=== PATIENT | female | born 1960 | race Caucasian/White ===

== ENCOUNTER 2017-10-24 09:19 | Day surgery (SDC) | payer OTHER ==
[~2017-10-24] VITALS: Ht 160 cm; Wt 95.0 kg
[~2017-10-24 09:19] MED LIST: CEFAZOLIN 1000MG IV PUSH 5 ML IV SCH; D5W AND 1/4NSS 1000 ML IV SCH; PATIENT'S ALLERGY INFO NEEDS ENTERED SCH
[2017-10-24 10:25] LABS: INR 2.9 (0.9-1.1); PARTIAL THROMBOPLASTIN RATIO 1.6; PROTHROMBIN TIME (PATIENT) 32.3 SECONDS (9.0-12.0)
[2017-10-24] MEDS ORDERED: CEFAZOLIN 1000MG IV PUSH 5 ML IV SCH (10:30)
[2017-10-24 10:34] LABS: POTASSIUM 5.4 mmol/L (3.5-5.1)
--- NOTE | 2017-10-24 10:50 | History and Physical ---
History & Physical Date Oct 24, 2017. Chief Complaint Malfunctioning right arm fistula History of Present Illness The patient is a 57 year old female who has a right upper arm fistula which is not running well. It has been there for over a year according to her. She is admitted for a fistulogram with possible intervention. Allergies Coded Allergies: Oxycodone (Verified Allergy, Intermediate, HIVES, 10/24/17) PER [facility] Sulfa Antibiotics (Verified Allergy, Intermediate, HIVES, 10/24/17) PER [facility] Hydrochlorothiazide w/Triamterene (Verified Allergy, Unknown, UNKNOWN, 10/24/17) Sulfonylureas (Verified Allergy, Unknown, UNKNOWN, 10/24/17) Uncoded Allergies: CARBONIC (Allergy, Unknown, UNKNOWN, 10/24/17) CRBONIC ANHYDRASE INHIBITORS Home Medications Scheduled Atorvastatin (Lipitor), 40 MG PO DAILY Bumetanide (Bumex), 1 TAB PO DAILY Calcium Carbonate (Tums), 1 TAB PO DAILY Cholecalciferol (Vitamin D3), 1 TAB PO DAILY Docusate Sodium (Docusate Sodium), 1 CAP PO BID Insulin Glargine (Lantus), 42 SC QAM Levothyroxine Sodium (Levothyroxine Sodium), 1 TAB PO DAILY Levothyroxine Sodium (Levothyroxine Sodium), 1 TAB PO DAILY Lidocaine-Prilocaine (Lidocaine/Prilocaine), 1 APPLN TOP 3XWK Melatonin (Melatonin), 2 TABS PO QPM Metoprolol Tartrate (Lopressor), 1 TAB PO BID Polyethylene Glycol 3350 (Miralax), 17 GM PO DAILY Pramipexole (Mirapex), 0.25 MG PO HS Senna (Senokot), 2 TAB PO HS Sertraline Hcl (Zoloft), 37.5 MG PO HS Warfarin Sod (Jantoven), 3 MG PO DAILY [Humalog], 4 UNITS SQ HS Scheduled PRN Acetaminophen (Tylenol), 2 TAB PO Q6 PRN for Pain Acetaminophen Tab (Tylenol), 650 MG PO Q4 PRN for Pain Bisacodyl (Bisacodyl), 1 TAB PO UD PRN for Constipation [Bisacodyl Supp], 1 SUPP RE DAILY PRN for Constipation Surgical / Medical History Hx Abdominal Surgery: Yes (3 c-sections) Past Medical/Surgical History: Depression, Diabetes, Kidney Disease, Thyroid Disease Social History Smoking Status: Former Smoker Hx Tobacco Use In Past Year?: No Hx Alcohol Use - Type & Amnt: No Hx Substance Use -Type & Amnt: No Review of Systems Constitutional: No chills, No diaphoresis, No fever, No malaise, No weakness, No weight gain, No weight loss, No sweats, No fatigue, No problem reported Respiratory: No cough, No cyanosis, No RAMIREZ, No hemoptysis, No orthopnea, No PND , No short of breath, No sputum production, No stridor, No wheezing, No dyspnea , No problem reported Cardiovascular: No chest pain, No chest tightness, No chest pressure, No palpitations, No syncope, No diaphoresis, No edema, No intermittent claudication , No orthopnea, No cyanosis, No mumur, No lightheadedness, No paroxysmal nocturnal dyspnea, No problem reported Gastrointestinal: No abdominal pain, No constipation, No diarrhea, No nausea, No vomiting, No anorexia, No appetite changes, No belching, No flatulence, No food intolerance, No hematemesis, No hemorrhoids, No hematochezia, No stool changes, No heartburn, No indigestion, No dysphagia, No rectal bleeding, No problem reported Musculoskeletal: No back pain, No gout, No joint pain, No joint swelling, No muscle pain, No muscle stiffness, No muscle weakness, No neck pain, No problem reported Neurologic: No dizziness, No weakness, No headache, No lethargy, No numbness, No paresthesia, No pre-existing deficit, No seizures, No tics, No tingling, No tremors, No vertigo, No memory loss, No LOC, No problem reported Psychiatric: + depression Physical Exam Constitutional: General Apperance: overweight Level of Distress: NAD Ambulation: ambulating normally Psychiatric: Mental Status: active & alert, normal mood, normal affect Orientation: oriented except where noted, to time, to place, to person Memory: recent memory normal, remote memory normal Head: normocephalic Lungs: Auscultation: breath sounds normal Cardiovascular: Heart Auscultation: RRR Peripheral Pulses: Radial Pulse: normal on the left, normal on the right Femoral Pulse: normal on the left, normal on the right Abdomen: Inspection & Palpation: soft Musculoskeletal: normal Extremities: Upper Right: no cyanosis, no edema, no varicosities, no palpable cord, no clubbing, no ulcers, no mottling Upper Left: no cyanosis, no edema, no varicosities, no palpable cord, no clubbing, no ulcers, no mottling Lower Right: no cyanosis, no edema, no varicosities, no palpable cord, no clubbing, no ulcers, no mottling, pertinent finding (thrill in antecubital fossa ) Lower Left: no cyanosis, no edema, no varicosities, no palpable cord, no clubbing, no ulcers, no mottling Neurologic: Cranial Nerves: grossly intact Sensation: grossly intact Assessment and Plan Imp: Malfunctioning right arm fistula Plan: Patient admitted for a fistulogram with possible intervention. I have discussed the risks options and benefits of the procedure with the patient. The patient understands the risks options and benefits and agrees to the procedure.
--- NOTE | 2017-10-24 10:50 | Procedure Note ---
Pre-Mod Sedation Assessment General Date of Moderate Sedation: Oct 24, 2017. Pre-Sedation Airway Assessment Oral Cavity: WNL Short Thick Neck: Yes Hx of Sleep Apnea: No Smoking Status: Former Smoker Mallampati Classification: Class I ASA Classification: Class III Notes The planned sedation has been discussed with the patient and consent obtained. I have identified the patient, determined the appropriateness of sedation and have assessed the patient immediately prior to the procedure. All medicine(s) and interventions are by my order.
[2017-10-24 10:53] VITALS: BP 131/66; PULSE 70; TEMP 36.7; O2SAT 100; Ht 160 cm; Wt 95.0 kg
[2017-10-24] MEDS ORDERED: CEFAZOLIN SOD 2000MG/10 ML IV PUSH IV ONE (11:03)
[2017-10-24] MEDS ORDERED: FENTANYL CITRATE INJ 50 MCG/1 ML 2 ML VIAL ONE (11:07)
[2017-10-24] MEDS ORDERED: MIDAZOLAM HCL 1 MG/ML 2ML VIAL ONE (11:07)
[2017-10-24] MEDS ORDERED: CLINDAMYCIN 600 MG/54 ML D5W IV ONE (11:13)
[2017-10-24] MEDS ORDERED: CLINDAMYCIN IV 600 MG in DEXTROSE 5% 50ML 50 ML IV ONE (11:15)
[2017-10-24] MEDS ORDERED: LIDO1CRE16 TOP (11:16)
[2017-10-24] MEDS ORDERED: BUME2TAB3 PO (11:16)
[2017-10-24] MEDS ORDERED: POLY335019 PO (11:16)
[2017-10-24] MEDS ORDERED: CALC500C3 PO (11:16)
[2017-10-24] MEDS ORDERED: WARF3TAB6 PO (11:16)
[2017-10-24] MEDS ORDERED: MELA1TAB49 PO (11:16)
[2017-10-24] MEDS ORDERED: METO-551 PO (11:16)
[2017-10-24] MEDS ORDERED: INSDGI SC (11:16)
[2017-10-24] MEDS ORDERED: LEVO200T6 PO (11:16)
[2017-10-24] MEDS ORDERED: LEVO25TA5 PO (11:16)
[2017-10-24] MEDS ORDERED: PRAM0.129 PO (11:16)
[2017-10-24] MEDS ORDERED: HUMALOG SQ (11:16)
[2017-10-24] MEDS ORDERED: SERT25TA PO (11:16)
[2017-10-24] MEDS ORDERED: LPT/40 PO (11:16)
[2017-10-24] MEDS ORDERED: DOCU100C31 PO (11:16)
[2017-10-24] MEDS ORDERED: CHOL20007 PO (11:16)
[2017-10-24] MEDS ORDERED: SENN-61 PO (11:16)
[2017-10-24] MEDS ORDERED: BISACODYL SUPP RE (11:30)
[2017-10-24] MEDS ORDERED: ACET325T96 PO (11:30)
[2017-10-24] MEDS ORDERED: ACET-1256 PO (11:30)
[2017-10-24] MEDS ORDERED: BISA1TAB15 PO (11:30)
[2017-10-24] MEDS ORDERED: LIDOCAINE HCL 1% 20 ML VIAL INJ ONE (11:36)
--- NOTE | 2017-10-24 11:47 | [facility] Post Operative Brief Note ---
Immediate Operative Summary Operative Date Oct 24, 2017. Pre-Operative Diagnosis Malfunctioning Fistula Post-Operative Diagnosis Same Procedure(s) Performed Fistulogram Surgeon Derrick Methods Study Analyst Surgeon(s) None Estimated Blood Loss 1 Findings proximal stenosis at arterial anastomosis Specimens None Anesthesia Local Complication(s) None Disposition
--- NOTE | 2017-10-24 11:50 | Discharge Instructions ---
Discharge Instructions Date of Service Oct 24, 2017. Visit Reason for Visit: End Stage Renal Disease - On Hemodialysis Discharge Discharge Diagnosis / Problem: Malfunctioning fistula right arm Discharge Goals Goal(s): Diagnostic testing Activity Recommendations Activity Limitations: resume your previous activity Anesthesia . Post Anesthesia Instructions: If you have had General Anesthesia or IV Sedation: * Do not drive today. * Resume driving when surgeon permits. * Do not make important decisions or sign legal documents today. * Call surgeon for: 1. Temperature elevations greater than 101 degrees F. 2. Uncontrollable pain. 3. Excessive bleeding. 4. Persistent nausea and vomiting. 5. Medication intolerance (nausea, vomiting or rash). * For nausea and vomiting use only clear liquids such as: tea, soda, bouillon until nausea subsides, then gradually increase diet as tolerated. * If you have any concerns or questions, call your surgeon's office. If physician is unavailable and it is an emergency, call 911 or go to the nearest emergency room. . Instructions / Follow-Up Instructions / Follow-Up Call [phone] to schedule a follow up appointment if one not already scheduled. SPECIAL CARE INSTRUCTIONS: Medications: * Continue to take your medications as directed. If you have been given a prescription for Plavix, please fill it immediately and take as directed. Incision Care: * Your puncture site may have some bruising and minor swelling for about one week. * You will have a small dressing covering your puncture site. You may remove the dressing after 24 hours and shower. You may let the warm soapy water run over it, but be sure to dry the puncture site well and keep it dry. * DO NOT IMMERSE THE INCISION IN A TUB/POOL/etc. UNTIL HEALED. * Puncture sites should be kept covered with a band-aid until it begins to heal. Restrictions: * Depending on whether you leg or arm was punctured to access the arteries, you will be required to lay flat, hold your arm still, or both, for about 4 hours after the procedure to prevent bleeding. * Limit your activity for the first 48 hours. You may walk and go up and down steps. Avoid excessive bending or movement at the puncture site. Possible Complications: * Excessive Swelling - after blood flow is improved you may notice increased swelling in the lower legs. This is a normal response. This usually depends on the amount of blockages in the leg, how long they have been there prior to your procedure and how much blood flow was restored. Elevating your legs will help to improve this. Please notify our office ([phone] ) if the swelling does not go away after lying in bed overnight. * Infection/Drainage/Bleeding - Drainage or bleeding from the puncture site should be minimal. If you have excessive bleeding or drainage, call our office ([phone]) right away. * Pain - You may experience some mild pain or soreness at your puncture site. If your pain does not improve, please contact our office ([phone]). Call your doctor and seek emergent treatment if you develop: * Temperature above 101 degrees * Any fever or chills * Any redness or purulent drainage from the puncture site * Any new dusky/blue colored toes or feet with coolness or sharp or aching pain. SKIN IRRITATION: * You may experience some redness and/or swelling in the area where radiation was administered. If any skin irritation occurs, please contact your family physician. FOLLOW UP VISIT: Keep any scheduled doctor appointments. Diet Recommendations Recommended Home Diet: resume previous diet Procedures Procedures Performed: Fistulogram Pending Studies Studies pending at discharge: no Medical Emergencies . Who to Call and When: Medical Emergencies: If at any time you feel your situation is an emergency, please call 911 immediately. . Non-Emergent Contact Non-Emergency issues call your: Surgeon . . "Provider Documentation" section prepared by Dayton Meza. .
[2017-10-24] MEDS ORDERED: OPTIRAY 300 IV ONE (11:51)
--- NOTE | 2017-10-24 11:54 | [facility] Operative Report ---
Operative Report Operative Date Oct 24, 2017. Pre-Operative Diagnosis Malfunctioning Fistula Post-Operative Diagnosis Same Procedure(s) Performed Fistulogram Surgeon Derrick Tunnel Elastic Operator Chainstitch Surgeon(s) None Estimated Blood Loss 1 Findings Proximal stenosis at the arterial end of the fistula Specimens None Anesthesia Local Complication(s) None Disposition Indications This is a 57-year-old female with a right arm fistula. They are having poor flows at dialysis. A fistulogram was recommended. I have discussed the risks options and benefits of the procedure with the patient. The patient understands the risks options and benefits and agrees to the procedure. Description of Procedure The patient was taken to the angiogram suite and placed in the supine position. The right arm was then prepped and draped in a sterile manner. Local anesthetic was administered and a percutaneous puncture was then made of the proximal portion of the right arm AV fistula using micropuncture technique. Micropuncture wire and sheath were then inserted. A fistulogram was then performed. The fistulogram showed a widely patent fistula. The previously stented area in the proximal cephalic vein had the mild stenosis. The narrowing was not significant. The proximal Central veins are widely patent. We then compressed the fistula and a retrograde injection was performed. 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 The vein proximal to this venous aneurysm was small all the way to the arterial anastomosis. This is most likely restricting the arterial flow into the fistula. Due to its location balloon and stenting would not be feasible with this lesion. This will have to undergo open repair. The sheath was then pulled and pressure was applied. Adequate hemostasis was obtained. The patient left the angiogram suite in good condition and tolerated the procedure well. I attest to the content of the Intraoperative Record and any orders documented therein. Any exceptions are noted below.
[2017-10-24 11:57] VITALS: BP 116/57; PULSE 70; TEMP 36.6; O2SAT 95
[2017-10-24 12:27] VITALS: BP 107/68; PULSE 75; TEMP 36.6; O2SAT 99
== END 2017-10-24 12:32 | disposition home or self-care (01) ==
LOC: C.ACU 09:19
PROVIDERS: ATTEND Surgery Vascular Surgery
DX: T82.858A Stenosis of other vascular prosthetic devices, implants and grafts, initial encounter (principal); X58.XXXA Exposure to other specified factors, initial encounter; E11.22 Type 2 diabetes mellitus with diabetic chronic kidney disease; N18.6 End stage renal disease; Z99.2 Dependence on renal dialysis; E07.9 Disorder of thyroid, unspecified; F32.9 Major depressive disorder, single episode, unspecified; Z87.891 Personal history of nicotine dependence; Z79.01 Long term (current) use of anticoagulants; Z79.4 Long term (current) use of insulin; Z79.899 Other long term (current) drug therapy

== ENCOUNTER → 2017-11-14 | Day surgery (SDC) | payer OTHER ==
[2017-11-13 08:05] VITALS: BMI 37.0
[~2017-11-14] VITALS: Ht 160 cm; Wt 95.0 kg
[~2017-11-14] MED LIST changes: +ACET-1256 PO; +ACET-1311 PO; +ACET-1693 PO; +ANCEF~ALLERGY NOTED TO ORDERED MEDICATION SCH; +AQUACEL EXT; +ATOR-24 PO; +ATROPINE SULFATE 0.1 MG/ML 5ML SYR IV PRN; +BACIOIN2 TOP; +BISA10SU13; +BISA1TAB15 PO; +BISA1TAB25 PO; +BISACODYL SUPP; +BISACODYL SUPP RE; +BUME2TAB3 PO; +BUPIVACAINE/EPINEPHRINE 0.5% MPF 1:200,000 30 ML VIAL ONE; +CALC500C3 PO; +CDXG40WC TP; +CHOL20007 PO; +CHOL20009 PO; +CLINDAMYCIN 600 MG/54 ML D5W IV ONE; +CLINDAMYCIN IV 600 MG in DEXTROSE 5% 50ML 50 ML IV ONE; +CLINDAMYCIN PHOS 150 MG/ML 2 ML VIAL IV SCH; +CMD/25 PO; -D5W AND 1/4NSS 1000 ML IV SCH; +DLC5 PO; +DOCU100C31 PO; +ENOX30IN4 SQ; +ERYOPO OPB; +EpHEDrine SULFATE INJ 50 MG/ML AMP IV PRN; +FENTANYL CITRATE INJ 50 MCG/1 ML 2 ML VIAL IV PRN; +FENTANYL CITRATE INJ 50 MCG/1 ML 2 ML VIAL ONE; +GELATIN SPONGE 12-7MM ONE; +HEPARIN SOD (PORCINE) 1000 UNIT/ML 10 ML VIAL ONE; +HUMALOG SQ; +HYDROmorphone INJ 1 MG/ML SYR IV PRN; +INSDGI SC; +INSDGIPEN SC; +INSU100I SC; +KFL/250 PO; +LABETALOL HCL IV 5 MG/ML 20ML IV PRN; +LEVO1TAB33 PO; +LEVO200T6 PO; +LEVO25TA5 PO; +LEVO50TA PO; +LEVO50TA6 PO; +LIDO1CRE16 TOP; +LIDOCAINE HCL 1% 20 ML VIAL ONE; +LIDOCAINE HCL 2% 2 ML VIAL (20MG/ML) ONE; +LPT/40 PO; +MELA1TAB49 PO; +MELA1TAB5 PO; +MEPERIDINE HCL 25 MG/ML CARP IV PRN; +METO-551 PO; +METO25TA56 PO; +MIDAZOLAM HCL 1 MG/ML 2ML VIAL ONE; +MRLP17X PO; +ONDANSETRON INJ 2 MG/ML 2 ML VIAL IV PRN; +PANT1TAB3 PO; +PANT40TA PO; -PATIENT'S ALLERGY INFO NEEDS ENTERED SCH; +PHENYLEPHRINE 100MCG/ML 5ML SYR ONE; +POLY335019 PO; +PRAM0.1212 PO; +PRAM0.259 PO; +PROPOFOL IV EMULSION 10 MG/ML 20 ML VIAL IV ONE; +SENN-61 PO; +SERT25TA PO; +SEVE1TAB PO; +SEVE800T7 PO; +SODI650T8 PO; +SODIUM CHLORIDE 0.9% 1000ML 1,000 ML IV SCH; +THROMBIN FOR SOLN 20000 UNIT KIT ONE; +TRAM-10 PO; +Vancomycin IV; +WARF3TAB6 PO; +[UNRECOGNIZED DRUG - OTHER] TOP; +humalog SQ
--- NOTE | 2017-11-14 06:51 | History and Physical ---
History & Physical Date of Service Nov 14, 2017. History & Physical Chief Complaint Malfunctioning right arm fistula History of Present Illness The patient is a 57 year old female who has a right upper arm fistula which is not running well. It has been there for over a year according to her. She had a fistulogram which showed a proximal venous aneurysm and a small vein at the arterial anastomosis. Allergies Coded Allergies: Oxycodone (Verified Allergy, Intermediate, HIVES, 10/24/17) PER [facility] Sulfa Antibiotics (Verified Allergy, Intermediate, HIVES, 10/24/17) PER [facility] Hydrochlorothiazide w/Triamterene (Verified Allergy, Unknown, UNKNOWN, 10/24/17) Sulfonylureas (Verified Allergy, Unknown, UNKNOWN, 10/24/17) Uncoded Allergies: CARBONIC (Allergy, Unknown, UNKNOWN, 10/24/17) CRBONIC ANHYDRASE INHIBITORS Home Medications Scheduled Atorvastatin (Lipitor), 40 MG PO DAILY Bumetanide (Bumex), 1 TAB PO DAILY Calcium Carbonate (Tums), 1 TAB PO DAILY Cholecalciferol (Vitamin D3), 1 TAB PO DAILY Docusate Sodium (Docusate Sodium), 1 CAP PO BID Insulin Glargine (Lantus), 42 SC QAM Levothyroxine Sodium (Levothyroxine Sodium), 1 TAB PO DAILY Levothyroxine Sodium (Levothyroxine Sodium), 1 TAB PO DAILY Lidocaine-Prilocaine (Lidocaine/Prilocaine), 1 APPLN TOP 3XWK Melatonin (Melatonin), 2 TABS PO QPM Metoprolol Tartrate (Lopressor), 1 TAB PO BID Polyethylene Glycol 3350 (Miralax), 17 GM PO DAILY Pramipexole (Mirapex), 0.25 MG PO HS Senna (Senokot), 2 TAB PO HS Sertraline Hcl (Zoloft), 37.5 MG PO HS Warfarin Sod (Jantoven), 3 MG PO DAILY [Humalog], 4 UNITS SQ HS Scheduled PRN Acetaminophen (Tylenol), 2 TAB PO Q6 PRN for Pain Acetaminophen Tab (Tylenol), 650 MG PO Q4 PRN for Pain Bisacodyl (Bisacodyl), 1 TAB PO UD PRN for Constipation [Bisacodyl Supp], 1 SUPP RE DAILY PRN for Constipation Surgical / Medical History Hx Abdominal Surgery: Yes (3 c-sections) Past Medical/Surgical History: Depression, Diabetes, Kidney Disease, Thyroid Disease Social History Smoking Status: Former Smoker Hx Tobacco Use In Past Year?: No Hx Alcohol Use - Type & Amnt: No Hx Substance Use -Type & Amnt: No ROS: Vascular H&P v2 Review of Systems Constitutional: No chills, No diaphoresis, No fever, No malaise, No weakness, No weight gain, No weight loss, No sweats, No fatigue, No problem reported Respiratory: No cough, No cyanosis, No RAMIREZ, No hemoptysis, No orthopnea, No PND , No short of breath, No sputum production, No stridor, No wheezing, No dyspnea , No problem reported Cardiovascular: No chest pain, No chest tightness, No chest pressure, No palpitations, No syncope, No diaphoresis, No edema, No intermittent claudication , No orthopnea, No cyanosis, No mumur, No lightheadedness, No paroxysmal nocturnal dyspnea, No problem reported Gastrointestinal: No abdominal pain, No constipation, No diarrhea, No nausea, No vomiting, No anorexia, No appetite changes, No belching, No flatulence, No food intolerance, No hematemesis, No hemorrhoids, No hematochezia, No stool changes, No heartburn, No indigestion, No dysphagia, No rectal bleeding, No problem reported Musculoskeletal: No back pain, No gout, No joint pain, No joint swelling, No muscle pain, No muscle stiffness, No muscle weakness, No neck pain, No problem reported Neurologic: No dizziness, No weakness, No headache, No lethargy, No numbness, No paresthesia, No pre-existing deficit, No seizures, No tics, No tingling, No tremors, No vertigo, No memory loss, No LOC, No problem reported Psychiatric: + depression Physical Ex: Vascular H&P v2 Physical Exam Constitutional: General Apperance: overweight Level of Distress: NAD Ambulation: ambulating normally Psychiatric: Mental Status: active & alert, normal mood, normal affect Orientation: oriented except where noted, to time, to place, to person Memory: recent memory normal, remote memory normal Head: normocephalic Lungs: Auscultation: breath sounds normal Cardiovascular: Heart Auscultation: RRR Peripheral Pulses: Radial Pulse: normal on the left, normal on the right Femoral Pulse: normal on the left, normal on the right Abdomen: Inspection & Palpation: soft Musculoskeletal: normal Extremities: Upper Right: no cyanosis, no edema, no varicosities, no palpable cord, no clubbing, no ulcers, no mottling Upper Left: no cyanosis, no edema, no varicosities, no palpable cord, no clubbing, no ulcers, no mottling Lower Right: no cyanosis, no edema, no varicosities, no palpable cord, no clubbing, no ulcers, no mottling, pertinent finding (thrill in antecubital fossa ) Lower Left: no cyanosis, no edema, no varicosities, no palpable cord, no clubbing, no ulcers, no mottling Neurologic: Cranial Nerves: grossly intact Sensation: grossly intact A&P: Vascular H&P v2 Assessment and Plan Imp: Malfunctioning right arm fistula Plan: Patient admitted for a revision of her right arm fistula. I have discussed the risks options and benefits of the procedure with the patient. The patient understands the risks options and benefits and agrees to the procedure.
[2017-11-14 11:03] VITALS: BP 152/62; PULSE 74; TEMP 36.5; O2SAT 99; Ht 160 cm; Wt 95.0 kg
[2017-11-14 11:25] LABS: INR 1.2 (0.9-1.1); PTT PATIENT 29.9 SECONDS (21.0-31.0)
[2017-11-14 11:47] LABS: CALCIUM 9.4 mg/dl (8.5-10.1); CREATININE 6.65 mg/dl (0.60-1.20); POTASSIUM 5.3 mmol/L (3.5-5.1)
--- NOTE | 2017-11-14 14:27 | [facility] Post Operative Brief Note ---
Immediate Operative Summary Operative Date Nov 14, 2017. Pre-Operative Diagnosis Malfunctioning Right Arm Fistula Post-Operative Diagnosis Malfunctioning Right Arm Fistula Procedure(s) Performed Revision Right Upper Extremity Arteriovenous Fistula Surgeon Dr. Naomy Meza Accounting Specialist Surgeon(s) none Estimated Blood Loss 50mL Findings good thrill Specimens none per surgeon Anesthesia MAC Complication(s) None Disposition Recovery Room / PACU
--- NOTE | 2017-11-14 14:30 | Discharge Instructions ---
Discharge Instructions Date of Service Nov 14, 2017. Visit Reason for Visit: End Stage Renal Disease -On Hemodialysis Discharge Discharge Diagnosis / Problem: Malfunctioning fistula Discharge Goals Goal(s): Therapeutic intervention Activity Recommendations Activity Limitations: per Instructions/Follow-up section Anesthesia . Post Anesthesia Instructions: If you have had General Anesthesia or IV Sedation: * Do not drive today. * Resume driving when surgeon permits. * Do not make important decisions or sign legal documents today. * Call surgeon for: 1. Temperature elevations greater than 101 degrees F. 2. Uncontrollable pain. 3. Excessive bleeding. 4. Persistent nausea and vomiting. 5. Medication intolerance (nausea, vomiting or rash). * For nausea and vomiting use only clear liquids such as: tea, soda, bouillon until nausea subsides, then gradually increase diet as tolerated. * If you have any concerns or questions, call your surgeon's office. If physician is unavailable and it is an emergency, call 911 or go to the nearest emergency room. . Instructions / Follow-Up Instructions / Follow-Up Call [phone] to schedule a follow up appointment if one not already scheduled. ACTIVITY RECOMMENDATIONS: See Above SPECIAL CARE INSTRUCTIONS: Call your doctor if: * Temperature above 101 degrees * Pain not relieved by pain medicine ordered * There is increased drainage or redness from any incision * You have any unanswered questions or concerns. Diet Recommendations Recommended Home Diet: resume previous diet Procedures Procedures Performed: Revision Right Upper Extremity Arteriovenous Fistula Pending Studies Studies pending at discharge: no Medical Emergencies . Who to Call and When: Medical Emergencies: If at any time you feel your situation is an emergency, please call 911 immediately. . Non-Emergent Contact Non-Emergency issues call your: Surgeon . . "Provider Documentation" section prepared by Dayton Meza. .
--- NOTE | 2017-11-14 14:50 | Anesthesiology Progress Note ---
Anesthesia Post Op Note Date & Time Nov 14, 2017 at 14:49 Vital Signs Pain Intensity: 0 Vital Signs Past 12 Hours Date Time Temp Pulse Resp B/P (MAP) Pulse Ox O2 Delivery O2 Flow Rate FiO2 11/14/17 11:03 36.5 74 18 152/62 (92) 99 Room Air Notes Mental Status: alert / awake / arousable, participated in evaluation Pt Amnestic to Procedure: Yes Nausea / Vomiting: adequately controlled Pain: adequately controlled Airway Patency, RR, SpO2: stable & adequate BP & HR: stable & adequate Hydration State: stable & adequate Anesthetic Complications: no major complications apparent
[2017-11-14 15:29] VITALS: BP 109/30; PULSE 79; TEMP 36.6; O2SAT 94
--- NOTE | 2017-11-14 15:37 | OPERATIVE REPORT ---
DATE OF OPERATION: 11/14/2017 PREOPERATIVE DIAGNOSIS: Malfunctioning right arm arteriovenous fistula. POSTOPERATIVE DIAGNOSIS: Same. PROCEDURE: Revision of right upper arm AV fistula with venorrhaphy and reanastomosis. SURGEON: Dr. Meza. ANESTHETIC: MAC. PROCEDURE INDICATIONS: The patient is a 57-year-old female with a fistula in her right arm. The arterial anastomosis was very stenotic and the venous aneurysm was found right beyond it. The flow through the fistula was very slow. Revision was recommended. She understood the risks, options and benefits and agreed to go ahead with this procedure. The patient was taken to the operating room and placed in supine position. The risks, options and benefits were discussed with the patient. The patient understood the risks involved and agreed to go ahead with this procedure. OPERATION AND FINDINGS: The patient was taken to the operating room and placed in supine position. After the right upper arm was prepped and draped in a sterile manner local anesthetic was administered. An oblique incision was made over the long side and the venous aneurysm and over the arterial anastomosis. The venous aneurysm and fistula were isolated. Beyond the venous aneurysm fistula was of good caliber. Proximal to the small venous aneurysm which was walnut size there was severe sclerotic stenotic cephalic vein. This was ligated and then divided. The aneurysm was freed up. This freed back to good vein. The aneurysm was then opened longitudinally. The excess tissue was removed and a venorrhaphy was performed using running 5-0 Prolene suture. Once this was completed, clamp was removed from the fistula and placed on the proximal end. Adequate hemostasis was seen. The brachial artery was then identified and clamped proximally and distally. Longitudinal arteriotomy was then made. End-to-side anastomosis was accomplished between the cephalic vein and the brachial artery using a running 6-0 Prolene suture in the usual vascular fashion. The backbleeding and forward bleeding was allowed to occur and the final few sutures were placed and securely tied. Clamps were then removed. Adequate hemostasis was seen of the suture line. There was good thrill through the fistula with a good thrill felt. At that point after adequate hemostasis was noted, the wound was closed in the usual fashion using running 3-0 Vicryl suture for the subcutaneous layer and running 4-0 subcuticular suture for the skin edges. Dermabond was used for a dressing. The patient left the operating room in satisfactory condition and tolerated the procedure well. I attest to the content of the Intraoperative Record and any orders documented therein. Any exception s are noted below.
[2017-11-14 16:00] VITALS: BP 99/47; PULSE 80; TEMP 36.5; O2SAT 99
== END | disposition home or self-care (01) ==
LOC: C.ACU 10:31
PROVIDERS: ATTEND Surgery Vascular Surgery
DX: T82.590A Other mechanical complication of surgically created arteriovenous fistula, initial encounter (principal); Y83.2 Surgical operation with anastomosis, bypass or graft as the cause of abnormal reaction of the patient, or of later complication, without mention of misadventure at the time of the procedure; N18.6 End stage renal disease; E11.9 Type 2 diabetes mellitus without complications; F32.9 Major depressive disorder, single episode, unspecified; E07.9 Disorder of thyroid, unspecified; Z79.4 Long term (current) use of insulin; Z79.01 Long term (current) use of anticoagulants; Z87.891 Personal history of nicotine dependence

== ENCOUNTER 2017-11-22 14:56 | Inpatient (IN) | payer OTHER ==
[~2017-11-22] VITALS: Ht 160 cm; Wt 110.2 kg
[~2017-11-22 14:56] MED LIST changes: -ACET-1311 PO; -ACET-1693 PO; +ACET325T96 PO; -ANCEF~ALLERGY NOTED TO ORDERED MEDICATION SCH; -AQUACEL EXT; -ATOR-24 PO; -ATROPINE SULFATE 0.1 MG/ML 5ML SYR IV PRN; -BACIOIN2 TOP; -BISA10SU13; -BISA1TAB25 PO; -BISACODYL SUPP; -BUPIVACAINE/EPINEPHRINE 0.5% MPF 1:200,000 30 ML VIAL ONE; -CDXG40WC TP; -CEFAZOLIN 1000MG IV PUSH 5 ML IV SCH; -CHOL20009 PO; -CLINDAMYCIN 600 MG/54 ML D5W IV ONE; -CLINDAMYCIN IV 600 MG in DEXTROSE 5% 50ML 50 ML IV ONE; -CLINDAMYCIN PHOS 150 MG/ML 2 ML VIAL IV SCH; -DLC5 PO; -ERYOPO OPB; -EpHEDrine SULFATE INJ 50 MG/ML AMP IV PRN; -FENTANYL CITRATE INJ 50 MCG/1 ML 2 ML VIAL IV PRN; -FENTANYL CITRATE INJ 50 MCG/1 ML 2 ML VIAL ONE; -GELATIN SPONGE 12-7MM ONE; -HEPARIN SOD (PORCINE) 1000 UNIT/ML 10 ML VIAL ONE; -HYDROmorphone INJ 1 MG/ML SYR IV PRN; -INSDGIPEN SC; -INSU100I SC; -KFL/250 PO; -LABETALOL HCL IV 5 MG/ML 20ML IV PRN; -LEVO1TAB33 PO; -LEVO50TA PO; -LEVO50TA6 PO; -LIDOCAINE HCL 1% 20 ML VIAL ONE; -LIDOCAINE HCL 2% 2 ML VIAL (20MG/ML) ONE; -MELA1TAB5 PO; -MEPERIDINE HCL 25 MG/ML CARP IV PRN; -METO25TA56 PO; -MIDAZOLAM HCL 1 MG/ML 2ML VIAL ONE; -MRLP17X PO; -ONDANSETRON INJ 2 MG/ML 2 ML VIAL IV PRN; -PANT1TAB3 PO; -PANT40TA PO; -PHENYLEPHRINE 100MCG/ML 5ML SYR ONE; -PRAM0.1212 PO; +PRAM0.129 PO; -PRAM0.259 PO; -PROPOFOL IV EMULSION 10 MG/ML 20 ML VIAL IV ONE; -SEVE1TAB PO; -SEVE800T7 PO; -SODI650T8 PO; -SODIUM CHLORIDE 0.9% 1000ML 1,000 ML IV SCH; -THROMBIN FOR SOLN 20000 UNIT KIT ONE; -Vancomycin IV; -[UNRECOGNIZED DRUG - OTHER] TOP
[2017-11-22 21:49] VITALS: BP 131/39; PULSE 69; TEMP 36.8; O2SAT 99; Ht 160 cm; Wt 110.2 kg
[2017-11-22] MEDS ORDERED: BISA10SU13 (22:29)
[2017-11-22] MEDS ORDERED: PANT40TA PO (22:29)
[2017-11-22] MEDS ORDERED: ONDANSETRON INJ 2 MG/ML 2 ML VIAL IV PRN (23:30)
[2017-11-22] MEDS ORDERED: ALUMINUM/MAGNESIUM/SIMETH (MAALOX MAX) 30 ML UDC PO PRN (23:30)
[2017-11-22] MEDS ORDERED: MAGNESIUM HYDROXIDE SUSP 30 ML UDC PO PRN (23:30)
[2017-11-22 23:59] VITALS: O2SAT 99
[2017-11-23] VITALS (25 sets, daily range): BP systolic 84–149; BP diastolic 45–81; PULSE 75–99; TEMP 36.5–37.1; O2SAT 96–99
--- NOTE | 2017-11-23 00:02 | History and Physical ---
History & Physical Date & Time of Service: Nov 23, 2017 at 00:02 Chief Complaint: Fistula Placement Primary Care Physician: Marco Connolly M.D. History of Present Illness Source: patient, hospital records This is a 57 yo F w/ h/o T2DM, CKD Stage IV on Dialysis, CVA (1979) Hypothyroid, recurrent uti , obesity, Afib (on Coumadin), CAD, HTN, HLD, Depression, direct transfer from [facility]. Patient reports she was at her scheduled dialysis appointment and her AV fistula was malfunctioning. She received a partial dialysis treatment and was subsequently sent to [facility] and subsequently transferred to [facility] for management. Patient reports no complaints. She denies chest pain, SOB, palpitation, edema , [place], visual changes, NV, fatigue. She reports she is not completely anuric. Outside hospital labs: WBC 10.5 Hgb 10 Hct 29.9 Cr 7.9 BUN 92 Gl 345 Na 131 K 5.3 Cl 93 Ca 8.4 CO2 24 AST 35 ALT35 ALP 151 Bili 0.2 Alb 2.8 Tot protein 8.5 PT 24.8 INR 2.4 APTT 37.3 Past Medical/Surgical History Past Med Hx: CVA (1979) Hypothyroid recurrent ut, ckd stage iv on dilaysis obesity Afib (on coumadin) CAD HTN HLD Depression Past Surg Hx Cholecystectomy Cataract removal Tubal ligation, bladder tuck Family History Diabetes , Heart disease , Asthma Social History Smoking Status: Former Smoker Smokeless Tobacco Use: No Alcohol Use: none Drug Use: none Occupational Status: disabled Immunizations History of Influenza Vaccine: Unknown History of Tetanus Vaccine?: Unknown History of Pneumococcal: Unknown History of Hepatitis B Vaccine: Unknown Multi-Drug Resistant Organisms History of MDRO: No Allergies Coded Allergies: Oxycodone (Verified Allergy, Intermediate, HIVES, 11/14/17) PER [employer] REC[employer] Sulfa Antibiotics (Verified Allergy, Intermediate, HIVES, 11/14/17) PER [employer] REC[employer] Cephalexin (Verified Allergy, Mild, HIVES, 11/14/17) Hydrochlorothiazide w/Triamterene (Verified Allergy, Unknown, UNKNOWN, ) Sulfonylureas (Verified Allergy, Unknown, UNKNOWN, 11/14/17) Uncoded Allergies: CARBONIC (Allergy, Unknown, UNKNOWN, 10/24/17) CRBONIC ANHYDRASE INHIBITORS Home Medications Scheduled Atorvastatin (Lipitor), 40 MG PO DAILY Bumetanide (Bumex), 1 TAB PO DAILY Calcium Carbonate (Tums), 2 TAB PO TIDM Cholecalciferol (Vitamin D3), 1 TAB PO DAILY Docusate Sodium (Docusate Sodium), 1 CAP PO BID Insulin Glargine (Lantus), 42 SC QAM Levothyroxine Sodium (Levothyroxine Sodium), 1 TAB PO DAILY Levothyroxine Sodium (Levothyroxine Sodium), 1 TAB PO DAILY Lidocaine-Prilocaine (Lidocaine/Prilocaine), 1 APPLN TOP 3XWK Melatonin (Melatonin), 2 TABS PO QPM Metoprolol Tartrate (Lopressor), 1 TAB PO PM Pantoprazole (Protonix), 1 TAB PO DAILY Polyethylene Glycol 3350 (Miralax), 17 GM PO DAILY Pramipexole (Mirapex), 0.25 MG PO HS Senna (Senokot), 1 TAB PO HS Sertraline Hcl (Zoloft), 37.5 MG PO HS Warfarin Sod (Jantoven), 3 MG PO 4XWK Warfarin Sod (Coumadin), 1 TAB PO 3XWK [Humalog], 4 UNITS SQ HS [humalog], 7 UNITS SQ TIDM Scheduled PRN Acetaminophen Tab (Tylenol), 650 MG PO Q4 PRN for Pain Bisacodyl (Bisacodyl), 1 TAB PO UD PRN for Constipation Bisacodyl (Biscolax), DAILY PRN for Constipation Tramadol (Ultram), 50 MG PO Q4H PRN for Pain Review of Systems Constitutional: No fever, No chills, No weakness Respiratory: No cough, No sputum, No shortness of breath Cardiovascular: No chest pain, No edema, No palpitations Abdomen: No pain, No nausea, No vomiting, No diarrhea, No constipation Genitourinary - Female: No dysuria, No urinary frequency, No urinary urgency, No hematuria Neurologic: No weakness, No numbness/tingling Integumentary: No rash, No itch Physical Exam Vital Signs Date Time Temp Pulse Resp B/P (MAP) Pulse Ox O2 Delivery O2 Flow Rate FiO2 11/23/17 00:01 36.9 75 20 115/58 (77) 98 Room Air 11/22/17 21:49 36.8 69 20 131/39 99 Room Air General Appearance: WD/WN, no apparent distress, + obese Head: normocephalic, atraumatic Eyes: normal inspection, PERRL, EOMI Neck: supple, no adenopathy, trachea midline Respiratory/Chest: lungs clear, normal breath sounds, no respiratory distress Cardiovascular: regular rate, rhythm, no murmur Abdomen/GI: normal bowel sounds, non tender, soft Neurologic/Psych: alert, normal mood/affect, oriented x 3 Diagnostics Laboratory Results Results Past 24 Hours Test 11/22/17 21:36 Range/Units Bedside Glucose 273 70-90 mg/dl Microbiology Results 11/22/17 MRSA DNA Surveillance Screen, Ordered Pending Impression Assessment and Plan 57 yo F w/ T2DM , CVA (1979) Hypothyroid, recurrent uti, ckd stage iv on dialysis , obesity, Afib (on Coumadin), CAD, HTN, HLD, Depression presenting w/ malfunctioning AV fistula while attempting to receive scheduled Dialysis treatment AV Fistula Malfunction, CKD Stage IV -Admitted to Telemetry - outside labwork: Cr. 7.9, - Consulted Critical care for dialysis catheter placement - typically received dialysis s Mon. ,Wed., Sat. - Plan for dialysis today Afib - in sinus rhythm - Coumadin held prior to procedure -Metoprolol held -Continue to monitor Hypothyroidism -Synthroid T2DM Outside labwork: Glucose 345 prior to arrival -improved to 132 on arrival -glycemic consult Depression - Zoloft CAD, HLD, HTN -Statin DVT Prophaylxis -SCD's -Coumadin held prior to procedure Attending addendum: I have physically seen this patient, have supervised the medical residents activities, and agree with the H&P unless as otherwise noted. Assessment and Plan: End-stage renal disease on hemodialysis/AV fistula malfunction/transfer from [facility] for catheter placement for dialysis-- The patient will be admitted to telemetry for serial cardiac enzymes, cardiac rhythm monitoring and a 2-D echocardiogram with Dopplers. Warfarin to be held preprocedure Consult office machinery or equipment installer for dialysis catheter placement Consult nephrology for dialysis CAD/hypertension/atrial fibrillation-- Hold warfarin Continue bumetanide, metoprolol tartrate Diabetes mellitus-- continue Lantus [address] on Accu-Cheks before meals and at bedtime with NovoLog coverage per scale Hyperlipidemia-- Continue atorvastatin 40 mg by mouth daily Hypothyroidism-- Continue levothyroxine sodium Restless leg syndrome-- Continue Mirapex 0.25 mg by mouth at bedtime GERD-- continue pantoprazole 40 mg by mouth daily Depression--continue sertraline 37.5 mg by mouth at bedtime Level of Care Telemetry Advanced Directives Existing Living Will: Yes Existing Power of Bsa Officer: Yes (Brother and Sister) Resuscitation Status FULL RESUSCITATION VTE Prophylaxis VTE Risk Assessment Done? Y/N: Yes Risk Level: Moderate Given or contraindicated: Warfarin (Coumadin) Social Service Consult None Apply
[2017-11-23] MEDS ORDERED: PHARMACY GLYCEMIC MGMT CONSULT PRN (01:27)
[2017-11-23] MEDS ORDERED: INSULIN ASPART 100 UNITS/ML 3 ML PEN SC STA (01:30)
[2017-11-23] MEDS ORDERED: GLUCAGON FOR INJ 1 MG VIAL SQ PRN (01:30)
[2017-11-23] MEDS ORDERED: GLUCOSE 40% GEL 15 GM TUBE PO PRN (01:30)
[2017-11-23] MEDS ORDERED: DEXTROSE 50% 50 ML SYR IV PRN (01:30)
[2017-11-23] MEDS ORDERED: GLUCOSE 10 TABS/TUBE PO PRN (01:30)
[2017-11-23] MEDS: LEVOTHYROXINE 25 MCG TAB PO SCH (05:47)
[2017-11-23 05:51] LABS: BASO % 0.2 %; BASO ABS # 0.02 K/uL (0-0.2); EOS % 1.2 %; EOS ABS # 0.11 K/uL (0-0.5); HEMATOCRIT 30.6 % (37-47); HEMOGLOBIN 10.1 g/dL (12.0-16.0); LYMPH % 28.7 %; MEAN CORPUSCULAR HEMOGLOBIN 32.7 pg (25-34); MEAN PLATELET VOLUME 9.9 fL (7.4-10.4); MONO % 7.3 %; MONO ABS # 0.69 K/uL (0.11-0.59); NEUT % 61.5 %; NEUT ABS # 5.78 K/uL (1.4-6.5); PLATELET COUNT 261 K/uL (130-400); RED CELL DISTRIBUTION WIDTH SD 49.9 fL (36.4-46.3)
[2017-11-23 06:05] LABS: INR 2.2 (0.9-1.1); PTT PATIENT 35.5 SECONDS (21.0-31.0)
[2017-11-23 06:34] LABS: ALBUMIN 2.7 gm/dl (3.4-5.0); CALCIUM 8.5 mg/dl (8.5-10.1); CREATININE 8.86 mg/dl (0.60-1.20); PHOSPHORUS 4.8 mg/dl (2.5-4.9); POTASSIUM 4.9 mmol/L (3.5-5.1); TOTAL PROTEIN 8.2 gm/dl (6.4-8.2)
[2017-11-23] MEDS: INSULIN ASPART 100 UNITS/ML 3 ML PEN SC SCH ×4 (07:00→21:29)
[2017-11-23] MEDS: PRAMIPEXOLE DIHYDROCHLORIDE 0.25MG TAB PO SCH (08:17)
[2017-11-23] MEDS: ATORVASTATIN 20 MG TAB PO SCH (08:17)
--- NOTE | 2017-11-23 09:56 | DIAGNOSTIC IMAGING REPORT ---
DUPLEX HEMODIALYSIS ACCESS CLINICAL HISTORY: RIGHT arm AV fistula evaluation stenosis TECHNIQUE: Doppler ultrasound COMPARISON STUDY: None FINDINGS: There is no arterial venous fistula within the right antecubital fossa. The fistula is patent. Moderate increase in velocities IMPRESSION: The right arm arteriovenous fistula is patent . Probable moderate stenosis The above report was generated using voice recognition software. It may contain grammatical, syntax or spelling errors. Electronically signed by: Greg Rawls M.D. 11/23/2017 9:55 AM Dictated Date/Time: 11/23/2017 9:53 AM
--- NOTE | 2017-11-23 11:17 | Nephrology Consultation ---
Nephrology Consultation Date & Providers Date of Consultation: Nov 23, 2017. Primary Care Provider: Marco Connolly M.D. Referring Provider: Reason for Consultation ESRD requiring HD History of Present Illness Ms. Ardon is a 57 year old white female who is seen at the request of Dr. Pizarro to provide inpatient HD and assist w/ medical management. Medical records in the EMR were reviewed and are summarized as follows: Ms. Ardon resides in [place], [place] and has been on IHD for ~ 1 year. She dialyzes TTS. Her ESRD is reportedly due to diabetic nephropathy. Ms. Ardon was noted to have poor blood flow from her AVF earlier this month. On 10/24 she underwent fistulagram by Dr. Meza. The venous limb of the AVF was noted to have a long segment of narrowing near the anastamosis and a small aneurysm. On 11/15 Ms. Ardon underwent venorrhaphy and creation of a new AVF anastamosis more proximally above the stenosis. Ms. Ardon indicates that they have not been able to use her AVF at the outpatient HD unit due to the short venous limb. She was transferred to [facility] late last evening for surgical evaluation and inpatient HD. Ms. Ardon's medical history is significant for BMI > 40, AODM, HTN, h/o CVA resulting L weakness & ataxic gait, fpc anticoagulation due to CVA, hypothyroidism, depression and h/o tobacco use. Past Medical/Surgical History Medical: # ESRD on HD TTS in [place], [place]. Patient is unable to provide the name of her [employer]isher # AODM # BMI > 40 # HTN # h/o CVA resulting L weakness/ataxic gait. On chronic anticoagulation # Hypothyroidism # Depression # Former smoker Surgical: # R upper arm AVF revision 11/15/17 - Dr. Meza Allergies Coded Allergies: Oxycodone (Verified Allergy, Intermediate, HIVES, 11/14/17) PER [employer] RECOR[employer] Sulfa Antibiotics (Verified Allergy, Intermediate, HIVES, 11/14/17) PER [employer] REC[employer] Cephalexin (Verified Allergy, Mild, HIVES, 11/14/17) Hydrochlorothiazide w/Triamterene (Verified Allergy, Unknown, UNKNOWN, ) Sulfonylureas (Verified Allergy, Unknown, UNKNOWN, 11/14/17) Uncoded Allergies: CARBONIC (Allergy, Unknown, UNKNOWN, 10/24/17) CRBONIC ANHYDRASE INHIBITORS Inpatient Medications Current Inpatient Medications Medications (Trade) Dose Ordered Sig/Kimmie Route Start Time Stop Time Status Last Admin Dose Admin Acetaminophen (Tylenol Tab) 650 mg Q4H PRN PO 11/22/17 23:30 12/22/17 23:29 Al Hydrox/Mg Hydrox/Simethicone (Maalox Max Susp) 15 ml Q4H PRN PO 11/22/17 23:30 12/22/17 23:29 Magnesium Hydroxide (Milk Of Magnesia Susp) 30 ml Q12H PRN PO 11/22/17 23:30 12/22/17 23:29 Ondansetron HCl (Zofran Inj) 4 mg Q6H PRN IV 11/22/17 23:30 12/22/17 23:29 Atorvastatin Calcium (Lipitor Tab) 40 mg DAILY PO 11/23/17 09:00 12/23/17 08:59 11/23/17 08:17 40 MG Levothyroxine Sodium (Synthroid Tab) 25 mcg DAILYBB PO 11/23/17 06:00 12/23/17 05:59 11/23/17 05:47 25 MCG Pramipexole Dihydrochloride (miraPEX TAB) 0.25 mg HS PO 11/23/17 21:00 12/23/17 20:59 11/23/17 08:17 0.25 MG Sertraline HCl (Zoloft Tab) 37.5 mg HS PO 11/23/17 21:00 12/23/17 20:59 Miscellaneous Information (Consult Glycemic Management Pharmacy) 1 ea DAILY PRN N/A 11/23/17 01:27 12/23/17 01:26 Insulin Aspart (novoLOG ASPART) SLIDING SCALE ACHS SC 11/23/17 07:00 12/23/17 06:59 Glucose (Glucose 40% Gel) 15-30 GRAMS 15 GRAMS... UD PRN PO 11/23/17 01:30 12/23/17 01:29 Glucose (Glucose Chew Tab) 4-8 Tablets 4 Tabl... UD PRN PO 11/23/17 01:30 12/23/17 01:29 Dextrose (Dextrose 50% 50ML Syringe) 25-50ML OF 50% DW IV FOR... UD PRN IV 11/23/17 01:30 12/23/17 01:29 Glucagon (Glucagon Inj) 1 mg UD PRN SQ 11/23/17 01:30 12/23/17 01:29 Epoetin Jean-Pierre (Procrit Inj) 10,000 units 1130 IV 11/23/17 11:30 11/23/17 11:31 Family History Mother and sister both w/ ESRD on IHD due to DM Social History Smoking Status: Former Smoker Alcohol Use: occasionally Drug Use: none . Lives in [place], [place]. 3 children in good health. College education. 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 Review of Systems Constitutional: No fever Respiratory: No cough, No shortness of breath Cardiovascular: No chest pain Abdomen: No pain, No nausea, No vomiting Integumentary: No rash A complete review of systems was performed. Pertinent positives are noted above. All other systems are negative. Physical Exam Date Time Temp Pulse Resp B/P (MAP) Pulse Ox O2 Delivery O2 Flow Rate FiO2 11/23/17 08:00 Room Air 11/23/17 07:09 36.7 80 20 145/68 (93) 96 Room Air 11/23/17 04:37 36.5 80 19 86/61 (69) 98 Room Air 11/23/17 04:00 99 Room Air 11/23/17 00:01 36.9 75 20 115/58 (77) 98 Room Air 11/22/17 23:59 99 Room Air 11/22/17 21:49 36.8 69 20 131/39 99 Room Air General Appearance: no apparent distress Head: normocephalic, atraumatic Eyes: PERRL Neck: no adenopathy Respiratory/Chest: lungs clear, no respiratory distress Cardiovascular: regular rate, rhythm Abdomen/GI: normal bowel sounds, non tender, soft Extremities/Musculoskelatal: no pedal edema, + pertinent finding (L upper arm ecchymotic from recent surgery. AVF + bruit. Venous limb palpable 1 cm proximal to anastamotic site.) Neurologic/Psych: alert, oriented x 3 Skin: warm/dry Laboratory Results Last 24 Hours Test 11/22/17 21:36 11/23/17 01:49 11/23/17 05:32 11/23/17 06:51 Bedside Glucose 273 mg/dl 163 mg/dl 115 mg/dl White Blood Count 9.40 K/uL Red Blood Count 3.09 M/uL Hemoglobin 10.1 g/dL Hematocrit 30.6 % Mean Corpuscular Volume 99.0 fL Mean Corpuscular Hemoglobin 32.7 pg Mean Corpuscular Hemoglobin Concent 33.0 g/dl Platelet Count 261 K/uL Mean Platelet Volume 9.9 fL Neutrophils (%) (Auto) 61.5 % Lymphocytes (%) (Auto) 28.7 % Monocytes (%) (Auto) 7.3 % Eosinophils (%) (Auto) 1.2 % Basophils (%) (Auto) 0.2 % Neutrophils # (Auto) 5.78 K/uL Lymphocytes # (Auto) 2.70 K/uL Monocytes # (Auto) 0.69 K/uL Eosinophils # (Auto) 0.11 K/uL Basophils # (Auto) 0.02 K/uL RDW Standard Deviation 49.9 fL RDW Coefficient of Variation 14.0 % Immature Granulocyte % (Auto) 1.1 % Immature Granulocyte # (Auto) 0.10 K/uL Prothrombin Time 22.3 SECONDS Prothromb Time International Ratio 2.2 Activated Partial Thromboplast Time 35.5 SECONDS Partial Thromboplastin Ratio 1.4 Sodium Level 132 mmol/L Potassium Level 4.9 mmol/L Chloride Level 96 mmol/L Carbon Dioxide Level 23 mmol/L Anion Gap 13.0 mmol/L Blood Urea Nitrogen 114 mg/dl Creatinine 8.86 mg/dl Est Creatinine Clear Calc Drug Dose 8.3 ml/min Estimated GFR () 5.1 Estimated GFR (Non- 4.4 BUN/Creatinine Ratio 13.0 Random Glucose 132 mg/dl Calcium Level 8.5 mg/dl Phosphorus Level 4.8 mg/dl Magnesium Level 2.6 mg/dl Total Bilirubin 0.3 mg/dl Aspartate Amino Transf (AST/SGOT) 15 U/L Alanine Aminotransferase (ALT/SGPT) 30 U/L Alkaline Phosphatase 111 U/L Total Protein 8.2 gm/dl Albumin 2.7 gm/dl Globulin 5.5 gm/dl Albumin/Globulin Ratio 0.5 Test 11/23/17 09:19 Impression (1) End-stage renal disease on hemodialysis (2) Azotemia (3) Dialysis AV fistula malfunction (4) Hyponatremia (5) Anemia Recommendations END STAGE RENAL DISEASE: -- LUE doppler report reviewed today. L arm AVF is patent -- Fistula was examined. Marked ecchymosis surrounding AVF. Venous limb of AVF can only be palpated 1 cm proximal to anastomotic site. Inpatient HD RN ( Luann Slaughter, RN) assessed AVF and did not feel that venous needle could be placed. Will ask Dr. Nieves from Critical Care Medicine to place IJ temporary dialysis catheter. Will provide heparin free HD today -- Will consult vascular surgery after the holiday to reassess AVF HYPERTENSION: -- Blood pressure is currently acceptable. Continue current management ANEMIA: -- Will provide SHANI w/ HD today
[2017-11-23] MEDS ORDERED: LORAZEPAM 2 MG/ML 1 ML VIAL ONE (11:18)
[2017-11-23] MEDS ORDERED: EPOETIN ALFA 10,000 UNITS/ML VIAL IV SCH (11:30)
--- NOTE | 2017-11-23 13:04 | Pharmacy Progress Note ---
Glycemic Control Intl Consult Date of Service Nov 23, 2017. Scope Glycemic Pharmacist consulted by Dr Huang on 11/23/17 for glycemic control and to write orders per [facility] inpatient glycemic control protocol Objective Weight (Kilograms): 112.700 Accuchecks BSG (last 24hrs): Test 11/22/17 21:36 11/23/17 01:49 11/23/17 05:32 11/23/17 06:51 Bedside Glucose 273 mg/dl (70-90) 163 mg/dl (70-90) 115 mg/dl (70-90) Random Glucose 132 mg/dl (70-99) Laboratory Data (last 24hrs) Test 11/23/17 05:32 Anion Gap 13.0 mmol/L BUN/Creatinine Ratio 13.0 Blood Urea Nitrogen 114 mg/dl Creatinine 8.86 mg/dl Potassium Level 4.9 mmol/L Sodium Level 132 mmol/L White Blood Count 9.40 K/uL Red Blood Count 3.09 M/uL Hemoglobin 10.1 g/dL Hematocrit 30.6 % Mean Corpuscular Volume 99.0 fL Mean Corpuscular Hemoglobin 32.7 pg Mean Corpuscular Hemoglobin Concent 33.0 g/dl Platelet Count 261 K/uL Mean Platelet Volume 9.9 fL Neutrophils (%) (Auto) 61.5 % Lymphocytes (%) (Auto) 28.7 % Monocytes (%) (Auto) 7.3 % Eosinophils (%) (Auto) 1.2 % Basophils (%) (Auto) 0.2 % Neutrophils # (Auto) 5.78 K/uL Lymphocytes # (Auto) 2.70 K/uL Monocytes # (Auto) 0.69 K/uL Eosinophils # (Auto) 0.11 K/uL Basophils # (Auto) 0.02 K/uL HbA1c Test 11/23/17 05:32 Recent Pertinent Medications Outpatient Anti-diabetic Regimen: * Lantus 42 units QAM * Humalog 7 units TIDM + 4 units HS Assessment & Plan ASSESSMENT: * 57 yo diabetic F admitted from [place] for fistula placement/evaluation * Spoke with pt and she does not know her outpatient diabetic regimen as she has someone draw up doses and give them to her at outside facility * A1c pending to evaluate outpatient glycemic control * Fasting BSG this AM 115 mg/dL and patient did not have appetite for breakfast * Will utilize wt based/stress 2 Novolog - decision on basal will be made this afternoon PLAN FOR INPATIENT GLYCEMIC CONTROL: * Basal insulin with LANTUS 35 units daily * small dose reduction as pt did not eat breakfast this AM - unsure of appetite ongoing * Correctional Insulin with NOVOLOG per scale ACHS or Q6hrs while NPO * Goal Range: Low 120 mg/dL - High 160 mg/dL * Correction Factor: 20 mg/dL/unit * Nutritional / Prandial insulin per carb ratio of 1 unit per 7 grams CHO consumed * Please note that the plan above was derived based on current level of insulin resistance and hospital stress. These recommendations are appropriate for inpatient admission only. Plan of care upon discharge will need to be reassessed to avoid potential outpatient hypo/hyperglycemia. Thank you.
--- NOTE | 2017-11-23 13:50 | Family Medicine Progress Note ---
Progress Note Date of Service Nov 23, 2017. Subjective Pt evaluation today including: conversation w/ patient, physical exam, chart review, lab review Pain: denies pain Voiding: no voiding problems 57-year-old female with a past medical history of type 2 diabetes, CKD stage IV on dialysis, CVA, hypothyroidism, recurrent UTI, atrial fibrillation, CAD, hypertension, hyperlipidemia, depression presented as a direct admit due to malfunctioning AV fistula. Currently symptomatically and denies any urinary symptoms, dizziness or lightheadedness Constitutional: No fever, No chills Eyes: No worsening of vision ENT: No hearing loss Respiratory: No cough, No sputum Cardiovascular: No chest pain Breast: No breast lump Abdomen: No pain, No nausea Musculoskeletal: No joint pain Female : No dysuria Neurologic: No memory loss Psychiatric: No depression symptoms Endo: No fatigue Medications Current Inpatient Medications Medications (Trade) Dose Ordered Sig/Kimmie Route Start Time Stop Time Status Last Admin Dose Admin Acetaminophen (Tylenol Tab) 650 mg Q4H PRN PO 11/22/17 23:30 12/22/17 23:29 Al Hydrox/Mg Hydrox/Simethicone (Maalox Max Susp) 15 ml Q4H PRN PO 11/22/17 23:30 12/22/17 23:29 Magnesium Hydroxide (Milk Of Magnesia Susp) 30 ml Q12H PRN PO 11/22/17 23:30 12/22/17 23:29 Ondansetron HCl (Zofran Inj) 4 mg Q6H PRN IV 11/22/17 23:30 12/22/17 23:29 Atorvastatin Calcium (Lipitor Tab) 40 mg DAILY PO 11/23/17 09:00 12/23/17 08:59 11/23/17 08:17 40 MG Levothyroxine Sodium (Synthroid Tab) 25 mcg DAILYBB PO 11/23/17 06:00 12/23/17 05:59 11/23/17 05:47 25 MCG Pramipexole Dihydrochloride (miraPEX TAB) 0.25 mg HS PO 11/23/17 21:00 12/23/17 20:59 11/23/17 08:17 0.25 MG Sertraline HCl (Zoloft Tab) 37.5 mg HS PO 11/23/17 21:00 12/23/17 20:59 Miscellaneous Information (Consult Glycemic Management Pharmacy) 1 ea DAILY PRN N/A 11/23/17 01:27 12/23/17 01:26 Insulin Aspart (novoLOG ASPART) SLIDING SCALE ACHS SC 11/23/17 07:00 12/23/17 06:59 Glucose (Glucose 40% Gel) 15-30 GRAMS 15 GRAMS... UD PRN PO 11/23/17 01:30 12/23/17 01:29 Glucose (Glucose Chew Tab) 4-8 Tablets 4 Tabl... UD PRN PO 11/23/17 01:30 12/23/17 01:29 Dextrose (Dextrose 50% 50ML Syringe) 25-50ML OF 50% DW IV FOR... UD PRN IV 11/23/17 01:30 12/23/17 01:29 Glucagon (Glucagon Inj) 1 mg UD PRN SQ 11/23/17 01:30 12/23/17 01:29 Objective Vital Signs Date Time Temp Pulse Resp B/P (MAP) Pulse Ox O2 Delivery O2 Flow Rate FiO2 11/23/17 08:00 Room Air 11/23/17 07:09 36.7 80 20 145/68 (93) 96 Room Air 11/23/17 04:37 36.5 80 19 86/61 (69) 98 Room Air 11/23/17 04:00 99 Room Air 11/23/17 00:01 36.9 75 20 115/58 (77) 98 Room Air 11/22/17 23:59 99 Room Air 11/22/17 21:49 36.8 69 20 131/39 99 Room Air Physical Exam General Appearance: WD/WN, no apparent distress Eyes: normal inspection ENT: hearing grossly normal Neck: supple Respiratory/Chest: chest non-tender, lungs clear Cardiovascular: regular rate, rhythm Abdomen: normal bowel sounds, non tender, soft Extremities: no pedal edema, no calf tenderness, + pertinent finding (L upper arm ecchymotic from recent surgery. AVF + bruit. Heart failur) Neurologic/Psychiatric: alert, normal mood/affect, oriented x 3 Laboratory Results 11/23/17 05:32 Red Blood Count 3.09, Mean Corpuscular Volume 99.0, Mean Corpuscular Hemoglobin 32.7, Mean Corpuscular Hemoglobin Concent 33.0, Mean Platelet Volume 9.9, Neutrophils (%) (Auto) 61.5, Lymphocytes (%) (Auto) 28.7, Monocytes (%) (Auto) 7.3, Eosinophils (%) (Auto) 1.2, Basophils (%) (Auto) 0.2, Neutrophils # (Auto) 5.78, Lymphocytes # (Auto) 2.70, Monocytes # (Auto) 0.69, Eosinophils # (Auto) 0.11, Basophils # (Auto) 0.02 11/23/17 05:32 Test 11/23/17 05:32 11/23/17 06:51 11/23/17 10:44 White Blood Count 9.40 K/uL (4.8-10.8) Red Blood Count 3.09 M/uL (4.2-5.4) Hemoglobin 10.1 g/dL (12.0-16.0) Hematocrit 30.6 % (37-47) Mean Corpuscular Volume 99.0 fL (80-100) Mean Corpuscular Hemoglobin 32.7 pg (25-34) Mean Corpuscular Hemoglobin Concent 33.0 g/dl (32-36) Platelet Count 261 K/uL (130-400) Mean Platelet Volume 9.9 fL (7.4-10.4) Neutrophils (%) (Auto) 61.5 % Lymphocytes (%) (Auto) 28.7 % Monocytes (%) (Auto) 7.3 % Eosinophils (%) (Auto) 1.2 % Basophils (%) (Auto) 0.2 % Neutrophils # (Auto) 5.78 K/uL (1.4-6.5) Lymphocytes # (Auto) 2.70 K/uL (1.2-3.4) Monocytes # (Auto) 0.69 K/uL (0.11-0.59) Eosinophils # (Auto) 0.11 K/uL (0-0.5) Basophils # (Auto) 0.02 K/uL (0-0.2) RDW Standard Deviation 49.9 fL (36.4-46.3) RDW Coefficient of Variation 14.0 % (11.5-14.5) Immature Granulocyte % (Auto) 1.1 % Immature Granulocyte # (Auto) 0.10 K/uL (0.00-0.02) Prothrombin Time 22.3 SECONDS (9.0-12.0) Prothromb Time International Ratio 2.2 (0.9-1.1) Activated Partial Thromboplast Time 35.5 SECONDS (21.0-31.0) Partial Thromboplastin Ratio 1.4 Anion Gap 13.0 mmol/L (3-11) Est Creatinine Clear Calc Drug Dose 8.3 ml/min Estimated GFR () 5.1 Estimated GFR (Non- 4.4 BUN/Creatinine Ratio 13.0 (10-20) Calcium Level 8.5 mg/dl (8.5-10.1) Phosphorus Level 4.8 mg/dl (2.5-4.9) Magnesium Level 2.6 mg/dl (1.8-2.4) Total Bilirubin 0.3 mg/dl (0.2-1) Aspartate Amino Transf (AST/SGOT) 15 U/L (15-37) Alanine Aminotransferase (ALT/SGPT) 30 U/L (12-78) Alkaline Phosphatase 111 U/L (45-117) Total Protein 8.2 gm/dl (6.4-8.2) Albumin 2.7 gm/dl (3.4-5.0) Globulin 5.5 gm/dl (2.5-4.0) Albumin/Globulin Ratio 0.5 (0.9-2) Bedside Glucose 115 mg/dl (70-90) Hepatitis B Surface Antigen NEG (NEG) Hepatitis B Surface Antibody NEG Date/Time Source Procedure Growth Status 11/23/17 00:30 Nasal MRSA DNA Surveillance Screen - Final Specimen Positive for MRSA by DNA Probe Complete Assessment and Plan 57 yo F w/ T2DM , CVA ,Hypothyroidism, recurrent uti, CKD stage iv on dialysis , obesity, Afib (on Coumadin), CAD, HTN, HLD, Depression presenting w/ malfunctioning AV fistula while attempting to receive scheduled Dialysis treatment End-stage renal disease/AV malfunction - Monitor electrolytes -Nephrology consult-appreciate input - LUE doppler- L arm AVF is patent. - Temporary IJ to be placed by academic dean for temporary HD - Consult vascular surgery Atrial fibrillation - Rate controlled - Metoprolol and Coumadin currently held Hypothyroidism -Continue Synthroid T2DM -Insulin sliding scale - Glycemic consult Depression - Continue Zoloft CAD/hyperlipidemia/TN -Continue statin DVT Prophaylxis -SCD's -Coumadin held prior to procedure Full code Disposition: Telemetry, to be reassessed by vascular surgery I agree with resident assessment and plan and have seen and examined pt myself Resting comfortably in bed VSS Labs reviewed Worsening renal fxn Nephrology consulted Will need further access Combination Saw Operator consulted for IJ for dialysis at this time Resident Tracking Resident Involvement: Resident Care Provided Care Provided: Adult Hospital Medicine
--- NOTE | 2017-11-23 14:27 | Procedure Note ---
Procedure Note Procedure Date Nov 23, 2017. Procedure Description Procedure Name: Dialysis Catheter/RT Femoral Central Line Consent obtained: written Time of procedure: 14:00 Performed by: attending Indications: other (For dialysis.) Prep: betadine prep, chlorhexadine prep, sterile drape, sterile procedures used Anesthesia: local injection, lidocaine 1% without epi Central line lumen: Dialysis catheter/Tripple lumen. Central line location: femoral (R) Additional details: percutaneous placement, line sutured, good blood return CXR: appropriate position, other (RT Femoral catheter) Complications: none Patient tolerated procedure: well Post-procedure vital signs: reviewed and stable
[2017-11-23] MEDS ORDERED: INSULIN GLARGINE SOLOSTAR 100 UNITS/ML 3 ML PEN SC ONE (14:30)
[2017-11-23] MEDS ORDERED: LORAZEPAM 2 MG/ML 1 ML VIAL IV ONE (15:15)
--- NOTE | 2017-11-23 15:34 | DIAGNOSTIC IMAGING REPORT ---
CHEST ONE VIEW PORTABLE CLINICAL HISTORY: attempt to put rt central catheter/ij COMPARISON STUDY: No previous studies for comparison. FINDINGS: Right subclavian stent. No evidence for cardiac enlargement. No evidence pneumothorax. Nonspecific slight interstitial prominence throughout both hemithoraces. IMPRESSION: No evidence pneumothorax. The above report was generated using voice recognition software. It may contain grammatical, syntax or spelling errors. Electronically signed by: Greg Rawls M.D. 11/23/2017 3:32 PM Dictated Date/Time: 11/23/2017 3:32 PM
--- NOTE | 2017-11-23 16:12 | CRITICAL CARE CONSULTATION ---
DATE OF CONSULTATION: 11/23/2017 CONSULTATION REQUESTED BY: Shakeel Pizarro DO REASON FOR CONSULTATION: Dialysis catheter placement. HISTORY OF PRESENT ILLNESS: A 57-year-old female with chronic kidney disease, stage IV, currently is on dialysis and also previous history of hypothyroidism, recurrent UTI, obesity, and atrial fibrillation. She has been on Coumadin and hypertension. She was transferred from [facility] for dialysis catheter placement and for dialysis. The patient recently had an AV fistula, which is malfunctioning. The patient currently is on Coumadin and INR is 2.2. She denies having any distress. Overall, she seems to be doing better except she needs dialysis. REVIEW OF SYSTEMS: As mentioned above. Otherwise, 12-point review of systems is negative for any abnormalities. PAST MEDICAL HISTORY: Significant for CVA; hypothyroidism; recurrent UTI; chronic kidney disease, stage IV, on dialysis; obesity; atrial fibrillation; coronary artery disease; hypertension; and depression. PAST SURGICAL HISTORY: Cholecystectomy, cataract removal, , tubal ligation, bladder tuck and also AV fistula. FAMILY HISTORY: Diabetes, heart disease, and asthma. SOCIAL HISTORY: Former smoker. Alcohol use occasionally. Drug use, none. ALLERGIES: As mentioned in the chart. HOME MEDICATIONS: As mentioned in the chart. PHYSICAL EXAMINATION: GENERAL: Middle-aged female, morbidly obese, resting comfortably, not in any acute distress. VITAL SIGNS: Her temperature was 36.9, heart rate 75, respiratory rate 20, blood pressure 115/58, and pulse ox is 98%-100% on room air. HEENT: Pupils are reactive to light. There is no cervical or supraclavicular adenopathy. No jugular venous distention. NECK: Supple. No adenopathy. Trachea midline. CHEST: Bilateral air entry with clear lungs. No wheezing and no crackles heard. HEART: S1 and S2 heard. Regular rate and rhythm. ABDOMEN: Morbidly obese, soft, and nontender. Bowel sounds are positive. EXTREMITIES: No clubbing, no edema, and nontender calf muscles. NEUROLOGIC: Limited study, which is grossly nonfocal. LABORATORY DATA: Her WBC is 9.40, H&H 10.1/30.6 and platelets are 261. Differential count is normal. PT/INR was 2.2 and PTT 35.4. Chemistry: Sodium 132, potassium 4.9, chloride 96, CO2 of 23, anion gap was 13, BUN was 114, creatinine was 8.86 and glucose was 115, calcium 8.5, phosphorus 4.8, and magnesium 2.6. Total bilirubin 0.3. AST 15, ALT 30, and alkaline phosphatase 111. Total protein 8.2 and albumin 2.7. IMPRESSION AND PLAN: Middle-aged female, 57 years old female, who was brought into the hospital for dialysis catheter placement. 1. End-stage renal disease, chronically on dialysis. 2. Atrial fibrillation. 3. Hypothyroidism. 4. Type 2 diabetes mellitus. 5. History of coronary artery disease. 6. Hypertension. The patient was evaluated. We have put the dialysis catheter into the right inguinal area. There were no complications noted. She will be continued on current plan of care as prescribed by the hospitalist/primary care physician. I have also discussed with the nurse educator. Overall, she seems to be doing better on current plan of care. Thank you very much for allowing me to participate in the care of your patient. If you got any further questions, please do not hesitate to contact me and I will follow this case with you.
[2017-11-23] MEDS: ACETAMINOPHEN 325 MG TAB PO PRN (20:47)
[2017-11-23] MEDS: SERTRALINE HCL 50 MG TAB PO SCH (20:47)
[2017-11-24] VITALS (8 sets, daily range): BP systolic 102–129; BP diastolic 38–87; PULSE 79–98; TEMP 36.4–37.3; O2SAT 91–98
[2017-11-24] MEDS: LEVOTHYROXINE 25 MCG TAB PO SCH (05:19)
[2017-11-24 06:34] LABS: HEMATOCRIT 30.7 % (37-47); HEMOGLOBIN 9.8 g/dL (12.0-16.0); MEAN CORPUSCULAR HEMOGLOBIN 32.2 pg (25-34); MEAN CORPUSCULAR HGB CONC 31.9 g/dl (32-36); MEAN PLATELET VOLUME 10.3 fL (7.4-10.4); PLATELET COUNT 254 K/uL (130-400); RED CELL DISTRIBUTION WIDTH CV 14.2 % (11.5-14.5); RED CELL DISTRIBUTION WIDTH SD 51.4 fL (36.4-46.3); WHITE BLOOD COUNT 8.85 K/uL (4.8-10.8)
[2017-11-24 07:24] LABS: CALCIUM 8.4 mg/dl (8.5-10.1); CREATININE 5.66 mg/dl (0.60-1.20); POTASSIUM 4.7 mmol/L (3.5-5.1)
[2017-11-24 07:53] LABS: HEMOGLOBIN A1C 7.3 % (4.5-5.6)
[2017-11-24] MEDS: ATORVASTATIN 20 MG TAB PO SCH (08:16)
[2017-11-24] MEDS: INSULIN ASPART 100 UNITS/ML 3 ML PEN SC SCH ×4 (08:21→21:41)
[2017-11-24] MEDS: INSULIN GLARGINE SOLOSTAR 100 UNITS/ML 3 ML PEN SC SCH (08:21)
[2017-11-24] MEDS ORDERED: INSULIN GLARGINE SOLOSTAR 100 UNITS/ML 3 ML PEN SC SCH (09:00)
--- NOTE | 2017-11-24 09:20 | Nephrology Progress Note ---
Nephrology Progress Note Date of Service Nov 24, 2017. Chief Complaint ESRD requiring HD Subjective Ms. Ardon was seen & examined in the PCU this morning. She underwent R femoral temporary dialysis catheter insertion by Dr. Toro yesterday. She was dialyzed for 3.8 hours w/ 900 cc UF. Dialysis catheter was positional and therefore run reversed. No other complications. Patient voices no new medical concerns this am. Review of Systems Constitutional: No fever Cardiovascular: No chest pain Respiratory: No dyspnea at rest Abdomen: No pain, No nausea, No vomiting Extremities: No leg edema A complete review of systems was performed. Pertinent positives are noted above. All other systems are negative. Vital Signs Last 8 Hrs Date Time Temp Pulse Resp B/P (MAP) Pulse Ox O2 Delivery O2 Flow Rate FiO2 11/24/17 07:30 36.4 91 20 102/68 (79) 96 Room Air 11/24/17 04:26 36.5 98 16 127/38 (67) 98 Room Air 11/24/17 04:00 96 Room Air Last Recorded Weight Weight (Kilograms): 109.700 Physical Exam General Appearance: no apparent distress Head: normocephalic, atraumatic Eyes: PERRL, EOMI Neck: no adenopathy Respiratory/Chest: lungs clear, no respiratory distress Cardiovascular: regular rate, rhythm Abdomen/GI: normal bowel sounds, non tender, soft Extremities/Musculoskelatal: no pedal edema, + pertinent finding (R femoral HD catheter site w/ clean dry dressing. No active bleeding. Strong DP pulse R foot. R foot is warm and pink.) Neurologic/Psych: alert, oriented x 3 Family History Mother and sister both w/ ESRD on IHD due to DM Social History Smokeless Tobacco Use: No Alcohol Use: none Drug Use: none Occupation: disabled . Lives in [place], [place]. 3 children in good health. College education. 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 Laboratory Results Past 24 Hours 11/24/17 05:43 11/24/17 05:43 Test 11/23/17 10:44 11/23/17 14:10 11/23/17 21:11 11/24/17 05:43 Hepatitis B Surface Antigen NEG (NEG) Hepatitis B Surface Antibody NEG Bedside Glucose 189 mg/dl (70-90) 147 mg/dl (70-90) Red Blood Count 3.04 M/uL (4.2-5.4) Mean Corpuscular Volume 101.0 fL (80-100) Mean Corpuscular Hemoglobin 32.2 pg (25-34) Mean Corpuscular Hemoglobin Concent 31.9 g/dl (32-36) RDW Standard Deviation 51.4 fL (36.4-46.3) RDW Coefficient of Variation 14.2 % (11.5-14.5) Mean Platelet Volume 10.3 fL (7.4-10.4) Anion Gap 10.0 mmol/L (3-11) Est Creatinine Clear Calc Drug Dose 12.7 ml/min Estimated GFR () 8.8 Estimated GFR (Non- 7.6 BUN/Creatinine Ratio 9.5 (10-20) Calcium Level 8.4 mg/dl (8.5-10.1) Test 11/24/17 06:27 Bedside Glucose 143 mg/dl (70-90) Allergies Coded Allergies: Oxycodone (Verified Allergy, Intermediate, HIVES, 11/14/17) PER [employer] Sulfa Antibiotics (Verified Allergy, Intermediate, HIVES, 11/14/17) PER [employer] Cephalexin (Verified Allergy, Mild, HIVES, 11/14/17) Hydrochlorothiazide w/Triamterene (Verified Allergy, Unknown, UNKNOWN, ) Sulfonylureas (Verified Allergy, Unknown, UNKNOWN, 11/14/17) Uncoded Allergies: CARBONIC (Allergy, Unknown, UNKNOWN, 10/24/17) CRBONIC ANHYDRASE INHIBITORS Medications Current Inpatient Medications Medications (Trade) Dose Ordered Sig/Kimmie Route Start Time Stop Time Status Last Admin Dose Admin Acetaminophen (Tylenol Tab) 650 mg Q4H PRN PO 11/22/17 23:30 12/22/17 23:29 11/23/17 20:47 650 MG Al Hydrox/Mg Hydrox/Simethicone (Maalox Max Susp) 15 ml Q4H PRN PO 11/22/17 23:30 12/22/17 23:29 Magnesium Hydroxide (Milk Of Magnesia Susp) 30 ml Q12H PRN PO 11/22/17 23:30 12/22/17 23:29 Ondansetron HCl (Zofran Inj) 4 mg Q6H PRN IV 11/22/17 23:30 12/22/17 23:29 Atorvastatin Calcium (Lipitor Tab) 40 mg DAILY PO 11/23/17 09:00 12/23/17 08:59 11/24/17 08:16 40 MG Levothyroxine Sodium (Synthroid Tab) 25 mcg DAILYBB PO 11/23/17 06:00 12/23/17 05:59 11/24/17 05:19 25 MCG Pramipexole Dihydrochloride (miraPEX TAB) 0.25 mg HS PO 11/23/17 21:00 12/23/17 20:59 11/23/17 08:17 0.25 MG Sertraline HCl (Zoloft Tab) 37.5 mg HS PO 11/23/17 21:00 12/23/17 20:59 11/23/17 20:47 37.5 MG Miscellaneous Information (Consult Glycemic Management Pharmacy) 1 ea DAILY PRN N/A 11/23/17 01:27 12/23/17 01:26 Insulin Aspart (novoLOG ASPART) SLIDING SCALE ACHS SC 11/23/17 07:00 12/23/17 06:59 11/24/17 08:21 8 UNITS Glucose (Glucose 40% Gel) 15-30 GRAMS 15 GRAMS... UD PRN PO 11/23/17 01:30 12/23/17 01:29 Glucose (Glucose Chew Tab) 4-8 Tablets 4 Tabl... UD PRN PO 11/23/17 01:30 12/23/17 01:29 Dextrose (Dextrose 50% 50ML Syringe) 25-50ML OF 50% DW IV FOR... UD PRN IV 11/23/17 01:30 12/23/17 01:29 Glucagon (Glucagon Inj) 1 mg UD PRN SQ 11/23/17 01:30 12/23/17 01:29 Insulin Glargine (Lantus Solostar Pen) 39 units DAILY SC 11/24/17 09:00 12/24/17 08:59 11/24/17 08:21 39 UNITS Impression (1) End-stage renal disease on hemodialysis (2) Azotemia (3) Dialysis AV fistula malfunction (4) Hyponatremia (5) Anemia ESRD on HD TTS in [place], [place] (dialyzes at hospital unit w/ Dr. Jabier Real ). AVF could not be used at outpatient dialysis unit due to short venous segment PMH - AODM, BMI > 40, HTN, h/o CVA resulting L weakness/ataxic gait (on chronic anticoagulation), hypothyroidism, depression, former smoker Recommendations END STAGE RENAL DISEASE: -- Volume status & electrolyte balance are acceptable at this time. No acute indication for HD today. -- LUE doppler report 11/23 reviewed: L arm AVF is patent -- AVF w/ short venous limb. Could not be used for HD yesterday. -- Will consult vascular surgery for IJ THC insertion, removal of femoral dialysis catheter and assess R arm AVF for transposition or conversion to AVG HYPERTENSION: -- Blood pressure is currently acceptable. Continue current management ANEMIA: -- Will provide SHANI w/ HD today
--- NOTE | 2017-11-24 12:36 | Progress Note ---
Subjective Date of Service: Nov 24, 2017. Subjective Pt evaluation today including: conversation w/ patient, physical exam, chart review, lab review, review of studies, review of inpatient medication list Resting comfortably in bed Tolerated dialysis yesterday Incontinent of urine this AM No complaints at this time Review of Systems Constitutional: No fever, No chills, No sweats, No weight loss, No weakness Eyes: No worsening of vision, No eye pain, No redness, No discharge Respiratory: No cough, No sputum, No wheezing, No shortness of breath Cardiac: No chest pain, No orthopnea, No PND, No edema Abdomen: No pain, No nausea, No vomiting, No diarrhea, No constipation Musculoskeletal: No joint pain, No muscle pain, No swelling, No calf pain Female : No dysuria, No urinary frequency, No hematuria, No incontinence Neurologic: No memory loss, No paralysis, No weakness, No numbness/tingling Psychiatric: No depression symptoms, No anhedonism, No anxiety, No insomnia Skin: No rash, No itch Objective Vital Signs Date Time Temp Pulse Resp B/P (MAP) Pulse Ox O2 Delivery O2 Flow Rate FiO2 11/24/17 10:58 37.3 79 20 129/58 (81) 98 Room Air 11/24/17 08:00 Room Air 11/24/17 07:30 36.4 91 20 102/68 (79) 96 Room Air 11/24/17 04:26 36.5 98 16 127/38 (67) 98 Room Air 11/24/17 04:00 96 Room Air 11/24/17 00:50 37.0 89 19 124/70 (88) 91 11/23/17 23:59 96 Room Air 11/23/17 21:14 37.1 99 19 149/78 (101) 96 Room Air 11/23/17 20:33 36.6 96 137/74 (95) 11/23/17 20:00 96 Room Air 11/23/17 19:30 96 141/81 11/23/17 19:15 95 121/73 11/23/17 19:00 94 111/75 11/23/17 18:45 94 98/54 11/23/17 18:30 92 84/49 11/23/17 18:15 88 124/65 11/23/17 18:00 85 98/67 11/23/17 17:45 90 92/59 11/23/17 17:30 93 89/67 11/23/17 17:15 95 107/53 11/23/17 17:00 90 102/67 11/23/17 16:45 90 102/61 11/23/17 16:30 92 94/45 11/23/17 16:15 93 101/58 11/23/17 16:00 Room Air 11/23/17 16:00 85 98/61 11/23/17 15:46 86 21 116/73 (87) 11/23/17 15:45 37.0 87 116/73 (87) 11/23/17 14:15 Room Air Physical Exam General Appearance: WD/WN, no apparent distress Eyes: normal inspection, PERRL, EOMI, sclerae normal Neck: supple, no adenopathy, thyroid normal, no JVD Respiratory/Chest: chest non-tender, lungs clear, normal breath sounds, no respiratory distress Cardiovascular: regular rate, rhythm, no edema, no gallop, no JVD Abdomen: normal bowel sounds, non tender, soft, no organomegaly Neurologic/Psychiatric: no motor/sensory deficits, alert, normal mood/affect, oriented x 3 Laboratory Results Last 24 Hours Test 11/23/17 14:10 11/23/17 21:11 11/24/17 05:43 11/24/17 06:27 Bedside Glucose 189 mg/dl 147 mg/dl 143 mg/dl White Blood Count 8.85 K/uL Red Blood Count 3.04 M/uL Hemoglobin 9.8 g/dL Hematocrit 30.7 % Mean Corpuscular Volume 101.0 fL Mean Corpuscular Hemoglobin 32.2 pg Mean Corpuscular Hemoglobin Concent 31.9 g/dl RDW Standard Deviation 51.4 fL RDW Coefficient of Variation 14.2 % Platelet Count 254 K/uL Mean Platelet Volume 10.3 fL Sodium Level 138 mmol/L Potassium Level 4.7 mmol/L Chloride Level 106 mmol/L Carbon Dioxide Level 22 mmol/L Anion Gap 10.0 mmol/L Blood Urea Nitrogen 54 mg/dl Creatinine 5.66 mg/dl Est Creatinine Clear Calc Drug Dose 12.7 ml/min Estimated GFR () 8.8 Estimated GFR (Non- 7.6 BUN/Creatinine Ratio 9.5 Random Glucose 144 mg/dl Calcium Level 8.4 mg/dl Test 11/24/17 11:39 Bedside Glucose 163 mg/dl Assessment and Plan 57 yo F w/ T2DM, CVA ,hypothyroidism, recurrent UTI, CKD stage iv on dialysis , obesity, Afib (on Coumadin), CAD, HTN, HLD, Depression presenting w/ malfunctioning AV fistula while attempting to receive scheduled Dialysis treatment End-stage renal disease/AV malfunction - Nephrology consulted, urgent dialysis needed as creatinine 8 upon admission - LUE doppler - L arm AVF is patent, vascular surg consulted for fistula eval - Fem cath placed temp for dialysis Atrial fibrillation - Rate controlled - Metoprolol and Coumadin currently held Hypothyroidism -Continue Synthroid T2DM - Insulin sliding scale - Glycemic consult Depression - Continue Zoloft CAD/hyperlipidemia/TN - Continue statin DVT Prophaylxis - SCD's - Coumadin held as may need vascular procedure Full code
[2017-11-24 13:21] LABS: INR 1.4 (0.9-1.1)
[2017-11-24] MEDS: PRAMIPEXOLE DIHYDROCHLORIDE 0.25MG TAB PO SCH (21:37)
[2017-11-24] MEDS: SERTRALINE HCL 50 MG TAB PO SCH (21:37)
[2017-11-25] VITALS (21 sets, daily range): BP systolic 91–153; BP diastolic 59–97; PULSE 60–93; TEMP 36.5–37; O2SAT 95–97
[2017-11-25] MEDS: ACETAMINOPHEN 325 MG TAB PO PRN ×2 (00:57→21:06)
[2017-11-25] MEDS ORDERED: TRAMADOL HCL 50 MG TAB PO STA (03:56)
[2017-11-25] MEDS ORDERED: TRAMADOL HCL 50 MG TAB ONE (04:15)
[2017-11-25] MEDS: LEVOTHYROXINE 25 MCG TAB PO SCH (04:18)
[2017-11-25 06:36] LABS: MEAN CORPUSCULAR HEMOGLOBIN 32.6 pg (25-34); MEAN CORPUSCULAR HGB CONC 32.3 g/dl (32-36); MEAN PLATELET VOLUME 9.8 fL (7.4-10.4); NUCLEATED RED BLOOD CELL ABS 0.03 K/uL (0-0); PLATELET COUNT 237 K/uL (130-400); RED CELL DISTRIBUTION WIDTH CV 14.2 % (11.5-14.5); RED CELL DISTRIBUTION WIDTH SD 50.9 fL (36.4-46.3)
[2017-11-25] MEDS: INSULIN ASPART 100 UNITS/ML 3 ML PEN SC SCH ×4 (07:00→20:44)
[2017-11-25 07:21] LABS: CALCIUM 8.6 mg/dl (8.5-10.1); CREATININE 7.54 mg/dl (0.60-1.20); POTASSIUM 4.5 mmol/L (3.5-5.1)
[2017-11-25] MEDS: ATORVASTATIN 20 MG TAB PO SCH (09:00)
--- NOTE | 2017-11-25 09:21 | Medical Consult ---
Consultation Note Date of Service Nov 25, 2017. Consultation Note Chief Complaint Malfunctioning right arm fistula History of Present Illness The patient is a 57 year old female who has a right upper arm fistula which is not running well. She is in need of a permcath for dialysis Allergies Coded Allergies: Oxycodone (Verified Allergy, Intermediate, HIVES, 10/24/17) PER [facility] REC[employer]DS Sulfa Antibiotics (Verified Allergy, Intermediate, HIVES, 10/24/17) PER [employer] RECOR[employer] Hydrochlorothiazide w/Triamterene (Verified Allergy, Unknown, UNKNOWN, 10/24/17) Sulfonylureas (Verified Allergy, Unknown, UNKNOWN, 10/24/17) Uncoded Allergies: CARBONIC (Allergy, Unknown, UNKNOWN, 10/24/17) CRBONIC ANHYDRASE INHIBITORS Home Medications Scheduled Atorvastatin (Lipitor), 40 MG PO DAILY Bumetanide (Bumex), 1 TAB PO DAILY Calcium Carbonate (Tums), 1 TAB PO DAILY Cholecalciferol (Vitamin D3), 1 TAB PO DAILY Docusate Sodium (Docusate Sodium), 1 CAP PO BID Insulin Glargine (Lantus), 42 SC QAM Levothyroxine Sodium (Levothyroxine Sodium), 1 TAB PO DAILY Levothyroxine Sodium (Levothyroxine Sodium), 1 TAB PO DAILY Lidocaine-Prilocaine (Lidocaine/Prilocaine), 1 APPLN TOP 3XWK Melatonin (Melatonin), 2 TABS PO QPM Metoprolol Tartrate (Lopressor), 1 TAB PO BID Polyethylene Glycol 3350 (Miralax), 17 GM PO DAILY Pramipexole (Mirapex), 0.25 MG PO HS Senna (Senokot), 2 TAB PO HS Sertraline Hcl (Zoloft), 37.5 MG PO HS Warfarin Sod (Jantoven), 3 MG PO DAILY [Humalog], 4 UNITS SQ HS Scheduled PRN Acetaminophen (Tylenol), 2 TAB PO Q6 PRN for Pain Acetaminophen Tab (Tylenol), 650 MG PO Q4 PRN for Pain Bisacodyl (Bisacodyl), 1 TAB PO UD PRN for Constipation [Bisacodyl Supp], 1 SUPP RE DAILY PRN for Constipation Surgical / Medical History Hx Abdominal Surgery: Yes (3 c-sections) Past Medical/Surgical History: Depression, Diabetes, Kidney Disease, Thyroid Disease Social History Smoking Status: Former Smoker Hx Tobacco Use In Past Year?: No Hx Alcohol Use - Type & Amnt: No Hx Substance Use -Type & Amnt: No ROS: Vascular H&P v2 Review of Systems Constitutional: No chills, No diaphoresis, No fever, No malaise, No weakness, No weight gain, No weight loss, No sweats, No fatigue, No problem reported Respiratory: No cough, No cyanosis, No RAMIREZ, No hemoptysis, No orthopnea, No PND , No short of breath, No sputum production, No stridor, No wheezing, No dyspnea , No problem reported Cardiovascular: No chest pain, No chest tightness, No chest pressure, No palpitations, No syncope, No diaphoresis, No edema, No intermittent claudication , No orthopnea, No cyanosis, No mumur, No lightheadedness, No paroxysmal nocturnal dyspnea, No problem reported Gastrointestinal: No abdominal pain, No constipation, No diarrhea, No nausea, No vomiting, No anorexia, No appetite changes, No belching, No flatulence, No food intolerance, No hematemesis, No hemorrhoids, No hematochezia, No stool changes, No heartburn, No indigestion, No dysphagia, No rectal bleeding, No problem reported Musculoskeletal: No back pain, No gout, No joint pain, No joint swelling, No muscle pain, No muscle stiffness, No muscle weakness, No neck pain, No problem reported Neurologic: No dizziness, No weakness, No headache, No lethargy, No numbness, No paresthesia, No pre-existing deficit, No seizures, No tics, No tingling, No tremors, No vertigo, No memory loss, No LOC, No problem reported Psychiatric: + depression Physical Ex: Vascular H&P v2 Physical Exam Constitutional: General Apperance: overweight Level of Distress: NAD Ambulation: ambulating normally Psychiatric: Mental Status: active & alert, normal mood, normal affect Orientation: oriented except where noted, to time, to place, to person Memory: recent memory normal, remote memory normal Head: normocephalic Lungs: Auscultation: breath sounds normal Cardiovascular: Heart Auscultation: RRR Peripheral Pulses: Radial Pulse: normal on the left, normal on the right Femoral Pulse: normal on the left, normal on the right Abdomen: Inspection & Palpation: soft Musculoskeletal: normal Extremities: Upper Right: no cyanosis, no edema, no varicosities, no palpable cord, no clubbing, no ulcers, no mottling Upper Left: no cyanosis, no edema, no varicosities, no palpable cord, no clubbing, no ulcers, no mottling Lower Right: no cyanosis, no edema, no varicosities, no palpable cord, no clubbing, no ulcers, no mottling, pertinent finding (thrill in antecubital fossa ) Lower Left: no cyanosis, no edema, no varicosities, no palpable cord, no clubbing, no ulcers, no mottling Neurologic: Cranial Nerves: grossly intact Sensation: grossly intact A&P: Vascular H&P v2 Assessment and Plan Imp: Malfunctioning right arm fistula Plan: Patient for insertion of permcath. I have discussed the risks options and benefits of the procedure with the patient. The patient understands the risks options and benefits and agrees to the procedure.
--- NOTE | 2017-11-25 09:36 | Pharmacy Progress Note ---
Glycemic Control Progress Note Date of Service Nov 25, 2017. Scope Glycemic Pharmacist consulted for glycemic control to write orders per [facility] inpatient glycemic control protocol. Objective Accuchecks BSG (last 24hrs): Test 11/24/17 11:39 11/24/17 16:16 11/24/17 20:20 11/25/17 06:18 Bedside Glucose 163 mg/dl (70-90) 117 mg/dl (70-90) 142 mg/dl (70-90) Random Glucose 106 mg/dl (70-99) Test 11/25/17 06:47 Bedside Glucose 91 mg/dl (70-90) HbA1c: Test 11/23/17 05:32 Hemoglobin A1c 7.3 % (4.5-5.6) H Recent Pertinent Medications The patient is currently receiving: * Basal insulin: Lantus 39 units every 24 hours - dosed in the AM * Correctional Insulin: Novolog Correction per scale ACHS Goal Range: Low 110 mg/dL - High 140 mg/dL Correction Factor: 20 mg/dL/unit * Prandial insulin: Per carb ratio of 1 unit per 7 grams CHO consumed Outpatient Anti-Diabetic Meds The following doses were reported on the patient's Med Rec, she was a transfer from [facility]: Lantus 42 units SQ Q AM Humalog 7 units TID w/ meals and 4 units Q HS Assessment & Plan ASSESSMENT: 11/25/17 * BSGs have been well controlled over the last 24 hrs * She has received 57 units of SQ insulin over the last 24 hrs and tolerating a diet (ate 2 of 3 meals yesterday) * Fasting BSG 91-106 this AM w/ 39 units of basal insulin on board. This is at goal for FBS, however will need to watch from further decrease in fasting numbers w/ repeat dosing. * Current CF and CR performing well. * Uncertain if patient is to receive HD today, no HD orders yet entered PLAN FOR INPATIENT GLYCEMIC CONTROL: * Continuing Lantus 39 units SQ Q AM for now, reevaluate tomorrow * Continuing correction factor of 20 mg/dl/unit * Continuing carb ratio of 1 unit per 7 grams CHO consumed * Continuing goal range of Low 110 mg/dL - High 140 mg/dL * Please note that the plan above was derived based on current level of insulin resistance and hospital stress. These recommendations are appropriate for inpatient admission only. Plan of care upon discharge will need to be reassessed to avoid potential outpatient hypo/hyperglycemia. Thank you.
[2017-11-25] MEDS ORDERED: CLINDAMYCIN 600 MG/54 ML D5W IV ONE (09:40)
[2017-11-25] MEDS ORDERED: HEPARIN SOD (PORCINE) 5000 UNIT/ML 1 ML VIAL ONE (09:47)
[2017-11-25] MEDS ORDERED: MIDAZOLAM HCL 1 MG/ML 2ML VIAL ONE (09:48)
[2017-11-25] MEDS ORDERED: FENTANYL CITRATE INJ 50 MCG/1 ML 2 ML VIAL ONE (09:48)
--- NOTE | 2017-11-25 09:48 | Nephrology Progress Note ---
Nephrology Progress Note Date of Service Nov 25, 2017. Chief Complaint ESRD Subjective No acute events overnight. Kortney reports some discomfort associated with the femoral dialysis catheter. She denies shortness of breath. Kortney denies chest pain or palpitations. She hopes that she can be discharged home today. Review of Systems A complete review of systems was performed. Pertinent positives are noted above. All other systems are negative. Vital Signs Last 8 Hrs Date Time Temp Pulse Resp B/P (MAP) Pulse Ox O2 Delivery O2 Flow Rate FiO2 11/25/17 08:23 36.5 83 17 122/61 (81) 97 Room Air 11/25/17 08:00 Room Air 11/25/17 04:20 96 2.0 11/25/17 04:15 36.5 81 22 111/76 (88) 95 Nasal Cannula 2.0 Last Recorded Weight Weight (Kilograms): 115.400 Physical Exam General Appearance: no apparent distress, + obese Head: normocephalic, atraumatic Eyes: normal inspection, sclerae normal ENT: normal ENT inspection, pharynx normal Neck: supple, no JVD Respiratory/Chest: lungs clear, no respiratory distress, no accessory muscle use Cardiovascular: regular rate, rhythm, no murmur Abdomen/GI: non tender, soft Extremities/Musculoskelatal: normal inspection, + pertinent finding (Femoral HD catheter; AVF with thrill and bruit) Neurologic/Psych: alert, normal mood/affect Family History Mother and sister both w/ ESRD on IHD due to DM Social History Smokeless Tobacco Use: No Alcohol Use: none Drug Use: none Occupation: disabled . Lives in [place], [place]. 3 children in good health. College education. 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 Laboratory Results Past 24 Hours 11/25/17 06:18 11/25/17 06:18 Test 11/24/17 11:39 11/24/17 12:46 11/24/17 16:16 11/24/17 20:20 Bedside Glucose 163 mg/dl (70-90) 117 mg/dl (70-90) 142 mg/dl (70-90) Prothrombin Time 14.7 SECONDS (9.0-12.0) Prothromb Time International Ratio 1.4 (0.9-1.1) Test 11/25/17 06:18 11/25/17 06:47 Red Blood Count 3.07 M/uL (4.2-5.4) Mean Corpuscular Volume 101.0 fL (80-100) Mean Corpuscular Hemoglobin 32.6 pg (25-34) Mean Corpuscular Hemoglobin Concent 32.3 g/dl (32-36) RDW Standard Deviation 50.9 fL (36.4-46.3) RDW Coefficient of Variation 14.2 % (11.5-14.5) Mean Platelet Volume 9.8 fL (7.4-10.4) Nucleated RBC Absolute Count (auto) 0.03 K/uL (0-0) Nucleated Red Blood Cells % 0.3 % Anion Gap 12.0 mmol/L (3-11) Est Creatinine Clear Calc Drug Dose 9.8 ml/min Estimated GFR () 6.2 Estimated GFR (Non- 5.4 BUN/Creatinine Ratio 8.4 (10-20) Calcium Level 8.6 mg/dl (8.5-10.1) Bedside Glucose 91 mg/dl (70-90) Allergies Coded Allergies: Oxycodone (Verified Allergy, Intermediate, HIVES, 11/14/17) PER [facility] [employer] [facility] RECOR[facility] Sulfa Antibiotics (Verified Allergy, Intermediate, HIVES, 11/14/17) PER [employer] Cephalexin (Verified Allergy, Mild, HIVES, 11/14/17) Hydrochlorothiazide w/Triamterene (Verified Allergy, Unknown, UNKNOWN, ) Sulfonylureas (Verified Allergy, Unknown, UNKNOWN, 11/14/17) Uncoded Allergies: CARBONIC (Allergy, Unknown, UNKNOWN, 10/24/17) CRBONIC ANHYDRASE INHIBITORS Medications Current Inpatient Medications Medications (Trade) Dose Ordered Sig/Kimmie Route Start Time Stop Time Status Last Admin Dose Admin Acetaminophen (Tylenol Tab) 650 mg Q4H PRN PO 11/22/17 23:30 12/22/17 23:29 11/25/17 00:57 650 MG Al Hydrox/Mg Hydrox/Simethicone (Maalox Max Susp) 15 ml Q4H PRN PO 11/22/17 23:30 12/22/17 23:29 Magnesium Hydroxide (Milk Of Magnesia Susp) 30 ml Q12H PRN PO 11/22/17 23:30 12/22/17 23:29 Ondansetron HCl (Zofran Inj) 4 mg Q6H PRN IV 11/22/17 23:30 12/22/17 23:29 Atorvastatin Calcium (Lipitor Tab) 40 mg DAILY PO 11/23/17 09:00 12/23/17 08:59 11/24/17 08:16 40 MG Levothyroxine Sodium (Synthroid Tab) 25 mcg DAILYBB PO 11/23/17 06:00 12/23/17 05:59 11/25/17 04:18 25 MCG Pramipexole Dihydrochloride (miraPEX TAB) 0.25 mg HS PO 11/23/17 21:00 12/23/17 20:59 11/24/17 21:37 0.25 MG Sertraline HCl (Zoloft Tab) 37.5 mg HS PO 11/23/17 21:00 12/23/17 20:59 11/24/17 21:37 37.5 MG Miscellaneous Information (Consult Glycemic Management Pharmacy) 1 ea DAILY PRN N/A 11/23/17 01:27 12/23/17 01:26 Insulin Aspart (novoLOG ASPART) SLIDING SCALE ACHS SC 11/23/17 07:00 12/23/17 06:59 11/24/17 21:41 1 UNITS Glucose (Glucose 40% Gel) 15-30 GRAMS 15 GRAMS... UD PRN PO 11/23/17 01:30 12/23/17 01:29 Glucose (Glucose Chew Tab) 4-8 Tablets 4 Tabl... UD PRN PO 11/23/17 01:30 12/23/17 01:29 Dextrose (Dextrose 50% 50ML Syringe) 25-50ML OF 50% DW IV FOR... UD PRN IV 11/23/17 01:30 12/23/17 01:29 Glucagon (Glucagon Inj) 1 mg UD PRN SQ 11/23/17 01:30 12/23/17 01:29 Insulin Glargine (Lantus Solostar Pen) 39 units DAILY SC 11/24/17 09:00 12/24/17 08:59 11/24/17 08:21 39 UNITS Clindamycin Phosphate (Cleocin 600mg/ 54ml D5W) 600 mg PREOP ONCE IV 11/25/17 09:40 11/25/17 09:41 UNV Impression (1) End-stage renal disease on hemodialysis (2) Azotemia (3) Dialysis AV fistula malfunction (4) Hyponatremia (5) Anemia ESRD on HD TTS in [place], [place] (dialyzes at hospital unit w/ Dr. Jabier Real ). AVF could not be used at outpatient dialysis unit due to short venous segment. Femoral catheter placed fro HD 11/23/17. Patient tolerated treatment well. I discussed the plan of care with vascular surgery this morning. Patient for TDC placement this morning. PMH - AODM, BMI > 40, HTN, h/o CVA resulting L weakness/ataxic gait (on chronic anticoagulation), hypothyroidism, depression, former smoker Recommendations END STAGE RENAL DISEASE: -- Volume status & electrolyte balance are acceptable at this time. -- Plan HD following TDC placement. -- HIRAM doppler report 11/23 reviewed: L arm AVF is patent -- AVF w/ short venous limb. Could not be used for HD yesterday. -- Plan of care discussed with vascular surgery this morning. HYPERTENSION: -- Blood pressure is currently acceptable. Continue current management ANEMIA: -- Will provide SHANI w/ HD today
[2017-11-25] MEDS ORDERED: EPOETIN ALFA 4000 UNITS/ML VIAL IV SCH (10:00)
[2017-11-25] MEDS ORDERED: PROPOFOL IV EMULSION 10 MG/ML 20 ML VIAL IV ONE (10:45)
[2017-11-25] MEDS ORDERED: ATROPINE SULFATE 0.1 MG/ML 5ML SYR IV PRN (11:00)
[2017-11-25] MEDS ORDERED: EpHEDrine SULFATE INJ 50 MG/ML AMP IV PRN (11:00)
[2017-11-25] MEDS ORDERED: FENTANYL CITRATE INJ 50 MCG/1 ML 2 ML VIAL IV PRN (11:00)
[2017-11-25] MEDS ORDERED: METOPROLOL TARTRATE 1 MG/ML VIAL ONE (11:00)
[2017-11-25] MEDS ORDERED: LIDOCAINE HCL 1% 20 ML VIAL SQ ONE (11:05)
[2017-11-25] MEDS ORDERED: HEPARIN SOD (PORCINE) 5000 UNIT/ML 1 ML VIAL IV ONE (11:05)
[2017-11-25] MEDS ORDERED: IODIXANOL (VISIPAQUE) 270 MG/ML 50ML IV ONE (11:07)
--- NOTE | 2017-11-25 11:16 | [facility] Post Operative Brief Note ---
Immediate Operative Summary Operative Date Nov 25, 2017. Pre-Operative Diagnosis End Stage Renal Disease, Malfunctioning Fistula Post-Operative Diagnosis same Procedure(s) Performed Insertion of Perm Catheter, Left Internal Jugular Approach, Ultrasound Localization of Left Internal Jugular Vein, Fluoroscopy for positioning. Venogram central veins, Removal of Temporary Dialysis Catheter Surgeon Dr. Meza Screen Stretcher Surgeon(s) None Estimated Blood Loss 20 Findings tip in distal SVC near innominate junction Specimens None Anesthesia MAC Complication(s) None Disposition Recovery Room / PACU
--- NOTE | 2017-11-25 11:27 | [facility] Operative Report ---
Operative Report Operative Date Nov 25, 2017. Pre-Operative Diagnosis End Stage Renal Disease, Malfunctioning Fistula Post-Operative Diagnosis same Procedure(s) Performed Insertion of Perm Catheter, Left Internal Jugular Approach, Ultrasound Localization of Left Internal Jugular Vein, Fluoroscopy for positioning. Venogram central veins, Removal of Temporary Dialysis Catheter Surgeon Dr. Meza Agricultural Loan Officer Surgeon(s) None Estimated Blood Loss 20 Findings Tip at SVC innominate junction Specimens None Anesthesia MAC Complication(s) None Disposition Recovery Room / PACU Indications This is a 57-year-old female who is not able to use her right upper arm fistula. She was dialyzed through a femoral temporary catheter over the weekend. She is now here for a PermCath insertion. I have discussed the risks options and benefits of the procedure with the patient. The patient understands the risks options and benefits and agrees to the procedure. Description of Procedure Patient was takent to the angio suite and placed in the supine position. Ultrasound was performed of the right internal jugular vein. This vein cannot be well seen. We then imaged the left internal jugular vein which was patent and compressed easily. The left side of the neck and chest wall were prepped and draped in a sterile manner. Local anesthesia was then administered to the appropriate areas of the neck and chest wall. Ultrasound was then used to locate the left internal jugular vein. The vein compressed easily, had no filing defects, and was patent. The vein was then punctured under direct ultrasound imaging. A guidewire was then passed centrally under fluoroscopic imaging. A stab wound was then made in the anterior chest wall and a 23 cm permcath was passed from the stab wound on the chest wall to the puncture site on the neck. The puncture site was then dilated till the 14Fr peel away sheath was inserted. There was difficulty passing the 14 Bolivian peel-away sheath through the jugular subclavian junction. We then took the dilator out and replaced with a 8 Bolivian sheath. We passed an 035 wire through the subclavian. We injected contrast to help make the turn into the innominate vein and the superior vena cava. Once this was done we used an 035 wire and an angled glide catheter through the 8 Bolivian sheath and manipulated a wire down into the inferior vena cava. The glide catheter was advanced into the inferior vena cava. The 035 wire was exchanged to a Chio wire. We then inserted a new dilator through the 14 Bolivian sheath over the chio wire and advanced the 14 Bolivian sheath into the subclavian vein and innominate vein on the left side. Once this was then placed we then removed the wire and the dilator. The permcath was then inserted through the sheath to a central position in the distal superior vena cava. The peel away sheath was then removed. The catheter was then sutured in place using nylon sutures. The puncture was then closed using a 4-0 Vicryl subcuticular suture. Dermabond was used for a dressing on the puncture site. Both ports aspirated and flushed easily and were then packed with heparin. A sterile dressing was applied to the catheter. The patient left the angio suite in good condition and tolerated the procedure well. I attest to the content of the Intraoperative Record and any orders documented therein. Any exceptions are noted below.
--- NOTE | 2017-11-25 12:09 | Anesthesiology Progress Note ---
Anesthesia Post Op Note Date & Time Nov 25, 2017 at 12:09 Vital Signs Pain Intensity: 2 Vital Signs Past 12 Hours Date Time Temp Pulse Resp B/P (MAP) Pulse Ox O2 Delivery O2 Flow Rate FiO2 11/25/17 12:00 80 19 136/65 94 Nasal Cannula 2 11/25/17 11:50 80 15 143/89 95 Nasal Cannula 2 11/25/17 11:40 86 24 134/60 96 Nasal Cannula 2 11/25/17 11:30 84 21 167/78 94 Nasal Cannula 2 11/25/17 11:24 36.0 89 20 170/81 96 Oxymask 10 11/25/17 08:23 36.5 83 17 122/61 (81) 97 Room Air 11/25/17 08:00 Room Air 11/25/17 04:20 96 2.0 11/25/17 04:15 36.5 81 22 111/76 (88) 95 Nasal Cannula 2.0 11/25/17 00:30 96 Notes Mental Status: alert / awake / arousable, participated in evaluation Pt Amnestic to Procedure: Yes Nausea / Vomiting: adequately controlled Pain: adequately controlled Airway Patency, RR, SpO2: stable & adequate BP & HR: stable & adequate Hydration State: stable & adequate Anesthetic Complications: no major complications apparent
--- NOTE | 2017-11-25 12:57 | Progress Note ---
Subjective Date of Service: Nov 25, 2017. Subjective Pt evaluation today including: conversation w/ patient, physical exam, chart review, lab review, review of studies, review of inpatient medication list Resting comfortably in bed Awaiting permacath placement at this time No concerns or issues at this time Review of Systems Constitutional: No fever, No chills, No sweats, No weakness ENT: No hearing loss, No unusual epistaxis, No nasal symptoms, No sore throat Respiratory: No cough, No sputum, No wheezing, No shortness of breath, No dyspnea on exertion Cardiac: No chest pain, No orthopnea, No PND, No edema, No claudication Abdomen: No pain, No nausea, No vomiting, No diarrhea, No constipation Musculoskeletal: + joint pain, No muscle pain, No swelling, No calf pain Female : No dysuria, No urinary frequency, No hematuria, No incontinence Neurologic: No memory loss, No paralysis, No weakness, No numbness/tingling Psychiatric: No depression symptoms, No anhedonism, No anxiety, No insomnia Endo: No fatigue, No excessive thirst Skin: No rash, No itch Objective Vital Signs Date Time Temp Pulse Resp B/P (MAP) Pulse Ox O2 Delivery O2 Flow Rate FiO2 11/25/17 12:15 36.2 80 17 154/67 94 Nasal Cannula 2 11/25/17 12:00 80 19 136/65 94 Nasal Cannula 2 11/25/17 11:50 80 15 143/89 95 Nasal Cannula 2 11/25/17 11:40 86 24 134/60 96 Nasal Cannula 2 11/25/17 11:30 84 21 167/78 94 Nasal Cannula 2 11/25/17 11:24 36.0 89 20 170/81 96 Oxymask 10 11/25/17 08:23 36.5 83 17 122/61 (81) 97 Room Air 11/25/17 08:00 Room Air 11/25/17 04:20 96 2.0 11/25/17 04:15 36.5 81 22 111/76 (88) 95 Nasal Cannula 2.0 11/25/17 00:30 96 11/24/17 23:19 36.4 86 24 113/72 (86) 92 Room Air 11/24/17 20:00 Room Air 11/24/17 19:19 37.1 85 18 105/87 (93) 97 Room Air 11/24/17 16:00 Room Air 11/24/17 15:05 37.3 83 18 119/61 (80) 95 Room Air Physical Exam General Appearance: WD/WN, no apparent distress Eyes: normal inspection, PERRL, EOMI, sclerae normal Neck: supple, no adenopathy, thyroid normal, no JVD Respiratory/Chest: chest non-tender, lungs clear, normal breath sounds, no respiratory distress Cardiovascular: regular rate, rhythm, no edema, no gallop, no JVD Abdomen: normal bowel sounds, non tender, soft, no organomegaly Extremities: normal range of motion, non-tender, normal inspection, no pedal edema Neurologic/Psychiatric: no motor/sensory deficits, alert, normal mood/affect, oriented x 3 Skin: normal color, warm/dry, no rash Lymphatic: no adenopathy Laboratory Results Last 24 Hours Test 11/24/17 16:16 11/24/17 20:20 11/25/17 06:18 11/25/17 06:47 Bedside Glucose 117 mg/dl 142 mg/dl 91 mg/dl White Blood Count 9.10 K/uL Red Blood Count 3.07 M/uL Hemoglobin 10.0 g/dL Hematocrit 31.0 % Mean Corpuscular Volume 101.0 fL Mean Corpuscular Hemoglobin 32.6 pg Mean Corpuscular Hemoglobin Concent 32.3 g/dl RDW Standard Deviation 50.9 fL RDW Coefficient of Variation 14.2 % Platelet Count 237 K/uL Mean Platelet Volume 9.8 fL Nucleated RBC Absolute Count (auto) 0.03 K/uL Nucleated Red Blood Cells % 0.3 % Sodium Level 138 mmol/L Potassium Level 4.5 mmol/L Chloride Level 105 mmol/L Carbon Dioxide Level 21 mmol/L Anion Gap 12.0 mmol/L Blood Urea Nitrogen 63 mg/dl Creatinine 7.54 mg/dl Est Creatinine Clear Calc Drug Dose 9.8 ml/min Estimated GFR () 6.2 Estimated GFR (Non- 5.4 BUN/Creatinine Ratio 8.4 Random Glucose 106 mg/dl Calcium Level 8.6 mg/dl Test 11/25/17 12:06 Bedside Glucose 119 mg/dl Assessment and Plan 57 yo F w/ T2DM, CVA ,hypothyroidism, recurrent UTI, CKD stage iv on dialysis , obesity, Afib (on Coumadin), CAD, HTN, HLD, Depression presenting w/ malfunctioning AV fistula while attempting to receive scheduled Dialysis treatment End-stage renal disease/AVF malfunction - Nephrology consulted, urgent dialysis needed as creatinine 8 upon admission - LUE doppler - L arm AVF is patent, vascular surg consulted for fistula eval - Fem cath placed temp for dialysis, removed and replaced with permacath on 1/ Atrial fibrillation - Rate controlled - Metoprolol and Coumadin currently held Hypothyroidism -Continue Synthroid T2DM - Insulin sliding scale - Glycemic consult Depression - Continue Zoloft CAD/hyperlipidemia/TN - Continue statin DVT Prophaylxis - SCD's - Coumadin held as may need vascular procedure Full code
[2017-11-25] MEDS: INSULIN GLARGINE SOLOSTAR 100 UNITS/ML 3 ML PEN SC SCH (17:23)
[2017-11-25] MEDS: PRAMIPEXOLE DIHYDROCHLORIDE 0.25MG TAB PO SCH (19:47)
[2017-11-25] MEDS: SERTRALINE HCL 50 MG TAB PO SCH (19:47)
[2017-11-26] VITALS (8 sets, daily range): BP systolic 119–154; BP diastolic 48–107; PULSE 85–96; TEMP 36.5–37; O2SAT 93–96
[2017-11-26] MEDS: LEVOTHYROXINE 25 MCG TAB PO SCH (05:44)
[2017-11-26] MEDS: INSULIN ASPART 100 UNITS/ML 3 ML PEN SC SCH ×4 (07:38→21:33)
[2017-11-26] MEDS: INSULIN GLARGINE SOLOSTAR 100 UNITS/ML 3 ML PEN SC SCH (07:39)
[2017-11-26] MEDS: ATORVASTATIN 20 MG TAB PO SCH (07:40)
--- NOTE | 2017-11-26 08:08 | Anesthesiology Progress Note ---
Anesthesia Post Op Note Date & Time Nov 26, 2017 at 08:08 Vital Signs Pain Intensity: 0.0 Vital Signs Past 12 Hours Date Time Temp Pulse Resp B/P (MAP) Pulse Ox O2 Delivery O2 Flow Rate FiO2 11/26/17 08:06 36.8 90 18 125/51 (75) 95 11/26/17 04:37 36.5 85 18 120/72 (88) 93 Room Air 11/26/17 04:00 Room Air 11/26/17 00:17 36.9 87 20 125/48 (73) 96 Room Air 11/26/17 00:00 Room Air Notes Mental Status: alert / awake / arousable, participated in evaluation Pt Amnestic to Procedure: Yes Nausea / Vomiting: adequately controlled Pain: adequately controlled Airway Patency, RR, SpO2: stable & adequate BP & HR: stable & adequate Hydration State: stable & adequate Anesthetic Complications: no major complications apparent
--- NOTE | 2017-11-26 10:16 | Nephrology Progress Note ---
Nephrology Progress Note Date of Service Nov 26, 2017. Chief Complaint ESRD Subjective No acute events overnight. Kortney feels well this morning. She continues to have some pain in her right arm. She has mild tenderness over TDC. Dressing to femoral exit site CDI. TDC placed without complications. Unfortunately, catheter did not function well for dialysis yesterday. Qb was sluggish and catheter positional. Review of Systems A complete review of systems was performed. Pertinent positives are noted above. All other systems are negative. Vital Signs Last 8 Hrs Date Time Temp Pulse Resp B/P (MAP) Pulse Ox O2 Delivery O2 Flow Rate FiO2 11/26/17 08:06 36.8 90 18 125/51 (75) 95 11/26/17 08:00 Room Air 11/26/17 04:37 36.5 85 18 120/72 (88) 93 Room Air 11/26/17 04:00 Room Air Last Recorded Weight Weight (Kilograms): 111.100 Physical Exam General Appearance: no apparent distress, + obese Head: normocephalic, atraumatic Eyes: normal inspection, sclerae normal ENT: normal ENT inspection, pharynx normal Neck: supple, no JVD, + pertinent finding (L IJ TDC) Respiratory/Chest: lungs clear, no respiratory distress, no accessory muscle use Cardiovascular: regular rate, rhythm, no gallop Abdomen/GI: non tender, soft Extremities/Musculoskelatal: normal inspection, no pedal edema, + pertinent finding (AVF with thrill and bruit) Neurologic/Psych: alert, normal mood/affect Family History Mother and sister both w/ ESRD on IHD due to DM Social History Smokeless Tobacco Use: No Alcohol Use: none Drug Use: none Occupation: disabled . Lives in [place], [place]. 3 children in good health. College education. 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 Laboratory Results Past 24 Hours Test 11/25/17 12:06 11/25/17 12:47 11/25/17 16:19 11/25/17 20:28 Bedside Glucose 119 mg/dl (70-90) 116 mg/dl (70-90) 111 mg/dl (70-90) 157 mg/dl (70-90) Test 11/26/17 07:06 Bedside Glucose 117 mg/dl (70-90) Allergies Coded Allergies: Oxycodone (Verified Allergy, Intermediate, HIVES, 11/14/17) PER [employer] Sulfa Antibiotics (Verified Allergy, Intermediate, HIVES, 11/14/17) PER [employer] Cephalexin (Verified Allergy, Mild, HIVES, 11/14/17) Hydrochlorothiazide w/Triamterene (Verified Allergy, Unknown, UNKNOWN, ) Sulfonylureas (Verified Allergy, Unknown, UNKNOWN, 11/14/17) Uncoded Allergies: CARBONIC (Allergy, Unknown, UNKNOWN, 10/24/17) CRBONIC ANHYDRASE INHIBITORS Medications Current Inpatient Medications Medications (Trade) Dose Ordered Sig/Kimmie Route Start Time Stop Time Status Last Admin Dose Admin Acetaminophen (Tylenol Tab) 650 mg Q4H PRN PO 11/22/17 23:30 12/22/17 23:29 11/25/17 21:06 650 MG Al Hydrox/Mg Hydrox/Simethicone (Maalox Max Susp) 15 ml Q4H PRN PO 11/22/17 23:30 12/22/17 23:29 Magnesium Hydroxide (Milk Of Magnesia Susp) 30 ml Q12H PRN PO 11/22/17 23:30 12/22/17 23:29 Ondansetron HCl (Zofran Inj) 4 mg Q6H PRN IV 11/22/17 23:30 12/22/17 23:29 Atorvastatin Calcium (Lipitor Tab) 40 mg DAILY PO 11/23/17 09:00 12/23/17 08:59 11/26/17 07:40 40 MG Levothyroxine Sodium (Synthroid Tab) 25 mcg DAILYBB PO 11/23/17 06:00 12/23/17 05:59 11/26/17 05:44 25 MCG Pramipexole Dihydrochloride (miraPEX TAB) 0.25 mg HS PO 11/23/17 21:00 12/23/17 20:59 11/25/17 19:47 0.25 MG Sertraline HCl (Zoloft Tab) 37.5 mg HS PO 11/23/17 21:00 12/23/17 20:59 11/25/17 19:47 37.5 MG Miscellaneous Information (Consult Glycemic Management Pharmacy) 1 ea DAILY PRN N/A 11/23/17 01:27 12/23/17 01:26 Insulin Aspart (novoLOG ASPART) SLIDING SCALE ACHS SC 11/23/17 07:00 12/23/17 06:59 11/26/17 07:38 6 UNITS Glucose (Glucose 40% Gel) 15-30 GRAMS 15 GRAMS... UD PRN PO 11/23/17 01:30 12/23/17 01:29 Glucose (Glucose Chew Tab) 4-8 Tablets 4 Tabl... UD PRN PO 11/23/17 01:30 12/23/17 01:29 Dextrose (Dextrose 50% 50ML Syringe) 25-50ML OF 50% DW IV FOR... UD PRN IV 11/23/17 01:30 12/23/17 01:29 Glucagon (Glucagon Inj) 1 mg UD PRN SQ 11/23/17 01:30 12/23/17 01:29 Insulin Glargine (Lantus Solostar Pen) 39 units DAILY SC 11/24/17 09:00 12/24/17 08:59 11/26/17 07:39 39 UNITS Impression (1) End-stage renal disease on hemodialysis (2) Azotemia (3) Dialysis AV fistula malfunction (4) Hyponatremia (5) Anemia ESRD on HD TTS in [place], [place] (dialyzes at hospital unit w/ Dr. Jabier Real ). AVF could not be used at outpatient dialysis unit due to short venous segment. Femoral catheter placed fro HD 11/23/17. Femoral catheter removed yesterday. [facility]J THC placed. Patient tolerated treatment well with complications including poor Qb. I will discuss the plan of care with vascular surgery this morning. Catheter may need to be changed. At this time, I cannot guarantee adequate access for HD. PMH - AODM, BMI > 40, HTN, h/o CVA resulting L weakness/ataxic gait (on chronic anticoagulation), hypothyroidism, depression, former smoker Recommendations END STAGE RENAL DISEASE: -- Volume status & electrolyte balance are acceptable at this time. -- LUE doppler: L arm AVF is patent -- AVF w/ short venous limb. Could not be used for HD. -- TDC did not function well yesterday, will discuss with vascular surgery HYPERTENSION: -- Blood pressure is currently acceptable. Continue current management ANEMIA: -- SHANI QHD
--- NOTE | 2017-11-26 14:06 | DIAGNOSTIC IMAGING REPORT ---
DUPLEX ULTRASOUND OF A RIGHT ARM DIALYSIS FISTULA CLINICAL HISTORY: Possible steal syndrome. End stage renal disease on hemodialysis. COMPARISON STUDY: 11/23/2017 FINDINGS: Color-flow and spectral waveform analysis was performed. The cephalic vein is patent. There is an antecubital fossa AV fistula. The fistula is patent. The brachial artery distal to the anastomosis is patent with normal directional flow. The radial artery distal to the fistula demonstrates dampened monophasic flow. IMPRESSION: 1. The right arm dialysis AV fistula is patent 2. No evidence of outflow vein thrombosis 3. The radial artery distal to the fistula demonstrates dampened monophasic flow. Electronically signed by: Fredis Dooley M.D. 11/26/2017 2:05 PM Dictated Date/Time: 11/26/2017 2:01 PM
--- NOTE | 2017-11-26 14:57 | Progress Note ---
Subjective Date of Service: Nov 26, 2017. Subjective Pt evaluation today including: conversation w/ patient, physical exam, chart review, lab review, review of studies, review of inpatient medication list Pt resting comfortably in bed No distress noted Denies any worsening pain Unfortunately poor flow through permacath yesterday Review of Systems Constitutional: No fever, No chills, No sweats, No weakness Eyes: No worsening of vision, No eye pain, No redness, No discharge Respiratory: No cough, No sputum, No wheezing, No shortness of breath, No dyspnea on exertion Cardiac: No chest pain, No orthopnea, No PND, No edema, No claudication Abdomen: No pain, No nausea, No vomiting, No diarrhea, No constipation Musculoskeletal: No joint pain, No muscle pain, No swelling, No calf pain Female : No dysuria, No urinary frequency, No hematuria, No abnormal vaginal bleeding Neurologic: No memory loss, No paralysis, No weakness, No numbness/tingling Psychiatric: No depression symptoms, No anhedonism, No anxiety, No insomnia Endo: No fatigue, No excessive thirst Skin: No rash, No itch Objective Vital Signs Date Time Temp Pulse Resp B/P (MAP) Pulse Ox O2 Delivery O2 Flow Rate FiO2 11/26/17 12:00 Room Air 11/26/17 11:39 36.9 88 20 119/61 (80) 96 11/26/17 08:06 36.8 90 18 125/51 (75) 95 11/26/17 08:00 Room Air 11/26/17 04:37 36.5 85 18 120/72 (88) 93 Room Air 11/26/17 04:00 Room Air 11/26/17 00:17 36.9 87 20 125/48 (73) 96 Room Air 11/26/17 00:00 Room Air 11/25/17 20:00 Room Air 11/25/17 19:55 93 22 140/86 (104) 96 Room Air 11/25/17 16:06 37.0 86 122/61 (81) 11/25/17 16:00 Room Air 11/25/17 15:54 36.8 84 20 131/61 (84) 96 Nasal Cannula 1.0 11/25/17 15:30 87 115/78 11/25/17 15:15 86 123/77 11/25/17 15:00 85 153/97 Physical Exam General Appearance: WD/WN, no apparent distress Eyes: normal inspection, PERRL, EOMI, sclerae normal Neck: supple, no adenopathy, thyroid normal, no JVD Respiratory/Chest: chest non-tender, lungs clear, normal breath sounds, no respiratory distress Cardiovascular: regular rate, rhythm, no edema, no gallop, no JVD Abdomen: normal bowel sounds, non tender, soft, no organomegaly Neurologic/Psychiatric: no motor/sensory deficits, alert, normal mood/affect, oriented x 3 Skin: normal color, warm/dry, no rash Lymphatic: no adenopathy Laboratory Results Last 24 Hours Test 11/25/17 16:19 11/25/17 20:28 11/26/17 07:06 Bedside Glucose 111 mg/dl 157 mg/dl 117 mg/dl Assessment and Plan 57 yo F w/ T2DM, CVA ,hypothyroidism, recurrent UTI, CKD stage iv on dialysis , obesity, Afib (on Coumadin), CAD, HTN, HLD, Depression presenting w/ malfunctioning AV fistula while attempting to receive scheduled Dialysis treatment End-stage renal disease/AVF malfunction - Nephrology consulted, urgent dialysis needed as creatinine 8 upon admission - LUE doppler - L arm AVF is patent, vascular surg consulted for fistula eval - Fem cath placed temp for dialysis, removed and replaced with permacath on 11/25 - Unable to optimize dialysis via permacath, vascular surg to reval Atrial fibrillation - Rate controlled - Metoprolol and Coumadin currently held Hypothyroidism -Continue Synthroid T2DM - Insulin sliding scale - Glycemic consult Depression - Continue Zoloft CAD/hyperlipidemia/TN - Continue statin DVT Prophaylxis - SCD's - Coumadin held as may need vascular procedure Full code
[2017-11-26] MEDS: PRAMIPEXOLE DIHYDROCHLORIDE 0.25MG TAB PO SCH (21:28)
[2017-11-26] MEDS: SERTRALINE HCL 50 MG TAB PO SCH (21:30)
[2017-11-26] MEDS: ACETAMINOPHEN 325 MG TAB PO PRN (23:46)
[2017-11-27] VITALS (19 sets, daily range): BP systolic 100–172; BP diastolic 55–84; PULSE 81–102; TEMP 36.5–36.9; O2SAT 94–97
[2017-11-27 05:56] LABS: HEMATOCRIT 32.2 % (37-47); HEMOGLOBIN 10.2 g/dL (12.0-16.0)
[2017-11-27] MEDS: LEVOTHYROXINE 25 MCG TAB PO SCH (06:11)
[2017-11-27 06:46] LABS: ALBUMIN 2.7 gm/dl (3.4-5.0); CALCIUM 8.4 mg/dl (8.5-10.1); CREATININE 8.38 mg/dl (0.60-1.20); PHOSPHORUS 5.6 mg/dl (2.5-4.9); POTASSIUM 4.4 mmol/L (3.5-5.1)
[2017-11-27] MEDS: ATORVASTATIN 20 MG TAB PO SCH (07:50)
[2017-11-27] MEDS: INSULIN ASPART 100 UNITS/ML 3 ML PEN SC SCH ×4 (07:52→22:00)
[2017-11-27] MEDS: INSULIN GLARGINE SOLOSTAR 100 UNITS/ML 3 ML PEN SC SCH (07:52)
[2017-11-27] MEDS ORDERED: EPOETIN ALFA 4000 UNITS/ML VIAL IV SCH (10:00)
--- NOTE | 2017-11-27 10:06 | Nephrology Progress Note ---
Nephrology Progress Note Date of Service Nov 27, 2017. Chief Complaint ESRD Subjective No acute events overnight. No complaints this morning. Kortney is resting comfortably in bed. She reports some persistent pain over her AVF as well as tenderness over the TDC. Symptoms are tolerable. She was started on hemodialysis this morning. Kortney is breathing comfortably. She denies any headaches. She denies lightheadedness or dizziness. She denies chest pain or palpitations. I discussed the plan of care with vascular surgery yesterday. Review of Systems A complete review of systems was performed. Pertinent positives are noted above. All other systems are negative. Vital Signs Last 8 Hrs Date Time Temp Pulse Resp B/P (MAP) Pulse Ox O2 Delivery O2 Flow Rate FiO2 11/27/17 09:30 94 172/74 11/27/17 09:16 84 148/66 11/27/17 09:00 36.7 90 144/56 (85) 11/27/17 07:27 36.5 91 20 153/73 (99) 96 11/27/17 04:30 97 Room Air 11/27/17 03:38 36.6 85 18 128/84 (99) 97 Room Air Last Recorded Weight Weight (Kilograms): 108.500 Physical Exam General Appearance: no apparent distress, + obese Head: normocephalic, atraumatic Eyes: normal inspection, sclerae normal ENT: normal ENT inspection, pharynx normal, + pertinent finding (oral mucosa dry) Neck: supple, no JVD, + pertinent finding (THC intact with clean exit site and minimal surrounding bruising) Respiratory/Chest: no respiratory distress, no accessory muscle use, + decreased breath sounds Cardiovascular: regular rate, rhythm, no gallop, no murmur Abdomen/GI: non tender, soft Extremities/Musculoskelatal: + pertinent finding (AVF with bruit) Neurologic/Psych: alert, normal mood/affect Family History Mother and sister both w/ ESRD on IHD due to DM Social History Smokeless Tobacco Use: No Alcohol Use: none Drug Use: none Occupation: disabled . Lives in [place], [place]. 3 children in good health. College education. 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 Laboratory Results Past 24 Hours 11/27/17 05:41 11/27/17 05:41 Test 11/26/17 11:21 11/26/17 16:40 11/26/17 20:16 11/27/17 05:41 Bedside Glucose 151 mg/dl (70-90) 159 mg/dl (70-90) 158 mg/dl (70-90) Anion Gap 9.0 mmol/L (3-11) Est Creatinine Clear Calc Drug Dose 8.7 ml/min Estimated GFR () 5.5 Estimated GFR (Non- 4.7 BUN/Creatinine Ratio 8.0 (10-20) Calcium Level 8.4 mg/dl (8.5-10.1) Phosphorus Level 5.6 mg/dl (2.5-4.9) Albumin 2.7 gm/dl (3.4-5.0) Test 11/27/17 06:42 Bedside Glucose 114 mg/dl (70-90) Allergies Coded Allergies: Oxycodone (Verified Allergy, Intermediate, HIVES, 11/14/17) PER [employer] Sulfa Antibiotics (Verified Allergy, Intermediate, HIVES, 11/14/17) PER [employer] Cephalexin (Verified Allergy, Mild, HIVES, 11/14/17) Hydrochlorothiazide w/Triamterene (Verified Allergy, Unknown, UNKNOWN, ) Sulfonylureas (Verified Allergy, Unknown, UNKNOWN, 11/14/17) Uncoded Allergies: CARBONIC (Allergy, Unknown, UNKNOWN, 10/24/17) CRBONIC ANHYDRASE INHIBITORS Medications Current Inpatient Medications Medications (Trade) Dose Ordered Sig/Kimmie Route Start Time Stop Time Status Last Admin Dose Admin Acetaminophen (Tylenol Tab) 650 mg Q4H PRN PO 11/22/17 23:30 12/22/17 23:29 11/26/17 23:46 650 MG Al Hydrox/Mg Hydrox/Simethicone (Maalox Max Susp) 15 ml Q4H PRN PO 11/22/17 23:30 12/22/17 23:29 Magnesium Hydroxide (Milk Of Magnesia Susp) 30 ml Q12H PRN PO 11/22/17 23:30 12/22/17 23:29 Ondansetron HCl (Zofran Inj) 4 mg Q6H PRN IV 11/22/17 23:30 12/22/17 23:29 Atorvastatin Calcium (Lipitor Tab) 40 mg DAILY PO 11/23/17 09:00 12/23/17 08:59 11/27/17 07:50 40 MG Levothyroxine Sodium (Synthroid Tab) 25 mcg DAILYBB PO 11/23/17 06:00 12/23/17 05:59 11/27/17 06:11 25 MCG Pramipexole Dihydrochloride (miraPEX TAB) 0.25 mg HS PO 11/23/17 21:00 12/23/17 20:59 11/26/17 21:28 0.25 MG Sertraline HCl (Zoloft Tab) 37.5 mg HS PO 11/23/17 21:00 12/23/17 20:59 11/26/17 21:30 37.5 MG Miscellaneous Information (Consult Glycemic Management Pharmacy) 1 ea DAILY PRN N/A 11/23/17 01:27 12/23/17 01:26 Insulin Aspart (novoLOG ASPART) SLIDING SCALE ACHS SC 11/23/17 07:00 12/23/17 06:59 11/27/17 07:52 6 UNITS Glucose (Glucose 40% Gel) 15-30 GRAMS 15 GRAMS... UD PRN PO 11/23/17 01:30 12/23/17 01:29 Glucose (Glucose Chew Tab) 4-8 Tablets 4 Tabl... UD PRN PO 11/23/17 01:30 12/23/17 01:29 Dextrose (Dextrose 50% 50ML Syringe) 25-50ML OF 50% DW IV FOR... UD PRN IV 11/23/17 01:30 12/23/17 01:29 Glucagon (Glucagon Inj) 1 mg UD PRN SQ 11/23/17 01:30 12/23/17 01:29 Insulin Glargine (Lantus Solostar Pen) 39 units DAILY SC 11/24/17 09:00 12/24/17 08:59 11/27/17 07:52 39 UNITS Impression (1) End-stage renal disease on hemodialysis (2) Azotemia (3) Dialysis AV fistula malfunction (4) Hyponatremia (5) Anemia ESRD on HD TTS in [place], [place] (dialyzes at hospital unit w/ Dr. Jabier Real ). AVF could not be used at outpatient dialysis unit due to short venous segment. Femoral catheter placed fro HD 11/23/17. Femoral catheter removed 11/25 and LIJ THC placed. Unfortunately, Qb via the catheter was poor. I discussed this with vascular surgery. We will try to use the catheter for hemodialysis again today. If adequate blood flow and clearance is nota able to be obtained, a new catheter will be required or return to AVF for use as able. PMH - AODM, BMI > 40, HTN, h/o CVA resulting L weakness/ataxic gait (on chronic anticoagulation), hypothyroidism, depression, former smoker Recommendations END STAGE RENAL DISEASE: -- HD today. Plan of care discussed with HD nurse. Goal UF 2-3 L. -- If adequate Qb cannot be obtained, dialysis will need to be held pending new catheter placement or return to AVF. -- LUE doppler: L arm AVF is patent but may not yet be appropriate for use pending vascular surgery follow up. HYPERTENSION: -- Blood pressure is currently acceptable. Continue current management ANEMIA: -- SHANI QHD
[2017-11-27] MEDS: ACETAMINOPHEN 325 MG TAB PO PRN ×2 (10:55→16:59)
[2017-11-27] MEDS: EPOETIN ALFA INJ 4,000 UNITS in SYRINGE 0 ML IV. SCH (11:20)
--- NOTE | 2017-11-27 12:36 | Pharmacy Progress Note ---
Glycemic Control Progress Note Date of Service Nov 27, 2017. Scope Glycemic Pharmacist consulted for glycemic control to write orders per [facility] inpatient glycemic control protocol. Objective Accuchecks BSG (last 24hrs): Test 11/26/17 16:40 11/26/17 20:16 11/27/17 05:41 11/27/17 06:42 Bedside Glucose 159 mg/dl (70-90) 158 mg/dl (70-90) 114 mg/dl (70-90) Random Glucose 119 mg/dl (70-99) Test 11/27/17 11:08 Bedside Glucose 181 mg/dl (70-90) HbA1c: Test 11/23/17 05:32 Hemoglobin A1c 7.3 % (4.5-5.6) H Recent Pertinent Medications The patient is currently receiving: * Basal insulin: Lantus 39 units every 24 hours - dosed in the AM * Correctional Insulin: Novolog Correction per scale ACHS Goal Range: Low 110 mg/dL - High 140 mg/dL Correction Factor: 20 mg/dL/unit * Prandial insulin: Per carb ratio of 1 unit per 7 grams CHO consumed Outpatient Anti-Diabetic Meds The following doses were reported on the patient's Med Rec, she was a transfer from [facility]: Lantus 42 units SQ Q AM Humalog 7 units TID w/ meals and 4 units Q HS Assessment & Plan ASSESSMENT: 11/25/17 * BSGs have been well controlled over the last 24 hrs * She has received 57 units of SQ insulin over the last 24 hrs and tolerating a diet (ate 2 of 3 meals yesterday) * Fasting BSG 91-106 this AM w/ 39 units of basal insulin on board. This is at goal for FBS, however will need to watch from further decrease in fasting numbers w/ repeat dosing. * Current CF and CR performing well. * Uncertain if patient is to receive HD today, no HD orders yet entered 11/27/17 * BSGs well controlled with current regimen * Fasting 114 this AM w/ 39 units Lantus on board, Lantus is near steady-state with current regimen * Post-prandial BSGs well controlled w/ CR * HD ordered for today PLAN FOR INPATIENT GLYCEMIC CONTROL: * Continuing Lantus 39 units SQ Q AM for now, reevaluate tomorrow * Continuing correction factor of 20 mg/dl/unit * Continuing carb ratio of 1 unit per 7 grams CHO consumed * Continuing goal range of Low 110 mg/dL - High 140 mg/dL * Please note that the plan above was derived based on current level of insulin resistance and hospital stress. These recommendations are appropriate for inpatient admission only. Plan of care upon discharge will need to be reassessed to avoid potential outpatient hypo/hyperglycemia. Thank you.
--- NOTE | 2017-11-27 15:12 | Progress Note ---
Subjective Date of Service: Nov 27, 2017. Subjective Pt evaluation today including: conversation w/ patient, physical exam, chart review, lab review, review of studies, review of inpatient medication list Resting comfortably in bed Slight pain around IJ site No issues overnight Dialysis session this AM Review of Systems Constitutional: No fever, No chills, No sweats, No weight loss Eyes: No worsening of vision, No eye pain, No redness, No discharge Respiratory: No cough, No sputum, No wheezing, No shortness of breath Cardiac: No chest pain, No orthopnea, No PND, No edema Abdomen: No pain, No nausea, No vomiting, No diarrhea Musculoskeletal: + muscle pain, No joint pain, No swelling, No calf pain Female : No dysuria, No urinary frequency, No hematuria Neurologic: No memory loss, No paralysis, No weakness, No numbness/tingling Psychiatric: No depression symptoms, No anhedonism, No anxiety, No insomnia Skin: No rash, No itch Objective Vital Signs Date Time Temp Pulse Resp B/P (MAP) Pulse Ox O2 Delivery O2 Flow Rate FiO2 11/27/17 12:24 36.9 90 119/59 (79) 11/27/17 12:00 Room Air 11/27/17 11:39 36.8 102 20 133/59 (83) 96 11/27/17 11:30 90 132/68 11/27/17 11:15 86 107/65 11/27/17 11:00 89 133/57 11/27/17 10:45 90 102/75 11/27/17 10:30 91 105/55 11/27/17 10:15 88 139/57 11/27/17 10:00 89 120/65 11/27/17 09:45 81 100/82 11/27/17 09:30 94 172/74 11/27/17 09:16 84 148/66 11/27/17 09:00 36.7 90 144/56 (85) 11/27/17 08:00 Room Air 11/27/17 07:27 36.5 91 20 153/73 (99) 96 11/27/17 04:30 97 Room Air 11/27/17 03:38 36.6 85 18 128/84 (99) 97 Room Air 11/27/17 00:01 96 Room Air 11/26/17 23:35 36.8 92 18 154/81 (105) 96 Room Air 11/26/17 20:00 94 Room Air 11/26/17 19:42 36.8 96 22 130/107 (115) 94 Room Air 11/26/17 16:00 Room Air 11/26/17 15:25 37.0 88 20 149/96 (113) 95 Room Air Physical Exam General Appearance: WD/WN, no apparent distress, + obese Eyes: normal inspection, PERRL, EOMI, sclerae normal Neck: supple, no adenopathy, thyroid normal, no JVD Respiratory/Chest: chest non-tender, lungs clear, normal breath sounds, no respiratory distress Cardiovascular: regular rate, rhythm, no edema, no gallop, no JVD Abdomen: normal bowel sounds, non tender, soft, no organomegaly Extremities: normal range of motion, non-tender, normal inspection, no pedal edema Neurologic/Psychiatric: no motor/sensory deficits, alert, normal mood/affect, oriented x 3 Laboratory Results Last 24 Hours Test 11/26/17 16:40 11/26/17 20:16 11/27/17 05:41 11/27/17 06:42 Bedside Glucose 159 mg/dl 158 mg/dl 114 mg/dl Hemoglobin 10.2 g/dL Hematocrit 32.2 % Sodium Level 136 mmol/L Potassium Level 4.4 mmol/L Chloride Level 105 mmol/L Carbon Dioxide Level 22 mmol/L Anion Gap 9.0 mmol/L Blood Urea Nitrogen 68 mg/dl Creatinine 8.38 mg/dl Est Creatinine Clear Calc Drug Dose 8.7 ml/min Estimated GFR () 5.5 Estimated GFR (Non- 4.7 BUN/Creatinine Ratio 8.0 Random Glucose 119 mg/dl Calcium Level 8.4 mg/dl Phosphorus Level 5.6 mg/dl Albumin 2.7 gm/dl Test 11/27/17 11:08 Bedside Glucose 181 mg/dl Assessment and Plan 57 yo F w/ T2DM, CVA ,hypothyroidism, recurrent UTI, CKD stage iv on dialysis , obesity, Afib (on Coumadin), CAD, HTN, HLD, Depression presenting w/ malfunctioning AV fistula while attempting to receive scheduled Dialysis treatment End-stage renal disease/AVF malfunction - Nephrology consulted, urgent dialysis needed as creatinine 8 upon admission - LUE doppler - L arm AVF is patent, vascular surg consulted for fistula eval - Fem cath placed temp for dialysis, removed and replaced with permacath on 11/25 - Unable to optimize dialysis via permacath, vascular surg to reval Atrial fibrillation - Rate controlled - Metoprolol and Coumadin currently held Hypothyroidism -Continue Synthroid T2DM - Insulin sliding scale - Glycemic consult Depression - Continue Zoloft CAD/hyperlipidemia/TN - Continue statin DVT Prophaylxis - SCD's - Coumadin held as may need vascular procedure, heparin SC at this time Full code
[2017-11-27] MEDS ORDERED: NURSING VERBAL MED ORDER ONE (18:30)
[2017-11-27] MEDS ORDERED: HYDROCODONE/ACETAMOPHEN 5/325MG TAB PO ONE (19:00)
[2017-11-27] MEDS: PRAMIPEXOLE DIHYDROCHLORIDE 0.25MG TAB PO SCH (22:13)
[2017-11-27] MEDS: SERTRALINE HCL 50 MG TAB PO SCH (22:14)
[2017-11-27] MEDS: HEPARIN SOD 5000 UNIT/0.5 ML CARP SQ SCH (22:15)
[2017-11-28] VITALS (24 sets, daily range): BP systolic 82–162; BP diastolic 38–99; PULSE 78–102; TEMP 36.6–37.1; O2SAT 96–98
[2017-11-28] MEDS: ACETAMINOPHEN 325 MG TAB PO PRN ×3 (01:37→23:15)
[2017-11-28] MEDS: LEVOTHYROXINE 25 MCG TAB PO SCH (05:38)
[2017-11-28] MEDS: HEPARIN SOD 5000 UNIT/0.5 ML CARP SQ SCH ×3 (05:39→21:01)
[2017-11-28] MEDS: INSULIN ASPART 100 UNITS/ML 3 ML PEN SC SCH ×4 (06:30→21:00)
[2017-11-28] MEDS: ATORVASTATIN 20 MG TAB PO SCH (08:17)
[2017-11-28] MEDS: INSULIN GLARGINE SOLOSTAR 100 UNITS/ML 3 ML PEN SC SCH (08:18)
--- NOTE | 2017-11-28 10:10 | Progress Note ---
Progress Note Date of Service Nov 28, 2017. Progress Note Patient for permcath exchange to a longer catheter due to poor run volumes. I have discussed the risks options and benefits of the procedure with the patient and her sister. The patient and sister understand the risks options and benefits and agrees to the procedure. I have examined the patient, reviewed the History & Physical and in the interval since the performance of the History & Physical I have noted the following changes of clinical significance: No changes noted
--- NOTE | 2017-11-28 10:32 | Nephrology Progress Note ---
Nephrology Progress Note Date of Service Nov 28, 2017. Chief Complaint ESRD Subjective No acute events overnight. No complaints this morning. Kortney was seen and evaluated during hemodialysis. 17 g arterial needle to the AVF with return to catheter. Qb 250. No alarms. BP appropriate. Kortney is tolerating dialysis well. She hopes to be discharged home today. I discussed the plan of care with vascular surgery (Dr. Meza) as well as Dr. Pizarro. Review of Systems A complete review of systems was performed. Pertinent positives are noted above. All other systems are negative. Vital Signs Last 8 Hrs Date Time Temp Pulse Resp B/P (MAP) Pulse Ox O2 Delivery O2 Flow Rate FiO2 11/28/17 09:12 36.8 79 146/60 (88) 11/28/17 08:00 Room Air 11/28/17 07:29 36.7 88 20 111/67 (82) 96 Room Air Last Recorded Weight Weight (Kilograms): 112.300 Physical Exam General Appearance: no apparent distress, + obese Head: normocephalic, atraumatic Eyes: normal inspection, sclerae normal ENT: normal ENT inspection, pharynx normal Neck: supple, no JVD Respiratory/Chest: lungs clear, no respiratory distress, no accessory muscle use Cardiovascular: regular rate, rhythm, no gallop Abdomen/GI: non tender, soft Extremities/Musculoskelatal: normal inspection, no pedal edema Neurologic/Psych: alert, normal mood/affect Family History Mother and sister both w/ ESRD on IHD due to DM Social History Smokeless Tobacco Use: No Alcohol Use: none Drug Use: none Occupation: disabled . Lives in [place], [place]. 3 children in good health. College education. 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 Laboratory Results Past 24 Hours Test 11/27/17 11:08 11/27/17 16:42 11/27/17 20:04 11/28/17 07:43 Bedside Glucose 181 mg/dl (70-90) 109 mg/dl (70-90) 132 mg/dl (70-90) 92 mg/dl (70-90) Allergies Coded Allergies: Oxycodone (Verified Allergy, Intermediate, HIVES, 11/14/17) PER [facility] Sulfa Antibiotics (Verified Allergy, Intermediate, HIVES, 11/14/17) PER [facility] Cephalexin (Verified Allergy, Mild, HIVES, 11/14/17) Hydrochlorothiazide w/Triamterene (Verified Allergy, Unknown, UNKNOWN, ) Sulfonylureas (Verified Allergy, Unknown, UNKNOWN, 11/14/17) Uncoded Allergies: CARBONIC (Allergy, Unknown, UNKNOWN, 10/24/17) CRBONIC ANHYDRASE INHIBITORS Medications Current Inpatient Medications Medications (Trade) Dose Ordered Sig/Kimmie Route Start Time Stop Time Status Last Admin Dose Admin Acetaminophen (Tylenol Tab) 650 mg Q4H PRN PO 11/22/17 23:30 12/22/17 23:29 11/28/17 01:37 650 MG Al Hydrox/Mg Hydrox/Simethicone (Maalox Max Susp) 15 ml Q4H PRN PO 11/22/17 23:30 12/22/17 23:29 Magnesium Hydroxide (Milk Of Magnesia Susp) 30 ml Q12H PRN PO 11/22/17 23:30 12/22/17 23:29 Ondansetron HCl (Zofran Inj) 4 mg Q6H PRN IV 11/22/17 23:30 12/22/17 23:29 Atorvastatin Calcium (Lipitor Tab) 40 mg DAILY PO 11/23/17 09:00 12/23/17 08:59 11/28/17 08:17 40 MG Levothyroxine Sodium (Synthroid Tab) 25 mcg DAILYBB PO 11/23/17 06:00 12/23/17 05:59 11/28/17 05:38 25 MCG Pramipexole Dihydrochloride (miraPEX TAB) 0.25 mg HS PO 11/23/17 21:00 12/23/17 20:59 11/27/17 22:13 0.25 MG Sertraline HCl (Zoloft Tab) 37.5 mg HS PO 11/23/17 21:00 12/23/17 20:59 11/27/17 22:14 37.5 MG Miscellaneous Information (Consult Glycemic Management Pharmacy) 1 ea DAILY PRN N/A 11/23/17 01:27 12/23/17 01:26 Insulin Aspart (novoLOG ASPART) SLIDING SCALE ACHS SC 11/23/17 07:00 12/23/17 06:59 11/27/17 17:45 7 UNITS Glucose (Glucose 40% Gel) 15-30 GRAMS 15 GRAMS... UD PRN PO 11/23/17 01:30 12/23/17 01:29 Glucose (Glucose Chew Tab) 4-8 Tablets 4 Tabl... UD PRN PO 11/23/17 01:30 12/23/17 01:29 Dextrose (Dextrose 50% 50ML Syringe) 25-50ML OF 50% DW IV FOR... UD PRN IV 11/23/17 01:30 12/23/17 01:29 Glucagon (Glucagon Inj) 1 mg UD PRN SQ 11/23/17 01:30 12/23/17 01:29 Insulin Glargine (Lantus Solostar Pen) 39 units DAILY SC 11/24/17 09:00 12/24/17 08:59 11/28/17 08:18 10 UNITS Epoetin Jean-Pierre 4000 units/Syringe 0.2 ml @ 1 mls/min TuThSa@1100 IV. 11/27/17 11:00 12/27/17 10:59 11/27/17 11:20 1 MLS/MIN Heparin Sodium (Porcine) (Heparin Sq 5000 Unit/0.5ml) 5,000 unit Q8 SQ 11/27/17 22:00 12/27/17 21:59 11/28/17 05:39 5,000 UNIT Impression (1) End-stage renal disease on hemodialysis (2) Azotemia (3) Dialysis AV fistula malfunction (4) Hyponatremia (5) Anemia ESRD on HD TTS in [place], [place] (dialyzes at hospital unit w/ Dr. Jabier Real ). AVF could not be used at outpatient dialysis unit due to short venous segment. Femoral catheter placed fro HD 11/23/17. Femoral catheter removed 11/25 and [facility] THC placed. Catheter with Qb ~280 yesterday. Now pulling with arterial needle to AVF this morning. 17 g placed without difficulty per dialysis nurse. Venous return to catheter. Overall, access is acceptable for dialysis. Once incision healed, AVF reasonable for 2 needles. At this time, plan to complete abridged dialysis treatment and discharge home with follow up in outpatient dialysis at [facility] tomorrow. PMH - AODM, BMI > 40, HTN, h/o CVA resulting L weakness/ataxic gait (on chronic anticoagulation), hypothyroidism, depression, former smoker Recommendations END STAGE RENAL DISEASE: -- HD tody with Qb and BP acceptable.- -- If treatment completed without complications patient may be discharged and follow up for scheduled outpatient treatment tomorrow as outpatient. -- Patient did not endorse significant symptoms of steal syndrome during hemodialysis today. HYPERTENSION: -- Blood pressure is currently acceptable. Continue current management ANEMIA: -- SHANI QHD
[2017-11-28] MEDS ORDERED: INSULIN GLARGINE SOLOSTAR 100 UNITS/ML 3 ML PEN SC ONE (12:15)
[2017-11-28] MEDS ORDERED: INSULIN GLARGINE SOLOSTAR 100 UNITS/ML 3 ML PEN SC SCH (12:30)
--- NOTE | 2017-11-28 14:02 | Pharmacy Progress Note ---
Pharmacy Glycemic Short Note 2 Date of Service Nov 28, 2017. OUTPATIENT ANTIDIABETIC REGIMEN: * Lantus 42 units qAM plus Humalog 7 units TID with meals and 4 units at bedtime (patient uncertain of exact dosing as she does not draw up her own insulin) ASSESSMENT: * Ms Ardon is a 57 y/o F admitted on 11/22/17 for fistula placement. She is currently NPO for possible perm cath exchange today. The patient has remained stable on Lantus 39 units daily and Novolog CF of 20 and carbohydrate ratio of 7 since 11/24/17. * This morning, the patient was made NPO and was given 10 units of Lantus for a fasting blood sugar of 92 mg/dL. Based upon previous data where the patient has missed several meals and was stable on Lantus 39 units, an additional 15 units was given with lunch. PLAN FOR INPATIENT GLYCEMIC CONTROL: * Basal insulin * Lantus 39 units SQ daily * Bolus insulin * NovoLog per scale ACHS or Q6hrs while NPO * Goal Range: Low 110 mg/dL - High 140 mg/dL * Correction Factor: 20 mg/dL/unit * Nutritional / Prandial insulin per carb ratio of 1 unit per 7 grams CHO consumed PLAN FOR DISCHARGE: * Patient's HbA1C cannot be utilized to establish control of her blood sugar since she is a dialysis patient. Monitor blood sugar via accucheck and establish control via this method.
--- NOTE | 2017-11-28 14:29 | DIAGNOSTIC IMAGING REPORT ---
DUPLEX HEMODIALYSIS ACCESS CLINICAL HISTORY: AVF pain, r/o infiltration; ?steal syndrome COMPARISON STUDY: 11/26/2017 FINDINGS: Color-flow and spectral waveform analysis was performed. The cephalic vein is patent. The dialysis fistula is patent. The radial and ulnar arteries demonstrated low velocity dampened flow. This may be indicative of a steal type phenomena. Within the antecubital fossa, there is a small 8 mm nonvascular fluid collection which likely represents a small hematoma or abscess. The technologist reports that at this site, the skin appeared pusy. IMPRESSION: 1. The patient's dialysis fistula is patent 2. The radial and ulnar arteries demonstrate a low velocity dampened flow. This may be indicative of a steal type phenomena 3. 8 mm nonvascular fluid collection within the antecubital fossa, likely representing a small hematoma or abscess. Electronically signed by: Fredis Dooley M.D. 11/28/2017 2:27 PM Dictated Date/Time: 11/28/2017 2:22 PM
[2017-11-28] MEDS ORDERED: FENTANYL CITRATE INJ 50 MCG/1 ML 2 ML VIAL ONE (14:34)
[2017-11-28] MEDS ORDERED: MIDAZOLAM HCL 1 MG/ML 2ML VIAL ONE ×2 (14:34→15:30)
[2017-11-28] MEDS ORDERED: HEPARIN SOD (PORCINE) 5000 UNIT/ML 1 ML VIAL ONE (14:47)
[2017-11-28] MEDS ORDERED: CLINDAMYCIN 600 MG/54 ML D5W 54 ML IV SCH (15:00)
[2017-11-28] MEDS ORDERED: LIDOCAINE HCL 1% 20 ML VIAL SQ ONE (15:33)
[2017-11-28] MEDS ORDERED: LABETALOL HCL IV 5 MG/ML 20ML IV ONE (15:47)
--- NOTE | 2017-11-28 15:53 | [facility] Operative Report ---
Operative Report Operative Date Nov 28, 2017. Pre-Operative Diagnosis Malfunctioning Perm Catheter Post-Operative Diagnosis Same Procedure(s) Performed Exchange of Perm Catheter Surgeon Dr. Meza Repatcher Surgeon(s) None Estimated Blood Loss 5 Findings TIP IN PROXIMAL SVC Specimens Explant Perm Catheter Anesthesia MAC Complication(s) None Disposition Recovery Room / PACU Indications This is a 57-year-old female who had a PermCath inserted and the left internal jugular vein three days prior. She is having difficulty with her runs with poor flows through the catheter. It was decided to replace the catheter with a longer one. I have discussed the risks options and benefits of the procedure with the patient and her sister. The patient' sister understands the risks options and benefits and agrees to the procedure. Description of Procedure Patient was takent to the angio suite and placed in the supine position. The left side of the neck, catheter and chest wall were prepped and draped in a sterile manner. Local anesthesia was then administered to the appropriate areas. A stiffened guidewire was then passed centrally under fluoroscopic imaging through the old permcath. The old 19 cm permcath was removed after freeing up the dacron cuff of the permcath using blunt and sharp dissection. A Kumpe catheter was then inserted. This stiffened Glidewire was exchanged to a Amplatz stiff wire. A new 23cm permcath was inserted without difficulty. The catheter was sutured in placed. Both ports aspirated and flushed easily and were then packed with heparin. A sterile dressing was applied to the catheter. The patient left the angio suite in good condition and tolerated the procedure well. I attest to the content of the Intraoperative Record and any orders documented therein. Any exceptions are noted below.
[2017-11-28] MEDS ORDERED: ATROPINE SULFATE 0.1 MG/ML 5ML SYR IV PRN (16:00)
[2017-11-28] MEDS ORDERED: EpHEDrine SULFATE INJ 50 MG/ML AMP IV PRN (16:00)
[2017-11-28] MEDS ORDERED: HEPARIN SOD (PORCINE) 5000 UNIT/ML 1 ML VIAL IV ONE (16:01)
--- NOTE | 2017-11-28 16:32 | Anesthesiology Progress Note ---
Anesthesia Post Op Note Date & Time Nov 28, 2017 at 16:31 Vital Signs Pain Intensity: 0 Vital Signs Past 12 Hours Date Time Temp Pulse Resp B/P (MAP) Pulse Ox O2 Delivery O2 Flow Rate FiO2 11/28/17 16:15 86 19 121/58 98 Oxymask 4 11/28/17 16:05 89 19 117/62 99 Oxymask 4 11/28/17 15:58 36.3 88 20 116/69 100 Oxymask 10 11/28/17 14:51 36.8 82 18 102/57 (72) 96 Room Air 11/28/17 12:20 36.9 88 130/53 (78) 11/28/17 11:50 90 101/45 11/28/17 11:45 90 82/38 11/28/17 11:30 102 105/49 11/28/17 11:15 93 98/46 11/28/17 11:00 99 96/61 11/28/17 10:45 97 101/52 11/28/17 10:30 86 118/71 11/28/17 10:15 95 129/52 11/28/17 10:00 80 151/73 11/28/17 09:45 78 130/60 11/28/17 09:32 78 142/65 11/28/17 09:12 36.8 79 146/60 (88) 11/28/17 08:00 Room Air 11/28/17 07:29 36.7 88 20 111/67 (82) 96 Room Air Notes Mental Status: alert / awake / arousable, participated in evaluation Pt Amnestic to Procedure: Yes Nausea / Vomiting: adequately controlled Pain: adequately controlled Airway Patency, RR, SpO2: stable & adequate BP & HR: stable & adequate Hydration State: stable & adequate Anesthetic Complications: no major complications apparent
[2017-11-28] MEDS: SERTRALINE HCL 50 MG TAB PO SCH (20:57)
[2017-11-28] MEDS: PRAMIPEXOLE DIHYDROCHLORIDE 0.25MG TAB PO SCH (20:57)
--- NOTE | 2017-11-28 21:01 | Progress Note ---
Subjective Date of Service: Nov 28, 2017. Subjective Pt evaluation today including: conversation w/ patient, physical exam, chart review, lab review, review of studies, review of inpatient medication list Resting comfortably in bed No concerns at this time Review of Systems Constitutional: No see HPI, No fever, No chills, No sweats, No weight loss, No weakness, No fatigue, No problem reported Eyes: No see HPI, No worsening of vision, No eye pain, No redness, No discharge , No diplopia, No problem reported ENT: No see HPI, No hearing loss, No unusual epistaxis, No nasal symptoms, No sore throat, No tinnitus, No dental problems, No trouble swallowing, No problem reported Respiratory: No see HPI, No cough, No sputum, No wheezing, No shortness of breath, No dyspnea on exertion, No dyspnea at rest, No hemoptysis, No problem reported Cardiac: No see HPI, No chest pain, No orthopnea, No PND, No edema, No claudication, No palpitations, No problem reported Abdomen: No see HPI, No pain, No nausea, No vomiting, No diarrhea, No constipation, No GI bleeding, No problem reported Musculoskeletal: No see HPI, No joint pain, No muscle pain, No swelling, No calf pain, No problem reported Female : No see HPI, No dysuria, No urinary frequency, No hematuria, No incontinence, No abnormal vaginal bleeding, No vaginal discharge, No problem reported Neurologic: No see HPI, No memory loss, No paralysis, No weakness, No numbness/ tingling, No vertigo, No balance problems, No problem reported Psychiatric: No see HPI, No depression symptoms, No anxiety, No insomnia, No substance abuse, No problem reported Skin: No see HPI, No rash, No itch, No new/changing skin lesions, No color change, No bleeding, No problem reported Objective Vital Signs Date Time Temp Pulse Resp B/P (MAP) Pulse Ox O2 Delivery O2 Flow Rate FiO2 11/28/17 20:50 37.0 90 18 159/91 (113) 97 Room Air 11/28/17 19:48 36.9 94 20 162/99 (120) 98 Room Air 11/28/17 19:00 36.6 98 20 137/71 (93) 97 Room Air 11/28/17 17:46 90 20 135/66 (89) 98 Room Air 11/28/17 17:15 36.9 87 16 147/57 (87) 96 Room Air 11/28/17 17:00 97 Room Air 11/28/17 16:45 36.9 85 16 129/65 (86) 97 Room Air 11/28/17 16:25 36.6 87 15 142/67 98 Oxymask 4 11/28/17 16:15 86 19 121/58 98 Oxymask 4 11/28/17 16:05 89 19 117/62 99 Oxymask 4 11/28/17 15:58 36.3 88 20 116/69 100 Oxymask 10 11/28/17 14:51 36.8 82 18 102/57 (72) 96 Room Air 11/28/17 12:20 36.9 88 130/53 (78) 11/28/17 11:50 90 101/45 11/28/17 11:45 90 82/38 11/28/17 11:30 102 105/49 11/28/17 11:15 93 98/46 11/28/17 11:00 99 96/61 11/28/17 10:45 97 101/52 11/28/17 10:30 86 118/71 11/28/17 10:15 95 129/52 11/28/17 10:00 80 151/73 11/28/17 09:45 78 130/60 11/28/17 09:32 78 142/65 11/28/17 09:12 36.8 79 146/60 (88) 11/28/17 08:00 Room Air 11/28/17 07:29 36.7 88 20 111/67 (82) 96 Room Air 11/27/17 23:41 36.8 96 19 116/65 (82) 95 Room Air 11/27/17 23:34 Room Air Physical Exam General Appearance: WD/WN, no apparent distress Eyes: normal inspection, PERRL, EOMI, sclerae normal Neck: supple, no adenopathy, thyroid normal, no JVD Respiratory/Chest: chest non-tender, lungs clear, normal breath sounds, no respiratory distress Cardiovascular: regular rate, rhythm, no edema, no gallop, no JVD Abdomen: normal bowel sounds, non tender, soft, no organomegaly Extremities: normal range of motion, non-tender, normal inspection, no pedal edema Neurologic/Psychiatric: no motor/sensory deficits, alert, normal mood/affect, oriented x 3 Skin: normal color, warm/dry, no rash Lymphatic: no adenopathy Laboratory Results Last 24 Hours Test 11/28/17 07:43 11/28/17 14:59 11/28/17 16:01 Bedside Glucose 92 mg/dl 86 mg/dl 103 mg/dl Assessment and Plan 57 yo F w/ T2DM, CVA ,hypothyroidism, recurrent UTI, CKD stage iv on dialysis , obesity, Afib (on Coumadin), CAD, HTN, HLD, Depression presenting w/ malfunctioning AV fistula while attempting to receive scheduled Dialysis treatment End-stage renal disease/AVF malfunction - Nephrology consulted, urgent dialysis needed as creatinine 8 upon admission - LUE doppler - L arm AVF is patent, vascular surg consulted for fistula eval - Fem cath placed temp for dialysis, removed and replaced with permacath on 11/25 - Unable to optimize dialysis via permacath, vascular surg to reval - Permacath exchange 11/28 - Pt also reports pain at AVF site, US determines ?steal syndrome Atrial fibrillation - Rate controlled - Metoprolol and Coumadin currently held Hypothyroidism -Continue Synthroid T2DM - Insulin sliding scale - Glycemic consult Depression - Continue Zoloft CAD/hyperlipidemia/TN - Continue statin DVT Prophaylxis - SCD's - Coumadin held as may need vascular procedure, heparin SC at this time Full code
[2017-11-29] VITALS (20 sets, daily range): BP systolic 116–218; BP diastolic 50–97; PULSE 69–111; TEMP 36.6–37.6; O2SAT 90–96
[2017-11-29] MEDS: HEPARIN SOD 5000 UNIT/0.5 ML CARP SQ SCH ×3 (05:40→22:23)
[2017-11-29] MEDS: LEVOTHYROXINE 25 MCG TAB PO SCH (05:42)
[2017-11-29] MEDS: INSULIN ASPART 100 UNITS/ML 3 ML PEN SC SCH ×4 (08:56→22:22)
[2017-11-29] MEDS: INSULIN GLARGINE SOLOSTAR 100 UNITS/ML 3 ML PEN SC SCH (08:56)
[2017-11-29] MEDS: ATORVASTATIN 20 MG TAB PO SCH (08:57)
[2017-11-29] MEDS ORDERED: HEPARIN SOD (PORCINE) 1000 UNIT/ML 10 ML VIAL IV SCH (09:30)
--- NOTE | 2017-11-29 09:42 | Nephrology Progress Note ---
Nephrology Progress Note Date of Service Nov 29, 2017. Chief Complaint ESRD Subjective No acute events overnight. Zarina was seen and evaluated during hemodialysis this morning. Catheter intact without evidence of bruising. Zarina denies significant shoulder pain. She reports some persistent numbness in her right hand. Qb appropriate via TDC. Review of Systems A complete review of systems was performed. Pertinent positives are noted above. All other systems are negative. Vital Signs Last 8 Hrs Date Time Temp Pulse Resp B/P (MAP) Pulse Ox O2 Delivery O2 Flow Rate FiO2 11/29/17 07:06 37.1 86 20 151/83 (105) 96 11/29/17 04:50 36.9 88 20 127/69 (88) 96 Room Air Last Recorded Weight Weight (Kilograms): 110.700 Physical Exam General Appearance: no apparent distress, + obese Head: normocephalic, atraumatic Eyes: normal inspection, sclerae normal ENT: normal ENT inspection, pharynx normal Neck: supple, no JVD, + pertinent finding ([facility] TDC with minimal surrounding bruising and clean exit site) Respiratory/Chest: lungs clear, no respiratory distress, no accessory muscle use Cardiovascular: regular rate, rhythm, no gallop Abdomen/GI: non tender, soft Extremities/Musculoskelatal: no pedal edema, + pertinent finding (RBC AVF with thrill and bruit, healing surgical incision with mild tenderness, +1 radial pulse) Neurologic/Psych: alert, normal mood/affect Family History Mother and sister both w/ ESRD on IHD due to DM Social History Smokeless Tobacco Use: No Alcohol Use: none Drug Use: none Occupation: disabled . Lives in [place], [place]. 3 children in good health. College education. 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 Laboratory Results Past 24 Hours Test 11/28/17 11:23 11/28/17 13:08 11/28/17 14:59 11/28/17 16:01 Bedside Glucose 89 mg/dl (70-90) 85 mg/dl (70-90) 86 mg/dl (70-90) 103 mg/dl (70-90) Test 11/28/17 16:46 11/28/17 20:25 11/29/17 07:38 Bedside Glucose 86 mg/dl (70-90) 155 mg/dl (70-90) 178 mg/dl (70-90) Allergies Coded Allergies: Oxycodone (Verified Allergy, Intermediate, HIVES, 11/14/17) PER [facility] Sulfa Antibiotics (Verified Allergy, Intermediate, HIVES, 11/14/17) PER [facility] Cephalexin (Verified Allergy, Mild, HIVES, 11/14/17) Hydrochlorothiazide w/Triamterene (Verified Allergy, Unknown, UNKNOWN, ) Sulfonylureas (Verified Allergy, Unknown, UNKNOWN, 11/14/17) Uncoded Allergies: CARBONIC (Allergy, Unknown, UNKNOWN, 10/24/17) CRBONIC ANHYDRASE INHIBITORS Medications Current Inpatient Medications Medications (Trade) Dose Ordered Sig/Kimmie Route Start Time Stop Time Status Last Admin Dose Admin Acetaminophen (Tylenol Tab) 650 mg Q4H PRN PO 11/22/17 23:30 12/22/17 23:29 11/28/17 23:15 650 MG Al Hydrox/Mg Hydrox/Simethicone (Maalox Max Susp) 15 ml Q4H PRN PO 11/22/17 23:30 12/22/17 23:29 Magnesium Hydroxide (Milk Of Magnesia Susp) 30 ml Q12H PRN PO 11/22/17 23:30 12/22/17 23:29 Ondansetron HCl (Zofran Inj) 4 mg Q6H PRN IV 11/22/17 23:30 12/22/17 23:29 Atorvastatin Calcium (Lipitor Tab) 40 mg DAILY PO 11/23/17 09:00 12/23/17 08:59 11/29/17 08:57 40 MG Levothyroxine Sodium (Synthroid Tab) 25 mcg DAILYBB PO 11/23/17 06:00 12/23/17 05:59 11/29/17 05:42 25 MCG Pramipexole Dihydrochloride (miraPEX TAB) 0.25 mg HS PO 11/23/17 21:00 12/23/17 20:59 11/28/17 20:57 0.25 MG Sertraline HCl (Zoloft Tab) 37.5 mg HS PO 11/23/17 21:00 12/23/17 20:59 11/28/17 20:57 37.5 MG Miscellaneous Information (Consult Glycemic Management Pharmacy) 1 ea DAILY PRN N/A 11/23/17 01:27 12/23/17 01:26 Insulin Aspart (novoLOG ASPART) SLIDING SCALE ACHS SC 11/23/17 07:00 12/23/17 06:59 11/29/17 08:56 9 UNITS Glucose (Glucose 40% Gel) 15-30 GRAMS 15 GRAMS... UD PRN PO 11/23/17 01:30 12/23/17 01:29 Glucose (Glucose Chew Tab) 4-8 Tablets 4 Tabl... UD PRN PO 11/23/17 01:30 12/23/17 01:29 Dextrose (Dextrose 50% 50ML Syringe) 25-50ML OF 50% DW IV FOR... UD PRN IV 11/23/17 01:30 12/23/17 01:29 Glucagon (Glucagon Inj) 1 mg UD PRN SQ 11/23/17 01:30 12/23/17 01:29 Insulin Glargine (Lantus Solostar Pen) 39 units DAILY SC 11/24/17 09:00 12/24/17 08:59 11/29/17 08:56 39 UNITS Epoetin Jean-Pierre 4000 units/Syringe 0.2 ml @ 1 mls/min TuThSa@1100 IV. 11/27/17 11:00 12/27/17 10:59 11/27/17 11:20 1 MLS/MIN Heparin Sodium (Porcine) (Heparin Sq 5000 Unit/0.5ml) 5,000 unit Q8 SQ 11/27/17 22:00 12/27/17 21:59 11/29/17 05:40 5,000 UNIT Heparin Sodium (Porcine) (Heparin Iv Bolus) 1,500 unit 0930 IV 11/29/17 09:30 11/29/17 12:00 Impression (1) End-stage renal disease on hemodialysis (2) Azotemia (3) Dialysis AV fistula malfunction (4) Hyponatremia (5) Anemia ESRD on HD TTS in [place], [place] (dialyzes at hospital unit w/ Dr. Jabier Real ). AVF could not be used at outpatient dialysis unit due to short venous segment. There is also concern for possible steal syndrome. [facility] TDC exchanged yesterday for 23 cm catheter. Patient tolerating dialysis well this morning with acceptable Qb. If TDC functions well for HD today, patient may be discharged from a nephrology perspective to resume outpatient HD as scheduled at [facility]. Patient will require close outpatient follow up with vascular surgery regarding AVF. PMH - AODM, BMI > 40, HTN, h/o CVA resulting L weakness/ataxic gait (on chronic anticoagulation), hypothyroidism, depression, former smoker Recommendations END STAGE RENAL DISEASE: -- HD tody with Qb and BP acceptable. -- If treatment completed without complications patient may be discharged and follow up for scheduled outpatient HD TTS at [facility] HYPERTENSION: -- Blood pressure is currently acceptable. Continue current management ANEMIA: -- SHANI QHD
[2017-11-29] MEDS: EPOETIN ALFA INJ 4,000 UNITS in SYRINGE 0 ML IV. SCH (11:05)
--- NOTE | 2017-11-29 16:54 | Progress Note ---
Subjective Date of Service: Nov 29, 2017. Subjective Pt evaluation today including: conversation w/ patient, physical exam, chart review, lab review, review of studies, review of inpatient medication list Resting comfortably in bed Undergoing dialysis at this time Review of Systems Constitutional: No fever, No chills, No sweats, No weight loss Respiratory: No cough, No sputum, No wheezing, No shortness of breath, No dyspnea on exertion Cardiac: No chest pain, No orthopnea, No PND, No edema, No claudication Abdomen: No pain, No nausea, No vomiting, No diarrhea, No constipation Musculoskeletal: No joint pain, No muscle pain, No swelling, No calf pain Female : No dysuria, No urinary frequency, No hematuria, No incontinence Neurologic: No memory loss, No paralysis, No weakness, No numbness/tingling Psychiatric: No depression symptoms, No anhedonism, No anxiety, No insomnia Heme: No abnormal bleeding/bruising, No clotting problems Skin: No rash, No itch Objective Vital Signs Date Time Temp Pulse Resp B/P (MAP) Pulse Ox O2 Delivery O2 Flow Rate FiO2 11/29/17 16:14 37.5 86 20 116/64 (81) 96 Room Air 11/29/17 12:13 36.6 96 184/97 (126) 11/29/17 12:00 84 145/88 11/29/17 11:45 84 145/85 11/29/17 11:30 96 173/69 11/29/17 11:15 69 167/50 11/29/17 11:00 97 160/77 11/29/17 10:45 92 201/78 11/29/17 10:30 93 179/69 11/29/17 10:15 93 175/86 11/29/17 10:00 88 179/69 11/29/17 09:45 94 192/89 11/29/17 09:30 95 183/88 11/29/17 09:15 90 177/84 11/29/17 09:08 36.6 99 218/88 (131) 11/29/17 07:30 96 Room Air 11/29/17 07:06 37.1 86 20 151/83 (105) 96 11/29/17 04:50 36.9 88 20 127/69 (88) 96 Room Air 11/28/17 23:45 Room Air 11/28/17 22:48 36.9 91 20 100/68 (79) 96 Room Air 11/28/17 21:49 37.1 89 18 160/76 (104) 97 Room Air 11/28/17 20:50 37.0 90 18 159/91 (113) 97 Room Air 11/28/17 19:48 36.9 94 20 162/99 (120) 98 Room Air 11/28/17 19:00 36.6 98 20 137/71 (93) 97 Room Air 11/28/17 17:46 90 20 135/66 (89) 98 Room Air 11/28/17 17:15 36.9 87 16 147/57 (87) 96 Room Air 11/28/17 17:00 97 Room Air Physical Exam General Appearance: WD/WN, no apparent distress Eyes: normal inspection, PERRL, EOMI, sclerae normal Neck: supple, no adenopathy, thyroid normal, no JVD Respiratory/Chest: chest non-tender, lungs clear, normal breath sounds, no respiratory distress Cardiovascular: regular rate, rhythm, no edema, no gallop, no JVD Abdomen: normal bowel sounds, non tender, soft, no organomegaly Extremities: normal range of motion, non-tender, normal inspection, + pedal edema Neurologic/Psychiatric: no motor/sensory deficits, alert, normal mood/affect, oriented x 3 Laboratory Results Last 24 Hours Test 11/28/17 20:25 11/29/17 07:38 Bedside Glucose 155 mg/dl 178 mg/dl Assessment and Plan 57 yo F w/ T2DM, CVA ,hypothyroidism, recurrent UTI, CKD stage iv on dialysis , obesity, Afib (on Coumadin), CAD, HTN, HLD, Depression presenting w/ malfunctioning AV fistula while attempting to receive scheduled Dialysis treatment End-stage renal disease/AVF malfunction - Nephrology consulted, urgent dialysis needed as creatinine 8 upon admission - LUE doppler - L arm AVF is patent, vascular surg consulted for fistula eval - Fem cath placed temp for dialysis, removed and replaced with permacath on 11/25 - Unable to optimize dialysis via permacath, vascular surg to reval - Permacath exchange 11/28 - Pt also reports pain at AVF site, US determines ?steal syndrome - Dialysis through permacath 11/29 successful, likely DC in next 24 hrs Atrial fibrillation - Rate controlled - Metoprolol and Coumadin cont Hypothyroidism -Continue Synthroid T2DM - Insulin sliding scale - Glycemic consult Depression - Continue Zoloft CAD/hyperlipidemia/TN - Continue statin DVT Prophaylxis - SCD's - Coumadin Full code
[2017-11-29] MEDS ORDERED: WARFARIN SOD 5 MG TAB PO ONE (17:30)
[2017-11-29] MEDS: PRAMIPEXOLE DIHYDROCHLORIDE 0.25MG TAB PO SCH (22:23)
[2017-11-29] MEDS: SERTRALINE HCL 50 MG TAB PO SCH (22:27)
[2017-11-30] MEDS: ACETAMINOPHEN 325 MG TAB PO PRN ×2 (00:47→06:07)
[2017-11-30] MEDS: HEPARIN SOD 5000 UNIT/0.5 ML CARP SQ SCH (06:01)
[2017-11-30] MEDS: LEVOTHYROXINE 25 MCG TAB PO SCH (06:07)
[2017-11-30 07:59] VITALS: BP 136/81; PULSE 97; TEMP 37.1; O2SAT 94
[2017-11-30] MEDS: ATORVASTATIN 20 MG TAB PO SCH (08:41)
--- NOTE | 2017-11-30 09:45 | Pharmacy Progress Note ---
Glycemic Control Progress Note Date of Service Nov 30, 2017. Scope Glycemic Pharmacist consulted for glycemic control to write orders per [facility] inpatient glycemic control protocol. Objective Accuchecks BSG (last 24hrs): Test 11/29/17 11:57 11/29/17 16:27 11/29/17 20:02 11/30/17 07:35 Bedside Glucose 127 mg/dl (70-90) 104 mg/dl (70-90) 144 mg/dl (70-90) 102 mg/dl (70-90) HbA1c: Test 11/23/17 05:32 Hemoglobin A1c 7.3 % (4.5-5.6) H Recent Pertinent Medications The patient is currently receiving: * Basal insulin: Lantus 39 units every 24 hours * Correctional Insulin: Novolog Correction per scale ACHS Goal Range: Low 110 mg/dL - High 140 mg/dL Correction Factor: 20 mg/dL/unit * Prandial insulin: Per carb ratio of 1 unit per 7 grams CHO consumed Outpatient Anti-Diabetic Meds Lantus 42 units in the morning and Humalog 7 units TIDM plus 4 at bedtime Assessment & Plan ASSESSMENT: * See progress note from 11/23/17 for more background info, in short: * Pt receiving SQ basal bolus insulin regimen for hyperglycemia secondary to baseline DM (outpatient regimen on hold) and yesterday had a perm cath exchange. * Patient is currently receiving an average of 60 units of insulin per day * 39 units of basal insulin * 21 units of prandial/correctional insulin * BSGs ranging 104 - 178 mg/dl over the past 24hrs * Changes needed to insulin regimen: * AM Fasting BSG = 102 mg/dl. This is in goal range for patient based on inpatient targets and co-morbidities. Therefore Basal insulin will be continued. Fasting yesterday was high due to NPO status yesterday * Post-prandial BSGs are in range therefore no changes needed to CF/CR. * Total daily dose = ~60 units. This dosing is yielding adequate glycemic control. PLAN FOR INPATIENT GLYCEMIC CONTROL: * Continuing Lantus 39 units SQ qAM * Continuing correction factor of 20 mg/dl/unit * Continuing carb ratio of 1 unit per 7 grams CHO consumed * Continuing goal range of Low 110 mg/dL - High 140 mg/dL RECOMMENDATIONS FOR DISCHARGE: * see discharge recommendations from 11/24/17 Thank you.
[2017-11-30] MEDS: INSULIN ASPART 100 UNITS/ML 3 ML PEN SC SCH (10:44)
[2017-11-30] MEDS: INSULIN GLARGINE SOLOSTAR 100 UNITS/ML 3 ML PEN SC SCH (10:45)
[2017-11-30 11:49] VITALS: BP 136/81; PULSE 97; TEMP 37.1; O2SAT 94
[2017-11-30] MEDS ORDERED: INSDGIPEN SC (12:12)
--- NOTE | 2017-11-30 12:15 | Discharge Instructions ---
Discharge Instructions Date of Service Nov 30, 2017. Admission Reason for Admission: Fistula Placement Discharge Discharge Diagnosis / Problem: Fistula malfunction Discharge Goals Goal(s): Decrease discomfort, Improve function, Increase independence, Improve disease control, Learn about illness, Diagnostic testing, Therapeutic intervention Activity Recommendations Activity Limitations: resume your previous activity Exercise/Sports Limitations: as tolerated . Instructions / Follow-Up Instructions / Follow-Up Patient to be discharged back to [facility] Please resume medications as noted Lantus dose reduced to 38 units once daily Patient to follow up with Dialysis at [facility] Patient to follow up with Dr Meza in 1 week Patient to follow up with Dr Connolly in 1-2 weeks Current Hospital Diet Patient's current hospital diet: Renal Diet, Diabetes Type 2 Diet Discharge Diet Recommended Diet: Diabetes Type 2 Diet, Renal Diet Procedures Procedures Performed: Exchange of Perm Catheter Pending Studies Studies pending at discharge: no Laboratory Results Hemoglobin A1c Test 11/23/17 05:32 Range/Units Estimated Average Glucose 163 mg/dl Hemoglobin A1c 7.3 H 4.5-5.6 % Medical Emergencies . Who to Call and When: Medical Emergencies: If at any time you feel your situation is an emergency, please call 911 immediately. . Non-Emergent Contact Non-Emergency issues call your: Primary Care Provider Call Non-Emergent contact if: you have any medication questions . . "Provider Documentation" section prepared by Shakeel Pizarro. . VTE Core Measure Inpt VTE Proph given/why not?: Warfarin (Coumadin)
--- NOTE | 2017-11-30 14:44 | Discharge Summary ---
Discharge Summary Date of Service Nov 30, 2017. Discharge Summary Admission Date: Nov 22, 2017 at 21:13 Discharge Date: Nov 30, 2017 Discharge Disposition: halfway facility Principal Diagnosis: Malfunctioning fistula Immunizations: Have You Had Influenza Vaccine: Unknown History of Tetanus Vaccine?: Unknown History of Pneumococcal: Unknown History of Hepatitis B Vaccine: Unknown Consultations: Nephrology Vascular surgery Medication Reconciliation New Medications: Insulin Glargine (Lantus Solostar) 100 Unit/Ml Inj 39 UNITS SC DAILY for 30 Days, #1 BOX Continued Medications: Acetaminophen Tab (Tylenol) 325 Mg Tab 650 MG PO Q4 PRN for Pain, TAB Atorvastatin (Lipitor) 40 Mg Tab 40 MG PO DAILY, TAB Bisacodyl (Bisacodyl) 5 Mg Tab 1 TAB PO UD PRN for Constipation Bisacodyl (Biscolax) 10 Mg Sup DAILY PRN for Constipation Bumetanide (Bumex) 2 Mg Tab 1 TAB PO DAILY Calcium Carbonate (Tums) 500 Mg Chew 2 TAB PO TIDM Cholecalciferol (Vitamin D3) 2,000 Unit Tab 1 TAB PO DAILY Docusate Sodium (Docusate Sodium) 100 Mg Cap 1 CAP PO BID Levothyroxine Sodium (Levothyroxine Sodium) 25 Mcg Tab 1 TAB PO DAILY Levothyroxine Sodium (Levothyroxine Sodium) 200 Mcg Tab 1 TAB PO DAILY TOTAL OF 225MCG Lidocaine-Prilocaine (Lidocaine/Prilocaine) 1 Cre Cre 1 APPLN TOP 3XWK, #30 GM 1 Refill TO DIALYSIS SITE , , FRIDAY Melatonin (Melatonin) 3 Mg Tab 2 TABS PO QPM Metoprolol Tartrate (Lopressor) 50 Mg Tab 1 TAB PO PM Pantoprazole (Protonix) 40 Mg Tab 1 TAB PO DAILY Polyethylene Glycol 3350 (Miralax) 1 Pow Pow 17 GM PO DAILY, #527 GM Pramipexole (Mirapex) 0.125 Mg Tab 0.25 MG PO HS, TAB Senna (Senokot) 8.6 Mg Tab 1 TAB PO HS Sertraline Hcl (Zoloft) 25 Mg Tab 37.5 MG PO HS, TAB Tramadol (Ultram) 50 Mg Tab 50 MG PO Q4H PRN for Pain, #20 TAB Warfarin Sod (Jantoven) 3 Mg Tab 3 MG PO 4XWK Warfarin Sod (Coumadin) 2.5 Mg Tab 1 TAB PO 3XWK [Humalog] () 4 UNITS SQ HS [humalog] () 7 UNITS SQ TIDM Discontinued Medications: Insulin Glargine (Lantus) 100 Unit/Ml Inj 42 SC QAM, VIAL Discharge Exam Review of Systems: Constitutional: No fever, No chills, No sweats, No weakness ENT: No hearing loss, No unusual epistaxis, No nasal symptoms, No sore throat Respiratory: No cough, No sputum, No wheezing, No shortness of breath Cardiovascular: No chest pain, No orthopnea, No PND, No edema Abdomen: No pain, No nausea, No vomiting, No diarrhea Musculoskeletal: No joint pain, No muscle pain, No swelling, No calf pain Genitourinary - Female: No dysuria, No urinary frequency, No urinary urgency , No urinary incontinence Neurologic: No memory loss, No paralysis, No weakness, No numbness/tingling Psychiatric: No depression symptoms, No anhedonism, No anxiety, No insomnia Endocrine: No fatigue, No excessive thirst Integumentary: No rash, No itch Physical Exam: General Appearance: WD/WN, no apparent distress Eyes: normal inspection, PERRL, EOMI, sclerae normal Neck: supple, no adenopathy, thyroid normal, no JVD Respiratory/Chest: chest non-tender, lungs clear, normal breath sounds, no respiratory distress Cardiovascular: regular rate, rhythm, no edema, no gallop, no JVD Abdomen / GI: normal bowel sounds, non tender, soft, no organomegaly Neurologic/Psychiatric: no motor/sensory deficits, alert, normal mood/affect , oriented x 3 Skin: normal color, warm/dry, no rash Lymphatic: no adenopathy Hospital Course 57 yo F w/ T2DM, CVA ,hypothyroidism, recurrent UTI, CKD stage iv on dialysis , obesity, Afib (on Coumadin), CAD, HTN, HLD, Depression presenting w/ malfunctioning AV fistula while attempting to receive scheduled dialysis treatment End-stage renal disease/AVF malfunction - Nephrology consulted, urgent dialysis needed as creatinine 8 upon admission - LUE doppler - L arm AVF is patent, vascular surg consulted for fistula eval - Fem cath placed temp for dialysis, removed and replaced with permacath on 11/25 - Unable to optimize dialysis via permacath, vascular surg to reval once again - Permacath exchange 11/28 - Pt reports pain at AVF site, US determines ?steal syndrome - Dialysis through permacath 11/29 successful, likely DC in next 24 hrs, will need to f/u with Dr Meza Atrial fibrillation - Rate controlled - Metoprolol and Coumadin cont Hypothyroidism -Continue Synthroid T2DM - Insulin sliding scale - Glycemic consult Depression - Continue Zoloft CAD/hyperlipidemia/TN - Continue statin DVT Prophaylxis - SCD's - Coumadin Full code Total Time Spent: Greater than 30 minutes This includes examination of the patient, discharge planning, medication reconciliation, and communication with other providers. Discharge Instructions Please refer to the electronic Patient Visit Report (Discharge Instructions) for additional information. Additional Copies To Marco Connolly M.D.
[2017-11-30] MEDS ORDERED: WARFARIN SOD 5 MG TAB PO SCH (16:00)
== END 2017-11-30 12:30 | DRG 314 ==
LOC: C.2E 21:13 → EDBEDREQ 11-27 14:41 → ENRESERV 11-27 14:45 → C.MS4W 11-27 15:54
PROVIDERS: ADMIT Internal Medicine; ATTEND Hospitalist
PROC: 04HK33Z Insertion of Infusion Device into Right Femoral Artery, Percutaneous Approach (ICD-10-PCS; principal; 2017-11-23)
PROC: 02HV33Z Insertion of Infusion Device into Superior Vena Cava, Percutaneous Approach (ICD-10-PCS; 2017-11-25)
PROC: 02HV33Z Insertion of Infusion Device into Superior Vena Cava, Percutaneous Approach (ICD-10-PCS; 2017-11-28)
PROC: 02PY33Z Removal of Infusion Device from Great Vessel, Percutaneous Approach (ICD-10-PCS; 2017-11-28)
DX: T82.41XA Breakdown (mechanical) of vascular dialysis catheter, initial encounter (principal); N18.6 End stage renal disease; I12.0 Hypertensive chronic kidney disease with stage 5 chronic kidney disease or end stage renal disease; Z68.41 Body mass index [BMI] 40.0-44.9, adult; T82.848A Pain due to vascular prosthetic devices, implants and grafts, initial encounter; E11.22 Type 2 diabetes mellitus with diabetic chronic kidney disease; E03.9 Hypothyroidism, unspecified; E66.9 Obesity, unspecified; I25.10 Atherosclerotic heart disease of native coronary artery without angina pectoris; I48.91 Unspecified atrial fibrillation; F32.9 Major depressive disorder, single episode, unspecified; G25.81 Restless legs syndrome; E78.5 Hyperlipidemia, unspecified; Z79.01 Long term (current) use of anticoagulants; Z79.4 Long term (current) use of insulin; Z79.899 Other long term (current) drug therapy; Z99.2 Dependence on renal dialysis; Z87.891 Personal history of nicotine dependence; Z83.3 Family history of diabetes mellitus; Z86.73 Personal history of transient ischemic attack (TIA), and cerebral infarction without residual deficits; Z88.2 Allergy status to sulfonamides; Z88.5 Allergy status to narcotic agent; Y84.1 Kidney dialysis as the cause of abnormal reaction of the patient, or of later complication, without mention of misadventure at the time of the procedure

== ENCOUNTER 2018-01-02 11:10 | Day surgery (SDC) | payer OTHER ==
[2017-12-30 09:22] VITALS: BMI 43.0
--- NOTE | 2017-12-30 10:24 | PAT Medication Instructions ---
Service Date Dec 30, 2017. Current Home Medication List Acetaminophen Tab (Tylenol), 650 MG PO Q4 PRN for Pain Atorvastatin (Lipitor), 40 MG PO QAM Bumetanide (Bumex), 1 TAB PO QAM Calcium Carbonate (Tums), 2 TAB PO TIDM Cholecalciferol (Vitamin D3), 1 TAB PO QAM Docusate Sodium (Docusate Sodium), 1 CAP PO BID Insulin Glargine (Lantus Solostar), 39 UNITS SC QAM Levothyroxine Sodium (Levothyroxine Sodium), 1 TAB PO DAILY Levothyroxine Sodium (Synthroid), 50 MCG PO QAM Lidocaine-Prilocaine (Lidocaine/Prilocaine), 1 APPLN TOP 3XWK Melatonin (Melatonin), 2 TABS PO QPM Metoprolol Tartrate (Lopressor) (Lopressor), 25 MG PO BID Pantoprazole (Protonix), 1 TAB PO QAM Polyethylene Glycol 3350 (Miralax), 17 GM PO DAILY Pramipexole (Mirapex), 0.25 MG PO HS Senna (Senokot), 1 TAB PO HS Sertraline Hcl (Zoloft), 37.5 MG PO HS Tramadol (Ultram), 50 MG PO Q4H PRN for Pain Warfarin Sod (Coumadin), 1 TAB PO QPM [Humalog], 4 UNITS SQ HS [humalog], 7 UNITS SQ TIDM Medication Instructions For Your Scheduled Surgery - Per surgeon/prescriber's instructions: Warfarin Sod (Coumadin), 1 TAB PO QPM - Hold the following medications 24 hours prior to surgery: Lidocaine-Prilocaine (Lidocaine/Prilocaine), 1 APPLN TOP 3XWK - Hold the following medications the morning of surgery: [humalog], 7 UNITS SQ TIDM Bumetanide (Bumex), 1 TAB PO QAM Calcium Carbonate (Tums), 2 TAB PO TIDM Cholecalciferol (Vitamin D3), 1 TAB PO QAM Docusate Sodium (Docusate Sodium), 1 CAP PO BID Polyethylene Glycol 3350 (Miralax), 17 GM PO DAILY - Take the following medications the morning of surgery with a sip of water OTHERWISE NOTHING TO EAT OR DRINK AFTER MIDNIGHT: Tramadol (Ultram), 50 MG PO Q4H PRN for Pain (may take if needed up to 4 hours prior to surgery) Levothyroxine Sodium (Synthroid) Pantoprazole (Protonix), 1 TAB PO QAM Atorvastatin (Lipitor), 40 MG PO QAM Acetaminophen Tab (Tylenol), 650 MG PO Q4 PRN for Pain (may take if needed up to 4 hours prior to surgery) Metoprolol Tartrate (Lopressor) (Lopressor), 25 MG PO BID - For Insulin Dependent Diabetic patients: Test blood sugar A.M. of surgery. - If Blood Sugar is GREATER THAN 150, take HALF of your regular dose of: Insulin Glargine (Lantus Solostar) - If Blood Sugar is LESS THAN 150, do not take any: Insulin Glargine ( Lantus Solostar) - Take the following medications as scheduled the night before surgery: [Humalog], 4 UNITS SQ HS [humalog], 7 UNITS SQ TIDM Tramadol (Ultram), 50 MG PO Q4H PRN for Pain Calcium Carbonate (Tums), 2 TAB PO TIDM Senna (Senokot), 1 TAB PO HS Sertraline Hcl (Zoloft), 37.5 MG PO HS Melatonin (Melatonin), 2 TABS PO QPM Docusate Sodium (Docusate Sodium), 1 CAP PO BID Acetaminophen Tab (Tylenol), 650 MG PO Q4 PRN for Pain Metoprolol Tartrate (Lopressor) (Lopressor), 25 MG PO BID - DO NOT take the following medications the night before surgery: Pramipexole (Mirapex), 0.25 MG PO HS If you have any questions please call us at [phone] or [phone] or [phone]
--- NOTE | 2017-12-31 05:52 | History and Physical ---
History & Physical Date of Service Dec 31, 2017. History & Physical Chief Complaint Open right arm fistula incision site History of Present Illness The patient is a 57 year old female who has a right upper arm fistula revision. The lower part of the incision has dehisced. She is now admitted for debridement of the wound. Coded Allergies: Oxycodone (Verified Allergy, Intermediate, HIVES, 10/24/17) PER [facility] Sulfa Antibiotics (Verified Allergy, Intermediate, HIVES, 10/24/17) [facility] Hydrochlorothiazide w/Triamterene (Verified Allergy, Unknown, UNKNOWN, 10/24/17) Sulfonylureas (Verified Allergy, Unknown, UNKNOWN, 10/24/17) Uncoded Allergies: CARBONIC (Allergy, Unknown, UNKNOWN, 10/24/17) CRBONIC ANHYDRASE INHIBITORS Home Medications Scheduled Atorvastatin (Lipitor), 40 MG PO DAILY Bumetanide (Bumex), 1 TAB PO DAILY Calcium Carbonate (Tums), 1 TAB PO DAILY Cholecalciferol (Vitamin D3), 1 TAB PO DAILY Docusate Sodium (Docusate Sodium), 1 CAP PO BID Insulin Glargine (Lantus), 42 SC QAM Levothyroxine Sodium (Levothyroxine Sodium), 1 TAB PO DAILY Levothyroxine Sodium (Levothyroxine Sodium), 1 TAB PO DAILY Lidocaine-Prilocaine (Lidocaine/Prilocaine), 1 APPLN TOP 3XWK Melatonin (Melatonin), 2 TABS PO QPM Metoprolol Tartrate (Lopressor), 1 TAB PO BID Polyethylene Glycol 3350 (Miralax), 17 GM PO DAILY Pramipexole (Mirapex), 0.25 MG PO HS Senna (Senokot), 2 TAB PO HS Sertraline Hcl (Zoloft), 37.5 MG PO HS Warfarin Sod (Jantoven), 3 MG PO DAILY [Humalog], 4 UNITS SQ HS Scheduled PRN Acetaminophen (Tylenol), 2 TAB PO Q6 PRN for Pain Acetaminophen Tab (Tylenol), 650 MG PO Q4 PRN for Pain Bisacodyl (Bisacodyl), 1 TAB PO UD PRN for Constipation [Bisacodyl Supp], 1 SUPP RE DAILY PRN for Constipation Surgical / Medical History Hx Abdominal Surgery: Yes (3 c-sections) Past Medical/Surgical History: Depression, Diabetes, Kidney Disease, Thyroid Disease Social History Smoking Status: Former Smoker Hx Tobacco Use In Past Year?: No Hx Alcohol Use - Type & Amnt: No Hx Substance Use -Type & Amnt: No Review of Systems Constitutional: No chills, No diaphoresis, No fever, No malaise, No weakness, No weight gain, No weight loss, No sweats, No fatigue, No problem reported Respiratory: No cough, No cyanosis, No RAMIREZ, No hemoptysis, No orthopnea, No PND , No short of breath, No sputum production, No stridor, No wheezing, No dyspnea , No problem reported Cardiovascular: No chest pain, No chest tightness, No chest pressure, No palpitations, No syncope, No diaphoresis, No edema, No intermittent claudication , No orthopnea, No cyanosis, No mumur, No lightheadedness, No paroxysmal nocturnal dyspnea, No problem reported Gastrointestinal: No abdominal pain, No constipation, No diarrhea, No nausea, No vomiting, No anorexia, No appetite changes, No belching, No flatulence, No food intolerance, No hematemesis, No hemorrhoids, No hematochezia, No stool changes, No heartburn, No indigestion, No dysphagia, No rectal bleeding, No problem reported Musculoskeletal: No back pain, No gout, No joint pain, No joint swelling, No muscle pain, No muscle stiffness, No muscle weakness, No neck pain, No problem reported Neurologic: No dizziness, No weakness, No headache, No lethargy, No numbness, No paresthesia, No pre-existing deficit, No seizures, No tics, No tingling, No tremors, No vertigo, No memory loss, No LOC, No problem reported Psychiatric: + depression Physical Exam Constitutional: General Apperance: overweight Level of Distress: NAD Ambulation: ambulating normally Psychiatric: Mental Status: active & alert, normal mood, normal affect Orientation: oriented except where noted, to time, to place, to person Memory: recent memory normal, remote memory normal Head: normocephalic Lungs: Auscultation: breath sounds normal Cardiovascular: Heart Auscultation: RRR Peripheral Pulses: Radial Pulse: normal on the left, normal on the right Femoral Pulse: normal on the left, normal on the right Abdomen: Inspection & Palpation: soft Musculoskeletal: normal Extremities: Upper Right: no cyanosis, no edema, no varicosities, no palpable cord, no clubbing, no ulcers, no mottling Upper Left: no cyanosis, no edema, no varicosities, no palpable cord, no clubbing, no ulcers, no mottling Lower Right: no cyanosis, no edema, no varicosities, no palpable cord, no clubbing, no ulcers, no mottling, pertinent finding (thrill in antecubital fossa ) Small open area in the lower part of the incision. No erythema or drainage seen Lower Left: no cyanosis, no edema, no varicosities, no palpable cord, no clubbing, no ulcers, no mottling Neurologic: Cranial Nerves: grossly intact Sensation: grossly intact Assessment and Plan Imp: Open right arm fistula wound Plan: Patient for irrigation and debridement of the right arm wound. I have discussed the risks options and benefits of the procedure with the patient. The patient understands the risks options and benefits and agrees to the procedure.
[~2018-01-02] VITALS: Ht 160 cm; Wt 110.9 kg
[~2018-01-02 11:10] MED LIST changes: -ACET-1256 PO; +ACET-1693 PO; -ACET325T96 PO; -BISA1TAB15 PO; -BISACODYL SUPP RE; +CEFAZOLIN 1000MG IV PUSH 7.5 ML IV SCH; -ENOX30IN4 SQ; -INSDGI SC; +INSDGIPEN SC; -LEVO25TA5 PO; +LEVO50TA PO; -METO-551 PO; +METO25TA56 PO; +PANT40TA PO; +PRAM0.1212 PO; -PRAM0.129 PO; +SODIUM CHLORIDE 0.9% 1000ML 1,000 ML IV SCH; -WARF3TAB6 PO
--- NOTE | 2018-01-02 12:02 | History & Physical Bridge Note ---
H&P Re-Evaluation Bridge Note: I have examined the patient, reviewed the History & Physical and in the interval since the performance of the History & Physical I have noted the following changes of clinical significance: No changes noted
[2018-01-02 12:14] VITALS: BP 166/60; PULSE 74; TEMP 36.5; O2SAT 98; Ht 160 cm; Wt 110.9 kg
[2018-01-02] MEDS ORDERED: LIDOCAINE HCL 1% 20 ML VIAL ONE (12:17)
[2018-01-02] MEDS ORDERED: GELATIN SPONGE 12-7MM ONE (12:17)
[2018-01-02] MEDS ORDERED: THROMBIN FOR SOLN 20000 UNIT KIT ONE (12:17)
[2018-01-02] MEDS ORDERED: HEPARIN SOD (PORCINE) 1000 UNIT/ML 10 ML VIAL ONE (12:17)
[2018-01-02] MEDS ORDERED: BUPIVACAINE/EPINEPHRINE 0.5% MPF 1:200,000 30 ML VIAL ONE (12:17)
[2018-01-02 12:33] LABS: PTT PATIENT 34.7 SECONDS (21.0-31.0)
[2018-01-02] MEDS ORDERED: DLC5 PO (12:38)
[2018-01-02] MEDS ORDERED: CLINDAMYCIN 600 MG/54 ML D5W IV SCH (12:45)
[2018-01-02] MEDS ORDERED: NURSING VERBAL MED ORDER ONE (12:45)
[2018-01-02 12:59] LABS: CREATININE 5.6 mg/dl (0.60-1.20); POTASSIUM 4.5 mmol/L (3.5-5.1)
[2018-01-02] MEDS ORDERED: MIDAZOLAM HCL 1 MG/ML 2ML VIAL ONE (13:23)
[2018-01-02] MEDS ORDERED: FENTANYL CITRATE INJ 50 MCG/1 ML 2 ML VIAL ONE (13:24)
--- NOTE | 2018-01-02 13:42 | [facility] Post Operative Brief Note ---
Immediate Operative Summary Operative Date Jan 02, 2018. Pre-Operative Diagnosis Wound dehiscence Post-Operative Diagnosis Wound dehiscence Procedure(s) Performed Debridement and closure of right arm wound Surgeon nusrat Locks Tender Surgeon(s) Sameera Mallory MD, Luann Daniels PAC Estimated Blood Loss 1cc Findings Consistent with Post-Op Diagnosis Specimens none Drains None Anesthesia Type MAC Complication(s) none Disposition Accompanied Pt To Recover: no Disposition:
--- NOTE | 2018-01-02 14:05 | Discharge Instructions ---
Discharge Instructions Date of Service Jan 02, 2018. Visit Reason for Visit: Right Arm Open Wound Discharge Discharge Diagnosis / Problem: Debridement and closure of right arm wound Discharge Goals Goal(s): Therapeutic intervention Activity Recommendations Activity Limitations: per Instructions/Follow-up section Anesthesia . Post Anesthesia Instructions: If you have had General Anesthesia or IV Sedation: * Do not drive today. * Resume driving when surgeon permits. * Do not make important decisions or sign legal documents today. * Call surgeon for: 1. Temperature elevations greater than 101 degrees F. 2. Uncontrollable pain. 3. Excessive bleeding. 4. Persistent nausea and vomiting. 5. Medication intolerance (nausea, vomiting or rash). * For nausea and vomiting use only clear liquids such as: tea, soda, bouillon until nausea subsides, then gradually increase diet as tolerated. * If you have any concerns or questions, call your surgeon's office. If physician is unavailable and it is an emergency, call 911 or go to the nearest emergency room. . Instructions / Follow-Up Instructions / Follow-Up Call [phone] to schedule a follow up appointment if one not already scheduled. ACTIVITY RECOMMENDATIONS: See Above SPECIAL CARE INSTRUCTIONS: Call your doctor if: * Temperature above 101 degrees * Pain not relieved by pain medicine ordered * There is increased drainage or redness from any incision * You have any unanswered questions or concerns. Diet Recommendations Recommended Home Diet: resume previous diet Procedures Procedures Performed: Debridement and closure of right arm wound Pending Studies Studies pending at discharge: no Medical Emergencies . Who to Call and When: Medical Emergencies: If at any time you feel your situation is an emergency, please call 911 immediately. . Non-Emergent Contact Non-Emergency issues call your: Surgeon . . "Provider Documentation" section prepared by Dayton Meza. .
[2018-01-02 14:08] VITALS: BP 112/53; PULSE 83; TEMP 36.7; O2SAT 95
--- NOTE | 2018-01-02 14:09 | Anesthesiology Progress Note ---
Anesthesia Post Op Note Date & Time Jan 02, 2018 at 14:09 Vital Signs Pain Intensity: 0 Vital Signs Past 12 Hours Date Time Temp Pulse Resp B/P (MAP) Pulse Ox O2 Delivery O2 Flow Rate FiO2 01/02/18 12:14 36.5 74 16 166/60 (95) 98 Room Air Notes Mental Status: alert / awake / arousable, participated in evaluation Pt Amnestic to Procedure: Yes Nausea / Vomiting: adequately controlled Pain: adequately controlled Airway Patency, RR, SpO2: stable & adequate BP & HR: stable & adequate Hydration State: stable & adequate Anesthetic Complications: no major complications apparent
[2018-01-02] MEDS ORDERED: ATROPINE SULFATE 0.1 MG/ML 5ML SYR IV PRN (14:15)
[2018-01-02] MEDS ORDERED: EpHEDrine SULFATE INJ 50 MG/ML AMP IV PRN (14:15)
[2018-01-02 14:38] VITALS: BP 117/49; PULSE 85; TEMP 36.5; O2SAT 96
--- NOTE | 2018-01-02 18:21 | OPERATIVE REPORT ---
DATE OF OPERATION: 01/02/2018 PREOPERATIVE DIAGNOSIS: Wound dehiscence over right arm brachiocephalic arteriovenous fistula. POSTOPERATIVE DIAGNOSIS: Wound dehiscence over right arm brachiocephalic arteriovenous fistula. PROCEDURE: Debridement and closure of right arm wound 1 x 3 cm. SURGEON: Dr. Dayton Meza. CELL POURER: Dr. Sameera Mallory and Luann Magana PA-C. ESTIMATED BLOOD LOSS: 1 mL ANESTHESIA: Moderate sedation plus local. SPECIMEN: None. COMPLICATIONS: None. INDICATIONS: Mrs. Kortney Ardon is a 57-year-old woman with end-stage renal disease, on hemodialysis. She has a right arm brachiocephalic AV fistula. The lower aspect of the incision at the antecubital fossa dehisced. She had some overlying fascia. For this reason, she was recommended to undergo wound debridement. The risks, benefits and alternatives were discussed with the patient and she consented to the procedure. DESCRIPTION OF PROCEDURE: The patient was taken to the operating room and placed in supine position. Her right arm was prepped and draped in the usual sterile fashion. A safety timeout was performed, and the patient, procedure and sidedness were correctly identified. Local anesthesia was used to anesthetize the skin surrounding the wound. A combination of blunt and sharp debridement was used to remove the eschar overlying the wound dehiscence. A 15 blade scalpel was used to free up several millimeter flap of skin at the distal medial aspect of the wound. Wound was irrigated. Hemostasis was achieved with electrocautery. Wound was closed with 4-0 nylon vertical mattress sutures. Approximately 5 sutures were placed. Sterile dressing was applied. The patient tolerated the procedure well and there were no immediate complications. Dr. Dayton Meza was present for the entire procedure. I attest to the content of the Intraoperative Record and any orders documented therein. Any exception s are noted below.
== END 2018-01-02 14:41 | disposition home or self-care (01) ==
LOC: C.ACU 11:10
PROVIDERS: ATTEND Surgery Vascular Surgery
DX: T81.31XA Disruption of external operation (surgical) wound, not elsewhere classified, initial encounter (principal); N18.6 End stage renal disease; I12.0 Hypertensive chronic kidney disease with stage 5 chronic kidney disease or end stage renal disease; Z99.2 Dependence on renal dialysis; I48.91 Unspecified atrial fibrillation; Y84.8 Other medical procedures as the cause of abnormal reaction of the patient, or of later complication, without mention of misadventure at the time of the procedure; E11.9 Type 2 diabetes mellitus without complications; Z86.73 Personal history of transient ischemic attack (TIA), and cerebral infarction without residual deficits; E66.9 Obesity, unspecified; E03.9 Hypothyroidism, unspecified; Z88.2 Allergy status to sulfonamides

== ENCOUNTER → 2018-01-30 | Day surgery (SDC) | payer OTHER ==
[~2018-01-30] VITALS: Ht 160 cm; Wt 82.0 kg
[~2018-01-30] MED LIST changes: +CLINDAMYCIN 600 MG/54 ML D5W IV ONE; +D5W AND 1/4NSS 1000 ML IV SCH; +DLC5 PO; +FENTANYL CITRATE INJ 50 MCG/1 ML 2 ML VIAL IV ONE; +FENTANYL CITRATE INJ 50 MCG/1 ML 2 ML VIAL ONE; +HEPARIN SOD (PORCINE) 5000 UNIT/ML 1 ML VIAL IV ONE; +HEPARIN SOD (PORCINE) 5000 UNIT/ML 1 ML VIAL ONE; +LIDOCAINE HCL 1% 20 ML VIAL SQ ONE; +MIDAZOLAM HCL 1 MG/ML 2ML VIAL IV ONE; +MIDAZOLAM HCL 1 MG/ML 2ML VIAL ONE; +NURSING VERBAL MED ORDER ONE; -SODIUM CHLORIDE 0.9% 1000ML 1,000 ML IV SCH; +TRAMADOL HCL 50 MG TAB ONE
--- NOTE | 2018-01-30 07:51 | History and Physical ---
History & Physical Date of Service Jan 30, 2018. History & Physical Chief Complaint Malfunctioning permcath History of Present Illness The patient is a 57 year old female who has a permcath which is not working well at dialysis. she is here for an exchange of her catheter Allergies Coded Allergies: Oxycodone (Verified Allergy, Intermediate, HIVES, 10/24/17) PER [facility] Sulfa Antibiotics (Verified Allergy, Intermediate, HIVES, 10/24/17) PER [facility] Hydrochlorothiazide w/Triamterene (Verified Allergy, Unknown, UNKNOWN, 10/24/17) Sulfonylureas (Verified Allergy, Unknown, UNKNOWN, 10/24/17) Uncoded Allergies: CARBONIC (Allergy, Unknown, UNKNOWN, 10/24/17) CRBONIC ANHYDRASE INHIBITORS Home Medications Scheduled Atorvastatin (Lipitor), 40 MG PO DAILY Bumetanide (Bumex), 1 TAB PO DAILY Calcium Carbonate (Tums), 1 TAB PO DAILY Cholecalciferol (Vitamin D3), 1 TAB PO DAILY Docusate Sodium (Docusate Sodium), 1 CAP PO BID Insulin Glargine (Lantus), 42 SC QAM Levothyroxine Sodium (Levothyroxine Sodium), 1 TAB PO DAILY Levothyroxine Sodium (Levothyroxine Sodium), 1 TAB PO DAILY Lidocaine-Prilocaine (Lidocaine/Prilocaine), 1 APPLN TOP 3XWK Melatonin (Melatonin), 2 TABS PO QPM Metoprolol Tartrate (Lopressor), 1 TAB PO BID Polyethylene Glycol 3350 (Miralax), 17 GM PO DAILY Pramipexole (Mirapex), 0.25 MG PO HS Senna (Senokot), 2 TAB PO HS Sertraline Hcl (Zoloft), 37.5 MG PO HS Warfarin Sod (Jantoven), 3 MG PO DAILY [Humalog], 4 UNITS SQ HS Scheduled PRN Acetaminophen (Tylenol), 2 TAB PO Q6 PRN for Pain Acetaminophen Tab (Tylenol), 650 MG PO Q4 PRN for Pain Bisacodyl (Bisacodyl), 1 TAB PO UD PRN for Constipation [Bisacodyl Supp], 1 SUPP RE DAILY PRN for Constipation Surgical / Medical History Hx Abdominal Surgery: Yes (3 c-sections) Past Medical/Surgical History: Depression, Diabetes, Kidney Disease, Thyroid Disease Social History Smoking Status: Former Smoker Hx Tobacco Use In Past Year?: No Hx Alcohol Use - Type & Amnt: No Hx Substance Use -Type & Amnt: No Review of Systems Constitutional: No chills, No diaphoresis, No fever, No malaise, No weakness, No weight gain, No weight loss, No sweats, No fatigue, No problem reported Respiratory: No cough, No cyanosis, No RAMIREZ, No hemoptysis, No orthopnea, No PND , No short of breath, No sputum production, No stridor, No wheezing, No dyspnea , No problem reported Cardiovascular: No chest pain, No chest tightness, No chest pressure, No palpitations, No syncope, No diaphoresis, No edema, No intermittent claudication , No orthopnea, No cyanosis, No mumur, No lightheadedness, No paroxysmal nocturnal dyspnea, No problem reported Gastrointestinal: No abdominal pain, No constipation, No diarrhea, No nausea, No vomiting, No anorexia, No appetite changes, No belching, No flatulence, No food intolerance, No hematemesis, No hemorrhoids, No hematochezia, No stool changes, No heartburn, No indigestion, No dysphagia, No rectal bleeding, No problem reported Musculoskeletal: No back pain, No gout, No joint pain, No joint swelling, No muscle pain, No muscle stiffness, No muscle weakness, No neck pain, No problem reported Neurologic: No dizziness, No weakness, No headache, No lethargy, No numbness, No paresthesia, No pre-existing deficit, No seizures, No tics, No tingling, No tremors, No vertigo, No memory loss, No LOC, No problem reported Psychiatric: + depression Physical Exam Constitutional: General Apperance: overweight Level of Distress: NAD Ambulation: ambulating normally Psychiatric: Mental Status: active & alert, normal mood, normal affect Orientation: oriented except where noted, to time, to place, to person Memory: recent memory normal, remote memory normal Head: normocephalic Lungs: Auscultation: breath sounds normal Cardiovascular: Heart Auscultation: RRR Peripheral Pulses: Radial Pulse: normal on the left, normal on the right Femoral Pulse: normal on the left, normal on the right Abdomen: Inspection & Palpation: soft Musculoskeletal: normal Extremities: Upper Right: no cyanosis, no edema, no varicosities, no palpable cord, no clubbing, no ulcers, no mottling Upper Left: no cyanosis, no edema, no varicosities, no palpable cord, no clubbing, no ulcers, no mottling Lower Right: no cyanosis, no edema, no varicosities, no palpable cord, no clubbing, no ulcers, no mottling, Lower Left: no cyanosis, no edema, no varicosities, no palpable cord, no clubbing, no ulcers, no mottling Neurologic: Cranial Nerves: grossly intact Sensation: grossly intact Assessment and Plan Imp: Malfunctioning right arm fistula Plan: Patient for an exchange of her permcath. I have discussed the risks options and benefits of the procedure with the patient. The patient understands the risks options and benefits and agrees to the procedure.
[2018-01-30 10:13] VITALS: BP 119/44; PULSE 85; TEMP 36.5; O2SAT 99; Ht 160 cm; Wt 82.0 kg
--- NOTE | 2018-01-30 12:01 | Pre Sedation Assessment ---
Pre Sedation Assessment General Date of Sedation: Jan 30, 2018. Vital Signs Past 12 Hours Date Time Temp Pulse Resp B/P (MAP) Pulse Ox O2 Delivery O2 Flow Rate FiO2 01/30/18 10:13 36.5 85 16 119/44 (69) 99 Room Air Review Cardiovascular: regular rate, rhythm Lungs: lungs clear Pre-Sedation Airway Assessment Smoking Status: Former Smoker Hx of Sleep Apnea: No Short Thick Neck: No Thyro-mental Distance: > 3 Finger Breadths Oral Cavity: Chipped Teeth, Dental Abnormalities Mallampati Classification: Class II ASA Classification: Class III NPO Status Date of Last Intake of Fluids: Jan 29, 2018 Time of Last Intake of Fluids: 190 Date of Last Intake of Solids: Jan 29, 2018 Time of Last Intake of Solids: 1899 Procedure Planning Contraindications for Sedation: None Current Medications Reviewed: Yes Notes The planned sedation has been discussed with the patient. Informed Consent was obtained. I have identified the patient, determined the appropriateness of sedation and have assessed the patient immediately prior to the procedure. All medicine(s) and interventions are by my order.
--- NOTE | 2018-01-30 13:27 | [facility] Operative Report ---
Operative Report Operative Date Jan 30, 2018. Pre-Operative Diagnosis Malfunctioning Perm Catheter Post-Operative Diagnosis Malfunctioning Perm Catheter Procedure(s) Performed Exchange of Perm Catheter, Moderate Sedation from 1304 - Surgeon Dr. Meza [id number] Tank Crewman Surgeon(s) Dr. Manzano Estimated Blood Loss 3mL Specimens A: Explant Perm Catheter Drains 27 cm Perm Cath in L IJ Anesthesia Type Local Complication(s) none Disposition Indications 57 y/o F with malfunctioning L IJ perm cath on ESRD on HD. Description of Procedure The patient was taken to the angio suite and placed in the supine position. The left side of the neck, chest wall and catheter were prepped and draped in a sterile manner. Local anesthesia was then accomplished. Using sharp and blunt dissection, the cuff of the permcath was freed up from the surrounding fibrous tissue. A wire was inserted under flouroscopy through the perm cath. The permcath and cuff were completely removed over the wire. A new 27 cm perm cath was replaced over the wire. Placement confirmed by flouroscopy. The ports were flushed. They flused and isra back easily. The were locked with heparin. the perm cath was sutured in placed. The patient was then transferred the post- operative area, I, Dr. Meza was present and scrubbed for the entire procedure. I attest to the content of the Intraoperative Record and any orders documented therein. Any exceptions are noted below.
--- NOTE | 2018-01-30 13:34 | [facility] Post Operative Brief Note ---
Immediate Operative Summary Operative Date Jan 30, 2018. Pre-Operative Diagnosis Malfunctioning Perm Catheter Post-Operative Diagnosis Malfunctioning Perm Catheter Procedure(s) Performed Exchange of Perm Catheter, Moderate Sedation from 1304 - [address] Meza Technical Sales Manager Surgeon(s) Dr. Manzano Estimated Blood Loss 3mL Findings Consistent with Post-Op Diagnosis Specimens A: Explant Perm Catheter Drains None Anesthesia Type Local Complication(s) none Disposition Accompanied Pt To Recover: no Disposition:
--- NOTE | 2018-01-30 13:38 | Post Sedation Assessment ---
Post Sedation Assessment General Date of Sedation Jan 30, 2018. Vital Signs: Vital Signs Past 12 Hours Date Time Temp Pulse Resp B/P (MAP) Pulse Ox O2 Delivery O2 Flow Rate FiO2 01/30/18 13:23 84 20 118/70 98 Oxymask 2 01/30/18 13:20 Oxymask 01/30/18 13:15 Oxymask 01/30/18 13:10 Oxymask 01/30/18 13:05 Oxymask 01/30/18 12:55 87 14 150/59 95 Oxymask 2 01/30/18 10:13 36.5 85 16 119/44 (69) 99 Room Air Post Procedure Recovery Score Activity: (2) Moves 4 extremities * Respiration: (2) Deep breath/cough Circulation: (2) +/-20% PreAnes Value Consciousness: (1) Arouseable (by name) Oxygen Saturation: (1) O2 needed for >90% Post Anesthesia Score: 8 Discharge Sedation Level of Care: Fast Track Phase II Post Sedation Plan On clinical assessment, the patient appears to have tolerated the sedation without complications. Patient is recovering as anticipated. Patient will continue to be monitored by nursing and may be discharged when sedation discharge criteria are met per below protocol. Upon Completions of procedure and additional 15 minutes continue every 5 minute vital signs and the P.A.R. score; then discharge to a Phase I or Fast Track to Phase II per the following guidelines: * Discharge Patient to appropriate Phase II area if PAR is 8 or greater or return to pre- procedure baseline. The post - procedure orders will be as directed. * If PAR score is less than 8 or not return to pre-procedure baseline then patient will follow Phase I monitoring till PAR is reached for Phase II. The Phase I may be done in procedure room or may call to secure a Phase I area. * If naloxone or flumazenil are used for reversal, hold in Phase I for an additional 60 -120 minutes before discharge to Phase II. Please call the Sedation Physician to re-evaluate and complete post-note for discharge to Phase II area. Do NOT discharge from procedure sedation or Phase 1 until post- sedation evaluation note is complete by procedure /sedation MD Sedation Discharge Instructions to be given to the patient at discharge to home.
--- NOTE | 2018-01-30 13:40 | Discharge Instructions ---
Discharge Instructions Date of Service Jan 30, 2018. Visit Reason for Visit: End Stage Renal Disease -On Hemodialysis Discharge Discharge Diagnosis / Problem: Malfunctioning permcath Discharge Goals Goal(s): Therapeutic intervention Activity Recommendations Activity Limitations: resume your previous activity Anesthesia . Post Anesthesia Instructions: If you have had General Anesthesia or IV Sedation: * Do not drive today. * Resume driving when surgeon permits. * Do not make important decisions or sign legal documents today. * Call surgeon for: 1. Temperature elevations greater than 101 degrees F. 2. Uncontrollable pain. 3. Excessive bleeding. 4. Persistent nausea and vomiting. 5. Medication intolerance (nausea, vomiting or rash). * For nausea and vomiting use only clear liquids such as: tea, soda, bouillon until nausea subsides, then gradually increase diet as tolerated. * If you have any concerns or questions, call your surgeon's office. If physician is unavailable and it is an emergency, call 911 or go to the nearest emergency room. . Instructions / Follow-Up Instructions / Follow-Up Call [phone] to schedule a follow up appointment if one not already scheduled. May use [facility] SPECIAL CARE INSTRUCTIONS: Medications: * Continue to take your medications as directed. If you have been given a prescription for Plavix, please fill it immediately and take as directed. Incision Care: * Your puncture site may have some bruising and minor swelling for about one week. * You will have a small dressing covering your puncture site. You may remove the dressing after 24 hours and shower. You may let the warm soapy water run over it, but be sure to dry the puncture site well and keep it dry. * DO NOT IMMERSE THE INCISION IN A TUB/POOL/etc. UNTIL HEALED. * Puncture sites should be kept covered with a band-aid until it begins to heal. Restrictions: * Depending on whether you leg or arm was punctured to access the arteries, you will be required to lay flat, hold your arm still, or both, for about 4 hours after the procedure to prevent bleeding. * Limit your activity for the first 48 hours. You may walk and go up and down steps. Avoid excessive bending or movement at the puncture site. Possible Complications: * Excessive Swelling - after blood flow is improved you may notice increased swelling in the lower legs. This is a normal response. This usually depends on the amount of blockages in the leg, how long they have been there prior to your procedure and how much blood flow was restored. Elevating your legs will help to improve this. Please notify our office ([phone] ) if the swelling does not go away after lying in bed overnight. * Infection/Drainage/Bleeding - Drainage or bleeding from the puncture site should be minimal. If you have excessive bleeding or drainage, call our office ([phone]) right away. * Pain - You may experience some mild pain or soreness at your puncture site. If your pain does not improve, please contact our office ([phone]). Call your doctor and seek emergent treatment if you develop: * Temperature above 101 degrees * Any fever or chills * Any redness or purulent drainage from the puncture site * Any new dusky/blue colored toes or feet with coolness or sharp or aching pain. SKIN IRRITATION: * You may experience some redness and/or swelling in the area where radiation was administered. If any skin irritation occurs, please contact your family physician. FOLLOW UP VISIT: Keep any scheduled doctor appointments. Diet Recommendations Recommended Home Diet: resume previous diet Procedures Procedures Performed: Exchange of Perm Catheter, Moderate Sedation from 1304 - 1326 Pending Studies Studies pending at discharge: no Medical Emergencies . Who to Call and When: Medical Emergencies: If at any time you feel your situation is an emergency, please call 911 immediately. . Non-Emergent Contact Non-Emergency issues call your: Surgeon . . "Provider Documentation" section prepared by Dayton Meza. .
[2018-01-30 13:45] VITALS: BP 159/71; PULSE 86; TEMP 36.8; O2SAT 92
[2018-01-30 14:12] VITALS: BP 155/73; PULSE 85; TEMP 36.6; O2SAT 95
[2018-01-30 14:45] VITALS: BP 168/81; PULSE 90; TEMP 36.9; O2SAT 95
== END | disposition home or self-care (01) ==
LOC: C.ACU 09:26
PROVIDERS: ATTEND Surgery Vascular Surgery
DX: T82.898A Other specified complication of vascular prosthetic devices, implants and grafts, initial encounter (principal); Y84.8 Other medical procedures as the cause of abnormal reaction of the patient, or of later complication, without mention of misadventure at the time of the procedure; F32.9 Major depressive disorder, single episode, unspecified; E11.9 Type 2 diabetes mellitus without complications; N28.9 Disorder of kidney and ureter, unspecified; E07.9 Disorder of thyroid, unspecified; Z79.01 Long term (current) use of anticoagulants; Z79.899 Other long term (current) drug therapy; Z88.2 Allergy status to sulfonamides; Z88.6 Allergy status to analgesic agent; Z87.891 Personal history of nicotine dependence

== ENCOUNTER → 2018-02-27 | Day surgery (SDC) | payer OTHER ==
[2018-02-27] VITALS (7 sets, daily range): BP systolic 109–124; BP diastolic 35–39; PULSE 80–88; TEMP 36.5–36.8; O2SAT 97–99; Ht 160 cm; Wt 111.1 kg
[~2018-02-27] VITALS: Ht 160 cm; Wt 111.1 kg
[~2018-02-27] MED LIST changes: +BACIOIN2 TOP; +BISACODYL SUPP; +CLINDAMYCIN 600 MG/54 ML D5W IV SCH; +CLINDAMYCIN IV 600 MG in DEXTROSE 5% 50ML 50 ML IV ONE; +ERYOPO OPB; +HEPARIN SOD (PORCINE) 1000 UNIT/ML 10 ML VIAL IV ONE; +HEPARIN SOD (PORCINE) 1000 UNIT/ML 10 ML VIAL ONE; -HEPARIN SOD (PORCINE) 5000 UNIT/ML 1 ML VIAL IV ONE; -HEPARIN SOD (PORCINE) 5000 UNIT/ML 1 ML VIAL ONE; +IODIXANOL (VISIPAQUE) 270 MG/ML 150ML FLUSH ONE; +LIDOCAINE HCL 1% 20 ML VIAL INJ ONE; -LIDOCAINE HCL 1% 20 ML VIAL SQ ONE; +SEVE1TAB PO; +SODI650T8 PO; +SODIUM CHLORIDE 0.9% 250ML 250 ML IV SCH; -TRAMADOL HCL 50 MG TAB ONE
--- NOTE | 2018-02-27 06:05 | History and Physical ---
History & Physical Date of Service Feb 27, 2018. History & Physical Chief Complaint Right hand pain and coldness History of Present Illness The patient is a 57 year old female who has fistula in her right arm. She has developed pain and coldness in her right hand and is unable to use it that well. 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 Allergies Coded Allergies: Oxycodone (Verified Allergy, Intermediate, HIVES, 10/24/17) PER [facility] Sulfa Antibiotics (Verified Allergy, Intermediate, HIVES, 10/24/17) PER [facility] Hydrochlorothiazide w/Triamterene (Verified Allergy, Unknown, UNKNOWN, 10/24/17) Sulfonylureas (Verified Allergy, Unknown, UNKNOWN, 10/24/17) Uncoded Allergies: CARBONIC (Allergy, Unknown, UNKNOWN, 10/24/17) CRBONIC ANHYDRASE INHIBITORS Home Medications Scheduled Atorvastatin (Lipitor), 40 MG PO DAILY Bumetanide (Bumex), 1 TAB PO DAILY Calcium Carbonate (Tums), 1 TAB PO DAILY Cholecalciferol (Vitamin D3), 1 TAB PO DAILY Docusate Sodium (Docusate Sodium), 1 CAP PO BID Insulin Glargine (Lantus), 42 SC QAM Levothyroxine Sodium (Levothyroxine Sodium), 1 TAB PO DAILY Levothyroxine Sodium (Levothyroxine Sodium), 1 TAB PO DAILY Lidocaine-Prilocaine (Lidocaine/Prilocaine), 1 APPLN TOP 3XWK Melatonin (Melatonin), 2 TABS PO QPM Metoprolol Tartrate (Lopressor), 1 TAB PO BID Polyethylene Glycol 3350 (Miralax), 17 GM PO DAILY Pramipexole (Mirapex), 0.25 MG PO HS Senna (Senokot), 2 TAB PO HS Sertraline Hcl (Zoloft), 37.5 MG PO HS Warfarin Sod (Jantoven), 3 MG PO DAILY [Humalog], 4 UNITS SQ HS Scheduled PRN Acetaminophen (Tylenol), 2 TAB PO Q6 PRN for Pain Acetaminophen Tab (Tylenol), 650 MG PO Q4 PRN for Pain Bisacodyl (Bisacodyl), 1 TAB PO UD PRN for Constipation [Bisacodyl Supp], 1 SUPP RE DAILY PRN for Constipation Surgical / Medical History Hx Abdominal Surgery: Yes (3 c-sections) Past Medical/Surgical History: Depression, Diabetes, Kidney Disease, Thyroid Disease Social History Smoking Status: Former Smoker Hx Tobacco Use In Past Year?: No Hx Alcohol Use - Type & Amnt: No Hx Substance Use -Type & Amnt: No Review of Systems Constitutional: No chills, No diaphoresis, No fever, No malaise, No weakness, No weight gain, No weight loss, No sweats, No fatigue, No problem reported Respiratory: No cough, No cyanosis, No RAMIREZ, No hemoptysis, No orthopnea, No PND , No short of breath, No sputum production, No stridor, No wheezing, No dyspnea , No problem reported Cardiovascular: No chest pain, No chest tightness, No chest pressure, No palpitations, No syncope, No diaphoresis, No edema, No intermittent claudication , No orthopnea, No cyanosis, No mumur, No lightheadedness, No paroxysmal nocturnal dyspnea, No problem reported Gastrointestinal: No abdominal pain, No constipation, No diarrhea, No nausea, No vomiting, No anorexia, No appetite changes, No belching, No flatulence, No food intolerance, No hematemesis, No hemorrhoids, No hematochezia, No stool changes, No heartburn, No indigestion, No dysphagia, No rectal bleeding, No problem reported Musculoskeletal: No back pain, No gout, No joint pain, No joint swelling, No muscle pain, No muscle stiffness, No muscle weakness, No neck pain, No problem reported Neurologic: No dizziness, No weakness, No headache, No lethargy, No numbness, No paresthesia, No pre-existing deficit, No seizures, No tics, No tingling, No tremors, No vertigo, No memory loss, No LOC, No problem reported Psychiatric: + depression Physical Exam Constitutional: General Apperance: overweight Level of Distress: NAD Ambulation: ambulating normally Psychiatric: Mental Status: active & alert, normal mood, normal affect Orientation: oriented except where noted, to time, to place, to person Memory: recent memory normal, remote memory normal Head: normocephalic Lungs: Auscultation: breath sounds normal Cardiovascular: Heart Auscultation: RRR Peripheral Pulses: Radial Pulse: normal on the left, decreased on the right Femoral Pulse: normal on the left, normal on the right Abdomen: Inspection & Palpation: soft Musculoskeletal: decrease strength in right hand Extremities: Upper Right: no cyanosis, no edema, no varicosities, no palpable cord, no clubbing, no ulcers, no mottling, patent fistula, right hand cold to touch Upper Left: no cyanosis, no edema, no varicosities, no palpable cord, no clubbing, no ulcers, no mottling Lower Right: no cyanosis, no edema, no varicosities, no palpable cord, no clubbing, no ulcers, no mottling, Lower Left: no cyanosis, no edema, no varicosities, no palpable cord, no clubbing, no ulcers, no mottling Neurologic: Cranial Nerves: grossly intact Sensation: grossly intact Assessment and Plan Imp: Right brachial artery stenosis Plan: Patient for a right upper extremity arteriogram with possible intervention. I have discussed the risks options and benefits of the procedure with the patient. The patient understands the risks options and benefits and agrees to the procedure.
[2018-02-27 12:17] LABS: INR 1.8 (0.9-1.1); PTT PATIENT 32.3 SECONDS (21.0-31.0)
--- NOTE | 2018-02-27 13:47 | Pre Sedation Assessment ---
Pre Sedation Assessment General Date of Sedation: Feb 27, 2018. Vital Signs Past 12 Hours Date Time Temp Pulse Resp B/P (MAP) Pulse Ox O2 Delivery O2 Flow Rate FiO2 02/27/18 11:48 36.5 85 16 118/39 (65) 97 Room Air Review Cardiovascular: regular rate, rhythm Lungs: lungs clear Pre-Sedation Airway Assessment Smoking Status: Former Smoker Hx of Sleep Apnea: No Short Thick Neck: Yes Thyro-mental Distance: > 3 Finger Breadths Oral Cavity: WNL Mallampati Classification: Class III ASA Classification: Class III NPO Status Date of Last Intake of Fluids: Feb 27, 2018 Time of Last Intake of Fluids: 0800 Date of Last Intake of Solids: Feb 26, 2018 Time of Last Intake of Solids: 2100 Procedure Planning Contraindications for Sedation: None Current Medications Reviewed: Yes Notes The planned sedation has been discussed with the patient. Informed Consent was obtained. I have identified the patient, determined the appropriateness of sedation and have assessed the patient immediately prior to the procedure. All medicine(s) and interventions are by my order.
--- NOTE | 2018-02-27 15:20 | Post Sedation Assessment ---
Post Sedation Assessment General Date of Sedation Feb 27, 2018. Vital Signs: Vital Signs Past 12 Hours Date Time Temp Pulse Resp B/P (MAP) Pulse Ox O2 Delivery O2 Flow Rate FiO2 02/27/18 15:13 17 164/79 100 Mask 4 02/27/18 15:10 Mask 4 02/27/18 15:05 Mask 4 02/27/18 15:00 Mask 4 02/27/18 14:55 Mask 4 02/27/18 14:50 Mask 4 02/27/18 14:45 91 21 142/67 100 Mask 4 02/27/18 14:40 Mask 4 02/27/18 14:35 Mask 4 02/27/18 14:30 Mask 4 02/27/18 14:25 Mask 4 02/27/18 14:20 Mask 4 02/27/18 14:15 Mask 4 02/27/18 14:10 Mask 4 02/27/18 14:05 Mask 4 02/27/18 11:48 36.5 85 16 118/39 (65) 97 Room Air Post Procedure Recovery Score Activity: (2) Moves 4 extremities * Respiration: (2) Deep breath/cough Circulation: (2) +/-20% PreAnes Value Consciousness: (2) Fully Awake Oxygen Saturation: (1) O2 needed for >90% Post Anesthesia Score: 9 Discharge Sedation Level of Care: Fast Track Phase II Post Sedation Plan On clinical assessment, the patient appears to have tolerated the sedation without complications. Patient is recovering as anticipated. Patient will continue to be monitored by nursing and may be discharged when sedation discharge criteria are met per below protocol. Upon Completions of procedure and additional 15 minutes continue every 5 minute vital signs and the P.A.R. score; then discharge to a Phase I or Fast Track to Phase II per the following guidelines: * Discharge Patient to appropriate Phase II area if PAR is 8 or greater or return to pre- procedure baseline. The post - procedure orders will be as directed. * If PAR score is less than 8 or not return to pre-procedure baseline then patient will follow Phase I monitoring till PAR is reached for Phase II. The Phase I may be done in procedure room or may call to secure a Phase I area. * If naloxone or flumazenil are used for reversal, hold in Phase I for an additional 60 -120 minutes before discharge to Phase II. Please call the Sedation Physician to re-evaluate and complete post-note for discharge to Phase II area. Do NOT discharge from procedure sedation or Phase 1 until post- sedation evaluation note is complete by procedure /sedation MD Sedation Discharge Instructions to be given to the patient at discharge to home.
--- NOTE | 2018-02-27 15:20 | [facility] Post Operative Brief Note ---
Immediate Operative Summary Operative Date Feb 27, 2018. Pre-Operative Diagnosis Right brachial artery stenosis Post-Operative Diagnosis Right brachial artery stenosis Procedure(s) Performed Right Upper Extremity Arteriogram Percutaneous Transluminal Angioplasty Right Brachial Artery Arch Aortagram Mechanical Closure of Right Femoral Artery Moderate Sedation [id number] Surgeon [employer] Surgeon(s) [place] Estimated Blood Loss 5 Findings Consistent with Post-Op Diagnosis Specimens None Drains None Anesthesia Type IV Sedat Cons RN Only Complication(s) none Disposition Accompanied Pt To Recover: no Disposition:
--- NOTE | 2018-02-27 15:23 | Discharge Instructions ---
Discharge Instructions Date of Service Feb 27, 2018. Visit Reason for Visit: Brachial Artery Stenosis Discharge Discharge Diagnosis / Problem: Right brachial artery stenosis, Steal syndrome right arm Discharge Goals Goal(s): Therapeutic intervention Activity Recommendations Activity Limitations: per Instructions/Follow-up section Anesthesia . Post Anesthesia Instructions: If you have had General Anesthesia or IV Sedation: * Do not drive today. * Resume driving when surgeon permits. * Do not make important decisions or sign legal documents today. * Call surgeon for: 1. Temperature elevations greater than 101 degrees F. 2. Uncontrollable pain. 3. Excessive bleeding. 4. Persistent nausea and vomiting. 5. Medication intolerance (nausea, vomiting or rash). * For nausea and vomiting use only clear liquids such as: tea, soda, bouillon until nausea subsides, then gradually increase diet as tolerated. * If you have any concerns or questions, call your surgeon's office. If physician is unavailable and it is an emergency, call 911 or go to the nearest emergency room. . Instructions / Follow-Up Instructions / Follow-Up Call [phone] to schedule a follow up appointment if one not already scheduled. SPECIAL CARE INSTRUCTIONS: Medications: * Continue to take your medications as directed. If you have been given a prescription for Plavix, please fill it immediately and take as directed. Incision Care: * Your puncture site may have some bruising and minor swelling for about one week. * You will have a small dressing covering your puncture site. You may remove the dressing after 24 hours and shower. You may let the warm soapy water run over it, but be sure to dry the puncture site well and keep it dry. * DO NOT IMMERSE THE INCISION IN A TUB/POOL/etc. UNTIL HEALED. * Puncture sites should be kept covered with a band-aid until it begins to heal. Restrictions: * Depending on whether you leg or arm was punctured to access the arteries, you will be required to lay flat, hold your arm still, or both, for about 4 hours after the procedure to prevent bleeding. * Limit your activity for the first 48 hours. You may walk and go up and down steps. Avoid excessive bending or movement at the puncture site. Possible Complications: * Excessive Swelling - after blood flow is improved you may notice increased swelling in the lower legs. This is a normal response. This usually depends on the amount of blockages in the leg, how long they have been there prior to your procedure and how much blood flow was restored. Elevating your legs will help to improve this. Please notify our office ([phone] ) if the swelling does not go away after lying in bed overnight. * Infection/Drainage/Bleeding - Drainage or bleeding from the puncture site should be minimal. If you have excessive bleeding or drainage, call our office ([phone]) right away. * Pain - You may experience some mild pain or soreness at your puncture site. If your pain does not improve, please contact our office ([phone]). Call your doctor and seek emergent treatment if you develop: * Temperature above 101 degrees * Any fever or chills * Any redness or purulent drainage from the puncture site * Any new dusky/blue colored toes or feet with coolness or sharp or aching pain. SKIN IRRITATION: * You may experience some redness and/or swelling in the area where radiation was administered. If any skin irritation occurs, please contact your family physician. FOLLOW UP VISIT: Keep any scheduled doctor appointments. Diet Recommendations Recommended Home Diet: resume previous diet Procedures Procedures Performed: Right Upper Extremity Arteriogram Percutaneous Transluminal Angioplasty Right Brachial Artery Arch Aortagram Mechanical Closure of Right Femoral Artery Moderate Sedation [id number] Pending Studies Studies pending at discharge: no Medical Emergencies . Who to Call and When: Medical Emergencies: If at any time you feel your situation is an emergency, please call 911 immediately. . Non-Emergent Contact Non-Emergency issues call your: Surgeon . . "Provider Documentation" section prepared by Dayton Meza. .
--- NOTE | 2018-02-27 15:55 | DIAGNOSTIC IMAGING REPORT ---
DATE OF PROCEDURE: 02/27/2018 PREOPERATIVE DIAGNOSIS: Right arm brachial artery stenosis. POSTOPERATIVE DIAGNOSIS: Right arm brachial artery stenosis. PROCEDURE: Ultrasound guided right femoral artery access, arch aortogram, right upper extremity arteriogram, percutaneous transluminal angioplasty of right brachial artery with ____ mm balloon, completion angio, mechanical closure of right femoral artery with StarClose device, ____ moderate sedation 14:20 to 15:13. SURGEON: Dr. Dayton Meza. SHEET ROCK INSTALLER: Dr. Sameera Mallory. ANESTHESIA: Moderate sedation plus local. ESTIMATED BLOOD LOSS: 5 mL. COMPLICATIONS: None. INDICATIONS: Mrs. Kortney Ardon is a 57-year-old woman with history of right arm brachiocephalic AV fistula. She unfortunately developed pain and coldness in her right hand and inability to use her right hand as well. She underwent a right upper extremity arterial ultrasound that was concerning for a brachial artery stenosis. For this reason, she was recommended to undergo a right upper extremity arteriogram with possible intervention. The risks, benefits and alternatives were discussed with the patient and she consented to the procedure. DESCRIPTION OF PROCEDURE: The patient was taken to the endovascular suite and placed in the supine position. The right groin was prepped and draped in the usual sterile fashion. A safety timeout was performed and the patient, procedure, and sidedness were correctly identified. Ultrasound was used to identify the right common femoral artery. Local anesthesia was used to anesthetize the skin overlying the right groin. An 18-gauge access needle was used to access the right common femoral artery under ultrasound guidance. A J wire easily passed through the needle and the needle was removed. A small skin incision was made. A 5 [place] sheath was passed over the wire into the right groin. A long-angled Glidewire was passed up the 5-Kyrgyz sheath and into the aorta. This was followed by a pigtail catheter. The wire was removed and the pigtail catheter was seated on the aortic valve. Arch angiogram was obtained and showed the origin of the innominate, left common, and left subclavian arteries. A wire was placed through the pigtail and the pigtail was removed. A JB2 catheter was then placed over the wire and into the arch. The wire was withdrawn and the JB2 catheter was seated into the innominate artery. Wire was advanced and the right subclavian was easily selected. A right upper extremity angiogram was then obtained. This showed 2 areas of stenosis within the likely axillary and then brachial artery, on the right side. This additionally showed a significant steal from her right upper extremity fistula with prompt venous filling. More distal right upper extremity arteriogram was obtained and did show patent radial and ulnar arteries, once we were beyond the arteriovenous anastomosis. We were easily able to ____
== END | disposition home or self-care (01) ==
LOC: C.ACU 11:05
PROVIDERS: ATTEND Surgery Vascular Surgery
DX: I77.1 Stricture of artery (principal); T82.898A Other specified complication of vascular prosthetic devices, implants and grafts, initial encounter; Y82.8 Other medical devices associated with adverse incidents; Z88.5 Allergy status to narcotic agent; Z88.2 Allergy status to sulfonamides; Z88.8 Allergy status to other drugs, medicaments and biological substances; Z87.891 Personal history of nicotine dependence; F32.9 Major depressive disorder, single episode, unspecified; E11.9 Type 2 diabetes mellitus without complications; N18.9 Chronic kidney disease, unspecified; E03.9 Hypothyroidism, unspecified

== ENCOUNTER 2018-04-01 10:41 | Inpatient (IN) | payer OTHER ==
[2018-03-20 16:13] VITALS: BMI 42.0
--- NOTE | 2018-03-23 12:51 | PAT Medication Instructions ---
Service Date Mar 23, 2018. Current Home Medication List Acetaminophen Tab (Tylenol), 650 MG PO Q4 PRN for Pain Bisacodyl (Bisacodyl EC), 1 TAB PO DAILY PRN for Constipation Bumetanide (Bumex), 1 TAB PO QAM Cadexomer Iodine (Iodosorb), 1 DOSE TP BID Calcium Carbonate (Tums), 4 TAB PO TIDM Cephalexin Monohydrate (Keflex), 250 MG PO QID Cholecalciferol (Vitamin D3), 1 TAB PO QAM Docusate Sodium (Docusate Sodium), 1 CAP PO BID Insulin Glargine (Lantus Solostar), 42 UNITS SC QAM Levothyroxine Sodium (Levothyroxine Sodium), 1 TAB PO DAILY Levothyroxine Sodium (Synthroid), 50 MCG PO QAM Melatonin (Melatonin), 2 TABS PO QPM Metoprolol Tartrate (Lopressor) (Lopressor), 25 MG PO BID Pantoprazole (Protonix), 1 TAB PO QAM Polyethylene Glycol 3350 (Miralax), 17 GM PO QAM Pramipexole (Mirapex), 0.25 MG PO HS Senna (Senokot), 1 TAB PO HS Sertraline Hcl (Zoloft), 37.5 MG PO HS Sevelamer Carbonate (Renvela), 1 TAB PO QAM Sodium Bicarbonate (Sodium Bicarbonate), 1 TAB PO QAM Tramadol (Ultram), 50 MG PO Q4H PRN for Pain Warfarin Sod (Coumadin), 2.5 MG PO QPM [Bisacodyl Supp], 1 SUPP for Constipation [humalog], 7 UNITS SQ BIDM Medication Instructions For Your Scheduled Surgery -Check with your prescriber and surgeon for instructions for: Warfarin Sod (Coumadin), 2.5 MG PO QPM - Hold the following medications 24 hours prior to surgery: Cadexomer Iodine (Iodosorb), 1 DOSE TP BID - Do NOT take the following medication the night before surgery: Pramipexole (Mirapex), 0.25 MG PO HS - Hold the following medications the morning of surgery: Bisacodyl (Bisacodyl EC), 1 TAB PO DAILY PRN for Constipation Bumetanide (Bumex), 1 TAB PO QAM Calcium Carbonate (Tums), 4 TAB PO TIDM Docusate Sodium (Docusate Sodium), 1 CAP PO BID Polyethylene Glycol 3350 (Miralax), 17 GM PO QAM Sodium Bicarbonate (Sodium Bicarbonate), 1 TAB PO QAM Sevelamer Carbonate (Renvela), 1 TAB PO QAM [humalog], 7 UNITS SQ BIDM [Bisacodyl Supp], 1 SUPP for Constipation - Take the following medications the morning of surgery with a sip of water: Acetaminophen Tab (Tylenol), 650 MG PO Q4 PRN for Pain (if needed, can be taken up to four hours before surgery) Cephalexin Monohydrate (Keflex), 250 MG PO QID Levothyroxine Sodium (Levothyroxine Sodium), 1 TAB PO DAILY Levothyroxine Sodium (Synthroid), 50 MCG PO QAM Metoprolol Tartrate (Lopressor) (Lopressor), 25 MG PO BID Pantoprazole (Protonix), 1 TAB PO QAM Tramadol (Ultram), 50 MG PO Q4H PRN for Pain (if needed, can be taken up to four hours before surgery) - Take the following medications as scheduled the night before surgery: Acetaminophen Tab (Tylenol), 650 MG PO Q4 PRN for Pain (if needed) Calcium Carbonate (Tums), 4 TAB PO TIDM Cephalexin Monohydrate (Keflex), 250 MG PO QID Cholecalciferol (Vitamin D3), 1 TAB PO QAM Docusate Sodium (Docusate Sodium), 1 CAP PO BID Melatonin (Melatonin), 2 TABS PO QPM Metoprolol Tartrate (Lopressor) (Lopressor), 25 MG PO BID Senna (Senokot), 1 TAB PO HS Sertraline Hcl (Zoloft), 37.5 MG PO HS Tramadol (Ultram), 50 MG PO Q4H PRN for Pain (if needed) [humalog], 7 UNITS SQ BIDM [Bisacodyl Supp], 1 SUPP for Constipation (if needed) - For Insulin Dependent Diabetic patients: Test blood sugar A.M. of surgery. - If BLOOD SUGAR IS GREATER THAN 150, take half of your regular dose of: Insulin Glargine (Lantus Solostar) -- TAKE 21 UNITS - If BLOOD SUGAR IS LESS THAN 150, do not take any: Insulin Glargine ( Lantus Solostar) If you have any questions please call us at [phone] or [phone] or [phone]
[~2018-04-01] VITALS: Ht 160 cm; Wt 109.8 kg
--- NOTE | 2018-04-01 10:30 | History and Physical ---
History & Physical Date of Service April 01, 2018. History & Physical Chief Complaint Right hand pain and coldness History of Present Illness The patient is a 57 year old female who has fistula in her right arm. She has developed pain and coldness in her right hand and is unable to use it that well. 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 The stenosis was treated by endovascular means. She does have a steal syndrome of the right arm. Allergies Coded Allergies: Oxycodone (Verified Allergy, Intermediate, HIVES, 10/24/17) PER [employer] Sulfa Antibiotics (Verified Allergy, Intermediate, HIVES, 10/24/17) PER [employer] Hydrochlorothiazide w/Triamterene (Verified Allergy, Unknown, UNKNOWN, 10/24/17) Sulfonylureas (Verified Allergy, Unknown, UNKNOWN, 10/24/17) Uncoded Allergies: CARBONIC (Allergy, Unknown, UNKNOWN, 10/24/17) CRBONIC ANHYDRASE INHIBITORS Home Medications Scheduled Atorvastatin (Lipitor), 40 MG PO DAILY Bumetanide (Bumex), 1 TAB PO DAILY Calcium Carbonate (Tums), 1 TAB PO DAILY Cholecalciferol (Vitamin D3), 1 TAB PO DAILY Docusate Sodium (Docusate Sodium), 1 CAP PO BID Insulin Glargine (Lantus), 42 SC QAM Levothyroxine Sodium (Levothyroxine Sodium), 1 TAB PO DAILY Levothyroxine Sodium (Levothyroxine Sodium), 1 TAB PO DAILY Lidocaine-Prilocaine (Lidocaine/Prilocaine), 1 APPLN TOP 3XWK Melatonin (Melatonin), 2 TABS PO QPM Metoprolol Tartrate (Lopressor), 1 TAB PO BID Polyethylene Glycol 3350 (Miralax), 17 GM PO DAILY Pramipexole (Mirapex), 0.25 MG PO HS Senna (Senokot), 2 TAB PO HS Sertraline Hcl (Zoloft), 37.5 MG PO HS Warfarin Sod (Jantoven), 3 MG PO DAILY [Humalog], 4 UNITS SQ HS Scheduled PRN Acetaminophen (Tylenol), 2 TAB PO Q6 PRN for Pain Acetaminophen Tab (Tylenol), 650 MG PO Q4 PRN for Pain Bisacodyl (Bisacodyl), 1 TAB PO UD PRN for Constipation [Bisacodyl Supp], 1 SUPP RE DAILY PRN for Constipation Surgical / Medical History Hx Abdominal Surgery: Yes (3 c-sections) Past Medical/Surgical History: Depression, Diabetes, Kidney Disease, Thyroid Disease Social History Smoking Status: Former Smoker Hx Tobacco Use In Past Year?: No Hx Alcohol Use - Type & Amnt: No Hx Substance Use -Type & Amnt: No Review of Systems Constitutional: No chills, No diaphoresis, No fever, No malaise, No weakness, No weight gain, No weight loss, No sweats, No fatigue, No problem reported Respiratory: No cough, No cyanosis, No RAMIREZ, No hemoptysis, No orthopnea, No PND , No short of breath, No sputum production, No stridor, No wheezing, No dyspnea , No problem reported Cardiovascular: No chest pain, No chest tightness, No chest pressure, No palpitations, No syncope, No diaphoresis, No edema, No intermittent claudication , No orthopnea, No cyanosis, No mumur, No lightheadedness, No paroxysmal nocturnal dyspnea, No problem reported Gastrointestinal: No abdominal pain, No constipation, No diarrhea, No nausea, No vomiting, No anorexia, No appetite changes, No belching, No flatulence, No food intolerance, No hematemesis, No hemorrhoids, No hematochezia, No stool changes, No heartburn, No indigestion, No dysphagia, No rectal bleeding, No problem reported Musculoskeletal: No back pain, No gout, No joint pain, No joint swelling, No muscle pain, No muscle stiffness, No muscle weakness, No neck pain, No problem reported Neurologic: No dizziness, No weakness, No headache, No lethargy, No numbness, No paresthesia, No pre-existing deficit, No seizures, No tics, No tingling, No tremors, No vertigo, No memory loss, No LOC, No problem reported Psychiatric: + depression Physical Exam Constitutional: General Apperance: overweight Level of Distress: NAD Ambulation: ambulating normally Psychiatric: Mental Status: active & alert, normal mood, normal affect Orientation: oriented except where noted, to time, to place, to person Memory: recent memory normal, remote memory normal Head: normocephalic Lungs: Auscultation: breath sounds normal Cardiovascular: Heart Auscultation: RRR Peripheral Pulses: Radial Pulse: normal on the left, decreased on the right Femoral Pulse: normal on the left, normal on the right Abdomen: Inspection & Palpation: soft Musculoskeletal: decrease strength in right hand Extremities: Upper Right: no cyanosis, no edema, no varicosities, no palpable cord, no clubbing, no ulcers, no mottling, patent fistula, right hand cold to touch Upper Left: no cyanosis, no edema, no varicosities, no palpable cord, no clubbing, no ulcers, no mottling Lower Right: no cyanosis, no edema, no varicosities, no palpable cord, no clubbing, no ulcers, no mottling, Lower Left: no cyanosis, no edema, no varicosities, no palpable cord, no clubbing, no ulcers, no mottling Neurologic: Cranial Nerves: grossly intact Sensation: grossly intact Assessment and Plan Imp: Right arm steal syndrome Plan: Patient for a right upper extremity DRIL procedure. I have discussed the risks options and benefits of the procedure with the patient. The patient understands the risks options and benefits and agrees to the procedure.
[~2018-04-01 10:41] MED LIST changes: -BACIOIN2 TOP; +CDXG40WC TP; -CEFAZOLIN 1000MG IV PUSH 7.5 ML IV SCH; +CEFAZOLIN 2000MG IV PUSH 15 ML IV SCH; -CLINDAMYCIN 600 MG/54 ML D5W IV ONE; -CLINDAMYCIN 600 MG/54 ML D5W IV SCH; -CLINDAMYCIN IV 600 MG in DEXTROSE 5% 50ML 50 ML IV ONE; -D5W AND 1/4NSS 1000 ML IV SCH; -ERYOPO OPB; -FENTANYL CITRATE INJ 50 MCG/1 ML 2 ML VIAL IV ONE; -FENTANYL CITRATE INJ 50 MCG/1 ML 2 ML VIAL ONE; -HEPARIN SOD (PORCINE) 1000 UNIT/ML 10 ML VIAL IV ONE; -HEPARIN SOD (PORCINE) 1000 UNIT/ML 10 ML VIAL ONE; -HUMALOG SQ; -IODIXANOL (VISIPAQUE) 270 MG/ML 150ML FLUSH ONE; +KFL/250 PO; -LIDO1CRE16 TOP; -LIDOCAINE HCL 1% 20 ML VIAL INJ ONE; -LPT/40 PO; -MIDAZOLAM HCL 1 MG/ML 2ML VIAL IV ONE; -MIDAZOLAM HCL 1 MG/ML 2ML VIAL ONE; -NURSING VERBAL MED ORDER ONE; -SEVE1TAB PO; +SEVE800T7 PO; +SODIUM CHLORIDE 0.9% 1000ML IV SCH; -SODIUM CHLORIDE 0.9% 250ML 250 ML IV SCH
[2018-04-01 11:17] VITALS: BP 140/78; PULSE 87; TEMP 36.7; O2SAT 98; Ht 160 cm; Wt 109.8 kg
[2018-04-01] MEDS ORDERED: HUMALOG SQ (11:47)
[2018-04-01] MEDS ORDERED: LIDO1CRE16 TOP (11:51)
[2018-04-01] MEDS ORDERED: ATOR-24 PO (11:51)
[2018-04-01 12:07] LABS: CALCIUM 9.2 mg/dl (8.5-10.1); CREATININE 6.67 mg/dl (0.60-1.20); POTASSIUM 5.4 mmol/L (3.5-5.1)
[2018-04-01] MEDS ORDERED: LIDOCAINE HCL 2% 2 ML VIAL (20MG/ML) ONE (12:25)
[2018-04-01] MEDS ORDERED: PROPOFOL IV EMULSION 10 MG/ML 20 ML VIAL ONE (12:25)
[2018-04-01] MEDS ORDERED: DEXAMETHASONE SOD INJ 4 MG/ML VIAL ONE (12:25)
[2018-04-01] MEDS ORDERED: ONDANSETRON INJ 2 MG/ML 2 ML VIAL ONE ×2 (12:25→19:57)
[2018-04-01] MEDS ORDERED: MIDAZOLAM HCL 1 MG/ML 2ML VIAL ONE (12:26)
[2018-04-01] MEDS ORDERED: FENTANYL CITRATE INJ 50 MCG/1 ML 2 ML VIAL ONE ×5 (12:26→16:12)
[2018-04-01] MEDS ORDERED: GELATIN SPONGE 12-7MM ONE (12:47)
[2018-04-01] MEDS ORDERED: THROMBIN FOR SOLN 20000 UNIT KIT ONE (12:47)
[2018-04-01] MEDS ORDERED: LIDOCAINE HCL 1% 20 ML VIAL ONE (12:48)
[2018-04-01] MEDS ORDERED: HEPARIN SOD (PORCINE) 1000 UNIT/ML 10 ML VIAL ONE ×2 (12:48→15:32)
[2018-04-01] MEDS ORDERED: BUPIVACAINE 0.5 % 5 MG/1 ML MPF 30ML VIAL ONE (12:49)
[2018-04-01] MEDS ORDERED: EpINEphrine INJ 1MG/ML AMP 1 MG/ML AMP ONE (12:49)
[2018-04-01] MEDS ORDERED: GELATIN SPONGE SZ 100 ONE (13:25)
[2018-04-01] MEDS ORDERED: BACITRACIN 50000 UNIT VIAL ONE (14:17)
[2018-04-01] MEDS ORDERED: EpHEDrine SULFATE INJ 50 MG/ML AMP IV PRN (14:45)
[2018-04-01] MEDS ORDERED: ATROPINE SULFATE 0.1 MG/ML 5ML SYR IV PRN (14:45)
[2018-04-01] MEDS ORDERED: ONDANSETRON INJ 2 MG/ML 2 ML VIAL IV PRN ×2 (14:45→16:45)
[2018-04-01] MEDS ORDERED: CISATRACURIUM BESYLATE IV SOLN 2 MG/ML 10 ML VIAL ONE (15:12)
[2018-04-01] MEDS ORDERED: METOPROLOL TARTRATE 1 MG/ML VIAL ONE (15:12)
--- NOTE | 2018-04-01 16:34 | [facility] Post Operative Brief Note ---
Immediate Operative Summary Operative Date April 01, 2018. Pre-Operative Diagnosis Right Arm Steal Syndrome Post-Operative Diagnosis Right Arm Steal Syndrome Procedure(s) Performed DRIL Procedure of Right Arm Fistula [place] of Greater Left Saphenous Vein Surgeon Dr. Dayton Meza [employer] Manager Surgeon(s) Luann Magana PA-C Estimated Blood Loss 150ML Findings Consistent with Post-Op Diagnosis Specimens none per surgeon Drains None Anesthesia Type General Complication(s) none Disposition Disposition: Recovery Room / PACU
[2018-04-01] MEDS ORDERED: ACETAMINOPHEN 325 MG TAB PO PRN (16:45)
[2018-04-01] MEDS ORDERED: GLUCOSE 40% GEL 15 GM TUBE PO PRN (16:45)
[2018-04-01] MEDS ORDERED: TRAMADOL HCL 50 MG TAB PO PRN (16:45)
[2018-04-01] MEDS ORDERED: LIDOCAINE/PRILOCAINE 2.5% EA CRM EXT PRN (16:45)
[2018-04-01] MEDS ORDERED: DEXTROSE 50% 50 ML SYR IV PRN (16:45)
[2018-04-01] MEDS ORDERED: BISACODYL 5 MG TABEC PO PRN (16:45)
[2018-04-01] MEDS ORDERED: CARBOHYDRATES FOR HYPOGLYCEMIA PO PRN (16:45)
[2018-04-01] MEDS ORDERED: GLUCOSE 10 TABS/TUBE PO PRN (16:45)
[2018-04-01] MEDS ORDERED: GLUCAGON FOR INJ 1 MG VIAL SQ PRN (16:45)
[2018-04-01] MEDS: FENTANYL CITRATE INJ 50 MCG/1 ML 2 ML VIAL IV PRN ×3 (17:20→17:50)
[2018-04-01] MEDS ORDERED: METOCLOPRAMIDE HCL INJ 5 MG/ML 2 ML VIAL ONE (17:38)
[2018-04-01] MEDS ORDERED: NURSING VERBAL MED ORDER ONE (17:45)
[2018-04-01 17:57] LABS: BASO % 0.2 %; BASO ABS # 0.03 K/uL (0-0.2); EOS % 0.8 %; HEMATOCRIT 35.1 % (37-47); HEMOGLOBIN 11.2 g/dL (12.0-16.0); IG# 0.21 K/uL (0.00-0.02); LYMPH % 20.9 %; LYMPH ABS # 2.71 K/uL (1.2-3.4); MEAN CORPUSCULAR HEMOGLOBIN 30.9 pg (25-34); MEAN CORPUSCULAR HGB CONC 31.9 g/dl (32-36); MEAN PLATELET VOLUME 10.1 fL (7.4-10.4); MONO % 6.9 %; NEUT % 69.6 %; NEUT ABS # 9.02 K/uL (1.4-6.5); PLATELET COUNT 258 K/uL (130-400); RED CELL DISTRIBUTION WIDTH CV 15.8 % (11.5-14.5); RED CELL DISTRIBUTION WIDTH SD 53.9 fL (36.4-46.3); WHITE BLOOD COUNT 12.97 K/uL (4.8-10.8)
[2018-04-01 18:30] VITALS: BP 131/57; PULSE 92; TEMP 36.9; O2SAT 100; O2SAT 99
[2018-04-01 18:32] LABS: CALCIUM 9.3 mg/dl (8.5-10.1); CREATININE 6.84 mg/dl (0.60-1.20); POTASSIUM 5.8 mmol/L (3.5-5.1)
--- NOTE | 2018-04-01 18:35 | Anesthesiology Progress Note ---
Anesthesia Post Op Note Date & Time April 01, 2018 at 18:34 Vital Signs Pain Intensity: 4 Vital Signs Past 12 Hours Date Time Temp Pulse Resp B/P (MAP) Pulse Ox O2 Delivery O2 Flow Rate FiO2 04/01/18 18:15 90 16 115/62 99 Nasal Cannula 2 04/01/18 18:00 36.4 87 16 135/64 99 Nasal Cannula 2 04/01/18 17:50 87 16 154/77 99 Nasal Cannula 2 04/01/18 17:40 93 18 130/52 99 Nasal Cannula 2 04/01/18 17:30 90 19 150/58 95 Nasal Cannula 2 04/01/18 17:20 92 17 155/80 100 Free Flow/B[place] 10 04/01/18 17:10 93 19 170/92 98 Oxymask 10 04/01/18 17:02 36.2 95 16 123/82 100 Oxymask 10 04/01/18 11:17 36.7 87 20 140/78 (98) 98 Room Air Notes Mental Status: alert / awake / arousable, participated in evaluation Pt Amnestic to Procedure: Yes Nausea / Vomiting: adequately controlled Pain: adequately controlled Airway Patency, RR, SpO2: stable & adequate BP & HR: stable & adequate Hydration State: stable & adequate Anesthetic Complications: no major complications apparent
[2018-04-01] MEDS ORDERED: SODIUM POLYST. SULF SUSP 15G/60ML PO STA (19:06)
[2018-04-01 19:08] VITALS: BP 134/78; PULSE 93; TEMP 36.6; O2SAT 100
[2018-04-01 19:34] VITALS: BP 147/69; PULSE 94; TEMP 36.5; O2SAT 98
[2018-04-01] MEDS ORDERED: BUMETANIDE IV 4 MG in SYRINGE 0 ML IV ONE (19:40)
[2018-04-01] MEDS ORDERED: D5W AND 1/2NSS 1,000 ML IV SCH (20:36)
[2018-04-01] MEDS ORDERED: MELATONIN PO SCH (21:00)
[2018-04-01 21:12] VITALS: BP 145/76; PULSE 100; TEMP 36.7; O2SAT 99
[2018-04-01] MEDS: PRAMIPEXOLE DIHYDROCHLORIDE 0.25MG TAB PO SCH (21:15)
[2018-04-01] MEDS: SENNA 8.6 MG TAB PO SCH (21:15)
[2018-04-01] MEDS: SERTRALINE HCL 50 MG TAB PO SCH (21:15)
[2018-04-01] MEDS: METOPROLOL TARTRATE 25 MG TAB PO SCH (21:16)
[2018-04-01] MEDS: CALCIUM CARBONATE 500 MG CHEWABLE PO SCH (21:16)
[2018-04-01] MEDS: DOCUSATE SODIUM 100 MG CAP PO SCH (21:16)
[2018-04-01] MEDS: CLINDAMYCIN IV 600 MG in DEXTROSE 5% 50ML 50 ML IV SCH (21:17)
[2018-04-01] MEDS: TRAMADOL HCL 50 MG TAB PO PRN (21:23)
[2018-04-01] MEDS: INSULIN HUMAN REGULAR SC SCH (21:30)
[2018-04-01 23:17] VITALS: BP 110/55; PULSE 93; TEMP 37.1; O2SAT 93
[2018-04-02] VITALS (19 sets, daily range): BP systolic 93–132; BP diastolic 41–75; PULSE 87–108; TEMP 36.9–38; O2SAT 91–95
[2018-04-02] MEDS: MoRPHine SULFATE 4 MG/ML 1 ML CARP\\VIAL IV PRN ×7 (00:30→20:55)
[2018-04-02] MEDS: TRAMADOL HCL 50 MG TAB PO PRN ×2 (04:20→15:28)
[2018-04-02] MEDS ORDERED: NURSING VERBAL MED ORDER ONE (05:15)
[2018-04-02 05:45] LABS: BASO % 0.2 %; BASO ABS # 0.02 K/uL (0-0.2); EOS % 0.4 %; EOS ABS # 0.04 K/uL (0-0.5); HEMATOCRIT 29.3 % (37-47); HEMOGLOBIN 9.4 g/dL (12.0-16.0); LYMPH % 16.7 %; LYMPH ABS # 1.64 K/uL (1.2-3.4); MEAN CELL VOLUME 96.7 fL (80-100); MEAN CORPUSCULAR HGB CONC 32.1 g/dl (32-36); MONO % 8.8 %; MONO ABS # 0.86 K/uL (0.11-0.59); NEUT % 72.9 %; NEUT ABS # 7.16 K/uL (1.4-6.5); PLATELET COUNT 215 K/uL (130-400); RED CELL DISTRIBUTION WIDTH CV 15.8 % (11.5-14.5); RED CELL DISTRIBUTION WIDTH SD 54.2 fL (36.4-46.3); WHITE BLOOD COUNT 9.82 K/uL (4.8-10.8)
[2018-04-02] MEDS: LEVOTHYROXINE 200 MCG TAB PO SCH (05:46)
[2018-04-02] MEDS: CLINDAMYCIN IV 600 MG in DEXTROSE 5% 50ML 50 ML IV SCH (05:46)
[2018-04-02] MEDS: LEVOTHYROXINE 50 MCG TAB PO SCH (05:46)
[2018-04-02 05:57] LABS: INR 1.2 (0.9-1.1)
[2018-04-02 06:30] LABS: CALCIUM 8.5 mg/dl (8.5-10.1); CREATININE 7.51 mg/dl (0.60-1.20); POTASSIUM 5.2 mmol/L (3.5-5.1)
[2018-04-02] MEDS: INSULIN HUMAN REGULAR SC SCH ×4 (08:00→20:59)
[2018-04-02] MEDS: CALCIUM CARBONATE 500 MG CHEWABLE PO SCH ×3 (08:30→18:30)
[2018-04-02] MEDS: POLYETHYLENE (MIRALAX) 17 GM PACK PO SCH (09:00)
[2018-04-02] MEDS: METOPROLOL TARTRATE 25 MG TAB PO SCH ×2 (09:00→21:08)
[2018-04-02] MEDS: HEPARIN SOD 5000 UNIT/0.5 ML CARP SQ SCH ×2 (09:00→20:59)
[2018-04-02] MEDS: DOCUSATE SODIUM 100 MG CAP PO SCH ×2 (09:00→21:08)
--- NOTE | 2018-04-02 09:12 | Clinical Documentation Query ---
Dr. CASTRO PINK HILL : CLINICAL DOCUMENTATION QUERIES QUERY 1 OF 2 Patient is a 57 year old female admitted for evaluation and treatment of right hand coldness and inability to use it normally. Documentation includes " She does have a steal syndrome of the right arm". As appropriate, please specify as suggested below as a complication cannot be assumed by the professional clinical coder. In your clinical opinion is this patient being managed for: ( ) Arteriovenous/ischemic steal syndrome, a complication of right arm fistula ( ) Not Agree ( ) Other explanation of clinical findings (Please Explain. If no explanation given, this would be considered a no response.) ( ) Unable to determine ( ) Need to Discuss (Please call CDS via extension or qliq. If no interaction occurs this is considered a no response.) The medical record reflects the following clinical findings, treatment, and risk factors. Clinical Indicators: As above Treatment: right upper extremity DRIL procedure Risk Factors: RUE fistula creation QUERY 2 OF 2 Documentation includes "kidney disease". As appropriate, consider documentation as suggested below as this impacts accurate DRG assignment. Thank you. In your clinical opinion is this patient being managed for: ( ) End stage renal disease ( ) Not Agree ( ) Other explanation of clinical findings (Please Explain. If no explanation given, this would be considered a no response.) ( ) Unable to determine ( ) Need to Discuss (Please call CDS via extension or qliq. If no interaction occurs this is considered a no response.) The medical record reflects the following clinical findings, treatment, and risk factors. Clinical Indicators: As above Treatment: Nephrology consultation Risk Factors: Age, diabetes, smoking history. Please clarify and document your clinical opinion in the progress notes and discharge summary. Terms such as "probable", "suspected", "likely", "questionable", "possible", or "still to be ruled out" are acceptable. IF IN AGREEMENT, YOU MUST DOCUMENT ABOVE DIAGNOSTIC STATEMENT IN DAILY PROGRESS NOTES AND DISCHARGE SUMMARY. This document is not part of the patient's record. Thank You, Nixon Kapoor, RN [phone]
--- NOTE | 2018-04-02 09:27 | Nephrology Consultation ---
Nephrology Consultation Date & Providers Date of Consultation: April 02, 2018. Primary Care Provider: Marco Connolly M.D. Referring Provider: Reason for Consultation Management of hyperkalemia and hemodialysis for end-stage renal disease History of Present Illness Kortney is a 57-year-old female with past medical history significant for end- stage renal disease on hemodialysis, hypertension, diabetes admitted to the hospital for vascular access procedure yesterday. Nephrology consult was requested for management of hyperkalemia after procedure and need for dialysis. Kortney has end-stage renal disease, has been on hemodialysis Friday, on , Friday at [facility] inpatient dialysis unit. She currently has a tunneled dialysis catheter and AV fistula. She was having symptoms of steal syndrome with AV fistula and admitted electively yesterday for DRIL procedure. She had the procedure done uneventful yesterday afternoon. Her last dialysis was Friday. Blood pressure and volume status was acceptable. Potassium was 5.4 before procedure and lab in late afternoon showed potassium was 5.8. Nephrology consult was requested yesterday evening for evaluation for emergency need for dialysis. She still makes urine. She was given Bumex 4 milligram IV and the Kayexalate 30 milligram p.o. x1 dose and repeat potassium was checked at 11 p.m. last night. Potassium improved to 5.4. This morning potassium improved further to 5.2. Overnight she has been asymptomatic. Currently she is otherwise feeling fine, denies any shortness of breath or chest pain. Blood pressure stable. She is due for dialysis today as her regular schedule any way. Allergies Coded Allergies: Oxycodone (Verified Allergy, Intermediate, HIVES,RASH, 04/01/18) PER [employer] Sulfa Antibiotics (Verified Allergy, Intermediate, HIVES,RASH, 04/01/18) PER [employer] Cephalexin (Verified Allergy, Mild, HIVES, 04/01/18) Hydrochlorothiazide w/Triamterene (Verified Allergy, Unknown, UNKNOWN, 04/01) Sulfonylureas (Verified Allergy, Unknown, UNKNOWN, 04/01/18) Uncoded Allergies: CARBONIC (Allergy, Unknown, UNKNOWN, 10/24/17) CRBONIC ANHYDRASE INHIBITORS Inpatient Medications Current Inpatient Medications Medications (Trade) Dose Ordered Sig/Kimmie Route Start Time Stop Time Status Last Admin Dose Admin Morphine Sulfate (MoRPHine SULFATE INJ) If PO analgesic is orde... Q2H PRN IV 04/01/18 16:45 04/15/18 16:44 04/02/18 07:57 1 MG Ondansetron HCl (Zofran Inj) 4 mg Q6H PRN IV 04/01/18 16:45 05/01/18 16:44 Heparin Sodium (Porcine) (Heparin Sq 5000 Unit/0.5ml) 5,000 unit Q12 SQ 04/02/18 09:00 05/02/18 08:59 Tramadol HCl (Ultram Tab) 50 mg Q4H PRN PO 04/01/18 16:45 05/01/18 16:44 04/02/18 04:20 50 MG Acetaminophen (Tylenol Tab) 650 mg Q4 PRN PO 04/01/18 16:45 05/01/18 16:44 Atorvastatin Calcium (Lipitor Tab) 40 mg DAILY PO 04/02/18 09:00 05/02/18 08:59 Bisacodyl (Dulcolax Tab) 5 mg DAILY PRN PO 04/01/18 16:45 05/01/18 16:44 Bumetanide (Bumex Tab) 2 mg QAM PO 04/02/18 09:00 05/02/18 08:59 Calcium Carbonate (Tums Chew Tab) 2,000 mg TIDM PO 04/01/18 18:00 05/01/18 17:59 04/01/18 21:16 2,000 MG Docusate Sodium (coLACE CAP) 100 mg BID PO 04/01/18 21:00 05/01/18 20:59 04/01/18 21:16 100 MG Insulin Glargine (Lantus Solostar Pen) 43 units QAM SC 04/02/18 09:00 05/02/18 08:59 Levothyroxine Sodium (Synthroid Tab) 200 mcg DAILYBB PO 04/02/18 06:00 05/02/18 05:59 04/02/18 05:46 200 MCG Levothyroxine Sodium (Synthroid Tab) 50 mcg DAILYBB PO 04/02/18 06:00 05/02/18 05:59 04/02/18 05:46 50 MCG Lidocaine/ Prilocaine (Emla 2.5% Crm) 1 ea TID PRN EXT 04/01/18 16:45 05/01/18 16:44 Metoprolol Tartrate (Lopressor Tab) 25 mg BID PO 04/01/18 21:00 05/01/18 20:59 04/01/18 21:16 25 MG Pantoprazole Sodium (Protonix Tab) 40 mg QAM PO 04/02/18 09:00 05/02/18 08:59 Pramipexole Dihydrochloride (miraPEX TAB) 0.25 mg HS PO 04/01/18 21:00 05/01/18 20:59 04/01/18 21:15 0.25 MG Senna (Senokot Tab) 8.6 mg HS PO 04/01/18 21:00 05/01/18 20:59 04/01/18 21:15 8.6 MG Sertraline HCl (Zoloft Tab) 37.5 mg HS PO 04/01/18 21:00 05/01/18 20:59 04/01/18 21:15 37.5 MG Sodium Bicarbonate (Sodium Bicarbonate Tab) 650 mg QAM PO 04/02/18 09:00 05/02/18 08:59 Miscellaneous Information (Order Awaiting Action) 1 ea QS N/A 04/02/18 00:00 05/02/18 00:00 Cholecalciferol (Vitamin D Tab) 2,000 inter.unit QAM PO 04/02/18 09:00 05/02/18 08:59 Polyethylene (Miralax Powder Packet) 17 gm QAM PO 04/02/18 09:00 05/02/18 08:59 Sevelamer HCl (Renagel Tab) 800 mg QAM PO 04/02/18 09:00 05/02/18 08:59 Insulin Human Regular (novoLIN-R) SLIDING SCALE IF C... ACHS SC 04/01/18 21:00 05/01/18 20:59 04/01/18 21:30 3 UNITS Glucose (Glucose 40% Gel) 15-30 GRAMS 15 GRAMS... UD PRN PO 04/01/18 16:45 05/01/18 16:44 Glucose (Glucose Chew Tab) 4-8 Tablets 4 Tabl... UD PRN PO 04/01/18 16:45 05/01/18 16:44 Dextrose (Dextrose 50% 50ML Syringe) 25-50ML 25ML FOR ... UD PRN IV 04/01/18 16:45 05/01/18 16:44 Glucagon (Glucagon Inj) 1 mg UD PRN SQ 04/01/18 16:45 05/01/18 16:44 Carbohydrates (Carbohydrates For Hypoglycemia) 15-30 GRAMS 15 grams if BSG 54-69... UD PRN PO 04/01/18 16:45 05/01/18 16:44 Family History No known family history of chronic kidney disease or end-stage renal disease. Social History Smoking Status: Former Smoker Drug Use: none Occupation: disabled Review of Systems A complete review of systems was performed. Pertinent positives are noted above. All other systems are negative. Physical Exam Date Time Temp Pulse Resp B/P (MAP) Pulse Ox O2 Delivery O2 Flow Rate FiO2 04/02/18 07:51 36.9 87 18 126/75 (92) 91 Room Air 04/02/18 04:23 37.0 90 18 123/71 (88) 94 Room Air 04/01/18 23:17 37.1 93 16 110/55 (73) 93 Room Air 04/01/18 21:12 36.7 100 20 145/76 (99) 99 Nasal Cannula 2.0 04/01/18 19:50 Nasal Cannula 2.0 04/01/18 19:34 36.5 94 18 147/69 (95) 98 Nasal Cannula 2.0 04/01/18 19:08 36.6 93 22 134/78 (96) 100 Nasal Cannula 2.0 04/01/18 18:30 36.9 92 18 131/57 (81) 99 Nasal Cannula 2.0 04/01/18 18:30 100 Nasal Cannula 2.0 04/01/18 18:15 90 16 115/62 99 Nasal Cannula 2 04/01/18 18:00 36.4 87 16 135/64 99 Nasal Cannula 2 04/01/18 17:50 87 16 154/77 99 Nasal Cannula 2 04/01/18 17:40 93 18 130/52 99 Nasal Cannula 2 04/01/18 17:30 90 19 150/58 95 Nasal Cannula 2 04/01/18 17:20 92 17 155/80 100 Free Flow/Blowby 10 5/9/18 17:10 93 19 170/92 98 Oxymask 10 04/01/18 17:02 36.2 95 16 123/82 100 Oxymask 10 04/01/18 11:17 36.7 87 20 140/78 (98) 98 Room Air GENERAL: Middle-aged female, AAA x 3, pleasant, healthy-appearing, not in any distress. HEENT: Atraumatic, normocephalic. NECK: Supple, no JVD, no carotid bruit appreciated. ENT: No sinus tenderness MOUTH and THROAT: Moist oral mucosa, no oral ulcer or pharyngeal erythema RESPIRATORY: Normal breathing efforts, no accessory muscle use, clear to auscultation bilaterally, no wheezes or rales. CARDIOVASCULAR: S1, S2 normal, rate rhythm regular. ABDOMEN: Soft, nontender, positive bowel sound. MUSCULOSKELETAL: No CVA tenderness. No joint swelling, erythema or tenderness. Normal range of motion. SKIN: No skin rash ACCESS: IJ tunnel dialysis catheter, site with no erythema, discharge or tenderness.Right radiocephalic AV fistula, extreme tenderness and swelling of rt 5th digit, ischemic ulcer in right hand. EXTREMITY: No lower extremity edema NEURO: No gross focal neurological deficit, speech fluent. PSYCHIATRY: Normal mood and judgment Laboratory Results Last 24 Hours Test 04/01/18 11:11 04/01/18 11:22 04/01/18 17:08 04/01/18 17:27 Bedside Glucose 186 mg/dl 173 mg/dl Sodium Level 132 mmol/L 132 mmol/L Potassium Level 5.4 mmol/L 5.8 mmol/L Chloride Level 99 mmol/L 99 mmol/L Carbon Dioxide Level 23 mmol/L 23 mmol/L Anion Gap 10.0 mmol/L 10.0 mmol/L Blood Urea Nitrogen 76 mg/dl 79 mg/dl Creatinine 6.67 mg/dl 6.84 mg/dl Est Creatinine Clear Calc Drug Dose 10.8 ml/min 10.5 ml/min Estimated GFR () 7.2 7.0 Estimated GFR (Non- 6.2 6.0 BUN/Creatinine Ratio 11.2 11.5 Random Glucose 182 mg/dl 180 mg/dl Calcium Level 9.2 mg/dl 9.3 mg/dl White Blood Count 12.97 K/uL Red Blood Count 3.62 M/uL Hemoglobin 11.2 g/dL Hematocrit 35.1 % Mean Corpuscular Volume 97.0 fL Mean Corpuscular Hemoglobin 30.9 pg Mean Corpuscular Hemoglobin Concent 31.9 g/dl Platelet Count 258 K/uL Mean Platelet Volume 10.1 fL Neutrophils (%) (Auto) 69.6 % Lymphocytes (%) (Auto) 20.9 % Monocytes (%) (Auto) 6.9 % Eosinophils (%) (Auto) 0.8 % Basophils (%) (Auto) 0.2 % Neutrophils # (Auto) 9.02 K/uL Lymphocytes # (Auto) 2.71 K/uL Monocytes # (Auto) 0.90 K/uL Eosinophils # (Auto) 0.10 K/uL Basophils # (Auto) 0.03 K/uL RDW Standard Deviation 53.9 fL RDW Coefficient of Variation 15.8 % Immature Granulocyte % (Auto) 1.6 % Immature Granulocyte # (Auto) 0.21 K/uL Hepatitis C Antibody Screen NEG Test 04/01/18 21:11 04/01/18 23:00 04/02/18 05:30 04/02/18 07:54 Bedside Glucose 231 mg/dl Potassium Level 5.3 mmol/L 5.2 mmol/L White Blood Count 9.82 K/uL Red Blood Count 3.03 M/uL Hemoglobin 9.4 g/dL Hematocrit 29.3 % Mean Corpuscular Volume 96.7 fL Mean Corpuscular Hemoglobin 31.0 pg Mean Corpuscular Hemoglobin Concent 32.1 g/dl Platelet Count 215 K/uL Mean Platelet Volume 9.0 fL Neutrophils (%) (Auto) 72.9 % Lymphocytes (%) (Auto) 16.7 % Monocytes (%) (Auto) 8.8 % Eosinophils (%) (Auto) 0.4 % Basophils (%) (Auto) 0.2 % Neutrophils # (Auto) 7.16 K/uL Lymphocytes # (Auto) 1.64 K/uL Monocytes # (Auto) 0.86 K/uL Eosinophils # (Auto) 0.04 K/uL Basophils # (Auto) 0.02 K/uL RDW Standard Deviation 54.2 fL RDW Coefficient of Variation 15.8 % Immature Granulocyte % (Auto) 1.0 % Immature Granulocyte # (Auto) 0.10 K/uL Prothrombin Time 12.5 SECONDS Prothromb Time International Ratio 1.2 Sodium Level 136 mmol/L Chloride Level 100 mmol/L Carbon Dioxide Level 25 mmol/L Anion Gap 11.0 mmol/L Blood Urea Nitrogen 88 mg/dl Creatinine 7.51 mg/dl Est Creatinine Clear Calc Drug Dose 9.7 ml/min Estimated GFR () 6.2 Estimated GFR (Non- 5.4 BUN/Creatinine Ratio 11.8 Random Glucose 196 mg/dl Calcium Level 8.5 mg/dl Test 04/02/18 08:24 Impression (1) Secondary hyperparathyroidism of renal origin (2) Hypertension (3) End-stage renal disease on hemodialysis (4) Anemia (5) steal syndrome right arm 57-year-old female with end-stage renal disease on hemodialysis on Friday, , Friday at [facility] inpatient dialysis unit. Her last dialysis treatment was on Friday. She was admitted electively yesterday for drill procedure for steal syndrome associated with AV fistula. Had procedure uneventful. Potassium was running high, 5.8 last night which improved after patient was given Bumex and Kayexalate. Currently blood pressure, volume status acceptable potassium improved to 5.2. She is otherwise asymptomatic. She is due for dialysis this morning. Recommendations --hemodialysis now as her regular schedule, for 4 hours, ultrafiltration goal to reach estimated dry weight, will dialyze with 2 K bath. currently blood pressure and volume status acceptable. Electrolytes acceptable. --Epogen 45170 units time 1 dose now -- continued Nephrocaps and renal diet -- dose medications for GFR less than 10 --Avoid IV fluid --continue on current antihypertensive medications and low-salt diet. Thank you for allowing me to participate in your patient's care. It was a pleasure to see Korteny
--- NOTE | 2018-04-02 09:48 | OPERATIVE REPORT ---
DATE OF OPERATION: 04/01/2018 PREOPERATIVE DIAGNOSIS: Right arm steal syndrome. POSTOPERATIVE DIAGNOSIS: Right arm steal syndrome. PROCEDURE: DRIL procedure of right upper extremity. Harvesting of the left greater saphenous vein. SURGEON: Dayton Meza MD. INDUSTRY ANALYST: Luann Magana PA-C ANESTHETIC: General endotracheal. PROCEDURE INDICATIONS: The patient is a 57-year-old female with a right upper arm fistula. She has steal syndrome in the right arm with necrotic ulcerations of the fingertips. Distal revascularisation with interval ligation was recommended. She understood the risks, options, and benefits and agreed to have this procedure. The patient was taken to operating room and placed in supine position after the left leg and right arm were prepped and draped in a sterile manner. A longitudinal incision was made over the distal brachial artery at the antecubital fossa. This was done as an S-shaped incision. There was an eschar present from the previous incision which was excised. No infection was noted. The incision was carried down to where the arterial anastomosis was seen from the AV fistula. It was then dissected further down to where the brachial artery was seen and divided into the radial and ulnar artery. This was all isolated. A longitudinal incision was then made in the upper arm just beyond the anterior axillary line. This was carried down until the brachial artery was identified. It was of good caliber and mild calcifications present. Good pulse was felt. Next, I made a longitudinal incision in the thigh over the saphenous vein. It was isolated. An approximately 15 cm saphenous vein was harvested from just beyond the groin down to the knee. All side branches were ligated with silk sutures as well as the distal and proximal ends of the saphenous vein. The saphenous vein was then removed. Adequate hemostasis was obtained and thigh was eventually closed at the end of the procedure with a 3-0 Vicryl subcutaneous layer and bobby for the skin. The saphenous vein was then dilated gently. Two side branches were seen. It needed to be tied and this was done with silk sutures. At this point, the patient was heparinized. The brachial artery in the upper arm was then clamped proximally and distally. Longitudinal arteriotomy was then made. The saphenous vein was then beveled and reversed and an end-to-side anastomosis was accomplished. This was done with a 6-0 Prolene suture in the usual vascular fashion. Once this was completed, a clamp was placed on the saphenous vein and the clamps were removed and the brachial artery. Using an aortic clamp, a subcutaneous tunnel was made and the vein was passed through the tunnel without difficulty. Good flow was seen through the vein once it was passed and no kinking was identified. The distal brachial artery beyond the arterial anastomosis fistula was then clamped proximal and distally. Longitudinal arteriotomy was then made. The lumen had fairly good caliber distally. Proximally, there was some fibrous hyperplasia present from the fistula seen. The saphenous vein was then bevelled and an end-to-side anastomosis was accomplished again with a 6-0 Prolene suture in the usual vascular fashion. Prior to completing the closure, backbleeding and forward bleeding was allowed to occur and final few sutures were placed and securely tied. Clamps were then removed. Excellent flow was heard through the brachial vein distally. The brachial artery between the arterial anastomosis of the fistula and the bypass anastomosis were then ligated with silk sutures. Again, excellent flow was seen distally. The fistula also had good flow. At that point, the 2 arm incisions were also closed with a running 3-0 Vicryl suture for the subcutaneous layer and bobby for the skin. We did place a few nylon sutures on the incision at the antecubital fossa at the angle where the old area in which the eschar was seen. Sterile dressings were applied to the wound. The hand at the end of procedure was pink with excellent capillary refill and good Doppler signals. The patient left the operating room in satisfactory condition and tolerated the procedure well. I attest to the content of the Intraoperative Record and any orders documented therein. Any exception s are noted below.
[2018-04-02] MEDS ORDERED: EPOETIN ALFA 10,000 UNITS/ML VIAL IV SCH (10:00)
--- NOTE | 2018-04-02 14:30 | Progress Note ---
Progress Note Date of Service: April 02, 2018. Subjective 57 yo F with multiple medical problems, POD #1 after RUE DRIL procedure and LLE saphenous v harvest, seenin f/u today. Pt states she is having severe pain, requiring morphine per RN. Admits nausea, but states was able to keep down small amt of food today. No other new complaints. Objective Vital Signs Vital Signs Past 12 Hours Date Time Temp Pulse Resp B/P (MAP) Pulse Ox O2 Delivery O2 Flow Rate FiO2 04/02/18 12:58 36.9 103 16 103/63 (76) 91 Room Air 04/02/18 12:49 37.0 97 103/44 (63) 04/02/18 12:45 100 94/41 04/02/18 12:30 100 100/42 04/02/18 12:00 100 93/45 04/02/18 11:30 97 98/48 04/02/18 11:00 96 110/55 04/02/18 10:30 96 114/53 04/02/18 10:00 100 129/56 04/02/18 09:30 90 131/55 04/02/18 09:11 37.1 91 130/56 (80) 04/02/18 09:00 90 120/52 04/02/18 08:57 91 Room Air 04/02/18 08:45 87 117/57 04/02/18 08:00 Room Air 04/02/18 07:51 36.9 87 18 126/75 (92) 91 Room Air 04/02/18 04:23 37.0 90 18 123/71 (88) 94 Room Air Exam CONST: A&O x2, NAD, chronically ill appearing female CHEST: RRR lungs decreased but ctab ABD; soft, nontender, + bs x 4 quad EXT: LLE dressing intact, no shadowing. RUE dressing with mild shadowing. + palpable radial pulse and + thrill RUE AVF. Fingers + cap refill, eschars remain same. Intake & Output 8-Hour Column 04/02/18 04/03/18 04/03/18 16:00 00:00 08:00 Intake Total 130 ml Output Total 1900 ml Balance -1770 ml 24-Hour Column 04/03/18 08:00 Intake Total 130 ml Output Total 1900 ml Balance -1770 ml Laboratory and Microbiology Results Past 24 Hours Test 5/9/18 17:08 04/01/18 17:27 04/01/18 21:11 04/01/18 23:00 Range/Units Bedside Glucose 173 231 70-90 mg/dl White Blood Count 12.97 4.8-10.8 K/uL Red Blood Count 3.62 4.2-5.4 M/uL Hemoglobin 11.2 12.0-16.0 g/dL Hematocrit 35.1 37-47 % Mean Corpuscular Volume 97.0 80-100 fL Mean Corpuscular Hemoglobin 30.9 25-34 pg Mean Corpuscular Hemoglobin Concent 31.9 32-36 g/dl Platelet Count 258 130-400 K/uL Mean Platelet Volume 10.1 7.4-10.4 fL Neutrophils (%) (Auto) 69.6 % Lymphocytes (%) (Auto) 20.9 % Monocytes (%) (Auto) 6.9 % Eosinophils (%) (Auto) 0.8 % Basophils (%) (Auto) 0.2 % Neutrophils # (Auto) 9.02 1.4-6.5 K/uL Lymphocytes # (Auto) 2.71 1.2-3.4 K/uL Monocytes # (Auto) 0.90 0.11-0.59 K/uL Eosinophils # (Auto) 0.10 0-0.5 K/uL Basophils # (Auto) 0.03 0-0.2 K/uL RDW Standard Deviation 53.9 36.4-46.3 fL RDW Coefficient of Variation 15.8 11.5-14.5 % Immature Granulocyte % (Auto) 1.6 % Immature Granulocyte # (Auto) 0.21 0.00-0.02 K/uL Sodium Level 132 136-145 mmol/L Potassium Level 5.8 5.3 3.5-5.1 mmol/L Chloride Level 99 98-107 mmol/L Carbon Dioxide Level 23 21-32 mmol/L Anion Gap 10.0 3-11 mmol/L Blood Urea Nitrogen 79 7-18 mg/dl Creatinine 6.84 0.60-1.20 mg/dl Est Creatinine Clear Calc Drug Dose 10.5 ml/min Estimated GFR () 7.0 Estimated GFR (Non- 6.0 BUN/Creatinine Ratio 11.5 10-20 Random Glucose 180 70-99 mg/dl Calcium Level 9.3 8.5-10.1 mg/dl Hepatitis C Antibody Screen NEG NEG Test 04/02/18 05:30 04/02/18 08:24 04/02/18 13:31 Range/Units White Blood Count 9.82 4.8-10.8 K/uL Red Blood Count 3.03 4.2-5.4 M/uL Hemoglobin 9.4 12.0-16.0 g/dL Hematocrit 29.3 37-47 % Mean Corpuscular Volume 96.7 80-100 fL Mean Corpuscular Hemoglobin 31.0 25-34 pg Mean Corpuscular Hemoglobin Concent 32.1 32-36 g/dl Platelet Count 215 130-400 K/uL Mean Platelet Volume 9.0 7.4-10.4 fL Neutrophils (%) (Auto) 72.9 % Lymphocytes (%) (Auto) 16.7 % Monocytes (%) (Auto) 8.8 % Eosinophils (%) (Auto) 0.4 % Basophils (%) (Auto) 0.2 % Neutrophils # (Auto) 7.16 1.4-6.5 K/uL Lymphocytes # (Auto) 1.64 1.2-3.4 K/uL Monocytes # (Auto) 0.86 0.11-0.59 K/uL Eosinophils # (Auto) 0.04 0-0.5 K/uL Basophils # (Auto) 0.02 0-0.2 K/uL RDW Standard Deviation 54.2 36.4-46.3 fL RDW Coefficient of Variation 15.8 11.5-14.5 % Immature Granulocyte % (Auto) 1.0 % Immature Granulocyte # (Auto) 0.10 0.00-0.02 K/uL Prothrombin Time 12.5 9.0-12.0 SECONDS Prothromb Time International Ratio 1.2 0.9-1.1 Sodium Level 136 136-145 mmol/L Potassium Level 5.2 3.5-5.1 mmol/L Chloride Level 100 98-107 mmol/L Carbon Dioxide Level 25 21-32 mmol/L Anion Gap 11.0 3-11 mmol/L Blood Urea Nitrogen 88 7-18 mg/dl Creatinine 7.51 0.60-1.20 mg/dl Est Creatinine Clear Calc Drug Dose 9.7 ml/min Estimated GFR () 6.2 Estimated GFR (Non- 5.4 BUN/Creatinine Ratio 11.8 10-20 Random Glucose 196 70-99 mg/dl Calcium Level 8.5 8.5-10.1 mg/dl Bedside Glucose 185 70-90 mg/dl Hepatitis B Surface Antibody POS ASSESSMENT and PLAN: s/p RUE DRIL procedure and LLE saphenous v harvest RUE AVF with steal syndrome ESRD on HD Pt doing ok postop. Remains nauseated despite zofran, also requiring significant amt of morphine with only partial pain control. Will see tomorrow AM for possible discharge.
[2018-04-02] MEDS: SODIUM BICARBONATE 650 MG TAB PO SCH (14:35)
[2018-04-02] MEDS: BUMETANIDE 1 MG TAB PO SCH (14:36)
[2018-04-02] MEDS: CHOLECALCIFEROL 1000 INTER.UNIT TAB PO SCH (14:36)
[2018-04-02] MEDS: SEVELAMER HYDROCH 800 MG TAB PO SCH (14:36)
[2018-04-02] MEDS: ATORVASTATIN 40 MG TAB PO SCH (14:36)
[2018-04-02] MEDS: PANTOprazole SOD 40 MG TAB PO SCH (14:36)
[2018-04-02] MEDS: INSULIN GLARGINE SOLOSTAR 100 UNITS/ML 3 ML PEN SC SCH (14:41)
[2018-04-02] MEDS: PRAMIPEXOLE DIHYDROCHLORIDE 0.25MG TAB PO SCH (21:10)
[2018-04-02] MEDS: SERTRALINE HCL 50 MG TAB PO SCH (21:10)
[2018-04-02] MEDS: SENNA 8.6 MG TAB PO SCH (21:10)
[2018-04-03 00:37] VITALS: TEMP 37.4
[2018-04-03] MEDS: TRAMADOL HCL 50 MG TAB PO PRN ×2 (02:17→06:27)
[2018-04-03] MEDS: LEVOTHYROXINE 50 MCG TAB PO SCH (05:46)
[2018-04-03] MEDS: LEVOTHYROXINE 200 MCG TAB PO SCH (05:46)
[2018-04-03 07:50] VITALS: BP 91/52; PULSE 100; TEMP 37.2; O2SAT 92
[2018-04-03] MEDS: METOPROLOL TARTRATE 25 MG TAB PO SCH (08:44)
[2018-04-03] MEDS: PANTOprazole SOD 40 MG TAB PO SCH (08:44)
[2018-04-03] MEDS: DOCUSATE SODIUM 100 MG CAP PO SCH (08:45)
[2018-04-03] MEDS: SODIUM BICARBONATE 650 MG TAB PO SCH (08:45)
[2018-04-03] MEDS: CHOLECALCIFEROL 1000 INTER.UNIT TAB PO SCH (08:45)
[2018-04-03] MEDS: ATORVASTATIN 40 MG TAB PO SCH (08:45)
[2018-04-03] MEDS: BUMETANIDE 1 MG TAB PO SCH (08:46)
[2018-04-03] MEDS: SEVELAMER HYDROCH 800 MG TAB PO SCH (08:46)
[2018-04-03] MEDS: POLYETHYLENE (MIRALAX) 17 GM PACK PO SCH (08:46)
[2018-04-03] MEDS: CALCIUM CARBONATE 500 MG CHEWABLE PO SCH (08:47)
[2018-04-03] MEDS: INSULIN HUMAN REGULAR SC SCH (08:57)
[2018-04-03] MEDS: INSULIN GLARGINE SOLOSTAR 100 UNITS/ML 3 ML PEN SC SCH (08:58)
[2018-04-03] MEDS: HEPARIN SOD 5000 UNIT/0.5 ML CARP SQ SCH (08:58)
--- NOTE | 2018-04-03 09:10 | Nephrology Progress Note ---
Nephrology Progress Note Date of Service April 03, 2018. Chief Complaint F/U for hyperkalemia and hemodialysis for end-stage renal disease Subjective shannon was seen and examined. Doing well, denies any symptoms. Had HD yesterday. Review of Systems A complete review of systems was performed. Pertinent positives are noted above. All other systems are negative. Vital Signs Last 8 Hrs Date Time Temp Pulse Resp B/P (MAP) Pulse Ox O2 Delivery O2 Flow Rate FiO2 04/03/18 07:50 37.2 100 16 91/52 (65) 92 Room Air 04/03/18 00:37 37.4 Last Recorded Weight Weight (Kilograms): 109.800 Physical Exam General Appearance: no apparent distress Head: normocephalic, atraumatic Neck: supple Respiratory/Chest: lungs clear Cardiovascular: regular rate, rhythm Extremities/Musculoskelatal: no pedal edema Neurologic/Psych: alert, oriented x 3 Family History No known family history of chronic kidney disease or end-stage renal disease. Social History Drug Use: none Occupation: disabled Laboratory Results Past 24 Hours Test 04/02/18 08:24 04/02/18 13:07 04/02/18 13:31 04/02/18 17:16 Bedside Glucose 185 mg/dl (70-90) 165 mg/dl (70-90) 211 mg/dl (70-90) Hepatitis B Surface Antigen NEG (NEG) Hepatitis B Surface Antibody POS Test 04/02/18 20:34 Bedside Glucose 191 mg/dl (70-90) Allergies Coded Allergies: Oxycodone (Verified Allergy, Intermediate, HIVES,RASH, 04/01/18) PER [facility] Sulfa Antibiotics (Verified Allergy, Intermediate, HIVES,RASH, 04/01/18) PER [facility] Cephalexin (Verified Allergy, Mild, HIVES, 04/01/18) Hydrochlorothiazide w/Triamterene (Verified Allergy, Unknown, UNKNOWN, 04/01) Sulfonylureas (Verified Allergy, Unknown, UNKNOWN, 04/01/18) Uncoded Allergies: CARBONIC (Allergy, Unknown, UNKNOWN, 10/24/17) CRBONIC ANHYDRASE INHIBITORS Medications Current Inpatient Medications Medications (Trade) Dose Ordered Sig/Kimmie Route Start Time Stop Time Status Last Admin Dose Admin Morphine Sulfate (MoRPHine SULFATE INJ) If PO analgesic is orde... Q2H PRN IV 04/01/18 16:45 04/15/18 16:44 04/02/18 20:55 4 MG Ondansetron HCl (Zofran Inj) 4 mg Q6H PRN IV 04/01/18 16:45 05/01/18 16:44 04/02/18 13:11 4 MG Heparin Sodium (Porcine) (Heparin Sq 5000 Unit/0.5ml) 5,000 unit Q12 SQ 04/02/18 09:00 05/02/18 08:59 04/02/18 20:59 5,000 UNIT Tramadol HCl (Ultram Tab) 50 mg Q4H PRN PO 04/01/18 16:45 05/01/18 16:44 04/03/18 06:27 50 MG Acetaminophen (Tylenol Tab) 650 mg Q4 PRN PO 04/01/18 16:45 05/01/18 16:44 04/02/18 23:21 650 MG Atorvastatin Calcium (Lipitor Tab) 40 mg DAILY PO 04/02/18 09:00 05/02/18 08:59 04/02/18 14:36 40 MG Bisacodyl (Dulcolax Tab) 5 mg DAILY PRN PO 04/01/18 16:45 05/01/18 16:44 Bumetanide (Bumex Tab) 2 mg QAM PO 04/02/18 09:00 05/02/18 08:59 04/02/18 14:36 2 MG Calcium Carbonate (Tums Chew Tab) 2,000 mg TIDM PO 04/01/18 18:00 05/01/18 17:59 04/02/18 18:30 2,000 MG Docusate Sodium (coLACE CAP) 100 mg BID PO 04/01/18 21:00 05/01/18 20:59 04/02/18 21:08 100 MG Insulin Glargine (Lantus Solostar Pen) 43 units QAM SC 04/02/18 09:00 05/02/18 08:59 04/02/18 14:41 43 UNITS Levothyroxine Sodium (Synthroid Tab) 200 mcg DAILYBB PO 04/02/18 06:00 05/02/18 05:59 04/03/18 05:46 200 MCG Levothyroxine Sodium (Synthroid Tab) 50 mcg DAILYBB PO 04/02/18 06:00 05/02/18 05:59 04/03/18 05:46 50 MCG Lidocaine/ Prilocaine (Emla 2.5% Crm) 1 ea TID PRN EXT 04/01/18 16:45 05/01/18 16:44 Metoprolol Tartrate (Lopressor Tab) 25 mg BID PO 04/01/18 21:00 05/01/18 20:59 04/02/18 21:08 25 MG Pantoprazole Sodium (Protonix Tab) 40 mg QAM PO 04/02/18 09:00 05/02/18 08:59 04/02/18 14:36 40 MG Pramipexole Dihydrochloride (miraPEX TAB) 0.25 mg HS PO 04/01/18 21:00 05/01/18 20:59 04/02/18 21:10 0.25 MG Senna (Senokot Tab) 8.6 mg HS PO 04/01/18 21:00 05/01/18 20:59 04/02/18 21:10 8.6 MG Sertraline HCl (Zoloft Tab) 37.5 mg HS PO 04/01/18 21:00 05/01/18 20:59 04/02/18 21:10 37.5 MG Sodium Bicarbonate (Sodium Bicarbonate Tab) 650 mg QAM PO 04/02/18 09:00 05/02/18 08:59 04/02/18 14:35 650 MG Miscellaneous Information (Order Awaiting Action) 1 ea QS N/A 04/02/18 00:00 05/02/18 00:00 Cholecalciferol (Vitamin D Tab) 2,000 inter.unit QAM PO 04/02/18 09:00 05/02/18 08:59 04/02/18 14:36 2,000 INTER.UNIT Polyethylene (Miralax Powder Packet) 17 gm QAM PO 04/02/18 09:00 05/02/18 08:59 Sevelamer HCl (Renagel Tab) 800 mg QAM PO 04/02/18 09:00 05/02/18 08:59 04/02/18 14:36 800 MG Insulin Human Regular (novoLIN-R) SLIDING SCALE IF C... ACHS SC 5/9/18 21:00 05/01/18 20:59 04/02/18 20:59 1 UNITS Glucose (Glucose 40% Gel) 15-30 GRAMS 15 GRAMS... UD PRN PO 04/01/18 16:45 05/01/18 16:44 Glucose (Glucose Chew Tab) 4-8 Tablets 4 Tabl... UD PRN PO 04/01/18 16:45 05/01/18 16:44 Dextrose (Dextrose 50% 50ML Syringe) 25-50ML 25ML FOR ... UD PRN IV 04/01/18 16:45 05/01/18 16:44 Glucagon (Glucagon Inj) 1 mg UD PRN SQ 04/01/18 16:45 05/01/18 16:44 Carbohydrates (Carbohydrates For Hypoglycemia) 15-30 GRAMS 15 grams if BSG 54-69... UD PRN PO 04/01/18 16:45 05/01/18 16:44 Impression (1) Secondary hyperparathyroidism of renal origin (2) Hypertension (3) End-stage renal disease on hemodialysis (4) Anemia (5) steal syndrome right arm 57-year-old female with end-stage renal disease on hemodialysis on Friday, , Friday at [facility] inpatient dialysis unit. Her last dialysis treatment was on Friday. She was admitted electively yesterday for drill procedure for steal syndrome associated with AV fistula. Had procedure uneventful. Potassium was running high, 5.8 last night which improved after patient was given Bumex and Kayexalate. Currently blood pressure, volume status acceptable potassium improved to 5.2. She is otherwise asymptomatic. She is due for dialysis this morning. Recommendations --had hemodialysis yesterday for 4 hours currently blood pressure and volume status acceptable. --received Epogen 15107 units 1 dose -- continued Nephrocaps and renal diet -- dose medications for GFR less than 10 --Avoid IV fluid --continue on current antihypertensive medications and low-salt diet. --HD tomorrow Will follow
[2018-04-03] MEDS ORDERED: TRAM-10 PO (09:38)
--- NOTE | 2018-04-03 09:45 | Discharge Instructions ---
Discharge Instructions Date of Service April 03, 2018. Admission Reason for Admission: End Stage Renal Disease, Right arm AV fistula with steal syndrome Discharge Discharge Diagnosis / Problem: post Right arm Distal Revascularization with Interval Ligation procedure Discharge Goals Goal(s): Decrease discomfort, Therapeutic intervention Activity Recommendations Activity Limitations: per Instructions/Follow-up section . Instructions / Follow-Up Instructions / Follow-Up 1. May cleanse surgical areas with soap and water and dry gently, no soaking in water. 2. No lifting more than 10 lbs with R arm x 1 week. 3. Leave incisions open to air except L leg/groin fold, place dry 4x4 here to separate skin and keep dry. If drainage occurs from other incision areas, may place 4x4 and paper tape over them. 4. [place] R finger open areas with betadine daily. 5. Needs follow up appt in office with Dr Meza or Luann Magana PA-C, in 2 weeks for staple removal. Call [phone] for appt. Current Hospital Diet Patient's current hospital diet: AHA Diet (Heart Healthy), Renal Diet, Diabetes Type 2 Diet Discharge Diet Recommended Diet: AHA Diet (Heart Healthy), Diabetes Type 2 Diet, Renal Diet Procedures Procedures Performed: DRIL Procedure of Right Arm Fistula, [place] of Greater Left Saphenous Vein Pending Studies Studies pending at discharge: no Medical Emergencies . Who to Call and When: Medical Emergencies: If at any time you feel your situation is an emergency, please call 911 immediately. . Non-Emergent Contact Non-Emergency issues call your: Primary Care Provider, Surgeon . "Provider Documentation" section prepared by Luann Magana. . [place] Drug Monitoring Program Search Results: patient reviewed within database, no issues identified
--- NOTE | 2018-04-03 09:49 | Progress Note ---
Progress Note Date of Service: April 03, 2018. Subjective 57 yo f with multiple medical problems, POD #2 after RUE DRIL procedure and LLE saphenous v harvest, seen in f/u today. Pt pain is better controlled, requiring only oral medications. Pt denies nausea. Objective Vital Signs Vital Signs Past 12 Hours Date Time Temp Pulse Resp B/P (MAP) Pulse Ox O2 Delivery O2 Flow Rate FiO2 04/03/18 07:50 37.2 100 16 91/52 (65) 92 Room Air 04/03/18 00:37 37.4 04/02/18 23:20 Room Air 04/02/18 23:19 38.0 108 16 132/59 (83) 95 Nasal Cannula 2.0 Exam CONST: A&O x2, NAD, chronically ill appearing female CHEST: RRR lungs decreased but ctab ABD; soft, nontender, + bs x 4 quad EXT: Dressings removed today. Incisions C/D/I with bobby. + local tenderness and ecchymosis LLE. + tenderness and edema RUE. +palpable pulse in bypass, + palpable radial pulse and + thrill RUE AVF. Fingers + cap refill, eschars remain same. Laboratory and Microbiology Results Past 24 Hours Test 04/02/18 13:07 04/02/18 13:31 04/02/18 17:16 04/02/18 20:34 Range/Units Bedside Glucose 165 211 191 70-90 mg/dl Hepatitis B Surface Antigen NEG NEG Hepatitis B Surface Antibody POS ASSESSMENT and PLAN: s/p RUE DRIP procedure and LLE saphenous vein harvest ESRD Functioning RUE AVF with Steal syndrome Pt doing well pos top. D/C back to [facility] today. Pt agreeable. WIll see in office in 2 weeks.
[2018-04-03 11:08] VITALS: BP 91/52; PULSE 100; TEMP 37.2; O2SAT 92
--- NOTE | 2018-04-07 01:51 | DISCHARGE SUMMARY ---
ADMISSION DIAGNOSES: 1. Vascular steal syndrome of the right upper extremity. 2. End-stage renal disease on hemodialysis with functioning right arm AV fistula. DISCHARGE DIAGNOSES: 1. Status post DRIL procedure (distal revascularization with interval ligation) of right arm, and harvest of left greater saphenous vein. 2. Right arm vascular steal syndrome. 3. End-stage renal disease on hemodialysis with functioning right arm fistula. DISCHARGE CONDITION: Stable. CONSULTATIONS IN THE HOSPITAL: Included nephrology. PROCEDURES IN THE HOSPITAL: Included DRIL procedure in the right arm and harvesting of the left greater saphenous vein performed on 04/01/2018 with an EBL of 150 mL and no significant complications. HISTORY OF PRESENT ILLNESS: Mrs. Ardon is a 57-year-old female with longstanding history of multiple medical problems including end-stage renal disease, on hemodialysis. She resides currently in a [facility] facility in [place], [place]. She was initially sent to Dr. Meza for evaluation of a malfunctioning fistula and had undergone revision of this fistula a few months ago. Postoperatively, the patient complained of pain at her incision; however, eventually this progressed to pain in her hand and forearm. After further evaluation by ultrasounds, which were initially negative for steal syndrome, she was found to have a rather significant vascular steal through her fistula. She was then recommended to undergo her right arm DRIL procedure with vein harvest due to necrosis of her fingertips and her severe pain. This procedure was done for limb salvage. Patient expressed some confusion over the need for the procedure and further discussion was had with the patient's power of accountant manager, her sister, who consented to the procedure for patient. HOSPITAL COURSE: The patient underwent her right arm DRIL procedure and left leg vein harvest on 04/01/2018. As I said, this was performed without significant complications and moderate blood loss. She did have rather significant pain in her right arm, especially postoperatively which was somewhat difficult to control. She also complained of nausea on postop day 1 and it was felt to be prudent to observe her for another day. On postop day 2, she had improved considerably, was no longer nauseated, and was taking p.o. well. Was taking moderate doses of pain medication and much more comfortable. At that point, she was felt to be stable enough for discharge on postop day 2. PHYSICAL EXAMINATION: VITAL SIGNS: On day of discharge, her vital signs were as follows: A temperature of 37.2, pulse of 100, respiratory rate of 16, blood pressure of 132/59, pulse oximetry of 92% on room air. CONSTITUTIONAL AND GENERAL: Patient is a morbidly obese, chronically ill-appearing, older than stated age appearing elderly female in no acute distress. She is nonambulatory and in a wheelchair. Her left arm is contracted. HEAD: Normocephalic and atraumatic. EYES: EOMI. ENMT: Demonstrates no hearing loss, rhinorrhea, or pharyngeal erythema. NECK: Supple, nontender with midline trachea without masses or crepitus. LUNGS: Demonstrates no dyspnea. They are decreased, but clear. CARDIOVASCULAR: Demonstrates nondisplaced apical impulse with a regular rate and rhythm. Her peripheral pulses are full and equal in all extremities unless otherwise noted, specifically they are normal in her carotid, left brachial and left radial. Her right brachial is difficult to palpate due to her incision and tenderness. However, she has excellent radial and ulnar pulses in her right hand. Her femoral pulses are +2. Her distal pulses are +1. She has brisk capillary refill and no sign of distal ischemia of her lower extremities. Her right fingertips continue to demonstrate black eschars. She does have brisk refill to all of her fingers at this point, however. ABDOMEN: Soft, nontender with normoactive bowel sounds in all 4 quadrants. No guarding or rebound. EXTREMITIES: Her right arm surgical incisions are well approximated with bobby and a suture and healing appropriately. They are tender and there is some edema and local ecchymosis. There is no drainage. Her left thigh incision is also tender to palpation with some mild local ecchymosis and edema. There is no erythema or drainage noted. DIET UPON DISCHARGE: Should be a low cholesterol AHA diabetic and renal diet. MEDICATIONS: Reconciled in the chart and are as per her discharge instructions. FOLLOWUP: Should be with Dr. Meza or his PA, Luann Magana, within 2 weeks for reevaluation of her surgical incisions and removal of bobby. She was advised to call the office with any other questions.
== END 2018-04-03 14:35 | DRG 252 ==
LOC: C.ACU 10:41 → C.MSN 11:35 → UNDOADMIN 11:35 → ENRESERV 17:30
PROVIDERS: ADMIT Surgery Vascular Surgery; ATTEND Surgery Vascular Surgery
PROC: 031 Upper Arteries, Bypass (ICD-10-PCS; principal; 2018-04-02)
PROC: 031 Upper Arteries, Bypass (ICD-10-PCS; principal; 2018-04-02)
PROC: 03L70ZZ Occlusion of Right Brachial Artery, Open Approach (ICD-10-PCS; principal; 2018-04-02)
DX: T82.898A Other specified complication of vascular prosthetic devices, implants and grafts, initial encounter (principal); N18.6 End stage renal disease; N25.81 Secondary hyperparathyroidism of renal origin; E87.5 Hyperkalemia; M79.641 Pain in right hand; D64.9 Anemia, unspecified; Z88.2 Allergy status to sulfonamides; Z88.5 Allergy status to narcotic agent; Z79.4 Long term (current) use of insulin; Y82.8 Other medical devices associated with adverse incidents; Z87.891 Personal history of nicotine dependence

== ENCOUNTER 2018-04-08 12:31 | Day surgery (SDC) | payer OTHER ==
[~2018-04-08] VITALS: Ht 160 cm; Wt 109.0 kg
[~2018-04-08 12:31] MED LIST changes: +ATOR-24 PO; -BISACODYL SUPP; -CEFAZOLIN 2000MG IV PUSH 15 ML IV SCH; -CMD/25 PO; +HUMALOG SQ; -KFL/250 PO; +LIDO1CRE16 TOP; -SODIUM CHLORIDE 0.9% 1000ML IV SCH
[2018-04-08 13:02] VITALS: BP 135/46; PULSE 80; TEMP 36.6; O2SAT 99; Ht 160 cm; Wt 109.0 kg
[2018-04-08] MEDS ORDERED: [UNRECOGNIZED DRUG - OTHER] TOP (14:18)
--- NOTE | 2018-04-08 15:02 | History and Physical ---
History & Physical Date of Service April 08, 2018. History & Physical Chief Complaint Malfunctioning permcath History of Present Illness The patient is a 57 year old female who has fistula in her right arm. She has developed pain and coldness in her right hand and is unable to use it that well. 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 The stenosis was treated by endovascular means. She does have a steal syndrome of the right arm. This was treated with a DRIL procedure. She had a permcath placed which is not working at this time. She is here for an exchange. Allergies Coded Allergies: Oxycodone (Verified Allergy, Intermediate, HIVES, 10/24/17) PER [facility] Sulfa Antibiotics (Verified Allergy, Intermediate, HIVES, 10/24/17) PER [facility] Hydrochlorothiazide w/Triamterene (Verified Allergy, Unknown, UNKNOWN, 10/24/17) Sulfonylureas (Verified Allergy, Unknown, UNKNOWN, 10/24/17) Uncoded Allergies: CARBONIC (Allergy, Unknown, UNKNOWN, 10/24/17) CRBONIC ANHYDRASE INHIBITORS Home Medications Scheduled Atorvastatin (Lipitor), 40 MG PO DAILY Bumetanide (Bumex), 1 TAB PO DAILY Calcium Carbonate (Tums), 1 TAB PO DAILY Cholecalciferol (Vitamin D3), 1 TAB PO DAILY Docusate Sodium (Docusate Sodium), 1 CAP PO BID Insulin Glargine (Lantus), 42 SC QAM Levothyroxine Sodium (Levothyroxine Sodium), 1 TAB PO DAILY Levothyroxine Sodium (Levothyroxine Sodium), 1 TAB PO DAILY Lidocaine-Prilocaine (Lidocaine/Prilocaine), 1 APPLN TOP 3XWK Melatonin (Melatonin), 2 TABS PO QPM Metoprolol Tartrate (Lopressor), 1 TAB PO BID Polyethylene Glycol 3350 (Miralax), 17 GM PO DAILY Pramipexole (Mirapex), 0.25 MG PO HS Senna (Senokot), 2 TAB PO HS Sertraline Hcl (Zoloft), 37.5 MG PO HS Warfarin Sod (Jantoven), 3 MG PO DAILY [Humalog], 4 UNITS SQ HS Scheduled PRN Acetaminophen (Tylenol), 2 TAB PO Q6 PRN for Pain Acetaminophen Tab (Tylenol), 650 MG PO Q4 PRN for Pain Bisacodyl (Bisacodyl), 1 TAB PO UD PRN for Constipation [Bisacodyl Supp], 1 SUPP RE DAILY PRN for Constipation Surgical / Medical History Hx Abdominal Surgery: Yes (3 c-sections) Past Medical/Surgical History: Depression, Diabetes, Kidney Disease, Thyroid Disease Social History Smoking Status: Former Smoker Hx Tobacco Use In Past Year?: No Hx Alcohol Use - Type & Amnt: No Hx Substance Use -Type & Amnt: No Review of Systems Constitutional: No chills, No diaphoresis, No fever, No malaise, No weakness, No weight gain, No weight loss, No sweats, No fatigue, No problem reported Respiratory: No cough, No cyanosis, No RAMIREZ, No hemoptysis, No orthopnea, No PND , No short of breath, No sputum production, No stridor, No wheezing, No dyspnea , No problem reported Cardiovascular: No chest pain, No chest tightness, No chest pressure, No palpitations, No syncope, No diaphoresis, No edema, No intermittent claudication , No orthopnea, No cyanosis, No mumur, No lightheadedness, No paroxysmal nocturnal dyspnea, No problem reported Gastrointestinal: No abdominal pain, No constipation, No diarrhea, No nausea, No vomiting, No anorexia, No appetite changes, No belching, No flatulence, No food intolerance, No hematemesis, No hemorrhoids, No hematochezia, No stool changes, No heartburn, No indigestion, No dysphagia, No rectal bleeding, No problem reported Musculoskeletal: No back pain, No gout, No joint pain, No joint swelling, No muscle pain, No muscle stiffness, No muscle weakness, No neck pain, No problem reported Neurologic: No dizziness, No weakness, No headache, No lethargy, No numbness, No paresthesia, No pre-existing deficit, No seizures, No tics, No tingling, No tremors, No vertigo, No memory loss, No LOC, No problem reported Psychiatric: + depression Physical Exam Constitutional: General Apperance: overweight Level of Distress: NAD Ambulation: ambulating normally Psychiatric: Mental Status: active & alert, normal mood, normal affect Orientation: oriented except where noted, to time, to place, to person Memory: recent memory normal, remote memory normal Head: normocephalic Lungs: Auscultation: breath sounds normal Cardiovascular: Heart Auscultation: RRR Peripheral Pulses: Radial Pulse: normal on the left, decreased on the right Femoral Pulse: normal on the left, normal on the right Abdomen: Inspection & Palpation: soft Musculoskeletal: decrease strength in right hand Extremities: Upper Right: no cyanosis, no edema, no varicosities, no palpable cord, no clubbing, no ulcers, no mottling, patent fistula, Upper Left: no cyanosis, no edema, no varicosities, no palpable cord, no clubbing, no ulcers, no mottling Lower Right: no cyanosis, no edema, no varicosities, no palpable cord, no clubbing, no ulcers, no mottling, Lower Left: no cyanosis, no edema, no varicosities, no palpable cord, no clubbing, no ulcers, no mottling Neurologic: Cranial Nerves: grossly intact Sensation: grossly intact Assessment and Plan Imp: Malfunctioning perm cath Plan: Patient for exchange of her permcath. I have discussed the risks options and benefits of the procedure with the patient. The patient understands the risks options and benefits and agrees to the procedure.
--- NOTE | 2018-04-08 15:02 | Pre Sedation Assessment ---
Pre Sedation Assessment General Date of Sedation: April 08, 2018. Vital Signs Past 12 Hours Date Time Temp Pulse Resp B/P (MAP) Pulse Ox O2 Delivery O2 Flow Rate FiO2 04/08/18 13:02 36.6 80 20 135/46 (75) 99 Room Air Pre-Sedation Airway Assessment Smoking Status: Former Smoker Short Thick Neck: Yes Thyro-mental Distance: > 3 Finger Breadths Oral Cavity: Chipped Teeth Mallampati Classification: Class III ASA Classification: Class III NPO Status Date of Last Intake of Fluids: April 07, 2018 Time of Last Intake of Fluids: 1700 Date of Last Intake of Solids: April 07, 2018 Time of Last Intake of Solids: 1700 Procedure Planning Contraindications for Sedation: None Current Medications Reviewed: Yes Notes The planned sedation has been discussed with the patient. Informed Consent was obtained. I have identified the patient, determined the appropriateness of sedation and have assessed the patient immediately prior to the procedure. All medicine(s) and interventions are by my order.
[2018-04-08] MEDS ORDERED: HEPARIN SOD (PORCINE) 5000 UNIT/ML 1 ML VIAL ONE (15:25)
[2018-04-08] MEDS ORDERED: MIDAZOLAM HCL 1 MG/ML 2ML VIAL ONE (15:26)
[2018-04-08] MEDS ORDERED: CLINDAMYCIN 600 MG/54 ML D5W IV ONE (15:26)
[2018-04-08] MEDS ORDERED: FENTANYL CITRATE INJ 50 MCG/1 ML 2 ML VIAL ONE (15:26)
[2018-04-08] MEDS ORDERED: NURSING VERBAL MED ORDER ONE (15:30)
[2018-04-08] MEDS ORDERED: MIDAZOLAM HCL 1 MG/ML 2ML VIAL IV ONE (15:34)
[2018-04-08] MEDS ORDERED: LIDOCAINE HCL 1% 20 ML VIAL INJ ONE (15:57)
[2018-04-08] MEDS ORDERED: HEPARIN SOD (PORCINE) 5000 UNIT/ML 1 ML VIAL IV ONE (16:05)
--- NOTE | 2018-04-08 16:07 | [facility] Operative Report ---
Operative Report Operative Date April 08, 2018. 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 Specimens A; Perm Catheter Drains None Anesthesia Type IV Sedat Cons RN Only Complication(s) none Disposition no Indications The patient's is a 57-year-old female with a left internal jugular vein PermCath which is malfunctioning. Exchange was recommended.I have discussed the risks options and benefits of the procedure with the patient. The patient understands the risks options and benefits and agrees to the procedure. Description of Procedure Patient was takent to the angio suite and placed in the supine position. The left side of the neck, catheter and chest wall were prepped and draped in a sterile manner. Local anesthesia was then administered to the appropriate areas. A guidewire was then passed centrally under fluoroscopic imaging through the old permcath. The old permcath was removed after freeing up the dacron cuff of the permcath using blunt and sharp dissection. A new 27 cm permcath was inserted without difficulty. The catheter was sutured in placed. Both ports aspirated and flushed easily and were then packed with heparin. A sterile dressing was applied to the catheter. The patient left the angio suite in good condition and tolerated the procedure well. I attest to the content of the Intraoperative Record and any orders documented therein. Any exceptions are noted below.
--- NOTE | 2018-04-08 16:11 | Post Sedation Assessment ---
Post Sedation Assessment General Date of Sedation April 08, 2018. Vital Signs: Vital Signs Past 12 Hours Date Time Temp Pulse Resp B/P (MAP) Pulse Ox O2 Delivery O2 Flow Rate FiO2 04/08/18 15:45 Mask 2 04/08/18 13:02 36.6 80 20 135/46 (75) 99 Room Air Post Procedure Recovery Score Activity: (2) Moves 4 extremities * Respiration: (2) Deep breath/cough Circulation: (2) +/-20% PreAnes Value Consciousness: (2) Fully Awake Oxygen Saturation: (2) > 92% On Room Air Post Anesthesia Score: 10 Discharge Sedation Level of Care: Fast Track Phase II Post Sedation Plan On clinical assessment, the patient appears to have tolerated the sedation without complications. Patient is recovering as anticipated. Patient will continue to be monitored by nursing and may be discharged when sedation discharge criteria are met per below protocol. Upon Completions of procedure up to an additional 15 minutes, continue every 5 minute vital signs and the P.A.R. score; then discharge to a Phase I or Fast Track to Phase II per the following guidelines: * Discharge Patient to appropriate Phase II area if PAR is 8 or greater or return to pre- procedure baseline. The post - procedure orders will be as directed. * If PAR score is less than 8 or not return to pre-procedure baseline then patient will follow Phase I monitoring till PAR is reached for Phase II. The Phase I may be done in procedure room or may call to secure a Phase I area. * If naloxone or flumazenil are used for reversal, hold in Phase I for an additional 60 -120 minutes before discharge to Phase II. Please call the Sedation Physician to re-evaluate and complete post-note for discharge to Phase II area. Do NOT discharge from procedure sedation or Phase 1 until post- sedation evaluation note is complete by procedure /sedation MD Sedation Discharge Instructions to be given to the patient at discharge to home.
--- NOTE | 2018-04-08 16:13 | Discharge Instructions ---
Discharge Instructions Date of Service April 08, 2018. Visit Reason for Visit: End Stage Renal Disease Discharge Discharge Diagnosis / Problem: Malfunctioning permcath Discharge Goals Goal(s): Therapeutic intervention Activity Recommendations Activity Limitations: resume your previous activity Anesthesia . Post Anesthesia Instructions: If you have had General Anesthesia or IV Sedation: * Do not drive today. * Resume driving when surgeon permits. * Do not make important decisions or sign legal documents today. * Call surgeon for: 1. Temperature elevations greater than 101 degrees F. 2. Uncontrollable pain. 3. Excessive bleeding. 4. Persistent nausea and vomiting. 5. Medication intolerance (nausea, vomiting or rash). * For nausea and vomiting use only clear liquids such as: tea, soda, bouillon until nausea subsides, then gradually increase diet as tolerated. * If you have any concerns or questions, call your surgeon's office. If physician is unavailable and it is an emergency, call 911 or go to the nearest emergency room. . Instructions / Follow-Up Instructions / Follow-Up Call [phone] with any questions or concerns. Take this to dialysis with you. May use permcath for dialysis SPECIAL CARE INSTRUCTIONS: Medications: * Continue to take your medications as directed. If you have been given a prescription for Plavix, please fill it immediately and take as directed. Incision Care: * Your puncture site may have some bruising and minor swelling for about one week. * You will have a small dressing covering your puncture site. You may remove the dressing after 24 hours and shower. You may let the warm soapy water run over it, but be sure to dry the puncture site well and keep it dry. * DO NOT IMMERSE THE INCISION IN A TUB/POOL/etc. UNTIL HEALED. * Puncture sites should be kept covered with a band-aid until it begins to heal. Restrictions: * Depending on whether you leg or arm was punctured to access the arteries, you will be required to lay flat, hold your arm still, or both, for about 4 hours after the procedure to prevent bleeding. * Limit your activity for the first 48 hours. You may walk and go up and down steps. Avoid excessive bending or movement at the puncture site. Possible Complications: * Excessive Swelling - after blood flow is improved you may notice increased swelling in the lower legs. This is a normal response. This usually depends on the amount of blockages in the leg, how long they have been there prior to your procedure and how much blood flow was restored. Elevating your legs will help to improve this. Please notify our office ([phone] ) if the swelling does not go away after lying in bed overnight. * Infection/Drainage/Bleeding - Drainage or bleeding from the puncture site should be minimal. If you have excessive bleeding or drainage, call our office ([phone]) right away. * Pain - You may experience some mild pain or soreness at your puncture site. If your pain does not improve, please contact our office ([phone]). Call your doctor and seek emergent treatment if you develop: * Temperature above 101 degrees * Any fever or chills * Any redness or purulent drainage from the puncture site * Any new dusky/blue colored toes or feet with coolness or sharp or aching pain. SKIN IRRITATION: * You may experience some redness and/or swelling in the area where radiation was administered. If any skin irritation occurs, please contact your family physician. FOLLOW UP VISIT: Keep any scheduled doctor appointments. Diet Recommendations Recommended Home Diet: resume previous diet Procedures Procedures Performed: Perm Cath Exchange Fluoro Moderate Sedation [id number] Pending Studies Studies pending at discharge: no Medical Emergencies . Who to Call and When: Medical Emergencies: If at any time you feel your situation is an emergency, please call 911 immediately. . Non-Emergent Contact Non-Emergency issues call your: Surgeon . . "Provider Documentation" section prepared by Dayton Meza. .
[2018-04-08 16:20] VITALS: BP 107/66; PULSE 80; TEMP 36.4; O2SAT 99
[2018-04-08 16:50] VITALS: BP 100/48; PULSE 79; TEMP 36.8; O2SAT 99
== END 2018-04-08 17:05 | disposition home or self-care (01) ==
LOC: C.ACU 12:31
PROVIDERS: ATTEND Surgery Vascular Surgery
DX: T82.898A Other specified complication of vascular prosthetic devices, implants and grafts, initial encounter (principal); Y71.2 Prosthetic and other implants, materials and accessory cardiovascular devices associated with adverse incidents; Z95.828 Presence of other vascular implants and grafts; E11.9 Type 2 diabetes mellitus without complications; Z88.5 Allergy status to narcotic agent; Z88.2 Allergy status to sulfonamides; Z79.4 Long term (current) use of insulin; Z79.01 Long term (current) use of anticoagulants; Z87.891 Personal history of nicotine dependence

== ENCOUNTER 2018-05-26 16:27 | Inpatient (IN) | payer OTHER ==
[~2018-05-26] VITALS: Ht 160 cm; Wt 114.1 kg
[~2018-05-26 16:27] MED LIST changes: +ACET-1311 PO; -ACET-1693 PO; +AQUACEL EXT; +BISA1TAB25 PO; -CDXG40WC TP; -CHOL20007 PO; +CHOL20009 PO; -DLC5 PO; -HUMALOG SQ; +INSDGI SC; -INSDGIPEN SC; +INSU100I SC; +LEVO1TAB33 PO; -LEVO50TA PO; +LEVO50TA6 PO; -LIDO1CRE16 TOP; -MELA1TAB49 PO; +MELA1TAB5 PO; +MRLP17X PO; +PANT1TAB3 PO; -PANT40TA PO; -POLY335019 PO; -PRAM0.1212 PO; +PRAM0.259 PO; +SEVE1TAB PO; -SEVE800T7 PO; +WARF3TAB6 PO; -humalog SQ
[2018-05-26 22:44] VITALS: BP 127/64; PULSE 88; TEMP 37.2; O2SAT 95
[2018-05-26] MEDS ORDERED: BISACODYL 5 MG TABEC PO PRN (23:00)
[2018-05-26] MEDS ORDERED: CARBOHYDRATES FOR HYPOGLYCEMIA PO PRN (23:00)
[2018-05-26] MEDS ORDERED: GLUCOSE 40% GEL 15 GM TUBE PO PRN (23:00)
[2018-05-26] MEDS ORDERED: DEXTROSE 50% 50 ML SYR IV PRN (23:00)
[2018-05-26] MEDS ORDERED: ACETAMINOPHEN 325 MG TAB PO PRN (23:00)
[2018-05-26] MEDS ORDERED: GLUCAGON FOR INJ 1 MG VIAL SQ PRN (23:00)
[2018-05-26] MEDS ORDERED: PIPERACILL/TAZOBAC CONSULT ACTIVE PRN (23:00)
[2018-05-26] MEDS ORDERED: VANCOMYCIN CONSULT ACTIVE PRN (23:00)
[2018-05-26] MEDS ORDERED: ONDANSETRON INJ 2 MG/ML 2 ML VIAL IV PRN (23:00)
[2018-05-26] MEDS ORDERED: GLUCOSE 10 TABS/TUBE PO PRN (23:00)
--- NOTE | 2018-05-26 23:41 | History and Physical ---
History & Physical Date & Time of Service: May 26, 2018 at 23:17 Chief Complaint: Wound Dehiscence Primary Care Physician: Marco Connolly M.D. History of Present Illness The patient is a 57-year-old female with a past medical history of HLD, CVA, T2Ds, CHF, hypothyroidism, hypertension, GERD, recurrent UTI, Afib (on Coumadin) , CAD, Depression, right arm vascular steal syndrome, and chronic renal failure that presents with an infection of her right AV fistula. The patient is currently at [place] and was transferred to us from [facility] with no associated history or documentation or [facility]. The patient was here 2 weeks ago and seen by Dr. Meza for a distal revascularization with interval ligation of the right arm. The patient appears to be a bad historian and has no associated history with her so it is difficult to estimate the duration of time that she has had the infection. The patient is also a poor historian about any medication changes and only states that she "gets injections in the mornings". She states that she has been having this infection for the past "year". She does appreciate at this time that there is mild tenderness over the AV fistula of the right arm, and it has continued to be red and have discharge over the past "while". At this time she denies any acute symptoms including fever, chills, sweats, abdominal pain, back pain, burning on urination, headache, or any other acute complaints. Past Medical/Surgical History Medical Problems: (1) Anemia (2) AV fistula infection (3) Azotemia (4) Dialysis AV fistula malfunction (5) End-stage renal disease on hemodialysis (6) Hypertension (7) Hyponatremia (8) Secondary hyperparathyroidism of renal origin (9) steal syndrome right arm Social History Smoking Status: Former Smoker Drug Use: none Occupational Status: disabled Immunizations History of Influenza Vaccine: Unknown History of Tetanus Vaccine?: Unknown History of Pneumococcal: Unknown History of Hepatitis B Vaccine: Unknown Allergies Coded Allergies: Oxycodone (Verified Allergy, Intermediate, HIVES,RASH, 05/08/18) [facility] Sulfa Antibiotics (Verified Allergy, Intermediate, HIVES,RASH, 05/08/18) [facility] Cephalexin (Verified Allergy, Mild, HIVES, 05/08/18) Hydrochlorothiazide w/Triamterene (Verified Allergy, Unknown, UNKNOWN, ) Sulfonylureas (Verified Allergy, Unknown, UNKNOWN, 05/08/18) Uncoded Allergies: CARBONIC (Allergy, Unknown, UNKNOWN, 10/24/17) CRBONIC ANHYDRASE INHIBITORS Home Medications Scheduled Atorvastatin (Lipitor), 40 MG PO DAILY Bumetanide (Bumex), 2 MG PO DAILY Calcium Carbonate (Tums), 4 TAB PO TID Cholecalciferol (Vitamin D), 1 TAB PO DAILY Docusate Sodium (Docusate Sodium), 1 CAP PO BID Insulin Glargine (Lantus), 45 UNIT SC QAM Insulin Lispro (Human) (Humalog), 1 DOSE SC TID Levofloxacin (Levaquin), 500 MG PO DAILY Levothyroxine Sodium (Levothyroxine Sodium), 1 TAB PO QAM Levothyroxine Sodium (Levothyroxine Sodium), 1 TAB PO QAM Melatonin (Kp Melatonin), 1 TAB PO HS Metoprolol Tartrate (Lopressor) (Lopressor), 25 MG PO BID Pantoprazole (Protonix), 40 MG PO DAILY Polyethylene (Miralax), 1 DOSE PO DAILY Pramipexole Dihydrochloride (Pramipexole Dihydrochlori), 1 TAB PO HS Senna (Senokot), 1 TAB PO HS Sertraline (Zoloft), 1.5 TAB PEG HS Sevelamer Hydroch (Renagel), 800 MG PO BIDM Sodium Bicarbonate (Antacid) (Sodium Bicarbonate), 1 TAB PO DAILY Warfarin Sod (Jantoven), 3 MG PO DAILY [Aquacel Cream], 1 APPLN EXT DIRECTED Scheduled PRN Acetaminophen (Tylenol), 650 MG PO Q6H PRN for Pain Bisacodyl (Bisacodyl Ec), 1 TAB PO DAILY PRN for Constipation Tramadol (Ultram), 50 MG PO Q4H PRN for Pain Tramadol (Ultram), 50 MG PO Q4H PRN for Pain Review of Systems Constitutional: No fever, No chills, No sweats, No fatigue Eyes: + worsening of vision Respiratory: No cough, No sputum, No shortness of breath Cardiovascular: No chest pain, No palpitations Abdomen: No pain, No nausea, No vomiting, No diarrhea, No constipation Musculoskeletal: + problem reported (Right arm pain), No swelling Genitourinary - Female: No dysuria, No urinary frequency, No urinary urgency Endocrine: No fatigue Integumentary: + problem reported (Erythema and discharge from the right AV fistula) Physical Exam Vital Signs Date Time Temp Pulse Resp B/P (MAP) Pulse Ox O2 Delivery O2 Flow Rate FiO2 05/26/18 22:44 37.2 88 20 127/64 (85) 95 Room Air General Appearance: no apparent distress, + thin Head: normocephalic, atraumatic Eyes: normal inspection, sclerae normal Neck: supple, no carotid bruits Respiratory/Chest: chest non-tender, lungs clear, normal breath sounds Cardiovascular: regular rate, rhythm, no edema, no gallop Abdomen/GI: normal bowel sounds, non tender, soft Back: normal inspection, no CVA tenderness Extremities/Musculoskelatal: normal inspection, no calf tenderness Neurologic/Psych: alert, oriented x 3 Skin: + pertinent finding (Multiple sutures in place over surgical wound from right AV fistula. There is mild surrounding erythema with intra-wound discharge that is white and yellow color. The wound is not bleeding at this time although able to express pus from the wound. Tender to palpation over the infected area. Patient has full range of motion of the right elbow. No significant swelling over the elbow. Patient also appears to have wounds over her hand that appear to be well-healing clean, dry, intact most likely secondary to vascular effects from her diabetes.) Diagnostics Laboratory Results Results Past 24 Hours Test 05/26/18 23:14 Range/Units Microbiology Results 05/26/18 Blood Culture, Ordered Pending 05/26/18 Blood Culture, Ordered Pending 05/26/18 Gram Stain, Ordered Pending 05/26/18 Wound Culture, Ordered Pending Impression Assessment and Plan The patient is a 57-year-old female with a past medical history of HLD, CVA, T2Ds, CHF, hypothyroidism, hypertension, GERD, recurrent UTI, Afib (on Coumadin) , CAD, Depression, right arm vascular steal syndrome, and chronic renal failure that presents with an infection of her right AV fistula. Infection of Right AV Fistula - Wound and Blood Culture - IV Vancomycin and Zosyn - Right Elbow X-Ray - CBC, BMP - Consult Vascular Surgery - Will reverse Coumadin with Vitamin K based on INR - NPO after midnight - Admit Med/Surg End-stage renal disease/AV malfunction - Trend BMP - Consider consult to nephrology based on length of stay and dialysis schedule Atrial fibrillation - Continue Metoprolol - Hold Coumadin for time being Hypothyroidism -Continue Synthroid T2DM - Insulin sliding scale - Hold home Lantus while NPO - Glucose check AC and HS Depression - Continue Zoloft HLD -Continue statin DVT Prophaylxis - SCD's - Holding Coumadin at this time Full code Resident Physician Supervision Note: Pt evaluated independently. I discussed the case with the resident and agree with the findings and plan as documented in the note. Any exceptions or clarifications are listed here: 57 y/o F Hx HLD, CVA, DM II, CHF, hypothyroidism, hypertension, GERD, recurrent UTIs, Afib (on Coumadin), CAD, Depression, right arm vascular steal syndrome, ESRD - presenting as a transfer from [facility] due to infection of her AV fistula. OE AAO x 3 S1,2 R CTAB NT, ND No CCE R arm fistula infection/cellulitis is apparent P; She is transferred for potential procedure at the request of her vascular surgeon. She will be kept NPO pending evaluation. We have placed her on Vanc and ZOsyn pending culture results. Coumadin is held and vitamin K provided. She can be bridged with Heparin if she does not proceed to the OR. SS provided for DM She will need dialysis on [facility] if she remains hospitalized. Documented By: Juan David Ryan Resuscitation Status Full Code VTE Prophylaxis Will order VTE Prophylaxis: Yes Reason for no VTE drug order: Contraindicated Resident Tracking Resident Involvement: Resident Care Provided Care Provided: Adult Hospital Medicine
[2018-05-27] VITALS (9 sets, daily range): BP systolic 94–152; BP diastolic 56–70; PULSE 77–91; TEMP 37–37.3; O2SAT 94–97; BMI 42.6
[2018-05-27 00:22] LABS: BASO % 0.2 %; BASO ABS # 0.02 K/uL (0-0.2); EOS % 0.5 %; EOS ABS # 0.06 K/uL (0-0.5); HEMATOCRIT 28.5 % (37-47); HEMOGLOBIN 9.1 g/dL (12.0-16.0); IG# 0.06 K/uL (0.00-0.02); LYMPH % 16.9 %; LYMPH ABS # 2.14 K/uL (1.2-3.4); MEAN CORPUSCULAR HEMOGLOBIN 30.6 pg (25-34); MEAN CORPUSCULAR HGB CONC 31.9 g/dl (32-36); MONO % 7.4 %; MONO ABS # 0.93 K/uL (0.11-0.59); NEUT % 74.5 %; NEUT ABS # 9.42 K/uL (1.4-6.5); PLATELET COUNT 266 K/uL (130-400); RED CELL DISTRIBUTION WIDTH CV 14.5 % (11.5-14.5); RED CELL DISTRIBUTION WIDTH SD 50.5 fL (36.4-46.3); WHITE BLOOD COUNT 12.63 K/uL (4.8-10.8)
[2018-05-27 00:41] LABS: BLOOD UREA NITROGEN 43 mg/dl (7-18); CALCIUM 8.4 mg/dl (8.5-10.1); CARBON DIOXIDE 30 mmol/L (21-32); CREATININE 4.24 mg/dl (0.60-1.20); GLUCOSE 223 mg/dl (70-99); POTASSIUM 4.4 mmol/L (3.5-5.1); SODIUM 133 mmol/L (136-145)
[2018-05-27 00:42] LABS: INR 2.7 (0.9-1.1)
[2018-05-27] MEDS: INSULIN ASPART 100 UNITS/ML 3 ML PEN SC SCH ×6 (00:55→21:00)
[2018-05-27] MEDS ORDERED: VANCOMYCIN IV 2,000 MG in SODIUM CHLORIDE 0.9% 500ML 500 ML IV ONE (02:00)
[2018-05-27] MEDS ORDERED: MoRPHine SULFATE 4 MG/ML 1 ML CARP\\VIAL IV STA (03:31)
[2018-05-27] MEDS ORDERED: PHYTONADIONE INJ 5 MG in SODIUM CHLORIDE 0.9% 50ML 50 ML IV ONE (03:45)
[2018-05-27] MEDS: PIPERACILL/TAZOBAC IV 4.5 GM in DEXTROSE 5% 100ML 100 ML IV SCH ×2 (05:06→15:53)
--- NOTE | 2018-05-27 05:18 | DIAGNOSTIC IMAGING REPORT ---
R ELBOW MIN 3 VIEWS ROUTINE CLINICAL HISTORY: 57 years-old Female presenting with INFECTION. TECHNIQUE: Frontal, oblique, and lateral views of the right elbow were obtained. COMPARISON: None. FINDINGS: Surgical clips project over the antecubital fossa. Atherosclerosis noted. Apparent soft tissue defect along the medial elbow. The apparent defect may be due to skin folds. Apart from this soft tissue abnormality, no convincing evidence of soft tissue emphysema. No osseous erosion or periosteal reaction. The elbow joint is congruent. Mild degenerative changes of the lateral elbow with osteophytosis at the radial head and lateral epicondyle. No acute fracture or malalignment. No evidence of an elbow joint effusion. IMPRESSION: 1. No acute osseous injury. No radiographic evidence of osteomyelitis. 2. Correlate clinically for possible soft tissue defect at the medial elbow versus skin fold. Electronically signed by: Elder Smith M.D. 05/27/2018 5:17 AM Dictated Date/Time: 05/27/2018 5:13 AM
[2018-05-27] MEDS: LEVOTHYROXINE 50 MCG TAB PO SCH (06:19)
[2018-05-27] MEDS: LEVOTHYROXINE 200 MCG TAB PO SCH (06:20)
--- NOTE | 2018-05-27 06:29 | Pharmacy Progress Note ---
Pharmacy Abx Initial Consult Date of Service May 27, 2018. Pharmacy Dosing Scope Date of Consult: 05/26/18 Consultation requested by: Dr. Hdz Pharmacy is consulted to initiate Vancomycin and Zosyn dosing therapy, order appropriate labs and adjust drug dose/frequency. Subjective The patient is a 57 year old female directly admitted on May 26, 2018 at 22:27 from [facility]. She arrives with no records, med reconciliation etc per admitting physician. She is a recent patient here of Dr. Meza'mirza for distal revascularization with interval ligation of the right arm. 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 Over the course of direct admission I was not able to determine if patient had received any Vancomycin or Zosyn prior to arrival here. After [facility] was no help via phone call I isra a stat Vancomycin random level which yielded negligent level of Vancomycin at 0.9 mcg/ml. I was never able to ascertain if Zosyn had been administered at previous facility. Objective Height (Feet): 5 Height (Inches): 3.00 Weight (Kilograms): 109.000 Vital Signs (Past 12Hrs) Vital Signs Past 12 Hours Date Time Temp Pulse Resp B/P (MAP) Pulse Ox O2 Delivery O2 Flow Rate FiO2 05/27/18 05:00 37.3 91 16 102/57 (72) 96 Room Air 05/27/18 04:10 37.3 88 18 94/58 (70) 95 Room Air 05/27/18 01:14 37.2 88 20 127/64 Room Air 05/27/18 00:30 Room Air 05/26/18 22:44 37.2 88 20 127/64 (85) 95 Room Air Lab Results (24Hrs) Laboratory Tests (24 Hours) Test 05/27/18 00:07 Lactic Acid Level 1.8 mmol/L (0.4-2.0) White Blood Count 12.63 K/uL (4.8-10.8) H Red Blood Count 2.97 M/uL (4.2-5.4) L Hemoglobin 9.1 g/dL (12.0-16.0) L Hematocrit 28.5 % (37-47) L Mean Corpuscular Volume 96.0 fL (80-100) Mean Corpuscular Hemoglobin 30.6 pg (25-34) Mean Corpuscular Hemoglobin Concent 31.9 g/dl (32-36) L Platelet Count 266 K/uL (130-400) Mean Platelet Volume 10.0 fL (7.4-10.4) Neutrophils (%) (Auto) 74.5 % Lymphocytes (%) (Auto) 16.9 % Monocytes (%) (Auto) 7.4 % Eosinophils (%) (Auto) 0.5 % Basophils (%) (Auto) 0.2 % Neutrophils # (Auto) 9.42 K/uL (1.4-6.5) H Lymphocytes # (Auto) 2.14 K/uL (1.2-3.4) Monocytes # (Auto) 0.93 K/uL (0.11-0.59) H Eosinophils # (Auto) 0.06 K/uL (0-0.5) Basophils # (Auto) 0.02 K/uL (0-0.2) Micro Results Date/Time Source Procedure Growth Status 05/27/18 00:08 Blood Blood Culture Pending Received 05/27/18 00:07 Blood Blood Culture Pending Received 05/27/18 01:07 Skin Arm , Right Upper Gram Stain Pending Received 05/27/18 01:07 Skin Arm , Right Upper Wound Culture Pending Received Risk Factors for Resistance * Resident in a [place] [facility] facility or extended-care facility * Hospitalization for 48 hours or more within the past 90 days * Chronic dialysis within the past 30 days Assessment & Plan Assessment 57 year old female with possible infected AV fistula Plan Vancomycin IV * Loading dose: 2000mg (20 mg/kg) * Will dose empirically based on levels pre/post dialysis via consult pharmacist. Piperacillin/tazobactam * Unsure of previous Zosyn dosing; started Zosyn at 4.5mg q12h at extended interval protocol. * Aggressive dosing selected due to critically ill status/BMI > 35 Pharmacy will continue to follow and will adjust dose/frequency as necessary. Thank you.
--- NOTE | 2018-05-27 06:35 | Medical Consult ---
Consultation Note Date of Service May 27, 2018. Consultation Note Chief Complaint Open wound of right arm History of Present Illness The patient is a 57 year old female who has fistula in her right arm. She has developed pain and coldness in her right hand and is unable to use it that well. 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 The stenosis was treated by endovascular means. She did have a steal syndrome of the right arm. This was treated with a DRIL procedure. She also had a permcath placed. The old incision opened with fibrin exudate present. This was debrided and closed primarily with flaps. This did well for two weeks and now has developed necrotid edges and dehiscence of the wound where the flaps come together. Allergies Coded Allergies: Oxycodone (Verified Allergy, Intermediate, HIVES, 10/24/17) PER [facility] Sulfa Antibiotics (Verified Allergy, Intermediate, HIVES, 10/24/17) PER [facility] Hydrochlorothiazide w/Triamterene (Verified Allergy, Unknown, UNKNOWN, 10/24/17) Sulfonylureas (Verified Allergy, Unknown, UNKNOWN, 10/24/17) Uncoded Allergies: CARBONIC (Allergy, Unknown, UNKNOWN, 10/24/17) CRBONIC ANHYDRASE INHIBITORS Home Medications Scheduled Atorvastatin (Lipitor), 40 MG PO DAILY Bumetanide (Bumex), 1 TAB PO DAILY Calcium Carbonate (Tums), 1 TAB PO DAILY Cholecalciferol (Vitamin D3), 1 TAB PO DAILY Docusate Sodium (Docusate Sodium), 1 CAP PO BID Insulin Glargine (Lantus), 42 SC QAM Levothyroxine Sodium (Levothyroxine Sodium), 1 TAB PO DAILY Levothyroxine Sodium (Levothyroxine Sodium), 1 TAB PO DAILY Lidocaine-Prilocaine (Lidocaine/Prilocaine), 1 APPLN TOP 3XWK Melatonin (Melatonin), 2 TABS PO QPM Metoprolol Tartrate (Lopressor), 1 TAB PO BID Polyethylene Glycol 3350 (Miralax), 17 GM PO DAILY Pramipexole (Mirapex), 0.25 MG PO HS Senna (Senokot), 2 TAB PO HS Sertraline Hcl (Zoloft), 37.5 MG PO HS Warfarin Sod (Jantoven), 3 MG PO DAILY [Humalog], 4 UNITS SQ HS Scheduled PRN Acetaminophen (Tylenol), 2 TAB PO Q6 PRN for Pain Acetaminophen Tab (Tylenol), 650 MG PO Q4 PRN for Pain Bisacodyl (Bisacodyl), 1 TAB PO UD PRN for Constipation [Bisacodyl Supp], 1 SUPP RE DAILY PRN for Constipation Surgical / Medical History Hx Abdominal Surgery: Yes (3 c-sections) Past Medical/Surgical History: Depression, Diabetes, Kidney Disease, Thyroid Disease Social History Smoking Status: Former Smoker Hx Tobacco Use In Past Year?: No Hx Alcohol Use - Type & Amnt: No Hx Substance Use -Type & Amnt: No Review of Systems Constitutional: No chills, No diaphoresis, No fever, No malaise, No weakness, No weight gain, No weight loss, No sweats, No fatigue, No problem reported Respiratory: No cough, No cyanosis, No RAMIREZ, No hemoptysis, No orthopnea, No PND , No short of breath, No sputum production, No stridor, No wheezing, No dyspnea , No problem reported Cardiovascular: No chest pain, No chest tightness, No chest pressure, No palpitations, No syncope, No diaphoresis, No edema, No intermittent claudication , No orthopnea, No cyanosis, No mumur, No lightheadedness, No paroxysmal nocturnal dyspnea, No problem reported Gastrointestinal: No abdominal pain, No constipation, No diarrhea, No nausea, No vomiting, No anorexia, No appetite changes, No belching, No flatulence, No food intolerance, No hematemesis, No hemorrhoids, No hematochezia, No stool changes, No heartburn, No indigestion, No dysphagia, No rectal bleeding, No problem reported Musculoskeletal: No back pain, No gout, No joint pain, No joint swelling, No muscle pain, No muscle stiffness, No muscle weakness, No neck pain, No problem reported Neurologic: No dizziness, No weakness, No headache, No lethargy, No numbness, No paresthesia, No pre-existing deficit, No seizures, No tics, No tingling, No tremors, No vertigo, No memory loss, No LOC, No problem reported Psychiatric: + depression Physical Exam Constitutional: General Apperance: overweight Level of Distress: NAD Ambulation: ambulating normally Psychiatric: Mental Status: active & alert, normal mood, normal affect Orientation: oriented except where noted, to time, to place, to person Memory: recent memory normal, remote memory normal Head: normocephalic Lungs: Auscultation: breath sounds normal Cardiovascular: Heart Auscultation: RRR Peripheral Pulses: Radial Pulse: normal on the left, decreased on the right Femoral Pulse: normal on the left, normal on the right Abdomen: Inspection & Palpation: soft Musculoskeletal: decrease strength in right hand Extremities: Upper Right: no cyanosis, no edema, no varicosities, no palpable cord, no clubbing, no ulcers, no mottling, patent fistula, open wound with necrotic edges. No graft seen a this time. The wound was not explored. Upper Left: no cyanosis, no edema, no varicosities, no palpable cord, no clubbing, no ulcers, no mottling Lower Right: no cyanosis, no edema, no varicosities, no palpable cord, no clubbing, no ulcers, no mottling, Lower Left: no cyanosis, no edema, no varicosities, no palpable cord, no clubbing, no ulcers, no mottling Neurologic: Cranial Nerves: grossly intact Sensation: grossly intact Assessment and Plan Imp: Open wound right arm with necrotic edges Plan: I recommended debridement in the OR and application of wound vac. I have discussed the risks options and benefits of the procedure with the patient. The patient understands the risks options and benefits and agrees to the procedure.
[2018-05-27] MEDS ORDERED: NURSING VERBAL MED ORDER ONE (07:00)
[2018-05-27] MEDS ORDERED: INSULIN ASPART 100 UNITS/ML 3 ML PEN SC SCH (08:00)
[2018-05-27 08:13] LABS: BASO % 0.2 %; BASO ABS # 0.02 K/uL (0-0.2); EOS % 0.6 %; EOS ABS # 0.07 K/uL (0-0.5); HEMATOCRIT 28.7 % (37-47); HEMOGLOBIN 8.9 g/dL (12.0-16.0); IG# 0.05 K/uL (0.00-0.02); LYMPH % 16.7 %; LYMPH ABS # 1.92 K/uL (1.2-3.4); MEAN CORPUSCULAR HEMOGLOBIN 29.8 pg (25-34); MEAN PLATELET VOLUME 10.1 fL (7.4-10.4); MONO % 9.8 %; MONO ABS # 1.13 K/uL (0.11-0.59); NEUT % 72.3 %; NEUT ABS # 8.31 K/uL (1.4-6.5); PLATELET COUNT 274 K/uL (130-400); RED CELL DISTRIBUTION WIDTH CV 14.7 % (11.5-14.5); RED CELL DISTRIBUTION WIDTH SD 51.3 fL (36.4-46.3)
[2018-05-27 08:19] LABS: INR 1.7 (0.9-1.1)
[2018-05-27 08:56] LABS: CALCIUM 9.1 mg/dl (8.5-10.1); CREATININE 4.77 mg/dl (0.60-1.20); POTASSIUM 4.5 mmol/L (3.5-5.1)
[2018-05-27] MEDS: METOPROLOL TARTRATE 25 MG TAB PO SCH ×2 (09:00→20:56)
[2018-05-27] MEDS: SEVELAMER HYDROCH 800 MG TAB PO SCH ×2 (09:02→18:13)
[2018-05-27] MEDS: BUMETANIDE 1 MG TAB PO SCH (09:03)
[2018-05-27] MEDS: ATORVASTATIN 40 MG TAB PO SCH (09:04)
[2018-05-27] MEDS: SODIUM BICARBONATE 650 MG TAB PO SCH (09:04)
[2018-05-27] MEDS: DOCUSATE SODIUM 100 MG CAP PO SCH ×2 (09:04→20:56)
[2018-05-27] MEDS: PANTOprazole SOD 40 MG TAB PO SCH (09:04)
[2018-05-27] MEDS: CALCIUM CARBONATE 500 MG CHEWABLE PO SCH ×3 (09:09→20:57)
--- NOTE | 2018-05-27 11:22 | Hospitalist Progress Note ---
Hospitalist Progress Note Date of Service May 27, 2018. (Felicia Marquez ., LINDAC) Subjective Pt evaluation today including: conversation w/ patient, physical exam, chart review, lab review, review of studies, review of inpatient medication list Patient complains of soreness in her RUE at the site of her AV fistula wound dehiscence. She states she is fatigued. She also reports some tingling in the RUE. The patient denies fevers, chills, sweats, chest pain, palpitations, claudication, cough, wheezing, shortness of breath, nausea, vomiting, abdominal pain, dysuria, hematuria, urinary retention, paralysis, weakness. Additional Comments: See HPI for pertinent positives and negatives. All other systems reviewed and negative. (Felicia Marquez ., LINDAC) Objective Vital Signs Date Time Temp Pulse Resp B/P (MAP) Pulse Ox O2 Delivery O2 Flow Rate FiO2 05/27/18 09:08 84 96/60 (72) 05/27/18 07:46 37.3 91 17 110/56 (74) 94 Room Air 05/27/18 05:00 37.3 91 16 102/57 (72) 96 Room Air 05/27/18 04:10 37.3 88 18 94/58 (70) 95 Room Air 05/27/18 01:14 37.2 88 20 127/64 Room Air 05/27/18 00:30 Room Air 05/26/18 22:44 37.2 88 20 127/64 (85) 95 Room Air (Feilcia Marquez PA-C) Physical Exam Notes: General appearance: +Morbidly obese. Well-developed, well-nourished, no apparent distress Head: Normocephalic, atraumatic Eyes: Normal inspection, PERRL, EOMI ENT: Normal ENT inspection, hearing grossly normal, pharynx normal Neck: Supple, no JVD, trachea midline Respiratory/Chest: +Perm cath left chest. Lungs clear to auscultation, normal breath sounds, no respiratory distress Cardiovascular: +Systolic murmur. Regular rate & rhythm, no gallop Abdomen/GI: Normal bowel sounds, non-tender, soft Extremities/Musculoskeletal: +Large wound R medial elbow with wide dehiscence, opened sutures. Visible pus w/in wound. Area is very TTP. No calf tenderness, no pedal edema Neurological/Psych: Alert, normal mood/affect, oriented x 3 Skin: Normal color, warm/dry, no rash (Felicia Marquez ., FERNANDA) Laboratory Results Last 24 Hours Test 05/27/18 00:07 05/27/18 00:47 05/27/18 00:54 05/27/18 05:53 White Blood Count 12.63 K/uL Red Blood Count 2.97 M/uL Hemoglobin 9.1 g/dL Hematocrit 28.5 % Mean Corpuscular Volume 96.0 fL Mean Corpuscular Hemoglobin 30.6 pg Mean Corpuscular Hemoglobin Concent 31.9 g/dl Platelet Count 266 K/uL Mean Platelet Volume 10.0 fL Neutrophils (%) (Auto) 74.5 % Lymphocytes (%) (Auto) 16.9 % Monocytes (%) (Auto) 7.4 % Eosinophils (%) (Auto) 0.5 % Basophils (%) (Auto) 0.2 % Neutrophils # (Auto) 9.42 K/uL Lymphocytes # (Auto) 2.14 K/uL Monocytes # (Auto) 0.93 K/uL Eosinophils # (Auto) 0.06 K/uL Basophils # (Auto) 0.02 K/uL RDW Standard Deviation 50.5 fL RDW Coefficient of Variation 14.5 % Immature Granulocyte % (Auto) 0.5 % Immature Granulocyte # (Auto) 0.06 K/uL Prothrombin Time 28.1 SECONDS Prothromb Time International Ratio 2.7 Sodium Level 133 mmol/L Potassium Level 4.4 mmol/L Chloride Level 97 mmol/L Carbon Dioxide Level 30 mmol/L Anion Gap 6.0 mmol/L Blood Urea Nitrogen 43 mg/dl Creatinine 4.24 mg/dl Estimated GFR () 12.5 Estimated GFR (Non- 10.7 BUN/Creatinine Ratio 10.2 Random Glucose 223 mg/dl Lactic Acid Level 1.8 mmol/L Calcium Level 8.4 mg/dl Bedside Glucose 198 mg/dl 108 mg/dl Random Vancomycin Level 0.9 mcg/ml Test 05/27/18 07:54 05/27/18 08:16 White Blood Count 11.50 K/uL Red Blood Count 2.99 M/uL Hemoglobin 8.9 g/dL Hematocrit 28.7 % Mean Corpuscular Volume 96.0 fL Mean Corpuscular Hemoglobin 29.8 pg Mean Corpuscular Hemoglobin Concent 31.0 g/dl Platelet Count 274 K/uL Mean Platelet Volume 10.1 fL Neutrophils (%) (Auto) 72.3 % Lymphocytes (%) (Auto) 16.7 % Monocytes (%) (Auto) 9.8 % Eosinophils (%) (Auto) 0.6 % Basophils (%) (Auto) 0.2 % Neutrophils # (Auto) 8.31 K/uL Lymphocytes # (Auto) 1.92 K/uL Monocytes # (Auto) 1.13 K/uL Eosinophils # (Auto) 0.07 K/uL Basophils # (Auto) 0.02 K/uL RDW Standard Deviation 51.3 fL RDW Coefficient of Variation 14.7 % Immature Granulocyte % (Auto) 0.4 % Immature Granulocyte # (Auto) 0.05 K/uL Prothrombin Time 17.4 SECONDS Prothromb Time International Ratio 1.7 Sodium Level 134 mmol/L Potassium Level 4.5 mmol/L Chloride Level 97 mmol/L Carbon Dioxide Level 28 mmol/L Anion Gap 9.0 mmol/L Blood Urea Nitrogen 50 mg/dl Creatinine 4.77 mg/dl Est Creatinine Clear Calc Drug Dose 15.0 ml/min Estimated GFR () 10.8 Estimated GFR (Non- 9.3 BUN/Creatinine Ratio 10.5 Random Glucose 113 mg/dl Calcium Level 9.1 mg/dl Random Vancomycin Level 30.1 mcg/ml Bedside Glucose 112 mg/dl (Felicia Marquez ., PA-C) Diagnostic Results Reviewed the following studies and agree with interpretation as follows: R ELBOW MIN 3 VIEWS ROUTINE CLINICAL HISTORY: 57 years-old Female presenting with INFECTION. TECHNIQUE: Frontal, oblique, and lateral views of the right elbow were obtained. COMPARISON: None. FINDINGS: Surgical clips project over the antecubital fossa. Atherosclerosis noted. Apparent soft tissue defect along the medial elbow. The apparent defect may be due to skin folds. Apart from this soft tissue abnormality, no convincing evidence of soft tissue emphysema. No osseous erosion or periosteal reaction. The elbow joint is congruent. Mild degenerative changes of the lateral elbow with osteophytosis at the radial head and lateral epicondyle. No acute fracture or malalignment. No evidence of an elbow joint effusion. IMPRESSION: 1. No acute osseous injury. No radiographic evidence of osteomyelitis. 2. Correlate clinically for possible soft tissue defect at the medial elbow versus skin fold. (Felicia Marquez ., FERNANDA) Assessment and Plan 57 y/o female with a history of CAD, HTN, HLD, h/o CVA, a-fib, DM II, ESRD on HD , right arm steal syndrome, hypothyroidism, recurrent UTI, and GERD who presents w/wound dehiscence and infection of right AV fistula. Wound dehiscence/infection right AV fistula--stable -Admit to med/surg -Wound and blood cultures pending -Continue vanc and Zosyn for now -Right elbow x-ray negative for acute osseous injury and osteomyelitis. Possible soft tissue defect at medial elbow vs skin fold -Consult vascular surgery, appreciate recs: Plan for OR debridement and wound vac tomorrow -NPO after midnight -Continue to hold warfarin for procedure -Consult wound care nurse CAD, HTN, HLD, h/o CVA -Continue Lopressor 25 mg PO BID, Lipitor 40 mg PO qd PAF--stable, sinus rhythm -Lopressor as above -Warfarin on hold for procedure -INR 1.7 on 05/27, down from 2.7 s/p vitamin K 5 mg IV x1 -Continue to monitor INR DM II--last HgbA1c 7.3 on 11/23/17 -Lantus had been d/c'd in October admission. Sugars controlled here -Insulin sliding scale -Check BSGs q ac and qhs -Recheck HgbA1c ESRD on HD--stable -Consult nephrology, appreciate recs. Pt on // dialysis schedule -Pt w/acute infection/dehiscence of R AV fistula. Pt has also has previous perm cath -Continue Renagel Hypothyroidism -Continue Synthroid 250 mcg PO qd Depression - Continue Zoloft 37.5 mg PO qd DVT Prophaylxis - SCDs - Holding Coumadin at this time Code Status -Level I, FULL RESUSCITATION STATUS (Felicia Marquez ., LINDAC) Supervising Note Dr. Storey I performed a history and physical examination on the patient. I reviewed above note and agree with it. I discussed plan with APC and patient. During my face to face encounter with the patient, I answered all of the patient's questions. Patient was complaining of pruritus. Due to cephalexin allergy, will switch zosyn to aztreonam. Will also give benadryl. (Cordelia,Hamzah A. M.D.)
[2018-05-27] MEDS: TRAMADOL HCL 50 MG TAB PO PRN ×2 (11:36→18:18)
[2018-05-27 11:52] LABS: HEMOGLOBIN A1C 6.3 % (4.5-5.6)
--- NOTE | 2018-05-27 12:45 | Pharmacy Progress Note ---
Pharmacy Abx Dose Progress Nt Date of Service May 27, 2018. Pharmacy Dosing Scope The patient is received Vancomycin 2000 mg IV x 1 dose today at 0218 per Pharmacy consult: Objective Height (Feet): 5 Height (Inches): 3.00 Weight (Kilograms): 109.000 Vital Signs (Past 12Hrs) Vital Signs Past 12 Hours Date Time Temp Pulse Resp B/P (MAP) Pulse Ox O2 Delivery O2 Flow Rate FiO2 05/27/18 11:37 37.1 86 18 111/69 (83) 96 Room Air 05/27/18 09:08 84 96/60 (72) 05/27/18 08:00 Room Air 05/27/18 07:46 37.3 91 17 110/56 (74) 94 Room Air 05/27/18 05:00 37.3 91 16 102/57 (72) 96 Room Air 05/27/18 04:10 37.3 88 18 94/58 (70) 95 Room Air 05/27/18 01:14 37.2 88 20 127/64 Room Air Lab Results (24Hrs) Item Value Date Time Random Vancomycin Level 30.1 mcg/ml 05/27/18 0754 Laboratory Tests (24 Hours) Test 05/27/18 00:07 05/27/18 07:54 Lactic Acid Level 1.8 mmol/L (0.4-2.0) White Blood Count 11.50 K/uL (4.8-10.8) H Red Blood Count 2.99 M/uL (4.2-5.4) L Hemoglobin 8.9 g/dL (12.0-16.0) L Hematocrit 28.7 % (37-47) L Mean Corpuscular Volume 96.0 fL (80-100) Mean Corpuscular Hemoglobin 29.8 pg (25-34) Mean Corpuscular Hemoglobin Concent 31.0 g/dl (32-36) L Platelet Count 274 K/uL (130-400) Mean Platelet Volume 10.1 fL (7.4-10.4) Neutrophils (%) (Auto) 72.3 % Lymphocytes (%) (Auto) 16.7 % Monocytes (%) (Auto) 9.8 % Eosinophils (%) (Auto) 0.6 % Basophils (%) (Auto) 0.2 % Neutrophils # (Auto) 8.31 K/uL (1.4-6.5) H Lymphocytes # (Auto) 1.92 K/uL (1.2-3.4) Monocytes # (Auto) 1.13 K/uL (0.11-0.59) H Eosinophils # (Auto) 0.07 K/uL (0-0.5) Basophils # (Auto) 0.02 K/uL (0-0.2) Micro Results Date/Time Source Procedure Growth Status 05/27/18 00:08 Blood Blood Culture Pending Received 05/27/18 00:07 Blood Blood Culture Pending Received 05/27/18 01:07 Skin Arm , Right Upper Gram Stain - Final Resulted 05/27/18 01:07 Skin Arm , Right Upper Wound Culture Pending Resulted Risk Factors for Resistance * Resident in a group home or extended-care facility * Hospitalization for 48 hours or more within the past 90 days * Chronic dialysis within the past 30 days Assessment & Plan Assessment 57 year old female transferred from [place] receiving Vancomycin and Zosyn for treatment of infected AV fistula (open wound in R arm). Day # 1 of antimicrobial therapy Plan Vancomycin IV * Random level drawn this AM around 3 hrs after the dose was given = 30.1 mcg/ml * With this level patient is not ready for re-dose. * Patient with ESRD on HD. Current Scr = 4.8. * Will obtain another random Vanco level with AM labs tomorrow. * Goal trough level for wound infection: ~15 mcg/ml. * Will re-dose with single doses of Vancomycin when level falls between 15-20 mcg/ml depending on Dialysis timing (usually after HD). * Less than traditional dose and/or extended dosing interval selected due to likelihood of drug accumulation in obese patient with ESRD. Pharmacy will continue to follow and will adjust dose/frequency as necessary. Thank you.
--- NOTE | 2018-05-27 13:30 | Nephrology Consultation ---
Nephrology Consultation Date & Providers Date of Consultation: May 27, 2018. Primary Care Provider: Marco Connolly M.D. Referring Provider: Reason for Consultation ESRD History of Present Illness Kortney Ardon is a 57-year-old female with morbid obesity, diabetes mellitus, hypertension, hypothyroidism, atrial fibrillation, history of CVA, coronary artery disease, dementia and ESRD. She is on IHD on a TTS schedule in [place]. The patient's last HD treatment was completed yesterday. Kortney is a very poor historian and not able to provide any details regarding her dialysis treatment. She feels well and offered no acute complaints. The patient has had multiple complications with her dialysis access. She was admitted to [facility] last month requiring debridement of the right arm following a DRIL procedure for steal syndrome. She has a left IJ TDC that was exchanged at that time. Unfortunately, there was dehiscence of the wound requiring the patient to be admitted for additional management. She initially presented to [facility] but was transferred to [facility] for dialysis access and access to her vascular surgeon. Vascular's plan of care was reviewed today. Past Medical/Surgical History Medical: ESRD due to diabetic nephropathy on HD Diabetes mellitus II Dementia, vascular Coronary artery disease Hypertension Hyperphosphatemia/secondary hyperparathyroidism Anemia of chronic disease Osteoarthritis Chronic sacral wound History of CVA Hypothyroidism Atrial fibrillation Surgical: LUE AVF DRIL procedure for steal syndrome Infection of incision requiring debridement in April 2018 Permcath placement (exchanged 05/08/18) Allergies Coded Allergies: Oxycodone (Verified Allergy, Intermediate, HIVES,RASH, 05/08/18) PER [employer] Sulfa Antibiotics (Verified Allergy, Intermediate, HIVES,RASH, 05/08/18) PER [employer] Cephalexin (Verified Allergy, Mild, HIVES, 05/08/18) Hydrochlorothiazide w/Triamterene (Verified Allergy, Unknown, UNKNOWN, ) Sulfonylureas (Verified Allergy, Unknown, UNKNOWN, 05/08/18) Uncoded Allergies: CARBONIC (Allergy, Unknown, UNKNOWN, 10/24/17) CRBONIC ANHYDRASE INHIBITORS Inpatient Medications Current Inpatient Medications Medications (Trade) Dose Ordered Sig/Kimmie Route Start Time Stop Time Status Last Admin Dose Admin Acetaminophen (Tylenol Tab) 650 mg Q4H PRN PO 05/26/18 23:00 06/25/18 22:59 Ondansetron HCl (Zofran Inj) 4 mg Q6H PRN IV 05/26/18 23:00 06/25/18 22:59 Glucose (Glucose 40% Gel) 15-30 GRAMS 15 GRAMS... UD PRN PO 05/26/18 23:00 06/25/18 22:59 Glucose (Glucose Chew Tab) 4-8 Tablets 4 Tabl... UD PRN PO 05/26/18 23:00 06/25/18 22:59 Dextrose (Dextrose 50% 50ML Syringe) 25-50ML 25ML FOR ... UD PRN IV 05/26/18 23:00 06/25/18 22:59 Glucagon (Glucagon Inj) 1 mg UD PRN SQ 05/26/18 23:00 06/25/18 22:59 Carbohydrates (Carbohydrates For Hypoglycemia) 15-30 GRAMS 15 grams if BSG 54-69... UD PRN PO 05/26/18 23:00 06/25/18 22:59 Atorvastatin Calcium (Lipitor Tab) 40 mg DAILY PO 05/27/18 09:00 06/26/18 08:59 05/27/18 09:04 40 MG Bisacodyl (Dulcolax Tab) 5 mg DAILY PRN PO 05/26/18 23:00 06/25/18 22:59 Bumetanide (Bumex Tab) 2 mg DAILY PO 05/27/18 09:00 06/26/18 08:59 05/27/18 09:03 2 MG Calcium Carbonate (Tums Chew Tab) 2,000 mg TID PO 05/27/18 09:00 06/26/18 08:59 05/27/18 09:09 2,000 MG Docusate Sodium (coLACE CAP) 100 mg BID PO 05/27/18 09:00 06/26/18 08:59 05/27/18 09:04 100 MG Levothyroxine Sodium (Synthroid Tab) 50 mcg DAILYBB PO 05/27/18 06:00 06/26/18 05:59 05/27/18 06:19 50 MCG Levothyroxine Sodium (Synthroid Tab) 200 mcg DAILYBB PO 05/27/18 06:00 06/26/18 05:59 05/27/18 06:20 200 MCG Metoprolol Tartrate (Lopressor Tab) 25 mg BID PO 05/27/18 09:00 06/26/18 08:59 Pantoprazole Sodium (Protonix Tab) 40 mg DAILY PO 05/27/18 09:00 06/26/18 08:59 05/27/18 09:04 40 MG Pramipexole Dihydrochloride (miraPEX TAB) 0.25 mg HS PO 05/27/18 21:00 06/26/18 20:59 Senna (Senokot Tab) 8.6 mg HS PO 05/27/18 21:00 06/26/18 20:59 Sevelamer HCl (Renagel Tab) 800 mg BIDM PO 05/27/18 08:30 06/26/18 08:29 05/27/18 09:02 800 MG Sodium Bicarbonate (Sodium Bicarbonate Tab) 650 mg DAILY PO 05/27/18 09:00 06/26/18 08:59 05/27/18 09:04 650 MG Vancomycin HCl (Consult) 1 ea UD PRN N/A 05/26/18 23:00 06/25/18 22:59 Piperacillin Sod/ Tazobactam Sod 4.5 gm/Dextrose 120 ml @ 30 mls/hr Q12H IV 05/27/18 04:00 05/29/18 03:59 05/27/18 05:06 28.75 MLS/HR Miscellaneous Information (Consult) 1 ea UD PRN N/A 05/26/18 23:00 06/25/18 22:59 Tramadol HCl (Ultram Tab) 50 mg Q4H PRN PO 05/27/18 06:45 06/26/18 06:44 05/27/18 11:36 50 MG Insulin Aspart (novoLOG ASPART) SLIDING SCALE If C... ACHS SC 05/27/18 08:00 06/26/18 07:59 05/27/18 09:15 8 UNITS Sertraline HCl (Zoloft Tab) 37.5 mg HS PO 05/27/18 21:00 06/26/18 20:59 Social History Smoking Status: Former Smoker Drug Use: none Occupation: disabled Review of Systems A complete review of systems was performed. Pertinent positives are noted above. All other systems are negative. Physical Exam Date Time Temp Pulse Resp B/P (MAP) Pulse Ox O2 Delivery O2 Flow Rate FiO2 05/27/18 11:37 37.1 86 18 111/69 (83) 96 Room Air 05/27/18 09:08 84 96/60 (72) 05/27/18 08:00 Room Air 05/27/18 07:46 37.3 91 17 110/56 (74) 94 Room Air 05/27/18 05:00 37.3 91 16 102/57 (72) 96 Room Air 05/27/18 04:10 37.3 88 18 94/58 (70) 95 Room Air 05/27/18 01:14 37.2 88 20 127/64 Room Air 05/27/18 00:30 Room Air 05/26/18 22:44 37.2 88 20 127/64 (85) 95 Room Air General Appearance: no apparent distress, + obese Head: normocephalic, atraumatic Eyes: normal inspection, sclerae normal ENT: normal ENT inspection, pharynx normal Neck: supple, + pertinent finding ([facility] HD permcath) Respiratory/Chest: lungs clear, no respiratory distress, no accessory muscle use Cardiovascular: no gallop, + systolic murmur, + irregularly irregular Abdomen/GI: non tender, soft Extremities/Musculoskelatal: normal inspection, + pedal edema, + pertinent finding (RUE AVF wrapped with dressing CDI, +thrill and bruit) Neurologic/Psych: alert, + depressed affect Laboratory Results Last 24 Hours Test 05/27/18 00:07 05/27/18 00:47 05/27/18 00:54 05/27/18 05:53 White Blood Count 12.63 K/uL Red Blood Count 2.97 M/uL Hemoglobin 9.1 g/dL Hematocrit 28.5 % Mean Corpuscular Volume 96.0 fL Mean Corpuscular Hemoglobin 30.6 pg Mean Corpuscular Hemoglobin Concent 31.9 g/dl Platelet Count 266 K/uL Mean Platelet Volume 10.0 fL Neutrophils (%) (Auto) 74.5 % Lymphocytes (%) (Auto) 16.9 % Monocytes (%) (Auto) 7.4 % Eosinophils (%) (Auto) 0.5 % Basophils (%) (Auto) 0.2 % Neutrophils # (Auto) 9.42 K/uL Lymphocytes # (Auto) 2.14 K/uL Monocytes # (Auto) 0.93 K/uL Eosinophils # (Auto) 0.06 K/uL Basophils # (Auto) 0.02 K/uL RDW Standard Deviation 50.5 fL RDW Coefficient of Variation 14.5 % Immature Granulocyte % (Auto) 0.5 % Immature Granulocyte # (Auto) 0.06 K/uL Prothrombin Time 28.1 SECONDS Prothromb Time International Ratio 2.7 Sodium Level 133 mmol/L Potassium Level 4.4 mmol/L Chloride Level 97 mmol/L Carbon Dioxide Level 30 mmol/L Anion Gap 6.0 mmol/L Blood Urea Nitrogen 43 mg/dl Creatinine 4.24 mg/dl Estimated GFR () 12.5 Estimated GFR (Non- 10.7 BUN/Creatinine Ratio 10.2 Random Glucose 223 mg/dl Lactic Acid Level 1.8 mmol/L Calcium Level 8.4 mg/dl Bedside Glucose 198 mg/dl 108 mg/dl Random Vancomycin Level 0.9 mcg/ml Test 05/27/18 07:54 05/27/18 08:16 05/27/18 11:55 White Blood Count 11.50 K/uL Red Blood Count 2.99 M/uL Hemoglobin 8.9 g/dL Hematocrit 28.7 % Mean Corpuscular Volume 96.0 fL Mean Corpuscular Hemoglobin 29.8 pg Mean Corpuscular Hemoglobin Concent 31.0 g/dl Platelet Count 274 K/uL Mean Platelet Volume 10.1 fL Neutrophils (%) (Auto) 72.3 % Lymphocytes (%) (Auto) 16.7 % Monocytes (%) (Auto) 9.8 % Eosinophils (%) (Auto) 0.6 % Basophils (%) (Auto) 0.2 % Neutrophils # (Auto) 8.31 K/uL Lymphocytes # (Auto) 1.92 K/uL Monocytes # (Auto) 1.13 K/uL Eosinophils # (Auto) 0.07 K/uL Basophils # (Auto) 0.02 K/uL RDW Standard Deviation 51.3 fL RDW Coefficient of Variation 14.7 % Immature Granulocyte % (Auto) 0.4 % Immature Granulocyte # (Auto) 0.05 K/uL Prothrombin Time 17.4 SECONDS Prothromb Time International Ratio 1.7 Sodium Level 134 mmol/L Potassium Level 4.5 mmol/L Chloride Level 97 mmol/L Carbon Dioxide Level 28 mmol/L Anion Gap 9.0 mmol/L Blood Urea Nitrogen 50 mg/dl Creatinine 4.77 mg/dl Est Creatinine Clear Calc Drug Dose 15.0 ml/min Estimated GFR () 10.8 Estimated GFR (Non- 9.3 BUN/Creatinine Ratio 10.5 Random Glucose 113 mg/dl Estimated Average Glucose 134 mg/dl Hemoglobin A1c 6.3 % Calcium Level 9.1 mg/dl Random Vancomycin Level 30.1 mcg/ml Bedside Glucose 112 mg/dl 115 mg/dl Impression (1) End-stage renal disease on hemodialysis (2) AV fistula infection (3) Dialysis AV fistula malfunction (4) Anemia (5) Secondary hyperparathyroidism of renal origin (6) Hypertension Kortney is a 57-year-old female with morbid obesity, diabetes mellitus II, hypertension, coronary artery disease, history of CVA, dementia, atrial fibrillation, hypothyroidism and ESRD. She is on TTS HD. She was admitted with dehiscence of right upper extremity wound. Blood pressure, volume status and electrolytes are acceptable. HD will be planned for tomorrow. Additional records requested from [place] regarding dialysis treatment specifics. The patient has a permcath for access which was exchanged last month. Recommendations ESRD: -- HD tomorrow per TTS schedule -- Document I/O's -- Daily metabolic profile -- Renal diet including 1.5 L daily fluid restriction -- Patient still makes urine and is maintained on Bumex Anemia: -- EPO will be provided with HD CKD/MBD: -- Sevelamer [facility] Hypertension: -- BP currently acceptable on home regiment
[2018-05-27] MEDS ORDERED: WARFARIN SOD 3 MG TAB PO SCH (16:00)
[2018-05-27] MEDS: ACETAMINOPHEN 325 MG TAB PO PRN (18:50)
[2018-05-27] MEDS: PRAMIPEXOLE DIHYDROCHLORIDE 0.25MG TAB PO SCH (20:56)
[2018-05-27] MEDS: SERTRALINE HCL 50 MG TAB PO SCH (20:57)
[2018-05-27] MEDS: SENNA 8.6 MG TAB PO SCH (20:57)
[2018-05-27] MEDS ORDERED: SERTRALINE HCL 50 MG TAB PEG SCH (21:00)
[2018-05-28] VITALS (13 sets, daily range): BP systolic 98–140; BP diastolic 48–81; PULSE 78–116; TEMP 36–38.6; O2SAT 79–97; Ht 160 cm; Wt 114.1 kg
[2018-05-28] MEDS: AZTREONAM IV 2,000 MG in DEXTROSE 5% 100ML 100 ML IV SCH ×2 (00:13→07:44)
[2018-05-28] MEDS: LEVOTHYROXINE 50 MCG TAB PO SCH (05:52)
[2018-05-28] MEDS: LEVOTHYROXINE 200 MCG TAB PO SCH (05:52)
[2018-05-28] MEDS ORDERED: NURSING VERBAL MED ORDER ONE ×4 (06:00→17:30)
[2018-05-28] MEDS: INSULIN ASPART 100 UNITS/ML 3 ML PEN SC SCH ×2 (06:00→12:00)
[2018-05-28] MEDS: DOCUSATE SODIUM 100 MG CAP PO SCH ×2 (08:35→21:14)
[2018-05-28] MEDS: CALCIUM CARBONATE 500 MG CHEWABLE PO SCH ×3 (08:36→21:16)
[2018-05-28] MEDS: SEVELAMER HYDROCH 800 MG TAB PO SCH ×2 (08:36→18:02)
[2018-05-28] MEDS: SODIUM BICARBONATE 650 MG TAB PO SCH (08:36)
[2018-05-28] MEDS: PANTOprazole SOD 40 MG TAB PO SCH (08:36)
[2018-05-28] MEDS: ATORVASTATIN 40 MG TAB PO SCH (08:37)
[2018-05-28] MEDS: METOPROLOL TARTRATE 25 MG TAB PO SCH ×2 (08:37→21:14)
[2018-05-28] MEDS: BUMETANIDE 1 MG TAB PO SCH (08:37)
[2018-05-28 08:47] LABS: BASO % 0.3 %; BASO ABS # 0.03 K/uL (0-0.2); EOS % 1.3 %; EOS ABS # 0.11 K/uL (0-0.5); HEMOGLOBIN 9.4 g/dL (12.0-16.0); IG# 0.08 K/uL (0.00-0.02); LYMPH % 15.8 %; LYMPH ABS # 1.38 K/uL (1.2-3.4); MEAN CELL VOLUME 96.3 fL (80-100); MEAN CORPUSCULAR HEMOGLOBIN 31.2 pg (25-34); MEAN CORPUSCULAR HGB CONC 32.4 g/dl (32-36); MEAN PLATELET VOLUME 10.2 fL (7.4-10.4); MONO % 8.4 %; MONO ABS # 0.73 K/uL (0.11-0.59); NEUT % 73.3 %; NEUT ABS # 6.41 K/uL (1.4-6.5); PLATELET COUNT 231 K/uL (130-400); RED CELL DISTRIBUTION WIDTH CV 14.5 % (11.5-14.5); RED CELL DISTRIBUTION WIDTH SD 50.7 fL (36.4-46.3); WHITE BLOOD COUNT 8.74 K/uL (4.8-10.8)
[2018-05-28 08:55] LABS: INR 1.1 (0.9-1.1)
[2018-05-28 09:29] LABS: CALCIUM 9.1 mg/dl (8.5-10.1); CREATININE 6.08 mg/dl (0.60-1.20); POTASSIUM 4.8 mmol/L (3.5-5.1)
--- NOTE | 2018-05-28 09:34 | Clinical Documentation Query ---
SHAUNA Chawla : CLINICAL DOCUMENTATION QUERY Possible inconsistent documentation exists within the medical record. IM documentation includes note of AV fistula wound infection, a complication of care. Surgical consultation notes only wound dehiscence with necrotic edges. She is being treated with Vanco and Zosyn. Please clarify as clinically appropriate. In your clinical opinion is this patient being managed for: ( x ) Wound dehiscence and (likely/suspected) infection of right AV fistula ( ) Wound dehiscence, no (possible/suspected) infection ( ) Other explanation of clinical findings (No explanation is considered a No Response) ( ) Unable to determine The medical record reflects the following clinical findings, treatment, and risk factors. Please clarify and document your clinical opinion in the progress notes and discharge summary. Terms such as "probable", "suspected", "likely", "questionable", "possible", or "still to be ruled out" are acceptable. IF IN AGREEMENT, YOU MUST DOCUMENT ABOVE DIAGNOSTIC STATEMENT IN DAILY PROGRESS NOTES AND DISCHARGE SUMMARY. This document is not part of the patient's record. Thank You, Nixon Kapoor, RN [phone]
[2018-05-28] MEDS ORDERED: AZTREONAM CONSULT ACTIVE PRN (10:00)
--- NOTE | 2018-05-28 10:05 | Nephrology Progress Note ---
Nephrology Progress Note Date of Service May 28, 2018. Chief Complaint ESRD Subjective No acute events overnight. Kortney denies pain. No fevers or chills. TDC did not work for HD. Blood flow inappropriate and excessive access pressures. Treatment not able to be performed. I discussed with nursing staff at [facility] and they described similar experience. The AVF did function well for them. Unfortunately, the patient continues to suffer with hand pain and numbness. The patient has by report been tolerating dialysis well aside for issues with access. Review of Systems A complete review of systems was performed. Pertinent positives are noted above. All other systems are negative. Vital Signs Last 8 Hrs Date Time Temp Pulse Resp B/P (MAP) Pulse Ox O2 Delivery O2 Flow Rate FiO2 05/28/18 07:45 Room Air 05/28/18 07:43 36.0 90 16 98/48 (65) 96 Room Air Last Recorded Weight Weight (Kilograms): 109.000 Physical Exam General Appearance: no apparent distress, + obese Head: normocephalic, atraumatic Eyes: normal inspection, sclerae normal ENT: normal ENT inspection, pharynx normal Neck: supple, no JVD, + pertinent finding (J TDC) Respiratory/Chest: lungs clear Cardiovascular: regular rate, rhythm, no gallop Abdomen/GI: non tender, soft Extremities/Musculoskelatal: normal inspection, + pedal edema, + pertinent finding (AVF wrapped with kerlix - CDI with thrill and bruit) Neurologic/Psych: alert, normal mood/affect Social History Drug Use: none Occupation: disabled Laboratory Results Past 24 Hours 05/28/18 08:35 Red Blood Count 3.01, Mean Corpuscular Volume 96.3, Mean Corpuscular Hemoglobin 31.2, Mean Corpuscular Hemoglobin Concent 32.4, Mean Platelet Volume 10.2, Neutrophils (%) (Auto) 73.3, Lymphocytes (%) (Auto) 15.8, Monocytes (%) (Auto) 8.4, Eosinophils (%) (Auto) 1.3, Basophils (%) (Auto) 0.3, Neutrophils # (Auto) 6.41, Lymphocytes # (Auto) 1.38, Monocytes # (Auto) 0.73, Eosinophils # (Auto) 0.11, Basophils # (Auto) 0.03 05/28/18 08:35 Test 05/27/18 11:55 05/27/18 17:04 05/27/18 21:10 05/28/18 05:36 Bedside Glucose 115 mg/dl (70-90) 100 mg/dl (70-90) 175 mg/dl (70-90) 120 mg/dl (70-90) Test 05/28/18 08:35 White Blood Count 8.74 K/uL (4.8-10.8) Red Blood Count 3.01 M/uL (4.2-5.4) Hemoglobin 9.4 g/dL (12.0-16.0) Hematocrit 29.0 % (37-47) Mean Corpuscular Volume 96.3 fL (80-100) Mean Corpuscular Hemoglobin 31.2 pg (25-34) Mean Corpuscular Hemoglobin Concent 32.4 g/dl (32-36) Platelet Count 231 K/uL (130-400) Mean Platelet Volume 10.2 fL (7.4-10.4) Neutrophils (%) (Auto) 73.3 % Lymphocytes (%) (Auto) 15.8 % Monocytes (%) (Auto) 8.4 % Eosinophils (%) (Auto) 1.3 % Basophils (%) (Auto) 0.3 % Neutrophils # (Auto) 6.41 K/uL (1.4-6.5) Lymphocytes # (Auto) 1.38 K/uL (1.2-3.4) Monocytes # (Auto) 0.73 K/uL (0.11-0.59) Eosinophils # (Auto) 0.11 K/uL (0-0.5) Basophils # (Auto) 0.03 K/uL (0-0.2) RDW Standard Deviation 50.7 fL (36.4-46.3) RDW Coefficient of Variation 14.5 % (11.5-14.5) Immature Granulocyte % (Auto) 0.9 % Immature Granulocyte # (Auto) 0.08 K/uL (0.00-0.02) Prothrombin Time 11.3 SECONDS (9.0-12.0) Prothromb Time International Ratio 1.1 (0.9-1.1) Anion Gap 10.0 mmol/L (3-11) Est Creatinine Clear Calc Drug Dose 11.8 ml/min Estimated GFR () 8.1 Estimated GFR (Non- 6.9 BUN/Creatinine Ratio 10.7 (10-20) Calcium Level 9.1 mg/dl (8.5-10.1) Random Vancomycin Level 22.4 mcg/ml Allergies Coded Allergies: Oxycodone (Verified Allergy, Intermediate, HIVES,RASH, 05/08/18) PER [employer] Sulfa Antibiotics (Verified Allergy, Intermediate, HIVES,RASH, 05/08/18) PER [employer] Cephalexin (Verified Allergy, Mild, HIVES, 05/08/18) Hydrochlorothiazide w/Triamterene (Verified Allergy, Unknown, UNKNOWN, ) Sulfonylureas (Verified Allergy, Unknown, UNKNOWN, 05/08/18) Uncoded Allergies: CARBONIC (Allergy, Unknown, UNKNOWN, 10/24/17) CRBONIC ANHYDRASE INHIBITORS Medications Current Inpatient Medications Medications (Trade) Dose Ordered Sig/Kimmie Route Start Time Stop Time Status Last Admin Dose Admin Acetaminophen (Tylenol Tab) 650 mg Q4H PRN PO 05/26/18 23:00 06/25/18 22:59 05/27/18 18:50 650 MG Ondansetron HCl (Zofran Inj) 4 mg Q6H PRN IV 05/26/18 23:00 06/25/18 22:59 Glucose (Glucose 40% Gel) 15-30 GRAMS 15 GRAMS... UD PRN PO 05/26/18 23:00 06/25/18 22:59 Glucose (Glucose Chew Tab) 4-8 Tablets 4 Tabl... UD PRN PO 05/26/18 23:00 06/25/18 22:59 Dextrose (Dextrose 50% 50ML Syringe) 25-50ML 25ML FOR ... UD PRN IV 05/26/18 23:00 06/25/18 22:59 Glucagon (Glucagon Inj) 1 mg UD PRN SQ 05/26/18 23:00 06/25/18 22:59 Carbohydrates (Carbohydrates For Hypoglycemia) 15-30 GRAMS 15 grams if BSG 54-69... UD PRN PO 05/26/18 23:00 06/25/18 22:59 Atorvastatin Calcium (Lipitor Tab) 40 mg DAILY PO 05/27/18 09:00 06/26/18 08:59 05/28/18 08:37 40 MG Bisacodyl (Dulcolax Tab) 5 mg DAILY PRN PO 05/26/18 23:00 06/25/18 22:59 Bumetanide (Bumex Tab) 2 mg DAILY PO 05/27/18 09:00 06/26/18 08:59 05/28/18 08:37 2 MG Calcium Carbonate (Tums Chew Tab) 2,000 mg TID PO 05/27/18 09:00 06/26/18 08:59 05/27/18 20:57 2,000 MG Docusate Sodium (coLACE CAP) 100 mg BID PO 05/27/18 09:00 06/26/18 08:59 05/28/18 08:35 100 MG Levothyroxine Sodium (Synthroid Tab) 50 mcg DAILYBB PO 05/27/18 06:00 06/26/18 05:59 05/28/18 05:52 50 MCG Levothyroxine Sodium (Synthroid Tab) 200 mcg DAILYBB PO 05/27/18 06:00 06/26/18 05:59 05/28/18 05:52 200 MCG Metoprolol Tartrate (Lopressor Tab) 25 mg BID PO 05/27/18 09:00 06/26/18 08:59 05/27/18 20:56 25 MG Pantoprazole Sodium (Protonix Tab) 40 mg DAILY PO 05/27/18 09:00 06/26/18 08:59 05/28/18 08:36 40 MG Pramipexole Dihydrochloride (miraPEX TAB) 0.25 mg HS PO 05/27/18 21:00 06/26/18 20:59 05/27/18 20:56 0.25 MG Senna (Senokot Tab) 8.6 mg HS PO 05/27/18 21:00 06/26/18 20:59 05/27/18 20:57 8.6 MG Sevelamer HCl (Renagel Tab) 800 mg BIDM PO 05/27/18 08:30 06/26/18 08:29 05/28/18 08:36 800 MG Sodium Bicarbonate (Sodium Bicarbonate Tab) 650 mg DAILY PO 05/27/18 09:00 06/26/18 08:59 05/28/18 08:36 650 MG Vancomycin HCl (Consult) 1 ea UD PRN N/A 05/26/18 23:00 06/25/18 22:59 Tramadol HCl (Ultram Tab) 50 mg Q4H PRN PO 05/27/18 06:45 06/26/18 06:44 05/27/18 18:18 50 MG Sertraline HCl (Zoloft Tab) 37.5 mg HS PO 05/27/18 21:00 06/26/18 20:59 05/27/18 20:57 37.5 MG Insulin Aspart (novoLOG ASPART) SLIDING SCALE If C... Q6 SC 05/28/18 06:00 06/27/18 05:59 Aztreonam 500 mg/ Dextrose 102.5 ml @ 100 mls/hr Q8H IV 05/29/18 00:00 06/12/18 00:00 Aztreonam (Consult) 1 ea UD PRN N/A 05/28/18 10:00 06/27/18 09:59 Impression (1) End-stage renal disease on hemodialysis (2) AV fistula infection (3) Dialysis AV fistula malfunction (4) Anemia (5) Secondary hyperparathyroidism of renal origin (6) Hypertension Kortney is a 57-year-old female with morbid obesity, diabetes mellitus II, hypertension, coronary artery disease, history of CVA, dementia, atrial fibrillation, hypothyroidism and ESRD. She is on TTS HD. She was admitted with dehiscence of right upper extremity wound. Blood pressure, volume status and electrolytes are acceptable. HD will be planned for tomorrow. Additional records requested from [facility] regarding dialysis treatment specifics. The patient has a permcath for access which was exchanged last month. Recommendations ESRD: -- HD tomorrow per TTS schedule -- Document I/O's -- Daily metabolic profile -- Renal diet including 1.5 L daily fluid restriction -- Patient still makes urine and is maintained on Bumex Anemia: -- EPO will be provided with HD CKD/MBD: -- Sevelamer [facility] Hypertension: -- BP currently acceptable on home regiment
[2018-05-28] MEDS: TRAMADOL HCL 50 MG TAB PO PRN (12:19)
[2018-05-28] MEDS ORDERED: BUPIVACAINE/EPINEPHRINE 0.5% MPF 1:200,000 30 ML VIAL ONE (12:45)
[2018-05-28] MEDS ORDERED: LIDOCAINE HCL 1% 20 ML VIAL ONE (12:45)
--- NOTE | 2018-05-28 12:59 | Progress Note ---
Progress Note Date of Service May 28, 2018. Progress Note Patient for debridement of right arm with possible application of wound vac. I have discussed the risks options and benefits of the procedure with the patient. The patient understands the risks options and benefits and agrees to the procedure. I have examined the patient, reviewed the History & Physical and in the interval since the performance of the History & Physical I have noted the following changes of clinical significance: No changes noted
[2018-05-28] MEDS ORDERED: FENTANYL CITRATE INJ 50 MCG/1 ML 2 ML VIAL ONE ×3 (13:07→14:56)
[2018-05-28] MEDS ORDERED: PROPOFOL IV EMULSION 10 MG/ML 20 ML VIAL ONE (13:07)
[2018-05-28] MEDS ORDERED: LIDOCAINE HCL 2% 2 ML VIAL (20MG/ML) ONE (13:07)
[2018-05-28] MEDS ORDERED: DEXAMETHASONE SOD INJ 4 MG/ML VIAL ONE ×2 (13:07→14:51)
[2018-05-28] MEDS ORDERED: MIDAZOLAM HCL 1 MG/ML 2ML VIAL ONE (13:07)
[2018-05-28] MEDS ORDERED: ONDANSETRON INJ 2 MG/ML 2 ML VIAL ONE ×2 (13:07→14:51)
[2018-05-28] MEDS ORDERED: METOCLOPRAMIDE HCL INJ 5 MG/ML 2 ML VIAL ONE (13:26)
[2018-05-28] MEDS ORDERED: SODIUM CHLORIDE 0.9% 1000ML 1,000 ML IV SCH (13:30)
--- NOTE | 2018-05-28 13:48 | Hospitalist Progress Note ---
Hospitalist Progress Note Date of Service May 28, 2018. (Felicia Marquez ., LINDAC) Subjective Pt evaluation today including: conversation w/ patient, chart review, lab review, review of inpatient medication list Pain: 10/10 throbbing RUE pain PO Intake: NPO for OR today Voiding: no voiding problems Patient complains of a 10/10 aching, throbbing pain in her RUE from her wound radiating down to her right hand. This pain is worse with palpation and movement. She reports RUE tingling. She otherwise denies acute complaints. She is currently NPO for OR debridement today. The patient denies fevers, chills, sweats, chest pain, palpitations, claudication, cough, wheezing, shortness of breath, nausea, vomiting, abdominal pain, dysuria, hematuria, urinary retention, paralysis, weakness. Additional Comments: See HPI for pertinent positives and negatives. All other systems reviewed and negative. (Felicia Marquez ., SILVESTRE-C) Objective Vital Signs Date Time Temp Pulse Resp B/P (MAP) Pulse Ox O2 Delivery O2 Flow Rate FiO2 05/28/18 09:17 36.0 89 132/54 (80) 05/28/18 09:00 79 128/48 05/28/18 08:52 78 132/56 05/28/18 08:45 36.0 78 115/53 (73) 05/28/18 07:45 Room Air 05/28/18 07:43 36.0 90 16 98/48 (65) 96 Room Air 05/28/18 00:00 Room Air 05/27/18 22:45 37.0 77 18 103/60 (74) 94 Room Air 05/27/18 20:51 86 152/70 (97) 05/27/18 15:50 Room Air 05/27/18 15:43 37.0 91 20 107/67 (80) 97 Room Air (Felicia Marquez .SILVESTRE-C) Physical Exam Notes: General appearance: +Morbidly obese. Well-developed, well-nourished, no apparent distress Head: Normocephalic, atraumatic Eyes: Normal inspection, PERRL, EOMI ENT: Normal ENT inspection, hearing grossly normal, pharynx normal Neck: Supple, no JVD, trachea midline Respiratory/Chest: +Perm cath left chest. Lungs clear to auscultation, normal breath sounds, no respiratory distress Cardiovascular: +Systolic murmur. Regular rate & rhythm, no gallop Abdomen/GI: Normal bowel sounds, non-tender, soft Extremities/Musculoskeletal: +Large wound R medial elbow with wide dehiscence, opened sutures. Visible pus w/in wound. Area is very TTP down to right hand. No calf tenderness, no pedal edema Neurological/Psych: Alert, normal mood/affect, oriented x 3 Skin: Normal color, warm/dry, no rash (Felicia Marquez ., SILVESTRE-C) Laboratory Results Last 24 Hours Test 05/27/18 17:04 05/27/18 21:10 05/28/18 05:36 05/28/18 08:35 Bedside Glucose 100 mg/dl 175 mg/dl 120 mg/dl White Blood Count 8.74 K/uL Red Blood Count 3.01 M/uL Hemoglobin 9.4 g/dL Hematocrit 29.0 % Mean Corpuscular Volume 96.3 fL Mean Corpuscular Hemoglobin 31.2 pg Mean Corpuscular Hemoglobin Concent 32.4 g/dl Platelet Count 231 K/uL Mean Platelet Volume 10.2 fL Neutrophils (%) (Auto) 73.3 % Lymphocytes (%) (Auto) 15.8 % Monocytes (%) (Auto) 8.4 % Eosinophils (%) (Auto) 1.3 % Basophils (%) (Auto) 0.3 % Neutrophils # (Auto) 6.41 K/uL Lymphocytes # (Auto) 1.38 K/uL Monocytes # (Auto) 0.73 K/uL Eosinophils # (Auto) 0.11 K/uL Basophils # (Auto) 0.03 K/uL RDW Standard Deviation 50.7 fL RDW Coefficient of Variation 14.5 % Immature Granulocyte % (Auto) 0.9 % Immature Granulocyte # (Auto) 0.08 K/uL Prothrombin Time 11.3 SECONDS Prothromb Time International Ratio 1.1 Sodium Level 135 mmol/L Potassium Level 4.8 mmol/L Chloride Level 98 mmol/L Carbon Dioxide Level 27 mmol/L Anion Gap 10.0 mmol/L Blood Urea Nitrogen 65 mg/dl Creatinine 6.08 mg/dl Est Creatinine Clear Calc Drug Dose 11.8 ml/min Estimated GFR () 8.1 Estimated GFR (Non- 6.9 BUN/Creatinine Ratio 10.7 Random Glucose 127 mg/dl Calcium Level 9.1 mg/dl Random Vancomycin Level 22.4 mcg/ml Test 05/28/18 12:07 05/28/18 12:59 Bedside Glucose 121 mg/dl 124 mg/dl (Felicia Marquez ., FERNANDA) Assessment and Plan 57 y/o female with a history of CAD, HTN, HLD, h/o CVA, a-fib, DM II, ESRD on HD , right arm steal syndrome, hypothyroidism, recurrent UTI, and GERD who presents w/wound dehiscence and infection of right AV fistula. Wound dehiscence/infection right AV fistula--stable -Admit to med/surg -Wound culture positive for staph and corynebacterium, sensitivities pending -Blood cultures no growth to date -Zosyn changed to aztreonam due to itching and presumed allergy. Continue vancomycin -Right elbow x-ray negative for acute osseous injury and osteomyelitis. Possible soft tissue defect at medial elbow vs skin fold -Consult vascular surgery, appreciate recs: Plan for OR debridement and wound vac -NPO for procedure this afternoon -Continue to hold warfarin for procedure, INR acceptable -Consult wound care nurse -Will add morphine 4 mg IV q4h prn pain in addition to tramadol. Pt had tolerated previous morphine dose after admission w/o adverse reaction CAD, HTN, HLD, h/o CVA -Continue Lopressor 25 mg PO BID, Lipitor 40 mg PO qd PAF--stable, sinus rhythm -Lopressor as above -Warfarin on hold for procedure -INR 1.1 on 05/29, down from 1.7 -Continue to monitor INR DM II--last HgbA1c 7.3 on 11/23/17 -Lantus had been d/c'd in October admission. Sugars controlled here -Insulin sliding scale -Check BSGs q ac and qhs -HgbA1c 6.3 on 05/27 ESRD on HD--stable -Consult nephrology, appreciate recs: Could not perform dialysis today due to current issues with AV fistula and perm cath also not working. Will attempt again tomorrow. Dr. Valadez spoke with Dr. Meza, who encouraged continue use of AVF as able and will try to cannulate the AVF following debridement. Recommend renal diet with 1.5L fluid restriction. -Continue Renagel Hypothyroidism -Continue Synthroid 250 mcg PO qd Depression - Continue Zoloft 37.5 mg PO qd DVT Prophaylxis - SCDs - Holding Coumadin at this time Code Status -Level I, FULL RESUSCITATION STATUS (Felicia Marquez, LINDAC) Supervising Note Dr. Storey I performed a history and physical examination on the patient. I reviewed above note and agree with it. I discussed plan with APC and patient. During my face to face encounter with the patient, I answered all of the patient's questions. Patient had Right Arm Debridement with Application of Wound Vac Reviewing the notes from surgery: "We cannot see any portion of the fistula or the vein graft of the drill procedure." Will continue vanco and aztreonam. Patient tolerated procedure well. Patient no longer has pruritus. (Hamzah Storey M.D.)
[2018-05-28] MEDS ORDERED: EpHEDrine SULFATE INJ 50 MG/ML AMP ONE (13:54)
--- NOTE | 2018-05-28 14:08 | Pharmacy Progress Note ---
Pharmacy Abx Dose Short Note Date of Service May 28, 2018. Assessment & Plan Assessment 57 year old female receiving vancomycin/aztreonam for treatment of infected AV fistula Day # 3 of antimicrobial therapy at [facility] Wound culture currently growing Staph. sp. and corynebacterium Plan Vancomycin * Random level of 22.4, patient did not undergo dialysis today so will not redose today * Will get random level in AM as going to attempt dialysis again tomorrow Aztreonam dose adjusted to 500 mg q8H. An additional 250 mg dose is to be given after dialysis. Pharmacy will continue to follow and will adjust dose/frequency as necessary. Thank you.
[2018-05-28] MEDS ORDERED: LARYING-O-JET KIT (LTA) ONE (14:12)
--- NOTE | 2018-05-28 14:20 | [facility] Post Operative Brief Note ---
Immediate Operative Summary Operative Date May 28, 2018. Pre-Operative Diagnosis necrotic dehisced arm wound Post-Operative Diagnosis same as preop Procedure(s) Performed Right Arm Debridement with Application of Wound Vac Surgeon Dr. Dayton Meza Manager Scheduling Surgeon(s) Aleshia Carcamo, Vascular Resident Estimated Blood Loss 20ML Findings Consistent with Post-Op Diagnosis Specimens none per surgeon Drains None Anesthesia Type General Complication(s) none Disposition Accompanied Pt To Recover: no Disposition: Recovery Room / PACU
--- NOTE | 2018-05-28 14:43 | [facility] Operative Report ---
Operative Report Operative Date May 28, 2018. Pre-Operative Diagnosis necrotic dehisced arm wound Post-Operative Diagnosis same as preop Procedure(s) Performed Right Arm Debridement with Application of Wound Vac Surgeon Dr. Dayton Meza Terrazzo Worker Apprentice Surgeon(s) Aleshia Carcamo, Vascular Resident Estimated Blood Loss 20ML Findings There is good tissue seen in the depths of the wound and edges. No graft was noted. Specimens none per surgeon Drains None Anesthesia Type General Complication(s) none Disposition no Recovery Room / PACU Indications This is a 57-year-old female who has had multiple procedures on her right arm. She underwent a debridement with coverage of her bypass recently. Last week she dehisced the wound. The dialysis unit called the office this week to tell us that she had dehiscence with necrotic tissue. the patient was admitted to the hospital and debridement with application of wound VAC was recommended.I have discussed the risks options and benefits of the procedure with the patient. The patient understands the risks options and benefits and agrees to the procedure. Description of Procedure The patient was taken to the operating room and placed in the supine position. After general anesthesia was accomplished the right arm was prepped and draped in a sterile manner. These necrotic skin edges and necrotic subcutaneous fat was then excised using skin sharp dissection with a scalpel. This was carried down to where good tissue was seen at the base of the wound. The edges were debrided to where good tissue was noted. The necrotic edges were where the points of the previous flaps met. We cannot see any portion of the fistula or the vein graft of the drill procedure. Wound was then copiously irrigated with saline solution. Adequate hemostasis was then obtained. After adequate hemostasis was noted a wound VAC was placed on the wound. Wound measured approximately 8 x 5 x 2 at that point. Good suction was applied with the wound VAC. No leaks were seen.The patient left the operation room in satisfactory condition and tolerated the procedure well. All needle and sponge counts were correct at the end of the procedure. I attest to the content of the Intraoperative Record and any orders documented therein. Any exceptions are noted below.
[2018-05-28] MEDS ORDERED: EpHEDrine SULFATE INJ 50 MG/ML AMP IV PRN (15:00)
[2018-05-28] MEDS ORDERED: PROMETHAZINE HCL INJ 12.5 MG in SODIUM CHLORIDE 0.9% 50ML 50 ML IV PRN (15:00)
[2018-05-28] MEDS ORDERED: PROMETHAZINE HCL INJ 12.5 MG in SODIUM CHLORIDE 0.9% 50ML 50 ML IV ONE (15:00)
[2018-05-28] MEDS ORDERED: ATROPINE SULFATE 0.1 MG/ML 5ML SYR IV PRN (15:00)
[2018-05-28] MEDS ORDERED: FENTANYL CITRATE INJ 50 MCG/1 ML 2 ML VIAL IV PRN (15:00)
--- NOTE | 2018-05-28 15:20 | Anesthesiology Progress Note ---
Anesthesia Post Op Note Date & Time May 28, 2018 at 15:20 Vital Signs Pain Intensity: 6 Vital Signs Past 12 Hours Date Time Temp Pulse Resp B/P (MAP) Pulse Ox O2 Delivery O2 Flow Rate FiO2 05/28/18 15:10 96 14 110/63 95 Nasal Cannula 2 05/28/18 15:00 99 17 138/64 97 Nasal Cannula 2 05/28/18 14:50 98 15 149/70 99 Oxymask 10 05/28/18 14:40 97 19 137/61 99 Oxymask 10 05/28/18 14:32 36.5 103 13 152/65 98 Oxymask 10 05/28/18 09:17 36.0 89 132/54 (80) 05/28/18 09:00 79 128/48 05/28/18 08:52 78 132/56 05/28/18 08:45 36.0 78 115/53 (73) 05/28/18 07:45 Room Air 05/28/18 07:43 36.0 90 16 98/48 (65) 96 Room Air Notes Mental Status: alert / awake / arousable, participated in evaluation Pt Amnestic to Procedure: Yes Nausea / Vomiting: adequately controlled Pain: adequately controlled Airway Patency, RR, SpO2: stable & adequate BP & HR: stable & adequate Hydration State: stable & adequate Anesthetic Complications: no major complications apparent
[2018-05-28] MEDS ORDERED: INSULIN ASPART 100 UNITS/ML 3 ML PEN SC SCH (21:00)
[2018-05-28] MEDS: SENNA 8.6 MG TAB PO SCH (21:16)
[2018-05-28] MEDS: SERTRALINE HCL 50 MG TAB PO SCH (21:16)
[2018-05-28] MEDS: PRAMIPEXOLE DIHYDROCHLORIDE 0.25MG TAB PO SCH (21:16)
[2018-05-29] VITALS (23 sets, daily range): BP systolic 82–149; BP diastolic 36–80; PULSE 79–96; TEMP 36.6–36.9; O2SAT 92–96
[2018-05-29] MEDS: AZTREONAM IV 500 MG in DEXTROSE 5% 100ML 100 ML IV SCH ×2 (00:03→07:50)
[2018-05-29] MEDS ORDERED: NURSING DECISION MEDICATION ORDER SCH (01:30)
[2018-05-29] MEDS: LEVOTHYROXINE 50 MCG TAB PO SCH (05:47)
[2018-05-29] MEDS: LEVOTHYROXINE 200 MCG TAB PO SCH (05:47)
[2018-05-29] MEDS: INSULIN ASPART 100 UNITS/ML 3 ML PEN SC SCH ×5 (05:48→22:23)
[2018-05-29] MEDS: TRAMADOL HCL 50 MG TAB PO PRN ×3 (06:08→19:09)
[2018-05-29 08:19] LABS: BASO % 0.2 %; BASO ABS # 0.02 K/uL (0-0.2); EOS % 0.1 %; EOS ABS # 0.01 K/uL (0-0.5); HEMATOCRIT 28.1 % (37-47); IG# 0.06 K/uL (0.00-0.02); LYMPH % 18.2 %; MEAN CELL VOLUME 94.3 fL (80-100); MEAN CORPUSCULAR HEMOGLOBIN 30.2 pg (25-34); MEAN PLATELET VOLUME 9.4 fL (7.4-10.4); MONO % 6.9 %; MONO ABS # 0.61 K/uL (0.11-0.59); NEUT % 73.9 %; NEUT ABS # 6.51 K/uL (1.4-6.5); PLATELET COUNT 226 K/uL (130-400); RED CELL DISTRIBUTION WIDTH CV 14.4 % (11.5-14.5); RED CELL DISTRIBUTION WIDTH SD 49.3 fL (36.4-46.3); WHITE BLOOD COUNT 8.81 K/uL (4.8-10.8)
--- NOTE | 2018-05-29 08:20 | Anesthesiology Progress Note ---
Anesthesia Post Op Note Date & Time May 29, 2018 at 08:19 Vital Signs Vital Signs Past 12 Hours Date Time Temp Pulse Resp B/P (MAP) Pulse Ox O2 Delivery O2 Flow Rate FiO2 05/29/18 07:29 36.9 96 18 149/62 (91) 92 Room Air 05/29/18 03:53 36.7 80 18 135/70 (91) 93 Room Air 05/29/18 00:00 Room Air 05/29/18 00:00 95 95 Nasal Cannula 2.0 05/28/18 23:05 36.8 116 20 128/81 (97) 79 Room Air 05/28/18 21:15 105 118/65 (82) Notes Mental Status: alert / awake / arousable, participated in evaluation Pt Amnestic to Procedure: Yes Nausea / Vomiting: adequately controlled Pain: adequately controlled Airway Patency, RR, SpO2: stable & adequate BP & HR: stable & adequate Hydration State: stable & adequate Anesthetic Complications: no major complications apparent
[2018-05-29 08:26] LABS: INR 1.1 (0.9-1.1)
--- NOTE | 2018-05-29 08:43 | Progress Note ---
Progress Note Date of Service: May 29, 2018. Subjective No pain in arm since surgery Objective Vital Signs Vital Signs Past 12 Hours Date Time Temp Pulse Resp B/P (MAP) Pulse Ox O2 Delivery O2 Flow Rate FiO2 05/29/18 07:29 36.9 96 18 149/62 (91) 92 Room Air 05/29/18 03:53 36.7 80 18 135/70 (91) 93 Room Air 05/29/18 00:00 Room Air 05/29/18 00:00 95 95 Nasal Cannula 2.0 05/28/18 23:05 36.8 116 20 128/81 (97) 79 Room Air 05/28/18 21:15 105 118/65 (82) Exam Awake and alert VSS and afebrile Wound vac in place Hand warm with good cap refill Fistula patent Laboratory and Microbiology Results Past 24 Hours Test 05/28/18 12:07 05/28/18 12:59 05/28/18 14:37 05/28/18 16:59 Range/Units Bedside Glucose 121 124 126 161 70-90 mg/dl Test 05/28/18 21:08 05/29/18 05:45 05/29/18 08:00 Range/Units Bedside Glucose 284 309 70-90 mg/dl White Blood Count 8.81 4.8-10.8 K/uL Red Blood Count 2.98 4.2-5.4 M/uL Hemoglobin 9.0 12.0-16.0 g/dL Hematocrit 28.1 37-47 % Mean Corpuscular Volume 94.3 80-100 fL Mean Corpuscular Hemoglobin 30.2 25-34 pg Mean Corpuscular Hemoglobin Concent 32.0 32-36 g/dl Platelet Count 226 130-400 K/uL Mean Platelet Volume 9.4 7.4-10.4 fL Neutrophils (%) (Auto) 73.9 % Lymphocytes (%) (Auto) 18.2 % Monocytes (%) (Auto) 6.9 % Eosinophils (%) (Auto) 0.1 % Basophils (%) (Auto) 0.2 % Neutrophils # (Auto) 6.51 1.4-6.5 K/uL Lymphocytes # (Auto) 1.60 1.2-3.4 K/uL Monocytes # (Auto) 0.61 0.11-0.59 K/uL Eosinophils # (Auto) 0.01 0-0.5 K/uL Basophils # (Auto) 0.02 0-0.2 K/uL RDW Standard Deviation 49.3 36.4-46.3 fL RDW Coefficient of Variation 14.4 11.5-14.5 % Immature Granulocyte % (Auto) 0.7 % Immature Granulocyte # (Auto) 0.06 0.00-0.02 K/uL Prothrombin Time 11.8 9.0-12.0 SECONDS Prothromb Time International Ratio 1.1 0.9-1.1 Imp: Debridement of wound with application of wound vac Plan: Will have wound care change wound vac from silver to black foam today. Patient to have dialysis today. Will try to use fistula for this. If not possible then will change permcath. Can d/c once MD has wound vac.
[2018-05-29 08:47] LABS: CALCIUM 9.1 mg/dl (8.5-10.1); CREATININE 7.21 mg/dl (0.60-1.20); POTASSIUM 4.8 mmol/L (3.5-5.1)
[2018-05-29] MEDS: SEVELAMER HYDROCH 800 MG TAB PO SCH ×2 (08:48→19:08)
[2018-05-29] MEDS: DOCUSATE SODIUM 100 MG CAP PO SCH ×2 (08:50→22:18)
[2018-05-29] MEDS: BUMETANIDE 1 MG TAB PO SCH (08:50)
[2018-05-29] MEDS: PANTOprazole SOD 40 MG TAB PO SCH (08:51)
[2018-05-29] MEDS: ATORVASTATIN 40 MG TAB PO SCH (08:51)
[2018-05-29] MEDS: SODIUM BICARBONATE 650 MG TAB PO SCH (08:51)
[2018-05-29] MEDS: CALCIUM CARBONATE 500 MG CHEWABLE PO SCH ×3 (08:52→22:14)
[2018-05-29] MEDS: METOPROLOL TARTRATE 25 MG TAB PO SCH ×2 (08:55→22:17)
--- NOTE | 2018-05-29 09:11 | Nephrology Progress Note ---
Nephrology Progress Note Date of Service May 29, 2018. Chief Complaint ESRD Subjective No acute events overnight. Kortney feels well this morning. No fevers or chills. Pain persists but improved following surgery and wound vac placement. No fevers or chills. Appetite good. I discussed the plan of care with the dialysis nurse and Dr. Meza this morning. Review of Systems A complete review of systems was performed. Pertinent positives are noted above. All other systems are negative. Vital Signs Last 8 Hrs Date Time Temp Pulse Resp B/P (MAP) Pulse Ox O2 Delivery O2 Flow Rate FiO2 05/29/18 07:29 36.9 96 18 149/62 (91) 92 Room Air 05/29/18 03:53 36.7 80 18 135/70 (91) 93 Room Air Last Recorded Weight Weight (Kilograms): 111.000 Physical Exam General Appearance: no apparent distress, + obese Head: normocephalic, atraumatic Eyes: normal inspection, sclerae normal ENT: normal ENT inspection, TMs normal Neck: supple, no JVD Respiratory/Chest: lungs clear, no respiratory distress, no accessory muscle use, + decreased breath sounds Cardiovascular: regular rate, rhythm, no gallop Abdomen/GI: non tender, soft Extremities/Musculoskelatal: normal inspection, no pedal edema Neurologic/Psych: alert, normal mood/affect Social History Drug Use: none Occupation: disabled Laboratory Results Past 24 Hours 05/29/18 08:00 Red Blood Count 2.98, Mean Corpuscular Volume 94.3, Mean Corpuscular Hemoglobin 30.2, Mean Corpuscular Hemoglobin Concent 32.0, Mean Platelet Volume 9.4, Neutrophils (%) (Auto) 73.9, Lymphocytes (%) (Auto) 18.2, Monocytes (%) (Auto) 6.9, Eosinophils (%) (Auto) 0.1, Basophils (%) (Auto) 0.2, Neutrophils # (Auto) 6.51, Lymphocytes # (Auto) 1.60, Monocytes # (Auto) 0.61, Eosinophils # (Auto) 0.01, Basophils # (Auto) 0.02 05/29/18 08:00 Test 05/28/18 12:07 05/28/18 12:59 05/28/18 14:37 05/28/18 16:59 Bedside Glucose 121 mg/dl (70-90) 124 mg/dl (70-90) 126 mg/dl (70-90) 161 mg/dl (70-90) Test 05/28/18 21:08 05/29/18 05:45 05/29/18 08:00 05/29/18 08:53 Bedside Glucose 284 mg/dl (70-90) 309 mg/dl (70-90) 227 mg/dl (70-90) White Blood Count 8.81 K/uL (4.8-10.8) Red Blood Count 2.98 M/uL (4.2-5.4) Hemoglobin 9.0 g/dL (12.0-16.0) Hematocrit 28.1 % (37-47) Mean Corpuscular Volume 94.3 fL (80-100) Mean Corpuscular Hemoglobin 30.2 pg (25-34) Mean Corpuscular Hemoglobin Concent 32.0 g/dl (32-36) Platelet Count 226 K/uL (130-400) Mean Platelet Volume 9.4 fL (7.4-10.4) Neutrophils (%) (Auto) 73.9 % Lymphocytes (%) (Auto) 18.2 % Monocytes (%) (Auto) 6.9 % Eosinophils (%) (Auto) 0.1 % Basophils (%) (Auto) 0.2 % Neutrophils # (Auto) 6.51 K/uL (1.4-6.5) Lymphocytes # (Auto) 1.60 K/uL (1.2-3.4) Monocytes # (Auto) 0.61 K/uL (0.11-0.59) Eosinophils # (Auto) 0.01 K/uL (0-0.5) Basophils # (Auto) 0.02 K/uL (0-0.2) RDW Standard Deviation 49.3 fL (36.4-46.3) RDW Coefficient of Variation 14.4 % (11.5-14.5) Immature Granulocyte % (Auto) 0.7 % Immature Granulocyte # (Auto) 0.06 K/uL (0.00-0.02) Prothrombin Time 11.8 SECONDS (9.0-12.0) Prothromb Time International Ratio 1.1 (0.9-1.1) Anion Gap 11.0 mmol/L (3-11) Est Creatinine Clear Calc Drug Dose 10.1 ml/min Estimated GFR () 6.6 Estimated GFR (Non- 5.7 BUN/Creatinine Ratio 10.7 (10-20) Calcium Level 9.1 mg/dl (8.5-10.1) Random Vancomycin Level 20.6 mcg/ml Allergies Coded Allergies: Oxycodone (Verified Allergy, Intermediate, HIVES,RASH, 05/08/18) PER [employer] Sulfa Antibiotics (Verified Allergy, Intermediate, HIVES,RASH, 05/08/18) PER [employer] Cephalexin (Verified Allergy, Mild, HIVES, 05/08/18) Penicillins (Verified Allergy, Mild, RASH, 05/28/18) Itchiness Hydrochlorothiazide w/Triamterene (Verified Allergy, Unknown, UNKNOWN, ) Sulfonylureas (Verified Allergy, Unknown, UNKNOWN, 05/08/18) Uncoded Allergies: CARBONIC (Allergy, Unknown, UNKNOWN, 10/24/17) CRBONIC ANHYDRASE INHIBITORS Medications Current Inpatient Medications Medications (Trade) Dose Ordered Sig/Kimmie Route Start Time Stop Time Status Last Admin Dose Admin Acetaminophen (Tylenol Tab) 650 mg Q4H PRN PO 05/26/18 23:00 06/25/18 22:59 05/27/18 18:50 650 MG Ondansetron HCl (Zofran Inj) 4 mg Q6H PRN IV 05/26/18 23:00 06/25/18 22:59 Glucose (Glucose 40% Gel) 15-30 GRAMS 15 GRAMS... UD PRN PO 05/26/18 23:00 06/25/18 22:59 Glucose (Glucose Chew Tab) 4-8 Tablets 4 Tabl... UD PRN PO 05/26/18 23:00 06/25/18 22:59 Dextrose (Dextrose 50% 50ML Syringe) 25-50ML 25ML FOR ... UD PRN IV 05/26/18 23:00 06/25/18 22:59 Glucagon (Glucagon Inj) 1 mg UD PRN SQ 05/26/18 23:00 06/25/18 22:59 Carbohydrates (Carbohydrates For Hypoglycemia) 15-30 GRAMS 15 grams if BSG 54-69... UD PRN PO 05/26/18 23:00 06/25/18 22:59 Atorvastatin Calcium (Lipitor Tab) 40 mg DAILY PO 05/27/18 09:00 06/26/18 08:59 05/29/18 08:51 40 MG Bisacodyl (Dulcolax Tab) 5 mg DAILY PRN PO 05/26/18 23:00 06/25/18 22:59 Bumetanide (Bumex Tab) 2 mg DAILY PO 05/27/18 09:00 06/26/18 08:59 05/29/18 08:50 2 MG Calcium Carbonate (Tums Chew Tab) 2,000 mg TID PO 05/27/18 09:00 06/26/18 08:59 05/29/18 08:52 2,000 MG Docusate Sodium (coLACE CAP) 100 mg BID PO 05/27/18 09:00 06/26/18 08:59 05/29/18 08:50 100 MG Levothyroxine Sodium (Synthroid Tab) 50 mcg DAILYBB PO 05/27/18 06:00 06/26/18 05:59 05/29/18 05:47 50 MCG Levothyroxine Sodium (Synthroid Tab) 200 mcg DAILYBB PO 05/27/18 06:00 06/26/18 05:59 05/29/18 05:47 200 MCG Metoprolol Tartrate (Lopressor Tab) 25 mg BID PO 05/27/18 09:00 06/26/18 08:59 05/28/18 21:14 25 MG Pantoprazole Sodium (Protonix Tab) 40 mg DAILY PO 05/27/18 09:00 06/26/18 08:59 05/29/18 08:51 40 MG Pramipexole Dihydrochloride (miraPEX TAB) 0.25 mg HS PO 05/27/18 21:00 06/26/18 20:59 05/28/18 21:16 0.25 MG Senna (Senokot Tab) 8.6 mg HS PO 05/27/18 21:00 06/26/18 20:59 05/28/18 21:16 8.6 MG Sevelamer HCl (Renagel Tab) 800 mg BIDM PO 05/27/18 08:30 06/26/18 08:29 05/29/18 08:48 800 MG Sodium Bicarbonate (Sodium Bicarbonate Tab) 650 mg DAILY PO 05/27/18 09:00 06/26/18 08:59 05/29/18 08:51 650 MG Vancomycin HCl (Consult) 1 ea UD PRN N/A 05/26/18 23:00 06/25/18 22:59 Tramadol HCl (Ultram Tab) 50 mg Q4H PRN PO 05/27/18 06:45 06/26/18 06:44 05/29/18 06:08 50 MG Sertraline HCl (Zoloft Tab) 37.5 mg HS PO 05/27/18 21:00 06/26/18 20:59 05/28/18 21:16 37.5 MG Aztreonam 500 mg/ Dextrose 102.5 ml @ 100 mls/hr Q8H IV 05/29/18 00:00 06/12/18 00:00 05/29/18 07:50 100 MLS/HR Aztreonam (Consult) 1 ea UD PRN N/A 05/28/18 10:00 06/27/18 09:59 Morphine Sulfate (MoRPHine SULFATE INJ) 4 mg Q4H PRN IV 05/28/18 12:45 06/11/18 12:44 Sodium Chloride 1,000 ml @ 15 mls/hr Q24H IV 05/28/18 13:30 05/29/18 13:29 Insulin Aspart (novoLOG ASPART) SLIDING SCALE If C... Q6 SC 05/29/18 06:00 06/28/18 05:59 05/29/18 05:48 9 UNITS Impression (1) End-stage renal disease on hemodialysis (2) AV fistula infection (3) Dialysis AV fistula malfunction (4) Anemia (5) Secondary hyperparathyroidism of renal origin (6) Hypertension Kortney is a 57-year-old female with morbid obesity, diabetes mellitus II, hypertension, coronary artery disease, history of CVA, dementia, atrial fibrillation, hypothyroidism and ESRD. She is on TTS HD. She was admitted with dehiscence of right upper extremity wound. She is POD#1 s/p debridement and wound vac placement. Blood pressure, volume status and electrolytes are acceptable. HD planned for tomorrow. Access was evaluated with the dialysis nurse. HD permcath has not been functional. Alteplase dwell provided this AM. Will try to access AVF proximal to necrotic area and wound vac. If unable to appropriately cannulate for HD, permcath will need to be exchanged. Recommendations ESRD: -- HD today, orders entered into chart and communicated to dialysis nurse -- Document I/O's -- Daily metabolic profile -- Renal diet including 1.5 L daily fluid restriction -- Patient still makes urine and is maintained on Bumex Wound dehiscence: -- Dialysis nurse to attempt to cannulate proximal to necrotic area and wound vac -- If unable to access AVF, plan for permcath exchange Anemia: -- EPO will be provided with HD CKD/MBD: -- [facility] Hypertension: -- BP currently acceptable on home regiment
[2018-05-29] MEDS ORDERED: EPOETIN ALFA 10,000 UNITS/ML VIAL IV ONE (10:00)
--- NOTE | 2018-05-29 10:42 | Pharmacy Progress Note ---
Pharmacy Abx Dose Short Note Date of Service May 29, 2018. Assessment & Plan Assessment Item Value Date Time Random Vancomycin Level 20.6 mcg/ml 05/29/18 0800 57 year old female receiving Vancomycin & Aztreonam for treatment of infected AV fistula Day # 3 of antimicrobial therapy. Plan Vancomycin * Random level of 20.6 mcg/mL. * Patient is receiving dialysis today. Will redose with Vancomycin 750 mg IV post-dialysis * Random level ordered for: 05/30/18 with am labs * Patient is normally on a Fri//Fri dialysis schedule. If she received dialysis tomorrow, will redose based on random level. * Wound culture positive for MRSA. Will also give additional Aztreonam 250mg post-dialysis per order from Dr. Storey. Pharmacy will continue to follow and will adjust dose/frequency as necessary. Thank you.
[2018-05-29] MEDS ORDERED: NURSING VERBAL MED ORDER ONE (12:45)
[2018-05-29] MEDS ORDERED: VANCOMYCIN IV 750 MG in SODIUM CHLORIDE 0.9% 250ML 250 ML IV ONE (13:00)
[2018-05-29] MEDS ORDERED: AZTREONAM IV 250 MG in DEXTROSE 5% 100ML 100 ML IV ONE (13:00)
--- NOTE | 2018-05-29 15:02 | Hospitalist Progress Note ---
Hospitalist Progress Note Date of Service May 29, 2018. (Felicia Marquez ., LINDAC) Subjective Pt evaluation today including: conversation w/ patient, physical exam, chart review, lab review, conversation w/ data management consultant, review of inpatient medication list Pain: 5/10 aching RUE pain PO Intake: Tolerating PO diet Voiding: no voiding problems Patient reports feeling better today but still complains of a 5/10 aching pain in her RUE. She states the pain is now more localized around her wound and no longer radiates down to her hand. She was receiving dialysis through her fistula at the time of my exam and does note that her arm is more painful now due to using the fistula. The patient otherwise denies complaints. The patient denies fevers, chills, sweats, chest pain, palpitations, claudication, cough, wheezing, shortness of breath, nausea, vomiting, abdominal pain, dysuria , hematuria, urinary retention, paralysis, weakness, numbness and tingling. Additional Comments: See HPI for pertinent positives and negatives. All other systems reviewed and negative. (Felicia Marquez ., SILVESTRE-C) Objective Vital Signs Date Time Temp Pulse Resp B/P (MAP) Pulse Ox O2 Delivery O2 Flow Rate FiO2 05/29/18 13:00 84 94/41 05/29/18 12:45 85 99/45 05/29/18 12:30 83 94/46 05/29/18 12:15 80 96/41 05/29/18 12:00 80 92/38 05/29/18 11:45 82 91/37 05/29/18 11:30 86 97/43 05/29/18 11:15 84 92/48 05/29/18 11:00 80 88/37 05/29/18 10:45 80 84/36 05/29/18 10:30 79 86/36 05/29/18 10:15 79 84/37 05/29/18 10:00 79 92/37 05/29/18 09:45 79 82/36 05/29/18 09:39 87 106/47 05/29/18 09:14 36.7 84 87/41 (56) 05/29/18 07:45 Room Air 05/29/18 07:29 36.9 96 18 149/62 (91) 92 Room Air 7/6/18 03:53 36.7 80 18 135/70 (91) 93 Room Air 05/29/18 00:00 Room Air 05/29/18 00:00 95 95 Nasal Cannula 2.0 05/28/18 23:05 36.8 116 20 128/81 (97) 79 Room Air 05/28/18 21:15 105 118/65 (82) 05/28/18 19:03 36.9 92 18 137/70 (92) 92 Room Air 05/28/18 17:47 38.6 99 20 140/81 (100) 94 Nasal Cannula 2.0 05/28/18 16:50 36.6 93 18 129/58 (81) 96 Nasal Cannula 2.0 05/28/18 16:17 36.8 99 18 121/61 (81) 96 Nasal Cannula 2.0 05/28/18 15:45 Nasal Cannula 2.0 05/28/18 15:45 36.9 97 16 129/71 (90) 97 Room Air 2.0 05/28/18 15:40 97 Nasal Cannula 2.0 05/28/18 15:20 36.2 97 16 124/56 97 Nasal Cannula 2 05/28/18 15:10 96 14 110/63 95 Nasal Cannula 2 05/28/18 15:00 99 17 138/64 97 Nasal Cannula 2 (Felicia Marquez ., PA-C) Physical Exam Notes: General appearance: +Morbidly obese. Well-developed, well-nourished, no apparent distress Head: Normocephalic, atraumatic Eyes: Normal inspection, PERRL, EOMI ENT: Normal ENT inspection, hearing grossly normal, pharynx normal Neck: Supple, no JVD, trachea midline Respiratory/Chest: +Perm cath left chest. Lungs clear to auscultation, normal breath sounds, no respiratory distress Cardiovascular: +Systolic murmur. Regular rate & rhythm, no gallop Abdomen/GI: Normal bowel sounds, non-tender, soft Extremities/Musculoskeletal: +Large wound R medial elbow with wound vac in place. Area very TTP. Fistula working. No calf tenderness, no pedal edema Neurological/Psych: Alert, normal mood/affect, oriented x 3 Skin: Normal color, warm/dry, no rash (Felicia Marquez ., PA-C) Laboratory Results Last 24 Hours Test 05/28/18 16:59 05/28/18 21:08 05/29/18 05:45 05/29/18 08:00 Bedside Glucose 161 mg/dl 284 mg/dl 309 mg/dl White Blood Count 8.81 K/uL Red Blood Count 2.98 M/uL Hemoglobin 9.0 g/dL Hematocrit 28.1 % Mean Corpuscular Volume 94.3 fL Mean Corpuscular Hemoglobin 30.2 pg Mean Corpuscular Hemoglobin Concent 32.0 g/dl Platelet Count 226 K/uL Mean Platelet Volume 9.4 fL Neutrophils (%) (Auto) 73.9 % Lymphocytes (%) (Auto) 18.2 % Monocytes (%) (Auto) 6.9 % Eosinophils (%) (Auto) 0.1 % Basophils (%) (Auto) 0.2 % Neutrophils # (Auto) 6.51 K/uL Lymphocytes # (Auto) 1.60 K/uL Monocytes # (Auto) 0.61 K/uL Eosinophils # (Auto) 0.01 K/uL Basophils # (Auto) 0.02 K/uL RDW Standard Deviation 49.3 fL RDW Coefficient of Variation 14.4 % Immature Granulocyte % (Auto) 0.7 % Immature Granulocyte # (Auto) 0.06 K/uL Prothrombin Time 11.8 SECONDS Prothromb Time International Ratio 1.1 Sodium Level 133 mmol/L Potassium Level 4.8 mmol/L Chloride Level 97 mmol/L Carbon Dioxide Level 24 mmol/L Anion Gap 11.0 mmol/L Blood Urea Nitrogen 77 mg/dl Creatinine 7.21 mg/dl Est Creatinine Clear Calc Drug Dose 10.1 ml/min Estimated GFR () 6.6 Estimated GFR (Non- 5.7 BUN/Creatinine Ratio 10.7 Random Glucose 236 mg/dl Calcium Level 9.1 mg/dl Random Vancomycin Level 20.6 mcg/ml Test 05/29/18 08:53 Bedside Glucose 227 mg/dl (Felicia Marquez PA-C) Assessment and Plan 57 y/o female with a history of CAD, HTN, HLD, h/o CVA, a-fib, DM II, ESRD on HD , right arm steal syndrome, hypothyroidism, recurrent UTI, and GERD who presents w/wound dehiscence and infection of right AV fistula. Wound dehiscence/infection right AV fistula--improving -Admit to med/surg -Wound culture positive for MRSA -Blood cultures no growth to date -D/C aztreonam, continue vancomycin -Consult infectious disease, appreciate recs -Right elbow x-ray negative for acute osseous injury and osteomyelitis. Possible soft tissue defect at medial elbow vs skin fold -Consult vascular surgery, appreciate recs: Change wound vac from silver foam to black foam today. Try to use AV fistula for dialysis, if cannot will change permcath. -Was able to use fistula, will restart warfarin -Consult wound care nurse -Will add morphine 4 mg IV q4h prn pain in addition to tramadol. Pt had tolerated previous morphine dose after admission w/o adverse reaction CAD, HTN, HLD, h/o CVA -Continue Lopressor 25 mg PO BID, Lipitor 40 mg PO qd PAF--stable, sinus rhythm -Lopressor as above -Resume warfarin 3 mg PO qd -Continue to monitor INR DM II--last HgbA1c 7.3 on 11/23/17 -Lantus had been d/c'd in October admission. Sugars controlled here until surgery, now elevated due to that stress -Insulin sliding scale -Check BSGs q ac and qhs -HgbA1c 6.3 on 05/27 ESRD on HD--stable -Consult nephrology, appreciate recs: Spoke to Dr. Valadez. Current state of AV fistula is not ideal but will attempt to use for dialysis. Patient was kept NPO this morning in case permcath had to be exchanged. If able to use fistula, pt can eat -Fistula working -Continue Renagel Hypothyroidism -Continue Synthroid 250 mcg PO qd Depression - Continue Zoloft 37.5 mg PO qd DVT Prophaylxis - SCDs - Restart warfarin, currently subtherapeutic Code Status -Level I, FULL RESUSCITATION STATUS (Felicia Marquez ., PA-C) Supervising Note Dr. Storey I performed a history and physical examination on the patient. I reviewed above note and agree with it. I discussed plan with APC and patient. During my face to face encounter with the patient, I answered all of the patient's questions. consulted ID to assist with outpatient followup for duration of antibiotics. will continue current IV antibiotics. Patient is nearing discharge (Hamzah Storey M.D.)
--- NOTE | 2018-05-29 15:36 | Progress Note ---
Progress Note Date of Service May 29, 2018. Progress Note ID Consult Dictated #[id number] A/P: 1. Infected AVF - MRSA -Continue vanco, dose with HD, will need 4-6 weeks -Will need weekly cbc, cmp, vanco trough (maintain 15-20) -Can follow with ID in wound center post d/c -Thank you
--- NOTE | 2018-05-29 16:53 | INFECT. DISEASE CONSULTATION ---
DATE OF CONSULTATION: 05/29/2018 HISTORY OF PRESENT ILLNESS: This is a 57-year-old female who was admitted to the hospital secondary to infection and a right AV fistula. She was transferred from [facility]. She was recently seen by vascular surgery 2 weeks ago. She is unable to tell me when she began to have pain in her arm. She did go to the OR on the and underwent I and D of her graft. A VAC was placed. On my examination today, she is being evaluated by wound care and her VAC is being changed. She did have a peripheral wound cultures that are growing MRSA. Her blood cultures are negative. She is currently afebrile; however, she did have a T-max of 38.6. She is currently on vancomycin and aztreonam. She is tolerating these well. Her white blood cell count has improved to 8.8 from 12.6. Her only complaint on my exam is pain in the arm; however, she was able to undergo dialysis today through her AV fistula. She denies any chest pain, cough, shortness of breath, nausea, vomiting or diarrhea. REVIEW OF SYSTEMS: Her remaining review of systems is unremarkable. PAST MEDICAL HISTORY: Significant for anemia; chronic kidney disease, on dialysis; AV fistula; hypertension; secondary hyperparathyroidism. SOCIAL HISTORY: Significant for history of tobacco use. She denies any alcohol or drug use. FAMILY HISTORY: Noncontributory. ALLERGIES: INCLUDE SULFA ANTIBIOTICS, CEPHALEXIN, HYDROCHLOROTHIAZIDE, SULFONYLUREA AND OXYCODONE. MEDICATIONS: Coumadin, insulin, vancomycin, morphine, aztreonam, Mirapex, Senokot, Zoloft, Lipitor, Bumex, calcium, Colace, Lopressor, Protonix, Renagel, Ultram, Synthroid, Tylenol, Zofran. PHYSICAL EXAMINATION: VITAL SIGNS: She is currently afebrile, pulse 90, respiratory rate is in the teens, blood pressure is 113/43, oxygen saturation is 92% on room air. GENERAL: She is awake, alert and oriented x3. She is in no acute distress. HEENT: Mucous membranes are moist. Extraocular muscles are intact. HEART: Regular. LUNGS: Clear bilaterally. ABDOMEN: Soft, nontender, nondistended. EXTREMITIES: There is no lower extremity edema. SKIN: Without rash. Right upper extremity fistula. Dressing is intact. Her wound is open. There are minimal necrotic edges; however, there is good bleeding and no purulent drainage. There is a surrounding erythema and tenderness. LABORATORY STUDIES: CBC today, white blood cell count 8.8, hemoglobin 9, platelets 226. Chemistry panel: Sodium 133, potassium 4.8, chloride 97, bicarbonate 24, BUN 77, creatinine 7.2, glucose 227. Vancomycin level today is 20 at 8:00 a.m. She did receive a dose with dialysis. Wound culture is growing MRSA. Blood cultures are negative. ASSESSMENT AND PLAN: Infected AV fistula. She will remain on vancomycin which can be dosed around her dialysis schedule. She will likely need a range of 4-6 weeks. Blood cultures are negative. She will continue with care and can follow with infectious diseases in the wound center post-discharge from hospital as well. Thank you for this consultation.
[2018-05-29] MEDS: WARFARIN SOD 3 MG TAB PO SCH (16:55)
[2018-05-29] MEDS: ACETAMINOPHEN 325 MG TAB PO PRN (16:56)
[2018-05-29] MEDS: SERTRALINE HCL 50 MG TAB PO SCH (22:17)
[2018-05-29] MEDS: PRAMIPEXOLE DIHYDROCHLORIDE 0.25MG TAB PO SCH (22:18)
[2018-05-29] MEDS: SENNA 8.6 MG TAB PO SCH (22:18)
[2018-05-30] VITALS (17 sets, daily range): BP systolic 87–145; BP diastolic 38–71; PULSE 78–95; TEMP 36.7–37.2; O2SAT 92–99
[2018-05-30] MEDS: LEVOTHYROXINE 50 MCG TAB PO SCH (05:20)
[2018-05-30] MEDS: LEVOTHYROXINE 200 MCG TAB PO SCH (05:20)
[2018-05-30 06:33] LABS: HEMATOCRIT 26.7 % (37-47); HEMOGLOBIN 8.4 g/dL (12.0-16.0); MEAN CELL VOLUME 94.3 fL (80-100); MEAN CORPUSCULAR HEMOGLOBIN 29.7 pg (25-34); MEAN CORPUSCULAR HGB CONC 31.5 g/dl (32-36); MEAN PLATELET VOLUME 9.9 fL (7.4-10.4); PLATELET COUNT 216 K/uL (130-400); RED CELL DISTRIBUTION WIDTH CV 14.3 % (11.5-14.5); RED CELL DISTRIBUTION WIDTH SD 49.7 fL (36.4-46.3); WHITE BLOOD COUNT 8.22 K/uL (4.8-10.8)
[2018-05-30 06:44] LABS: INR 1.2 (0.9-1.1)
[2018-05-30 07:23] LABS: CALCIUM 8.1 mg/dl (8.5-10.1); CREATININE 5.05 mg/dl (0.60-1.20); POTASSIUM 4.2 mmol/L (3.5-5.1)
[2018-05-30] MEDS: DOCUSATE SODIUM 100 MG CAP PO SCH ×2 (08:57→21:54)
[2018-05-30] MEDS: SEVELAMER HYDROCH 800 MG TAB PO SCH ×2 (08:57→18:42)
[2018-05-30] MEDS: PANTOprazole SOD 40 MG TAB PO SCH (08:58)
[2018-05-30] MEDS: SODIUM BICARBONATE 650 MG TAB PO SCH (08:58)
[2018-05-30] MEDS: ATORVASTATIN 40 MG TAB PO SCH (08:58)
[2018-05-30] MEDS: CALCIUM CARBONATE 500 MG CHEWABLE PO SCH ×3 (08:59→21:52)
[2018-05-30] MEDS: METOPROLOL TARTRATE 25 MG TAB PO SCH ×2 (09:00→21:55)
[2018-05-30] MEDS: BUMETANIDE 1 MG TAB PO SCH (09:00)
[2018-05-30] MEDS: INSULIN ASPART 100 UNITS/ML 3 ML PEN SC SCH ×4 (09:06→21:00)
--- NOTE | 2018-05-30 09:29 | Nephrology Progress Note ---
Nephrology Progress Note Date of Service May 30, 2018. Chief Complaint ESRD Subjective Ms. Ardon was seen & examined in her hospital room this morning in preparation for HD. She currently denies fever, angina or dyspnea. She voices no new medical concerns. Review of Systems Constitutional: No fever Cardiovascular: No chest pain Respiratory: No dyspnea at rest Abdomen: No pain, No nausea, No vomiting Extremities: No leg edema A complete review of systems was performed. Pertinent positives are noted above. All other systems are negative. Vital Signs Last 8 Hrs Date Time Temp Pulse Resp B/P (MAP) Pulse Ox O2 Delivery O2 Flow Rate FiO2 05/30/18 07:10 37.2 90 17 116/54 (74) 92 Room Air Last Recorded Weight Weight (Kilograms): 108.700 Physical Exam General Appearance: no apparent distress Head: normocephalic, atraumatic Eyes: PERRL, EOMI Neck: no adenopathy, + pertinent finding (L IJ tunneled HD catheter w/ clean dry dressing in place) Respiratory/Chest: lungs clear, no respiratory distress Cardiovascular: regular rate, rhythm Abdomen/GI: normal bowel sounds, non tender, soft Extremities/Musculoskelatal: no calf tenderness, no pedal edema Neurologic/Psych: alert, oriented x 3 Social History Drug Use: none Occupation: disabled Laboratory Results Past 24 Hours 05/30/18 06:11 05/30/18 06:11 Test 05/29/18 13:53 05/29/18 17:06 05/29/18 20:19 05/29/18 20:32 Bedside Glucose 130 mg/dl (70-90) 151 mg/dl (70-90) 233 mg/dl (70-90) 241 mg/dl (70-90) Test 05/30/18 06:11 05/30/18 08:14 Red Blood Count 2.83 M/uL (4.2-5.4) Mean Corpuscular Volume 94.3 fL (80-100) Mean Corpuscular Hemoglobin 29.7 pg (25-34) Mean Corpuscular Hemoglobin Concent 31.5 g/dl (32-36) RDW Standard Deviation 49.7 fL (36.4-46.3) RDW Coefficient of Variation 14.3 % (11.5-14.5) Mean Platelet Volume 9.9 fL (7.4-10.4) Prothrombin Time 12.1 SECONDS (9.0-12.0) Prothromb Time International Ratio 1.2 (0.9-1.1) Anion Gap 9.0 mmol/L (3-11) Est Creatinine Clear Calc Drug Dose 14.2 ml/min Estimated GFR () 10.1 Estimated GFR (Non- 8.7 BUN/Creatinine Ratio 6.8 (10-20) Calcium Level 8.1 mg/dl (8.5-10.1) Random Vancomycin Level 22.5 mcg/ml Bedside Glucose 194 mg/dl (70-90) Allergies Coded Allergies: Oxycodone (Verified Allergy, Intermediate, HIVES,RASH, 05/08/18) PER [employer] Sulfa Antibiotics (Verified Allergy, Intermediate, HIVES,RASH, 05/08/18) PER [employer] Cephalexin (Verified Allergy, Mild, HIVES, 05/08/18) Penicillins (Verified Allergy, Mild, RASH, 05/28/18) Itchiness Hydrochlorothiazide w/Triamterene (Verified Allergy, Unknown, UNKNOWN, ) Sulfonylureas (Verified Allergy, Unknown, UNKNOWN, 05/08/18) Uncoded Allergies: CARBONIC (Allergy, Unknown, UNKNOWN, 10/24/17) CRBONIC ANHYDRASE INHIBITORS Medications Current Inpatient Medications Medications (Trade) Dose Ordered Sig/Kimmie Route Start Time Stop Time Status Last Admin Dose Admin Acetaminophen (Tylenol Tab) 650 mg Q4H PRN PO 05/26/18 23:00 06/25/18 22:59 05/29/18 16:56 650 MG Ondansetron HCl (Zofran Inj) 4 mg Q6H PRN IV 05/26/18 23:00 06/25/18 22:59 Glucose (Glucose 40% Gel) 15-30 GRAMS 15 GRAMS... UD PRN PO 05/26/18 23:00 06/25/18 22:59 Glucose (Glucose Chew Tab) 4-8 Tablets 4 Tabl... UD PRN PO 05/26/18 23:00 06/25/18 22:59 Dextrose (Dextrose 50% 50ML Syringe) 25-50ML 25ML FOR ... UD PRN IV 05/26/18 23:00 06/25/18 22:59 Glucagon (Glucagon Inj) 1 mg UD PRN SQ 05/26/18 23:00 06/25/18 22:59 Carbohydrates (Carbohydrates For Hypoglycemia) 15-30 GRAMS 15 grams if BSG 54-69... UD PRN PO 05/26/18 23:00 06/25/18 22:59 Atorvastatin Calcium (Lipitor Tab) 40 mg DAILY PO 05/27/18 09:00 06/26/18 08:59 05/30/18 08:58 40 MG Bisacodyl (Dulcolax Tab) 5 mg DAILY PRN PO 05/26/18 23:00 06/25/18 22:59 Bumetanide (Bumex Tab) 2 mg DAILY PO 05/27/18 09:00 06/26/18 08:59 05/29/18 08:50 2 MG Calcium Carbonate (Tums Chew Tab) 2,000 mg TID PO 05/27/18 09:00 06/26/18 08:59 05/30/18 08:59 2,000 MG Docusate Sodium (coLACE CAP) 100 mg BID PO 05/27/18 09:00 06/26/18 08:59 05/30/18 08:57 100 MG Levothyroxine Sodium (Synthroid Tab) 50 mcg DAILYBB PO 05/27/18 06:00 06/26/18 05:59 05/30/18 05:20 50 MCG Levothyroxine Sodium (Synthroid Tab) 200 mcg DAILYBB PO 05/27/18 06:00 06/26/18 05:59 05/30/18 05:20 200 MCG Metoprolol Tartrate (Lopressor Tab) 25 mg BID PO 05/27/18 09:00 06/26/18 08:59 05/29/18 22:17 25 MG Pantoprazole Sodium (Protonix Tab) 40 mg DAILY PO 05/27/18 09:00 06/26/18 08:59 05/30/18 08:58 40 MG Pramipexole Dihydrochloride (miraPEX TAB) 0.25 mg HS PO 05/27/18 21:00 06/26/18 20:59 05/29/18 22:18 0.25 MG Senna (Senokot Tab) 8.6 mg HS PO 05/27/18 21:00 06/26/18 20:59 7/6/18 22:18 8.6 MG Sevelamer HCl (Renagel Tab) 800 mg BIDM PO 05/27/18 08:30 06/26/18 08:29 05/30/18 08:57 800 MG Sodium Bicarbonate (Sodium Bicarbonate Tab) 650 mg DAILY PO 05/27/18 09:00 06/26/18 08:59 05/30/18 08:58 650 MG Vancomycin HCl (Consult) 1 ea UD PRN N/A 05/26/18 23:00 06/25/18 22:59 Tramadol HCl (Ultram Tab) 50 mg Q4H PRN PO 05/27/18 06:45 06/26/18 06:44 05/29/18 19:09 50 MG Sertraline HCl (Zoloft Tab) 37.5 mg HS PO 05/27/18 21:00 06/26/18 20:59 05/29/18 22:17 37.5 MG Morphine Sulfate (MoRPHine SULFATE INJ) 4 mg Q4H PRN IV 05/28/18 12:45 06/11/18 12:44 Insulin Aspart (novoLOG ASPART) SLIDING SCALE If C... ACHS SC 05/29/18 12:45 06/28/18 12:44 05/30/18 09:06 2 UNITS Warfarin Sodium (Coumadin Tab) 3 mg DAILY@16 PO 05/29/18 16:00 06/28/18 15:59 05/29/18 16:55 3 MG Impression (1) End-stage renal disease on hemodialysis (2) AV fistula infection (3) Dialysis AV fistula malfunction (4) Anemia (5) Secondary hyperparathyroidism of renal origin (6) Hypertension Kortney is a 57-year-old female with morbid obesity, diabetes mellitus II, hypertension, coronary artery disease, history of CVA, dementia, atrial fibrillation, hypothyroidism and ESRD. She is on TTS HD. She was admitted with dehiscence of right upper extremity wound. She is POD#2 s/p debridement and wound vac placement. Recommendations ESRD: -- HD today. Orders entered into EMR and HD RN notified -- Document I/O's -- Daily metabolic profile -- Renal diet including 1.5 L daily fluid restriction -- Patient still makes urine and is maintained on Bumex -- Patient is alkalemic. Will stop NaHCO3 Wound dehiscence: -- Dialysis nurse to attempt to cannulate proximal to necrotic area and wound vac -- If unable to access AVF, plan for permcath exchange Anemia: -- EPO will be provided with HD CKD/MBD: -- Sevelamer [facility] Hypertension: -- BP currently acceptable on home regiment
--- NOTE | 2018-05-30 13:10 | Hospitalist Progress Note ---
Hospitalist Progress Note Date of Service May 30, 2018. (Felicia Marquez ., LINDAC) Subjective Pt evaluation today including: conversation w/ patient, physical exam, chart review, lab review, review of inpatient medication list Patient reports feeling well. She states the pain in her RUE is improving, although it is currently sore now as she is getting dialysis through her fistula. She otherwise denies acute complaints. The patient denies fevers, chills, sweats, chest pain, palpitations, claudication, cough, wheezing, shortness of breath, nausea, vomiting, abdominal pain, dysuria, hematuria, urinary retention, paralysis, weakness, numbness and tingling. Additional Comments: See HPI for pertinent positives and negatives. All other systems reviewed and negative. (Felicia Marquez PA-C) Objective Vital Signs Date Time Temp Pulse Resp B/P (MAP) Pulse Ox O2 Delivery O2 Flow Rate FiO2 05/30/18 11:45 95 118/45 05/30/18 11:30 85 101/47 05/30/18 11:15 84 114/57 05/30/18 11:00 79 94/38 05/30/18 10:45 79 108/50 05/30/18 10:30 81 131/51 05/30/18 10:15 80 125/60 05/30/18 10:00 80 124/56 05/30/18 09:45 80 114/53 05/30/18 09:30 78 115/56 05/30/18 09:15 36.7 79 111/49 (69) 05/30/18 08:00 Room Air 05/30/18 07:10 37.2 90 17 116/54 (74) 92 Room Air 05/30/18 00:45 Room Air 05/29/18 22:48 36.9 89 17 125/71 (89) 96 Room Air 05/29/18 20:40 Room Air 05/29/18 15:52 36.9 91 18 137/80 (99) 96 Room Air 05/29/18 13:45 36.6 90 113/43 (66) 05/29/18 13:15 86 106/43 05/29/18 13:00 84 94/41 (Felicia Marquez PA-C) Physical Exam Notes: General appearance: +Morbidly obese. Well-developed, well-nourished, no apparent distress Head: Normocephalic, atraumatic Eyes: Normal inspection, PERRL, EOMI ENT: Normal ENT inspection, hearing grossly normal, pharynx normal Neck: Supple, no JVD, trachea midline Respiratory/Chest: +Perm cath left chest. Lungs clear to auscultation, normal breath sounds, no respiratory distress Cardiovascular: +Systolic murmur. Regular rate & rhythm, no gallop Abdomen/GI: Normal bowel sounds, non-tender, soft Extremities/Musculoskeletal: +Large wound R medial elbow with wound vac in place. Area very TTP. Fistula working. No calf tenderness, no pedal edema Neurological/Psych: Alert, normal mood/affect, oriented x 3 Skin: Normal color, warm/dry, no rash (Felicia Marquez ., FERNANDA) Laboratory Results Last 24 Hours Test 05/29/18 13:53 05/29/18 17:06 05/29/18 20:19 05/29/18 20:32 Bedside Glucose 130 mg/dl 151 mg/dl 233 mg/dl 241 mg/dl Test 05/30/18 06:11 05/30/18 08:14 05/30/18 08:47 05/30/18 12:11 White Blood Count 8.22 K/uL Red Blood Count 2.83 M/uL Hemoglobin 8.4 g/dL Hematocrit 26.7 % Mean Corpuscular Volume 94.3 fL Mean Corpuscular Hemoglobin 29.7 pg Mean Corpuscular Hemoglobin Concent 31.5 g/dl RDW Standard Deviation 49.7 fL RDW Coefficient of Variation 14.3 % Platelet Count 216 K/uL Mean Platelet Volume 9.9 fL Prothrombin Time 12.1 SECONDS Prothromb Time International Ratio 1.2 Sodium Level 130 mmol/L Potassium Level 4.2 mmol/L Chloride Level 95 mmol/L Carbon Dioxide Level 26 mmol/L Anion Gap 9.0 mmol/L Blood Urea Nitrogen 35 mg/dl Creatinine 5.05 mg/dl Est Creatinine Clear Calc Drug Dose 14.2 ml/min Estimated GFR () 10.1 Estimated GFR (Non- 8.7 BUN/Creatinine Ratio 6.8 Random Glucose 195 mg/dl Calcium Level 8.1 mg/dl Random Vancomycin Level 22.5 mcg/ml Hepatitis B Surface Antigen NEG Hepatitis B Surface Antibody POS Bedside Glucose 194 mg/dl 209 mg/dl 161 mg/dl (Felicia Marquez ., FERNANDA) Assessment and Plan 57 y/o female with a history of CAD, HTN, HLD, h/o CVA, a-fib, DM II, ESRD on HD , right arm steal syndrome, hypothyroidism, recurrent UTI, and GERD who presents w/wound dehiscence and infection of right AV fistula. Wound dehiscence/infection right AV fistula--improving -Admit to med/surg -Wound culture positive for MRSA -Blood cultures no growth to date -D/C aztreonam, continue vancomycin dosed after HD -Consult infectious disease, appreciate recs: Continue vancomycin after dialysis for total 4-6 weeks. Monitor weekly CBC, CMP, and vancomycin trough. Follow as outpatient with ID/wound care. -Right elbow x-ray negative for acute osseous injury and osteomyelitis. Possible soft tissue defect at medial elbow vs skin fold -Consult vascular surgery, appreciate recs: Change wound vac from silver foam to black foam. Try to use AV fistula for dialysis, if cannot will change permcath. -Was able to use fistula, will restart warfarin -Consult wound care nurse -Will add morphine 4 mg IV q4h prn pain in addition to tramadol. Pt had tolerated previous morphine dose after admission w/o adverse reaction CAD, HTN, HLD, h/o CVA -Continue Lopressor 25 mg PO BID, Lipitor 40 mg PO qd PAF--stable, sinus rhythm -Lopressor as above -Continue warfarin 3 mg PO qd -Continue to monitor INR, still subtherapeutic at 1.2 DM II--last HgbA1c 7.3 on 11/23/17 -Lantus had been d/c'd in October admission. Sugars controlled here until surgery, now elevated due to that stress. BSGs improving on POD #2 -Insulin sliding scale -Check BSGs q ac and qhs -HgbA1c 6.3 on 05/27 ESRD on HD--stable -Consult nephrology, appreciate recs: HD today per normal TTS schedule. Pt alkalemic, will stop NaHCO3. EPO w/HD. -Fistula working -Continue Renagel Hypothyroidism -Continue Synthroid 250 mcg PO qd Depression - Continue Zoloft 37.5 mg PO qd DVT Prophaylxis - SCDs - Restart warfarin, currently subtherapeutic Code Status -Level I, FULL RESUSCITATION STATUS Dispo -Permanent resident at [facility]. Talked w/case management, difficulty in getting wound vac over there and will likely stay the weekend (Felicia Marquez ., LINDAC) Supervising Note Dr. Storey I performed a history and physical examination on the patient. I reviewed above note and agree with it. I discussed plan with APC and patient. During my face to face encounter with the patient, I answered all of the patient's questions. Continue vancomycin after dialysis for total 4-6 weeks. Awaiting wound vac. Will f/u with ID and wound care as outpatient. (Hamzah Storey M.D.)
--- NOTE | 2018-05-30 13:29 | Pharmacy Progress Note ---
Pharmacy Abx Dose Short Note Date of Service May 30, 2018. Assessment & Plan Assessment 57 year old female receiving vancomycin for treatment of infected fistula. Per nephrology note, patient will receive HD again today and thus will need redosing. Day # 4 of antimicrobial therapy. Plan Vancomycin * Random level of 22.5 mcg/mL * Redose with 500 mg IV after HD today * Trough or random level ordered for: 05/31/18 Pharmacy will continue to follow and will adjust dose/frequency as necessary. Thank you.
[2018-05-30] MEDS: WARFARIN SOD 3 MG TAB PO SCH (17:11)
[2018-05-30] MEDS ORDERED: VANCOMYCIN IV 500 MG in SODIUM CHLORIDE 0.9% 250ML 250 ML IV ONE (18:00)
[2018-05-30] MEDS: SERTRALINE HCL 50 MG TAB PO SCH (21:51)
[2018-05-30] MEDS: SENNA 8.6 MG TAB PO SCH (21:53)
[2018-05-30] MEDS: PRAMIPEXOLE DIHYDROCHLORIDE 0.25MG TAB PO SCH (21:54)
[2018-05-31] MEDS: MoRPHine SULFATE 4 MG/ML 1 ML CARP\\VIAL IV PRN ×2 (04:05→22:29)
[2018-05-31] MEDS: LEVOTHYROXINE 50 MCG TAB PO SCH (05:16)
[2018-05-31] MEDS: LEVOTHYROXINE 200 MCG TAB PO SCH (05:16)
[2018-05-31 06:04] LABS: HEMATOCRIT 27.8 % (37-47); HEMOGLOBIN 8.9 g/dL (12.0-16.0); MEAN CELL VOLUME 94.9 fL (80-100); MEAN CORPUSCULAR HEMOGLOBIN 30.4 pg (25-34); MEAN PLATELET VOLUME 10.2 fL (7.4-10.4); PLATELET COUNT 195 K/uL (130-400); RED CELL DISTRIBUTION WIDTH CV 14.2 % (11.5-14.5); RED CELL DISTRIBUTION WIDTH SD 49.1 fL (36.4-46.3); WHITE BLOOD COUNT 8.28 K/uL (4.8-10.8)
[2018-05-31 06:10] LABS: INR 1.2 (0.9-1.1)
[2018-05-31 06:47] LABS: CALCIUM 8.9 mg/dl (8.5-10.1); CREATININE 4.74 mg/dl (0.60-1.20); POTASSIUM 4.1 mmol/L (3.5-5.1)
[2018-05-31 08:10] VITALS: BP 104/64; PULSE 91; TEMP 37.1; O2SAT 97
[2018-05-31] MEDS: ACETAMINOPHEN 325 MG TAB PO PRN (08:11)
[2018-05-31] MEDS: INSULIN ASPART 100 UNITS/ML 3 ML PEN SC SCH ×4 (08:58→20:59)
[2018-05-31] MEDS: DOCUSATE SODIUM 100 MG CAP PO SCH ×2 (08:58→20:57)
[2018-05-31] MEDS: BUMETANIDE 1 MG TAB PO SCH (08:59)
[2018-05-31] MEDS: ATORVASTATIN 40 MG TAB PO SCH (08:59)
[2018-05-31] MEDS: PANTOprazole SOD 40 MG TAB PO SCH (08:59)
[2018-05-31] MEDS: SEVELAMER HYDROCH 800 MG TAB PO SCH ×2 (08:59→17:59)
[2018-05-31] MEDS: CALCIUM CARBONATE 500 MG CHEWABLE PO SCH ×3 (09:00→20:58)
[2018-05-31] MEDS: METOPROLOL TARTRATE 25 MG TAB PO SCH ×2 (09:03→20:57)
[2018-05-31 09:07] VITALS: BP 106/68; PULSE 88
--- NOTE | 2018-05-31 10:24 | Nephrology Progress Note ---
Nephrology Progress Note Date of Service May 31, 2018. Chief Complaint ESRD Subjective Ms. Ardon was seen & examined in her hospital room this morning. She was dialyzed yesterday for 3.5 hours. Wound vac covers most of AVF site. Venous limb of AVF used for cannulation and IJ THC used as venous return. 1 L UF obtained. No complications noted during HD. Patient voices no new medical concerns. Review of Systems Constitutional: No fever Cardiovascular: No chest pain Respiratory: No dyspnea at rest Abdomen: No pain, No nausea, No vomiting Extremities: No leg edema A complete review of systems was performed. Pertinent positives are noted above. All other systems are negative. Vital Signs Last 8 Hrs Date Time Temp Pulse Resp B/P (MAP) Pulse Ox O2 Delivery O2 Flow Rate FiO2 05/31/18 09:07 88 106/68 (81) 05/31/18 08:10 37.1 91 17 104/64 (77) 97 Room Air Last Recorded Weight Weight (Kilograms): 111.300 Physical Exam General Appearance: no apparent distress Head: normocephalic, atraumatic Eyes: PERRL, EOMI Neck: no adenopathy Respiratory/Chest: lungs clear, no respiratory distress Cardiovascular: regular rate, rhythm Abdomen/GI: normal bowel sounds, non tender, soft Extremities/Musculoskelatal: + pertinent finding (R arm AVF with wound vac in place. AVF w/ + bruit above vac site) Neurologic/Psych: alert, oriented x 3 Social History Drug Use: none Occupation: disabled Laboratory Results Past 24 Hours 05/31/18 05:32 05/31/18 05:32 Test 05/30/18 12:11 05/30/18 17:11 05/30/18 20:21 05/31/18 05:32 Bedside Glucose 161 mg/dl (70-90) 171 mg/dl (70-90) 135 mg/dl (70-90) Red Blood Count 2.93 M/uL (4.2-5.4) Mean Corpuscular Volume 94.9 fL (80-100) Mean Corpuscular Hemoglobin 30.4 pg (25-34) Mean Corpuscular Hemoglobin Concent 32.0 g/dl (32-36) RDW Standard Deviation 49.1 fL (36.4-46.3) RDW Coefficient of Variation 14.2 % (11.5-14.5) Mean Platelet Volume 10.2 fL (7.4-10.4) Prothrombin Time 12.8 SECONDS (9.0-12.0) Prothromb Time International Ratio 1.2 (0.9-1.1) Anion Gap 7.0 mmol/L (3-11) Est Creatinine Clear Calc Drug Dose 15.3 ml/min Estimated GFR () 10.9 Estimated GFR (Non- 9.4 BUN/Creatinine Ratio 6.3 (10-20) Calcium Level 8.9 mg/dl (8.5-10.1) Random Vancomycin Level 23.3 mcg/ml Test 05/31/18 08:06 Bedside Glucose 150 mg/dl (70-90) Allergies Coded Allergies: Oxycodone (Verified Allergy, Intermediate, HIVES,RASH, 05/08/18) PER [employer] REC[employer] Sulfa Antibiotics (Verified Allergy, Intermediate, HIVES,RASH, 05/08/18) PER [employer] Cephalexin (Verified Allergy, Mild, HIVES, 05/08/18) Penicillins (Verified Allergy, Mild, RASH, 05/28/18) Itchiness Hydrochlorothiazide w/Triamterene (Verified Allergy, Unknown, UNKNOWN, ) Sulfonylureas (Verified Allergy, Unknown, UNKNOWN, 05/08/18) Uncoded Allergies: CARBONIC (Allergy, Unknown, UNKNOWN, 10/24/17) CRBONIC ANHYDRASE INHIBITORS Medications Current Inpatient Medications Medications (Trade) Dose Ordered Sig/Kimmie Route Start Time Stop Time Status Last Admin Dose Admin Acetaminophen (Tylenol Tab) 650 mg Q4H PRN PO 05/26/18 23:00 06/25/18 22:59 05/31/18 08:11 650 MG Ondansetron HCl (Zofran Inj) 4 mg Q6H PRN IV 05/26/18 23:00 06/25/18 22:59 Glucose (Glucose 40% Gel) 15-30 GRAMS 15 GRAMS... UD PRN PO 05/26/18 23:00 06/25/18 22:59 Glucose (Glucose Chew Tab) 4-8 Tablets 4 Tabl... UD PRN PO 05/26/18 23:00 06/25/18 22:59 Dextrose (Dextrose 50% 50ML Syringe) 25-50ML 25ML FOR ... UD PRN IV 05/26/18 23:00 06/25/18 22:59 Glucagon (Glucagon Inj) 1 mg UD PRN SQ 05/26/18 23:00 06/25/18 22:59 Carbohydrates (Carbohydrates For Hypoglycemia) 15-30 GRAMS 15 grams if BSG 54-69... UD PRN PO 05/26/18 23:00 06/25/18 22:59 Atorvastatin Calcium (Lipitor Tab) 40 mg DAILY PO 05/27/18 09:00 06/26/18 08:59 05/31/18 08:59 40 MG Bisacodyl (Dulcolax Tab) 5 mg DAILY PRN PO 05/26/18 23:00 06/25/18 22:59 Bumetanide (Bumex Tab) 2 mg DAILY PO 05/27/18 09:00 06/26/18 08:59 05/31/18 08:59 2 MG Calcium Carbonate (Tums Chew Tab) 2,000 mg TID PO 05/27/18 09:00 06/26/18 08:59 05/31/18 09:00 2,000 MG Docusate Sodium (coLACE CAP) 100 mg BID PO 05/27/18 09:00 06/26/18 08:59 05/31/18 08:58 100 MG Levothyroxine Sodium (Synthroid Tab) 50 mcg DAILYBB PO 05/27/18 06:00 06/26/18 05:59 05/31/18 05:16 50 MCG Levothyroxine Sodium (Synthroid Tab) 200 mcg DAILYBB PO 05/27/18 06:00 06/26/18 05:59 05/31/18 05:16 200 MCG Metoprolol Tartrate (Lopressor Tab) 25 mg BID PO 05/27/18 09:00 06/26/18 08:59 05/31/18 09:03 25 MG Pantoprazole Sodium (Protonix Tab) 40 mg DAILY PO 05/27/18 09:00 06/26/18 08:59 05/31/18 08:59 40 MG Pramipexole Dihydrochloride (miraPEX TAB) 0.25 mg HS PO 05/27/18 21:00 06/26/18 20:59 05/30/18 21:54 0.25 MG Senna (Senokot Tab) 8.6 mg HS PO 05/27/18 21:00 06/26/18 20:59 05/30/18 21:53 8.6 MG Sevelamer HCl (Renagel Tab) 800 mg BIDM PO 05/27/18 08:30 06/26/18 08:29 05/31/18 08:59 800 MG Vancomycin HCl (Consult) 1 ea UD PRN N/A 05/26/18 23:00 06/25/18 22:59 Tramadol HCl (Ultram Tab) 50 mg Q4H PRN PO 05/27/18 06:45 06/26/18 06:44 05/29/18 19:09 50 MG Sertraline HCl (Zoloft Tab) 37.5 mg HS PO 05/27/18 21:00 06/26/18 20:59 05/30/18 21:51 37.5 MG Morphine Sulfate (MoRPHine SULFATE INJ) 4 mg Q4H PRN IV 05/28/18 12:45 06/11/18 12:44 05/31/18 04:05 4 MG Insulin Aspart (novoLOG ASPART) SLIDING SCALE If C... ACHS SC 05/29/18 12:45 06/28/18 12:44 05/31/18 08:58 8 UNITS Warfarin Sodium (Coumadin Tab) 3 mg DAILY@16 PO 05/29/18 16:00 06/28/18 15:59 05/30/18 17:11 3 MG Impression (1) End-stage renal disease on hemodialysis (2) AV fistula infection (3) Dialysis AV fistula malfunction (4) Anemia (5) Secondary hyperparathyroidism of renal origin (6) Hypertension Kortney is a 57-year-old female with morbid obesity, diabetes mellitus II, hypertension, coronary artery disease, history of CVA, dementia, atrial fibrillation, hypothyroidism and ESRD. She is on TTS HD. She was admitted with dehiscence of right upper extremity wound. She is POD#2 s/p debridement and wound vac placement. Recommendations ESRD: -- Patient dialyzed yesterday using both AVF and IJ THC. No complications. Volume status & electrolyte balance are acceptable at this time. No acute indication for HD today. -- Document I/O's -- Daily metabolic profile -- Renal diet including 1.5 L daily fluid restriction -- Patient still makes urine and is maintained on Bumex -- Patient is alkalemic. Will stop NaHCO3 Anemia: -- EPO was provided with HD CKD/MBD: -- Sevelamer [facility] Hypertension: -- BP currently acceptable on home regimen Other: -- If discharge is anticipated patient will need to resume her regular outpatient TTS dialysis schedule in [facility]
--- NOTE | 2018-05-31 12:05 | Pharmacy Progress Note ---
Pharmacy Abx Dose Short Note Date of Service May 31, 2018. Assessment & Plan Assessment 57 year old female receiving vancomycin for treatment of possible infected AV fistula. Per nephrology note, no HD planned for today. Plan Vancomycin * Post HD random level of 23.3 mcg/mL is adequate at this time. * Redose (250mg-500mg IV X 1) after next dialysis session Pharmacy will continue to follow and will adjust dose/frequency as necessary. Thank you.
--- NOTE | 2018-05-31 14:49 | Hospitalist Progress Note ---
Hospitalist Progress Note Date of Service May 31, 2018. (Felicia Marquez ., PA-C) Subjective Pt evaluation today including: conversation w/ patient, physical exam, chart review, lab review, review of inpatient medication list Pain: 5/10 aching pain in RUE PO Intake: Tolerating PO diet Voiding: no voiding problems Patient reports feeling tired and was sleeping when I entered the room. She also states she's had nausea all day but denies any abdominal pain or vomiting. She states the pain in her RUE has been improving and is currently a 5/10 aching pain. The patient denies fevers, chills, sweats, chest pain, palpitations, claudication, cough, wheezing, shortness of breath, vomiting, abdominal pain, dysuria, hematuria, urinary retention, paralysis, weakness, numbness and tingling. Additional Comments: See HPI for pertinent positives and negatives. All other systems reviewed and negative. (Felicia Marquez ., PA-C) Objective Vital Signs Date Time Temp Pulse Resp B/P (MAP) Pulse Ox O2 Delivery O2 Flow Rate FiO2 05/31/18 09:07 88 106/68 (81) 05/31/18 08:10 37.1 91 17 104/64 (77) 97 Room Air 05/31/18 07:52 Room Air 05/31/18 00:10 Room Air 05/30/18 23:05 37.0 92 16 110/45 (66) 94 Room Air 05/30/18 16:40 Room Air 05/30/18 15:24 36.7 91 16 145/71 (95) 99 Room Air (Felicia Marquez ., PA-C) Physical Exam Notes: General appearance: +Morbidly obese. Well-developed, well-nourished, no apparent distress Head: Normocephalic, atraumatic Eyes: Normal inspection, PERRL, EOMI ENT: Normal ENT inspection, hearing grossly normal, pharynx normal Neck: Supple, no JVD, trachea midline Respiratory/Chest: +Perm cath left chest. Lungs clear to auscultation, normal breath sounds, no respiratory distress Cardiovascular: +Systolic murmur. Regular rate & rhythm, no gallop Abdomen/GI: Normal bowel sounds, non-tender, soft Extremities/Musculoskeletal: +Large wound R medial elbow with wound vac in place. Area very TTP. Fistula working. No calf tenderness, no pedal edema Neurological/Psych: Alert, normal mood/affect, oriented x 3 Skin: Normal color, warm/dry, no rash (Felicia Marquez, LINDAC) Laboratory Results Last 24 Hours Test 05/30/18 17:11 05/30/18 20:21 05/31/18 05:32 05/31/18 08:06 Bedside Glucose 171 mg/dl 135 mg/dl 150 mg/dl White Blood Count 8.28 K/uL Red Blood Count 2.93 M/uL Hemoglobin 8.9 g/dL Hematocrit 27.8 % Mean Corpuscular Volume 94.9 fL Mean Corpuscular Hemoglobin 30.4 pg Mean Corpuscular Hemoglobin Concent 32.0 g/dl RDW Standard Deviation 49.1 fL RDW Coefficient of Variation 14.2 % Platelet Count 195 K/uL Mean Platelet Volume 10.2 fL Prothrombin Time 12.8 SECONDS Prothromb Time International Ratio 1.2 Sodium Level 131 mmol/L Potassium Level 4.1 mmol/L Chloride Level 97 mmol/L Carbon Dioxide Level 27 mmol/L Anion Gap 7.0 mmol/L Blood Urea Nitrogen 30 mg/dl Creatinine 4.74 mg/dl Est Creatinine Clear Calc Drug Dose 15.3 ml/min Estimated GFR () 10.9 Estimated GFR (Non- 9.4 BUN/Creatinine Ratio 6.3 Random Glucose 154 mg/dl Calcium Level 8.9 mg/dl Random Vancomycin Level 23.3 mcg/ml Test 05/31/18 12:14 Bedside Glucose 181 mg/dl (Felicia Marquez .SILVESTRE-C) Assessment and Plan 57 y/o female with a history of CAD, HTN, HLD, h/o CVA, a-fib, DM II, ESRD on HD , right arm steal syndrome, hypothyroidism, recurrent UTI, and GERD who presents w/wound dehiscence and infection of right AV fistula. Wound dehiscence/infection right AV fistula--improving -Admit to med/surg -Wound culture positive for MRSA -Blood cultures no growth to date -D/C aztreonam, continue vancomycin dosed after HD -Consult infectious disease, appreciate recs: Continue vancomycin after dialysis for total 4-6 weeks. Monitor weekly CBC, CMP, and vancomycin trough. Follow as outpatient with ID/wound care. -Right elbow x-ray negative for acute osseous injury and osteomyelitis. Possible soft tissue defect at medial elbow vs skin fold -Consult vascular surgery, appreciate recs: Change wound vac from silver foam to black foam. Try to use AV fistula for dialysis, if cannot will change permcath. -Was able to use fistula, will restart warfarin -Consult wound care nurse -Will add morphine 4 mg IV q4h prn pain in addition to tramadol. Pt had tolerated previous morphine dose after admission w/o adverse reaction CAD, HTN, HLD, h/o CVA -Continue Lopressor 25 mg PO BID, Lipitor 40 mg PO qd PAF--stable, sinus rhythm -Lopressor as above -Continue warfarin 3 mg PO qd -INR 1.2 on 05/31, unchanged from previous DM II--last HgbA1c 7.3 on 11/23/17 -Lantus had been d/c'd in October admission. Sugars controlled here until surgery, now elevated due to that stress. BSGs continue to improve now after surgery -Insulin sliding scale -Check BSGs q ac and qhs -HgbA1c 6.3 on 05/27 ESRD on HD--stable -Consult nephrology, appreciate recs: No acute indication for HD today. -Fistula working -Continue Renagel Hypothyroidism -Continue Synthroid 250 mcg PO qd Depression - Continue Zoloft 37.5 mg PO qd DVT Prophaylxis - SCDs - Restart warfarin, currently subtherapeutic Code Status -Level I, FULL RESUSCITATION STATUS Dispo -Permanent resident at [facility]. Talked w/case management, difficulty in getting wound vac over there and will likely stay the weekend (Felicia aMrquez ., PA-C) Supervising Note Dr. Storey I performed a history and physical examination on the patient. I reviewed above note and agree with it. I discussed plan with APC and patient. During my face to face encounter with the patient, I answered all of the patient's questions. Continue vancomycin after dialysis for total 4-6 weeks. Awaiting wound vac. Will f/u with ID and wound care as outpatient. Patient is staying over the weekend as case management is looking to obtain a wound vac for patient on discharge. (Hamzah Storey M.D.)
[2018-05-31 15:27] VITALS: BP 108/50; PULSE 83; TEMP 36.8; O2SAT 98
[2018-05-31] MEDS: WARFARIN SOD 3 MG TAB PO SCH (16:16)
[2018-05-31 20:57] VITALS: BP 137/83; PULSE 91
[2018-05-31] MEDS: SERTRALINE HCL 50 MG TAB PO SCH (20:58)
[2018-05-31] MEDS: SENNA 8.6 MG TAB PO SCH (20:58)
[2018-05-31] MEDS: PRAMIPEXOLE DIHYDROCHLORIDE 0.25MG TAB PO SCH (20:58)
[2018-05-31] MEDS: TRAMADOL HCL 50 MG TAB PO PRN (21:04)
[2018-05-31 23:19] VITALS: BP 134/63; PULSE 86; TEMP 37.1; O2SAT 91
[2018-06-01] MEDS: LEVOTHYROXINE 50 MCG TAB PO SCH (05:23)
[2018-06-01] MEDS: LEVOTHYROXINE 200 MCG TAB PO SCH (05:23)
[2018-06-01 06:47] LABS: HEMATOCRIT 29.1 % (37-47); HEMOGLOBIN 9.2 g/dL (12.0-16.0); MEAN CELL VOLUME 94.2 fL (80-100); MEAN CORPUSCULAR HEMOGLOBIN 29.8 pg (25-34); MEAN CORPUSCULAR HGB CONC 31.6 g/dl (32-36); MEAN PLATELET VOLUME 10.3 fL (7.4-10.4); PLATELET COUNT 223 K/uL (130-400); RED CELL DISTRIBUTION WIDTH CV 14.4 % (11.5-14.5); RED CELL DISTRIBUTION WIDTH SD 48.7 fL (36.4-46.3); WHITE BLOOD COUNT 9.01 K/uL (4.8-10.8)
[2018-06-01 06:55] LABS: INR 1.4 (0.9-1.1)
[2018-06-01 07:02] VITALS: BP 139/80; PULSE 83; TEMP 37.1; O2SAT 94
[2018-06-01 07:27] LABS: CALCIUM 8.7 mg/dl (8.5-10.1); CREATININE 6.13 mg/dl (0.60-1.20); POTASSIUM 4.7 mmol/L (3.5-5.1)
[2018-06-01] MEDS: SEVELAMER HYDROCH 800 MG TAB PO SCH ×2 (08:55→18:03)
[2018-06-01] MEDS: PANTOprazole SOD 40 MG TAB PO SCH (08:56)
[2018-06-01] MEDS: METOPROLOL TARTRATE 25 MG TAB PO SCH ×2 (08:56→21:11)
[2018-06-01] MEDS: BUMETANIDE 1 MG TAB PO SCH (08:56)
[2018-06-01] MEDS: DOCUSATE SODIUM 100 MG CAP PO SCH ×2 (08:56→21:11)
[2018-06-01] MEDS: CALCIUM CARBONATE 500 MG CHEWABLE PO SCH ×3 (08:56→21:11)
[2018-06-01] MEDS: ATORVASTATIN 40 MG TAB PO SCH (08:57)
[2018-06-01] MEDS: INSULIN ASPART 100 UNITS/ML 3 ML PEN SC SCH ×4 (09:00→21:00)
[2018-06-01] MEDS: TRAMADOL HCL 50 MG TAB PO PRN (09:21)
--- NOTE | 2018-06-01 09:40 | Nephrology Progress Note ---
Nephrology Progress Note Date of Service Jun 01, 2018. Chief Complaint ESRD Subjective Ms. Ardon was seen & examined in her hospital room this morning. She was breathing comfortably on RA while flat in bed. At the time of my exam patient was having her wound vac changed. Surgical site appeared clean. AVF noted to have faint bruit proximal to surgical site. Review of Systems Constitutional: No fever Cardiovascular: No chest pain Respiratory: No dyspnea at rest Abdomen: No pain, No nausea, No vomiting Extremities: No leg edema A complete review of systems was performed. Pertinent positives are noted above. All other systems are negative. Vital Signs Last 8 Hrs Date Time Temp Pulse Resp B/P (MAP) Pulse Ox O2 Delivery O2 Flow Rate FiO2 06/01/18 07:02 37.1 83 18 139/80 (99) 94 Room Air Last Recorded Weight Weight (Kilograms): 111.600 Physical Exam General Appearance: no apparent distress Head: normocephalic, atraumatic Eyes: PERRL, EOMI Neck: + pertinent finding (L IJ THC w/ clean dry dressing) Respiratory/Chest: lungs clear Cardiovascular: regular rate, rhythm Abdomen/GI: normal bowel sounds, non tender, soft Extremities/Musculoskelatal: + pertinent finding (R upper arm AVF w/ faint bruit) Neurologic/Psych: alert Social History Drug Use: none Occupation: disabled Laboratory Results Past 24 Hours 06/01/18 06:19 06/01/18 06:19 Test 05/31/18 12:14 05/31/18 17:00 05/31/18 20:33 06/01/18 06:19 Bedside Glucose 181 mg/dl (70-90) 107 mg/dl (70-90) 149 mg/dl (70-90) Red Blood Count 3.09 M/uL (4.2-5.4) Mean Corpuscular Volume 94.2 fL (80-100) Mean Corpuscular Hemoglobin 29.8 pg (25-34) Mean Corpuscular Hemoglobin Concent 31.6 g/dl (32-36) RDW Standard Deviation 48.7 fL (36.4-46.3) RDW Coefficient of Variation 14.4 % (11.5-14.5) Mean Platelet Volume 10.3 fL (7.4-10.4) Prothrombin Time 14.1 SECONDS (9.0-12.0) Prothromb Time International Ratio 1.4 (0.9-1.1) Anion Gap 11.0 mmol/L (3-11) Est Creatinine Clear Calc Drug Dose 11.9 ml/min Estimated GFR () 8.0 Estimated GFR (Non- 6.9 BUN/Creatinine Ratio 6.5 (10-20) Calcium Level 8.7 mg/dl (8.5-10.1) Chemistry Specimen Hemolysis Test 06/01/18 08:05 Bedside Glucose 170 mg/dl (70-90) Allergies Coded Allergies: Oxycodone (Verified Allergy, Intermediate, HIVES,RASH, 05/08/18) PER [employer] Sulfa Antibiotics (Verified Allergy, Intermediate, HIVES,RASH, 05/08/18) PER [employer] Cephalexin (Verified Allergy, Mild, HIVES, 05/08/18) Penicillins (Verified Allergy, Mild, RASH, 05/28/18) Itchiness Hydrochlorothiazide w/Triamterene (Verified Allergy, Unknown, UNKNOWN, ) Sulfonylureas (Verified Allergy, Unknown, UNKNOWN, 05/08/18) Uncoded Allergies: CARBONIC (Allergy, Unknown, UNKNOWN, 10/24/17) CRBONIC ANHYDRASE INHIBITORS Medications Current Inpatient Medications Medications (Trade) Dose Ordered Sig/Kimmie Route Start Time Stop Time Status Last Admin Dose Admin Acetaminophen (Tylenol Tab) 650 mg Q4H PRN PO 05/26/18 23:00 06/25/18 22:59 05/31/18 08:11 650 MG Ondansetron HCl (Zofran Inj) 4 mg Q6H PRN IV 05/26/18 23:00 06/25/18 22:59 Glucose (Glucose 40% Gel) 15-30 GRAMS 15 GRAMS... UD PRN PO 05/26/18 23:00 06/25/18 22:59 Glucose (Glucose Chew Tab) 4-8 Tablets 4 Tabl... UD PRN PO 05/26/18 23:00 06/25/18 22:59 Dextrose (Dextrose 50% 50ML Syringe) 25-50ML 25ML FOR ... UD PRN IV 05/26/18 23:00 06/25/18 22:59 Glucagon (Glucagon Inj) 1 mg UD PRN SQ 05/26/18 23:00 06/25/18 22:59 Carbohydrates (Carbohydrates For Hypoglycemia) 15-30 GRAMS 15 grams if BSG 54-69... UD PRN PO 05/26/18 23:00 06/25/18 22:59 Atorvastatin Calcium (Lipitor Tab) 40 mg DAILY PO 05/27/18 09:00 06/26/18 08:59 06/01/18 08:57 40 MG Bisacodyl (Dulcolax Tab) 5 mg DAILY PRN PO 05/26/18 23:00 06/25/18 22:59 Bumetanide (Bumex Tab) 2 mg DAILY PO 05/27/18 09:00 06/26/18 08:59 06/01/18 08:56 2 MG Calcium Carbonate (Tums Chew Tab) 2,000 mg TID PO 05/27/18 09:00 06/26/18 08:59 06/01/18 08:56 2,000 MG Docusate Sodium (coLACE CAP) 100 mg BID PO 05/27/18 09:00 06/26/18 08:59 06/01/18 08:56 100 MG Levothyroxine Sodium (Synthroid Tab) 50 mcg DAILYBB PO 05/27/18 06:00 06/26/18 05:59 06/01/18 05:23 50 MCG Levothyroxine Sodium (Synthroid Tab) 200 mcg DAILYBB PO 05/27/18 06:00 06/26/18 05:59 06/01/18 05:23 200 MCG Metoprolol Tartrate (Lopressor Tab) 25 mg BID PO 05/27/18 09:00 06/26/18 08:59 06/01/18 08:56 25 MG Pantoprazole Sodium (Protonix Tab) 40 mg DAILY PO 05/27/18 09:00 06/26/18 08:59 06/01/18 08:56 40 MG Pramipexole Dihydrochloride (miraPEX TAB) 0.25 mg HS PO 05/27/18 21:00 06/26/18 20:59 05/31/18 20:58 0.25 MG Senna (Senokot Tab) 8.6 mg HS PO 05/27/18 21:00 06/26/18 20:59 05/31/18 20:58 8.6 MG Sevelamer HCl (Renagel Tab) 800 mg BIDM PO 05/27/18 08:30 06/26/18 08:29 06/01/18 08:55 800 MG Vancomycin HCl (Consult) 1 ea UD PRN N/A 05/26/18 23:00 06/25/18 22:59 Tramadol HCl (Ultram Tab) 50 mg Q4H PRN PO 05/27/18 06:45 06/26/18 06:44 06/01/18 09:21 50 MG Sertraline HCl (Zoloft Tab) 37.5 mg HS PO 05/27/18 21:00 06/26/18 20:59 05/31/18 20:58 37.5 MG Morphine Sulfate (MoRPHine SULFATE INJ) 4 mg Q4H PRN IV 05/28/18 12:45 06/11/18 12:44 05/31/18 22:29 4 MG Insulin Aspart (novoLOG ASPART) SLIDING SCALE If C... ACHS SC 05/29/18 12:45 06/28/18 12:44 06/01/18 09:00 7 UNITS Warfarin Sodium (Coumadin Tab) 3 mg DAILY@16 PO 05/29/18 16:00 06/28/18 15:59 05/31/18 16:16 3 MG Impression (1) End-stage renal disease on hemodialysis (2) AV fistula infection (3) Dialysis AV fistula malfunction (4) Anemia (5) Secondary hyperparathyroidism of renal origin (6) Hypertension Kortney is a 57-year-old female with morbid obesity, diabetes mellitus II, hypertension, coronary artery disease, history of CVA, dementia, atrial fibrillation, hypothyroidism and ESRD. She is on TTS HD. She was admitted with dehiscence of right upper extremity wound. She is POD#2 s/p debridement and wound vac placement. Recommendations ESRD: -- Volume status and electrolyte balance are acceptable. No acute indication for HD at this time. Will schedule next HD for 06/02 am. -- Daily metabolic profile -- Renal diet including 1.5 L daily fluid restriction -- Patient still makes urine and is maintained on Bumex ANEMIA: -- EPO will be provided with HD CKD/MBD: -- Sevelamer QA HTN: -- BP currently acceptable on home regimen OTHER: -- When discharge is anticipated patient will need to resume her regular outpatient TTS dialysis schedule in [facility]
--- NOTE | 2018-06-01 09:46 | Progress Note ---
Progress Note Date of Service: Jun 01, 2018. Subjective 57 yo f with multiple medical problems, s/p R arm wound dehiscence and subsequent debridement last week by Dr Meza, seen in f/u today. Pt states pain is controlled, but is easily fatigued. Denies any other new complaints. WOund vac in place. Objective Vital Signs Vital Signs Past 12 Hours Date Time Temp Pulse Resp B/P (MAP) Pulse Ox O2 Delivery O2 Flow Rate FiO2 06/01/18 07:02 37.1 83 18 139/80 (99) 94 Room Air 05/31/18 23:40 Room Air 05/31/18 23:19 37.1 86 15 134/63 (86) 91 Room Air Exam CONST; A&O x 2, NAD, chronically ill appearing female EXT: R arm wound vac removed and replaced today. Excellent granulation noted in wound bed. No erythema or purulence noted. Minimal bloody drainage noted. + thrill/bruit over AVF. + radial pulse R wrist. Finger wounds with dry eschars noted, smaller in size. + brisk cap refill. Laboratory and Microbiology Results Past 24 Hours Test 05/31/18 12:14 05/31/18 17:00 05/31/18 20:33 06/01/18 06:19 Range/Units Bedside Glucose 181 107 149 70-90 mg/dl White Blood Count 9.01 4.8-10.8 K/uL Red Blood Count 3.09 4.2-5.4 M/uL Hemoglobin 9.2 12.0-16.0 g/dL Hematocrit 29.1 37-47 % Mean Corpuscular Volume 94.2 80-100 fL Mean Corpuscular Hemoglobin 29.8 25-34 pg Mean Corpuscular Hemoglobin Concent 31.6 32-36 g/dl RDW Standard Deviation 48.7 36.4-46.3 fL RDW Coefficient of Variation 14.4 11.5-14.5 % Platelet Count 223 130-400 K/uL Mean Platelet Volume 10.3 7.4-10.4 fL Prothrombin Time 14.1 9.0-12.0 SECONDS Prothromb Time International Ratio 1.4 0.9-1.1 Sodium Level 130 136-145 mmol/L Potassium Level 4.7 3.5-5.1 mmol/L Chloride Level 96 98-107 mmol/L Carbon Dioxide Level 23 21-32 mmol/L Anion Gap 11.0 3-11 mmol/L Blood Urea Nitrogen 40 7-18 mg/dl Creatinine 6.13 0.60-1.20 mg/dl Est Creatinine Clear Calc Drug Dose 11.9 ml/min Estimated GFR () 8.0 Estimated GFR (Non- 6.9 BUN/Creatinine Ratio 6.5 10-20 Random Glucose 147 70-99 mg/dl Calcium Level 8.7 8.5-10.1 mg/dl Chemistry Specimen Hemolysis Test 06/01/18 08:05 Range/Units Bedside Glucose 170 70-90 mg/dl ASSESSMENT and PLAN: s/p R arm wound debridement R arm wound dehiscence Pt doing well post op. Continue current tx.
--- NOTE | 2018-06-01 13:42 | Hospitalist Progress Note ---
Hospitalist Progress Note Date of Service Jun 01, 2018. Subjective Pt evaluation today including: conversation w/ patient, conversation w/ design center consultant (Discussed with Dr. Brandt) Patient reports no complaints at this time. Eager to return home. Wound vac was changed out today and reporting no pain at this time. She will F/U with wound care and ID as outpatient with IV Abx x 4-6 weeks with dialysis She has a rather weak thrill/bruit - was able to use this for dialysis the other day and will make sure it functions during tomorrows session - permcath can be used to place medications but cannot get things off from it There is a wound vac at her SNF. Possible back to SNF tomorrow after dialysis Constitutional: No fever, No chills Respiratory: No cough, No shortness of breath Abdomen: No pain, No nausea, No vomiting, No diarrhea, No constipation Musculoskeletal: No swelling, No calf pain Female : No dysuria Neurologic: No numbness/tingling Heme: No abnormal bleeding/bruising Medications Current Inpatient Medications Medications (Trade) Dose Ordered Sig/Kimmie Route Start Time Stop Time Status Last Admin Dose Admin Acetaminophen (Tylenol Tab) 650 mg Q4H PRN PO 05/26/18 23:00 06/25/18 22:59 05/31/18 08:11 650 MG Ondansetron HCl (Zofran Inj) 4 mg Q6H PRN IV 05/26/18 23:00 06/25/18 22:59 Glucose (Glucose 40% Gel) 15-30 GRAMS 15 GRAMS... UD PRN PO 05/26/18 23:00 06/25/18 22:59 Glucose (Glucose Chew Tab) 4-8 Tablets 4 Tabl... UD PRN PO 05/26/18 23:00 06/25/18 22:59 Dextrose (Dextrose 50% 50ML Syringe) 25-50ML 25ML FOR ... UD PRN IV 05/26/18 23:00 06/25/18 22:59 Glucagon (Glucagon Inj) 1 mg UD PRN SQ 05/26/18 23:00 06/25/18 22:59 Carbohydrates (Carbohydrates For Hypoglycemia) 15-30 GRAMS 15 grams if BSG 54-69... UD PRN PO 05/26/18 23:00 06/25/18 22:59 Atorvastatin Calcium (Lipitor Tab) 40 mg DAILY PO 05/27/18 09:00 06/26/18 08:59 06/01/18 08:57 40 MG Bisacodyl (Dulcolax Tab) 5 mg DAILY PRN PO 05/26/18 23:00 06/25/18 22:59 Bumetanide (Bumex Tab) 2 mg DAILY PO 05/27/18 09:00 06/26/18 08:59 06/01/18 08:56 2 MG Calcium Carbonate (Tums Chew Tab) 2,000 mg TID PO 05/27/18 09:00 06/26/18 08:59 06/01/18 08:56 2,000 MG Docusate Sodium (coLACE CAP) 100 mg BID PO 05/27/18 09:00 06/26/18 08:59 06/01/18 08:56 100 MG Levothyroxine Sodium (Synthroid Tab) 50 mcg DAILYBB PO 05/27/18 06:00 06/26/18 05:59 06/01/18 05:23 50 MCG Levothyroxine Sodium (Synthroid Tab) 200 mcg DAILYBB PO 05/27/18 06:00 06/26/18 05:59 06/01/18 05:23 200 MCG Metoprolol Tartrate (Lopressor Tab) 25 mg BID PO 05/27/18 09:00 06/26/18 08:59 06/01/18 08:56 25 MG Pantoprazole Sodium (Protonix Tab) 40 mg DAILY PO 05/27/18 09:00 06/26/18 08:59 06/01/18 08:56 40 MG Pramipexole Dihydrochloride (miraPEX TAB) 0.25 mg HS PO 05/27/18 21:00 06/26/18 20:59 05/31/18 20:58 0.25 MG Senna (Senokot Tab) 8.6 mg HS PO 05/27/18 21:00 06/26/18 20:59 05/31/18 20:58 8.6 MG Sevelamer HCl (Renagel Tab) 800 mg BIDM PO 05/27/18 08:30 06/26/18 08:29 06/01/18 08:55 800 MG Vancomycin HCl (Consult) 1 ea UD PRN N/A 05/26/18 23:00 06/25/18 22:59 Tramadol HCl (Ultram Tab) 50 mg Q4H PRN PO 05/27/18 06:45 06/26/18 06:44 06/01/18 09:21 50 MG Sertraline HCl (Zoloft Tab) 37.5 mg HS PO 05/27/18 21:00 06/26/18 20:59 05/31/18 20:58 37.5 MG Morphine Sulfate (MoRPHine SULFATE INJ) 4 mg Q4H PRN IV 05/28/18 12:45 06/11/18 12:44 05/31/18 22:29 4 MG Insulin Aspart (novoLOG ASPART) SLIDING SCALE If C... ACHS SC 05/29/18 12:45 06/28/18 12:44 06/01/18 09:00 7 UNITS Warfarin Sodium (Coumadin Tab) 3 mg DAILY@16 PO 05/29/18 16:00 06/28/18 15:59 05/31/18 16:16 3 MG Heparin Sodium (Porcine) (Heparin Iv Bolus) 2,000 unit TODAY@0600 IV 06/02/18 06:00 06/02/18 18:00 Heparin Sodium (Porcine) (Heparin Iv Bolus) 500 unit Q1H IV 06/02/18 06:00 06/02/18 18:00 Epoetin Jean-Pierre (Procrit Inj) 10,000 units TODAY@0600 IV. 06/02/18 06:00 06/02/18 18:00 Objective Vital Signs Date Time Temp Pulse Resp B/P (MAP) Pulse Ox O2 Delivery O2 Flow Rate FiO2 06/01/18 08:00 Room Air 06/01/18 07:02 37.1 83 18 139/80 (99) 94 Room Air 05/31/18 23:40 Room Air 05/31/18 23:19 37.1 86 15 134/63 (86) 91 Room Air 05/31/18 20:57 91 137/83 (101) 05/31/18 16:15 Room Air 05/31/18 15:27 36.8 83 18 108/50 (69) 98 Room Air Physical Exam General Appearance: WD/WN, no apparent distress Eyes: sclerae normal ENT: hearing grossly normal Neck: supple, no JVD, trachea midline Respiratory/Chest: lungs clear, normal breath sounds, no respiratory distress, no accessory muscle use, + pertinent finding (L chest permacath inplace with no drainage or erythema) Cardiovascular: regular rate, rhythm, + systolic murmur Abdomen: normal bowel sounds, non tender, soft Extremities: + pertinent finding (wound vac placed to R AC region; weak thrill/ bruit) Neurologic/Psychiatric: alert, oriented x 3 Skin: normal color, warm/dry Laboratory Results Last 24 Hours Test 05/31/18 17:00 05/31/18 20:33 06/01/18 06:19 06/01/18 08:05 Bedside Glucose 107 mg/dl 149 mg/dl 170 mg/dl White Blood Count 9.01 K/uL Red Blood Count 3.09 M/uL Hemoglobin 9.2 g/dL Hematocrit 29.1 % Mean Corpuscular Volume 94.2 fL Mean Corpuscular Hemoglobin 29.8 pg Mean Corpuscular Hemoglobin Concent 31.6 g/dl RDW Standard Deviation 48.7 fL RDW Coefficient of Variation 14.4 % Platelet Count 223 K/uL Mean Platelet Volume 10.3 fL Prothrombin Time 14.1 SECONDS Prothromb Time International Ratio 1.4 Sodium Level 130 mmol/L Potassium Level 4.7 mmol/L Chloride Level 96 mmol/L Carbon Dioxide Level 23 mmol/L Anion Gap 11.0 mmol/L Blood Urea Nitrogen 40 mg/dl Creatinine 6.13 mg/dl Est Creatinine Clear Calc Drug Dose 11.9 ml/min Estimated GFR () 8.0 Estimated GFR (Non- 6.9 BUN/Creatinine Ratio 6.5 Random Glucose 147 mg/dl Calcium Level 8.7 mg/dl Chemistry Specimen Hemolysis Test 06/01/18 11:45 Bedside Glucose 193 mg/dl Assessment and Plan 57 y/o female with a history of CAD, HTN, HLD, h/o CVA, a-fib, DM II, ESRD on HD , right arm steal syndrome, hypothyroidism, recurrent UTI, and GERD who presents w/wound dehiscence and infection of right AV fistula. Wound Dehiscence/Infection of R AV Fistula S/P Debridement/Wound Vac: IMPROVING - MRSA + - Continue Vancomycin with HD for total 4-6 weeks - will need set up at her dialysis center and trough monitoring -- Weekly CBC and CMP with trough - ID and wound following - will need outpatient F/U - Vascular following - appreciate assistance - continue wound vac Paroxysmal Atrial Fibrillation/CAD/HTN/HLD and H/O CVA: - Bumex 2 mg daily; Lopressor 25 mg BID; Lipitor 40 mg daily - Warfarin 3 mg daily - INR 1.4 and will continue to trend ESRD on HD: TTS - Patient has weak thrill/bruit of fistula and permacath is malfunctioning - will plan for dialysis on 06/02 inhospital to confirm ability to utilize fistula vs permacath exchange - was able to utilize fistula on last dialysis session - Renagel 800 mg BID - Nephrology following - discussed with Dr. Brandt today about the fistula - plan for dialysis tomorrow T2DM: A1c 6.3 - Continue SSI - Lantus was D/C'd during October admission Hypothyroidism: STABLE - Synthroid 225 mcg daily Depression: - Zoloft 37.5 mg daily DVT Prophylaxis: Warfarin Code Status: FULL RESUSCITATION Disposition: - Awaiting confirmation of wound vac at [facility] - possible D/C Friday Continued [facility] stay due to: other (vascular access for dialysis concern/wound vac attainment) Discharge planning: half-way facility
[2018-06-01 15:46] VITALS: BP 104/66; PULSE 78; TEMP 36.8; O2SAT 96
[2018-06-01] MEDS: WARFARIN SOD 3 MG TAB PO SCH (16:08)
[2018-06-01] MEDS: SERTRALINE HCL 50 MG TAB PO SCH (21:08)
[2018-06-01] MEDS: SENNA 8.6 MG TAB PO SCH (21:09)
[2018-06-01] MEDS: PRAMIPEXOLE DIHYDROCHLORIDE 0.25MG TAB PO SCH (21:11)
[2018-06-01 21:12] VITALS: BP 124/66; PULSE 85
[2018-06-01 23:10] VITALS: BP 130/77; PULSE 75; TEMP 36.9; O2SAT 95
[2018-06-02] VITALS (24 sets, daily range): BP systolic 98–152; BP diastolic 29–82; PULSE 70–90; TEMP 36.6–37.1; O2SAT 96–98
[2018-06-02] MEDS: LEVOTHYROXINE 50 MCG TAB PO SCH (05:46)
[2018-06-02] MEDS ORDERED: EPOETIN ALFA 10,000 UNITS/ML VIAL IV. SCH (06:00)
[2018-06-02] MEDS ORDERED: HEPARIN SOD (PORCINE) 1000 UNIT/ML 10 ML VIAL IV SCH (06:00)
[2018-06-02] MEDS: LEVOTHYROXINE 200 MCG TAB PO SCH (06:03)
[2018-06-02 07:28] LABS: HEMATOCRIT 27.7 % (37-47); HEMOGLOBIN 8.7 g/dL (12.0-16.0); MEAN CELL VOLUME 93.9 fL (80-100); MEAN CORPUSCULAR HEMOGLOBIN 29.5 pg (25-34); MEAN CORPUSCULAR HGB CONC 31.4 g/dl (32-36); MEAN PLATELET VOLUME 10.7 fL (7.4-10.4); PLATELET COUNT 239 K/uL (130-400); RED CELL DISTRIBUTION WIDTH CV 14.6 % (11.5-14.5); RED CELL DISTRIBUTION WIDTH SD 49.1 fL (36.4-46.3); WHITE BLOOD COUNT 9.29 K/uL (4.8-10.8)
[2018-06-02 08:07] LABS: CALCIUM 8.8 mg/dl (8.5-10.1); CREATININE 7.49 mg/dl (0.60-1.20); POTASSIUM 4.4 mmol/L (3.5-5.1)
[2018-06-02] MEDS: BUMETANIDE 1 MG TAB PO SCH (08:11)
[2018-06-02] MEDS: PANTOprazole SOD 40 MG TAB PO SCH (08:11)
[2018-06-02] MEDS: SEVELAMER HYDROCH 800 MG TAB PO SCH ×2 (08:11→18:27)
[2018-06-02] MEDS: DOCUSATE SODIUM 100 MG CAP PO SCH ×2 (08:12→21:23)
[2018-06-02] MEDS: CALCIUM CARBONATE 500 MG CHEWABLE PO SCH ×3 (08:12→21:24)
[2018-06-02] MEDS: ATORVASTATIN 40 MG TAB PO SCH (08:12)
[2018-06-02] MEDS: INSULIN ASPART 100 UNITS/ML 3 ML PEN SC SCH ×4 (08:29→21:28)
[2018-06-02] MEDS: HEPARIN SOD (PORCINE) 1000 UNIT/ML 10 ML VIAL IV SCH ×9 (09:00→14:00)
--- NOTE | 2018-06-02 09:10 | Nephrology Progress Note ---
Nephrology Progress Note Date of Service Jun 02, 2018. Chief Complaint Follow-up for end-stage renal disease on hemodialysis. Edwige Wanjohn was seen examined in room this morning. Overall she has been feeling well, denies any symptoms. Blood pressure stable. Volume status acceptable. Review of Systems A complete review of systems was performed. Pertinent positives are noted above. All other systems are negative. Vital Signs Last 8 Hrs Date Time Temp Pulse Resp B/P (MAP) Pulse Ox O2 Delivery O2 Flow Rate FiO2 06/02/18 07:45 36.6 90 17 107/62 (77) 96 Room Air Last Recorded Weight Weight (Kilograms): 111.100 Physical Exam GENERAL: Middle-aged female, morbidly obese, not in any distress. NECK: Supple, no JVD. RESPIRATORY: Normal breathing efforts, no accessory muscle use, clear to auscultation bilaterally, no wheezes or rales. CARDIOVASCULAR: S1, S2 normal, rate rhythm regular. EXTREMITY: No lower extremity edema NEURO: speech fluent. PSYCHIATRY: Normal mood and judgment Social History Drug Use: none Occupation: disabled Laboratory Results Past 24 Hours 06/02/18 06:31 06/02/18 06:31 Test 06/01/18 11:45 06/01/18 17:08 06/01/18 21:02 06/02/18 06:31 Bedside Glucose 193 mg/dl (70-90) 105 mg/dl (70-90) 110 mg/dl (70-90) Red Blood Count 2.95 M/uL (4.2-5.4) Mean Corpuscular Volume 93.9 fL (80-100) Mean Corpuscular Hemoglobin 29.5 pg (25-34) Mean Corpuscular Hemoglobin Concent 31.4 g/dl (32-36) RDW Standard Deviation 49.1 fL (36.4-46.3) RDW Coefficient of Variation 14.6 % (11.5-14.5) Mean Platelet Volume 10.7 fL (7.4-10.4) Anion Gap 11.0 mmol/L (3-11) Est Creatinine Clear Calc Drug Dose 9.7 ml/min Estimated GFR () 6.3 Estimated GFR (Non- 5.4 BUN/Creatinine Ratio 6.7 (10-20) Calcium Level 8.8 mg/dl (8.5-10.1) Test 06/02/18 07:47 Bedside Glucose 160 mg/dl (70-90) Allergies Coded Allergies: Oxycodone (Verified Allergy, Intermediate, HIVES,RASH, 05/08/18) PER [facility] Sulfa Antibiotics (Verified Allergy, Intermediate, HIVES,RASH, 05/08/18) PER [facility] Cephalexin (Verified Allergy, Mild, HIVES, 05/08/18) Penicillins (Verified Allergy, Mild, RASH, 05/28/18) Itchiness Hydrochlorothiazide w/Triamterene (Verified Allergy, Unknown, UNKNOWN, ) Sulfonylureas (Verified Allergy, Unknown, UNKNOWN, 05/08/18) Uncoded Allergies: CARBONIC (Allergy, Unknown, UNKNOWN, 10/24/17) CRBONIC ANHYDRASE INHIBITORS Medications Current Inpatient Medications Medications (Trade) Dose Ordered Sig/Kimmie Route Start Time Stop Time Status Last Admin Dose Admin Acetaminophen (Tylenol Tab) 650 mg Q4H PRN PO 05/26/18 23:00 06/25/18 22:59 05/31/18 08:11 650 MG Ondansetron HCl (Zofran Inj) 4 mg Q6H PRN IV 05/26/18 23:00 06/25/18 22:59 Glucose (Glucose 40% Gel) 15-30 GRAMS 15 GRAMS... UD PRN PO 05/26/18 23:00 06/25/18 22:59 Glucose (Glucose Chew Tab) 4-8 Tablets 4 Tabl... UD PRN PO 05/26/18 23:00 06/25/18 22:59 Dextrose (Dextrose 50% 50ML Syringe) 25-50ML 25ML FOR ... UD PRN IV 05/26/18 23:00 06/25/18 22:59 Glucagon (Glucagon Inj) 1 mg UD PRN SQ 05/26/18 23:00 06/25/18 22:59 Carbohydrates (Carbohydrates For Hypoglycemia) 15-30 GRAMS 15 grams if BSG 54-69... UD PRN PO 05/26/18 23:00 06/25/18 22:59 Atorvastatin Calcium (Lipitor Tab) 40 mg DAILY PO 05/27/18 09:00 06/26/18 08:59 06/01/18 08:57 40 MG Bisacodyl (Dulcolax Tab) 5 mg DAILY PRN PO 05/26/18 23:00 06/25/18 22:59 Bumetanide (Bumex Tab) 2 mg DAILY PO 05/27/18 09:00 06/26/18 08:59 06/01/18 08:56 2 MG Calcium Carbonate (Tums Chew Tab) 2,000 mg TID PO 05/27/18 09:00 06/26/18 08:59 06/01/18 21:11 2,000 MG Docusate Sodium (coLACE CAP) 100 mg BID PO 05/27/18 09:00 06/26/18 08:59 06/01/18 21:11 100 MG Levothyroxine Sodium (Synthroid Tab) 50 mcg DAILYBB PO 05/27/18 06:00 06/26/18 05:59 06/02/18 05:46 50 MCG Levothyroxine Sodium (Synthroid Tab) 200 mcg DAILYBB PO 05/27/18 06:00 06/26/18 05:59 06/02/18 06:03 200 MCG Metoprolol Tartrate (Lopressor Tab) 25 mg BID PO 05/27/18 09:00 06/26/18 08:59 06/01/18 21:11 25 MG Pantoprazole Sodium (Protonix Tab) 40 mg DAILY PO 05/27/18 09:00 06/26/18 08:59 06/01/18 08:56 40 MG Pramipexole Dihydrochloride (miraPEX TAB) 0.25 mg HS PO 05/27/18 21:00 06/26/18 20:59 06/01/18 21:11 0.25 MG Senna (Senokot Tab) 8.6 mg HS PO 05/27/18 21:00 06/26/18 20:59 06/01/18 21:09 8.6 MG Sevelamer HCl (Renagel Tab) 800 mg BIDM PO 05/27/18 08:30 06/26/18 08:29 06/01/18 18:03 800 MG Vancomycin HCl (Consult) 1 ea UD PRN N/A 05/26/18 23:00 06/25/18 22:59 Tramadol HCl (Ultram Tab) 50 mg Q4H PRN PO 05/27/18 06:45 06/26/18 06:44 06/01/18 09:21 50 MG Sertraline HCl (Zoloft Tab) 37.5 mg HS PO 05/27/18 21:00 06/26/18 20:59 06/01/18 21:08 37.5 MG Morphine Sulfate (MoRPHine SULFATE INJ) 4 mg Q4H PRN IV 05/28/18 12:45 06/11/18 12:44 05/31/18 22:29 4 MG Insulin Aspart (novoLOG ASPART) SLIDING SCALE If C... ACHS SC 05/29/18 12:45 06/28/18 12:44 06/01/18 18:06 16 UNITS Warfarin Sodium (Coumadin Tab) 3 mg DAILY@16 PO 05/29/18 16:00 06/28/18 15:59 06/01/18 16:08 3 MG Heparin Sodium (Porcine) (Heparin Iv Bolus) 2,000 unit TODAY@0600 IV 06/02/18 06:00 06/02/18 18:00 Heparin Sodium (Porcine) (Heparin Iv Bolus) 500 unit Q1H IV 06/02/18 06:00 06/02/18 18:00 Epoetin Jean-Pierre (Procrit Inj) 10,000 units TODAY@0600 IV. 06/02/18 06:00 06/02/18 18:00 Impression (1) End-stage renal disease on hemodialysis (2) AV fistula infection (3) Dialysis AV fistula malfunction (4) Anemia (5) Secondary hyperparathyroidism of renal origin (6) Hypertension Kortney is a 57-year-old female with morbid obesity, diabetes mellitus II, hypertension, coronary artery disease, history of CVA, dementia, atrial fibrillation, hypothyroidism and ESRD. She is on TTS HD. She was admitted with dehiscence of right upper extremity wound. She is POD#2 s/p debridement and wound vac placement. Recommendations -- Volume status and electrolyte balance are acceptable. Due for dialysis this morning. If vascular accesses works well for dialysis, after dialysis she can be discharged otherwise will need to be evaluated by vascular surgery again. -- EPO will be provided with HD -- Sevelamer QAC -- BP currently acceptable on home regimen -- When discharge is anticipated patient will need to resume her regular outpatient TTS dialysis schedule in [facility]
[2018-06-02] MEDS ORDERED: TRAM-10 PO (11:21)
[2018-06-02] MEDS ORDERED: Vancomycin IV (11:30)
--- NOTE | 2018-06-02 11:43 | Pharmacy Progress Note ---
Pharmacy Abx Dose Short Note Date of Service Jun 02, 2018. Assessment & Plan Assessment * 57 yo F with infection of AV fistula s/p debridement * Wound culture with MRSA * Anticipated discharge on vancomycin * HD patient - outpatient schedule [facility]. Receiving HD today - scheduled for 4 hour session, which started at 0900 Vancomycin * Patient will clear some vancomycin without HD based on UOP 100-400 mL daily * Level of 23.3 mcg/mL 2 days ago will likely have trended down to ~17 mcg/mL this AM based on patient specific clearance and previous vanco level trend Plan * Vancomycin 750 mg IV x1 after HD today Outpatient/ongoing inpatient recommendation Pre-HD level less than 15 mcg/mL: vancomycin 1000 mg administered post-HD Pre-HD level 15-18 mcg/mL: vancomycin 750 mg administered post-HD Pre-HD level 18-26 mcg/mL: vancomycin 500 mg administered post-HD Pre-HD level greater than 26 mcg/mL: hold vancomycin Pharmacy will continue to follow and will adjust dose/frequency as necessary. Thank you.
--- NOTE | 2018-06-02 11:55 | Discharge Instructions ---
Discharge Instructions Date of Service Jun 02, 2018. Admission Reason for Admission: Wound Dehiscence Discharge Discharge Diagnosis / Problem: Wound Dehiscence and AV Fistula Infection Discharge Goals Goal(s): Decrease discomfort, Improve function, Increase independence Activity Recommendations Activity Level: Assistance Required . Additional Information Patient informed of condition: Yes Advance Directives: Yes DNR: No Level of Care: Skilled Communicable Disease: Yes (MRSA) Prognosis: Stable Lieberman Catheter: No Instructions / Follow-Up Instructions / Follow-Up 57 y/o female with a history of CAD, HTN, HLD, h/o CVA, a-fib, DM II, ESRD on HD , right arm steal syndrome, hypothyroidism, recurrent UTI, and GERD who presents w/wound dehiscence and infection of right AV fistula. Wound Dehiscence/Infection of R AV Fistula S/P Debridement/Wound Vac: IMPROVING - MRSA + - Continue Vancomycin with HD for total 4-6 weeks (four weeks will be June 24, 2018 and will need re-eval by wound care/infectious disease to determine need for longer treatment) - will need set up at her dialysis center and trough monitoring -- Weekly CBC and CMP with trough - Vancomycin will be as follows with pre-dialysis troughs and administered after dialysis on days she has dialysis - written prescription will be sent Pre-HD level less than 15 mcg/mL: vancomycin 1000 mg administered post-HD Pre-HD level 15-18 mcg/mL: vancomycin 750 mg administered post-HD Pre-HD level 18-26 mcg/mL: vancomycin 500 mg administered post-HD Pre-HD level greater than 26 mcg/mL: hold vancomycin - Recommend outpatient Vascular F/U with Dr. Meza and Infectious Disease - Dr. Tatum - Maintain wound vac - last adjustment/intervention on 06/01 as follows: WOUND IRRIGATED WITH NSS USING 35 CC SYRINGE AND A BLUNT TIP CANNULA. ADAPTIC USED CONTACT LAYER, BLACK FOAM, PRESSURE AT 100 MM HG. PT TOLERATED WELL. WOUND SHOWING INCREASED GRANULATION TISSUE. NEXT CHANGE WED 06/03/18. Paroxysmal Atrial Fibrillation/CAD/HTN/HLD and H/O CVA: - Bumex 2 mg daily; Lopressor 25 mg BID; Lipitor 40 mg daily - Warfarin 3 mg daily - INR 1.4 and will need to be monitored to get to therapeutic range - please adjust dosing as necessary ESRD on HD: TTS - Patient has weak thrill/bruit of fistula and permacath is malfunctioning - have been successful x 2 to utilize fistula - Renagel 800 mg BID - Her Bicarb was held during admission as she was more alkalemic - this can be discussed with her normal sausage mixer for continuation vs discontinuation T2DM: A1c 6.3 - Our records have different dosing for her insulin regimen. Recommend utilizing her normal regimen at [place] and adjusted based on sugar monitoring - Her BSGs have ranged from 100-300 with her long-acting held do to procedures Hypothyroidism: STABLE - Synthroid 225 mcg daily Depression: - Zoloft 37.5 mg daily DVT Prophylaxis: Warfarin Code Status: FULL RESUSCITATION Disposition: - Will need Vascular, Wound Care, Infectious Disease F/U in next 1-2 weeks Current Hospital Diet Patient's current hospital diet: Diabetes Type 2 Diet, Renal Diet, AHA Diet ( Heart Healthy) Discharge Diet Recommended Diet: Diabetes Type 2 Diet Fluid Restriction: 1500 ml (6 cups) Procedures Procedures Performed: Right Arm Debridement with Application of Wound Vac Pending Studies Studies pending at discharge: no Laboratory Results Hemoglobin A1c Test 05/27/18 07:54 Range/Units Estimated Average Glucose 134 mg/dl Hemoglobin A1c 6.3 H 4.5-5.6 % Medical Emergencies . Who to Call and When: Medical Emergencies: If at any time you feel your situation is an emergency, please call 911 immediately. . Non-Emergent Contact Non-Emergency issues call your: Primary Care Provider Call Non-Emergent contact if: you have a fever, your pain is concerning you, you have any medication questions . . "Provider Documentation" section prepared by Opal Alston. . Core Measure Problem Core Measures: None
[2018-06-02] MEDS ORDERED: VANCOMYCIN IV 750 MG in SODIUM CHLORIDE 0.9% 250ML 250 ML IV SCH (13:00)
[2018-06-02] MEDS: METOPROLOL TARTRATE 25 MG TAB PO SCH ×2 (13:47→21:24)
[2018-06-02] MEDS: WARFARIN SOD 3 MG TAB PO SCH (15:43)
[2018-06-02] MEDS: ACETAMINOPHEN 325 MG TAB PO PRN (15:44)
--- NOTE | 2018-06-02 16:11 | Hospitalist Progress Note ---
Hospitalist Progress Note Date of Service Jun 02, 2018. Subjective Pt evaluation today including: conversation w/ patient, conversation w/ family , physical exam, chart review, lab review, review of inpatient medication list Patient seen and evaluated. No acute events overnight. Patient seen during dialysis today. Tolerated dialysis well. Reports some increased pain in the R arm during dialysis and is controlled with pain medications. Rx given for Vancomycin at her dialysis center. She will F/U with [facility] wound and ID on D/C Fistula was able to be accessed today. Plan for Permcath removal tomorrow Updated sister over the phone today. Sister states she was due to have an appointment with a specialist for her fingers due to callus-like lesions/ blackened areas. Possibly derm? however sister is not sure what specialist. Will see if we can find out who this may be and reschedule Constitutional: No fever, No chills Respiratory: No cough, No shortness of breath Cardiovascular: No chest pain Abdomen: No pain, No nausea, No vomiting, No diarrhea, No constipation Musculoskeletal: + problem reported (R arm pain) Female : No dysuria Heme: No abnormal bleeding/bruising Objective Vital Signs Date Time Temp Pulse Resp B/P (MAP) Pulse Ox O2 Delivery O2 Flow Rate FiO2 06/02/18 15:11 37.0 89 20 152/82 (105) 96 Room Air 06/02/18 13:00 78 102/33 06/02/18 12:45 86 101/33 06/02/18 12:30 73 113/29 06/02/18 12:15 78 111/42 06/02/18 12:14 36.8 78 17 96 Room Air 06/02/18 12:00 72 122/37 06/02/18 11:45 78 129/30 06/02/18 11:30 73 110/30 06/02/18 11:15 82 125/35 06/02/18 11:00 76 123/38 06/02/18 10:45 70 126/43 06/02/18 10:30 88 118/40 06/02/18 10:15 78 137/50 06/02/18 10:00 79 126/68 06/02/18 09:45 78 127/46 06/02/18 09:30 72 101/38 06/02/18 09:20 78 109/39 06/02/18 09:11 78 121/50 06/02/18 08:55 36.8 81 98/39 (58) 06/02/18 08:00 Room Air 06/02/18 07:45 36.6 90 17 107/62 (77) 96 Room Air 06/01/18 23:49 Room Air 06/01/18 23:10 36.9 75 18 130/77 (94) 95 Room Air 06/01/18 21:12 85 124/66 (85) Physical Exam General Appearance: WD/WN, no apparent distress Eyes: sclerae normal ENT: hearing grossly normal Neck: supple, no JVD, trachea midline Respiratory/Chest: lungs clear, normal breath sounds, no respiratory distress, no accessory muscle use Cardiovascular: regular rate, rhythm Abdomen: normal bowel sounds, non tender, soft Extremities: + pertinent finding (wound vac to R arm; did not palpate thrill/ bruit due to active dialysis; 2+ radial/ulnar pulses; hardened nodules on fingers with some areas of necrosis) Neurologic/Psychiatric: alert, oriented x 3 Skin: normal color, warm/dry Laboratory Results Last 24 Hours Test 06/01/18 17:08 06/01/18 21:02 06/02/18 06:31 06/02/18 07:47 Bedside Glucose 105 mg/dl 110 mg/dl 160 mg/dl White Blood Count 9.29 K/uL Red Blood Count 2.95 M/uL Hemoglobin 8.7 g/dL Hematocrit 27.7 % Mean Corpuscular Volume 93.9 fL Mean Corpuscular Hemoglobin 29.5 pg Mean Corpuscular Hemoglobin Concent 31.4 g/dl RDW Standard Deviation 49.1 fL RDW Coefficient of Variation 14.6 % Platelet Count 239 K/uL Mean Platelet Volume 10.7 fL Sodium Level 131 mmol/L Potassium Level 4.4 mmol/L Chloride Level 97 mmol/L Carbon Dioxide Level 23 mmol/L Anion Gap 11.0 mmol/L Blood Urea Nitrogen 50 mg/dl Creatinine 7.49 mg/dl Est Creatinine Clear Calc Drug Dose 9.7 ml/min Estimated GFR () 6.3 Estimated GFR (Non- 5.4 BUN/Creatinine Ratio 6.7 Random Glucose 162 mg/dl Calcium Level 8.8 mg/dl Test 06/02/18 12:14 Bedside Glucose 113 mg/dl Assessment and Plan 57 y/o female with a history of CAD, HTN, HLD, h/o CVA, a-fib, DM II, ESRD on HD , right arm steal syndrome, hypothyroidism, recurrent UTI, and GERD who presents w/wound dehiscence and infection of right AV fistula. Wound Dehiscence/Infection of R AV Fistula S/P Debridement/Wound Vac: IMPROVING - MRSA + - Continue Vancomycin with HD for total 4-6 weeks - 4 week jony is June 24 - Rx sent to dialysis center -- Weekly CBC and CMP with trough - sent dosing instructions based on trough for dialysis center - ID and wound following - will need outpatient F/U - patient will F/U with [facility] wound and ID - Vascular following - appreciate assistance - continue wound vac and plan on Permcath removal tomorrow Paroxysmal Atrial Fibrillation/CAD/HTN/HLD and H/O CVA: STABLE - Bumex 2 mg daily; Lopressor 25 mg BID; Lipitor 40 mg daily - Warfarin 3 mg daily - monitor INR ESRD on HD: TTS - Renagel 800 mg BID - Nephrology following - completed dialysis today T2DM: A1c 6.3 - Continue SSI - there is some discrepancies with our records and sent records - would recommend she continue previous regimen developed at [facility] and adjust as needed based on BSG Hypothyroidism: STABLE - Synthroid 225 mcg daily Depression: - Zoloft 37.5 mg daily DVT Prophylaxis: Warfarin Code Status: FULL RESUSCITATION Disposition: - Plan on Permcath removal tomorrow - Plan for D/C to [facility] hopefully next 1-2 days Continued [facility] stay due to: multiple IV medications needed, other (surgical procedure planned) Discharge planning: senior living facility
[2018-06-02] MEDS: SENNA 8.6 MG TAB PO SCH (21:24)
[2018-06-02] MEDS: PRAMIPEXOLE DIHYDROCHLORIDE 0.25MG TAB PO SCH (21:24)
[2018-06-02] MEDS: SERTRALINE HCL 50 MG TAB PO SCH (21:25)
[2018-06-02] MEDS: TRAMADOL HCL 50 MG TAB PO PRN (23:52)
[2018-06-03] VITALS (14 sets, daily range): BP systolic 95–175; BP diastolic 58–90; PULSE 74–84; TEMP 36.5–37.2; O2SAT 95–99
[2018-06-03] MEDS ORDERED: NURSING VERBAL MED ORDER ONE ×2 (01:15→17:00)
[2018-06-03] MEDS: INSULIN ASPART 100 UNITS/ML 3 ML PEN SC SCH ×5 (06:00→21:06)
[2018-06-03] MEDS: LEVOTHYROXINE 50 MCG TAB PO SCH (06:06)
[2018-06-03] MEDS: LEVOTHYROXINE 200 MCG TAB PO SCH (06:06)
[2018-06-03] MEDS: SEVELAMER HYDROCH 800 MG TAB PO SCH ×2 (07:43→16:44)
[2018-06-03] MEDS: ATORVASTATIN 40 MG TAB PO SCH (07:44)
[2018-06-03] MEDS: METOPROLOL TARTRATE 25 MG TAB PO SCH ×2 (07:44→21:01)
[2018-06-03] MEDS: DOCUSATE SODIUM 100 MG CAP PO SCH ×2 (07:44→21:00)
[2018-06-03] MEDS: PANTOprazole SOD 40 MG TAB PO SCH (07:44)
[2018-06-03 07:45] LABS: HEMATOCRIT 28.9 % (37-47); HEMOGLOBIN 9.2 g/dL (12.0-16.0); MEAN CELL VOLUME 93.8 fL (80-100); MEAN CORPUSCULAR HEMOGLOBIN 29.9 pg (25-34); MEAN CORPUSCULAR HGB CONC 31.8 g/dl (32-36); MEAN PLATELET VOLUME 10.4 fL (7.4-10.4); PLATELET COUNT 213 K/uL (130-400); RED CELL DISTRIBUTION WIDTH CV 14.7 % (11.5-14.5); RED CELL DISTRIBUTION WIDTH SD 49.7 fL (36.4-46.3); WHITE BLOOD COUNT 7.52 K/uL (4.8-10.8)
[2018-06-03] MEDS: BUMETANIDE 1 MG TAB PO SCH (07:45)
[2018-06-03] MEDS: CALCIUM CARBONATE 500 MG CHEWABLE PO SCH ×3 (07:45→21:01)
[2018-06-03 07:53] LABS: INR 1.7 (0.9-1.1)
[2018-06-03 08:10] LABS: CALCIUM 8.3 mg/dl (8.5-10.1); CREATININE 4.36 mg/dl (0.60-1.20); POTASSIUM 4.1 mmol/L (3.5-5.1)
--- NOTE | 2018-06-03 09:24 | Nephrology Progress Note ---
Nephrology Progress Note Date of Service Jun 03, 2018. Chief Complaint Follow-up for end-stage renal disease on hemodialysis. Edwige Sheets was seen and examined in her room this morning. Overall she has been feeling well, denies any symptoms. Blood pressure stable. Volume status acceptable. had HD yesterday via AVF , had 2 L UF Review of Systems A complete review of systems was performed. Pertinent positives are noted above. All other systems are negative. Vital Signs Last 8 Hrs Date Time Temp Pulse Resp B/P (MAP) Pulse Ox O2 Delivery O2 Flow Rate FiO2 06/03/18 07:40 36.8 84 18 164/71 (102) 95 Room Air Last Recorded Weight Weight (Kilograms): 111.400 Physical Exam GENERAL: Middle-aged female, morbidly obese, not in any distress. NECK: Supple, no JVD. RESPIRATORY: Normal breathing efforts, no accessory muscle use, clear to auscultation bilaterally, no wheezes or rales. CARDIOVASCULAR: S1, S2 normal, rate rhythm regular. EXTREMITY: No lower extremity edema NEURO: speech fluent. PSYCHIATRY: Normal mood and judgment Social History Drug Use: none Occupation: disabled Laboratory Results Past 24 Hours 06/03/18 07:20 06/03/18 07:20 Test 06/02/18 12:14 06/02/18 17:01 06/02/18 20:51 06/03/18 05:51 Bedside Glucose 113 mg/dl (70-90) 171 mg/dl (70-90) 236 mg/dl (70-90) 116 mg/dl (70-90) Test 06/03/18 07:20 Red Blood Count 3.08 M/uL (4.2-5.4) Mean Corpuscular Volume 93.8 fL (80-100) Mean Corpuscular Hemoglobin 29.9 pg (25-34) Mean Corpuscular Hemoglobin Concent 31.8 g/dl (32-36) RDW Standard Deviation 49.7 fL (36.4-46.3) RDW Coefficient of Variation 14.7 % (11.5-14.5) Mean Platelet Volume 10.4 fL (7.4-10.4) Prothrombin Time 18.1 SECONDS (9.0-12.0) Prothromb Time International Ratio 1.7 (0.9-1.1) Anion Gap 7.0 mmol/L (3-11) Est Creatinine Clear Calc Drug Dose 16.7 ml/min Estimated GFR () 12.0 Estimated GFR (Non- 10.4 BUN/Creatinine Ratio 4.5 (10-20) Calcium Level 8.3 mg/dl (8.5-10.1) Allergies Coded Allergies: Oxycodone (Verified Allergy, Intermediate, HIVES,RASH, 05/08/18) PER [facility] Sulfa Antibiotics (Verified Allergy, Intermediate, HIVES,RASH, 05/08/18) PER [facility] Cephalexin (Verified Allergy, Mild, HIVES, 05/08/18) Penicillins (Verified Allergy, Mild, RASH, 05/28/18) Itchiness Hydrochlorothiazide w/Triamterene (Verified Allergy, Unknown, UNKNOWN, ) Sulfonylureas (Verified Allergy, Unknown, UNKNOWN, 05/08/18) Uncoded Allergies: CARBONIC (Allergy, Unknown, UNKNOWN, 10/24/17) CRBONIC ANHYDRASE INHIBITORS Medications Current Inpatient Medications Medications (Trade) Dose Ordered Sig/Kimmie Route Start Time Stop Time Status Last Admin Dose Admin Acetaminophen (Tylenol Tab) 650 mg Q4H PRN PO 05/26/18 23:00 06/25/18 22:59 06/02/18 15:44 650 MG Ondansetron HCl (Zofran Inj) 4 mg Q6H PRN IV 05/26/18 23:00 06/25/18 22:59 Glucose (Glucose 40% Gel) 15-30 GRAMS 15 GRAMS... UD PRN PO 05/26/18 23:00 06/25/18 22:59 Glucose (Glucose Chew Tab) 4-8 Tablets 4 Tabl... UD PRN PO 05/26/18 23:00 06/25/18 22:59 Dextrose (Dextrose 50% 50ML Syringe) 25-50ML 25ML FOR ... UD PRN IV 05/26/18 23:00 06/25/18 22:59 Glucagon (Glucagon Inj) 1 mg UD PRN SQ 05/26/18 23:00 06/25/18 22:59 Carbohydrates (Carbohydrates For Hypoglycemia) 15-30 GRAMS 15 grams if BSG 54-69... UD PRN PO 05/26/18 23:00 06/25/18 22:59 Atorvastatin Calcium (Lipitor Tab) 40 mg DAILY PO 05/27/18 09:00 06/26/18 08:59 06/03/18 07:44 40 MG Bisacodyl (Dulcolax Tab) 5 mg DAILY PRN PO 05/26/18 23:00 06/25/18 22:59 Bumetanide (Bumex Tab) 2 mg DAILY PO 05/27/18 09:00 06/26/18 08:59 06/03/18 07:45 2 MG Calcium Carbonate (Tums Chew Tab) 2,000 mg TID PO 05/27/18 09:00 06/26/18 08:59 06/03/18 07:45 2,000 MG Docusate Sodium (coLACE CAP) 100 mg BID PO 05/27/18 09:00 06/26/18 08:59 06/03/18 07:44 100 MG Levothyroxine Sodium (Synthroid Tab) 50 mcg DAILYBB PO 05/27/18 06:00 06/26/18 05:59 06/03/18 06:06 50 MCG Levothyroxine Sodium (Synthroid Tab) 200 mcg DAILYBB PO 05/27/18 06:00 06/26/18 05:59 06/03/18 06:06 200 MCG Metoprolol Tartrate (Lopressor Tab) 25 mg BID PO 05/27/18 09:00 06/26/18 08:59 06/03/18 07:44 25 MG Pantoprazole Sodium (Protonix Tab) 40 mg DAILY PO 05/27/18 09:00 06/26/18 08:59 06/03/18 07:44 40 MG Pramipexole Dihydrochloride (miraPEX TAB) 0.25 mg HS PO 05/27/18 21:00 06/26/18 20:59 06/02/18 21:24 0.25 MG Senna (Senokot Tab) 8.6 mg HS PO 05/27/18 21:00 06/26/18 20:59 06/02/18 21:24 8.6 MG Sevelamer HCl (Renagel Tab) 800 mg BIDM PO 05/27/18 08:30 06/26/18 08:29 06/02/18 18:27 800 MG Vancomycin HCl (Consult) 1 ea UD PRN N/A 05/26/18 23:00 06/25/18 22:59 Tramadol HCl (Ultram Tab) 50 mg Q4H PRN PO 05/27/18 06:45 06/26/18 06:44 06/02/18 23:52 50 MG Sertraline HCl (Zoloft Tab) 37.5 mg HS PO 05/27/18 21:00 06/26/18 20:59 06/02/18 21:25 37.5 MG Morphine Sulfate (MoRPHine SULFATE INJ) 4 mg Q4H PRN IV 05/28/18 12:45 06/11/18 12:44 05/31/18 22:29 4 MG Warfarin Sodium (Coumadin Tab) 3 mg DAILY@16 PO 05/29/18 16:00 06/28/18 15:59 06/02/18 15:43 3 MG Insulin Aspart (novoLOG ASPART) SLIDING SCALE If C... Q6 SC 06/03/18 06:00 07/03/18 05:59 Impression (1) End-stage renal disease on hemodialysis (2) AV fistula infection (3) Dialysis AV fistula malfunction (4) Anemia (5) Secondary hyperparathyroidism of renal origin (6) Hypertension Kortney is a 57-year-old female with morbid obesity, diabetes mellitus II, hypertension, coronary artery disease, history of CVA, dementia, atrial fibrillation, hypothyroidism and ESRD. She is on TTS HD. She was admitted with dehiscence of right upper extremity wound. She is POD#2 s/p debridement and wound vac placement. Recommendations -- Volume status and electrolyte balance are acceptable. Had dialysis yesterday , AVF was used for cannulation. -- EPO will be provided with HD -- Sevelamer QA -- BP currently acceptable on home regimen -- OK to be discharged, When discharge is anticipated patient will need to resume her regular outpatient TTS dialysis schedule in [facility]
--- NOTE | 2018-06-03 10:53 | Progress Note ---
Progress Note Date of Service Jun 03, 2018. Progress Note Patient for permcath removal today. Her fistula is working well with two needles. I have discussed the risks options and benefits of the procedure with the patient. The patient understands the risks options and benefits and agrees to the procedure. I have examined the patient, reviewed the History & Physical and in the interval since the performance of the History & Physical I have noted the following changes of clinical significance: No changes noted
--- NOTE | 2018-06-03 13:06 | Pre Sedation Assessment ---
Pre Sedation Assessment General Date of Sedation: Jun 03, 2018. Vital Signs Past 12 Hours Date Time Temp Pulse Resp B/P (MAP) Pulse Ox O2 Delivery O2 Flow Rate FiO2 06/03/18 11:50 36.6 74 15 118/61 (80) 97 Room Air 06/03/18 09:00 95 Room Air 06/03/18 07:40 36.8 84 18 164/71 (102) 95 Room Air Review Cardiovascular: regular rate, rhythm Lungs: lungs clear Pre-Sedation Airway Assessment Smoking Status: Former Smoker Hx of Sleep Apnea: No Hx of difficult intubation: No Short Thick Neck: Yes Thyro-mental Distance: > 3 Finger Breadths Oral Cavity: WNL Mallampati Classification: Class II ASA Classification: Class III NPO Status Date of Last Intake of Fluids: Jun 02, 2018 Time of Last Intake of Fluids: 2358 Date of Last Intake of Solids: Jun 02, 2018 Time of Last Intake of Solids: 2358 Notes The planned sedation has been discussed with the patient. Informed Consent was obtained. I have identified the patient, determined the appropriateness of sedation and have assessed the patient immediately prior to the procedure. All medicine(s) and interventions are by my order.
[2018-06-03] MEDS ORDERED: NALOXONE HCL 0.4 MG/1 ML VIAL/CARP ONE (13:13)
[2018-06-03] MEDS ORDERED: FENTANYL CITRATE INJ 50 MCG/1 ML 2 ML VIAL ONE (13:13)
[2018-06-03] MEDS ORDERED: MIDAZOLAM HCL 1 MG/ML 2ML VIAL ONE (13:13)
[2018-06-03] MEDS ORDERED: FLUMAZENIL 0.1 MG/1 ML 10 ML VIAL IV ONE (13:14)
[2018-06-03] MEDS ORDERED: LIDOCAINE HCL 1% 20 ML VIAL ONE (13:26)
--- NOTE | 2018-06-03 13:35 | [facility] Operative Report ---
Operative Report Operative Date Jun 03, 2018. Pre-Operative Diagnosis Functioning fistula Post-Operative Diagnosis same as preop Procedure(s) Performed Removal of permcath Surgeon Dr. Dayton Meza Product Specialist Surgeon(s) Aleshia Carcamo, Vascular Resident Estimated Blood Loss 0 Specimens catheter Drains None Anesthesia Type General Complication(s) none Disposition no Recovery Room / PACU Indications Patient has a functioning fistula. Here for removal of permcath. I have discussed the risks options and benefits of the procedure with the patient. The patient understands the risks options and benefits and agrees to the procedure. Description of Procedure The patient was taken to the angio suite and placed in the supine position. The left side of the neck, chest wall and catheter were prepped and draped in a sterile manner. Local anesthesia was then accomplished. Using sharp and blunt dissection, the cuff of the permcath was freed up from the surrounding fibrous tissue. The permcath and cuff were completely removed. Pressure was then applied and adequate hemostasis was obtained. A sterile dressing was then applied. The patient left the angio suite in good condition and tolerated the procedure well. Dr Meza was present for the entire case I attest to the content of the Intraoperative Record and any orders documented therein. Any exceptions are noted below.
--- NOTE | 2018-06-03 16:31 | Hospitalist Progress Note ---
Hospitalist Progress Note Date of Service Jun 03, 2018. Subjective Pt evaluation today including: conversation w/ patient, physical exam, chart review, lab review, review of inpatient medication list Patient seen and evaluated. No acute events overnight. She is more cheerful today. No arm pain during my examination. Had permcath removed today Due for dialysis tomorrow and Vancomycin. No other complaints. Likely back to [place] tomorrow pending dialysis tolerance Constitutional: No fever, No chills Respiratory: No cough, No shortness of breath Cardiovascular: No chest pain Abdomen: No pain, No nausea, No vomiting, No diarrhea, No constipation Musculoskeletal: No calf pain Female : No dysuria Medications Current Inpatient Medications Medications (Trade) Dose Ordered Sig/Kimmie Route Start Time Stop Time Status Last Admin Dose Admin Acetaminophen (Tylenol Tab) 650 mg Q4H PRN PO 05/26/18 23:00 06/25/18 22:59 06/02/18 15:44 650 MG Ondansetron HCl (Zofran Inj) 4 mg Q6H PRN IV 05/26/18 23:00 06/25/18 22:59 Glucose (Glucose 40% Gel) 15-30 GRAMS 15 GRAMS... UD PRN PO 05/26/18 23:00 06/25/18 22:59 Glucose (Glucose Chew Tab) 4-8 Tablets 4 Tabl... UD PRN PO 05/26/18 23:00 06/25/18 22:59 Dextrose (Dextrose 50% 50ML Syringe) 25-50ML 25ML FOR ... UD PRN IV 05/26/18 23:00 06/25/18 22:59 Glucagon (Glucagon Inj) 1 mg UD PRN SQ 05/26/18 23:00 06/25/18 22:59 Carbohydrates (Carbohydrates For Hypoglycemia) 15-30 GRAMS 15 grams if BSG 54-69... UD PRN PO 05/26/18 23:00 06/25/18 22:59 Atorvastatin Calcium (Lipitor Tab) 40 mg DAILY PO 05/27/18 09:00 06/26/18 08:59 06/03/18 07:44 40 MG Bisacodyl (Dulcolax Tab) 5 mg DAILY PRN PO 05/26/18 23:00 06/25/18 22:59 Bumetanide (Bumex Tab) 2 mg DAILY PO 05/27/18 09:00 06/26/18 08:59 06/03/18 07:45 2 MG Calcium Carbonate (Tums Chew Tab) 2,000 mg TID PO 05/27/18 09:00 06/26/18 08:59 06/03/18 07:45 2,000 MG Docusate Sodium (coLACE CAP) 100 mg BID PO 05/27/18 09:00 06/26/18 08:59 06/03/18 07:44 100 MG Levothyroxine Sodium (Synthroid Tab) 50 mcg DAILYBB PO 05/27/18 06:00 06/26/18 05:59 06/03/18 06:06 50 MCG Levothyroxine Sodium (Synthroid Tab) 200 mcg DAILYBB PO 05/27/18 06:00 06/26/18 05:59 06/03/18 06:06 200 MCG Metoprolol Tartrate (Lopressor Tab) 25 mg BID PO 05/27/18 09:00 06/26/18 08:59 06/03/18 07:44 25 MG Pantoprazole Sodium (Protonix Tab) 40 mg DAILY PO 05/27/18 09:00 06/26/18 08:59 06/03/18 07:44 40 MG Pramipexole Dihydrochloride (miraPEX TAB) 0.25 mg HS PO 05/27/18 21:00 06/26/18 20:59 06/02/18 21:24 0.25 MG Senna (Senokot Tab) 8.6 mg HS PO 05/27/18 21:00 06/26/18 20:59 06/02/18 21:24 8.6 MG Sevelamer HCl (Renagel Tab) 800 mg BIDM PO 05/27/18 08:30 06/26/18 08:29 06/02/18 18:27 800 MG Vancomycin HCl (Consult) 1 ea UD PRN N/A 05/26/18 23:00 06/25/18 22:59 Tramadol HCl (Ultram Tab) 50 mg Q4H PRN PO 05/27/18 06:45 06/26/18 06:44 06/02/18 23:52 50 MG Sertraline HCl (Zoloft Tab) 37.5 mg HS PO 05/27/18 21:00 06/26/18 20:59 7/10/18 21:25 37.5 MG Morphine Sulfate (MoRPHine SULFATE INJ) 4 mg Q4H PRN IV 05/28/18 12:45 06/11/18 12:44 05/31/18 22:29 4 MG Warfarin Sodium (Coumadin Tab) 3 mg DAILY@16 PO 05/29/18 16:00 06/28/18 15:59 06/02/18 15:43 3 MG Insulin Aspart (novoLOG ASPART) SLIDING SCALE If C... Q6 SC 06/03/18 06:00 07/03/18 05:59 Objective Vital Signs Date Time Temp Pulse Resp B/P (MAP) Pulse Ox O2 Delivery O2 Flow Rate FiO2 06/03/18 15:42 37.0 80 20 147/77 (100) 97 Room Air 06/03/18 15:06 36.5 82 20 165/71 (102) 97 Room Air 06/03/18 14:40 37.2 80 16 124/66 (85) 96 Room Air 06/03/18 14:10 37.0 80 18 119/69 (86) 95 Room Air 06/03/18 13:55 37.0 77 16 95/58 (70) 97 Room Air 06/03/18 13:35 74 18 125/68 98 Oxymask 3 06/03/18 13:31 81 18 134/44 98 Oxymask 3 06/03/18 13:26 76 18 137/41 98 Oxymask 3 06/03/18 13:25 37.1 80 18 109/63 (78) 96 Room Air 06/03/18 11:50 36.6 74 15 118/61 (80) 97 Room Air 06/03/18 09:00 95 Room Air 06/03/18 08:00 Room Air 06/03/18 07:40 36.8 84 18 164/71 (102) 95 Room Air 06/02/18 23:56 Room Air 06/02/18 23:27 37.1 74 18 110/65 (80) 98 Room Air 06/02/18 21:29 80 122/74 (90) Physical Exam General Appearance: WD/WN, no apparent distress Eyes: sclerae normal ENT: hearing grossly normal Neck: supple, no JVD, trachea midline Respiratory/Chest: lungs clear, normal breath sounds, no respiratory distress, no accessory muscle use Cardiovascular: regular rate, rhythm Abdomen: normal bowel sounds, non tender, soft Extremities: no pedal edema, no calf tenderness Neurologic/Psychiatric: alert, oriented x 3 Skin: normal color, warm/dry, + pertinent finding (wound vac applied to RUE; pulses 2+; small necrotic/dry circular lesions of fingers (chronic)) Laboratory Results Last 24 Hours Test 06/02/18 17:01 06/02/18 20:51 06/03/18 05:51 06/03/18 07:20 Bedside Glucose 171 mg/dl 236 mg/dl 116 mg/dl White Blood Count 7.52 K/uL Red Blood Count 3.08 M/uL Hemoglobin 9.2 g/dL Hematocrit 28.9 % Mean Corpuscular Volume 93.8 fL Mean Corpuscular Hemoglobin 29.9 pg Mean Corpuscular Hemoglobin Concent 31.8 g/dl RDW Standard Deviation 49.7 fL RDW Coefficient of Variation 14.7 % Platelet Count 213 K/uL Mean Platelet Volume 10.4 fL Prothrombin Time 18.1 SECONDS Prothromb Time International Ratio 1.7 Sodium Level 133 mmol/L Potassium Level 4.1 mmol/L Chloride Level 101 mmol/L Carbon Dioxide Level 25 mmol/L Anion Gap 7.0 mmol/L Blood Urea Nitrogen 20 mg/dl Creatinine 4.36 mg/dl Est Creatinine Clear Calc Drug Dose 16.7 ml/min Estimated GFR () 12.0 Estimated GFR (Non- 10.4 BUN/Creatinine Ratio 4.5 Random Glucose 130 mg/dl Calcium Level 8.3 mg/dl Test 06/03/18 13:06 06/03/18 14:30 Bedside Glucose 153 mg/dl 169 mg/dl Assessment and Plan 57 y/o female with a history of CAD, HTN, HLD, h/o CVA, a-fib, DM II, ESRD on HD , right arm steal syndrome, hypothyroidism, recurrent UTI, and GERD who presents w/wound dehiscence and infection of right AV fistula. Wound Dehiscence/Infection of R AV Fistula S/P Debridement/Wound Vac: IMPROVING - MRSA + - Continue Vancomycin with HD for total 4-6 weeks - 4 week jony is June 24 - Rx sent to dialysis center -- Weekly CBC and CMP with trough - sent dosing instructions based on trough for dialysis center - ID and wound following - will need outpatient F/U - patient will F/U with [facility] wound and ID - Vascular following - appreciate assistance - removed permcath today Paroxysmal Atrial Fibrillation/CAD/HTN/HLD and H/O CVA: STABLE - Bumex 2 mg daily; Lopressor 25 mg BID; Lipitor 40 mg daily - Warfarin 3 mg daily - monitor INR - currently at 1.7 ESRD on HD: TTS - Renagel 800 mg BID - Nephrology following - planning on dialysis tomorrow T2DM: A1c 6.3 - Continue SSI - there is some discrepancies with our records and sent records - would recommend she continue previous regimen developed at [place] and adjust as needed based on BSG Hypothyroidism: STABLE - Synthroid 225 mcg daily Depression: - Zoloft 37.5 mg daily DVT Prophylaxis: Warfarin Code Status: FULL RESUSCITATION Disposition: - Plan for D/C to [place] hopefully tomorrow after dialysis Continued [facility] stay due to: other (monitoring after permcath and dialysis) Discharge planning: longterm facility
[2018-06-03] MEDS: WARFARIN SOD 3 MG TAB PO SCH (16:50)
[2018-06-03] MEDS: SENNA 8.6 MG TAB PO SCH (20:59)
[2018-06-03] MEDS: SERTRALINE HCL 50 MG TAB PO SCH (21:02)
[2018-06-03] MEDS: PRAMIPEXOLE DIHYDROCHLORIDE 0.25MG TAB PO SCH (21:03)
[2018-06-04] VITALS (25 sets, daily range): BP systolic 94–141; BP diastolic 27–79; PULSE 72–88; TEMP 36.5–37.4; O2SAT 93–97
[2018-06-04] MEDS: LEVOTHYROXINE 50 MCG TAB PO SCH (06:03)
[2018-06-04] MEDS: LEVOTHYROXINE 200 MCG TAB PO SCH (06:03)
[2018-06-04 07:00] LABS: CALCIUM 8.7 mg/dl (8.5-10.1); CREATININE 5.59 mg/dl (0.60-1.20); POTASSIUM 4.2 mmol/L (3.5-5.1)
[2018-06-04] MEDS: INSULIN ASPART 100 UNITS/ML 3 ML PEN SC SCH ×4 (08:59→20:38)
[2018-06-04] MEDS: ATORVASTATIN 40 MG TAB PO SCH (09:02)
[2018-06-04] MEDS: PANTOprazole SOD 40 MG TAB PO SCH (09:02)
[2018-06-04] MEDS: DOCUSATE SODIUM 100 MG CAP PO SCH ×2 (09:02→20:15)
[2018-06-04] MEDS: SEVELAMER HYDROCH 800 MG TAB PO SCH ×2 (09:03→18:06)
[2018-06-04] MEDS: CALCIUM CARBONATE 500 MG CHEWABLE PO SCH ×3 (09:04→20:13)
[2018-06-04] MEDS: BUMETANIDE 1 MG TAB PO SCH (09:04)
--- NOTE | 2018-06-04 09:33 | Dialysis Progress Note ---
Hemodialysis Note Date of Service Jun 04, 2018. Chief Complaint Follow-up for end-stage renal disease on hemodialysis. Edwige Sheets was seen and examined during dialysis treatment this morning. She has been tolerating dialysis blood pressure stable. Had tunnel dialysis catheter removed yesterday, currently AV fistula is being used for both arterial and venous needle. Review of Systems A complete review of systems was performed. Pertinent positives are noted above. All other systems are negative. Vital Signs Last 8 Hrs Date Time Temp Pulse Resp B/P (MAP) Pulse Ox O2 Delivery O2 Flow Rate FiO2 06/04/18 07:35 36.7 84 18 101/45 (63) 95 Room Air 06/04/18 03:24 36.6 82 16 140/69 (92) 93 Room Air Last Recorded Weight Weight (Kilograms): 115.900 Physical Exam GENERAL: Middle-aged female, morbidly obese, not in any distress. NECK: Supple, no JVD. RESPIRATORY: Normal breathing efforts, no accessory muscle use, clear to auscultation bilaterally, no wheezes or rales. CARDIOVASCULAR: S1, S2 normal, rate rhythm regular. EXTREMITY: No lower extremity edema NEURO: speech fluent. PSYCHIATRY: Normal mood and judgment Social History Drug Use: none Occupation: disabled Laboratory Results Past 24 Hours 06/04/18 06:01 Test 06/03/18 13:06 06/03/18 14:30 06/03/18 20:36 06/04/18 06:01 Bedside Glucose 153 mg/dl (70-90) 169 mg/dl (70-90) 182 mg/dl (70-90) Anion Gap 9.0 mmol/L (3-11) Est Creatinine Clear Calc Drug Dose 13.3 ml/min Estimated GFR () 8.9 Estimated GFR (Non- 7.7 BUN/Creatinine Ratio 4.8 (10-20) Calcium Level 8.7 mg/dl (8.5-10.1) Random Vancomycin Level 20.6 mcg/ml Test 06/04/18 08:10 Bedside Glucose 158 mg/dl (70-90) Allergies Coded Allergies: Oxycodone (Verified Allergy, Intermediate, HIVES,RASH, 05/08/18) PER [employer] Sulfa Antibiotics (Verified Allergy, Intermediate, HIVES,RASH, 05/08/18) PER [employer] Cephalexin (Verified Allergy, Mild, HIVES, 05/08/18) Penicillins (Verified Allergy, Mild, RASH, 05/28/18) Itchiness Hydrochlorothiazide w/Triamterene (Verified Allergy, Unknown, UNKNOWN, ) Sulfonylureas (Verified Allergy, Unknown, UNKNOWN, 05/08/18) Uncoded Allergies: CARBONIC (Allergy, Unknown, UNKNOWN, 10/24/17) CRBONIC ANHYDRASE INHIBITORS Medications Current Inpatient Medications Medications (Trade) Dose Ordered Sig/Kimmie Route Start Time Stop Time Status Last Admin Dose Admin Acetaminophen (Tylenol Tab) 650 mg Q4H PRN PO 05/26/18 23:00 06/25/18 22:59 06/02/18 15:44 650 MG Ondansetron HCl (Zofran Inj) 4 mg Q6H PRN IV 05/26/18 23:00 06/25/18 22:59 Glucose (Glucose 40% Gel) 15-30 GRAMS 15 GRAMS... UD PRN PO 05/26/18 23:00 06/25/18 22:59 Glucose (Glucose Chew Tab) 4-8 Tablets 4 Tabl... UD PRN PO 05/26/18 23:00 06/25/18 22:59 Dextrose (Dextrose 50% 50ML Syringe) 25-50ML 25ML FOR ... UD PRN IV 05/26/18 23:00 06/25/18 22:59 Glucagon (Glucagon Inj) 1 mg UD PRN SQ 05/26/18 23:00 06/25/18 22:59 Carbohydrates (Carbohydrates For Hypoglycemia) 15-30 GRAMS 15 grams if BSG 54-69... UD PRN PO 05/26/18 23:00 06/25/18 22:59 Atorvastatin Calcium (Lipitor Tab) 40 mg DAILY PO 05/27/18 09:00 06/26/18 08:59 06/04/18 09:02 40 MG Bisacodyl (Dulcolax Tab) 5 mg DAILY PRN PO 05/26/18 23:00 06/25/18 22:59 Bumetanide (Bumex Tab) 2 mg DAILY PO 05/27/18 09:00 06/26/18 08:59 06/04/18 09:04 2 MG Calcium Carbonate (Tums Chew Tab) 2,000 mg TID PO 05/27/18 09:00 06/26/18 08:59 06/04/18 09:04 2,000 MG Docusate Sodium (coLACE CAP) 100 mg BID PO 05/27/18 09:00 06/26/18 08:59 06/04/18 09:02 100 MG Levothyroxine Sodium (Synthroid Tab) 50 mcg DAILYBB PO 05/27/18 06:00 06/26/18 05:59 06/04/18 06:03 50 MCG Levothyroxine Sodium (Synthroid Tab) 200 mcg DAILYBB PO 05/27/18 06:00 06/26/18 05:59 06/04/18 06:03 200 MCG Metoprolol Tartrate (Lopressor Tab) 25 mg BID PO 05/27/18 09:00 06/26/18 08:59 06/03/18 21:01 25 MG Pantoprazole Sodium (Protonix Tab) 40 mg DAILY PO 05/27/18 09:00 06/26/18 08:59 06/04/18 09:02 40 MG Pramipexole Dihydrochloride (miraPEX TAB) 0.25 mg HS PO 05/27/18 21:00 06/26/18 20:59 06/03/18 21:03 0.25 MG Senna (Senokot Tab) 8.6 mg HS PO 05/27/18 21:00 06/26/18 20:59 06/02/18 21:24 8.6 MG Sevelamer HCl (Renagel Tab) 800 mg BIDM PO 05/27/18 08:30 06/26/18 08:29 06/04/18 09:03 800 MG Vancomycin HCl (Consult) 1 ea UD PRN N/A 05/26/18 23:00 06/25/18 22:59 Tramadol HCl (Ultram Tab) 50 mg Q4H PRN PO 05/27/18 06:45 06/26/18 06:44 06/02/18 23:52 50 MG Sertraline HCl (Zoloft Tab) 37.5 mg HS PO 05/27/18 21:00 06/26/18 20:59 06/03/18 21:02 37.5 MG Morphine Sulfate (MoRPHine SULFATE INJ) 4 mg Q4H PRN IV 05/28/18 12:45 7/19/18 12:44 05/31/18 22:29 4 MG Warfarin Sodium (Coumadin Tab) 3 mg DAILY@16 PO 05/29/18 16:00 06/28/18 15:59 06/03/18 16:50 3 MG Insulin Aspart (novoLOG ASPART) SLIDING SCALE If C... ACHS SC 06/03/18 17:15 07/03/18 17:14 06/04/18 08:59 13 UNITS Impression (1) End-stage renal disease on hemodialysis (2) AV fistula infection (3) Dialysis AV fistula malfunction (4) Anemia (5) Secondary hyperparathyroidism of renal origin (6) Hypertension Kortney is a 57-year-old female with morbid obesity, diabetes mellitus II, hypertension, coronary artery disease, history of CVA, dementia, atrial fibrillation, hypothyroidism and ESRD. She is on TTS HD. She was admitted with dehiscence of right upper extremity wound. She is POD#2 s/p debridement and wound vac placement. Recommendations -- currently getting hemodialysis as regular schedule,, AVF is being used for cannulation. -- EPO 4000 units IV during dialysis treatment today. -- Sevelamer QAC -- BP currently acceptable on home regimen -- OK to be discharged, When discharge is anticipated patient will need to resume her regular outpatient TTS dialysis schedule in [facility]
[2018-06-04] MEDS ORDERED: EPOETIN ALFA 4000 UNITS/ML VIAL IV SCH (10:00)
[2018-06-04] MEDS: MoRPHine SULFATE 4 MG/ML 1 ML CARP\\VIAL IV PRN ×3 (11:30→20:06)
[2018-06-04] MEDS: TRAMADOL HCL 50 MG TAB PO PRN (13:50)
[2018-06-04] MEDS: METOPROLOL TARTRATE 25 MG TAB PO SCH ×2 (13:54→20:14)
[2018-06-04] MEDS ORDERED: VANCOMYCIN IV 500 MG in SODIUM CHLORIDE 0.9% 250ML 250 ML IV ONE (14:00)
[2018-06-04] MEDS ORDERED: MoRPHine SULFATE 4 MG/ML 1 ML CARP\\VIAL IV PRN (14:15)
--- NOTE | 2018-06-04 14:29 | Pharmacy Progress Note ---
Pharmacy Abx Dose Short Note Date of Service Jun 04, 2018. Assessment & Plan 06/02/12 Assessment * 57 yo F with infection of AV fistula s/p debridement * Wound culture with MRSA * Anticipated discharge on vancomycin * HD patient - outpatient schedule [facility]. Receiving HD today - scheduled for 4 hour session, which started at 0900 Vancomycin * Patient will clear some vancomycin without HD based on UOP 100-400 mL daily * Level of 23.3 mcg/mL 2 days ago will likely have trended down to ~17 mcg/mL this AM based on patient specific clearance and previous vanco level trend Plan * Vancomycin 750 mg IV x1 after HD today Outpatient/ongoing inpatient recommendation Pre-HD level less than 15 mcg/mL: vancomycin 1000 mg administered post-HD Pre-HD level 15-18 mcg/mL: vancomycin 750 mg administered post-HD Pre-HD level 18-26 mcg/mL: vancomycin 500 mg administered post-HD Pre-HD level greater than 26 mcg/mL: hold vancomycin 06/04/18 * Level of 20.6 mcg/mL this AM before patient received dialysis. Patient received the full 4 hours. * Per previous plan, will give Vancomycin 500mg IV X1 after dialysis today Pharmacy will continue to follow and will adjust dose/frequency as necessary. Thank you.
--- NOTE | 2018-06-04 16:11 | Hospitalist Progress Note ---
Hospitalist Progress Note Date of Service Jun 04, 2018. (Opal Alston PA-C) Subjective Pt evaluation today including: conversation w/ patient, physical exam, chart review, lab review, review of inpatient medication list Patient seen and evaluated. No acute events. Tolerated dialysis today. Transportation cannot transport today and will pick her up tomorrow. Rx sent the other day for Vancomycin with her dialysis sessions. She will follow with wound care and ID through [facility] No other complaints at this time. Did require IV Morphine during dialysis. May need to consider pre-treatment with her home pain medications prior to dialysis. Constitutional: No fever, No chills Cardiovascular: No chest pain Abdomen: No pain, No nausea, No vomiting, No diarrhea, No constipation Musculoskeletal: + problem reported (intermittent R arm pain ) Female : No dysuria Heme: No abnormal bleeding/bruising (Opal Alston PA-C) Medications Current Inpatient Medications Medications (Trade) Dose Ordered Sig/Kimmie Route Start Time Stop Time Status Last Admin Dose Admin Acetaminophen (Tylenol Tab) 650 mg Q4H PRN PO 05/26/18 23:00 06/25/18 22:59 06/02/18 15:44 650 MG Ondansetron HCl (Zofran Inj) 4 mg Q6H PRN IV 05/26/18 23:00 06/25/18 22:59 Glucose (Glucose 40% Gel) 15-30 GRAMS 15 GRAMS... UD PRN PO 05/26/18 23:00 06/25/18 22:59 Glucose (Glucose Chew Tab) 4-8 Tablets 4 Tabl... UD PRN PO 05/26/18 23:00 06/25/18 22:59 Dextrose (Dextrose 50% 50ML Syringe) 25-50ML 25ML FOR ... UD PRN IV 05/26/18 23:00 06/25/18 22:59 Glucagon (Glucagon Inj) 1 mg UD PRN SQ 05/26/18 23:00 06/25/18 22:59 Carbohydrates (Carbohydrates For Hypoglycemia) 15-30 GRAMS 15 grams if BSG 54-69... UD PRN PO 05/26/18 23:00 06/25/18 22:59 Atorvastatin Calcium (Lipitor Tab) 40 mg DAILY PO 05/27/18 09:00 8/3/18 08:59 06/04/18 09:02 40 MG Bisacodyl (Dulcolax Tab) 5 mg DAILY PRN PO 05/26/18 23:00 06/25/18 22:59 Bumetanide (Bumex Tab) 2 mg DAILY PO 05/27/18 09:00 06/26/18 08:59 06/04/18 09:04 2 MG Calcium Carbonate (Tums Chew Tab) 2,000 mg TID PO 05/27/18 09:00 06/26/18 08:59 06/04/18 14:35 2,000 MG Docusate Sodium (coLACE CAP) 100 mg BID PO 05/27/18 09:00 06/26/18 08:59 06/04/18 09:02 100 MG Levothyroxine Sodium (Synthroid Tab) 50 mcg DAILYBB PO 05/27/18 06:00 06/26/18 05:59 06/04/18 06:03 50 MCG Levothyroxine Sodium (Synthroid Tab) 200 mcg DAILYBB PO 05/27/18 06:00 06/26/18 05:59 06/04/18 06:03 200 MCG Metoprolol Tartrate (Lopressor Tab) 25 mg BID PO 05/27/18 09:00 06/26/18 08:59 06/04/18 13:54 25 MG Pantoprazole Sodium (Protonix Tab) 40 mg DAILY PO 05/27/18 09:00 06/26/18 08:59 06/04/18 09:02 40 MG Pramipexole Dihydrochloride (miraPEX TAB) 0.25 mg HS PO 05/27/18 21:00 06/26/18 20:59 06/03/18 21:03 0.25 MG Senna (Senokot Tab) 8.6 mg HS PO 05/27/18 21:00 06/26/18 20:59 06/02/18 21:24 8.6 MG Sevelamer HCl (Renagel Tab) 800 mg BIDM PO 05/27/18 08:30 06/26/18 08:29 06/04/18 09:03 800 MG Vancomycin HCl (Consult) 1 ea UD PRN N/A 05/26/18 23:00 06/25/18 22:59 Tramadol HCl (Ultram Tab) 50 mg Q4H PRN PO 05/27/18 06:45 06/26/18 06:44 06/04/18 13:50 50 MG Sertraline HCl (Zoloft Tab) 37.5 mg HS PO 05/27/18 21:00 06/26/18 20:59 06/03/18 21:02 37.5 MG Morphine Sulfate (MoRPHine SULFATE INJ) 4 mg Q4H PRN IV 05/28/18 12:45 06/11/18 12:44 06/04/18 14:34 4 MG Warfarin Sodium (Coumadin Tab) 3 mg DAILY@16 PO 05/29/18 16:00 06/28/18 15:59 06/03/18 16:50 3 MG Insulin Aspart (novoLOG ASPART) SLIDING SCALE If C... ACHS SC 06/03/18 17:15 07/03/18 17:14 06/04/18 15:06 10 UNITS Epoetin Jean-Pierre (Procrit Inj) 4,000 units TODAY@1000 IV 06/04/18 10:00 06/04/18 18:00 06/04/18 11:35 4,000 UNITS Vancomycin HCl 500 mg/Sodium Chloride 260 ml @ 125 mls/hr TODAY@1400 ONCE IV 06/04/18 14:00 06/04/18 16:04 06/04/18 14:34 125 MLS/HR Morphine Sulfate (MoRPHine SULFATE INJ) 4 mg ONE PRN IV 06/04/18 14:15 06/18/18 14:14 (Opal Alston, FERNANDA) Objective Vital Signs Date Time Temp Pulse Resp B/P (MAP) Pulse Ox O2 Delivery O2 Flow Rate FiO2 06/04/18 15:45 37.4 79 17 106/67 (80) 97 Room Air 06/04/18 13:53 80 136/71 (92) 06/04/18 13:30 36.7 86 125/52 (76) 06/04/18 13:00 73 107/48 06/04/18 12:45 73 105/43 06/04/18 12:30 72 101/33 06/04/18 12:15 78 110/34 06/04/18 12:00 79 108/44 06/04/18 11:45 82 103/27 06/04/18 11:30 88 110/44 06/04/18 11:15 79 102/36 06/04/18 11:00 81 122/34 06/04/18 10:45 79 115/31 06/04/18 10:30 80 112/30 06/04/18 10:15 76 112/44 06/04/18 10:00 84 114/27 06/04/18 09:45 75 122/55 06/04/18 09:30 76 106/44 06/04/18 09:15 81 113/45 06/04/18 09:04 36.5 84 94/29 (50) 06/04/18 08:30 95 06/04/18 07:35 36.7 84 18 101/45 (63) 95 Room Air 06/04/18 03:24 36.6 82 16 140/69 (92) 93 Room Air 06/04/18 00:40 Room Air 06/03/18 23:05 37.0 81 16 154/71 (98) 97 Room Air 06/03/18 18:46 36.9 75 18 111/69 (83) 96 Room Air 06/03/18 17:44 36.8 80 20 175/90 (118) 99 Room Air 06/03/18 16:47 37.0 80 18 155/83 (107) 95 Room Air (Opal Alston PA-C) Physical Exam General Appearance: WD/WN, no apparent distress Eyes: sclerae normal ENT: hearing grossly normal Neck: supple, no JVD, trachea midline Respiratory/Chest: lungs clear, normal breath sounds, no respiratory distress, no accessory muscle use Cardiovascular: regular rate, rhythm Abdomen: normal bowel sounds, non tender, soft Extremities: no pedal edema, + pertinent finding (wound vac remains in place to RUE; did not palpate for thrill/bruit due to dialysis in session; 2+ radial pulses; unchanged dry small spherical nodules with minimal necrosis on fingers) Neurologic/Psychiatric: alert Skin: normal color, warm/dry (Opal Alston PA-C) Laboratory Results Last 24 Hours Test 06/03/18 20:36 06/04/18 06:01 06/04/18 08:10 06/04/18 12:12 Bedside Glucose 182 mg/dl 158 mg/dl 122 mg/dl Sodium Level 131 mmol/L Potassium Level 4.2 mmol/L Chloride Level 99 mmol/L Carbon Dioxide Level 24 mmol/L Anion Gap 9.0 mmol/L Blood Urea Nitrogen 27 mg/dl Creatinine 5.59 mg/dl Est Creatinine Clear Calc Drug Dose 13.3 ml/min Estimated GFR () 8.9 Estimated GFR (Non- 7.7 BUN/Creatinine Ratio 4.8 Random Glucose 180 mg/dl Calcium Level 8.7 mg/dl Random Vancomycin Level 20.6 mcg/ml (Opal Alston PA-C) Assessment and Plan 57 y/o female with a history of CAD, HTN, HLD, h/o CVA, a-fib, DM II, ESRD on HD , right arm steal syndrome, hypothyroidism, recurrent UTI, and GERD who presents w/wound dehiscence and infection of right AV fistula. Wound Dehiscence/Infection of R AV Fistula S/P Debridement/Wound Vac: IMPROVING - MRSA + - Continue Vancomycin with HD for total 4-6 weeks - 4 week jony is June 24 - Rx sent to dialysis center -- Weekly CBC and CMP with trough - sent dosing instructions based on trough for dialysis center - ID and wound following - patient will F/U with [facility] wound and ID - Vascular followed - appreciate assistance - performed I&D and permcath removal Paroxysmal Atrial Fibrillation/CAD/HTN/HLD and H/O CVA: STABLE - Bumex 2 mg daily; Lopressor 25 mg BID; Lipitor 40 mg daily - Warfarin 3 mg daily - monitor INR - currently at 1.7 ESRD on HD: TTS - Renagel 800 mg BID - Nephrology following - completed dialysis today T2DM: A1c 6.3 - Continue SSI - there is some discrepancies with our records and sent records - would recommend she continue previous regimen developed at [place] and adjust as needed based on BSG Hypothyroidism: STABLE - Synthroid 225 mcg daily Depression: - Zoloft 37.5 mg daily DVT Prophylaxis: Warfarin Code Status: FULL RESUSCITATION Disposition: - Plan for D/C to [facility] hopefully tomorrow as transportation is not available today through [facility] and unaffordable for patient to utilize other agency Continued [facility] stay due to: other (transportation) [facility] (Opal Alston PA-C) Reviewed: Pt Seen/Exam by Me (Ling Boateng MD) History Physician Rn Relief Charge Supervision Note: I interviewed and examined the patient. Discussed with SILVESTRE Alston and agree with findings and plan as documented in the note. Any exceptions or clarifications are listed here: Pt denies problems, anxious to go home and see her grandchildren. Remains afebrile. Hand nad fingers on the right with sores that are healing, pain there is improved. Vitals reviewed NAD, AAOx3 RRR no mgr CTAB no wcr Ext: RUE with AVF with dressing in place and with wound vac at distal portion, cannot visualize any erythema around wound vac, right hand and fingers with multiple 0.5cm eschars on finger tips and dorsum of hand with only minimal surrounding erythema, some tenderness, with loss of partial fingernail on middle finger 57 yo female with ESRD on HD, DMII, HTN,CAD,h/o CVA, obesity with BMI 44.6, PAF on coumadin, depression, and hypothyroidism, here with MRSA-infected wound over AVF. Suspect right hand eschars were septic emboli from infected AVF-now also healing Had perm cath removed yesterday and AVF functioning. -Continue Vanco with dosing as per troughs at HD -f/u with Vascular and Wound care -continue HD after dc as routinely scheduled -restarted on coumadin and following PT/INR -stable for dc today but no transport available-plan for dc tomorrow Documented By: Ling Boateng (Ling Boateng MD)
[2018-06-04] MEDS: WARFARIN SOD 3 MG TAB PO SCH (16:53)
[2018-06-04] MEDS: SENNA 8.6 MG TAB PO SCH (20:14)
[2018-06-04] MEDS: PRAMIPEXOLE DIHYDROCHLORIDE 0.25MG TAB PO SCH (20:15)
[2018-06-04] MEDS: SERTRALINE HCL 50 MG TAB PO SCH (20:15)
[2018-06-05] MEDS: LEVOTHYROXINE 200 MCG TAB PO SCH (06:03)
[2018-06-05] MEDS: LEVOTHYROXINE 50 MCG TAB PO SCH (06:03)
[2018-06-05 07:29] VITALS: BP 95/64; PULSE 77; TEMP 36.9; O2SAT 96
[2018-06-05 07:53] VITALS: O2SAT 96
[2018-06-05] MEDS: INSULIN ASPART 100 UNITS/ML 3 ML PEN SC SCH (09:13)
[2018-06-05] MEDS: PANTOprazole SOD 40 MG TAB PO SCH (09:14)
[2018-06-05] MEDS: CALCIUM CARBONATE 500 MG CHEWABLE PO SCH (09:14)
[2018-06-05] MEDS: SEVELAMER HYDROCH 800 MG TAB PO SCH (09:15)
[2018-06-05] MEDS: DOCUSATE SODIUM 100 MG CAP PO SCH (09:16)
[2018-06-05] MEDS: BUMETANIDE 1 MG TAB PO SCH (09:16)
[2018-06-05] MEDS: ATORVASTATIN 40 MG TAB PO SCH (09:16)
[2018-06-05] MEDS: METOPROLOL TARTRATE 25 MG TAB PO SCH (09:17)
[2018-06-05] MEDS: TRAMADOL HCL 50 MG TAB PO PRN (09:58)
--- NOTE | 2018-06-05 16:44 | Discharge Summary ---
Discharge Summary Date of Service Jun 05, 2018. Discharge Summary Admission Date: May 26, 2018 at 22:27 Discharge Date: Jun 04, 2018 Discharge Disposition: half-way facility Principal Diagnosis: AV Fistula Infection with Wound Dehiscence Problems/Secondary Diagnoses: 1. HLD 2. CVA 3. T2DM 4. CHF, Unknown Type 5. Hypothyroidism 6. HTN 7. GERD 8. Recurrent UTIs 9. Paroxysmal Atrial Fibrillation - on Coumadin 10. CAD 11. Depression 12. RUE Vascular Steal Syndrome 13. Suspect Septic Emboli of Fingers of RUE? 14. ESRD on HD Immunizations: Have You Had Influenza Vaccine: Unknown History of Tetanus Vaccine?: Unknown History of Pneumococcal: Unknown History of Hepatitis B Vaccine: Unknown Procedures: R ELBOW MIN 3 VIEWS ROUTINE FINDINGS: Surgical clips project over the antecubital fossa. Atherosclerosis noted. Apparent soft tissue defect along the medial elbow. The apparent defect may be due to skin folds. Apart from this soft tissue abnormality, no convincing evidence of soft tissue emphysema. No osseous erosion or periosteal reaction. The elbow joint is congruent. Mild degenerative changes of the lateral elbow with osteophytosis at the radial head and lateral epicondyle. No acute fracture or malalignment. No evidence of an elbow joint effusion. IMPRESSION: 1. No acute osseous injury. No radiographic evidence of osteomyelitis. 2. Correlate clinically for possible soft tissue defect at the medial elbow versus skin fold. Consultations: 1. Nephrology 2. Vascular Surgery Medication Reconciliation New Medications: [Vancomycin] () INJ 500-1000 MG IV UD for 48 Days Based on troughs. Paper Rx will be sent with patient Continued Medications: Acetaminophen (Tylenol) 325 Mg Tab 650 MG PO Q6H PRN for Pain, TAB Atorvastatin (Lipitor) 40 Mg Tab 40 MG PO DAILY, TAB Bisacodyl (Bisacodyl Ec) 5 Mg Tab 1 TAB PO DAILY PRN for Constipation Bumetanide (Bumex) 2 Mg Tab 2 MG PO DAILY, TAB Calcium Carbonate (Tums) 500 Mg Chew 4 TAB PO TID Cholecalciferol (Vitamin D) 2,000 Unit Tab 1 TAB PO DAILY Docusate Sodium (Docusate Sodium) 100 Mg Cap 1 CAP PO BID, CAP Insulin Glargine (Lantus) 100 Unit/Ml Inj 45 UNIT SC QAM, VIAL Insulin Lispro (Human) (Humalog) 100 Unit/Ml Inj 1 DOSE SC TID TAKES 7 UNITS AT HS TAKES 9 UNITS AT BEFORE LUNCH AND SUPPER Levothyroxine Sodium (Levothyroxine Sodium) 50 Mcg Tab 1 TAB PO QAM, TAB Levothyroxine Sodium (Levothyroxine Sodium) 200 Mcg Tab 1 TAB PO QAM, TAB Melatonin (Kp Melatonin) 3 Mg Tab 1 TAB PO HS, TAB Metoprolol Tartrate (Lopressor) (Lopressor) 25 Mg Tab 25 MG PO BID, TAB Pantoprazole (Protonix) 40 Mg Tab 40 MG PO DAILY, TAB Polyethylene (Miralax) 17 Gm Pow 1 DOSE PO DAILY Pramipexole Dihydrochloride (Pramipexole Dihydrochlori) 0.25 Mg Tab 1 TAB PO HS Senna (Senokot) 8.6 Mg Tab 1 TAB PO HS, TAB Sertraline (Zoloft) 25 Mg Tab 1.5 TAB PO HS, TAB Sevelamer Hydroch (Renagel) 800 Mg Tab 800 MG PO BIDM, TAB Sodium Bicarbonate (Antacid) (Sodium Bicarbonate) 650 Mg Tab 1 TAB PO DAILY, TAB Tramadol (Ultram) 50 Mg Tab 50 MG PO Q4H PRN for Pain for 3 Days, #12 TAB (This prescription has been renewed) Warfarin Sod (Jantoven) 3 Mg Tab 3 MG PO DAILY, TAB [Aquacel Cream] () 1 APPLN EXT DIRECTED Discontinued Medications: Levofloxacin (Levaquin) 500 Mg Tab 500 MG PO DAILY for 7 Days, TAB Tramadol (Ultram) 50 Mg Tab 50 MG PO Q4H PRN for Pain, #30 TAB Discharge Exam REVIEW OF SYSTEMS: Constitutional: No fever, No chills Cardiovascular: No chest pain Abdomen: No pain, No nausea, No vomiting, No diarrhea, No constipation Musculoskeletal: + problem reported (intermittent R arm pain ) Female : No dysuria Heme: No abnormal bleeding/bruising PHYSICAL EXAM: General Appearance: WD/WN, no apparent distress Eyes: sclerae normal ENT: hearing grossly normal Neck: supple, no JVD, trachea midline Respiratory/Chest: lungs clear, normal breath sounds, no respiratory distress, no accessory muscle use Cardiovascular: regular rate, rhythm Abdomen: normal bowel sounds, non tender, soft Extremities: no pedal edema, + pertinent finding (wound vac removed for transport with dressing applied C/D/I; 2+ radial pulses; unchanged dry small spherical nodules with minimal necrosis on fingers) Neurologic/Psychiatric: alert Skin: normal color, warm/dry Hospital Course ADMISSION: The patient is a 57-year-old female with a past medical history of HLD, CVA, T2Ds, CHF, hypothyroidism, hypertension, GERD, recurrent UTI, Afib ( on Coumadin), CAD, Depression, right arm vascular steal syndrome, and chronic renal failure that presents with an infection of her right AV fistula. The patient is currently at [facility] and was transferred to us from [facility] with no associated history or documentation or med rec. The patient was here 2 weeks ago and seen by Dr. Meza for a distal revascularization with interval ligation of the right arm. The patient appears to be a bad historian and has no associated history with her so it is difficult to estimate the duration of time that she has had the infection. The patient is also a poor historian about any medication changes and only states that she "gets injections in the mornings". She states that she has been having this infection for the past "year". She does appreciate at this time that there is mild tenderness over the AV fistula of the right arm, and it has continued to be red and have discharge over the past "while". At this time she denies any acute symptoms including fever, chills, sweats, abdominal pain, back pain, burning on urination, headache, or any other acute complaints. HOSPITAL COURSE: Wound Dehiscence/Infection of R AV Fistula S/P Debridement/Wound Vac: IMPROVING - MRSA + - Continue Vancomycin with HD for total 4-6 weeks - 4 week jony is June 24 - Rx sent to dialysis center -- Weekly CBC and CMP with trough - sent dosing instructions based on trough for dialysis center - ID and wound followed - patient will F/U with [facility] wound and ID - Vascular followed -- performed I&D and permcath removal Paroxysmal Atrial Fibrillation/CAD/HTN/HLD and H/O CVA: STABLE - Bumex 2 mg daily; Lopressor 25 mg BID; Lipitor 40 mg daily - Warfarin 3 mg daily and will need to adjust per INR trending ESRD on HD: TTS - Renagel 800 mg BID T2DM: A1c 6.3 - There were some discrepancies with our records and sent records on current dosing- would recommend she continue previous regimen developed at [facility] and adjust as needed based on BSG Hypothyroidism: STABLE - Synthroid 225 mcg daily Depression: - Zoloft 37.5 mg daily Code Status: FULL RESUSCITATION Total Time Spent: Greater than 30 minutes This includes examination of the patient, discharge planning, medication reconciliation, and communication with other providers. Discharge Instructions Please refer to the electronic Patient Visit Report (Discharge Instructions) for additional information. Additional Copies To Marco Connolly M.D.
== END 2018-06-05 10:24 | DRG 264 ==
LOC: C.MSW 22:27
PROVIDERS: ADMIT Internal Medicine; ATTEND Internal Medicine
PROC: 5A1D70Z Performance of Urinary Filtration, Intermittent, Less than 6 Hours Per Day (ICD-10-PCS; 2018-05-28)
PROC: 0JBG0ZZ Excision of Right Lower Arm Subcutaneous Tissue and Fascia, Open Approach (ICD-10-PCS; principal; 2018-05-28 10:30)
PROC: 0WP Anatomical Regions, General, Removal (ICD-10-PCS; 2018-06-03)
DX: T82.7XXA Infection and inflammatory reaction due to other cardiac and vascular devices, implants and grafts, initial encounter (principal); T81.31XA Disruption of external operation (surgical) wound, not elsewhere classified, initial encounter; N18.6 End stage renal disease; I13.2 Hypertensive heart and chronic kidney disease with heart failure and with stage 5 chronic kidney disease, or end stage renal disease; I96 Gangrene, not elsewhere classified; N25.81 Secondary hyperparathyroidism of renal origin; E78.5 Hyperlipidemia, unspecified; Z86.73 Personal history of transient ischemic attack (TIA), and cerebral infarction without residual deficits; E03.9 Hypothyroidism, unspecified; K21.9 Gastro-esophageal reflux disease without esophagitis; Z87.440 Personal history of urinary (tract) infections; Z79.01 Long term (current) use of anticoagulants; I25.10 Atherosclerotic heart disease of native coronary artery without angina pectoris; Z87.891 Personal history of nicotine dependence; B95.62 Methicillin resistant Staphylococcus aureus infection as the cause of diseases classified elsewhere; Z88.5 Allergy status to narcotic agent; Z88.2 Allergy status to sulfonamides; Y83.2 Surgical operation with anastomosis, bypass or graft as the cause of abnormal reaction of the patient, or of later complication, without mention of misadventure at the time of the procedure; Y92.019 Unspecified place in single-family (private) house as the place of occurrence of the external cause; I48.0 Paroxysmal atrial fibrillation; E11.21 Type 2 diabetes mellitus with diabetic nephropathy; F32.9 Major depressive disorder, single episode, unspecified; Z99.2 Dependence on renal dialysis; F01.50 Vascular dementia, unspecified severity, without behavioral disturbance, psychotic disturbance, mood disturbance, and anxiety; E66.01 Morbid (severe) obesity due to excess calories

== ENCOUNTER 2019-03-24 15:49 | Inpatient (IN) ==
--- OUTSIDE RECORDS SUMMARY | 2019-03-24 15:54 | External Medical Summary | Continuity of Care Document ---
:1960 Author Name Gerson Baldwin, Provider Address Unavailable Unavailable , Care Team Providers Name Role Phone Padmaja Tatum DO Unavailable [email or web address] Unavailable Unavailable Problems Active medical history not documented Allergies and Adverse Reactions Allergy history not documented Medications Medications not documented Procedures Procedures not documented Immunizations Immunizations not documented Plan of Treatment Planned Observations Planned Goals not documented Results No Known Results Results not documented
--- NOTE | 2019-03-24 17:37 | Ultrasound Report ---
Study: Arterial Doppler right arm HISTORY: Claudication. Occlusion. FINDINGS: Moderate increase in velocity characteristics of the right subclavian, axillary, and brachi al arteries. All arteries appear patent. Bypass graft originating from the brachial artery is patent. The fistula is patent. The radial and ulnar arteries are patent as well. IMPRESSION: 1. This study confirms patency of the bypass graft/fistula. 2. All major arterial structures of the right upper extremity appear patent although moderate velocit y increases are noted throughout. Electronically signed by: Greg Rawls M.D. 03/24/2019 5:36 PM
--- NOTE | 2019-03-24 19:27 | History & Physical Report ---
Date of Service March 24, 2019 Assessment & Plan (1) Cellulitis: Patient is diabetic hand infection. There is concern is to be polymicrobial. Certainly will cover MRSA. Patient be placed on vancomycin and Primaxin renal dose adjustment. Orthopedic consult be undertaken. I do not think she can tolerate laying in a prone position in the MRI scanner so we will try CT of the hand first. Dr. Meza performed angiography and there is no decrease in blood flow to the hand (2) End-stage renal disease on hemodialysis: Patient will be continued on end-stage dialysis treatment Dr. Bradshaw be consulted (3) Anemia: Patient typically suffers from anemia of chronic disease her last hemoglobin in our facility was 11.3 g in November (4) Hyponatremia: She has persistent problems with hyponatremia at last check Chao was 129 we will currently have her on a very loose fluid restriction at this time pending laboratory to presentation (5) Atrial fibrillation: Patient is a history of atrial fibrillation and CVA. She is reasonably controlled right now. Her Coumadin dosing is likely miss entered into the computer she likely takes 3 opening of 3.25. An INR is pending on presentation and will be checked daily. If further rate control as needed we will pursue beta-brcue (6) Diabetes: Patient remains on basal bolus insulin with sliding scale coverage (7) DVT prophylaxis: DVT prevention will be her warfarin therapy which will be ordered on 03/25 once labs return History of Present Illness Primary Care Provider: LAITH WICK I was called by the emergency room staff to admit this patient. Reportedly this patient was brought in the hospital by Dr. Meza. Dr. Watkins is not present in the emergency department. Reportedly Dr. Weller told ER staff to have me admit the patient. I did phone Dr. Meza and he says he is not sure what is going on but he did an angiogram he knows that the blood supply to the hand is good for he feels is not a surgical admission for vascular surgery. Patient was last in our facility late in 2017. Patient herself is a poor historian. The ER notes from [facility] suggests that he presented them with a skin infection and was given intravenous vancomycin and linezolid. They did at that point time discuss with Dr. Meza over the phone at which time she was transferred facility. The patient has lines of demarcation on her hand which were dated 03/23 she is unclear whether this came from possibly from a prison. I have records from the nursing on whether she is on any pre-hospital antibiotics. Patient herself is tenderness to her hand she is got some dry gangrene to the fifth digit she is got open sores between the second and third and fourth and fifth digit previous he is got a scar in her palm which she says was done some time ago. Allergies Allergy/AdvReac Type Severity Reaction Status Date / Time oxycodone Allergy Intermediate HIVES,RASH Verified 03/24/19 16:46 Sulfa (Sulfonamide Allergy Intermediate HIVES,RASH Verified 03/24/19 16:46 Antibiotics) cephalexin Allergy Mild HIVES Verified 03/24/19 16:46 Penicillins Allergy Mild RASH Verified 03/24/19 16:46 Dyazide Allergy Unknown UNKNOWN Verified 05/08/18 11:24 hydrochlorothiazide Allergy Unknown UNKNOWN Verified 03/24/19 16:46 Sulfonylureas Allergy Unknown UNKNOWN Verified 03/24/19 16:46 triamterene Allergy Unknown UNKNOWN Verified 03/24/19 16:46 CARBONIC Allergy Unknown UNKNOWN Uncoded 03/24/19 16:46 Home Medications Home Medications Medication Instructions Recorded Confirmed Type acetaminophen 1,000 mg PO Q6H PRN MDD 3 GRAMS/24 11/26/18 03/24/19 History HOURS acetaminophen 650 mg PO Q6 PRN MDD 3 GRAMS/24 11/26/18 03/24/19 History HOURS atorvastatin 20 mg PO HS 11/26/18 03/24/19 History bisacodyl 5 mg PO DAILY PRN 11/26/18 03/24/19 History bisacodyl 10 mg OR DAILY PRN 11/26/18 03/24/19 History bumetanide 2 mg PO DAILY 11/26/18 03/24/19 History calcium carbonate [Tums] 400 mg PO AC 11/26/18 03/24/19 History cholecalciferol (vitamin D3) 2,000 units PO DAILY 11/26/18 03/24/19 History docusate sodium 100 mg PO BID PRN 11/26/18 03/24/19 History hydrocodone-acetaminophen 1 tab PO Q6 PRN 11/26/18 03/24/19 History insulin glargine [Lantus Solostar 20 units SUBCUT BID 11/26/18 03/24/19 History U-100 Insulin] insulin lispro [Humalog U-100 7 units SUBCUT AMHS 11/26/18 03/24/19 History Insulin] insulin lispro [Humalog U-100 9 units SUBCUT BID 11/26/18 03/24/19 History Insulin] levothyroxine 50 mcg PO DAILY 11/26/18 03/24/19 History levothyroxine 200 mcg PO DAILY 11/26/18 03/24/19 History melatonin 3 mg PO HS PRN 11/26/18 03/24/19 History metoprolol tartrate 25 mg PO BID 11/26/18 03/24/19 History polyethylene glycol 3350 17 g PO DAILY 11/26/18 03/24/19 History pramipexole 0.25 mg PO HS 11/26/18 03/24/19 History sennosides [senna] 8.6 mg PO HS PRN 11/26/18 03/24/19 History sertraline 37.5 mg PO HS 11/26/18 03/24/19 History sevelamer carbonate 800 mg PO TIDM 11/26/18 03/24/19 History sodium bicarbonate 650 mg PO 4XWK 11/26/18 03/24/19 History warfarin 3 mg PO 4XWK 11/26/18 03/24/19 History Selan Silver Protectant 1 applic TOPICAL BID 03/24/19 History lidocaine-prilocaine 1 applic TOPICAL DIRECTED PRN 03/24/19 03/24/19 History linezolid 600 mg PO Q12H 03/24/19 03/24/19 History mupirocin 1 applic TOPICAL DAILY 03/24/19 03/24/19 History tramadol 50 mg PO Q4 PRN 03/24/19 03/24/19 History vancomycin 1 g IV DAILY 03/24/19 03/24/19 History warfarin 32.5 mg PO 3XWK 03/24/19 03/24/19 History Past Med/Surg History Social History Preferred Language: [place] Feels Safe at Home: Yes Smoking Status: Never smoker Review of Systems Review of Systems: ROS: Patient is chronically ill No double vision blurry vision No problems with speech or swallowing No palpitations, chest pain or pressure No Wheezing or breathing issues No abdominal pain nausea vomiting diarrhea changes in appetite or weight Patient still makes urine Right is tender swollen and red No focused back pain or numbness or loss of strength No new changes in memory or confusion Physical Exam Physical Exam: The patient appeared clinically unconfused Vital signs as documented. Head exam is unremarkable. normocephalic, atraumatic Neck is without jugular venous distension, thyromegaly, or lymphademopathy Lungs are diminished at both bases Cardiac exam reveals Rhythm is regular. Systolic ejection murmurs heard first and second heart sounds normal. Abdominal exam reveals normal bowel sounds, no masses, no organomegaly right hand erythema and swelling with open areas about the right hand with some dry gangrene to the distal fifth digit Neurologic exam is A&Ox2, no focal deficits, strength is equal bilateral Psychologically seems confused Skin is concern for right hand cellulitis Results & Data Vital Signs (Past 12 Hours) Vital Signs Temp Pulse Pulse Resp BP BP Pulse Ox 03/24/19 18:18 95 H 16 120/52 L 97 03/24/19 18:00 94 H 19 128/49 L 97 03/24/19 16:07 36.7 C 97 H 24 128/54 L 96 03/24/19 16:04 36.7 C 97 H 24 128/54 L 96
[2019-03-24] MEDS ORDERED: GLUCOSE 10 TABS/TUBE PO PRN (20:57)
[2019-03-24] MEDS ORDERED: CARBOHYDRATES FOR HYPOGLYCEMIA PO PRN (20:57)
[2019-03-24] MEDS ORDERED: ONDANSETRON INJ 2 MG/ML 2 ML VIAL IV PRN (20:57)
[2019-03-24] MEDS ORDERED: GLUCAGON FOR INJ 1 MG VIAL SQ PRN (20:57)
[2019-03-24] MEDS ORDERED: NITROGLYCERIN SL 0.4 MG/TAB TAB SL PRN (20:57)
[2019-03-24] MEDS ORDERED: GLUCOSE 40% GEL 15 GM TUBE PO PRN (20:57)
[2019-03-24] MEDS ORDERED: DEXTROSE 50% 50 ML SYRINGE IV PRN (20:57)
[2019-03-24] MEDS ORDERED: VANCOMYCIN CONSULT ACTIVE PRN (21:11)
[2019-03-24 21:59] LABS: Basophils # (auto) 0.02 K/uL (0-0.2); Basophils % (auto) 0.2 %; Eosinophils # (auto) 0.02 K/uL (0-0.5); Eosinophils % (auto) 0.2 %; Hematocrit (blood only) 30.2 % (37-47); Immature Granulocytes # (auto) 0.08 K/uL (0.00-0.02); Immature Granulocytes % (auto) 0.7 %; Lymphocytes # (auto) 1.15 K/uL (1.2-3.4); Lymphocytes % (auto) 9.8 %; Mean Corpuscular Hgb Conc 33.1 g/dL (32-36); Mean Corpuscular Volume 96.5 fL (80-100); Mean Platelet Volume 10.1 fL (7.4-10.4); Monocytes # (auto) 0.82 K/uL (0.11-0.59); Neutrophils # (auto) 9.62 K/uL (1.4-6.5); Neutrophils % (auto) 82.1 %; Platelet Count 299 K/uL (130-400); RDW Coefficient of Variation 14.2 % (11.5-14.5); RDW Standard Deviation 50.1 fL (36.4-46.3); Red Blood Count 3.13 M/uL (4.2-5.4); White Blood Count 11.71 K/uL (4.8-10.8)
[2019-03-24] MEDS: TRAMADOL HCL 50 MG TABLET PO PRN (22:26)
[2019-03-24] MEDS: MoRPHine SULFATE 2 MG/ML CARP IV PRN ×2 (22:26→23:56)
[2019-03-24] MEDS: IMIPENEM/CILASTATIN SODIUM 200 MG in DEXTROSE 5% 100 ML IV SCH (22:27)
[2019-03-24] MEDS: SERTRALINE HCL 50 MG TABLET PO SCH (22:27)
[2019-03-24] MEDS: SODIUM BICARBONATE 650 MG TAB PO SCH (22:27)
[2019-03-24] MEDS: ATORVASTATIN 20 MG TAB PO SCH (22:28)
[2019-03-24] MEDS: PRAMIPEXOLE DIHYDROCHLO 0.25 MG TAB PO SCH (22:28)
[2019-03-24] MEDS: METOPROLOL TARTRATE 25 MG TAB PO SCH (22:28)
[2019-03-24] MEDS: INSULIN GLARGINE SOLOSTAR 100 UNITS/ML 3 ML PEN SQ SCH (22:29)
[2019-03-24] MEDS: INSULIN ASPART 100 UNITS/ML 3 ML PEN SC SCH (22:30)
[2019-03-24 22:32] LABS: Albumin Globulin Ratio 0.4 (0.9-2); Albumin Level 2.2 gm/dl (3.4-5.0); BUN Creatinine Ratio 12.8 (10-20); Bilirubin,Total 0.3 mg/dl (0.2-1); Calcium 9.1 mg/dl (8.5-10.1); Creatinine Clr Calc Pharmacy 7.6 ml/min; Est GFR (African American) 4.6; Globulin 5.7 gm/dl (2.5-4.0); Potassium 6.7 mmol/L (3.5-5.1); Total Protein 7.9 gm/dl (6.4-8.2)
[2019-03-24 22:40] LABS: INR 8.3 (0.9-1.1)
[2019-03-24] MEDS ORDERED: DEXTROSE 50% 50 ML SYRINGE IV STA (23:19)
[2019-03-24] MEDS ORDERED: NovoLIN-R INSULIN PER UNIT CHARGE IV STA (23:19)
[2019-03-24] MEDS ORDERED: CALCIUM GLUCONATE 10% 1,000 MG in SODIUM CHLORIDE 0.9% 50 ML IV STA (23:19)
[2019-03-24] MEDS ORDERED: INSULIN HUMAN REGULAR PER UNIT 15 UNITS in SYRINGE 14.85 ML IV SCH (23:30)
[2019-03-25] MEDS ORDERED: PHYTONADIONE 5 MG in SODIUM CHLORIDE 0.9% 50 ML IV ONE (01:15)
[2019-03-25] MEDS: MoRPHine SULFATE 2 MG/ML CARP IV PRN ×5 (04:31→18:54)
[2019-03-25] MEDS: ACETAMINOPHEN 325 MG TAB PO PRN (04:32)
[2019-03-25] MEDS: IMIPENEM/CILASTATIN SODIUM 200 MG in DEXTROSE 5% 100 ML IV SCH ×4 (04:35→21:01)
[2019-03-25] MEDS: LEVOTHYROXINE SODIUM 200 MCG TABLET PO SCH (06:49)
[2019-03-25] MEDS: LEVOTHYROXINE SODIUM 50 MCG TABLET PO SCH (06:50)
[2019-03-25] MEDS: TRAMADOL HCL 50 MG TABLET PO PRN ×3 (06:50→21:01)
[2019-03-25] MEDS: INSULIN ASPART 100 UNITS/ML 3 ML PEN SC SCH ×4 (07:55→20:39)
[2019-03-25] MEDS: CALCIUM CARBONATE 500 MG CHEWABLE TAB PO SCH ×3 (07:56→18:37)
[2019-03-25] MEDS: INSULIN GLARGINE SOLOSTAR 100 UNITS/ML 3 ML PEN SQ SCH (07:57)
[2019-03-25] MEDS: SEVELAMER HCL 800 MG TABLET PO SCH ×3 (07:57→17:05)
[2019-03-25] MEDS: CHOLECALCIFEROL 1,000 UNITS TAB PO SCH (07:58)
[2019-03-25] MEDS: METOPROLOL TARTRATE 25 MG TAB PO SCH ×2 (07:58→20:39)
[2019-03-25] MEDS: POLYETHYLENE (MIRALAX) 17 GM PACK PO SCH (07:59)
[2019-03-25 08:02] LABS: Prothrombin Time 19.7 Seconds (9.0-12.0)
[2019-03-25 08:19] LABS: Estimated Average Glucose 232 mg/dl; Hemoglobin A1C 9.7 % (4.5-5.6)
[2019-03-25 08:39] LABS: BUN Creatinine Ratio 12.5 (10-20); Calcium 9.1 mg/dl (8.5-10.1); Creatinine Clr Calc Pharmacy 7.1 ml/min; Est GFR (African American) 4.3; Est GFR (Non-African American) 3.7; Potassium 6.1 mmol/L (3.5-5.1)
[2019-03-25] MEDS ORDERED: SODIUM CHLORIDE 0.9% 1000ML 1,000 ML IV PRN (08:45)
[2019-03-25] MEDS: BUMETANIDE 1 MG TAB PO SCH (08:56)
--- NOTE | 2019-03-25 10:11 | Pharmacy Report ---
Pharmacy Abx Initial Consult - Date of Service March 25, 2019 - Pharmacy Dosing Scope Date of Consult: 03-24 Consultation requested by: Dr. Elizabeth Pharmacy is consulted to initiate vancomycin dosing therapy, order appropriate labs and adjust drug dose/frequency. - Subjective The patient is a 58 year old F admitted on 03/24/19 19:02. - Objective Height: 5 ft 3 in Weight: 111.8 kg Vital Signs (Past 12hrs): Vital Signs Temp Pulse Resp BP Pulse Ox 03/25/19 06:58 36.5 C 90 20 124/76 95 03/25/19 04:16 36.5 C 88 20 109/74 95 03/24/19 23:48 36.6 C 84 19 112/50 L 97 Lab Results (24hrs): Laboratory Tests (24 Hours) 03/25/19 03/25/19 03/24/19 07:33 07:33 21:42 WBC Neut # (Auto) Creatinine 10.20 H* D Est Cr Clr Drug Dosing 7.1 Procalcitonin 0.50 Random Vancomycin 31.2 03/24/19 03/24/19 21:42 21:42 WBC 11.71 H Neut # (Auto) 9.62 H Creatinine 9.57 H* Est Cr Clr Drug Dosing 7.6 Procalcitonin Random Vancomycin Micro Results: 03/24/19 23:36 Blood Culture - Pending Blood 03/24/19 21:42 Blood Culture - Pending Blood - Risk Factors for Resistance * Chronic dialysis within the past 30 days - MWF schedule usually at home * Antimicrobial use within the last 90 days - vancomycin/linezolid listed on med rec - Assessment & Plan Assessment/Plan: Pharmacy consulted for vancomycin dosing for possible hand cellulitis infection. Few notes documented on admission, but patient previously given IV vancomycin and linezolid prior to admission. Patient chronic HD - receives MWF typically. No dialysis on 03/24. Blood cultures x 2 are pending. Ortho and ID are also consulted to follow the patient. Of note, patient also on imipenem 200 mg iv q 6 hrs (pharmacy not consulted for this medication, but is dosed appropriately for HD patients) Vancomycin: * Patient did receive vancomycin prior to admission, therefore no additional doses were given last evening * Random vancomycin level this am supratherapeutic at 31 mcg/ml (goal 15-20 mcg/ml) - patient is to receive dialysis today, anticipate ~30% of vancomycin to be removed with dialysis * Estimated level post dialysis still >20 mcg/ml, therefore will hold doses of vancomycin again today * Unclear to what HD schedule the patient will remain on - will plan to order a random level tomorrow am to assist with further dosing. Pharmacy will continue to follow and will adjust dose/frequency as necessary. Thank you.
--- NOTE | 2019-03-25 10:17 | Infectious Disease Consult ---
Date of Consultation March 25, 2019 Assessment & Plan (1) Cellulitis of right hand: 58-year-old female with end-stage renal disease on dialysis now with what appears to be right hand cellulitis. Would recommend continuing on IV antibiotics for now, will consider further imaging such as CT scan of the hand to rule out deeper infection. Length of IV antibiotics will be determined by clinical response and culture results. Will follow. History of Present Illness Reason for Consultation: Diabetic hand infection Attending Physician: Bob Adams MD History of Present Illness History obtained mostly from medical records and medical staff as patient unable to provide adequate history. 58-year-old female with long-standing diabetes mellitus, end-stage renal disease on dialysis, with AV fistula in her right arm, who was admitted to the hospital from vascular surgery office with several days of worsening right hand infection with open ulceration of the second finger. Was found to have patent vascular supply but evidence of deep infection and so was admitted to the hospital for further management. She has been started empirically on IV vancomycin and imipenem. Blood cultures are negative so far, CT scan of the hand is pending. Orthopedic surgery consulted for possible surgery. Currently states that pain is 6-7 out of 10 in intensity right hand. Allergies Allergy/AdvReac Type Severity Reaction Status Date / Time oxycodone Allergy Intermediate HIVES,RASH Verified 03/24/19 16:46 Sulfa (Sulfonamide Allergy Intermediate HIVES,RASH Verified 03/24/19 16:46 Antibiotics) cephalexin Allergy Mild HIVES Verified 03/24/19 16:46 Penicillins Allergy Mild RASH Verified 03/24/19 16:46 Dyazide Allergy Unknown UNKNOWN Verified 05/08/18 11:24 hydrochlorothiazide Allergy Unknown UNKNOWN Verified 03/24/19 16:46 Sulfonylureas Allergy Unknown UNKNOWN Verified 03/24/19 16:46 triamterene Allergy Unknown UNKNOWN Verified 03/24/19 16:46 CARBONIC Allergy Unknown UNKNOWN Uncoded 03/24/19 16:46 Home Medications Home Medications Medication Instructions Recorded Confirmed Type acetaminophen 1,000 mg PO Q6H PRN MDD 3 GRAMS/24 11/26/18 03/24/19 History HOURS acetaminophen 650 mg PO Q6 PRN MDD 3 GRAMS/24 11/26/18 03/24/19 History HOURS atorvastatin 20 mg PO HS 11/26/18 03/24/19 History bisacodyl 5 mg PO DAILY PRN 11/26/18 03/24/19 History bisacodyl 10 mg MA DAILY PRN 11/26/18 03/24/19 History bumetanide 2 mg PO DAILY 11/26/18 03/24/19 History calcium carbonate [Tums] 400 mg PO AC 11/26/18 03/24/19 History cholecalciferol (vitamin D3) 2,000 units PO DAILY 11/26/18 03/24/19 History docusate sodium 100 mg PO BID PRN 11/26/18 03/24/19 History hydrocodone-acetaminophen 1 tab PO Q6 PRN 11/26/18 03/24/19 History insulin glargine [Lantus Solostar 20 units SUBCUT BID 11/26/18 03/24/19 History U-100 Insulin] insulin lispro [Humalog U-100 7 units SUBCUT AMHS 11/26/18 03/24/19 History Insulin] insulin lispro [Humalog U-100 9 units SUBCUT BID 11/26/18 03/24/19 History Insulin] levothyroxine 50 mcg PO DAILY 11/26/18 03/24/19 History levothyroxine 200 mcg PO DAILY 11/26/18 03/24/19 History melatonin 3 mg PO HS PRN 11/26/18 03/24/19 History metoprolol tartrate 25 mg PO BID 11/26/18 03/24/19 History polyethylene glycol 3350 17 g PO DAILY 11/26/18 03/24/19 History pramipexole 0.25 mg PO HS 11/26/18 03/24/19 History sennosides [senna] 8.6 mg PO HS PRN 11/26/18 03/24/19 History sertraline 37.5 mg PO HS 11/26/18 03/24/19 History sevelamer carbonate 800 mg PO TIDM 11/26/18 03/24/19 History sodium bicarbonate 650 mg PO 4XWK 11/26/18 03/24/19 History warfarin 3 mg PO 4XWK 11/26/18 03/24/19 History Selan Silver Protectant 1 applic TOPICAL BID 03/24/19 History lidocaine-prilocaine 1 applic TOPICAL DIRECTED PRN 03/24/19 03/24/19 History linezolid 600 mg PO Q12H 03/24/19 03/24/19 History mupirocin 1 applic TOPICAL DAILY 03/24/19 03/24/19 History tramadol 50 mg PO Q4 PRN 03/24/19 03/24/19 History vancomycin 1 g IV DAILY 03/24/19 03/24/19 History warfarin 32.5 mg PO 3XWK 03/24/19 03/24/19 History Patient History Medical History Azotemia End-stage renal disease on hemodialysis Dialysis AV fistula malfunction Anemia Hyponatremia Secondary hyperparathyroidism of renal origin AV fistula infection AV fistula Diabetes mellitus, type 2 Hemodialysis patient Hyperlipidemia Hypertension Hypothyroidism MRSA (methicillin resistant Staphylococcus aureus) Shingles Stroke Surgical History H/O section History of cholecystectomy Family History Unknown Diabetes Social History Preferred Language: Thai Communication Ability: Effective Beliefs That Will Affect Care: None marital status: Current Living Situation: Snf Other Information That Helps Us Care for You: No Feels Safe at Home: Yes Safety Concerns: Feels Safe At This Time Smoking Status: Former smoker Smoking End Date: 2017 Hx Alcohol Use: Yes Hx Substance Use: No Review of Systems Review of Systems: All systems reviewed & are unremarkable except as noted in HPI & below Physical Exam Constitutional: WD/WN, vitals as above + acute distress and + ill appearing Eyes: PERRL, conjunctivae normal, anicteric sclerae ENMT: external ear and nose normal, oropharynx normal Neck: trachea midline, no thyromegaly neck nontender Respiratory: normal respiratory effort, lungs clear to auscultation normal percussion; does not use accessory muscles Cardiovascular: Rate/Rhythm: regular rate and regular rhythm Heart Sounds: normal S1 and normal S2; no gallop, no murmur and no cardiac rub Vessels: normal peripheral pulses; no JVD Gastrointestinal (Abdomen): normal bowel sounds, soft, nontender, no hepatosplenomegaly Musculoskeletal: no cyanosis or clubbing, extremities motor strength 5/5 Spine: thoracic spine normal to inspection and lumbar spine normal to inspection; no cervical spinal tenderness Skin: + ulcer (Right second finger) and + erythema (Right hand and wrist); no rashes Neurologic: patellar DTR's 2+ bilat, sensation intact no focal motor deficits Psychiatric: A+Ox3, euthymic affect Orientation: cooperative Lymphatic: no cervical or axillary lymphadenopathy no inguinal lymphadenop athy Results & Data Vital Signs (Past 12 Hours) Vital Signs Temp Pulse Resp BP Pulse Ox 03/25/19 06:58 36.5 C 90 20 124/76 95 03/25/19 04:16 36.5 C 88 20 109/74 95 03/24/19 23:48 36.6 C 84 19 112/50 L 97 Laboratory Results Short CBC 03/24/19 Range/Units 21:42 WBC 11.71 H (4.8-10.8) K/uL Hgb 10.0 L (12.0-16.0) g/dL Hct 30.2 L (37-47) % Plt Count 299 (130-400) K/uL BMP 03/24/19 03/24/19 03/25/19 21:42 23:36 07:33 Sodium 127 L 131 L Potassium 6.7 H* 6.4 H* 6.1 H* Chloride 92 L 93 L Carbon Dioxide 22 22 BUN 125 H 127 H Creatinine 9.57 H* 10.20 H* D Glucose 231 H 115 H Calcium 9.1 9.1 Liver Function 03/24/19 Range/Units 21:42 Total Bilirubin 0.3 (0.2-1) mg/dl AST 20 (15-37) U/L ALT 22 (12-78) U/L Alkaline Phosphatase 143 H (45-117) U/L Albumin 2.2 L (3.4-5.0) gm/dl Diagnostic Findings Study: Arterial Doppler right arm HISTORY: Claudication. Occlusion. FINDINGS: Moderate increase in velocity characteristics of the right subclavian, axillary, and brachial arteries. All arteries appear patent. Bypass graft originating from the brachial artery is patent. The fistula is patent. The radial and ulnar arteries are patent as well. IMPRESSION: 1. This study confirms patency of the bypass graft/fistula. 2. All major arterial structures of the right upper extremity appear patent although moderate velocity increases are noted throughout. Electronically signed by: Greg Rawls M.D. 03/24/2019 5:36 PM Dictated: 03/24/19 1734 Transcribed: 03/24/19 1734
--- NOTE | 2019-03-25 11:05 | Nephrology Consultation ---
Date of Consultation March 25, 2019 Assessment & Plan (1) End-stage renal disease on hemodialysis: 58 y o F With end-stage renal disease on hemodialysis Friday, , Friday at [facility] dialysis unit. Admitted to the hospital with right hand cellulitis. The currently on IV antibiotic, being managed by ID. AV fistula with decent thrill and bruit. Blood pressure well control, volume status acceptable however she has hyperkalemia. --will schedule for urgent dialysis for 4 hours 2 K bath for hyperkalemia in the fact that she is due for dialysis today --avoid IV fluid, dose medications for GFR less than 10 --continue on phosphate binder with meal --Epogen for hemoglobin less than 10, hold for now as hemoglobin above 10 Will follow Thank you for allowing me to participate in your patient's care. It was a pleasure to see Kortney (2) Cellulitis of right hand: (3) Anemia: (4) Secondary hyperparathyroidism of renal origin: (5) Hyperkalemia: History of Present Illness Reason for Consultation: End-stage renal disease on hemodialysis. Attending Physician: Bob Adams MD History of Present Illness Mrs. Ardon is a 58-year-old female with end-stage renal disease on hemodialysis, hypertension, diabetes admitted to the hospital with right hand cellulitis. Nephrology consult was requested to manage hemodialysis while in hospital. Electronic medical records including labs and imaging are reviewed in detail during patient's visit. Kortney presented to the hospital with right hand pain, swelling and erythema diagnosed with cellulitis and started on IV antibiotic. She continues to have significant pain and swelling in her right hand and right upper extremity. Has end-stage renal disease, on hemodialysis Friday, , Friday at [facility] Dialysis Unit. She has right brachiocephalic AV fistula, fistula has good thrill and bruit however there is erythema and tenderness around the fistula as well. Last dialysis was Friday for 4 hours. On admission she was found to have significant hyperkalemia, potassium was 6.6 which slightly improved to 6.1 this morning. Blood pressure seems to be well controlled. Volume status otherwise acceptable. Currently she is mainly complaining of significant pain in her right hand, denies any fever, chills, shortness of breath or chest pain. Allergies Allergy/AdvReac Type Severity Reaction Status Date / Time oxycodone Allergy Intermediate HIVES,RASH Verified 03/24/19 16:46 Sulfa (Sulfonamide Allergy Intermediate HIVES,RASH Verified 03/24/19 16:46 Antibiotics) cephalexin Allergy Mild HIVES Verified 03/24/19 16:46 Penicillins Allergy Mild RASH Verified 03/24/19 16:46 Dyazide Allergy Unknown UNKNOWN Verified 05/08/18 11:24 hydrochlorothiazide Allergy Unknown UNKNOWN Verified 03/24/19 16:46 Sulfonylureas Allergy Unknown UNKNOWN Verified 03/24/19 16:46 triamterene Allergy Unknown UNKNOWN Verified 03/24/19 16:46 CARBONIC Allergy Unknown UNKNOWN Uncoded 03/24/19 16:46 Home Medications Home Medications Medication Instructions Recorded Confirmed Type acetaminophen 1,000 mg PO Q6H PRN MDD 3 GRAMS/24 11/26/18 03/24/19 History HOURS acetaminophen 650 mg PO Q6 PRN MDD 3 GRAMS/24 11/26/18 03/24/19 History HOURS atorvastatin 20 mg PO HS 11/26/18 03/24/19 History bisacodyl 5 mg PO DAILY PRN 11/26/18 03/24/19 History bisac[address] DAILY PRN 11/26/18 03/24/19 History bumetanide 2 mg PO DAILY 11/26/18 03/24/19 History calcium carbonate [Tums] 400 mg PO AC 11/26/18 03/24/19 History cholecalciferol (vitamin D3) 2,000 units PO DAILY 11/26/18 03/24/19 History docusate sodium 100 mg PO BID PRN 11/26/18 03/24/19 History hydrocodone-acetaminophen 1 tab PO Q6 PRN 11/26/18 03/24/19 History insulin glargine [Lantus Solostar 20 units SUBCUT BID 11/26/18 03/24/19 History U-100 Insulin] insulin lispro [Humalog U-100 7 units SUBCUT AMHS 11/26/18 03/24/19 History Insulin] insulin lispro [Humalog U-100 9 units SUBCUT BID 11/26/18 03/24/19 History Insulin] levothyroxine 50 mcg PO DAILY 11/26/18 03/24/19 History levothyroxine 200 mcg PO DAILY 11/26/18 03/24/19 History melatonin 3 mg PO HS PRN 11/26/18 03/24/19 History metoprolol tartrate 25 mg PO BID 11/26/18 03/24/19 History polyethylene glycol 3350 17 g PO DAILY 11/26/18 03/24/19 History pramipexole 0.25 mg PO HS 11/26/18 03/24/19 History sennosides [senna] 8.6 mg PO HS PRN 11/26/18 03/24/19 History sertraline 37.5 mg PO HS 11/26/18 03/24/19 History sevelamer carbonate 800 mg PO TIDM 11/26/18 03/24/19 History sodium bicarbonate 650 mg PO 4XWK 11/26/18 03/24/19 History warfarin 3 mg PO 4XWK 11/26/18 03/24/19 History Selan Silver Protectant 1 applic TOPICAL BID 03/24/19 History lidocaine-prilocaine 1 applic TOPICAL DIRECTED PRN 03/24/19 03/24/19 History linezolid 600 mg PO Q12H 03/24/19 03/24/19 History mupirocin 1 applic TOPICAL DAILY 03/24/19 03/24/19 History tramadol 50 mg PO Q4 PRN 03/24/19 03/24/19 History vancomycin 1 g IV DAILY 03/24/19 03/24/19 History warfarin 32.5 mg PO 3XWK 03/24/19 03/24/19 History Patient History Medical History Azotemia End-stage renal disease on hemodialysis Dialysis AV fistula malfunction Anemia Hyponatremia Secondary hyperparathyroidism of renal origin AV fistula infection Diabetes mellitus, type 2 Hemodialysis patient Hyperlipidemia Hypertension Hypothyroidism MRSA (methicillin resistant Staphylococcus aureus) Shingles Stroke Family History Unknown Diabetes Social History Preferred Language: Czech Communication Ability: Effective Beliefs That Will Affect Care: None Current Living Situation: Residential Other Information That Helps Us Care for You: No Feels Safe at Home: Yes Safety Concerns: Feels Safe At This Time Smoking Status: Former smoker Smoking End Date: 2017 Hx Alcohol Use: Yes Hx Substance Use: No Review of Systems Review of Systems: Detailed review of system was otherwise unremarkable except pertinent positive and negative findings mention above in history of present illness. Physical Exam Physical Exam: GENERAL: middle aged female, AAA x 3, pleasant, healthy-appearing, not in any distress. HEENT: Atraumatic, normocephalic. NECK: Supple, no JVD, no carotid bruit appreciated. ENT: No sinus tenderness MOUTH and THROAT: Moist oral mucosa, RESPIRATORY: Normal breathing efforts, clear to auscultation bilaterally, no wheezes or rales. CARDIOVASCULAR: S1, S2 normal, rate rhythm regular. ABDOMEN: Soft, nontender, positive bowel sound. MUSCULOSKELETAL: Normal range of motion. SKIN: No skin rash EXTREMITY: No lower extremity edema. Right hand with your erythema swelling and tenderness and ischemic changes in index finger. Brachiocephalic fistula with decent thrill and bruit however has tenderness and erythema in adjacent areas. NEURO: No gross focal neurological deficit, speech fluent. PSYCHIATRY: Normal mood and judgment Results & Data Vital Signs (Past 12 Hours) Vital Signs Temp Pulse Resp BP Pulse Ox 03/25/19 06:58 36.5 C 90 20 124/76 95 03/25/19 04:16 36.5 C 88 20 109/74 95 03/24/19 23:48 36.6 C 84 19 112/50 L 97
--- NOTE | 2019-03-25 13:08 | Orthopedic Consultation ---
Date of Consultation March 25, 2019 Assessment & Plan (1) Cellulitis of right hand: Cellulitis right hand with open wound over the second MP joint. Patient is currently undergoing dialysis which they stated would take at least another 3 hours at the time of my visit. A CT scan has been ordered by Dr. Elizabeth. We will await results of the CT scan to see if there is any drainable abscess or tenosynovitis noted. She does examine as if she does have tenosynovitis going on at this time but will see what the CT reveals. Continue current antibiotics (Primaxin). Infectious disease team has been consulted. History of Present Illness Reason for Consultation: Right hand cellulitis with open wound. Attending Physician: Bob Adams MD History of Present Illness Patient is a 58-year-old white female with history of diabetes mellitus, end- stage renal disease on dialysis, previous CVA, atrial fibrillation we have been asked to see for cellulitis of her right hand. Patient is currently in the dialysis unit. Is somewhat somnolent but is easily arousable. She does tend to nod back off to sleep if you do not keep up the conversation with her. She states that she began having some redness and swelling of her right hand last week which progressively worsened. She is somewhat of a poor historian. She is unsure of when she developed an open wound in the hand itself. She denies any recent colds or flulike symptoms or fevers. Allergies Allergy/AdvReac Type Severity Reaction Status Date / Time oxycodone Allergy Intermediate HIVES,RASH Verified 03/24/19 16:46 Sulfa (Sulfonamide Allergy Intermediate HIVES,RASH Verified 03/24/19 16:46 Antibiotics) cephalexin Allergy Mild HIVES Verified 03/24/19 16:46 Penicillins Allergy Mild RASH Verified 03/24/19 16:46 Dyazide Allergy Unknown UNKNOWN Verified 05/08/18 11:24 hydrochlorothiazide Allergy Unknown UNKNOWN Verified 03/24/19 16:46 Sulfonylureas Allergy Unknown UNKNOWN Verified 03/24/19 16:46 triamterene Allergy Unknown UNKNOWN Verified 03/24/19 16:46 CARBONIC Allergy Unknown UNKNOWN Uncoded 03/24/19 16:46 Home Medications Home Medications Medication Instructions Recorded Confirmed Type acetaminophen 1,000 mg PO Q6H PRN MDD 3 GRAMS/24 11/26/18 03/24/19 History HOURS acetaminophen 650 mg PO Q6 PRN MDD 3 GRAMS/24 11/26/18 03/24/19 History HOURS atorvastatin 20 mg PO HS 11/26/18 03/24/19 History bisacodyl 5 mg PO DAILY PRN 11/26/18 03/24/19 History bisacodyl 10 mg CO DAILY PRN 11/26/18 03/24/19 History bumetanide 2 mg PO DAILY 11/26/18 03/24/19 History calcium carbonate [Tums] 400 mg PO AC 11/26/18 03/24/19 History cholecalciferol (vitamin D3) 2,000 units PO DAILY 11/26/18 03/24/19 History docusate sodium 100 mg PO BID PRN 11/26/18 03/24/19 History hydrocodone-acetaminophen 1 tab PO Q6 PRN 11/26/18 03/24/19 History insulin glargine [Lantus Solostar 20 units SUBCUT BID 11/26/18 03/24/19 History U-100 Insulin] insulin lispro [Humalog U-100 7 units SUBCUT AMHS 11/26/18 03/24/19 History Insulin] insulin lispro [Humalog U-100 9 units SUBCUT BID 11/26/18 03/24/19 History Insulin] levothyroxine 50 mcg PO DAILY 11/26/18 03/24/19 History levothyroxine 200 mcg PO DAILY 11/26/18 03/24/19 History melatonin 3 mg PO HS PRN 11/26/18 03/24/19 History metoprolol tartrate 25 mg PO BID 11/26/18 03/24/19 History polyethylene glycol 3350 17 g PO DAILY 11/26/18 03/24/19 History pramipexole 0.25 mg PO HS 11/26/18 03/24/19 History sennosides [senna] 8.6 mg PO HS PRN 11/26/18 03/24/19 History sertraline 37.5 mg PO HS 11/26/18 03/24/19 History sevelamer carbonate 800 mg PO TIDM 11/26/18 03/24/19 History sodium bicarbonate 650 mg PO 4XWK 11/26/18 03/24/19 History warfarin 3 mg PO 4XWK 11/26/18 03/24/19 History Selan Silver Protectant 1 applic TOPICAL BID 03/24/19 History lidocaine-prilocaine 1 applic TOPICAL DIRECTED PRN 03/24/19 03/24/19 History linezolid 600 mg PO Q12H 03/24/19 03/24/19 History mupirocin 1 applic TOPICAL DAILY 03/24/19 03/24/19 History tramadol 50 mg PO Q4 PRN 03/24/19 03/24/19 History vancomycin 1 g IV DAILY 03/24/19 03/24/19 History warfarin 32.5 mg PO 3XWK 03/24/19 03/24/19 History Patient History Medical History Azotemia End-stage renal disease on hemodialysis Dialysis AV fistula malfunction Anemia Hyponatremia Secondary hyperparathyroidism of renal origin AV fistula infection Diabetes mellitus, type 2 Hemodialysis patient Hyperlipidemia Hypertension Hypothyroidism MRSA (methicillin resistant Staphylococcus aureus) Shingles Stroke Family History Unknown Diabetes Social History Preferred Language: Lithuanian Communication Ability: Effective Beliefs That Will Affect Care: None Current Living Situation: Halfway Other Information That Helps Us Care for You: No Feels Safe at Home: Yes Safety Concerns: Feels Safe At This Time Smoking Status: Former smoker Smoking End Date: 2017 Hx Alcohol Use: Yes Hx Substance Use: No Physical Exam Physical Exam: On examination of the patient's right hand, she has obviously swelling of the dorsum of the hand from the wrist down throughout the fingers. She has moderate erythema noted over the third and fourth MP joints with extension into the third finger to the PIP joint. She has an open wound that has purulent material around the edges over the second MP joint. Slightly connected to this going distally there is an eschar type area over the medial aspect of the proximal phalanx near the webspace of the second and third fingers. Light palpation over the dorsum of the hand causes the patient exquisite pain. She has no pain with palpation of the right thumb and no pain with passive extension or flexion of the thumb. I am unable to take her through passive extension/flexion of the second through fifth fingers due to pain. She is able to flex the wrist but has some slight discomfort on active extension. She states that her sensation is unaffected. Capillary refill appeared to be less than 2 seconds. Results & Data Vital Signs (Past 12 Hours) Vital Signs Temp Pulse Pulse Pulse Resp BP BP 03/25/19 12:00 77 99/30 L 03/25/19 11:40 74 101/53 L 03/25/19 11:20 75 92/38 L 03/25/19 11:00 76 102/48 L 03/25/19 10:40 76 103/51 L 03/25/19 10:25 76 119/56 L 03/25/19 09:52 36.5 C 80 03/25/19 09:30 88 03/25/19 06:58 36.5 C 90 20 124/76 03/25/19 04:16 36.5 C 88 20 109/74 Pulse Ox 03/25/19 12:00 03/25/19 11:40 03/25/19 11:20 03/25/19 11:00 03/25/19 10:40 03/25/19 10:25 03/25/19 09:52 03/25/19 09:30 03/25/19 06:58 95 03/25/19 04:16 95
--- NOTE | 2019-03-25 14:41 | Consultation ---
Date of Consultation March 25, 2019 Assessment & Plan (1) Cellulitis of right hand: This patient had an ultrasound of the arterial system done of the right upper extremity. The bypass is patent without any restenosis noted. There is good flow getting down to the wrist level. I recommended having hand surgery look at the arm to see if any debridement of the hand is needed. The flow to the hand itself appears to be adequate by the noninvasive Thank you very much for letting us participate in the care of this patient. Please call with any questions or concerns History of Present Illness Reason for Consultation: right upper arm infection Attending Physician: Bob Adams MD History of Present Illness She has had a steal in the past this is a 58-year-old with end-stage renal disease patient with a right upper arm fistula. She had an upper extremity steal syndrome requiring distal revascularization With interval ligation.She did well after this procedure. She had good flow to the hand and her symptoms resolved. She now presents with cellulitis of the right upper extremity with ulcerations and draining wounds of her right hand. This is been going on for short period of time is gotten progressively worse. Allergies Allergy/AdvReac Type Severity Reaction Status Date / Time oxycodone Allergy Intermediate HIVES,RASH Verified 03/24/19 16:46 Sulfa (Sulfonamide Allergy Intermediate HIVES,RASH Verified 03/24/19 16:46 Antibiotics) cephalexin Allergy Mild HIVES Verified 03/24/19 16:46 Penicillins Allergy Mild RASH Verified 03/24/19 16:46 Dyazide Allergy Unknown UNKNOWN Verified 05/08/18 11:24 hydrochlorothiazide Allergy Unknown UNKNOWN Verified 03/24/19 16:46 Sulfonylureas Allergy Unknown UNKNOWN Verified 03/24/19 16:46 triamterene Allergy Unknown UNKNOWN Verified 03/24/19 16:46 CARBONIC Allergy Unknown UNKNOWN Uncoded 03/24/19 16:46 Home Medications Home Medications Medication Instructions Recorded Confirmed Type acetaminophen 1,000 mg PO Q6H PRN MDD 3 GRAMS/24 11/26/18 03/24/19 History HOURS acetaminophen 650 mg PO Q6 PRN MDD 3 GRAMS/24 11/26/18 03/24/19 History HOURS atorvastatin 20 mg PO HS 11/26/18 03/24/19 History bisacodyl 5 mg PO DAILY PRN 11/26/18 03/24/19 History bisacodyl 10 mg DC DAILY PRN 11/26/18 03/24/19 History bumetanide 2 mg PO DAILY 11/26/18 03/24/19 History calcium carbonate [Tums] 400 mg PO AC 11/26/18 03/24/19 History cholecalciferol (vitamin D3) 2,000 units PO DAILY 11/26/18 03/24/19 History docusate sodium 100 mg PO BID PRN 11/26/18 03/24/19 History hydrocodone-acetaminophen 1 tab PO Q6 PRN 11/26/18 03/24/19 History insulin glargine [Lantus Solostar 20 units SUBCUT BID 11/26/18 03/24/19 History U-100 Insulin] insulin lispro [Humalog U-100 7 units SUBCUT AMHS 11/26/18 03/24/19 History Insulin] insulin lispro [Humalog U-100 9 units SUBCUT BID 11/26/18 03/24/19 History Insulin] levothyroxine 50 mcg PO DAILY 11/26/18 03/24/19 History levothyroxine 200 mcg PO DAILY 11/26/18 03/24/19 History melatonin 3 mg PO HS PRN 11/26/18 03/24/19 History metoprolol tartrate 25 mg PO BID 11/26/18 03/24/19 History polyethylene glycol 3350 17 g PO DAILY 11/26/18 03/24/19 History pramipexole 0.25 mg PO HS 11/26/18 03/24/19 History sennosides [senna] 8.6 mg PO HS PRN 11/26/18 03/24/19 History sertraline 37.5 mg PO HS 11/26/18 03/24/19 History sevelamer carbonate 800 mg PO TIDM 11/26/18 03/24/19 History sodium bicarbonate 650 mg PO 4XWK 11/26/18 03/24/19 History warfarin 3 mg PO 4XWK 11/26/18 03/24/19 History Selan Silver Protectant 1 applic TOPICAL BID 03/24/19 History lidocaine-prilocaine 1 applic TOPICAL DIRECTED PRN 03/24/19 03/24/19 History linezolid 600 mg PO Q12H 03/24/19 03/24/19 History mupirocin 1 applic TOPICAL DAILY 03/24/19 03/24/19 History tramadol 50 mg PO Q4 PRN 03/24/19 03/24/19 History vancomycin 1 g IV DAILY 03/24/19 03/24/19 History warfarin 32.5 mg PO 3XWK 03/24/19 03/24/19 History Patient History Medical History Azotemia End-stage renal disease on hemodialysis Dialysis AV fistula malfunction Anemia Hyponatremia Secondary hyperparathyroidism of renal origin AV fistula infection Diabetes mellitus, type 2 Hemodialysis patient Hyperlipidemia Hypertension Hypothyroidism MRSA (methicillin resistant Staphylococcus aureus) Shingles Stroke Family History Unknown Diabetes Social History Preferred Language: Cameroonian Communication Ability: Effective Beliefs That Will Affect Care: None Current Living Situation: [facility] Other Information That Helps Us Care for You: No Feels Safe at Home: Yes Safety Concerns: Feels Safe At This Time Smoking Status: Former smoker Smoking End Date: 2017 Hx Alcohol Use: Yes Hx Substance Use: No Review of Systems Review of Systems: All systems reviewed & are unremarkable except as noted in HPI & below Physical Exam Constitutional: WD/WN, vitals as above Respiratory: normal respiratory effort; no respiratory distress Cardiovascular: Rate/Rhythm: regular rate and regular rhythm Gastrointestinal (Abdomen): normal bowel sounds, soft, nontender, no hepatosplenomegaly Musculoskeletal: There is erythema present in the right upper extremity from the hand up to the upper arm. There are ulcers present on the hand itself with drainage. Neurologic: normal touch/pain/proprioception and CN's II-XI intact bilaterally Psychiatric: Orientation: alert and oriented x 3 Results & Data Vital Signs (Past 12 Hours) Vital Signs Temp Pulse Pulse Pulse Resp BP BP 03/25/19 13:20 78 108/59 L 03/25/19 13:00 80 116/56 L 03/25/19 12:40 80 111/56 L 03/25/19 12:20 81 117/51 L 03/25/19 12:00 77 99/30 L 03/25/19 11:40 74 101/53 L 03/25/19 11:20 75 92/38 L 03/25/19 11:00 76 102/48 L 03/25/19 10:40 76 103/51 L 03/25/19 10:25 76 119/56 L 03/25/19 09:52 36.5 C 80 03/25/19 09:30 88 03/25/19 06:58 36.5 C 90 20 124/76 03/25/19 04:16 36.5 C 88 20 109/74 Pulse Ox 03/25/19 13:20 03/25/19 13:00 03/25/19 12:40 03/25/19 12:20 03/25/19 12:00 03/25/19 11:40 03/25/19 11:20 03/25/19 11:00 03/25/19 10:40 03/25/19 10:25 03/25/19 09:52 03/25/19 09:30 03/25/19 06:58 95 03/25/19 04:16 95
--- NOTE | 2019-03-25 15:07 | Hospitalist Progress Note ---
Date of Service March 25, 2019 Assessment & Plan (1) Cellulitis: Diabetic hand infection. - Continue vanc & imipenem/cilastatin - CT hand pending - Seen by vascular, ortho, and ID - Appreciate recs (2) End-stage renal disease on hemodialysis: Electrolytes somewhat out of whack on admission - K+ up to 6.8. - S/p HD on 03/25 - Appreciate nephrology recs - Continue Bumex & sevelamer (3) Anemia: Anemia of chronic disease and CKD. - Baseline hgb ~11; on 03/25 was 10.0. - Monitor hgb (4) Atrial fibrillation: History of atrial fibrillation and CVA. Chads-Vasc of 6, making her a high-risk candidate. - Rate-controlled with metoprolol 25mg PO BID - Anticoagulation with warfarin - On presentation, her INR was 8.3 for which she received vitamin K 5mg IV x 1. - On 03/25, her INR was down to 2.0. - Monitor INR; restart warfarin after surgery. (5) Diabetes: A1c of 9.7% on 03/25. - Continue basal bolus insulin with sliding scale coverage - Glycemic pharmacist consult (6) Hypothyroidism: TSH is unknown. No signs/symptoms of hypo-/hyperthyroidism. - Continue home Synthroid 250 mcg - Get TSH in the morning (7) Restless leg syndrome: No current symptoms. - Continue ropinerole QHS (8) DVT prophylaxis: Heparin if INR < 2 after vitamin K given Subjective Patient very sleepy, but easily arousable. Reports hand pain. Reports no fevers/chills, chest pain, shortness of breath, abdominal pain, nausea, or vomiting. Review of Systems Review of Systems: All systems reviewed & are unremarkable except as noted in HPI & below Physical Exam Constitutional: WD/WN, vitals as above Respiratory: normal respiratory effort; no respiratory distress Cardiovascular: Rate/Rhythm: regular rate and regular rhythm Gastrointestinal (Abdomen): normal bowel sounds, soft, nontender, no hepatosplenomegaly Skin: + induration (Right hand; improving from demarkated areas) Neurologic: normal touch/pain/proprioception and CN's II-XI intact bilaterally Psychiatric: Orientation: alert and oriented x 3 Results & Data Vital Signs (Past 12 Hours) Vital Signs Temp Pulse Pulse Pulse Resp BP BP 03/25/19 14:00 37.4 C 77 126/56 L 03/25/19 13:20 78 108/59 L 03/25/19 13:00 80 116/56 L 03/25/19 12:40 80 111/56 L 03/25/19 12:20 81 117/51 L 03/25/19 12:00 77 99/30 L 03/25/19 11:40 74 101/53 L 03/25/19 11:20 75 92/38 L 03/25/19 11:00 76 102/48 L 03/25/19 10:40 76 103/51 L 03/25/19 10:25 76 119/56 L 03/25/19 09:52 36.5 C 80 03/25/19 09:30 88 03/25/19 06:58 36.5 C 90 20 124/76 03/25/19 04:16 36.5 C 88 20 109/74 Pulse Ox 03/25/19 14:00 03/25/19 13:20 03/25/19 13:00 03/25/19 12:40 03/25/19 12:20 03/25/19 12:00 03/25/19 11:40 03/25/19 11:20 03/25/19 11:00 03/25/19 10:40 03/25/19 10:25 03/25/19 09:52 03/25/19 09:30 03/25/19 06:58 95 03/25/19 04:16 95
[2019-03-25] MEDS ORDERED: PHARMACY GLYCEMIC MGMT CONSULT PRN (15:10)
--- NOTE | 2019-03-25 15:32 | Pharmacy Report ---
Glycemic Control Consultation - Date of Service March 25, 2019 - Scope Scope: Glycemic Pharmacist consulted by Dr Mark Adams on 03/25/19 for glycemic control and to write orders per [facility] inpatient glycemic control protocol - Objective Weight: 111.9 kg Accuchecks BSG (last 24hrs): 03/24/19 03/24/19 03/25/19 21:42 22:03 07:13 Glucose 231 H POC Glucose 244 H 126 H 03/25/19 07:33 Glucose 115 H POC Glucose Laboratory Data (last 24hrs): 03/24/19 03/24/19 03/25/19 21:42 23:36 07:33 Potassium 6.7 H* 6.4 H* 6.1 H* Carbon Dioxide 22 22 Anion Gap 13.0 H 16.0 H Creatinine 9.57 H* 10.20 H* D Est Cr Clr Drug Dosing 7.6 7.1 HbA1c: Hemoglobin A1c 9.7 % (4.5-5.6) H 03/25/19 07:33 - Recent Pertinent Medications Outpatient Anti-diabetic Regimen: * Lantus 20 units SQ BID + Humalog units ... TDD of 65 units The patient is currently receiving: * Basal insulin: Lantus 20 units every 12 hours * Correctional Insulin: Novolog Correction per scale ACHS Goal Range: Low 80 mg/dL - High 140 mg/dL Correction Factor: 20 mg/dL/unit * Prandial insulin: Per carb ratio of 1 unit per 10 grams CHO consumed * Oral Agents: Risk Factors for Insulin Resistance: * Infection: hand cellulitis on Primaxin and vancomycin * Diet: T2DM - Assessment & Plan Assessment & Plan: ASSESSMENT: * Ms Ardon is a 58 y/o F admitted with a hand cellulitis. She has a PMH of T2DM with unknown control. * Patient's A1c = 9.7% today. * However, this result is likely somewhat unreliable in ESRD patients d/t interactions between the A1c analyzing technique and high levels of urea in ESRD, reduced RBC life span, iron deficiency anemia, and EPO administration. HbA1c > 7.5% in ESRD patient may overestimate the extent of hyperglycemia in ESRD patients. * Pharmacy consulted this afternoon. Patient's fasting blood sugar was 126 mg/dL. Typically patient's require less insulin while hospitalized. Patient's regimen is very basal heavy. * Provide scale for this evening in Lantus dosing. Will utilize Novolog parameters for TDD of 65 units (home regimen) . This is looser than weight- based stress of 2. PLAN FOR INPATIENT GLYCEMIC CONTROL: * Basal insulin * Lantus 10-20 units SQ BID (10 units if BSG less than 140 mg/dL; 15 units if BSG 140-180 mg/dL; 20 units if BSG greater than 180 mg/dL) * Bolus insulin * NovoLog per scale ACHS or Q6hrs while NPO * Goal Range: Low 110 mg/dL - High 140 mg/dL * Correction Factor: 25 mg/dL/unit * Nutritional / Prandial insulin per carb ratio of 1 unit per 8 grams CHO consumed * Please note that the plan above was derived based on current level of insulin resistance and hospital stress. These recommendations are appropriate for inpatient admission only. Plan of care upon discharge will need to be reassessed to avoid potential outpatient hypo/hyperglycemia. Thank you.
--- NOTE | 2019-03-25 19:29 | CT Scan Report ---
CT OF THE RIGHT HAND WITHOUT CONTRAST CLINICAL HISTORY: Right hand swelling. Evaluate for osteomyelitis. COMPARISON STUDY: Right fifth finger radiographs November 26, 2018. TECHNIQUE: Axial images of the right hand were obtained without IV contrast. Sagittal and coronal rec onstructions were viewed. Automated exposure control was utilized for dose reduction and study was pe rformed according to ALARA principles. FINDINGS: Note is made of a wound along the lateral palmar aspect at the level of the right second me tacarpal head. There is extensive bony erosion of the right second metacarpal head. There is gas with in the base of the proximal phalanx of the right second finger. There is adjacent infiltration sugges tive of sinusitis. Sensitivity for detection of abscess is diminished on this unenhanced exam but no abscess is identified. No additional sites of bony destruction within the right hand or wrist are pre sent. There is severe arthritis of the right first carpometacarpal joint. Extensive vascular calcific ation is noted. IMPRESSION: 1. Extensive bony erosion of the right second metacarpal head consistent with osteomyelitis with asso ciated cellulitis and overlying wound. In addition, gas within the base of the proximal phalanx of th e right second finger may reflect spread of infection into the proximal phalanx. 2. No abscess within the right hand on unenhanced exam. No additional sites of osteomyelitis. 3. Extensive vascular calcification. Electronically signed by: Sekou Monzon M.D. 03/25/2019 7:27 PM
[2019-03-25] MEDS: ATORVASTATIN 20 MG TAB PO SCH (21:00)
[2019-03-25] MEDS: SERTRALINE HCL 50 MG TABLET PO SCH (21:00)
[2019-03-25] MEDS ORDERED: INSULIN GLARGINE SOLOSTAR 100 UNITS/ML 3 ML PEN SQ SCH (21:00)
[2019-03-25] MEDS: PRAMIPEXOLE DIHYDROCHLO 0.25 MG TAB PO SCH (21:00)
[2019-03-26] MEDS: TRAMADOL HCL 50 MG TABLET PO PRN ×2 (02:06→08:56)
[2019-03-26] MEDS: IMIPENEM/CILASTATIN SODIUM 200 MG in DEXTROSE 5% 100 ML IV SCH ×4 (04:18→21:46)
[2019-03-26] MEDS ORDERED: Nursing to Pharmacy Communication ONE ×2 (04:38→19:15)
[2019-03-26] MEDS: INSULIN ASPART 100 UNITS/ML 3 ML PEN SC SCH ×4 (06:01→21:43)
[2019-03-26] MEDS: LEVOTHYROXINE SODIUM 50 MCG TABLET PO SCH (06:05)
[2019-03-26] MEDS: LEVOTHYROXINE SODIUM 200 MCG TABLET PO SCH (06:05)
[2019-03-26 07:21] LABS: Hematocrit (blood only) 27.5 % (37-47); Hemoglobin 8.8 g/dL (12.0-16.0); Mean Corpuscular Volume 98.9 fL (80-100); Mean Platelet Volume 9.8 fL (7.4-10.4); Platelet Count 277 K/uL (130-400); RDW Standard Deviation 50.6 fL (36.4-46.3); Red Blood Count 2.78 M/uL (4.2-5.4); White Blood Count 11.79 K/uL (4.8-10.8)
[2019-03-26 07:33] LABS: INR 1.4 (0.9-1.1); Prothrombin Time 13.8 Seconds (9.0-12.0)
[2019-03-26 07:54] LABS: Calcium 9.1 mg/dl (8.5-10.1); Est GFR (African American) 6.5; Est GFR (Non-African American) 5.6; Potassium 5.4 mmol/L (3.5-5.1)
[2019-03-26 08:10] LABS: T4 Free Thyroxine 1.2 ng/dl (0.8-1.6)
[2019-03-26] MEDS: METOPROLOL TARTRATE 25 MG TAB PO SCH ×2 (08:48→21:45)
[2019-03-26] MEDS: SEVELAMER HCL 800 MG TABLET PO SCH ×3 (08:48→19:44)
[2019-03-26] MEDS: CALCIUM CARBONATE 500 MG CHEWABLE TAB PO SCH ×3 (08:49→19:07)
[2019-03-26] MEDS: BUMETANIDE 1 MG TAB PO SCH (08:49)
[2019-03-26] MEDS: POLYETHYLENE (MIRALAX) 17 GM PACK PO SCH (08:49)
[2019-03-26] MEDS: CHOLECALCIFEROL 1,000 UNITS TAB PO SCH (08:49)
[2019-03-26] MEDS: SODIUM BICARBONATE 650 MG TAB PO SCH (08:49)
--- NOTE | 2019-03-26 09:11 | Pharmacy Report ---
Pharmacy Abx Dose Short Note - Date of Service March 26, 2019 - Assessment & Plan Assessment 58 year old F receiving primaxin/vancomycin for treatment of cellulitis of hand (possible osteomyelitis) Day # 3 of antimicrobial therapy. Plan Vancomycin * Random level this am supratherapeutic at 27 mcg/ml (goal 15-20 mcg/ml) * CT of hand showing no abscess, but possibly osteomyelitis mentioned on report * Patient on HD for TuThSat currently (on chronic dialysis at home) - Will continue to hold doses of vancomycin today as no HD scheduled for today and anticipate level to remain unchanged due to ESRD * Patient scheduled to go to OR today for I&D * Will utilize level from today to assist with further doses tomorrow Pharmacy will continue to follow and will adjust dose/frequency as necessary. Thank you.
--- NOTE | 2019-03-26 10:08 | Nephrology Progress Note ---
Date of Service March 26, 2019 Assessment & Plan (1) End-stage renal disease on hemodialysis: 58 y o F With end-stage renal disease on hemodialysis Friday, , Friday at [facility] dialysis unit. Admitted to the hospital with right hand cellulitis. The currently on IV antibiotic, being managed by ID. AV fistula with decent thrill and bruit. Blood pressure well control, volume status acceptable however she has hyperkalemia. Had urgent dialysis yesterday for hyperkalemia. --HD tomorrow --avoid IV fluid, dose medications for GFR less than 10 --continue on phosphate binder with meal --Epogen 11771 unit tomorrow Will follow (2) Cellulitis of right hand: (3) Anemia: (4) Secondary hyperparathyroidism of renal origin: (5) Hyperkalemia: Subjective Kortney was seen and examined. Continues to have hand pain. Had HD yesterday, now electrolyte BP acceptable. Physical Exam Constitutional: WD/WN, vitals as above Respiratory: normal respiratory effort, lungs clear to auscultation Cardiovascular: RRR, no murmur, no edema Skin: Rt hand cellulitis Neurologic: PERRL, EOMI, accommodation nl, no face palsy, no dysarthria Psychiatric: A+Ox3, euthymic affect Results & Data Vital Signs (Past 12 Hours) Vital Signs Temp Pulse Pulse Pulse Resp BP Pulse Ox 03/26/19 08:17 37.2 C 89 19 93/60 L 91 03/26/19 04:00 37.6 C H 87 18 94/57 L 95 03/26/19 01:22 96 H 03/26/19 00:26 37.1 C 93 H 20 98/65 L 97
[2019-03-26] MEDS ORDERED: INSULIN GLARGINE SOLOSTAR 100 UNITS/ML 3 ML PEN SQ ONE (12:30)
--- NOTE | 2019-03-26 13:07 | Hospitalist Progress Note ---
Date of Service March 26, 2019 Assessment & Plan (1) Cellulitis: Diabetic hand infection. CT hand on 03/25 showed osteomyelitis. - Continue vanc & imipenem/cilastatin - Seen by vascular, ortho, and ID - Appreciate recs - Plan for surgery today with likely amputation needed. - Follow up deep wound cultures after surgery (2) End-stage renal disease on hemodialysis: Electrolytes somewhat out of whack on admission - K+ up to 6.8. - S/p HD on 03/25 - Appreciate nephrology recs - Continue Bumex & sevelamer - Routine HD at this point. (3) Anemia: Anemia of chronic disease and CKD. - Baseline hgb ~11; on 03/25 was 10.0. Down to 8.8 on 03/26. - Monitor hgb (4) Atrial fibrillation: History of atrial fibrillation and CVA. Chads-Vasc of 6, making her a high-risk candidate. - Rate-controlled with metoprolol 25mg PO BID - Anticoagulation with warfarin - On presentation, her INR was 8.3 for which she received vitamin K 5mg IV x 1. - On 03/25, her INR was down to 2.0. On 03/26, INR was 1.4. - Monitor INR; restart warfarin after surgery. (5) Diabetes: A1c of 9.7% on 03/25. - Continue basal bolus insulin with sliding scale coverage - Glycemic pharmacist consult (6) Hypothyroidism: TSH was 0.2 on 03/26 with normal FT4. No signs/symptoms of hypo- /hyperthyroidism. - Continue home Synthroid 250 mcg - Will not change dose in setting of acute illness. (7) Restless leg syndrome: No current symptoms. - Continue ropinerole QHS (8) DVT prophylaxis: SCDs - Consider chemoprophylaxis after surgery Subjective Continued pain in the hand. Otherwise, also somewhat tired. Review of Systems Review of Systems: All systems reviewed & are unremarkable except as noted in HPI & below Physical Exam Constitutional: WD/WN, vitals as above Respiratory: normal respiratory effort; no respiratory distress Cardiovascular: Rate/Rhythm: regular rate and regular rhythm Gastrointestinal (Abdomen): normal bowel sounds, soft, nontender, no hepatosplenomegaly Skin: + induration (Right hand; improving from demarkated areas) Neurologic: normal touch/pain/proprioception and CN's II-XI intact bilaterally Psychiatric: Orientation: alert and oriented x 3 Results & Data Vital Signs (Past 12 Hours) Vital Signs Temp Pulse Pulse Pulse Resp BP Pulse Ox 03/26/19 11:45 37.5 C 77 19 89/51 L 92 03/26/19 08:17 37.2 C 89 19 93/60 L 91 03/26/19 04:00 37.6 C H 87 18 94/57 L 95 03/26/19 01:22 96 H
[2019-03-26] MEDS: ACETAMINOPHEN 325 MG TAB PO PRN (13:23)
[2019-03-26] MEDS: MoRPHine SULFATE 2 MG/ML CARP IV PRN ×3 (13:23→23:22)
--- NOTE | 2019-03-26 14:04 | Pharmacy Report ---
Pharmacy Glycemic Short Note 2 - Date of Service March 26, 2019 - Glycemic Short BSG Results (Last 24 hours): 03/25/19 03/25/19 03/25/19 14:27 16:36 20:37 Glucose POC Glucose 124 H 140 H 139 H 03/26/19 03/26/19 03/26/19 05:59 06:47 11:43 Glucose 85 POC Glucose 102 H 105 H ASSESSMENT: 03/26: * Patient received total of 36 units of insulin yesterday, of which 30 units were basal insulin * Fasting BSG this am 85 mg/dL - held morning Lantus, trended up to 105 mg/dL at lunch therefore gave 10 units x 1 as patient NPO currently for I&D later today ; will plan to add Lantus scale on for this evening * Continue same CF/CR - only required 6 units of short acting yesterday 03/25: * Ms Ardon is a 58 y/o F admitted with a hand cellulitis. She has a PMH of T2DM with unknown control. * Patient's A1c = 9.7% today. * However, this result is likely somewhat unreliable in ESRD patients d/t interactions between the A1c analyzing technique and high levels of urea in ESRD, reduced RBC life span, iron deficiency anemia, and EPO administ ration. HbA1c > 7.5% in ESRD patient may overestimate the extent of hyperglycemia in ESRD patients. * Pharmacy consulted this afternoon. Patient's fasting blood sugar was 126 mg/dL. Typically patient's require less insulin while hospitalized. Patient's regimen is very basal heavy. * Provide scale for this evening in Lantus dosing. Will utilize Novolog parameters for TDD of 65 units (home regimen) . This is looser than weight- based stress of 2. PLAN FOR INPATIENT GLYCEMIC CONTROL: * Basal insulin: -Lantus 10 units with lunch, then scale for HS dosing -For BSG <140 - no Lantus -For BSG 140-180 - 5 units -For BSG >180 - 10 units * Lantus 10-20 units SQ BID for tomorrow am (10 units if BSG less than 140 mg/dL; 15 units if BSG 140-180 mg/dL; 20 units if BSG greater than 180 mg/dL) * Bolus insulin * NovoLog per scale ACHS or Q6hrs while NPO * Goal Range: Low 110 mg/dL - High 140 mg/dL * Correction Factor: 25 mg/dL/unit * Nutritional / Prandial insulin per carb ratio of 1 unit per 8 grams CHO consumed
--- NOTE | 2019-03-26 15:41 | Infectious Disease Progress Nt ---
Date of Service March 26, 2019 Assessment & Plan (1) Osteomyelitis of hand, right, acute: 58-year-old female with end-stage renal disease with osteomyelitis and cellulitis of the right, now awaiting surgical intervention. Patient to continue on current broad-spectrum antibiotics pending further culture results. Will follow. (2) Cellulitis of right hand: Subjective Patient seen in follow-up for right hand infection. CT scan revealed deep i nfection with osteomyelitis. Plans for surgery today, possible amputation. Appears to be tolerating antibiotics without apparent difficulty. Review of Systems Review of Systems: All systems reviewed & are unremarkable except as noted in HPI & below Results & Data Vital Signs (Past 12 Hours) Vital Signs Temp Pulse Pulse Pulse Resp BP Pulse Ox 03/26/19 15:18 37.0 C 79 21 91/56 L 96 03/26/19 11:45 37.5 C 77 19 89/51 L 92 03/26/19 08:17 37.2 C 89 19 93/60 L 91 03/26/19 08:00 87 03/26/19 04:00 37.6 C H 87 18 94/57 L 95 Laboratory Results Short CBC 03/26/19 Range/Units 06:47 WBC 11.79 H (4.8-10.8) K/uL Hgb 8.8 L (12.0-16.0) g/dL Hct 27.5 L (37-47) % Plt Count 277 (130-400) K/uL BMP 03/26/19 06:47 Sodium 133 L Potassium 5.4 H Chloride 96 L Carbon Dioxide 28 BUN 66 H Creatinine 7.23 H* D Glucose 85 Calcium 9.1 Diagnostic Findings Microbiology 03/24/19 23:36 Blood Blood Culture - Preliminary No growth to date. 03/24/19 21:42 Blood Blood Culture - Preliminary No growth to date.
--- NOTE | 2019-03-26 15:49 | History & Physical Bridge Note ---
Date of Service March 26, 2019 History & Physical Bridge Note I have examined the patient, reviewed the History & Physical and in the interval since the performance of the History & Physical I have noted the following changes of clinical significance: no changes noted
[2019-03-26] MEDS ORDERED: PROPOFOL IV EMULSION 10 MG/ML 20 ML VIAL IV ONE (16:05)
[2019-03-26] MEDS ORDERED: ONDANSETRON INJ 2 MG/ML 2 ML VIAL ONE (16:05)
[2019-03-26] MEDS ORDERED: LIDOCAINE HCL 2% 2 ML VIAL/AMP(20MG/ML) INFIL ONE (16:05)
[2019-03-26] MEDS ORDERED: MIDAZOLAM HCL 1 MG/ML 2ML VIAL ONE (16:06)
[2019-03-26] MEDS ORDERED: fentaNYL citrate 100 MCG/2 ML VIAL ONE (16:06)
--- NOTE | 2019-03-26 16:06 | Orthopedic Progress Note ---
Date of Service March 26, 2019 Assessment & Plan (1) Cellulitis of right hand: Cellulitis right hand with open wound over the second MP joint. CT suggests osteomyelitis at the 2nd metacarpal head right hand. Plan for OR today for I & D of the wound and possible 2nd metacarpal head resection. Consent completed and patient is ready to head to OR. Subjective Patient seen in follow-up for right hand infection. Awaiting OR today. Physical Exam Musculoskeletal: Right hand: ulceration near the 2nd metacarpal head. Erythema at site. Tender to palpation. Results & Data Vital Signs (Past 12 Hours) Vital Signs Temp Pulse Pulse Pulse Pulse Resp BP 03/26/19 15:48 36.9 C 77 14 103/43 L 03/26/19 15:18 37.0 C 79 21 91/56 L 03/26/19 11:45 37.5 C 77 19 89/51 L 03/26/19 08:17 37.2 C 89 19 93/60 L 03/26/19 08:00 87 Pulse Ox 03/26/19 15:48 96 03/26/19 15:18 96 03/26/19 11:45 92 03/26/19 08:17 91 03/26/19 08:00 CT results right hand 1. Extensive bony erosion of the right second metacarpal head consistent with osteomyelitis with associated cellulitis and overlying wound. In addition, gas within the base of the proximal phalanx of the right second finger may reflect spread of infection into the proximal phalanx. 2. No abscess within the right hand on unenhanced exam. No additional sites of osteomyelitis. 3. Extensive vascular calcification. Diagnostic Findings CT results right hand 1. Extensive bony erosion of the right second metacarpal head consistent with osteomyelitis with associated cellulitis and overlying wound. In addition, gas within the base of the proximal phalanx of the right second finger may reflect spread of infection into the proximal phalanx. 2. No abscess within the right hand on unenhanced exam. No additional sites of osteomyelitis. 3. Extensive vascular calcification.
--- NOTE | 2019-03-26 16:13 | Anesthesiology Consultation ---
Date of Service March 26, 2019 Assessment & Plan (1) Encounter for pre-operative examination: Chart Review Chart Review: Acceptable Risk for Surgery and Patient NOT seen in Pre Admission Testing Consults Requested none History Surgery Operation Date: 03/26/19 13:40 Proposed Procedures p Right Hand Incision and Drainage, - Henrik Izaguirre DO s with Possible 2nd Metatarsal Head Resection - Henrik Izaguirre DO Height/Weight Height: 5 ft 3 in Weight: 112.1 kg Allergies Allergy/AdvReac Type Severity Reaction Status Date / Time oxycodone Allergy Intermediate HIVES,RASH Verified 03/24/19 16:46 Sulfa (Sulfonamide Allergy Intermediate HIVES,RASH Verified 03/24/19 16:46 Antibiotics) cephalexin Allergy Mild HIVES Verified 03/24/19 16:46 Penicillins Allergy Mild RASH Verified 03/24/19 16:46 Dyazide Allergy Unknown UNKNOWN Verified 05/08/18 11:24 hydrochlorothiazide Allergy Unknown UNKNOWN Verified 03/24/19 16:46 Sulfonylureas Allergy Unknown UNKNOWN Verified 03/24/19 16:46 triamterene Allergy Unknown UNKNOWN Verified 03/24/19 16:46 CARBONIC Allergy Unknown UNKNOWN Uncoded 03/24/19 16:46 Medications Home Medications Medication Instructions Recorded Confirmed Last Taken acetaminophen 1,000 mg PO Q6H PRN MDD 3 GRAMS/24 11/26/18 03/24/19 Unknown HOURS acetaminophen 650 mg PO Q6 PRN MDD 3 GRAMS/24 11/26/18 03/24/19 Unknown HOURS atorvastatin 20 mg PO HS 11/26/18 03/24/19 Unknown bisacodyl 5 mg PO DAILY PRN 11/26/18 03/24/19 Unknown bisacodyl 10 mg OH DAILY PRN 11/26/18 03/24/19 Unknown bumetanide 2 mg PO DAILY 11/26/18 03/24/19 Unknown calcium carbonate [Tums] 400 mg PO AC 11/26/18 03/24/19 Unknown cholecalciferol (vitamin D3) 2,000 units PO DAILY 11/26/18 03/24/19 Unknown docusate sodium 100 mg PO BID PRN 11/26/18 03/24/19 Unknown hydrocodone-acetaminophen 1 tab PO Q6 PRN 11/26/18 03/24/19 Unknown insulin glargine [Lantus Solostar 20 units SUBCUT BID 11/26/18 03/24/19 Unknown U-100 Insulin] insulin lispro [Humalog U-100 7 units SUBCUT AMHS 11/26/18 03/24/19 Unknown Insulin] insulin lispro [Humalog U-100 9 units SUBCUT BID 11/26/18 03/24/19 Unknown Insulin] levothyroxine 50 mcg PO DAILY 11/26/18 03/24/19 Unknown levothyroxine 200 mcg PO DAILY 11/26/18 03/24/19 Unknown melatonin 3 mg PO HS PRN 11/26/18 03/24/19 Unknown metoprolol tartrate 25 mg PO BID 11/26/18 03/24/19 Unknown polyethylene glycol 3350 17 g PO DAILY 11/26/18 03/24/19 Unknown pramipexole 0.25 mg PO HS 11/26/18 03/24/19 Unknown sennosides [senna] 8.6 mg PO HS PRN 11/26/18 03/24/19 Unknown sertraline 37.5 mg PO HS 11/26/18 03/24/19 Unknown sevelamer carbonate 800 mg PO TIDM 11/26/18 03/24/19 Unknown sodium bicarbonate 650 mg PO 4XWK 11/26/18 03/24/19 Unknown warfarin 3 mg PO 4XWK 11/26/18 03/24/19 Unknown Selan Silver Protectant 1 applic TOPICAL BID 03/24/19 Unknown lidocaine-prilocaine 1 applic TOPICAL DIRECTED PRN 03/24/19 03/24/19 Unknown linezolid 600 mg PO Q12H 03/24/19 03/24/19 Unknown mupirocin 1 applic TOPICAL DAILY 03/24/19 03/24/19 Unknown tramadol 50 mg PO Q4 PRN 03/24/19 03/24/19 Unknown vancomycin 1 g IV DAILY 03/24/19 03/24/19 Unknown warfarin 32.5 mg PO 3XWK 03/24/19 03/24/19 Unknown Active Medications Generic Name Dose Route Start Last Admin Trade Name Freq PRN Reason Stop Dose Admin Acetaminophen 650 mg 03/24/19 20:57 03/26/19 13:23 Tylenol PO 04/23/19 20:56 650 mg Q6 PRN Administration Fever Atorvastatin Calcium 20 mg 03/24/19 21:00 03/25/19 21:00 Lipitor PO 04/23/19 20:59 20 mg HS DELANEY Administration Bumetanide 2 mg 03/25/19 09:00 03/26/19 08:49 Bumex PO 04/24/19 08:59 2 mg DAILY DELANEY Administration Calcium Carbonate 1,000 mg 03/25/19 07:30 03/26/19 13:26 Tums PO 04/24/19 07:29 1,000 mg AC DELANEY Administration Imipenem/Cilastatin Sodium 200 108 mls @ 100 mls/hr 03/24/19 22:00 03/26/19 09:58 mg/ Dextrose IV 05/05/19 21:59 Infused Q6H DELANEY Infusion Protocol Insulin Aspart 0 units 03/26/19 06:00 03/26/19 13:28 Novolog Flexpen SC 04/25/19 05:59 Not Given Q6 DELANEY Protocol Levothyroxine Sodium 50 mcg 03/25/19 06:30 03/26/19 06:05 Synthroid PO 04/24/19 06:29 50 mcg DAILYBB DELANEY Administration Levothyroxine Sodium 200 mcg 03/25/19 06:30 03/26/19 06:05 Synthroid PO 04/24/19 06:29 200 mcg DAILYBB DELANEY Administration Metoprolol Tartrate 25 mg 03/24/19 21:00 03/26/19 08:48 Lopressor PO 04/23/19 20:59 25 mg BID DELANEY Administration Morphine Sulfate 2 mg 03/24/19 20:57 03/26/19 13:23 Morphine Sulfate IV 04/07/19 20:56 2 mg Q30M PRN Administration Moderate Pain Polyethylene Glycol 17 gm 03/25/19 09:00 03/26/19 08:49 Miralax Powder Packet PO 04/24/19 08:59 Not Given DAILY DELANEY Pramipexole Dihydrochloride 0.25 mg 03/24/19 21:00 03/25/19 21:00 Mirapex PO 04/23/19 20:59 0.25 mg HS DELANEY Administration Sertraline HCl 37.5 mg 03/24/19 21:00 03/25/19 21:00 Zoloft PO 04/23/19 20:59 37.5 mg HS DELANEY Administration Sevelamer HCl 800 mg 03/25/19 08:00 03/26/19 13:27 Renagel PO 04/24/19 07:59 800 mg TIDM DELANEY Administration Sodium Bicarbonate 650 mg 03/24/19 20:57 03/26/19 08:49 Sodium Bicarbonate PO 04/23/19 20:56 650 mg [id number] DELANEY Administration Tramadol HCl 50 mg 03/24/19 20:57 03/26/19 08:56 Ultram PO 04/23/19 20:56 50 mg Q4 PRN Administration Pain Vitamin D 2,000 units 03/25/19 09:00 03/26/19 08:49 Vitamin D3 PO 04/24/19 08:59 2,000 units DAILY DELANEY Administration NPO Date Last Intake of Fluids: 03/25/19 Time Last Intake of Fluids: 08:00 Date Last Intake of Solids: 03/25/19 Time Last Intake of Solids: 08:00 Past Medical History Medical History Azotemia End-stage renal disease on hemodialysis Dialysis AV fistula malfunction Anemia Hyponatremia Secondary hyperparathyroidism of renal origin AV fistula infection AV fistula Diabetes mellitus, type 2 Hemodialysis patient Hyperlipidemia Hypertension Hypothyroidism MRSA (methicillin resistant Staphylococcus aureus) Shingles Stroke Exercise / Class Metabolic Activity IV < 2 Limit ADL/Bedbound Past Family History Family History Unknown Diabetes Past Surgical History Surgical History H/O section History of cholecystectomy Past Anesthesia History No Hx of Anesthesia Complications and No Family Hx of Anesthesia Complications History of PONV No Hx of PONV and No Hx of Motion Sickness Social History Smoking Status: Former smoker Smoking End Date: 2017 Hx Alcohol Use: Yes alcohol intake frequency: holidays/special occasions only Hx Substance Use: No Physical Exam Vital Signs Last Vital Signs Temp 36.9 C 03/26/19 15:48 Pulse 77 03/26/19 15:48 Resp 14 03/26/19 15:48 BP 103/43 L 03/26/19 15:48 Pulse Ox 96 03/26/19 15:48 Testing Laboratory Results 03/26/19 06:47 03/26/19 06:47 PT 13.8 Seconds (9.0-12.0) H 03/26/19 06:47 INR 1.4 (0.9-1.1) H 03/26/19 06:47 Hemoglobin A1c 9.7 % (4.5-5.6) H 03/25/19 07:33 03/24/19 23:36 Blood Culture - Preliminary Blood No growth to date. 03/24/19 21:42 Blood Culture - Preliminary Blood No growth to date. 03/26/19 03/26/19 03/26/19 15:39 11:43 05:59 POC Glucose 91 105 H 102 H
[2019-03-26] MEDS ORDERED: ePHEDrine sulfate 50 MG/ML AMP IV PRN (16:23)
[2019-03-26] MEDS ORDERED: fentaNYL citrate 100 MCG/2 ML VIAL IV PRN (16:23)
[2019-03-26] MEDS ORDERED: ATROPINE SULFATE 0.1 MG/ML 10ML SYR IV PRN (16:23)
[2019-03-26] MEDS ORDERED: ONDANSETRON INJ 2 MG/ML 2 ML VIAL IV PRN (16:23)
[2019-03-26] MEDS ORDERED: ROCURONIUM BROMIDE 10 MG/ML 5 ML VIAL ONE (16:54)
[2019-03-26] MEDS ORDERED: GLYCOPYRROLATE 0.2 MG/ML VIAL ONE (17:22)
[2019-03-26] MEDS ORDERED: NEOSTIGMINE METHYLSULFATE 5 MG/5 ML SYR ONE (17:22)
--- NOTE | 2019-03-26 18:20 | Post Operative Brief Note ---
Immediate Post Op Note v1 Date of Surgery March 26, 2019 Pre & Post Diagnosis Operation Date: 03/26/19 13:40 Pre-Op Diagnosis: Right hand abscess dorsal hand, osteomyelits of right second metacarpal head Post-Op Diagnosis: Right hand osteomyelitis second metacarpal, osteomyelitis second proximal phalanx, right hand dorsal abscess x 2 separate sites. fasciitis dorsal hand, infectious tenosynovitis second and third extensors, rupture second extensor tendon with necrosis Procedure Operation Date: 03/26/19 13:40 Actual Procedures p Amputation right 2nd metacarpal head, amputation partial 2nd proximal phalanx; Incision and Drainage abscess dorsal right hand x2 separate incisions/locations; Debridement 2nd extensor tendon; tenosynovectomy of 2nd and 3rd extensors; partial fasciectomy dorsal hand(Right) - Henrik Izaguirre DO Surgeon Henrik Izaguirre DO [employer] None Estimated Blood Loss 3 Findings Consistent with Post-Op Diagnosis Specimens Aerobic anaerobic Gram stain right dorsal hand 2 separate sites second extensor compartment and third extensor compartment. Second metacarpal head and proximal aspect second proximal phalanx. Necrotic second extensor tendon Drains Other (Iodoform gauze x2) Complications none Disposition Accompanied Patient To Recovery: Yes Disposition: Recovery Room
--- NOTE | 2019-03-26 18:28 | Anesthesiology Progress Note ---
Date of Service March 26, 2019 Anesthesia Post Procedure Vital Signs Vital Signs: Temp Pulse Pulse Pulse Pulse Resp BP 03/26/19 18:20 36.4 C L 90 17 141/49 H 03/26/19 18:10 90 18 150/47 H 03/26/19 18:00 36.3 C L 89 18 120/82 03/26/19 17:51 36.3 C L 90 14 131/47 L 03/26/19 16:56 80 03/26/19 15:48 36.9 C 77 14 103/43 L 03/26/19 15:18 37.0 C 79 21 91/56 L 03/26/19 11:45 37.5 C 77 19 89/51 L 03/26/19 08:17 37.2 C 89 19 93/60 L 03/26/19 08:00 87 03/26/19 04:00 37.6 C H 87 18 94/57 L 03/26/19 01:22 96 H 03/26/19 00:26 37.1 C 93 H 20 98/65 L 03/25/19 19:46 36.9 C 92 H 16 91/57 L Pulse Ox 03/26/19 18:20 98 03/26/19 18:10 94 03/26/19 18:00 100 03/26/19 17:51 94 03/26/19 16:56 03/26/19 15:48 96 03/26/19 15:18 96 03/26/19 11:45 92 03/26/19 08:17 91 03/26/19 08:00 03/26/19 04:00 95 03/26/19 01:22 03/26/19 00:26 97 03/25/19 19:46 94 Pain Intensity Right Hand: Pain Intensity: 10 Transfer of Care Handoff Completed per policy Notes Mental Status: alert / awake / arousable Patient Amnestic to Procedure: Yes Nausea / Vomiting: adequately controlled Pain: adequately controlled Airway Patency, RR, SpO2: stable & adequate BP & HR: stable & adequate Hydration State: stable & adequate Anesthetic Complications: no major complications apparent
[2019-03-26] MEDS ORDERED: DOCUSATE SODIUM 100 MG CAP PO PRN (18:53)
[2019-03-26] MEDS ORDERED: BISACODYL 5 MG TABEC PO PRN (18:53)
[2019-03-26] MEDS ORDERED: BISACODYL 10 MG SUPP PR PRN (18:53)
[2019-03-26] MEDS ORDERED: SENNA 8.6 MG TAB PO PRN (18:53)
[2019-03-26] MEDS ORDERED: LINEZOLID 600 MG TAB PO SCH (18:53)
[2019-03-26] MEDS ORDERED: LIDOCAINE/PRILOCAINE 2.5% EA CRM EXT PRN (18:53)
[2019-03-26] MEDS ORDERED: INSULIN GLARGINE SOLOSTAR 100 UNITS/ML 3 ML PEN SQ SCH (21:00)
[2019-03-26] MEDS: ATORVASTATIN 20 MG TAB PO SCH (21:45)
[2019-03-26] MEDS: PRAMIPEXOLE DIHYDROCHLO 0.25 MG TAB PO SCH (21:46)
[2019-03-26] MEDS: HYDROCODONE/ACETAMOPHEN 5/325MG TAB PO PRN (21:46)
[2019-03-26] MEDS: SERTRALINE HCL 50 MG TABLET PO SCH (21:46)
[2019-03-27] MEDS: MoRPHine SULFATE 2 MG/ML CARP IV PRN ×3 (01:47→07:51)
--- NOTE | 2019-03-27 02:26 | Operative Report ---
DATE OF OPERATION: 03/26/2019 PREOPERATIVE DIAGNOSES: 1. Right hand dorsal abscess. 2. Osteomyelitis, second metacarpal head with possible osteomyelitis proximal second phalanx dorsal cellulitis of the hand. POSTOPERATIVE DIAGNOSES: 1. Right hand dorsal abscesses x2 separate sites. 2. Osteomyelitis of the second metacarpal head with advanced collapse. 3. Osteomyelitis at the proximal aspect of the second proximal phalanx. 4. Fasciitis of the dorsal hand. 5. Infectious tenosynovitis of the second and third extensor tendons. 6. Rupture of the second extensor tendon with necrosis. PROCEDURE: 1. Right hand second metacarpal head amputation. 2. Amputation of the partial second proximal phalanx. 3. Incision and drainage abscesses x2 dorsal site separate sites. 4. Debridement second extensor tendon and necrotic tissue. 5. Tinea tenosynovectomy of the second and third extensor tendons. 6. Partial fasciectomy of the dorsal hand. SURGEON: Henrik Izaguirre DO VIDEO GAME TECHNICIAN: Joe Galan PA-C. ANESTHESIA: General LMA. SPECIMENS: Aerobic, anaerobic, Gram stain, 2 separate dorsal abscesses of the right hand, necrotic second extensor tendon and proximal aspect of the proximal phalanx, second digit and second metacarpal head. DRAINS: Iodoform gauze x2. COMPLICATIONS: None. BLOOD LOSS: 3 mL. PERTINENT HISTORY: This is a 58-year-old female with advanced medical comorbidities including diabetes, end-stage renal disease, dialysis dependent, who is given instruction to be admitted to [facility] by Dr. Meza. The patient had an angiogram, the blood supply to the hand is stable; however, the patient presented from an outside hospital. She had a skin infection, was given intravenous vancomycin and linezolid. The patient had been transferred to [facility] from an outside facility. She had a zone of demarcation with lines on the dorsum of her hand dated 03/23/2019. The patient was admitted to the medical service and consultation was made for orthopedics regarding abscess and cellulitis of the right dorsal hand. The patient underwent further workup including CT scan which demonstrated likely osteomyelitis of the second metacarpal head with extension possibly into the proximal aspect of the proximal phalanx of the second digit. The patient was then scheduled for surgery as indicated. DESCRIPTION OF PROCEDURE: The patient was then taken to the operative suite, placed supine on the operating table. After review of consent and identification of proper operative site, the patient was anesthetized, LMA was placed. There was no tourniquet utilized right upper extremity due to the patient's fistula right upper extremity. Next, a right upper extremity was sterilely prepped and draped in usual fashion, elevated and an Esmarch tourniquet was applied to the level of the distal forearm over a sterile surgical towel. Next, after surgical timeout was completed and the patient was identified once again, a 15 blade scalpel was used to make an incision of the dorsum of the second extensor tendon at the zone of necrosis noted to be abscess noted there which appeared to be self-contained. There was noted to be a secondary self-contained abscess over the third extensor tendon and a 15 blade scalpel was used to make an incision there. There is indeed an abscess pocket over the third which was self-contained separate site. Abscess fluid was then cultured from both the second extensor region and also from the third extensor region separate cultures. These were passed off. There was noted to be tenosynovitis of the second and third extensor tendons. A rongeur and curette was then used to perform tenosynovectomy of the second and third extensor tendons. Once this was completed, an abscess was evacuated of both sites and noted to be full thickness tissue necrosis and rupture of the second extensor tendon without any evidence of continuity or ability to perform a direct repair due to loss of tissue. This also revealed direct extension into the second metacarpophalangeal joint. The head was probed and the articular surface of the second metacarpal head essentially sheared off due to the severe osteomyelitis present. Forceps were pressed through the bone due to its poor integrity. Next, approximately 1.5 cm proximal to the second metacarpal head, incision was made into the periosteum and the extensor was then elevated both medially and laterally. Hohmann retractors were placed around the distal metacarpal and this was then resected using a sagittal saw. This was passed off as specimen. Next, an Adson forceps was then used to probe the proximal aspect of the proximal phalanx, second digit and also the bone integrity was poor. The forceps passed easily through the proximal phalanx and approximately 1-1.5 cm distal to the articular surface of the second proximal phalanx, Hohmann retractors were placed and a sagittal saw was then used to resect the damaged area of osteomyelitis. This was also passed off as specimen. Next, a portion of the necrotic second extensor tendon was also resected using a 15 blade scalpel and then passed off as specimen. Next, the dorsal fascia was then encountered over the second and third extensor tendon compartments and partial fasciectomy was performed due to necrotic appearing fascia. The remainder of the fascia appeared healthy. Next, after the obviously grossly contaminated and necrotic tissue had been resected and debrided, the pulsatile lavage with 3 liters of sterile normal saline with bacitracin was then used to cleanse the second and third dorsal extensor regions. A 1/2 inch iodoform gauze was placed in each of separate extensor tendon compartments and the tissue was then loosely closed using interrupted 3-0 nylon sutures. A gently sterilely compressive dressing was applied over the right hand and the tourniquet was then released. The patient was awakened and taken to recovery in stable condition. I attest to the content of the Intraoperative Record and any orders documented therein. Any exception s are noted below.
[2019-03-27] MEDS: IMIPENEM/CILASTATIN SODIUM 200 MG in DEXTROSE 5% 100 ML IV SCH ×4 (05:18→22:28)
[2019-03-27] MEDS: TRAMADOL HCL 50 MG TABLET PO PRN (07:18)
[2019-03-27] MEDS: BUMETANIDE 1 MG TAB PO SCH (07:19)
[2019-03-27] MEDS: CHOLECALCIFEROL 1,000 UNITS TAB PO SCH (07:19)
[2019-03-27] MEDS: CALCIUM CARBONATE 500 MG CHEWABLE TAB PO SCH ×3 (07:19→17:07)
[2019-03-27] MEDS: POLYETHYLENE (MIRALAX) 17 GM PACK PO SCH (07:20)
[2019-03-27] MEDS: SEVELAMER HCL 800 MG TABLET PO SCH ×3 (07:20→16:38)
[2019-03-27 07:24] LABS: Hematocrit (blood only) 27.7 % (37-47); Hemoglobin 9.1 g/dL (12.0-16.0); Mean Corpuscular Hgb Conc 32.9 g/dL (32-36); Mean Corpuscular Volume 99.3 fL (80-100); Mean Platelet Volume 9.6 fL (7.4-10.4); Platelet Count 304 K/uL (130-400); RDW Standard Deviation 50.3 fL (36.4-46.3); Red Blood Count 2.79 M/uL (4.2-5.4); White Blood Count 16.19 K/uL (4.8-10.8)
[2019-03-27 07:40] LABS: INR 1.7 (0.9-1.1); Prothrombin Time 16.7 Seconds (9.0-12.0)
[2019-03-27] MEDS: LEVOTHYROXINE SODIUM 200 MCG TABLET PO SCH (07:42)
[2019-03-27] MEDS: LEVOTHYROXINE SODIUM 50 MCG TABLET PO SCH (07:42)
[2019-03-27] MEDS: METOPROLOL TARTRATE 25 MG TAB PO SCH ×2 (07:52→22:25)
[2019-03-27 08:07] LABS: BUN Creatinine Ratio 8.4 (10-20); Calcium 9.4 mg/dl (8.5-10.1); Est GFR (African American) 5.1; Est GFR (Non-African American) 4.4; Magnesium 2.7 mg/dl (1.8-2.4); Phosphorus 6.3 mg/dl (2.5-4.9); Potassium 6.3 mmol/L (3.5-5.1)
--- NOTE | 2019-03-27 08:33 | Orthopedic Progress Note ---
Date of Service March 27, 2019 Assessment & Plan (1) Osteomyelitis of hand, right, acute: POD #1 s/p Amputation right 2nd metacarpal head, amputation partial 2nd proximal phalanx; Incision and Drainage abscess dorsal right hand x2 separate incisions/locations; Debridement 2nd extensor tendon; tenosynovectomy of 2nd and 3rd extensors; partial fasciectomy dorsal hand dressing changed today and removed part of the packing, new dressing lightly applied. cont to ice/elevate, due to increased pain, med service was contacted and switched to IV Dilaudid. will have dr gresham re-evaluate Subjective POD #1 s/p Amputation right 2nd metacarpal head, amputation partial 2nd proximal phalanx; Incision and Drainage abscess dorsal right hand x2 separate incisions/locations; Debridement 2nd extensor tendon; tenosynovectomy of 2nd and 3rd extensors; partial fasciectomy dorsal hand Review of Systems Respiratory: no cough and no dyspnea Cardiovascular: no chest pain Musculoskeletal: c/o "pinching" between the 2nd and 3rd digits, increased pain Physical Exam Physical Exam: Vital Signs Temp Pulse Pulse Pulse Pulse Resp BP 03/27/19 08:01 37.3 C 94 H 22 94/59 L 03/27/19 03:40 37.1 C 97 H 18 135/61 03/27/19 00:21 36.9 C 87 18 136/62 03/26/19 20:57 03/26/19 19:57 37.0 C 85 18 137/66 03/26/19 18:54 36.9 C 89 18 167/73 H 03/26/19 18:35 90 16 129/52 L 03/26/19 18:20 36.4 C L 90 17 141/49 H 03/26/19 18:10 90 18 150/47 H 03/26/19 18:00 36.3 C L 89 18 120/82 03/26/19 17:51 36.3 C L 90 14 131/47 L 03/26/19 16:56 80 03/26/19 15:48 36.9 C 77 14 103/43 L 03/26/19 15:18 37.0 C 79 21 91/56 L 03/26/19 11:45 37.5 C 77 19 89/51 L Pulse Ox Pulse Ox 03/27/19 08:01 93 03/27/19 03:40 95 03/27/19 00:21 95 03/26/19 20:57 95 03/26/19 19:57 97 03/26/19 18:54 100 03/26/19 18:35 98 03/26/19 18:20 98 03/26/19 18:10 94 03/26/19 18:00 100 03/26/19 17:51 94 03/26/19 16:56 03/26/19 15:48 96 03/26/19 15:18 96 03/26/19 11:45 92 Intake and Output 03/26/19 03/27/19 03/27/19 22:59 06:59 14:59 Intake Total 100 / 316 108 / 316 108 / 108 Output Total 3 / 153 50 / 153 Balance 97 / 163 58 / 163 108 / 108 Intake: IV 108 / 216 108 / 108 Primaxin 200 m g In D5 100 ml @ 108 / 216 108 / 108 100 mls/hr IV Q6H DELANEY Rx#: [id number] IV Perioperative 100 / 100 Output: Urine 50 / 150 Estimated Blood Loss 3 / 3 Other: Weight 112.1 kg 108.5 kg Musculoskeletal: dressing is removed, i pulled approximately 3 inches of packing, she has quite a bit of swelling into the digits and dorsum of the hand, skin edges well approximated with nylon.Xeroform dressing over incisions. tender into the 2nd/3rd and 4th digits, she does state the "pinching" feeling is somewhat better after removing the dressing Results & Data Vital Signs (Past 12 Hours) Vital Signs Temp Pulse Resp BP Pulse Ox Pulse Ox 03/27/19 08:01 37.3 C 94 H 22 94/59 L 93 03/27/19 03:40 37.1 C 97 H 18 135/61 95 03/27/19 00:21 36.9 C 87 18 136/62 95 03/26/19 20:57 95
[2019-03-27] MEDS: HYDROmorphone INJ 0.5 MG/0.5 ML SYR IV PRN ×4 (08:43→18:33)
[2019-03-27] MEDS: INSULIN ASPART 100 UNITS/ML 3 ML PEN SC SCH ×5 (08:50→22:25)
[2019-03-27] MEDS: INSULIN GLARGINE SOLOSTAR 100 UNITS/ML 3 ML PEN SQ SCH ×2 (08:56→22:24)
[2019-03-27] MEDS ORDERED: MUPIROCIN 2% TOP SCH (09:00)
[2019-03-27] MEDS ORDERED: VANCOMYCIN 1 GM IV SCH (09:00)
[2019-03-27] MEDS ORDERED: EPOETIN ALFA 10,000 UNITS/ML VIAL IV ONE (10:15)
[2019-03-27] MEDS: ACETAMINOPHEN 325 MG TAB PO PRN (10:42)
--- NOTE | 2019-03-27 11:08 | Pharmacy Report ---
Pharmacy Glycemic Short Note 2 - Date of Service March 27, 2019 - Glycemic Short BSG Results (Last 24 hours): 03/26/19 03/26/19 03/26/19 11:43 15:39 17:57 Glucose POC Glucose 105 H 91 88 03/26/19 03/27/19 20:53 06:56 Glucose 81 POC Glucose 92 ASSESSMENT: * Total daily insulin dose continues to decrease daily. * Patient received total of 10 units of insulin yesterday, all basal insulin secondary to NPO for OR * Despite insulin dose decrease, Fasting BSG slightly below goal range this am at 81 mg/dL - will hold morning Lantus, and give Lantus per BSG scale this evening. Pt to have dialysis today. Meals will be held until after HS * Continue same CF/CR - no changes needed at this time. PLAN FOR INPATIENT GLYCEMIC CONTROL: * Basal insulin: * Hold Lantus this morning for "low" AM fasting BSG * Lantus 0-10 units SQ HS tonight- dosing based on BSG >120 mg/dl * Bolus insulin * NovoLog per scale ACHS or Q6hrs while NPO * Goal Range: Low 110 mg/dL - High 140 mg/dL * Correction Factor: 25 mg/dL/unit * Nutritional / Prandial insulin per carb ratio of 1 unit per 8 grams CHO consumed
--- NOTE | 2019-03-27 11:50 | Pharmacy Report ---
Pharmacy Abx Dose Short Note - Date of Service March 27, 2019 - Assessment & Plan Assessment/Plan Laboratory Tests 03/26/19 06:47 Random Vancomycin 27.4 Vanc level only dropped about 12% between dialysis sessions (31.2 --> 27.4). Could be due to drug accumulation in tissues with BMI of 42.4. Pt is due for dialysis today (03/27), if clearance follows similar trend, estimate the pt's level will still be >20. Will hold dose today and order a random level for tomorrow AM to assist with dosing around next dialysis session on Friday. Pharmacy will continue to follow and will adjust dose/frequency as necessary. Thank you.
--- NOTE | 2019-03-27 12:05 | Nephrology Progress Note ---
Date of Service March 27, 2019 Assessment & Plan (1) End-stage renal disease on hemodialysis: 58 y o F With end-stage renal disease on hemodialysis Friday, , Friday at [facility] dialysis unit. Admitted to the hospital with right hand cellulitis. The currently on IV antibiotic, being managed by ID. AV fistula with decent thrill and bruit. Blood pressure well control, volume status acceptable however she has hyperkalemia. Had urgent dialysis yesterday for hyperkalemia. --getting Doppler for AV fistula evaluation although on exam she has decent thrill and bruit. As potassium is running high, If fistula can not be used, she may need tunnel catheter --avoid IV fluid, dose medications for GFR less than 10 --continue on phosphate binder with meal --Epogen [id number] unit today Will follow (2) Cellulitis of right hand: (3) Anemia: (4) Secondary hyperparathyroidism of renal origin: (5) Hyperkalemia: Edwige Sheets was seen examined in her room this morning. She was not able to get dialysis today as the nurses are not able to cannulate her fistula. Now she she is getting a Doppler of the AV fistula. Potassium was high although she was on low-potassium diet. Volume status acceptable. Denies shortness of breath or chest pain. Physical Exam Constitutional: WD/WN, vitals as above Respiratory: normal respiratory effort, lungs clear to auscultation Cardiovascular: RRR, no murmur, no edema Neurologic: PERRL, EOMI, accommodation nl, no face palsy, no dysarthria Psychiatric: A+Ox3, euthymic affect Results & Data Vital Signs (Past 12 Hours) Vital Signs Temp Pulse Resp BP Pulse Ox 03/27/19 11:46 37.4 C 94 H 19 88/56 L 96 03/27/19 08:01 37.3 C 94 H 22 94/59 L 93 03/27/19 03:40 37.1 C 97 H 18 135/61 95 03/27/19 00:21 36.9 C 87 18 136/62 95
[2019-03-27] MEDS ORDERED: CALCIUM GLUCONATE 10% 1,000 MG in SODIUM CHLORIDE 0.9% 50 ML IV ONE (12:15)
[2019-03-27] MEDS: HYDROCODONE/ACETAMOPHEN 5/325MG TAB PO PRN (12:18)
--- NOTE | 2019-03-27 13:38 | Ultrasound Report ---
US hemodialysis access CLINICAL HISTORY: AV fistula and bypass check COMPARISON STUDY: Right upper extremity upper ultrasound November 28, 2017. TECHNIQUE: Grayscale and color and duplex Doppler sonography of the right upper extremity AV fistula was performed. FINDINGS: The right upper extremity AV fistula is patent. Velocities within the fistula range up to 1 50 cm/s. No thrombus is identified. No adjacent hematoma is noted. The distance from the skin to the fistula at the level of the antecubital fossa/distal upper arm is 0.7 cm. The caliber of the fistula at this level is 1.3 cm. IMPRESSION: Patent right upper extremity AV fistula. Electronically signed by: Sekou Monzon M.D. 03/27/2019 1:37 PM
--- NOTE | 2019-03-27 14:31 | Hospitalist Progress Note ---
Date of Service March 27, 2019 Assessment & Plan (1) Osteomyelitis of hand, right, acute: Diabetic hand infection. CT hand on 03/25 showed osteomyelitis. - Seen by vascular, ortho, and ID - Appreciate recs - Had extensive washout and debridement on 03/[address] Izaguirre - multiple abscesses, partial second phalanx amputation - Follow up deep wound cultures after surgery - Continue vanc & imipenem/cilastatin (2) Cellulitis: Right hand and arm. - Plan as above (3) End-stage renal disease on hemodialysis: Electrolytes somewhat out of whack on admission - K+ up to 6.8. - S/p HD on 03/25 - Appreciate nephrology recs - Continue Bumex & sevelamer - On 03/27, K+ was back up to 6.3; possibly from tissue breakdown. - HD failed on 03/27 in the AM; U/s showed patent AV fistula, will try to do HD again this afternoon (4) Anemia: Anemia of chronic disease and CKD. - Baseline hgb ~11; on 03/25 was 10.0. Hgb 9.1 on 03/27, but stable from 03/26. - Monitor hgb (5) Atrial fibrillation: History of atrial fibrillation and CVA. Chads-Vasc of 6, making her a high-risk candidate. - Rate-controlled with metoprolol 25mg PO BID - Anticoagulation with warfarin - On presentation, her INR was 8.3 for which she received vitamin K 5mg IV x 1. - On 03/25, her INR was down to 2.0. On 03/26, INR was 1.4. - Monitor INR; restarted warfarin after surgery. (6) Diabetes: A1c of 9.7% on 03/25. - Continue basal bolus insulin with sliding scale coverage - Glycemic pharmacist consult (7) Hypothyroidism: TSH was 0.2 on 03/26 with normal FT4. No signs/symptoms of hypo- /hyperthyroidism. - Continue home Synthroid 250 mcg - Will not change dose in setting of acute illness. (8) Restless leg syndrome: No current symptoms. - Continue ropinerole QHS (9) DVT prophylaxis: SCDs - INR is 1.7 on 03/27; holding heparin Subjective Pain in the right index which looks mottled and has lower light touch sensation. Reports no fevers/chills, chest pain, shortness of breath, abdominal pain, nausea, or vomiting. Physical Exam Constitutional: WD/WN, vitals as above Respiratory: normal respiratory effort; no respiratory distress Cardiovascular: Rate/Rhythm: regular rate and regular rhythm Gastrointestinal (Abdomen): normal bowel sounds, soft, nontender, no hepatosplenomegaly Skin: + induration (Right hand. Index finger mottled.) Neurologic: normal touch/pain/proprioception and CN's II-XI intact bilaterally Psychiatric: Orientation: alert and oriented x 3 Results & Data Vital Signs (Past 12 Hours) Vital Signs Temp Pulse Pulse Pulse Resp BP Pulse Ox 03/27/19 11:46 37.4 C 94 H 19 88/56 L 96 03/27/19 09:25 37.0 C 94 H 03/27/19 08:08 100 H 03/27/19 08:01 37.3 C 94 H 22 94/59 L 93 03/27/19 03:40 37.1 C 97 H 18 135/61 95
[2019-03-27] MEDS ORDERED: WARFARIN SOD 3 MG TAB PO SCH (16:00)
[2019-03-27 17:28] LABS: BUN Creatinine Ratio 8.1 (10-20); Calcium 9.1 mg/dl (8.5-10.1); Creatinine Clr Calc Pharmacy 7.3 ml/min; Est GFR (African American) 4.6; Potassium 6.5 mmol/L (3.5-5.1)
[2019-03-27] MEDS ORDERED: HYDROmorphone INJ 0.5 MG/0.5 ML SYR IV STA ×2 (18:08→19:08)
--- NOTE | 2019-03-27 20:41 | Procedure Note ---
Procedure Note Date of Service March 27, 2019 Note attempted R IJ pt with tortuous IJ. able to get flow but unable to advance wire >[address] femoral Coding
--- NOTE | 2019-03-27 21:14 | Infectious Disease Progress Nt ---
Date of Service March 27, 2019 Assessment & Plan (1) Osteomyelitis of hand, right, acute: 58-year-old female with end-stage renal disease on dialysis, with acute right hand infection with osteomyelitis and cellulitis now status post surgical debridement. Patient to continue on broad-spectrum antibiotics pending further culture results. Will follow. (2) Cellulitis of right hand: Subjective Patient seen in follow-up for right hand infection. Status post surgical debridement, operative cultures are pending. Cyanotic changes in fingers noted. Vascular surgery consulted, duplex scan without evidence of obstructive fistula, and to observe for now. Review of Systems Review of Systems: All systems reviewed & are unremarkable except as noted in HPI & below Physical Exam Constitutional: WD/WN, vitals as above comfortable; no acute distress Eyes: PERRL, conjunctivae normal, anicteric sclerae ENMT: external ear and nose normal, oropharynx normal Neck: trachea midline, no thyromegaly neck nontender Respiratory: normal respiratory effort, lungs clear to auscultation normal percussion; no respiratory distress Cardiovascular: Rate/Rhythm: regular rate and regular rhythm Heart Sounds: normal S1 and normal S2; no gallop, no murmur and no cardiac rub Gastrointestinal (Abdomen): normal bowel sounds, soft, nontender, no hepatosplenomegaly Musculoskeletal: no cyanosis or clubbing, extremities motor strength 5/5 No spinal tenderness, no joint swelling or erythema Skin: no rashes Surgical dressing intact right hand, some cyanotic changes of fingers Neurologic: moves all extremities and awake; no focal motor deficits Motor/Sensory: no sensory deficit Psychiatric: A+Ox3, euthymic affect Lymphatic: no cervical or axillary lymphadenopathy no inguinal lymphadenopathy Results & Data Vital Signs (Past 12 Hours) Vital Signs Temp Pulse Pulse Pulse Resp BP Pulse Ox 03/27/19 19:43 37.6 C H 87 18 112/60 96 03/27/19 15:08 37.1 C 93 H 19 112/64 98 03/27/19 11:46 37.4 C 94 H 19 88/56 L 96 03/27/19 09:25 37.0 C 94 H Laboratory Results Short CBC 03/27/19 Range/Units 06:56 WBC 16.19 H (4.8-10.8) K/uL Hgb 9.1 L (12.0-16.0) g/dL Hct 27.7 L (37-47) % Plt Count 304 (130-400) K/uL BMP 03/27/19 03/27/19 06:56 16:10 Sodium 132 L 131 L Potassium 6.3 H* D 6.5 H* Chloride 95 L 97 L Carbon Dioxide 25 25 BUN 74 H 78 H Creatinine 8.82 H* D 9.64 H* D Glucose 81 116 H Calcium 9.4 9.1 Diagnostic Findings Microbiology 03/26/19 17:44 Hand,Right Gram Stain - Final 03/26/19 17:44 Hand,Right Aerobic and Anaerobic Culture - Preliminary No growth to date. 03/26/19 17:44 Hand,Right Gram Stain - Final 03/26/19 17:44 Hand,Right Aerobic and Anaerobic Culture - Preliminary No growth to date. 03/24/19 23:36 Blood Blood Culture - Preliminary No growth to date. 03/24/19 21:42 Blood Blood Culture - Preliminary No growth to date. US hemodialysis access CLINICAL HISTORY: AV fistula and bypass check COMPARISON STUDY: Right upper extremity upper ultrasound November 28, 2017. TECHNIQUE: Grayscale and color and duplex Doppler sonography of the right upper extremity AV fistula was performed. FINDINGS: The right upper extremity AV fistula is patent. Velocities within the fistula range up to 150 cm/s. No thrombus is identified. No adjacent hematoma is noted. The distance from the skin to the fistula at the level of the antecubital fossa/distal upper arm is 0.7 cm. The caliber of the fistula at this level is 1.3 cm. IMPRESSION: Patent right upper extremity AV fistula.
--- NOTE | 2019-03-27 21:22 | Procedure Note ---
Procedure Note Date of Service March 27, 2019 Procedure: Femoral Central Line Placement Attending: Dr. Marshall APC: Murtaza Reyna PA-C Indication: Central Drug Administration, Poor Venous Access, Multiple Lab Draws Necessary, etc. Anesthesia: Lidocaine 1% Consent was signed and placed on the chart prior to procedure. Indication, risks, and benefits were explained at length. A time-out was completed verifying correct patient, procedure, site, positioning, and implants(s) or special equipment if applicable. the patient was placed in the supine position and her pannus was taped up using 3 inch silk tape to allow for adequate access to the RIGHT groin. Patients RIGHT Groin was cleansed and draped in the typical sterile fashion using Chloraprep. The Femoral Vein and Femoral Artery were identified using ultrasound. The superficial tissue was anesthetized using 5.0 mL of 1% lidocaine without epinephrine under direct visualization with the ultrasound. After adequate anesthetization was achieved, the Femoral Vein was cannulated under direct ultrasound guidance with one stick using an introducer needle on a syringe. Good venous blood return was maintained prior to removal of syringe from introducer needle. Using Seldinger Technique, a guide wire was advanced through the introducer needle without resistance. The introducer needle was removed and ultrasound images were obtained of the guide wire within the Femoral Vein and saved to the patients medical record. A small incision was made in penetrating fashion at the guide wire insertion site utilizing an 11 blade scalpel. The dilator was advanced to the vessel without resistance. The second dilator was advanced to the vessel with minimal resistance. The dilator was exchanged for the double lumen catheter which was advanced into the vessel without resistance. The guide wire was removed intact from the catheter without issue. Each port was easily flushed with sterile saline with great blood flow. The lines were both clamped and caps were placed on each port. The catheter was placed at the hub and sutured in place. BioPatch was applied to the catheter and a sterile Tegaderm dressing was applied over the catheter with careful attention to sterility. Patient tolerated procedure well. No immediate complications were met. Images obtained are saved for permanent record Procedural Ultrasound Guidance: Procedure Date: 03/27/2019 Indication: Need for emergent HD. Attending: Dr. Marshall APC: Murtaza Reyna PA-C Artery AND Vein visualized: YES Compressible Vein: YES Guidewire or Short Catheter seen in vein prior to dilation: YES Line confirmed in Vein with ultrasound: YES Images obtained are saved for permanent record. Coding
--- NOTE | 2019-03-27 21:46 | XRay Report ---
XR chest 1V portable CLINICAL HISTORY: s/p IJ Attempts COMPARISON STUDY: Chest radiograph November 23, 2017. FINDINGS: Vascular stent projects over the right axilla. There is no pneumothorax or pleural effusion . Interstitial thickening is noted. There may be mild right lung airspace opacity. Borderline cardiom egaly is noted. Patient is rotated. IMPRESSION: 1. No pneumothorax. 2. Interstitial thickening, slightly greater within the right lung. The findings may reflect pulmonar y edema or less likely an infectious process. Electronically signed by: Sekou Monzon M.D. 03/27/2019 9:44 PM
[2019-03-27] MEDS ORDERED: CALCIUM GLUCONATE 10% 1,000 MG in SODIUM CHLORIDE 0.9% 50 ML IV STA (21:48)
[2019-03-27] MEDS ORDERED: DEXTROSE 50% 50 ML SYRINGE IV ONE (21:48)
[2019-03-27] MEDS ORDERED: NovoLIN-R INSULIN PER UNIT CHARGE IV STA (21:48)
[2019-03-27] MEDS ORDERED: INSULIN HUMAN REGULAR PER UNIT 10 UNITS in SYRINGE 9.9 ML IV SCH (22:00)
[2019-03-27] MEDS: CLOPIDOGREL BISULFATE 75 MG TAB PO SCH (22:04)
[2019-03-27] MEDS: ASPIRIN 81 MG ECTAB PO SCH (22:04)
[2019-03-27] MEDS: ATORVASTATIN 20 MG TAB PO SCH (22:25)
[2019-03-27] MEDS: PRAMIPEXOLE DIHYDROCHLO 0.25 MG TAB PO SCH (22:25)
[2019-03-27] MEDS: SERTRALINE HCL 50 MG TABLET PO SCH (22:26)
[2019-03-27 23:55] LABS: BUN Creatinine Ratio 7.7 (10-20); Calcium 9.1 mg/dl (8.5-10.1); Creatinine Clr Calc Pharmacy 7.5 ml/min; Est GFR (African American) 4.7; Potassium 5.2 mmol/L (3.5-5.1)
[2019-03-28] MEDS: HYDROmorphone INJ 0.5 MG/0.5 ML SYR IV PRN ×2 (01:04→05:24)
[2019-03-28] MEDS: IMIPENEM/CILASTATIN SODIUM 200 MG in DEXTROSE 5% 100 ML IV SCH ×4 (05:23→21:28)
[2019-03-28] MEDS: LEVOTHYROXINE SODIUM 50 MCG TABLET PO SCH (06:16)
[2019-03-28] MEDS: LEVOTHYROXINE SODIUM 200 MCG TABLET PO SCH (06:16)
[2019-03-28] MEDS ORDERED: HYDROmorphone INJ 1 MG/ML SYRINGE IV PRN (07:41)
[2019-03-28] MEDS ORDERED: HYDROmorphone INJ 2 MG/ML SYR/VIAL ONE (07:41)
--- NOTE | 2019-03-28 07:46 | Orthopedic Progress Note ---
Date of Service March 28, 2019 Assessment & Plan (1) Osteomyelitis of hand, right, acute: POD #2 s/p Amputation right 2nd metacarpal head, amputation partial 2nd proximal phalanx; Incision and Drainage abscess dorsal right hand x2 separate incisions/locations; Debridement 2nd extensor tendon; tenosynovectomy of 2nd and 3rd extensors; partial fasciectomy dorsal hand removed the remainder of the packing this am and redressed. will have Dr Izaguirre re-evaluate later this morning. Subjective POD #2 s/p Amputation right 2nd metacarpal head, amputation partial 2nd proximal phalanx; Incision and Drainage abscess dorsal right hand x2 separate in cisions/locations; Debridement 2nd extensor tendon; tenosynovectomy of 2nd and 3rd extensors; partial fasciectomy dorsal hand she is very confused this morning, states her sister took her downtown last night drinking. pain in her hand with any attempt of examination Physical Exam Physical Exam: Vital Signs Temp Pulse Pulse Pulse Pulse Pulse Pulse 03/28/19 07:10 37.4 C 89 03/28/19 05:11 37.0 C 76 03/28/19 05:08 82 03/28/19 04:40 88 03/28/19 04:20 88 03/28/19 04:15 37.5 C 86 03/28/19 04:00 82 03/28/19 03:40 82 03/28/19 03:22 79 03/28/19 03:03 78 03/28/19 02:40 78 03/28/19 02:20 75 03/28/19 02:00 85 03/28/19 01:40 75 03/28/19 01:00 37.5 C 78 03/27/19 23:50 37.1 C 84 03/27/19 21:27 37.1 C 90 03/27/19 19:43 37.6 C H 87 03/27/19 15:08 37.1 C 93 H 03/27/19 11:46 37.4 C 94 H 03/27/19 09:25 37.0 C 94 H 03/27/19 08:08 100 H 03/27/19 08:01 37.3 C 94 H Resp BP BP BP Pulse Ox 03/28/19 07:10 19 85/52 L 98 03/28/19 05:11 113/45 L 03/28/19 05:08 125/39 L 03/28/19 04:40 105/44 L 03/28/19 04:20 101/46 L 03/28/19 04:15 117/51 L 94 03/28/19 04:00 117/51 L 03/28/19 03:40 100/47 L 03/28/19 03:22 94/43 L 03/28/19 03:03 95/40 L 03/28/19 02:40 98/42 L 03/28/19 02:20 112/40 L 03/28/19 02:00 99/41 L 03/28/19 01:40 99/49 L 03/28/19 01:00 03/27/19 23:50 94/58 L 96 03/27/19 21:27 17 94/55 L 96 03/27/19 19:43 18 112/60 96 03/27/19 15:08 19 112/64 98 03/27/19 11:46 19 88/56 L 96 03/27/19 09:25 03/27/19 08:08 03/27/19 08:01 22 94/59 L 93 Intake and Output 03/27/19 03/28/19 03/28/19 22:59 06:59 14:59 Intake Total 308 / 1060 276 / 1060 Output Total 0 / 0 Balance 308 / 1060 276 / 1060 Intake: IV 108 / 660 276 / 660 Calcium Glucon ate 10% 1,000 mg 60 / 60 In Nss 50 ml @ 240 mls/hr IV NOW STA Rx#:[id number] Primaxin 200 m g In D5 100 ml @ 108 / 540 216 / 540 100 mls/hr IV Q6H DELANEY Rx#: [id number] Oral 200 / 400 Output: Urine 0 / 0 Other: Hemodialysis Ult rafiltration 3,000 Amount Weight 111.19 kg Musculoskeletal: i pulled the remainder of the packing this am, the skin incisions are well approximated with nylon sutures. moderate swelling noted over the dorsum of her hand and into the 2nd through 5th digits. cyanotic changes noted to the 2nd digit, very tender with any type of movement. no streaking up the extremity, she does have painless ROM at her wrist joint. forearm is soft, non-tender. Results & Data Vital Signs (Past 12 Hours) Vital Signs Temp Pulse Pulse Pulse Pulse Resp BP 03/28/19 07:10 37.4 C 89 19 03/28/19 05:11 37.0 C 76 03/28/19 05:08 82 125/39 L 03/28/19 04:40 88 105/44 L 03/28/19 04:20 88 101/46 L 03/28/19 04:15 37.5 C 86 03/28/19 04:00 82 117/51 L 03/28/19 03:40 82 100/47 L 03/28/19 03:22 79 94/43 L 03/28/19 03:03 78 95/40 L 03/28/19 02:40 78 98/42 L 03/28/19 02:20 75 112/40 L 03/28/19 02:00 85 99/41 L 03/28/19 01:40 75 99/49 L 03/28/19 01:00 37.5 C 78 03/27/19 23:50 37.1 C 84 03/27/19 21:27 37.1 C 90 17 BP BP Pulse Ox 03/28/19 07:10 85/52 L 98 03/28/19 05:11 113/45 L 03/28/19 05:08 03/28/19 04:40 03/28/19 04:20 03/28/19 04:15 117/51 L 94 03/28/19 04:00 03/28/19 03:40 03/28/19 03:22 03/28/19 03:03 03/28/19 02:40 03/28/19 02:20 03/28/19 02:00 03/28/19 01:40 03/28/19 01:00 03/27/19 23:50 94/58 L 96 03/27/19 21:27 94/55 L 96 Laboratory Results Laboratory Results WBC 16.19 K/uL (4.8-10.8) H 03/27/19 06:56 RBC 2.79 M/uL (4.2-5.4) L 03/27/19 06:56 Hgb 9.1 g/dL (12.0-16.0) L 03/27/19 06:56 Hct 27.7 % (37-47) L 03/27/19 06:56 MCV 99.3 fL (80-100) 03/27/19 06:56 MCH 32.6 pg (25-34) 03/27/19 06:56 MCHC 32.9 g/dL (32-36) 03/27/19 06:56 RDW Std Deviation 50.3 fL (36.4-46.3) H 03/27/19 06:56 RDW Coeff of Tommy 14.0 % (11.5-14.5) 03/27/19 06:56 Plt Count 304 K/uL (130-400) 03/27/19 06:56 MPV 9.6 fL (7.4-10.4) 03/27/19 06:56 Immature Gran % (Auto) 0.7 % 03/24/19 21:42 Neut % (Auto) 82.1 % 03/24/19 21:42 Lymph % (Auto) 9.8 % 03/24/19 21:42 [place] % (Auto) 7.0 % 03/24/19 21:42 Eos % (Auto) 0.2 % 03/24/19 21:42 Baso % (Auto) 0.2 % 03/24/19 21:42 Immature Gran # (Auto) 0.08 K/uL (0.00-0.02) H 03/24/19 21:42 Neut # (Auto) 9.62 K/uL (1.4-6.5) H 03/24/19 21:42 Lymph # (Auto) 1.15 K/uL (1.2-3.4) L 03/24/19 21:42 [place] # (Auto) 0.82 K/uL (0.11-0.59) H 03/24/19 21:42 Eos # (Auto) 0.02 K/uL (0-0.5) 03/24/19 21:42 Baso # (Auto) 0.02 K/uL (0-0.2) 03/24/19 21:42 PT 16.7 Seconds (9.0-12.0) H 03/27/19 06:56 INR 1.7 (0.9-1.1) H 03/27/19 06:56 Sodium 131 mmol/L (136-145) L 03/27/19 23:14 Potassium 5.2 mmol/L (3.5-5.1) H D 03/27/19 23:14 Chloride 95 mmol/L (98-107) L 03/27/19 23:14 Carbon Dioxide 24 mmol/L (21-32) 03/27/19 23:14 Anion Gap 13.0 (3-11) H 03/27/19 23:14 BUN 72 mg/dl (7-18) H 03/27/19 23:14 Creatinine 9.46 mg/dl (0.6-1.2) H* 03/27/19 23:14 Est Cr Clr Drug Dosing 7.5 ml/min 03/27/19 23:14 Est GFR ( Amer) 4.7 03/27/19 23:14 Est GFR (Non-Af Amer) 4.0 03/27/19 23:14 BUN/Creatinine Ratio 7.7 (10-20) L 03/27/19 23:14 Glucose 180 mg/dl (70-99) H 03/27/19 23:14 POC Glucose 146 (70-99) H 03/27/19 20:02 Estimat Average Glucose 232 mg/dl 03/25/19 07:33 Hemoglobin A1c 9.7 % (4.5-5.6) H 03/25/19 07:33 Calcium 9.1 mg/dl (8.5-10.1) 03/27/19 23:14 Phosphorus 6.3 mg/dl (2.5-4.9) H 03/27/19 06:56 Magnesium 2.7 mg/dl (1.8-2.4) H 03/27/19 06:56 Total Bilirubin 0.3 mg/dl (0.2-1) 03/24/19 21:42 AST 20 U/L (15-37) 03/24/19 21:42 ALT 22 U/L (12-78) 03/24/19 21:42 Alkaline Phosphatase 143 U/L (45-117) H 03/24/19 21:42 Total Protein 7.9 gm/dl (6.4-8.2) 03/24/19 21:42 Albumin 2.2 gm/dl (3.4-5.0) L 03/24/19 21:42 Globulin 5.7 gm/dl (2.5-4.0) H 03/24/19 21:42 Albumin/Globulin Ratio 0.4 (0.9-2) L 03/24/19 21:42 Procalcitonin 0.50 ng/ml (0-0.5) 03/24/19 21:42 TSH 0.195 uIu/ml (0.300-4.500) L 03/26/19 06:47 Free T4 1.20 ng/dl (0.8-1.6) 03/26/19 06:47 Random Vancomycin 27.4 mcg/ml 03/26/19 06:47 Hepatitis C Ab Screen Neg (Neg) 03/24/19 21:42 Microbiology 03/26/19 17:44 Hand,Right Gram Stain - Final 03/26/19 17:44 Hand,Right Aerobic and Anaerobic Culture - Preliminary No growth to date. 03/26/19 17:44 Hand,Right Gram Stain - Final 03/26/19 17:44 Hand,Right Aerobic and Anaerobic Culture - Preliminary No growth to date. 03/24/19 23:36 Blood Blood Culture - Preliminary No growth to date. 03/24/19 21:42 Blood Blood Culture - Preliminary No growth to date.
[2019-03-28] MEDS: CLOPIDOGREL BISULFATE 75 MG TAB PO SCH (09:09)
[2019-03-28] MEDS: ASPIRIN 81 MG ECTAB PO SCH ×3 (09:09→11:20)
[2019-03-28] MEDS: BUMETANIDE 1 MG TAB PO SCH (09:09)
[2019-03-28 09:16] LABS: Hematocrit (blood only) 26.8 % (37-47); Hemoglobin 8.8 g/dL (12.0-16.0); Mean Corpuscular Hgb Conc 32.8 g/dL (32-36); Mean Corpuscular Volume 98.5 fL (80-100); Mean Platelet Volume 9.5 fL (7.4-10.4); Platelet Count 286 K/uL (130-400); RDW Coefficient of Variation 14.2 % (11.5-14.5); RDW Standard Deviation 50.8 fL (36.4-46.3); Red Blood Count 2.72 M/uL (4.2-5.4)
[2019-03-28 09:25] LABS: INR 2.6 (0.9-1.1); Prothrombin Time 24.5 Seconds (9.0-12.0)
[2019-03-28 09:46] LABS: BUN Creatinine Ratio 5.5 (10-20); Creatinine Clr Calc Pharmacy 15.6 ml/min; Est GFR (African American) 11.2; Est GFR (Non-African American) 9.7; Magnesium 2.2 mg/dl (1.8-2.4); Potassium 4.5 mmol/L (3.5-5.1)
[2019-03-28] MEDS: POLYETHYLENE (MIRALAX) 17 GM PACK PO SCH (10:26)
[2019-03-28] MEDS: CALCIUM CARBONATE 500 MG CHEWABLE TAB PO SCH ×3 (10:26→17:00)
[2019-03-28] MEDS: SEVELAMER HCL 800 MG TABLET PO SCH ×3 (10:26→17:01)
[2019-03-28] MEDS: INSULIN ASPART 100 UNITS/ML 3 ML PEN SC SCH ×4 (10:27→20:11)
[2019-03-28] MEDS: CHOLECALCIFEROL 1,000 UNITS TAB PO SCH (10:30)
[2019-03-28] MEDS: METOPROLOL TARTRATE 25 MG TAB PO SCH ×2 (11:19→20:08)
[2019-03-28] MEDS ORDERED: OPTIRAY 320 125ml IV PRN (11:25)
--- NOTE | 2019-03-28 12:01 | CT Scan Report ---
CT ANGIOGRAM OF THE RIGHT HAND CLINICAL HISTORY: Osteomyelitis with recent surgery. Ischemia and discoloration of the second finger. COMPARISON STUDY: CT scan of the right hand dated 03/25/2019. TECHNIQUE: Following the IV administration of 119 cc of Optiray 320, CT angiogram of the right hand i s performed from the distal radius and ulna to the fingertips. Images are reviewed in the axial, sagi ttal common carotid. 3-D MIPS images are created and assessed. A dose lowering technique was utilized adhering to the principles of ALARA. The examination is degraded by inability to properly position t he patient. CT DOSE: 91.22 mGy.cm FINDINGS: There is advanced atherosclerotic plaque and irregularity seen throughout the radial and ulnar arteri es. The radial and ulnar arteries are patent, as is the interosseous artery in the wrist. Flow is jose juan ntained throughout the superficial and deep palmar arches. There is no flow identified within the dig ital artery along the radial aspect of the second finger. There is focal thrombosis of the proximal d igital artery along the ulnar aspect of the second finger seen on axial image #188. There are scatter ed foci of reconstitution with thready flow in the mid to distal portions. There is also high-grade s tenosis with near-complete to complete occlusion involving the digital artery along the ulnar aspect of the third finger, best seen on axial image #198. The digital arteries within the first, fourth, an d fifth fingers appear maintained noting atherosclerotic irregularity. The skeletal structures are osteopenic. There is postoperative change consistent with osteotomy invol ving the head of the second metacarpal and the base of the second proximal phalanx. No acute fracture is identified. There is soft tissue edema and subcutaneous gas throughout the hand, greatest at the level of the second and third metacarpal heads. This is nonspecific given recent surgery. No organize d fluid collection is seen to indicate abscess. A cutaneous defect at the operative site likely repre sents a surgical incision or wound. IMPRESSION: 1. There is advanced atherosclerotic plaque and irregularity seen throughout the regional arteries. 2. The radial and ulnar arteries are patent. There is flow shown within the superficial and deep palm ar arches. 3. There is no flow identified within the digital artery along the radial aspect of the second finger . 4. There is thrombosis of the proximal digital artery along the ulnar aspect of the second finger. Th ere are scattered foci of reconstitution with thready flow in the mid to distal portions of the arter y. 5. There is moderate stenosis with near complete to complete occlusion involving the digital artery a long the ulnar aspect of the third finger. 6. Postoperative change is seen at the second metacarpophalangeal joint as above. 7. Soft tissue edema and foci of subcutaneous gas within the hand are nonspecific and likely related to recent surgery. Correlate clinically for evidence of cellulitis. 8. There is no organized fluid collection to suggest abscess. Electronically signed by: Augustus Madrid M.D. 03/28/2019 12:02 PM
[2019-03-28] MEDS: HYDROCODONE/ACETAMOPHEN 5/325MG TAB PO PRN ×2 (12:14→19:58)
--- NOTE | 2019-03-28 12:29 | Pharmacy Report ---
Pharmacy Abx Dose Short Note - Date of Service March 28, 2019 - Assessment & Plan Assessment/Plan Laboratory Tests 03/28/19 10:40 Random Vancomycin 16.2 * Pt dialysis delayed yesterday. Unable to access AV fistula. * Femoral catheter put in place overnight for access and pt was able to get dialysis from around [id number], removed 3L. * Random level of 16.2 is therapeutic. Pt does have some residual renal function, makes very little urine. Do not anticipate the level will fall to subtherapeutic levels. * Will order another random level with AM labs to better assess dosing needs prior to next dialysis session. Pharmacy will continue to follow and will adjust dose/frequency as necessary. Thank you.
[2019-03-28] MEDS ORDERED: HYDROmorphone INJ 1 MG/ML SYRINGE IV STA (12:31)
--- NOTE | 2019-03-28 12:43 | Nephrology Progress Note ---
Date of Service March 28, 2019 Assessment & Plan (1) End-stage renal disease on hemodialysis: 58 y o F With end-stage renal disease on hemodialysis Friday, , Friday at [facility] dialysis unit. Admitted to the hospital with right hand cellulitis. She had amputation and drainages of infected finger on 03/27/2019 however has some significant pain and erythema, currently on IV antibiotic, being managed by ID. AV fistula with decent thrill and bruit. Blood pressure well controlled, volume status acceptable. Had urgent dialysis yesterday for hyperkalemia. AV fistula infiltration initially on Friday morning, Doppler and examination showed otherwise normal fistula flow. Eventually she had dialysis in the afternoon. --avoid IV fluid, dose medications for GFR less than 10 --continue on phosphate binder with meal --Epogen [id number] given on 03/27/2019 --next dialysis Friday. Will follow (2) Cellulitis of right hand: (3) Anemia: (4) Secondary hyperparathyroidism of renal origin: (5) Hyperkalemia: Subjective Kortney was seen and examined this morning. She has been complaining of significant pain in her right hand seems some swelling and slightly bluish index finger. Her had dialysis yesterday. Blood pressure is slightly low but asymptomatic the Electrolyte acceptable. Physical Exam Constitutional: WD/WN, vitals as above Respiratory: normal respiratory effort, lungs clear to auscultation Cardiovascular: RRR, no murmur, no edema Neurologic: PERRL, EOMI, accommodation nl, no face palsy, no dysarthria Psychiatric: A+Ox3, euthymic affect Results & Data Vital Signs (Past 12 Hours) Vital Signs Temp Pulse Pulse Pulse Pulse Resp BP 03/28/19 11:46 36.9 C 96 H 20 03/28/19 07:10 37.4 C 89 19 03/28/19 05:11 37.0 C 76 03/28/19 05:08 82 125/39 L 03/28/19 04:40 88 105/44 L 03/28/19 04:20 88 101/46 L 03/28/19 04:15 37.5 C 86 03/28/19 04:00 82 117/51 L 03/28/19 03:40 82 100/47 L 03/28/19 03:22 79 94/43 L 03/28/19 03:03 78 95/40 L 03/28/19 02:40 78 98/42 L 03/28/19 02:20 75 112/40 L 03/28/19 02:00 85 99/41 L 03/28/19 01:40 75 99/49 L 03/28/19 01:00 37.5 C 78 BP BP Pulse Ox 03/28/19 11:46 96/61 L 100 03/28/19 07:10 85/52 L 98 03/28/19 05:11 113/45 L 03/28/19 05:08 03/28/19 04:40 03/28/19 04:20 03/28/19 04:15 117/51 L 94 03/28/19 04:00 03/28/19 03:40 03/28/19 03:22 03/28/19 03:03 03/28/19 02:40 03/28/19 02:20 03/28/19 02:00 03/28/19 01:40 03/28/19 01:00
[2019-03-28] MEDS: NITROGLYCERIN 2% OINTMENT 30GM TUBE EXT SCH ×3 (13:25→21:28)
--- NOTE | 2019-03-28 14:12 | Hospitalist Progress Note ---
Date of Service March 28, 2019 Assessment & Plan (1) Osteomyelitis of hand, right, acute: Diabetic hand infection. CT hand on 03/25 showed osteomyelitis. - Seen by vascular, ortho, and ID - Appreciate recs - Had extensive washout and debridement on 03/[address] Izaguirre - multiple abscesses, partial amputations of the second metacarpal head and second proximal phalanx - Follow up deep wound cultures after surgery - Continue vanc & imipenem/cilastatin - May need another washout and/or amputation of her index finger (2) Ischemic finger: On 03/27, her right index finger became cool, mottled, and painful. I discussed this with Drs. Izaguirre, Derrick, and Isaiah, as well as a vascular surgeon from [place] in regards to any salvage therapy for the index finger. She was put on aspirin and Plavix. Heparin gtt was not done due to her INR being kain r therapeutic. Discussed calcium channel blockers or nitro, but it was not thought to be vasospasm-induced, so unlikely to help, and additionally her BP has been low-normal in the 90/60 range, so I do not think she would tolerate either therapy. Attempted to get u/s Dopplers of the hand arteries, but the tech could not get them through her dressing from the recent surgery. - CTA right hand on 03/28 showed: 1) flow in the radial, ulnar, superficial palmar, and deep palmar arteries 2) no flow within the digital artery along the radial aspect of the second finger 3) thrombosis of the proximal digital artery along the ulnar aspect of the second finger 4) moderate stenosis with near complete to complete occlusion involving the digital artery along the ulnar aspect of the third finger Given her extensive artherosclerotic disease seen on the CTA and her recent significant surgery, there are no viable surgical options for the ischemic right index finger. In discussion with the surgeons, medical therapy is all that's possible for now. (3) Cellulitis: Right hand and arm. - Plan as above (4) End-stage renal disease on hemodialysis: On admission - K+ up to 6.8. - S/p HD on 03/25 - Continue Bumex & sevelamer - On 03/27, K+ was back up to 6.3; possibly from tissue breakdown. - HD failed on 03/27 in the AM; U/s showed patent AV fistula. AVF infiltrated a second time in the evening. - On 03/27 at ~10pm, she had an urgent femoral HD line placed by pulm/cc - Underwent HD overnight of 03/27-03/28 - Appreciate nephrology recs - Plan for HD on Friday if K+ remains normal. (5) Anemia: Anemia of chronic disease and CKD. - Baseline hgb ~11; on 03/25 was 10.0. Hgb 8.8 on 03/28, but stable from 03/27. - Monitor hgb (6) Atrial fibrillation: History of atrial fibrillation and CVA. Chads-Vasc of 6, making her a high-risk candidate. - Rate-controlled with metoprolol 25mg PO BID - Anticoagulation with warfarin - On presentation, her INR was 8.3 for which she received vitamin K 5mg IV x 1. - On 03/25, her INR was down to 2.0. On 03/26, INR was 1.4. - Monitor INR; restarted warfarin after surgery. - Held warfarin on 03/28, as her INR was rising quickly - Will likely need lower dose given her poor PO intake (7) Diabetes: A1c of 9.7% on 03/25. - Continue basal bolus insulin with sliding scale coverage - Glycemic pharmacist consult (8) Hypothyroidism: TSH was 0.2 on 03/26 with normal FT4. No signs/symptoms of hypo- /hyperthyroidism. - Continue home Synthroid 250 mcg - Will not change dose in setting of acute illness. (9) Restless leg syndrome: No current symptoms. - Continue ropinerole QHS (10) DVT prophylaxis: SCDs - INR is 2.6 on 03/28 Subjective Extreme pain today in the right finger. Reports no fevers/chills, chest pain, shortness of breath, abdominal pain, nausea, or vomiting. Physical Exam Constitutional: WD/WN, vitals as above Respiratory: normal respiratory effort; no respiratory distress Cardiovascular: Rate/Rhythm: regular rate and regular rhythm Gastrointestinal (Abdomen): normal bowel sounds, soft, nontender, no hepatosplenomegaly Skin: + induration (Right hand. Index finger mottled.) Neurologic: normal touch/pain/proprioception and CN's II-XI intact bilaterally Psychiatric: Orientation: alert and oriented x 3 Results & Data Vital Signs (Past 12 Hours) Vital Signs Temp Pulse Pulse Pulse Pulse Resp BP 03/28/19 13:27 91 H 03/28/19 11:46 36.9 C 96 H 20 03/28/19 07:10 37.4 C 89 19 03/28/19 05:11 37.0 C 76 03/28/19 05:08 82 125/39 L 03/28/19 04:40 88 105/44 L 03/28/19 04:20 88 101/46 L 03/28/19 04:15 37.5 C 86 03/28/19 04:00 82 117/51 L 03/28/19 03:40 82 100/47 L 03/28/19 03:22 79 94/43 L 03/28/19 03:03 78 95/40 L 03/28/19 02:40 78 98/42 L 03/28/19 02:20 75 112/40 L BP BP Pulse Ox 03/28/19 13:27 03/28/19 11:46 96/61 L 100 03/28/19 07:10 85/52 L 98 03/28/19 05:11 113/45 L 03/28/19 05:08 03/28/19 04:40 03/28/19 04:20 03/28/19 04:15 117/51 L 94 03/28/19 04:00 03/28/19 03:40 03/28/19 03:22 03/28/19 03:03 03/28/19 02:40 03/28/19 02:20
[2019-03-28] MEDS: HYDROmorphone INJ 2 MG/ML SYR/VIAL IV PRN (18:11)
[2019-03-28] MEDS: ATORVASTATIN 20 MG TAB PO SCH (20:08)
[2019-03-28] MEDS: PRAMIPEXOLE DIHYDROCHLO 0.25 MG TAB PO SCH (20:09)
[2019-03-28] MEDS: SERTRALINE HCL 50 MG TABLET PO SCH (20:09)
[2019-03-28] MEDS ORDERED: INSULIN GLARGINE SOLOSTAR 100 UNITS/ML 3 ML PEN SQ SCH (21:00)
[2019-03-28] MEDS: HYDROmorphone INJ 1 MG/ML SYRINGE IV PRN (21:28)
--- NOTE | 2019-03-28 21:34 | Infectious Disease Progress Nt ---
Date of Service March 28, 2019 Assessment & Plan (1) Osteomyelitis of hand, right, acute: 58-year-old female with end-stage renal disease on dialysis, with acute right hand infection with osteomyelitis and cellulitis now status post surgical debridement. Patient to continue on broad-spectrum antibiotics pending further culture results. Will follow. (2) Cellulitis of right hand: Subjective Patient seen in follow-up for severe right hand infection. Planing of severe pain in right index finger, vascular follow-up noted. Has thrombosis and stenosis of digital arteries on CT scanning, no surgical intervention planned. Continues on imipenem and vancomycin. Operative cultures are no growth to date. Review of Systems Review of Systems: All systems reviewed & are unremarkable except as noted in HPI & below Physical Exam Constitutional: WD/WN, vitals as above comfortable; no acute distress Eyes: PERRL, conjunctivae normal, anicteric sclerae ENMT: external ear and nose normal, oropharynx normal Neck: trachea midline, no thyromegaly neck nontender Respiratory: normal respiratory effort, lungs clear to auscultation normal percussion; no respiratory distress Cardiovascular: Rate/Rhythm: regular rate and regular rhythm Heart Sounds: normal S1 and normal S2; no gallop, no murmur and no cardiac rub Gastrointestinal (Abdomen): normal bowel sounds, soft, nontender, no hepatosplenomegaly Musculoskeletal: no cyanosis or clubbing, extremities motor strength 5/5 Skin: no rashes Cyanotic index finger right hand Neurologic: moves all extremities and awake; no focal motor deficits Motor/Sensory: no sensory deficit Psychiatric: A+Ox3, euthymic affect Lymphatic: no cervical or axillary lymphadenopathy no inguinal lymphadenopathy Results & Data Vital Signs (Past 12 Hours) Vital Signs Temp Pulse Pulse Resp BP BP Pulse Ox 03/28/19 20:58 83 03/28/19 20:16 99/62 L 03/28/19 19:20 37.0 C 76 20 100 03/28/19 13:27 91 H 03/28/19 11:46 36.9 C 96 H 20 96/61 L 100 Laboratory Results Short CBC 03/28/19 Range/Units 08:53 WBC 13.80 H (4.8-10.8) K/uL Hgb 8.8 L (12.0-16.0) g/dL Hct 26.8 L (37-47) % Plt Count 286 (130-400) K/uL BMP 03/27/19 03/28/19 23:14 08:53 Sodium 131 L 130 L Potassium 5.2 H D 4.5 Chloride 95 L 93 L Carbon Dioxide 24 28 BUN 72 H 26 H D Creatinine 9.46 H* 4.60 H* D Glucose 180 H 119 H Calcium 9.1 9.0 Diagnostic Findings Microbiology 03/26/19 17:44 Hand,Right Gram Stain - Final 03/26/19 17:44 Hand,Right Aerobic and Anaerobic Culture - Preliminary No growth to date. 03/26/19 17:44 Hand,Right Gram Stain - Final 03/26/19 17:44 Hand,Right Aerobic and Anaerobic Culture - Preliminary Corynebacterium species 03/24/19 23:36 Blood Blood Culture - Preliminary No growth to date. 03/24/19 21:42 Blood Blood Culture - Preliminary No growth to date. cc: ~ CT ANGIOGRAM OF THE RIGHT HAND CLINICAL HISTORY: Osteomyelitis with recent surgery. Ischemia and discoloration of the second finger. COMPARISON STUDY: CT scan of the right hand dated 03/25/2019. TECHNIQUE: Following the IV administration of 119 cc of Optiray 320, CT angiogram of the right hand is performed from the distal radius and ulna to the fingertips. Images are reviewed in the axial, sagittal common carotid. 3-D MIPS images are created and assessed. A dose lowering technique was utilized adhering to the principles of ALARA. The examination is degraded by inability to properly position the patient. CT DOSE: 91.22 mGy.cm FINDINGS: There is advanced atherosclerotic plaque and irregularity seen throughout the r adial and ulnar arteries. The radial and ulnar arteries are patent, as is the interosseous artery in the wrist. Flow is maintained throughout the superficial and deep palmar arches. There is no flow identified within the digital artery along the radial aspect of the second finger. There is focal thrombosis of the proximal digital artery along the ulnar aspect of the second finger seen on axial image #188. There are scattered foci of reconstitution with thready flow in the mid to distal portions. There is also high-grade stenosis with near- complete to complete occlusion involving the digital artery along the ulnar aspect of the third finger, best seen on axial image #198. The digital arteries within the first, fourth, and fifth fingers appear maintained noting atherosclerotic irregularity. The skeletal structures are osteopenic. There is postoperative change consistent with osteotomy involving the head of the second metacarpal and the base of the second proximal phalanx. No acute fracture is identified. There is soft tissue edema and subcutaneous gas throughout the hand, greatest at the level of the second and third metacarpal heads. This is nonspecific given recent surgery. No organized fluid collection is seen to indicate abscess. A cutaneous defect at the operative site likely represents a surgical incision or wound. IMPRESSION: 1. There is advanced atherosclerotic plaque and irregularity seen throughout the regional arteries. 2. The radial and ulnar arteries are patent. There is flow shown within the superficial and deep palmar arches. 3. There is no flow identified within the digital artery along the radial aspect of the second finger. 4. There is thrombosis of the proximal digital artery along the ulnar aspect of the second finger. There are scattered foci of reconstitution with thready flow in the mid to distal portions of the artery. 5. There is moderate stenosis with near complete to complete occlusion involving the digital artery along the ulnar aspect of the third finger. 6. Postoperative change is seen at the second metacarpophalangeal joint as above. 7. Soft tissue edema and foci of subcutaneous gas within the hand are nonspecific and likely related to recent surgery. Correlate clinically for evidence of cellulitis. 8. There is no organized fluid collection to suggest abscess. Electronically signed by: Augustus Madrid M.D. 03/28/2019 12:02 PM Dictated: 03/28/19 1139 Transcribed: 03/28/19 1200
[2019-03-29] MEDS: HYDROmorphone INJ 1 MG/ML SYRINGE IV PRN ×4 (01:51→21:36)
[2019-03-29] MEDS: IMIPENEM/CILASTATIN SODIUM 200 MG in DEXTROSE 5% 100 ML IV SCH ×4 (03:58→21:47)
[2019-03-29] MEDS: NITROGLYCERIN 2% OINTMENT 30GM TUBE EXT SCH ×2 (05:20→14:20)
[2019-03-29] MEDS: LEVOTHYROXINE SODIUM 50 MCG TABLET PO SCH (05:21)
[2019-03-29] MEDS: LEVOTHYROXINE SODIUM 200 MCG TABLET PO SCH (05:21)
[2019-03-29 06:33] LABS: Hemoglobin 7.7 g/dL (12.0-16.0); Mean Corpuscular Hgb Conc 32.1 g/dL (32-36); Mean Corpuscular Volume 99.2 fL (80-100); Mean Platelet Volume 9.7 fL (7.4-10.4); Platelet Count 268 K/uL (130-400); RDW Coefficient of Variation 14.1 % (11.5-14.5); Red Blood Count 2.42 M/uL (4.2-5.4); White Blood Count 10.44 K/uL (4.8-10.8)
[2019-03-29 06:43] LABS: Prothrombin Time 28.6 Seconds (9.0-12.0)
[2019-03-29 07:30] LABS: BUN Creatinine Ratio 5.6 (10-20); Calcium 8.7 mg/dl (8.5-10.1); Creatinine Clr Calc Pharmacy 10.8 ml/min; Est GFR (African American) 7.2; Est GFR (Non-African American) 6.2; Magnesium 2.4 mg/dl (1.8-2.4); Phosphorus 5.6 mg/dl (2.5-4.9); Potassium 4.5 mmol/L (3.5-5.1)
[2019-03-29] MEDS: HYDROmorphone INJ 2 MG/ML SYR/VIAL IV PRN (07:55)
[2019-03-29] MEDS: BUMETANIDE 1 MG TAB PO SCH (09:08)
[2019-03-29] MEDS: CLOPIDOGREL BISULFATE 75 MG TAB PO SCH (09:08)
[2019-03-29] MEDS: METOPROLOL TARTRATE 25 MG TAB PO SCH ×2 (09:08→20:18)
[2019-03-29] MEDS: CHOLECALCIFEROL 1,000 UNITS TAB PO SCH (09:08)
[2019-03-29] MEDS: SEVELAMER HCL 800 MG TABLET PO SCH ×3 (09:09→17:32)
[2019-03-29] MEDS: CALCIUM CARBONATE 500 MG CHEWABLE TAB PO SCH ×3 (09:09→17:32)
[2019-03-29] MEDS: POLYETHYLENE (MIRALAX) 17 GM PACK PO SCH (09:09)
[2019-03-29] MEDS: INSULIN ASPART 100 UNITS/ML 3 ML PEN SC SCH ×4 (09:10→21:39)
--- NOTE | 2019-03-29 09:26 | Pharmacy Report ---
Pharmacy Abx Dose Short Note - Date of Service March 29, 2019 - Assessment & Plan Assessment 58 year old F receiving vancomycin/primaxin for treatment of osteomyelitis Day # 6 of antimicrobial therapy. ID also following consult. Plan Vancomycin * Trough level therapeutic at 16.5 mcg/ml (goal 15-20 mcg/ml for osteomyelitis) * Patient scheduled for dialysis tomorrow (no dialysis today) ; anticipate ~30% removal from dialysis tomorrow bringing current vancomycin level <15 mcg/ml which will be subtherapeutic * Therefore, will give small vancomycin dose today of 500 mg x 1 to hopefully avoid subtherapeutic level tomorrow and to maintain level >15 mcg/ml * Will plan to reorder random vancomycin level tomorrow am prior to dialysis to determine if dose after dialysis is warranted Primaxin * 200 mg iv q 6 hrs - appropriate for patient's on intermittent HD Pharmacy will continue to follow and will adjust dose/frequency as necessary. Thank you.
--- NOTE | 2019-03-29 09:51 | Nephrology Progress Note ---
Date of Service March 29, 2019 Assessment & Plan (1) End-stage renal disease on hemodialysis: -- HD TTS (@ [facility]) -- BP chronically low but acceptable -- Volume status appropriate -- AVF with thrill and bruit -- Medications appropriate for kidney function -- Renal diet (2) Cellulitis of right hand: -- Culture growing corynebacterium -- ID following (3) Anemia: -- Epogen [id number] given on 03/27/20 (4) Secondary hyperparathyroidism of renal origin: (5) Hyperkalemia: -- Improved with HD -- Low potassium diet -- Monitor metabolic profile QAM Subjective No acute events overnight. Kortney continues to struggle with pain. She denies any fevers or chills overnight. She is breathing comfortably. Appetite is good. She denies dyspnea. No signs of active bleeding. Review of Systems Review of Systems: All systems reviewed & are unremarkable except as noted in HPI & below Physical Exam Constitutional: well developed and + obese; no acute distress Eyes: no scleral abnormality and no corneal abnormality ENMT: Mouth: no oral mucosal abnormality and oral mucous membranes not dry Neck: normal visual inspection and trachea midline Respiratory: no respiratory distress Auscultation: lungs clear to auscultation bilaterally Cardiovascular: Heart Sounds: normal S1 and normal S2 Gastrointestinal (Abdomen): Inspection/Auscultation: normal bowel sounds Percussion/Palpation: abdomen soft; abdomen nontender Musculoskeletal: Extremities: + limited ROM of extremities and + muscle atrophy right hand with dressing intact Skin: + lesion and + ulcer; no rashes Neurologic: Motor/Sensory: no tremor and no asterixis Psychiatric: Affect: + flat affect Mood: + depressed mood Results & Data Vital Signs (Past 12 Hours) Vital Signs Temp Pulse Pulse Resp BP Pulse Ox 03/29/19 07:18 37.3 C 83 19 84/49 L 99 03/29/19 03:36 37.0 C 89 21 90/40 L 98 03/28/19 23:03 108/54 L 03/28/19 22:49 37.3 C 81 20 93 Laboratory Results Laboratory Results - last 24 hr 03/28/19 03/28/19 03/28/19 10:40 11:44 16:54 WBC RBC Hgb Hct MCV MCH MCHC RDW Std Deviation RDW Coeff of Tommy Plt Count MPV PT INR Sodium Potassium Chloride Carbon Dioxide Anion Gap BUN Creatinine Est Cr Clr Drug Dosing Est GFR ( Amer) Est GFR (Non-Af Amer) BUN/Creatinine Ratio Glucose POC Glucose 124 H 151 H Calcium Phosphorus Magnesium Random Vancomycin 16.2 03/28/19 03/29/19 03/29/19 20:06 06:00 06:00 WBC 10.44 RBC 2.42 L Hgb 7.7 L Hct 24.0 L MCV 99.2 MCH 31.8 MCHC 32.1 RDW Std Deviation 51.0 H RDW Coeff of Tommy 14.1 Plt Count 268 MPV 9.7 PT 28.6 H INR 3.0 H Sodium Potassium Chloride Carbon Dioxide Anion Gap BUN Creatinine Est Cr Clr Drug Dosing Est GFR ( Amer) Est GFR (Non-Af Amer) BUN/Creatinine Ratio Glucose POC Glucose 177 H Calcium Phosphorus Magnesium Random Vancomycin 03/29/19 03/29/19 03/29/19 06:00 06:00 07:16 WBC RBC Hgb Hct MCV MCH MCHC RDW Std Deviation RDW Coeff of Tommy Plt Count MPV PT INR Sodium 128 L Potassium 4.5 Chloride 93 L Carbon Dioxide 27 Anion Gap 8.0 BUN 37 H Creatinine 6.61 H* D Est Cr Clr Drug Dosing 10.8 Est GFR ( Amer) 7.2 Est GFR (Non-Af Amer) 6.2 BUN/Creatinine Ratio 5.6 L Glucose 167 H POC Glucose 184 H Calcium 8.7 Phosphorus 5.6 H Magnesium 2.4 Random Vancomycin 16.5
[2019-03-29] MEDS: HYDROCODONE/ACETAMOPHEN 5/325MG TAB PO PRN ×2 (10:17→18:59)
[2019-03-29] MEDS ORDERED: VANCOMYCIN HCL 500 MG in 0.9 % SODIUM CHLORIDE 100 ML IV ONE (12:00)
--- NOTE | 2019-03-29 13:13 | Pharmacy Report ---
Pharmacy Glycemic Short Note 2 - Date of Service March 29, 2019 - Glycemic Short BSG Results (Last 24 hours): 03/28/19 03/28/19 03/28/19 11:44 16:54 20:06 Glucose POC Glucose 124 H 151 H 177 H 03/29/19 03/29/19 03/29/19 06:00 07:16 11:14 Glucose 167 H POC Glucose 184 H 180 H ASSESSMENT: 5-6: * Patient received total of 15 units of insulin yesterday, of which 10 units were basal insulin * Insulin needs are increasing as patient's PO intake is increasing (increasing very slowly / improved more today) * Fasting slightly elevated at 167 mg/dL - will plan to tighten CR since diet improving * Will continue Lantus this evening with scale adjustment for increase diet PLAN FOR INPATIENT GLYCEMIC CONTROL: * Basal insulin: * Lantus HS per scale * Lantus 10-12 units SQ HS tonight- dosing based on BSG >180 mg/dl * Bolus insulin - tighten * NovoLog per scale ACHS or Q6hrs while NPO * Goal Range: Low 110 mg/dL - High 140 mg/dL * Correction Factor: 25 mg/dL/unit * Nutritional / Prandial insulin per carb ratio of 1 unit per 7 grams CHO consumed
--- NOTE | 2019-03-29 13:47 | Orthopedic Progress Note ---
Date of Service March 29, 2019 Assessment & Plan (1) Osteomyelitis of hand, right, acute: POD #3 s/p Amputation right 2nd metacarpal head, amputation partial 2nd proximal phalanx; Incision and Drainage abscess dorsal right hand x2 separate incisions/locations; Debridement 2nd extensor tendon; tenosynovectomy of 2nd and 3rd extensors; partial fasciectomy dorsal hand. Dr Izaguirre to see patient today. Question possibility for further surgery per Dr Izaguirre or Dr Colon Subjective Pt awake,alert. Just finished eating lunch. C/O right hand pain off and on. Also states that "Can you fix my back too? It's been hurting for some time." No other complaints. Physical Exam Physical Exam: Dressing removed from right hand. Suture line intact on 3rd finger wound. Wound itself has some mild duskiness to it. No overt drainage. The wound over the 2nd finger has more serous drainage with what looks like some slight purulunce in the open portion of the wound. Remainder of wound is loosely closed due to nature of infection. The second finger itself is a dusky purple color. Eschar noted over the web space between the second and third finger. Third finger with better color and slow cap refill around 2 seconds. Fingers very tender to the touch. Wounds redressed. Results & Data Vital Signs (Past 12 Hours) Vital Signs Temp Pulse Pulse Resp BP Pulse Ox 03/29/19 12:08 37.0 C 83 18 86/47 L 97 03/29/19 07:18 37.3 C 83 19 84/49 L 99 03/29/19 03:36 37.0 C 89 21 90/40 L [address] ANGIOGRAM OF THE RIGHT HAND CLINICAL HISTORY: Osteomyelitis with recent surgery. Ischemia and discoloration of the second finger. COMPARISON STUDY: CT scan of the right hand dated 03/25/2019. TECHNIQUE: Following the IV administration of 119 cc of Optiray 320, CT angiogram of the right hand is performed from the distal radius and ulna to the fingertips. Images are reviewed in the axial, sagittal common carotid. 3-D MIPS images are created and assessed. A dose lowering technique was utilized adhering to the principles of ALARA. The examination is degraded by inability to properly position the patient. CT DOSE: 91.22 mGy.cm FINDINGS: There is advanced atherosclerotic plaque and irregularity seen throughout the radial and ulnar arteries. The radial and ulnar arteries are patent, as is the interosseous artery in the wrist. Flow is maintained throughout the superficial and deep palmar arches. There is no flow identified within the digital artery along the radial aspect of the second finger. There is focal thrombosis of the proximal digital artery along the ulnar aspect of the second finger seen on axial image #188. There are scattered foci of reconstitution with thready flow in the mid to distal portions. There is also high-grade stenosis with near- complete to complete occlusion involving the digital artery along the ulnar aspect of the third finger, best seen on axial image #198. The digital arteries within the first, fourth, and fifth fingers appear maintained noting atherosclerotic irregularity. The skeletal structures are osteopenic. There is postoperative change consistent with osteotomy involving the head of the second metacarpal and the base of the second proximal phalanx. No acute fracture is identified. There is soft tissue edema and subcutaneous gas throughout the hand, greatest at the level of the second and third metacarpal heads. This is nonspecific given recent surgery. No organized fluid collection is seen to indicate abscess. A cutaneous defect at the operative site likely represents a surgical incision or wound. IMPRESSION: 1. There is advanced atherosclerotic plaque and irregularity seen throughout the regional arteries. 2. The radial and ulnar arteries are patent. There is flow shown within the superficial and deep palmar arches. 3. There is no flow identified within the digital artery along the radial aspect of the second finger. 4. There is thrombosis of the proximal digital artery along the ulnar aspect of the second finger. There are scattered foci of reconstitution with thready flow in the mid to distal portions of the artery. 5. There is moderate stenosis with near complete to complete occlusion involving the digital artery along the ulnar aspect of the third finger. 6. Postoperative change is seen at the second metacarpophalangeal joint as above. 7. Soft tissue edema and foci of subcutaneous gas within the hand are nonspecific and likely related to recent surgery. Correlate clinically for evidence of cellulitis. 8. There is no organized fluid collection to suggest abscess.
[2019-03-29] MEDS ORDERED: WARFARIN SOD 2.5 MG TAB PO SCH (16:00)
--- NOTE | 2019-03-29 19:05 | Infectious Disease Progress Nt ---
Date of Service March 29, 2019 Assessment & Plan (1) Osteomyelitis of hand, right, acute: 58-year-old female with end-stage renal disease on dialysis, with acute right hand infection with osteomyelitis and cellulitis now status post surgical debridement. Patient to continue on broad-spectrum antibiotics pending further culture results. Will follow. Subjective Patient seen in follow-up for right hand infection. Still with significant pain. Remains afebrile. Operative cultures unrevealing. Review of Systems Review of Systems: All systems reviewed & are unremarkable except as noted in HPI & below Physical Exam Constitutional: WD/WN, vitals as above comfortable; no acute distress Eyes: PERRL, conjunctivae normal, anicteric sclerae ENMT: external ear and nose normal, oropharynx normal Neck: trachea midline, no thyromegaly neck nontender Respiratory: normal respiratory effort, lungs clear to auscultation normal percussion; no respiratory distress Cardiovascular: Rate/Rhythm: regular rate and regular rhythm Heart Sounds: normal S1 and normal S2; no gallop, no murmur and no cardiac rub Gastrointestinal (Abdomen): normal bowel sounds, soft, nontender, no hepatosplenomegaly Musculoskeletal: no cyanosis or clubbing, extremities motor strength 5/5 Skin: no rashes Neurologic: moves all extremities and awake; no focal motor deficits Motor/Sensory: no sensory deficit Psychiatric: A+Ox3, euthymic affect Lymphatic: no cervical or axillary lymphadenopathy no inguinal lymphadenopathy Results & Data Vital Signs (Past 12 Hours) Vital Signs Temp Pulse Pulse Resp BP Pulse Ox 03/29/19 18:26 37.3 C 80 20 96/61 L 97 03/29/19 15:33 37.2 C 81 20 96/60 L 97 03/29/19 12:08 37.0 C 83 18 86/47 L 97 03/29/19 07:18 37.3 C 83 19 84/49 L 99 Laboratory Results Short CBC 03/29/19 Range/Units 06:00 WBC 10.44 (4.8-10.8) K/uL Hgb 7.7 L (12.0-16.0) g/dL Hct 24.0 L (37-47) % Plt Count 268 (130-400) K/uL BMP 03/29/19 06:00 Sodium 128 L Potassium 4.5 Chloride 93 L Carbon Dioxide 27 BUN 37 H Creatinine 6.61 H* D Glucose 167 H Calcium 8.7 Diagnostic Findings Microbiology 03/26/19 17:44 Hand,Right Gram Stain - Final 03/26/19 17:44 Hand,Right Aerobic and Anaerobic Culture - Preliminary Corynebacterium species 03/26/19 17:44 Hand,Right Gram Stain - Final 03/26/19 17:44 Hand,Right Aerobic and Anaerobic Culture - Preliminary No growth to date. 03/24/19 23:36 Blood Blood Culture - Preliminary No growth to date. 03/24/19 21:42 Blood Blood Culture - Preliminary No growth to date.
[2019-03-29] MEDS: INSULIN GLARGINE SOLOSTAR 100 UNITS/ML 3 ML PEN SQ SCH (21:40)
[2019-03-29] MEDS: SERTRALINE HCL 50 MG TABLET PO SCH (21:45)
[2019-03-29] MEDS: ATORVASTATIN 20 MG TAB PO SCH (21:45)
[2019-03-29] MEDS: PRAMIPEXOLE DIHYDROCHLO 0.25 MG TAB PO SCH (22:35)
--- NOTE | 2019-03-29 23:37 | Hospitalist Progress Note ---
Date of Service March 29, 2019 Assessment & Plan (1) Osteomyelitis of hand, right, acute: Diabetic hand infection. CT hand on 03/25 showed osteomyelitis. - Seen by vascular, ortho, and ID - Appreciate recs - Had extensive washout and debridement on 03/[address] Izaguirre - multiple abscesses, partial amputations of the second metacarpal head and second proximal phalanx - Follow up deep wound cultures after surgery -wound does not appear to be healing well, may need to fully amputate index finger or additional washout. - Continue vanc & imipenem/cilastatin (2) Ischemic finger: On 03/27, her right index finger became cool, mottled, and painful. I discussed this with Drs. Izaguirre, Derrick, and Isaiah, as well as a vascular surgeon from [place] in regards to any salvage therapy for the index finger. She was put on aspirin and Plavix. Heparin gtt was not done due to her INR being near therapeutic. Discussed calcium channel blockers or nitro, but it was not thought to be vasospasm-induced, so unlikely to help, and additionally her BP has been low-normal in the 90/60 range, so I do not think she would tolerate either therapy. Attempted to get u/s Dopplers of the hand arteries, but the tech could not get them through her dressing from the recent surgery. - CTA right hand on 03/28 showed: 1) flow in the radial, ulnar, superficial palmar, and deep palmar arteries 2) no flow within the digital artery along the radial aspect of the second finger 3) thrombosis of the proximal digital artery along the ulnar aspect of the second finger 4) moderate stenosis with near complete to complete occlusion involving the digital artery along the ulnar aspect of the third finger Given her extensive artherosclerotic disease seen on the CTA and her recent significant surgery, there are no viable surgical options for the ischemic right index finger. In discussion with the surgeons, medical therapy is all that's possible for now. (3) Cellulitis: Right hand and arm. - Plan as above (4) End-stage renal disease on hemodialysis: On admission - K+ up to 6.8. - S/p HD on 03/25 - Continue Bumex & sevelamer - On 03/27, K+ was back up to 6.3; possibly from tissue breakdown. - HD failed on 03/27 in the AM; U/s showed patent AV fistula. AVF infiltrated a second time in the evening. - On 03/27 at ~10pm, she had an urgent femoral HD line placed by pulm/cc - Underwent HD overnight of 03/27-03/28 - Appreciate nephrology recs - Plan for HD on Friday if K+ remains normal. -Potassium normal on 03/29 (5) Anemia: Anemia of chronic disease and CKD. - Baseline hgb ~11; on 03/25 was 10.0. Hgb 8.8 on 03/28, but stable from 03/27. - Monitor hgb (6) Atrial fibrillation: History of atrial fibrillation and CVA. Chads-Vasc of 6, making her a high-risk candidate. - Rate-controlled with metoprolol 25mg PO BID - Anticoagulation with warfarin - On presentation, her INR was 8.3 for which she received vitamin K 5mg IV x 1. - On 03/25, her INR was down to 2.0. On 03/26, INR was 1.4. - Monitor INR; restarted warfarin after surgery. - Held warfarin on 03/28, as her INR was rising quickly - Will likely need lower dose given her poor PO intake (7) Diabetes: A1c of 9.7% on 03/25. - Continue basal bolus insulin with sliding scale coverage - Glycemic pharmacist consult (8) Hypothyroidism: TSH was 0.2 on 03/26 with normal FT4. No signs/symptoms of hypo- /hyperthyroidism. - Continue home Synthroid 250 mcg - Will not change dose in setting of acute illness. (9) Restless leg syndrome: No current symptoms. - Continue ropinerole QHS (10) DVT prophylaxis: SCDs - INR is 3.0 on 03/29 Spent 35 minutes in management of patient. Transferred to medical floor. Subjective Patient is sitting upright trying to eat. Shd states overall she feels better. However, her affected hand continues to have pain and the affected finger continues to be swollen. Patient reports that she is praying that her hand improves. D/W ortho: there is a possiblity that finger may need to be amputated. D/W tele clerks, no arrythmia on monitor Review of Systems Review of Systems: All systems reviewed & are unremarkable except as noted in HPI & below Physical Exam Physical Exam: Constitutional: WD/WN, vitals as above Respiratory: normal respiratory effort; no respiratory distress Cardiovascular: Rate/Rhythm: regular rate and regular rhythm Gastrointestinal (Abdomen): normal bowel sounds, soft, nontender, no hepatosplenomegaly Skin: + induration (Right hand. Index finger mottled.) Neurologic: normal touch/pain/proprioception and CN's II-XI intact bilaterally Psychiatric: Orientation: alert and oriented x 3 Results & Data Vital Signs (Past 12 Hours) Vital Signs Temp Pulse Pulse Resp BP Pulse Ox 03/29/19 19:14 37.4 C 80 16 103/55 L 98 03/29/19 18:26 37.3 C 80 20 96/61 L 97 03/29/19 15:33 37.2 C 81 20 96/60 L 97 03/29/19 12:08 37.0 C 83 18 86/47 L 97
[2019-03-30] MEDS: HYDROmorphone INJ 1 MG/ML SYRINGE IV PRN ×8 (02:06→19:37)
[2019-03-30] MEDS: IMIPENEM/CILASTATIN SODIUM 200 MG in DEXTROSE 5% 100 ML IV SCH ×3 (04:08→21:46)
[2019-03-30] MEDS: LEVOTHYROXINE SODIUM 200 MCG TABLET PO SCH (06:37)
[2019-03-30] MEDS: LEVOTHYROXINE SODIUM 50 MCG TABLET PO SCH (06:38)
[2019-03-30] MEDS ORDERED: SODIUM CHLORIDE 0.9% 1000ML 1,000 ML IV PRN (07:00)
[2019-03-30 07:22] LABS: Creatinine Clr Calc Pharmacy 8.7 ml/min; Est GFR (African American) 5.6; Est GFR (Non-African American) 4.8
[2019-03-30] MEDS: CLOPIDOGREL BISULFATE 75 MG TAB PO SCH (08:37)
[2019-03-30] MEDS: CALCIUM CARBONATE 500 MG CHEWABLE TAB PO SCH ×3 (08:37→18:40)
[2019-03-30] MEDS: CHOLECALCIFEROL 1,000 UNITS TAB PO SCH (08:37)
[2019-03-30] MEDS: ASPIRIN 81 MG ECTAB PO SCH (08:37)
[2019-03-30] MEDS: BUMETANIDE 1 MG TAB PO SCH (08:38)
[2019-03-30] MEDS: SEVELAMER HCL 800 MG TABLET PO SCH ×3 (08:38→18:41)
[2019-03-30] MEDS: METOPROLOL TARTRATE 25 MG TAB PO SCH ×2 (08:39→21:54)
[2019-03-30] MEDS: POLYETHYLENE (MIRALAX) 17 GM PACK PO SCH (08:39)
[2019-03-30] MEDS: INSULIN ASPART 100 UNITS/ML 3 ML PEN SC SCH ×4 (08:41→21:56)
--- NOTE | 2019-03-30 09:17 | Pharmacy Report ---
Pharm Abx/Gly Prg Nt - Date of Service March 30, 2019 - Scope Pharmacy has been consulted to manage vancomycin dosing and glycemic control for this patient as per the Pharmacy & Therapeutics Committee approved dosing protocols. - Objective Vital Signs (Past 12hrs): Vital Signs Temp Pulse Resp BP BP Pulse Ox 03/30/19 07:36 36.9 C 84 16 94/57 L 96 03/29/19 23:40 37.1 C 82 18 110/65 95 Lab Results: Laboratory Tests (24 Hours) 03/30/19 03/30/19 05:54 05:54 Creatinine 8.21 H* D Est Cr Clr Drug Dosing 8.7 Random Vancomycin 20.1 Micro Results: 03/26/19 17:44 Gram Stain - Final Hand,Right 03/24/19 23:36 Blood Culture - Final Blood No growth 03/24/19 21:42 Blood Culture - Final Blood No growth 03/26/19 17:44 Gram Stain - Final Hand,Right Accuchecks BSG (last 24 hours):: 03/29/19 03/29/19 03/29/19 11:14 16:15 20:24 POC Glucose 180 H 189 H 222 H 03/30/19 07:58 POC Glucose 206 H HbA1C: Hemoglobin A1c 9.7 % (4.5-5.6) H 03/25/19 07:33 - Outpatient Anti-Diabetic Regimen Recent Pertinent Medications: Outpatient Anti-diabetic Regimen: * Lantus 20 units BID * Humalog w/ meals: * A1c result is likely somewhat unreliable in ESRD patients d/t interactions between the A1c analyzing technique and high levels of urea in ESRD, reduced RBC life span, iron deficiency anemia, and EPO administration. HbA1c > 7.5% in ESRD patient may overestimate the extent of hyperglycemia in ESRD patients. The patient is currently receiving: * Basal insulin: Lantus 10-12 units every 24 hours * Correctional Insulin: Novolog Correction per scale ACHS Goal Range: Low 110 mg/dL - High 140 mg/dL Correction Factor: 25 mg/dL/unit * Prandial insulin: Per carb ratio of 1 unit per 8 grams CHO consumed Risk Factors for Insulin Resistance: * Infection: on vancomycin and Primaxin * Recent Surgery: POD 2 s/p finger amputation * Diet: type 2 diabetes -> will be NPO after midnight tonight - Assessment & Plan Assessment: ID: * 58 year old F receiving vancomycin and imipenem for treatment of hand osteomyelitis. ID is consulted. * Day # 7 of inpatient antimicrobial therapy * Pre-HD level is 20.1. This is slightly supratherapeutic but I anticipate this decreasing with HD today. Glycemic: * She received 27 units of insulin yesterday with BSGs starting to increase with increased po intake * She will now be NPO after midnight tonight so will continue the same scale for basal insulin instead of increasing further at this time * Will instead tighten correctional insulin to provide additional coverage for high BSGs Plan: ANTIMICROBIAL THERAPY Vancomycin * Pre-HD level of 20.1 mcg/mL is slightly supratherapeutic, but anticipate this falling with dialysis removing a portion of it * Give additional 500 mg x 1 tonight * Goal level: 15 to 20 mcg/mL * Random level ordered for: 04/01/19 w/ AM labs, prior to next HD session INPATIENT GLYCEMIC CONTROL * Continue to hold outpatient oral diabetes medications Basal Insulin - no change * Lantus 10-12 units SQ HS Bolus Insulin - tighten CF only * NovoLog per scale ACHS or Q6hrs while NPO * Goal Range: Low 110 mg/dL - High 140 mg/dL * Correction Factor: 20 mg/dL/unit * Nutritional / Prandial insulin per carb ratio of 1 unit per 7 grams CHO consumed * Please note that the plan above was derived based on current level of insulin resistance and hospital stress. These recommendations are appropriate for inpatient admission only. Plan of care upon discharge will need to be reassessed to avoid potential outpatient hypo/hyperglycemia. Pharmacy will follow patient and adjust orders on a daily basis. Thank you for allowing us to participate in this patients care.
[2019-03-30 10:18] LABS: Basophils # (auto) 0.03 K/uL (0-0.2); Basophils % (auto) 0.3 %; Eosinophils # (auto) 0.09 K/uL (0-0.5); Eosinophils % (auto) 0.8 %; Hematocrit (blood only) 24.3 % (37-47); Hemoglobin 7.8 g/dL (12.0-16.0); Immature Granulocytes # (auto) 0.14 K/uL (0.00-0.02); Immature Granulocytes % (auto) 1.3 %; Lymphocytes # (auto) 1.35 K/uL (1.2-3.4); Lymphocytes % (auto) 12.2 %; Mean Corpuscular Hgb Conc 32.1 g/dL (32-36); Mean Corpuscular Volume 97.6 fL (80-100); Monocytes # (auto) 0.83 K/uL (0.11-0.59); Monocytes % (auto) 7.5 %; Neutrophils % (auto) 77.9 %; Platelet Count 298 K/uL (130-400); RDW Standard Deviation 49.6 fL (36.4-46.3); Red Blood Count 2.49 M/uL (4.2-5.4); White Blood Count 11.04 K/uL (4.8-10.8)
[2019-03-30 10:22] LABS: Hepatitis B Surface Antigen Neg (Neg)
[2019-03-30 10:26] LABS: Hepatitis B Surface Antibody Immune
--- NOTE | 2019-03-30 10:30 | Nephrology Progress Note ---
Date of Service March 30, 2019 Assessment & Plan (1) End-stage renal disease on hemodialysis: -- HD TTS, orders entered into EMR and reviewed with nurse -- UF goal 2 L -- Qb adequate -- BP chronically low but acceptable -- AVF with very weak thrill and poor bruit, remains significantly ecchymotic and tender, not able to be used for HD today -- Femoral catheter used for treatment -- Doppler of AVF reviewed -- Will discuss possible TDC placement with vascular surgery while AVF rests -- Medications appropriate for kidney function -- Renal diet (2) Cellulitis of right hand: -- Culture growing corynebacterium -- ID following (3) Anemia: -- Epogen [id number] given on 03/27/20 (4) Secondary hyperparathyroidism of renal origin: (5) Hyperkalemia: -- Improved with HD -- Low potassium diet -- Monitor metabolic profile QAM Subjective Patient seen and evaluated this morning and then re-evaluated during hemodialysis. She continues to struggle with significant pain in her right arm and hand. The AVF was not able to be used for hemodialysis today. Qb adequate via femoral catheter. BP acceptable. Kortney is very frustrated and anxious. She is concerned about returning to the OR tomorrow. Review of Systems Review of Systems: All systems reviewed & are unremarkable except as noted in HPI & below Physical Exam Constitutional: well developed and + obese; no acute distress Eyes: no scleral abnormality and no corneal abnormality ENMT: Mouth: no oral mucosal abnormality and oral mucous membranes not dry Neck: normal visual inspection and trachea midline Respiratory: no respiratory distress Auscultation: lungs clear to auscultation bilaterally Cardiovascular: Heart Sounds: normal S1 and normal S2 Extremities: + AV fistula (weak thrill and bruit, significant ecchymosis, tender to palpation) Gastrointestinal (Abdomen): Inspection/Auscultation: normal bowel sounds Percussion/Palpation: abdomen soft; abdomen nontender Musculoskeletal: Extremities: + limited ROM of extremities and + muscle atrophy R femoral HD catheter Skin: + lesion and + ulcer; no rashes Neurologic: Motor/Sensory: no tremor and no asterixis Psychiatric: Affect: + flat affect Mood: + depressed mood Results & Data Vital Signs (Past 12 Hours) Vital Signs Temp Pulse Resp BP BP Pulse Ox 03/30/19 07:36 36.9 C 84 16 94/57 L 96 05/06/19 23:40 37.1 C 82 18 110/65 95 Laboratory Results Laboratory Results - last 24 hr 03/29/19 03/29/19 03/29/19 11:14 16:15 20:24 WBC RBC Hgb Hct MCV MCH MCHC RDW Std Deviation RDW Coeff of Tommy Plt Count MPV Immature Gran % (Auto) Neut % (Auto) Lymph % (Auto) [place] % (Auto) Eos % (Auto) Baso % (Auto) Immature Gran # (Auto) Neut # (Auto) Lymph # (Auto) [place] # (Auto) Eos # (Auto) Baso # (Auto) Creatinine Est Cr Clr Drug Dosing Est GFR ( Amer) Est GFR (Non-Af Amer) POC Glucose 180 H 189 H 222 H Random Vancomycin Hep Bs Antigen Hep Bs Antibody Hep Bs Antibody, Quant 03/30/19 03/30/19 03/30/19 05:54 05:54 07:58 WBC RBC Hgb Hct MCV MCH MCHC RDW Std Deviation RDW Coeff of Tommy Plt Count MPV Immature Gran % (Auto) Neut % (Auto) Lymph % (Auto) [place] % (Auto) Eos % (Auto) Baso % (Auto) Immature Gran # (Auto) Neut # (Auto) Lymph # (Auto) [place] # (Auto) Eos # (Auto) Baso # (Auto) Creatinine 8.21 H* D Est Cr Clr Drug Dosing 8.7 Est GFR ( Amer) 5.6 Est GFR (Non-Af Amer) 4.8 POC Glucose 206 H Random Vancomycin 20.1 Hep Bs Antigen Hep Bs Antibody Hep Bs Antibody, Quant 03/30/19 03/30/19 08:18 08:21 WBC 11.04 H RBC 2.49 L Hgb 7.8 L Hct 24.3 L MCV 97.6 MCH 31.3 MCHC 32.1 RDW Std Deviation 49.6 H RDW Coeff of Tommy 14.0 Plt Count 298 MPV 10.0 Immature Gran % (Auto) 1.3 Neut % (Auto) 77.9 Lymph % (Auto) 12.2 Denali % (Auto) 7.5 Eos % (Auto) 0.8 Baso % (Auto) 0.3 Immature Gran # (Auto) 0.14 H Neut # (Auto) 8.60 H Lymph # (Auto) 1.35 Denali # (Auto) 0.83 H Eos # (Auto) 0.09 Baso # (Auto) 0.03 Creatinine Est Cr Clr Drug Dosing Est GFR ( Amer) Est GFR (Non-Af Amer) POC Glucose Random Vancomycin Hep Bs Antigen Neg Hep Bs Antibody Immune Hep Bs Antibody, Quant 19.86
--- NOTE | 2019-03-30 13:05 | Orthopedic Progress Note ---
Date of Service March 30, 2019 Assessment & Plan (1) Ischemic finger: Status post I&D left hand Postoperative day #4 IV antibiotics Primaxin per ID Nonweightbearing left upper extremity Patient on Plavix and 81 mg aspirin daily Likely require repeat irrigation debridement possible amputation of second digit left hand, n.p.o. after midnight, to be evaluated by Dr. Colon. Subjective Post Operative Progress Note Patient seen laying in bed undergoing hemodialysis, comfortable, denies complaints, pain well controlled, no acute issues. Review of Systems Review of Systems: All systems reviewed & are unremarkable except as noted in HPI & below Constitutional: as per Subjective / HPI Physical Exam Physical Exam: Left upper extremity neurovascular sensory intact, dressing clean dry and intact, second digit dusky appearance grossly Results & Data Vital Signs (Past 12 Hours) Vital Signs Temp Pulse Pulse Pulse Resp BP BP 03/30/19 12:40 85 81/43 L 03/30/19 12:20 78 112/44 L 03/30/19 12:00 80 101/32 L 03/30/19 11:40 79 103/43 L 03/30/19 11:20 76 102/58 L 03/30/19 11:00 75 97/53 L 03/30/19 10:40 82 104/43 L 03/30/19 10:20 86 82/37 L 03/30/19 10:00 94 H 87/37 L 03/30/19 09:40 75 101/47 L 03/30/19 09:20 67 109/49 L 03/30/19 09:10 36.9 C 72 03/30/19 07:36 36.9 C 84 16 94/57 L Pulse Ox 03/30/19 12:40 03/30/19 12:20 03/30/19 12:00 03/30/19 11:40 03/30/19 11:20 03/30/19 11:00 03/30/19 10:40 03/30/19 10:20 03/30/19 10:00 03/30/19 09:40 03/30/19 09:20 03/30/19 09:10 03/30/19 07:36 96
[2019-03-30] MEDS: HYDROCODONE/ACETAMOPHEN 5/325MG TAB PO PRN ×2 (14:19→19:20)
[2019-03-30] MEDS ORDERED: HYDROmorphone INJ 1 MG/ML SYRINGE IV STA (14:33)
--- NOTE | 2019-03-30 15:17 | Infectious Disease Progress Nt ---
Date of Service March 30, 2019 Assessment & Plan (1) Osteomyelitis of hand, right, acute: 58-year-old female with end-stage renal disease on dialysis, with acute right hand infection with osteomyelitis and cellulitis now status post surgical debridement. Patient to continue on broad-spectrum antibiotics pending further culture results from the OR tomorrow. Will follow. Subjective Patient is here to follow-up for right hand infection. Still complaining of severe pain. No fever. Plans for repeat debridement tomorrow noted. Cultures so far have only grown corynebacterium. Review of Systems Review of Systems: All systems reviewed & are unremarkable except as noted in HPI & below Physical Exam Constitutional: WD/WN, vitals as above comfortable; no acute distress Eyes: PERRL, conjunctivae normal, anicteric sclerae ENMT: external ear and nose normal, oropharynx normal Neck: trachea midline, no thyromegaly neck nontender Respiratory: normal respiratory effort, lungs clear to auscultation normal percussion; no respiratory distress Cardiovascular: Rate/Rhythm: regular rate and regular rhythm Heart Sounds: normal S1 and normal S2; no gallop, no murmur and no cardiac rub Gastrointestinal (Abdomen): normal bowel sounds, soft, nontender, no hepatosplenomegaly Musculoskeletal: no cyanosis or clubbing, extremities motor strength 5/5 Skin: no rashes Neurologic: moves all extremities and awake; no focal motor deficits Motor/Sensory: no sensory deficit Psychiatric: A+Ox3, euthymic affect Lymphatic: no cervical or axillary lymphadenopathy no inguinal lymphadenopathy Results & Data Vital Signs (Past 12 Hours) Vital Signs Temp Pulse Pulse Pulse Pulse Resp BP 03/30/19 14:00 37.1 C 84 18 03/30/19 13:29 36.9 C 86 03/30/19 13:20 86 119/53 L 03/30/19 13:00 78 109/53 L 03/30/19 12:40 85 81/43 L 03/30/19 12:20 78 112/44 L 03/30/19 12:00 80 101/32 L 03/30/19 11:40 79 103/43 L 03/30/19 11:20 76 102/58 L 03/30/19 11:00 75 97/53 L 03/30/19 10:40 82 104/43 L 03/30/19 10:20 86 82/37 L 03/30/19 10:00 94 H 87/37 L 03/30/19 09:40 75 101/47 L 03/30/19 09:20 67 109/49 L 03/30/19 09:10 36.9 C 72 03/30/19 07:36 36.9 C 84 16 BP BP Pulse Ox 03/30/19 14:00 117/87 95 03/30/19 13:29 122/43 L 03/30/19 13:20 03/30/19 13:00 03/30/19 12:40 03/30/19 12:20 03/30/19 12:00 03/30/19 11:40 03/30/19 11:20 03/30/19 11:00 03/30/19 10:40 03/30/19 10:20 03/30/19 10:00 03/30/19 09:40 03/30/19 09:20 03/30/19 09:10 03/30/19 07:36 94/57 L 96 Laboratory Results Short CBC 03/30/19 Range/Units 08:21 WBC 11.04 H (4.8-10.8) K/uL Hgb 7.8 L (12.0-16.0) g/dL Hct 24.3 L (37-47) % Plt Count 298 (130-400) K/uL BMP 03/30/19 05:54 Creatinine 8.21 H* D Diagnostic Findings Microbiology 03/26/19 17:44 Hand,Right Gram Stain - Final 03/26/19 17:44 Hand,Right Aerobic and Anaerobic Culture - Preliminary No growth to date. 03/26/19 17:44 Hand,Right Gram Stain - Final 03/26/19 17:44 Hand,Right Aerobic and Anaerobic Culture - Preliminary Corynebacterium species 03/24/19 23:36 Blood Blood Culture - Final No growth 03/24/19 21:42 Blood Blood Culture - Final No growth
[2019-03-30] MEDS ORDERED: Nursing to Pharmacy Communication ONE (15:47)
[2019-03-30] MEDS ORDERED: VANCOMYCIN HCL 500 MG in 0.9 % SODIUM CHLORIDE 100 ML IV ONE (20:00)
[2019-03-30] MEDS: SERTRALINE HCL 50 MG TABLET PO SCH (21:47)
[2019-03-30] MEDS: PRAMIPEXOLE DIHYDROCHLO 0.25 MG TAB PO SCH (21:48)
[2019-03-30] MEDS: ATORVASTATIN 20 MG TAB PO SCH (21:49)
[2019-03-30] MEDS: INSULIN GLARGINE SOLOSTAR 100 UNITS/ML 3 ML PEN SQ SCH (21:55)
--- NOTE | 2019-03-30 22:37 | Hospitalist Progress Note ---
Date of Service March 30, 2019 Assessment & Plan (1) Osteomyelitis of hand, right, acute: Diabetic hand infection. CT hand on 03/25 showed osteomyelitis. - Seen by vascular, ortho, and ID - Appreciate recs - Had extensive washout and debridement on 03/[address] Izaguirre - multiple abscesses, partial amputations of the second metacarpal head and second proximal phalanx - Follow up deep wound cultures after surgery -wound does not appear to be healing well, -Scheduled for amuptaion of index finger on 03/31 - Continue vanc & imipenem/cilastatin (2) Ischemic finger: On 03/27, her right index finger became cool, mottled, and painful. I discussed this with Drs. Izaguirre, Derrick, and Isaiah, as well as a vascular surgeon from [place] in regards to any salvage therapy for the index finger. She was put on aspirin and Plavix. Heparin gtt was not done due to her INR being near therapeutic. Discussed calcium channel blockers or nitro, but it was not thought to be vasospasm-induced, so unlikely to help, and additionally her BP has been low-normal in the 90/60 range, so I do not think she would tolerate either therapy. Attempted to get u/s Dopplers of the hand arteries, but the tech could not get them through her dressing from the recent surgery. - CTA right hand on 03/28 showed: 1) flow in the radial, ulnar, superficial palmar, and deep palmar arteries 2) no flow within the digital artery along the radial aspect of the second finger 3) thrombosis of the proximal digital artery along the ulnar aspect of the second finger 4) moderate stenosis with near complete to complete occlusion involving the digital artery along the ulnar aspect of the third finger Given her extensive artherosclerotic disease seen on the CTA and her recent significant surgery, there are no viable surgical options for the ischemic right index finger. In discussion with the surgeons, medical therapy is all that's possible for now. (3) Cellulitis: Right hand and arm. - Plan as above (4) End-stage renal disease on hemodialysis: On admission - K+ up to 6.8. - S/p HD on 03/25 - Continue Bumex & sevelamer - On 03/27, K+ was back up to 6.3; possibly from tissue breakdown. - HD failed on 05/04 in the AM; U/s showed patent AV fistula. AVF infiltrated a second time in the evening. - On 03/27 at ~10pm, she had an urgent femoral HD line placed by pulm/cc - Underwent HD overnight of 03/27-03/28 - Appreciate nephrology recs - Plan for HD on Friday if K+ remains normal. -Potassium normal on 03/29 (5) Anemia: Anemia of chronic disease and CKD. - Baseline hgb ~11; on 03/25 was 10.0. Hgb 8.8 on 03/28, but stable from 03/27. - Monitor hgb (6) Atrial fibrillation: History of atrial fibrillation and CVA. Chads-Vasc of 6, making her a high-risk candidate. - Rate-controlled with metoprolol 25mg PO BID - Anticoagulation with warfarin - On presentation, her INR was 8.3 for which she received vitamin K 5mg IV x 1. - On 03/25, her INR was down to 2.0. On 03/26, INR was 1.4. - Monitor INR; restarted warfarin after surgery. - Held warfarin on 03/28, as her INR was rising quickly - Will likely need lower dose given her poor PO intake (7) Diabetes: A1c of 9.7% on 03/25. - Continue basal bolus insulin with sliding scale coverage - Glycemic pharmacist consult (8) Hypothyroidism: TSH was 0.2 on 03/26 with normal FT4. No signs/symptoms of hypo- /hyperthyroidism. - Continue home Synthroid 250 mcg - Will not change dose in setting of acute illness. (9) Restless leg syndrome: No current symptoms. - Continue ropinerole QHS (10) DVT prophylaxis: SCDs - INR is 3.0 on 03/29 Spent 25 minutes in management of patient. Subjective 58 yo female reports she continues to have severe pain. She is concerned that they may need to take the finger off tomorrow. She is scheduled for surgery in AM. Patient reports feeling anxious and nervous for the procedure. Review of Systems Review of Systems: All systems reviewed & are unremarkable except as noted in HPI & below Physical Exam Physical Exam: Constitutional: WD/WN, vitals as above Respiratory: normal respiratory effort; no respiratory distress Cardiovascular: Rate/Rhythm: regular rate and regular rhythm Gastrointestinal (Abdomen): normal bowel sounds, soft, nontender, no hepatosplenomegaly Skin: + induration (Right hand. Index finger mottled.) Neurologic: normal touch/pain/proprioception and CN's II-XI intact bilaterally Psychiatric: Orientation: alert and oriented x 3 Results & Data Vital Signs (Past 12 Hours) Vital Signs Temp Pulse Pulse Pulse Resp BP BP 03/30/19 14:00 37.1 C 84 18 03/30/19 13:29 36.9 C 86 122/43 L 03/30/19 13:20 86 119/53 L 03/30/19 13:00 78 109/53 L 03/30/19 12:40 85 81/43 L 03/30/19 12:20 78 112/44 L 03/30/19 12:00 80 101/32 L 03/30/19 11:40 79 103/43 L 03/30/19 11:20 76 102/58 L 03/30/19 11:00 75 97/53 L 03/30/19 10:40 82 104/43 L BP Pulse Ox 03/30/19 14:00 117/87 95 03/30/19 13:29 03/30/19 13:20 03/30/19 13:00 03/30/19 12:40 03/30/19 12:20 03/30/19 12:00 03/30/19 11:40 03/30/19 11:20 03/30/19 11:00 03/30/19 10:40
[2019-03-31] MEDS: HYDROmorphone INJ 1 MG/ML SYRINGE IV PRN ×9 (00:25→22:41)
[2019-03-31] MEDS: IMIPENEM/CILASTATIN SODIUM 200 MG in DEXTROSE 5% 100 ML IV SCH ×4 (03:06→21:15)
[2019-03-31] MEDS ORDERED: Nursing to Pharmacy Communication ONE (04:30)
[2019-03-31] MEDS: LEVOTHYROXINE SODIUM 50 MCG TABLET PO SCH (05:28)
[2019-03-31] MEDS: LEVOTHYROXINE SODIUM 200 MCG TABLET PO SCH (05:28)
[2019-03-31] MEDS: INSULIN ASPART 100 UNITS/ML 3 ML PEN SC SCH ×3 (05:45→21:02)
[2019-03-31 07:03] LABS: Creatinine Clr Calc Pharmacy 13.7 ml/min; Est GFR (African American) 9.7; Est GFR (Non-African American) 8.3
--- NOTE | 2019-03-31 07:20 | XRay Report ---
XR hand RT 2V CLINICAL HISTORY: Right Hand Cellulitis COMPARISON: CT scan dated March 25, 2019 DISCUSSION: The study is limited from a positioning standpoint. There are destructive/postsurgical ch anges involving the second metatarsal head and base of the proximal phalanx of the second finger cons istent with osteomyelitis versus postsurgical resection. Vascular calcifications are evident. No acut e fractures are visualized. IMPRESSION: 1. Technically limited study from a positioning standpoint 2. Destructive/postsurgical changes involving the second metatarsal head and base of the proximal pha lanx of the second finger. The findings are consistent with postsurgical resection versus osteomyelit is. Correlation with prior surgical history is recommended. Electronically signed by: Fredis Dooley M.D. 03/31/2019 7:19 AM
[2019-03-31] MEDS: CHOLECALCIFEROL 1,000 UNITS TAB PO SCH (08:59)
[2019-03-31] MEDS: POLYETHYLENE (MIRALAX) 17 GM PACK PO SCH (09:00)
[2019-03-31] MEDS: ASPIRIN 81 MG ECTAB PO SCH (09:00)
[2019-03-31] MEDS: METOPROLOL TARTRATE 25 MG TAB PO SCH ×3 (09:00→22:17)
[2019-03-31] MEDS: CALCIUM CARBONATE 500 MG CHEWABLE TAB PO SCH ×3 (09:01→15:51)
[2019-03-31] MEDS: BUMETANIDE 1 MG TAB PO SCH (09:01)
[2019-03-31] MEDS: SEVELAMER HCL 800 MG TABLET PO SCH ×3 (09:01→15:51)
--- NOTE | 2019-03-31 09:51 | Anesthesiology Consultation ---
Date of Service March 31, 2019 Assessment & Plan Chart Review Chart Review: Acceptable Risk for Surgery and Patient NOT seen in Pre Admission Testing Consults Requested none ASA ASA4 Proposed Anesthesia Anesthesia Type: General Risk / Benefits Reviewed With: PT / POA / Parent / Guardian, Accepts Plan and Informed Consent Obtained Additional Notes Pt underwent dialysis yesterday. History Surgery Operation Date: 03/26/19 13:40 Proposed Procedures p Right Hand Incision and Drainage, - Henrik Izaguirre DO s with Possible 2nd Metatarsal Head Resection - Henrik Izaguirre DO Operation Date: 03/31/19 07:00 Proposed Procedures p Right Hand Incision and Drainage, - Juvecnio Colon MD s Right Index Finger Amputation - Juvencio Colon MD Operation Date: 04/02/19 10:55 Proposed Procedures p Insertion of Perm Catheter - Dayton Meza MD Height/Weight Height: 5 ft 3 in Weight: 109.6 kg Allergies Allergy/AdvReac Type Severity Reaction Status Date / Time oxycodone Allergy Intermediate HIVES,RASH Verified 03/24/19 16:46 Sulfa (Sulfonamide Allergy Intermediate HIVES,RASH Verified 03/24/19 16:46 Antibiotics) cephalexin Allergy Mild HIVES Verified 03/24/19 16:46 Penicillins Allergy Mild RASH Verified 03/24/19 16:46 Dyazide Allergy Unknown UNKNOWN Verified 05/08/18 11:24 hydrochlorothiazide Allergy Unknown UNKNOWN Verified 03/24/19 16:46 Sulfonylureas Allergy Unknown UNKNOWN Verified 03/24/19 16:46 triamterene Allergy Unknown UNKNOWN Verified 03/24/19 16:46 CARBONIC Allergy Unknown UNKNOWN Uncoded 03/24/19 16:46 Medications Home Medications Medication Instructions Recorded Confirmed Last Taken acetaminophen 1,000 mg PO Q6H PRN MDD 3 GRAMS/24 11/26/18 03/24/19 Unknown HOURS acetaminophen 650 mg PO Q6 PRN MDD 3 GRAMS/24 11/26/18 03/24/19 Unknown HOURS atorvastatin 20 mg PO HS 11/26/18 03/24/19 Unknown bisacodyl 5 mg PO DAILY PRN 11/26/18 03/24/19 Unknown bisacodyl 10 mg [place] DAILY PRN 11/26/18 03/24/19 Unknown bumetanide 2 mg PO DAILY 11/26/18 03/24/19 Unknown calcium carbonate [Tums] 400 mg PO AC 11/26/18 03/24/19 Unknown cholecalciferol (vitamin D3) 2,000 units PO DAILY 11/26/18 03/24/19 Unknown docusate sodium 100 mg PO BID PRN 11/26/18 03/24/19 Unknown hydrocodone-acetaminophen 1 tab PO Q6 PRN 11/26/18 03/24/19 Unknown insulin glargine [Lantus Solostar 20 units SUBCUT BID 11/26/18 03/24/19 Unknown U-100 Insulin] insulin lispro [Humalog U-100 7 units SUBCUT AMHS 11/26/18 03/24/19 Unknown Insulin] insulin lispro [Humalog U-100 9 units SUBCUT BID 11/26/18 03/24/19 Unknown Insulin] levothyroxine 50 mcg PO DAILY 11/26/18 03/24/19 Unknown levothyroxine 200 mcg PO DAILY 11/26/18 03/24/19 Unknown melatonin 3 mg PO HS PRN 11/26/18 03/24/19 Unknown metoprolol tartrate 25 mg PO BID 11/26/18 03/24/19 Unknown polyethylene glycol 3350 17 g PO DAILY 11/26/18 03/24/19 Unknown pramipexole 0.25 mg PO HS 11/26/18 03/24/19 Unknown sennosides [senna] 8.6 mg PO HS PRN 11/26/18 03/24/19 Unknown sertraline 37.5 mg PO HS 11/26/18 03/24/19 Unknown sevelamer carbonate 800 mg PO TIDM 11/26/18 03/24/19 Unknown sodium bicarbonate 650 mg PO 4XWK 11/26/18 03/24/19 Unknown warfarin 3 mg PO 4XWK 11/26/18 03/24/19 Unknown Selan Silver Protectant 1 applic TOPICAL BID 03/24/19 Unknown lidocaine-prilocaine 1 applic TOPICAL DIRECTED PRN 03/24/19 03/24/19 Unknown linezolid 600 mg PO Q12H 03/24/19 03/24/19 Unknown mupirocin 1 applic TOPICAL DAILY 03/24/19 03/24/19 Unknown tramadol 50 mg PO Q4 PRN 03/24/19 03/24/19 Unknown vancomycin 1 g IV DAILY 03/24/19 03/24/19 Unknown warfarin 32.5 mg PO 3XWK 03/24/19 03/24/19 Unknown Active Medications Generic Name Dose Route Start Last Admin Trade Name Freq PRN Reason Stop Dose Admin Hydrocodone Bitart/Acetaminophen 1 tab 03/26/19 18:53 03/30/19 19:20 [place] 5/325 PO 04/09/19 18:52 1 tab Q6 PRN Administration Pain Aspirin 81 mg 03/27/19 19:00 03/31/19 09:00 Ecotrin Ectab PO 04/26/19 18:59 Not Given DAILY DELANEY Atorvastatin Calcium 20 mg 03/24/19 21:00 03/30/19 21:49 Lipitor PO 04/23/19 20:59 20 mg HS DELANEY Administration Bumetanide 2 mg 03/25/19 09:00 03/31/19 09:01 Bumex PO 04/24/19 08:59 Not Given DAILY DELANEY Calcium Carbonate 1,000 mg 03/25/19 07:30 03/31/19 15:51 Tums PO 04/24/19 07:29 1,000 mg AC DELANEY Administration Clopidogrel Bisulfate 75 mg 03/27/19 19:00 03/30/19 08:37 Plavix PO 04/26/19 18:59 75 mg QAM DELANEY Administration Hydromorphone HCl 1 mg 03/29/19 10:16 03/31/19 15:45 Dilaudid IV 04/11/19 14:10 1 mg Q2H PRN Administration Moderate Pain Imipenem/Cilastatin Sodium 200 108 mls @ 100 mls/hr 03/24/19 22:00 03/31/19 15:49 mg/ Dextrose IV 05/05/19 21:59 Infused Q6H DELANEY Infusion Protocol Insulin Aspart 0 units 03/31/19 06:00 03/31/19 12:46 Novolog Flexpen SC 04/30/19 05:59 Not Given Q6 [facility] Protocol Insulin Glargine 0 units 03/29/19 21:00 03/30/19 21:55 Lantus Solostar Pen SQ 04/28/19 20:59 10 units HS DELANEY Administration Protocol Ioversol 119 ml 03/28/19 11:25 03/28/19 11:25 Optiray 320 125ml IV 04/01/19 11:24 119 ml ONCE PRN Administration Interaction Checking Levothyroxine Sodium 50 mcg 03/25/19 06:30 03/31/19 05:28 Synthroid PO 04/24/19 06:29 Not Given DAILYBB DELANEY Levothyroxine Sodium 200 mcg 03/25/19 06:30 03/31/19 05:28 Synthroid PO 04/24/19 06:29 Not Given DAILYBB DELANEY Metoprolol Tartrate 25 mg 03/24/19 21:00 03/31/19 09:00 Lopressor PO 04/23/19 20:59 Not Given BID DELANEY Polyethylene Glycol 17 gm 03/25/19 09:00 03/31/19 09:00 Miralax Powder Packet PO 04/24/19 08:59 Not Given DAILY DELANEY Pramipexole Dihydrochloride 0.25 mg 03/24/19 21:00 03/30/19 21:48 Mirapex PO 04/23/19 20:59 0.25 mg HS DELANEY Administration Sertraline HCl 37.5 mg 03/24/19 21:00 03/30/19 21:47 Zoloft PO 04/23/19 20:59 37.5 mg HS DELANEY Administration Sevelamer HCl 800 mg 03/25/19 08:00 03/31/19 15:51 Renagel PO 04/24/19 07:59 800 mg TIDM DELANEY Administration Vitamin D 2,000 units 03/25/19 09:00 03/31/19 08:59 Vitamin D3 PO 04/24/19 08:59 Not Given DAILY DELANEY Warfarin Sodium 3 mg 03/27/19 16:00 03/27/19 16:44 Coumadin PO 04/26/19 15:59 3 mg [id number] DELANEY Administration NPO Date Last Intake of Fluids: 03/30/19 Time Last Intake of Fluids: 23:00 Date Last Intake of Solids: 03/30/19 Time Last Intake of Solids: 23:00 Past Medical History Medical History Azotemia End-stage renal disease on hemodialysis Dialysis AV fistula malfunction Anemia Hyponatremia Secondary hyperparathyroidism of renal origin AV fistula infection AV fistula Diabetes mellitus, type 2 Hemodialysis patient Hyperlipidemia Hypertension Hypothyroidism MRSA (methicillin resistant Staphylococcus aureus) Shingles Stroke Exercise / Class Metabolic Activity III < 4 Walking/Shop/Light housework Past Family History Family History Unknown Diabetes Past Surgical History Surgical History H/O section History of cholecystectomy History of hand surgery Past Anesthesia History No Hx of Anesthesia Complications and No Family Hx of Anesthesia Complications History of PONV No Hx of PONV and No Hx of Motion Sickness Social History Smoking Status: Former smoker Smoking End Date: 2017 Hx Alcohol Use: Yes alcohol intake frequency: holidays/special occasions only Hx Substance Use: No Physical Exam Vital Signs Last Vital Signs Temp 37.1 C 03/31/19 15:17 Pulse 96 H 03/31/19 15:17 Resp 18 03/31/19 15:17 BP 114/72 03/31/19 15:17 Pulse Ox 98 03/31/19 15:17 Constitutional + morbidly obese ENMT Mouth: no dentition abnormality Thyromental Distance: > or= 3.5 Finger Breadths Mallampati Class: II Neck normal visual inspection and trachea midline; neck extension not limited Respiratory normal respiratory effort Auscultation: lungs clear to auscultation bilaterally Cardiovascular Rate/Rhythm: regular rate and regular rhythm Heart Sounds: no murmur Vessels: no carotid bruit Musculoskeletal Spine: normal cervical ROM Neurologic moves all extremities Motor/Sensory: no sensory deficit Psychiatric Orientation: alert and oriented x 3 Testing Electrocardiogram Date: 03/27/19 Findings: + NSR @ (93) When compared with ECG of 24-MAR-2019 15:58, Criteria for Septal infarct are no longer Present Chest X-Ray Date: 03/27/19 Findings: + cardiomegaly and + pulmonary vascular congestion Laboratory Results 03/31/19 10:17 03/31/19 10:17 PT 28.6 Seconds (9.0-12.0) H 03/29/19 06:00 INR 3.0 (0.9-1.1) H 03/29/19 06:00 Hemoglobin A1c 9.7 % (4.5-5.6) H 03/25/19 07:33 03/26/19 17:44 Gram Stain - Final Hand,Right Aerobic and Anaerobic Culture - Final Corynebacterium species Actinomyces turicensis Probable juli gram neg bacilli 03/26/19 17:44 Gram Stain - Final Hand,Right Aerobic and Anaerobic Culture - Final No growth 03/24/19 23:36 Blood Culture - Final Blood No growth 03/24/19 21:42 Blood Culture - Final Blood No growth 03/31/19 03/31/19 12:35 05:43 POC Glucose 138 H 129 H
[2019-03-31 10:31] LABS: Hematocrit (blood only) 25.4 % (37-47); Hemoglobin 8.1 g/dL (12.0-16.0); Mean Corpuscular Hgb Conc 31.9 g/dL (32-36); Mean Corpuscular Volume 97.7 fL (80-100); Platelet Count 270 K/uL (130-400); RDW Coefficient of Variation 14.1 % (11.5-14.5); RDW Standard Deviation 49.9 fL (36.4-46.3)
--- NOTE | 2019-03-31 10:48 | Nephrology Progress Note ---
Date of Service March 31, 2019 Assessment & Plan (1) End-stage renal disease on hemodialysis: -- HD TTS -- BP chronically low but acceptable -- AVF with very weak thrill and poor bruit, remains significantly ecchymotic and tender, not able to be used for HD for now -- Femoral catheter used for treatment -- Vascular consulted for permcath placement -- Doppler of AVF reviewed -- Medications appropriate for kidney function -- Renal diet (2) Cellulitis of right hand: -- Culture growing corynebacterium -- ID following (3) Anemia: -- Epogen [id number] given on 03/27/20 (4) Secondary hyperparathyroidism of renal origin: (5) Hyperkalemia: -- Improved with HD -- Low potassium diet -- Monitor metabolic profile QAM Subjective No acute events overnight. Anxious regarding OR. Pain persists but reasonably controlled. No fevers or chills. Tolerated HD well yesterday. Breathing comfortably. Review of Systems Review of Systems: All systems reviewed & are unremarkable except as noted in HPI & below Physical Exam Constitutional: well developed and + obese; no acute distress Eyes: no scleral abnormality and no corneal abnormality ENMT: Mouth: no oral mucosal abnormality and oral mucous membranes not dry Neck: normal visual inspection and trachea midline Respiratory: no respiratory distress Auscultation: lungs clear to ausc ultation bilaterally Cardiovascular: Heart Sounds: normal S1 and normal S2 Extremities: + AV fi stula (weak thrill and bruit, significant ecchymosis, tender to palpation) Gastrointestinal (Abdomen): Inspection/Auscultation: normal bowel sounds Percussion/Palpation: abdomen soft; abdomen nontender Musculoskeletal: Extremities: + limited ROM of extremities and + muscle atrophy Skin: + lesion and + ulcer; no rashes Neurologic: Motor/Sensory: no tremor and no asterixis Psychiatric: Affect: + flat affect Mood: + depressed mood Results & Data Vital Signs (Past 12 Hours) Vital Signs Temp Pulse Resp BP BP Pulse Ox 03/31/19 07:29 37.3 C 89 14 94/58 L 93 03/30/19 23:07 37.4 C 94 H 18 101/63 96 Laboratory Results Laboratory Results - last 24 hr 03/30/19 03/30/19 03/30/19 13:51 18:22 20:46 WBC RBC Hgb Hct MCV MCH MCHC RDW Std Deviation RDW Coeff of Tommy Plt Count MPV Creatinine Est Cr Clr Drug Dosing Est GFR ( Amer) Est GFR (Non-Af Amer) POC Glucose 112 H 113 H 134 H 03/31/19 03/31/19 03/31/19 05:43 05:46 10:17 WBC 11.10 H RBC 2.60 L Hgb 8.1 L Hct 25.4 L MCV 97.7 MCH 31.2 MCHC 31.9 L RDW Std Deviation 49.9 H RDW Coeff of Tommy 14.1 Plt Count 270 MPV 9.0 Creatinine 5.20 H* D Est Cr Clr Drug Dosing 13.7 Est GFR ( Amer) 9.7 Est GFR (Non-Af Amer) 8.3 POC Glucose 129 H
[2019-03-31 11:12] LABS: BUN Creatinine Ratio 4.2 (10-20); Calcium 8.8 mg/dl (8.5-10.1); Creatinine Clr Calc Pharmacy 12.9 ml/min; Est GFR (Non-African American) 7.8; Potassium 4.5 mmol/L (3.5-5.1)
--- NOTE | 2019-03-31 13:04 | Communication Note ---
Date of Service: March 31, 2019 Will plan on permcath on Friday if fistula can not be used . Fistula is patient on USN and there is good flow to the hand on CTA.
--- NOTE | 2019-03-31 14:30 | Infectious Disease Progress Nt ---
Date of Service March 31, 2019 Assessment & Plan (1) Cellulitis of right hand: 58-year-old female with end-stage renal disease on dialysis deep right hand infection status post debridement, with persistent pain persistent pain and distal small artery obstruction. For OR . Continue IV antibiotics. Subjective Patient seen in follow-up for right hand infection. For OR later today for further debridement. Pain better controlled. No fever. Review of Systems Review of Systems: All systems reviewed & are unremarkable except as noted in HPI & below Physical Exam Constitutional: WD/WN, vitals as above + acute distress and + ill appearing Eyes: PERRL, conjunctivae normal, anicteric sclerae ENMT: external ear and nose normal, oropharynx normal Neck: trachea midline, no thyromegaly neck nontender Respiratory: normal respiratory effort, lungs clear to auscultation normal percussion; no respiratory distress and does not use accessory muscles Cardiovascular: Rate/Rhythm: regular rate and regular rhythm Heart Sounds: normal S1 and normal S2; no gallop, no murmur and no cardiac rub Vessels: normal peripheral pulses; no JVD Gastrointestinal (Abdomen): normal bowel sounds, soft, nontender, no hepatosplenomegaly Musculoskeletal: no cyanosis or clubbing, extremities motor strength 5/5 Spine: thoracic spine normal to inspection and lumbar spine normal to inspection; no cervical spinal tenderness Skin: no rashes dressing intact right hand Neurologic: patellar DTR's 2+ bilat, sensation intact moves all extremities and awake; no focal motor deficits Motor/Sensory: no sensory deficit Psychiatric: A+Ox3, euthymic affect Orientation: cooperative Lymphatic: no cervical or axillary lymphadenopathy no inguinal lymphadenopathy Results & Data Vital Signs (Past 12 Hours) Vital Signs Temp Pulse Resp BP Pulse Ox 03/31/19 07:29 37.3 C 89 14 94/58 L 93 Laboratory Results Short CBC 03/31/19 Range/Units 10:17 WBC 11.10 H (4.8-10.8) K/uL Hgb 8.1 L (12.0-16.0) g/dL Hct 25.4 L (37-47) % Plt Count 270 (130-400) K/uL BMP 03/31/19 03/31/19 05:46 10:17 Sodium 130 L Potassium 4.5 Chloride 100 Carbon Dioxide 24 BUN 23 H Creatinine 5.20 H* D 5.51 H* D Glucose 143 H Calcium 8.8 Diagnostic Findings Microbiology 03/26/19 17:44 Hand,Right Gram Stain - Final 03/26/19 17:44 Hand,Right Aerobic and Anaerobic Culture - Final Corynebacterium species Actinomyces turicensis Probable juli gram neg bacilli 03/26/19 17:44 Hand,Right Gram Stain - Final 03/26/19 17:44 Hand,Right Aerobic and Anaerobic Culture - Final No growth 03/24/19 23:36 Blood Blood Culture - Final No growth 03/24/19 21:42 Blood Blood Culture - Final No growth
[2019-03-31] MEDS ORDERED: fentaNYL citrate 100 MCG/2 ML VIAL ONE ×3 (16:35→18:55)
[2019-03-31] MEDS ORDERED: BACITRACIN INJ 50,000 UNIT VIAL ONE (16:46)
[2019-03-31] MEDS ORDERED: BUPIVACAINE 0.5 % 5 MG/1 ML MPF 30ML VIAL ONE (16:46)
[2019-03-31] MEDS ORDERED: BUPIVACAINE/EPINEPHRINE 0.5% MPF 1:200,000 30 ML VIAL ONE (16:46)
--- NOTE | 2019-03-31 16:51 | History & Physical Bridge Note ---
Date of Service March 31, 2019 History & Physical Bridge Note I have examined the patient, reviewed the History & Physical and in the interval since the performance of the History & Physical I have noted the following changes of clinical significance: no changes noted I saw the preoperative holding area, we discussed risk benefits reasonable outcomes and expectations I did discuss with her right index finger ray amputation as well as additional irrigation and debridement if necessary. I spoke with her sister who is a legal power of emergency room registered nurse and did obtain verbal consent for the surgical procedure.
[2019-03-31] MEDS ORDERED: PROPOFOL IV EMULSION 10 MG/ML 20 ML VIAL IV ONE (18:37)
[2019-03-31] MEDS ORDERED: PHENYLEPHRINE HCL 10 MG/ML VIAL ONE (18:37)
[2019-03-31] MEDS ORDERED: ONDANSETRON INJ 2 MG/ML 2 ML VIAL ONE (18:44)
--- NOTE | 2019-03-31 18:54 | Post Operative Brief Note ---
Immediate Post Op Note v1 Date of Surgery March 31, 2019 Pre & Post Diagnosis Operation Date: 03/26/19 13:40 Pre-Op Diagnosis: Abscess dorsal hand, osteomyelits of second metacarpal hand Post-Op Diagnosis: Osteomyelitis second metacarpal, second proximal phalanx, dorsal abscess right dorsal abscess x 2 separate sites. fasciitis dorsal hand, infectious tenosynovitis second and third extensor, rupture second extensor tendon with necrosis Operation Date: 03/31/19 07:00 Pre-Op Diagnosis: Gangrene of right index finger Post-Op Diagnosis: Gangrene of right index finger Operation Date: 04/02/19 10:55 <No data on this case meets the specified criteria> Procedure Operation Date: 03/26/19 13:40 Actual Procedures p Incision and Drainage abscess dorsal right hand x2 separate locations; Debridement 2nd extensor; tenonectomy of 2nd and 3rd extensor; partial fasciectomy dorsal hand(Right) - Henrik Izaguirre DO s Amputation 2nd metacarpal head and 2nd proximal phalanx; (Right) - Henrik Izaguirre DO Operation Date: 03/31/19 07:00 Actual Procedures p Right Index finger amputation, application of VAC sponge(Right) - Juvencio Colon MD Operation Date: 04/02/19 10:55 <No data on this case meets the specified criteria> Surgeon Juvencio Colon MD Physical Therapy Director None Estimated Blood Loss 15 Findings Consistent with Post-Op Diagnosis Specimens Aerobic anaerobic Gram stain right dorsal hand 2 separate sites second extensor compartment and third extensor compartment. Second metacarpal head and proximal aspect second proximal phalanx. Necrotic second extensor tendon Drains Other (Wound vac)
[2019-03-31] MEDS ORDERED: PROMETHAZINE HCL 12.5 MG in SODIUM CHLORIDE 0.9% 50 ML IV PRN (19:11)
[2019-03-31] MEDS ORDERED: FLUMAZENIL 0.1 MG/1 ML 10 ML VIAL IV PRN (19:11)
[2019-03-31] MEDS ORDERED: ePHEDrine sulfate 50 MG/ML AMP IV PRN (19:11)
[2019-03-31] MEDS ORDERED: LABETALOL HCL IV 5 MG/ML 20ML IV PRN (19:11)
[2019-03-31] MEDS ORDERED: NALOXONE HCL 0.4 MG/1 ML VIAL/CARP IV PRN (19:11)
[2019-03-31] MEDS ORDERED: ONDANSETRON INJ 2 MG/ML 2 ML VIAL IV PRN (19:11)
[2019-03-31] MEDS ORDERED: ATROPINE SULFATE 0.1 MG/ML 10ML SYR IV PRN (19:11)
[2019-03-31] MEDS: fentaNYL citrate 100 MCG/2 ML VIAL IV PRN ×4 (19:17→19:32)
[2019-03-31] MEDS: HYDROmorphone INJ 0.5 MG/0.5 ML SYR IV PRN ×2 (19:40→19:45)
--- NOTE | 2019-03-31 20:26 | Anesthesiology Progress Note ---
Date of Service March 31, 2019 Anesthesia Post Procedure Vital Signs Vital Signs: Temp Pulse Pulse Resp BP BP Pulse Ox 03/31/19 19:49 36.6 C 119 H 13 137/71 97 03/31/19 19:40 119 H 13 132/69 97 03/31/19 19:30 119 H 17 141/73 H 94 03/31/19 19:20 117 H 16 156/74 H 94 03/31/19 19:10 113 H 18 150/80 H 94 03/31/19 19:04 36.5 C 115 H 16 139/81 94 03/31/19 15:17 37.1 C 96 H 18 114/72 98 03/31/19 07:29 37.3 C 89 14 94/58 L 93 03/30/19 23:07 37.4 C 94 H 18 101/63 96 Pain Intensity Right Hand: Pain Intensity: 5 Transfer of Care Handoff Completed per policy Notes Mental Status: alert / awake / arousable Patient Amnestic to Procedure: Yes Nausea / Vomiting: adequately controlled Pain: adequately controlled Airway Patency, RR, SpO2: stable & adequate BP & HR: stable & adequate Hydration State: stable & adequate Anesthetic Complications: no major complications apparent
[2019-03-31] MEDS: PRAMIPEXOLE DIHYDROCHLO 0.25 MG TAB PO SCH (20:57)
[2019-03-31] MEDS: ATORVASTATIN 20 MG TAB PO SCH (20:57)
[2019-03-31] MEDS: SERTRALINE HCL 50 MG TABLET PO SCH (20:58)
[2019-03-31] MEDS: INSULIN GLARGINE SOLOSTAR 100 UNITS/ML 3 ML PEN SQ SCH (21:01)
[2019-03-31] MEDS: HYDROCODONE/ACETAMOPHEN 5/325MG TAB PO PRN (22:15)
--- NOTE | 2019-03-31 23:46 | Hospitalist Progress Note ---
Date of Service March 31, 2019 Assessment & Plan (1) Osteomyelitis of hand, right, acute: Diabetic hand infection. CT hand on 03/25 showed osteomyelitis. - Seen by vascular, ortho, and ID - Appreciate recs - Had extensive washout and debridement on 03/[address] Izaguirre - multiple abscesses, partial amputations of the second metacarpal head and second proximal phalanx - Follow up deep wound cultures after surgery - wound does not appear to be healing well, - Scheduled for amputaion of index finger on 03/31 (this afternoon) - Continue vanc & imipenem/cilastatin (2) Ischemic finger: On 03/27, her right index finger became cool, mottled, and painful. I discussed this with Drs. Izaguirre, Derrick, and Isaiah, as well as a vascular surgeon from [place] in regards to any salvage therapy for the index finger. She was put on aspirin and Plavix. Heparin gtt was not done due to her INR being near therapeutic. Discussed calcium channel blockers or nitro, but it was not thought to be vasospasm-induced, so unlikely to help, and additionally her BP has been low-normal in the 90/60 range, so I do not think she would tolerate either therapy. Attempted to get u/s Dopplers of the hand arteries, but the tech could not get them through her dressing from the recent surgery. - CTA right hand on 03/28 showed: 1) flow in the radial, ulnar, superficial palmar, and deep palmar arteries 2) no flow within the digital artery along the radial aspect of the second finger 3) thrombosis of the proximal digital artery along the ulnar aspect of the second finger 4) moderate stenosis with near complete to complete occlusion involving the digital artery along the ulnar aspect of the third finger Given her extensive artherosclerotic disease seen on the CTA and her recent significant surgery, there are no viable surgical options for the ischemic right index finger. In discussion with the surgeons, medical therapy is all that's possible for now. Will have amputation of right index finger today. (3) Cellulitis: Right hand and arm. - Plan as above (4) End-stage renal disease on hemodialysis: On admission - K+ up to 6.8. - S/p HD on 03/25 - Continue Bumex & sevelamer - On 03/27, K+ was back up to 6.3; possibly from tissue breakdown. - HD failed on 03/27 in the AM; U/s showed patent AV fistula. AVF infiltrated a second time in the evening. - On 03/27 at ~10pm, she had an urgent femoral HD line placed by pulpily/agusto - Underwent HD overnight of 03/27-03/28 - Appreciate nephrology recs - Plan for HD on Friday if K+ remains normal. -Potassium remains normal. (5) Anemia: Anemia of chronic disease and CKD. - Baseline hgb ~11; on 03/25 was 10.0. Hgb 8.8 on 03/28, but stable from 03/27. - Monitor hgb (6) Atrial fibrillation: History of atrial fibrillation and CVA. Chads-Vasc of 6, making her a high-risk candidate. - Rate-controlled with metoprolol 25mg PO BID - Anticoagulation with warfarin - On presentation, her INR was 8.3 for which she received vitamin K 5mg IV x 1. - On 03/25, her INR was down to 2.0. On 03/26, INR was 1.4. - Monitor INR; restarted warfarin after surgery. - Held warfarin on 03/28, as her INR was rising quickly - Will likely need lower dose given her poor PO intake-contiunue to hold for surgery (7) Diabetes: A1c of 9.7% on 03/25. - Continue basal bolus insulin with sliding scale coverage - Glycemic pharmacist consult (8) Hypothyroidism: TSH was 0.2 on 03/26 with normal FT4. No signs/symptoms of hypo- /hyperthyroidism. - Continue home Synthroid 250 mcg - Will not change dose in setting of acute illness. (9) Restless leg syndrome: No current symptoms. - Continue ropinerole QHS (10) DVT prophylaxis: SCDs - INR is 3.0 on 03/29 Spent 25 minutes in management of patient. Subjective Patient is anxious about her surgery today. She reports her affected hand continues to be in pain. She is tearfl about the surgery. Review of Systems Review of Systems: All systems reviewed & are unremarkable except as noted in HPI & below Physical Exam Physical Exam: Constitutional: WD/WN, vitals as above Respiratory: normal respiratory effort; no respiratory distress Cardiovascular: Rate/Rhythm: regular rate and regular rhythm Gastrointestinal (Abdomen): normal bowel sounds, soft, nontender, no hepatosplenomegaly Skin: + induration (Right hand. Index finger mottled.) Neurologic: normal touch/pain/proprioception and CN's II-XI intact bilaterally Psychiatric: Orientation: alert and oriented x 3 Results & Data Vital Signs (Past 12 Hours) Vital Signs Temp Pulse Pulse Pulse Resp BP BP 03/31/19 23:23 37.0 C 107 H 14 114/70 03/31/19 22:15 37.3 C 114 H 18 125/77 03/31/19 21:20 36.9 C 109 H 14 109/66 03/31/19 20:49 37.1 C 134 H 16 105/65 03/31/19 20:20 37.2 C 118 H 16 117/70 03/31/19 19:49 36.6 C 119 H 13 137/71 03/31/19 19:40 119 H 13 132/69 03/31/19 19:30 119 H 17 141/73 H 03/31/19 19:20 117 H 16 156/74 H 03/31/19 19:10 113 H 18 150/80 H 03/31/19 19:04 36.5 C 115 H 16 139/81 03/31/19 15:17 37.1 C 96 H 18 114/72 Pulse Ox 03/31/19 23:23 97 03/31/19 22:15 100 03/31/19 21:20 98 03/31/19 20:49 90 03/31/19 20:20 99 03/31/19 19:49 97 03/31/19 19:40 97 03/31/19 19:30 94 03/31/19 19:20 94 03/31/19 19:10 94 03/31/19 19:04 94 03/31/19 15:17 98
[2019-04-01] MEDS: INSULIN ASPART 100 UNITS/ML 3 ML PEN SC SCH ×6 (00:31→20:40)
[2019-04-01] MEDS: HYDROmorphone INJ 1 MG/ML SYRINGE IV PRN ×8 (00:38→20:38)
[2019-04-01] MEDS: IMIPENEM/CILASTATIN SODIUM 200 MG in DEXTROSE 5% 100 ML IV SCH ×4 (02:37→20:35)
[2019-04-01] MEDS: LEVOTHYROXINE SODIUM 200 MCG TABLET PO SCH (05:30)
[2019-04-01] MEDS: LEVOTHYROXINE SODIUM 50 MCG TABLET PO SCH (05:30)
[2019-04-01] MEDS ORDERED: SODIUM CHLORIDE 0.9% 1000ML 1,000 ML IV PRN (07:00)
[2019-04-01] MEDS ORDERED: Nursing to Pharmacy Communication ONE (07:53)
--- NOTE | 2019-04-01 07:57 | Operative Report ---
DATE OF OPERATION: 03/31/2019 PREOPERATIVE DIAGNOSES: 1. Right hand infection. 2. Right hand gangrene, index finger. PROCEDURE: 1. Right index finger ray amputation. 2. Right hand application of VAC sponge. 3. Right hand irrigation and debridement of skin, subcutaneous tissue, and fascia. SURGEON: Junito Colon MD RAND BUTTER: None. ANESTHESIA: General. INDICATIONS: This is a female who is status post irrigation and debridement of the hand. She presents with progressive gangrene and ischemia of the finger. Examination shows 2 dorsal incisions with a necrotic skin bridge in between. She has gross opening of the wound down to the level of the MP joint with exposed bone. She presents for the above-mentioned work. The risks and benefits have been discussed including, but not limited to, risk of infection, nerve injury, stiffness, loss of motion, failure to improve, etc. Reasonable outcomes and options of treatment were discussed. An explanation of appropriate alternatives to the procedure that may be advantageous were discussed and their risks and benefits, as well as the risks and benefits of not proceeding with treatment. I offered to answer any additional inquiries concerning the treatment involved. All the patient's questions were answered. The patient is agreeable, understanding of the treatment plan and alternatives, and wishes to proceed with the treatment plan. DESCRIPTION OF THE OPERATION: With a knife, I performed debridement of devitalized tissue. I excised the necrotic skin bridge and the skin was in between. I then disarticulated the finger at the MP joint and I excised the necrotic tissue, which was over the dorsal and radial aspects of the MP joint. I sharply incised the fascial layer over the second metacarpal and I placed 2 Hohmanns around the second metacarpal. I then transected the metacarpal with a sagittal saw and removed the metacarpal, completing ray amputation. I again debrided the area of devitalized tissue. There was a large area of open wound over the third metacarpal region and where the second metacarpal used to be. This was about 3 x 2 cm. I copiously irrigated the wound. I placed a forearm tourniquet at the beginning of the procedure to preserve the patient's vascular access. This was let down and hemostasis was obtained with bipolar electrocautery. Hemostasis was good. There was evidence of gross purulence, infection, and necrosis in the distal aspect of the metacarpal and all this was debrided. I then partially closed the skin proximally with 3-0 nylon in a simple fashion. The open wound which was 3 x 2 cm was then ready for VAC. I cut the appropriate size VAC sponge and this was placed in the wound. I then placed VAC adherent to this and the VAC was then placed over the sponge and this did result in good suction with a low leak. This was placed at 125 mmHg continuous. The patient was placed in a soft dressing and sent to the PACU in a stable condition and postoperative plan will be wound care with VAC changes. We will continue to monitor the patient's surgical wound. There was evidence of exposed tendon in the third metacarpal, but no evidence of disruption of the periosteum. I attest to the content of the Intraoperative Record and any orders documented therein. Any exception s are noted below.
[2019-04-01] MEDS: CLOPIDOGREL BISULFATE 75 MG TAB PO SCH (08:30)
[2019-04-01] MEDS: BUMETANIDE 1 MG TAB PO SCH (08:30)
[2019-04-01] MEDS: CHOLECALCIFEROL 1,000 UNITS TAB PO SCH (08:30)
[2019-04-01] MEDS: ASPIRIN 81 MG ECTAB PO SCH (08:31)
[2019-04-01] MEDS: CALCIUM CARBONATE 500 MG CHEWABLE TAB PO SCH ×3 (08:31→18:34)
[2019-04-01] MEDS: SEVELAMER HCL 800 MG TABLET PO SCH ×3 (08:31→18:35)
[2019-04-01] MEDS: HYDROCODONE/ACETAMOPHEN 5/325MG TAB PO PRN ×2 (08:35→16:58)
[2019-04-01] MEDS: POLYETHYLENE (MIRALAX) 17 GM PACK PO SCH (08:36)
--- NOTE | 2019-04-01 09:43 | Pharmacy Report ---
Pharmacy Abx Dose Short Note - Date of Service April 01, 2019 - Assessment & Plan Laboratory Tests 04/01/19 05:41 Random Vancomycin 20.3 Assessment 58 year old F receiving vancomycin/primaxin for treatment of osteomyelitis Day # 9 of antimicrobial therapy. ID also following consult. Plan Vancomycin * Trough level of 20.3 mcg/mL is therapeutic * Patient scheduled for dialysis NOW; anticipate ~30% removal from dialysis tomorrow bringing current vancomycin level <15 mcg/ml which will be subtherapeutic * Therefore, will give small vancomycin dose today of 500 mg x 1 after HD today * Will plan to reorder random vancomycin level prior to next dialysis session Primaxin * 200 mg iv q 6 hrs - appropriate for patient's on intermittent HD Pharmacy will continue to follow and will adjust dose/frequency as necessary. Thank you.
--- NOTE | 2019-04-01 11:54 | Nephrology Progress Note ---
Date of Service April 01, 2019 Assessment & Plan (1) End-stage renal disease on hemodialysis: -- HD TTS -- Orders entered into EMR and discussed with dialysis nurse -- BP chronically low but acceptable -- AVF with very weak thrill and poor bruit, remains significantly ecchymotic and tender, not able to be used for HD for now -- Vascular surgery planning permcath placement -- Medications appropriate for kidney function -- Renal diet (2) Cellulitis of right hand: -- Culture growing corynebacterium -- ID following (3) Anemia: -- Epogen 62130 given on 03/27/20 (4) Secondary hyperparathyroidism of renal origin: (5) Hyperkalemia: -- Improved with HD -- Low potassium diet -- Monitor metabolic profile QAM Subjective No acute events overnight. Kortney was seen and evaluated during hemodialysis today. She notes significant pain in her right hand and arm. AVF was not able to be used for hemodialysis. Qb acceptable running V-->A via femoral catheter. BP low but acceptable. Kortney was treated with Dilaudid during treatment for pain. Review of Systems Review of Systems: All systems reviewed & are unremarkable except as noted in HPI & below Physical Exam Constitutional: well developed and + obese; no acute distress Eyes: no scleral abnormality and no corneal abnormality ENMT: Mouth: no oral mucosal abnormality and oral mucous membranes not dry Neck: normal visual inspection and trachea midline Respiratory: no respiratory distress Auscultation: lungs clear to auscultation bilaterally Cardiovascular: Heart Sounds: normal S1 and normal S2 Extremities: + AV fistula (weak thrill and bruit, significant ecchymosis, tender to palpation) Gastrointestinal (Abdomen): Inspection/Auscultation: normal bowel sounds Percussion/Palpation: abdomen soft; abdomen nontender Musculoskeletal: right hand wrapped with kerlix, dressing CDI Skin: + lesion and + ulcer; no rashes Neurologic: Motor/Sensory: no tremor and no asterixis Psychiatric: Affect: + flat affect Mood: + depressed mood Results & Data Vital Signs (Past 12 Hours) Vital Signs Temp Pulse Pulse Resp BP BP Pulse Ox 04/01/19 11:40 82 71/32 L 04/01/19 11:20 85 88/35 L 04/01/19 11:00 90 84/64 L 04/01/19 10:40 86 98/45 L 04/01/19 10:20 85 81/30 L 04/01/19 10:00 94 H 98/37 L 04/01/19 09:40 78 94/43 L 04/01/19 09:24 37.2 C 46 L 46 L 119/93 04/01/19 07:45 37 C 83 18 137/66 95 04/01/19 06:18 37.2 C 86 14 94/55 L 94 04/01/19 05:25 36.9 C 89 14 111/65 95 04/01/19 04:02 37.1 C 85 14 94/60 L 94 04/01/19 02:11 37.3 C 84 14 87/55 L 95 Laboratory Results Laboratory Results - last 24 hr 03/31/19 03/31/19 03/31/19 12:35 16:34 19:08 POC Glucose 138 H 131 H 130 H Random Vancomycin 03/31/19 04/01/19 04/01/19 20:28 00:23 05:41 POC Glucose 148 H 134 H Random Vancomycin 20.3 04/01/19 06:15 POC Glucose 157 H Random Vancomycin
--- NOTE | 2019-04-01 13:12 | Infectious Disease Progress Nt ---
Date of Service April 01, 2019 Assessment & Plan (1) Cellulitis of right hand: 58-year-old female with end-stage renal disease on dialysis deep right hand infection status post debridement, with persistent pain persistent pain and distal small artery obstruction. Cultures have grown corynebacterium, actinomyces, and anaerobes. Should be well covered with imipenem. Will follow. Subjective Patient seen in follow-up for right hand infection. Still complaining of severe pain. Had low-grade fever, currently afebrile. Review of Systems Review of Systems: All systems reviewed & are unremarkable except as noted in HPI & below Physical Exam Constitutional: WD/WN, vitals as above + acute distress and + ill appearing Eyes: PERRL, conjunctivae normal, anicteric sclerae ENMT: external ear and nose normal, oropharynx normal Neck: trachea midline, no thyromegaly neck nontender Respiratory: normal respiratory effort, lungs clear to auscultation normal percussion; no respiratory distress and does not use accessory muscles Cardiovascular: Rate/Rhythm: regular rate and regular rhythm Heart Sounds: normal S1 and normal S2; no gallop, no murmur and no cardiac rub Vessels: normal peripheral pulses; no JVD Gastrointestinal (Abdomen): normal bowel sounds, soft, nontender, no hepatosplenomegaly Musculoskeletal: no cyanosis or clubbing, extremities motor strength 5/5 Spine: thoracic spine normal to inspection and lumbar spine normal to inspection; no cervical spinal tenderness Skin: no rashes Right hand unchanged Neurologic: patellar DTR's 2+ bilat, sensation intact moves all extremities and awake; no focal motor deficits Motor/Sensory: no sensory deficit Psychiatric: A+Ox3, euthymic affect Orientation: cooperative Lymphatic: no cervical or axillary lymphadenopathy no inguinal lymphadenopathy Results & Data Vital Signs (Past 12 Hours) Vital Signs Temp Pulse Pulse Resp BP BP Pulse Ox 04/01/19 13:00 86 108/41 L 04/01/19 12:40 81 90/41 L 04/01/19 12:20 79 91/36 L 04/01/19 12:00 88 119/22 L 04/01/19 11:40 82 71/32 L 04/01/19 11:20 85 88/35 L 04/01/19 11:00 90 84/64 L 04/01/19 10:40 86 98/45 L 04/01/19 10:20 85 81/30 L 04/01/19 10:00 94 H 98/37 L 04/01/19 09:40 78 94/43 L 04/01/19 09:24 37.2 C 46 L 46 L 119/93 04/01/19 07:45 37 C 83 18 137/66 95 04/01/19 06:18 37.2 C 86 14 94/55 L 94 04/01/19 05:25 36.9 C 89 14 111/65 95 04/01/19 04:02 37.1 C 85 14 94/60 L 94 04/01/19 02:11 37.3 C 84 14 87/55 L 95 Laboratory Results Laboratory Results - last 48 hr 03/30/19 03/30/19 03/30/19 13:51 18:22 20:46 WBC RBC Hgb Hct MCV MCH MCHC RDW Std Deviation RDW Coeff of Tommy Plt Count MPV Sodium Potassium Chloride Carbon Dioxide Anion Gap BUN Creatinine Est Cr Clr Drug Dosing Est GFR ( Amer) Est GFR (Non-Af Amer) BUN/Creatinine Ratio Glucose POC Glucose 112 H 113 H 134 H Calcium Random Vancomycin 03/31/19 03/31/19 03/31/19 05:43 05:46 10:17 WBC 11.10 H RBC 2.60 L Hgb 8.1 L Hct 25.4 L MCV 97.7 MCH 31.2 MCHC 31.9 L RDW Std Deviation 49.9 H RDW Coeff of Tommy 14.1 Plt Count 270 MPV 9.0 Sodium Potassium Chloride Carbon Dioxide Anion Gap BUN Creatinine 5.20 H* D Est Cr Clr Drug Dosing 13.7 Est GFR ( Amer) 9.7 Est GFR (Non-Af Amer) 8.3 BUN/Creatinine Ratio Glucose POC Glucose 129 H Calcium Random Vancomycin 03/31/19 03/31/19 03/31/19 10:17 12:35 16:34 WBC RBC Hgb Hct MCV MCH MCHC RDW Std Deviation RDW Coeff of Tommy Plt Count MPV Sodium 130 L Potassium 4.5 Chloride 100 Carbon Dioxide 24 Anion Gap 6.0 BUN 23 H Creatinine 5.51 H* D Est Cr Clr Drug Dosing 12.9 Est GFR ( Amer) 9.0 Est GFR (Non-Af Amer) 7.8 BUN/Creatinine Ratio 4.2 L Glucose 143 H POC Glucose 138 H 131 H Calcium 8.8 Random Vancomycin 03/31/19 03/31/19 04/01/19 19:08 20:28 00:23 WBC RBC Hgb Hct MCV MCH MCHC RDW Std Deviation RDW Coeff of Tommy Plt Count MPV Sodium Potassium Chloride Carbon Dioxide Anion Gap BUN Creatinine Est Cr Clr Drug Dosing Est GFR ( Amer) Est GFR (Non-Af Amer) BUN/Creatinine Ratio Glucose POC Glucose 130 H 148 H 134 H Calcium Random Vancomycin 04/01/19 04/01/19 05:41 06:15 WBC RBC Hgb Hct MCV MCH MCHC RDW Std Deviation RDW Coeff of Tommy Plt Count MPV Sodium Potassium Chloride Carbon Dioxide Anion Gap BUN Creatinine Est Cr Clr Drug Dosing Est GFR ( Amer) Est GFR (Non-Af Amer) BUN/Creatinine Ratio Glucose POC Glucose 157 H Calcium Random Vancomycin 20.3 Diagnostic Findings Microbiology 03/26/19 17:44 Hand,Right Gram Stain - Final 03/26/19 17:44 Hand,Right Aerobic and Anaerobic Culture - Final Corynebacterium species Actinomyces turicensis Probable juli gram neg bacilli 03/26/19 17:44 Hand,Right Gram Stain - Final 03/26/19 17:44 Hand,Right Aerobic and Anaerobic Culture - Final No growth 03/24/19 23:36 Blood Blood Culture - Final No growth 03/24/19 21:42 Blood Blood Culture - Final No growth
--- NOTE | 2019-04-01 14:57 | Orthopedic Progress Note ---
Date of Service April 01, 2019 Assessment & Plan (1) Ischemic finger: POD #1 Right Hand I&D, index finger partial amputation and wound vac. application. Pain control. D/c planning per primary service. As per Nephrology, ID and medicine. Subjective POD #1, pain is main issue, on dilaudid q2h, norco.Denies SOB, CP, N/V. Physical Exam Physical Exam: Right hand dressing c/d, no drainage, fingers non mobile patient states due to pain, dressing coming unwound. Results & Data Vital Signs (Past 12 Hours) Vital Signs Temp Pulse Pulse Resp BP BP Pulse Ox 04/01/19 14:00 95 H 18 93/60 L 96 04/01/19 13:28 37.1 C 93 H 116/54 L 04/01/19 13:23 93 H 116/54 L 04/01/19 13:20 90 91/22 L 04/01/19 13:00 86 108/41 L 04/01/19 12:40 81 90/41 L 04/01/19 12:20 79 91/36 L 04/01/19 12:00 88 119/22 L 04/01/19 11:40 82 71/32 L 04/01/19 11:20 85 88/35 L 04/01/19 11:00 90 84/64 L 04/01/19 10:40 86 98/45 L 04/01/19 10:20 85 81/30 L 04/01/19 10:00 94 H 98/37 L 04/01/19 09:40 78 94/43 L 04/01/19 09:24 37.2 C 46 L 46 L 119/93 04/01/19 07:45 37 C 83 18 137/66 95 04/01/19 06:18 37.2 C 86 14 94/55 L 94 04/01/19 05:25 36.9 C 89 14 111/65 95 04/01/19 04:02 37.1 C 85 14 94/60 L 94
--- NOTE | 2019-04-01 15:33 | Pharmacy Report ---
Pharmacy Glycemic Short Note 2 - Date of Service April 01, 2019 - Glycemic Short BSG Results (Last 24 hours): 03/31/19 03/31/19 03/31/19 16:34 19:08 20:28 POC Glucose 131 H 130 H 148 H 04/01/19 04/01/19 04/01/19 00:23 06:15 13:54 POC Glucose 134 H 157 H 119 H ASSESSMENT: * Patient received total of 13 units of insulin yesterday of which 10 units was basal. She was NPO yesterday which is why she did not require much correctional/prandial insulin. * She is now ordered a diet increasing her insulin needs. Today is also a dialysis day. * Patient was covered adequately 2 days ago (on a dialysis day) with current Novolog and Lantus parameters; therefore will continue the same. HbA1c is unreliable in ESRD patients d/t interactions between the A1c analyzing technique and high levels of urea in ESRD, reduced RBC life span, iron deficiency anemia, and EPO administration. HbA1c > 7.5% in ESRD patient may overestimate the extent of hyperglycemia in ESRD patients. PLAN FOR INPATIENT GLYCEMIC CONTROL: * Basal insulin: continued * Lantus HS per scale as follows: - for BSG less than 160- give 10 units - for BSG 160 - 200 - give 12 units - for BSG greater 200- give 15 units * Bolus insulin - continued * NovoLog per scale ACHS or Q6hrs while NPO * Goal Range: Low 110 mg/dL - High 140 mg/dL * Correction Factor: 20 mg/dL/unit * Nutritional / Prandial insulin per carb ratio of 1 unit per 7 grams CHO consumed
[2019-04-01] MEDS ORDERED: VANCOMYCIN HCL 500 MG in 0.9 % SODIUM CHLORIDE 100 ML IV SCH (16:00)
[2019-04-01] MEDS ORDERED: LORazepam 0.5 MG TAB PO STA (19:50)
[2019-04-01] MEDS ORDERED: OLANZAPINE 2.5 MG TAB PO ONE (19:55)
--- NOTE | 2019-04-01 19:56 | Progress Note ---
Date of Service April 01, 2019 Received page from the bedside nurse that the patient has been agitated all day long. This is despite ongoing pain management with hydrocodone and Dilaudid. Spoke with patient at bedside. She says that she still has minimal pain but otherwise had no other particular complaints. I asked the patient if she would be willing to take an extra medication to help her get some sleep. She asked what would then happen when she woke up. We discussed that after she woke up if she was still in pain she would be rechecked and likely get more pain medicine. Patient said that she was willing to take something to help with sleep. Plan: We will treat acutely with small doses of Ativan and Zydis. Russ Littlejohn, PGY2 Overnight call Results & Data Vital Signs (Past 12 Hours) Vital Signs Temp Pulse Pulse Resp BP BP Pulse Ox 04/01/19 15:31 37.3 C 88 18 95/62 L 94 04/01/19 14:00 95 H 18 93/60 L 96 04/01/19 13:28 37.1 C 93 H 116/54 L 04/01/19 13:23 93 H 116/54 L 04/01/19 13:20 90 91/22 L 04/01/19 13:00 86 108/41 L 04/01/19 12:40 81 90/41 L 04/01/19 12:20 79 91/36 L 04/01/19 12:00 88 119/22 L 04/01/19 11:40 82 71/32 L 04/01/19 11:20 85 88/35 L 04/01/19 11:00 90 84/64 L 04/01/19 10:40 86 98/45 L 04/01/19 10:20 85 81/30 L 04/01/19 10:00 94 H 98/37 L 04/01/19 09:40 78 94/43 L 04/01/19 09:24 37.2 C 46 L 46 L 119/93
[2019-04-01] MEDS: ATORVASTATIN 20 MG TAB PO SCH (20:31)
[2019-04-01] MEDS: METOPROLOL TARTRATE 25 MG TAB PO SCH (20:35)
[2019-04-01] MEDS: SERTRALINE HCL 50 MG TABLET PO SCH (20:37)
[2019-04-01] MEDS: PRAMIPEXOLE DIHYDROCHLO 0.25 MG TAB PO SCH (20:38)
[2019-04-01] MEDS: INSULIN GLARGINE SOLOSTAR 100 UNITS/ML 3 ML PEN SQ SCH (20:39)
--- NOTE | 2019-04-01 22:14 | Hospitalist Progress Note ---
Date of Service April 01, 2019 Assessment & Plan (1) Osteomyelitis of hand, right, acute: Diabetic hand infection. CT hand on 03/25 showed osteomyelitis. - Seen by vascular, ortho, and ID - Appreciate recs - Had extensive washout and debridement on 03/[address] Izaguirre - multiple abscesses, partial amputations of the second metacarpal head and second proximal phalanx - Follow up deep wound cultures after surgery - wound does not appear to be healing well, - Had surgery on 03/31 amputated right index finger. - Continue vanc & imipenem/cilastatin (2) Ischemic finger: On 03/27, her right index finger became cool, mottled, and painful. I dis cussed this with Drs. Izaguirre, Derrick, and Isaiah, as well as a vascular surgeon from [facility] in regards to any salvage therapy for the index finger. She was put on aspirin and Plavix. Heparin gtt was not done due to her INR being near therapeutic. Discussed calcium channel blockers or nitro, but it was not thought to be vasospasm-induced, so unlikely to help, and additionally her BP has been low-normal in the 90/60 range, so I do not think she would tolerate either therapy. Attempted to get u/s Dopplers of the hand arteries, but the tech could not get them through her dressing from the recent surgery. - CTA right hand on 03/28 showed: 1) flow in the radial, ulnar, superficial palmar, and deep palmar arteries 2) no flow within the digital artery along the radial aspect of the second fin ector 3) thrombosis of the proximal digital artery along the ulnar aspect of the second finger 4) moderate stenosis with near complete to complete occlusion involving the digital artery along the ulnar aspect of the third finger Given her extensive artherosclerotic disease seen on the CTA and her recent significant surgery, there are no viable surgical options for the ischemic right index finger. In discussion with the surgeons, medical therapy is all that's possible for now. (3) Cellulitis: Right hand and arm. - Plan as above (4) End-stage renal disease on hemodialysis: On admission - K+ up to 6.8. - S/p HD on 03/25 - Continue Bumex & sevelamer - On 03/27, K+ was back up to 6.3; possibly from tissue breakdown. - HD failed on 03/27 in the AM; U/s showed patent AV fistula. AVF infiltrated a second time in the evening. - On 03/27 at ~10pm, she had an urgent femoral HD line placed by pulpily/agusto - Underwent HD overnight of 03/27-03/28 - Appreciate nephrology recs - Plan for HD on Friday if K+ remains normal. -Potassium remains normal. (5) Anemia: Anemia of chronic disease and CKD. - Baseline hgb ~11; on 03/25 was 10.0. Hgb 8.8 on 03/28, but stable from 03/27. - Monitor hgb (6) Atrial fibrillation: History of atrial fibrillation and CVA. Chads-Vasc of 6, making her a high-risk candidate. - Rate-controlled with metoprolol 25mg PO BID - Anticoagulation with warfarin - On presentation, her INR was 8.3 for which she received vitamin K 5mg IV x 1. - On 03/25, her INR was down to 2.0. On 03/26, INR was 1.4. - Monitor INR; restarted warfarin after surgery. - Held warfarin on 03/28, as her INR was rising quickly - Will likely need lower dose given her poor PO intake-contiunue to hold for surgery (7) Diabetes: A1c of 9.7% on 03/25. - Continue basal bolus insulin with sliding scale coverage - Glycemic pharmacist consult (8) Hypothyroidism: TSH was 0.2 on 03/26 with normal FT4. No signs/symptoms of hypo- /hyperthyroidism. - Continue home Synthroid 250 mcg - Will not change dose in setting of acute illness. (9) Restless leg syndrome: No current symptoms. - Continue ropinerole QHS (10) DVT prophylaxis: SCDs - INR is 3.0 on 03/29 WILL REPEAT in AM. Spent 25 minutes in management of patient. Subjective Patient has been confused as per nursing staff. However when I walked in the room patient, patient appeared to be her normal self. Not currently in pain. Review of Systems Review of Systems: All systems reviewed & are unremarkable except as noted in HPI & below Physical Exam Physical Exam: Constitutional: WD/WN, vitals as above Respiratory: normal respiratory effort; no respiratory distress Cardiovascular: Rate/Rhythm: regular rate and regular rhythm Gastrointestinal (Abdomen): normal bowel sounds, soft, nontender, no hepatosplenomegaly Skin: dressing noted on hand. Neurologic: normal touch/pain/proprioception and CN's II-XI intact bilaterally Psychiatric: Orientation: alert and oriented x 3 Results & Data Vital Signs (Past 12 Hours) Vital Signs Temp Pulse Pulse Resp BP BP Pulse Ox 04/01/19 15:31 37.3 C 88 18 95/62 L 94 04/01/19 14:00 95 H 18 93/60 L 96 04/01/19 13:28 37.1 C 93 H 116/54 L 04/01/19 13:23 93 H 116/54 L 04/01/19 13:20 90 91/22 L 04/01/19 13:00 86 108/41 L 04/01/19 12:40 81 90/41 L 04/01/19 12:20 79 91/36 L 04/01/19 12:00 88 119/22 L 04/01/19 11:40 82 71/32 L 04/01/19 11:20 85 88/35 L 04/01/19 11:00 90 84/64 L 04/01/19 10:40 86 98/45 L 04/01/19 10:20 85 81/30 L
[2019-04-02] MEDS: HYDROmorphone INJ 1 MG/ML SYRINGE IV PRN ×3 (00:16→09:45)
[2019-04-02] MEDS: HYDROCODONE/ACETAMOPHEN 5/325MG TAB PO PRN (01:33)
[2019-04-02] MEDS: IMIPENEM/CILASTATIN SODIUM 200 MG in DEXTROSE 5% 100 ML IV SCH ×4 (04:01→21:52)
[2019-04-02] MEDS: LEVOTHYROXINE SODIUM 200 MCG TABLET PO SCH (04:08)
[2019-04-02] MEDS: LEVOTHYROXINE SODIUM 50 MCG TABLET PO SCH (04:09)
[2019-04-02] MEDS ORDERED: SODIUM CHLORIDE 0.9% 1000ML 1,000 ML IV SCH (08:00)
[2019-04-02] MEDS: CLOPIDOGREL BISULFATE 75 MG TAB PO SCH (08:04)
[2019-04-02] MEDS: ASPIRIN 81 MG ECTAB PO SCH (08:04)
[2019-04-02] MEDS: CHOLECALCIFEROL 1,000 UNITS TAB PO SCH (08:04)
[2019-04-02] MEDS: METOPROLOL TARTRATE 25 MG TAB PO SCH ×2 (08:05→20:50)
[2019-04-02] MEDS: SEVELAMER HCL 800 MG TABLET PO SCH ×3 (08:05→18:18)
[2019-04-02] MEDS: BUMETANIDE 1 MG TAB PO SCH (08:05)
[2019-04-02] MEDS: CALCIUM CARBONATE 500 MG CHEWABLE TAB PO SCH ×3 (08:05→16:45)
[2019-04-02] MEDS: INSULIN ASPART 100 UNITS/ML 3 ML PEN SC SCH ×3 (08:17→21:49)
[2019-04-02 09:10] LABS: INR 2.3 (0.9-1.1); Prothrombin Time 21.9 Seconds (9.0-12.0)
[2019-04-02 09:29] LABS: BUN Creatinine Ratio 4.5 (10-20); Calcium 8.9 mg/dl (8.5-10.1); Creatinine Clr Calc Pharmacy 13.8 ml/min; Est GFR (African American) 9.7; Est GFR (Non-African American) 8.4
--- NOTE | 2019-04-02 10:34 | Orthopedic Progress Note ---
Date of Service April 02, 2019 Assessment & Plan (1) Ischemic finger: Continue wound vac at this time. Will discuss need for any further surgery with Dr Colon. (2) Cellulitis of right hand: Continue IV antibx (3) Osteomyelitis of hand, right, acute: Infectious bone removed. Continue IV antibx. Subjective POD 2 s/p right hand I&D with amputation of 2nd finger. Pt currently awake and somewhat confused. Does follow some commands. Wound care team changing wound vac today. Physical Exam Physical Exam: No overt purulence noted. Open wound from 2nd mtp head to dorsal surface of 3rd finger with muscle/tendon visible. Pt won't allow touching of the hand but her remaining finger tips are pink. Limited ROM due to pain. thumb mobile. Results & Data Vital Signs (Past 12 Hours) Vital Signs Temp Pulse Resp BP Pulse Ox 04/02/19 07:54 36.8 C 81 15 92/59 L 96 04/01/19 23:59 37.5 C 94 H 14 113/67 98
[2019-04-02] MEDS: POLYETHYLENE (MIRALAX) 17 GM PACK PO SCH (10:39)
--- NOTE | 2019-04-02 10:51 | History & Physical Bridge Note ---
Date of Service April 02, 2019 History & Physical Bridge Note Patient for insertion of permcath today. I have discussed the risks options and benefits of the procedure with the patient. The patient understands the risks options and benefits and agrees to the procedure. I have examined the patient, reviewed the History & Physical and in the interval since the performance of the History & Physical I have noted the following changes of clinical significance: no changes noted
--- NOTE | 2019-04-02 11:06 | Nephrology Progress Note ---
Date of Service April 02, 2019 Assessment & Plan (1) End-stage renal disease on hemodialysis: -- HD TTS -- Volume status acceptable -- BP chronically low but acceptable -- AVF with very weak thrill and poor bruit, remains significantly ecchymotic and tender, not able to be used for HD for now -- Vascular surgery consulted for permcath placement -- Medications appropriate for kidney function -- Renal diet (2) Cellulitis of right hand: -- Culture growing corynebacterium -- ID following (3) Anemia: -- Epogen 65819 given on 03/27/20 (4) Secondary hyperparathyroidism of renal origin: (5) Hyperkalemia: -- Improved with HD -- Low potassium diet -- Monitor metabolic profile QAM Subjective No acute events overnight. Tolerated HD well yesterday. Remains afebrile. Some confusion noted. Denies dyspnea. Pain persists. Review of Systems Review of Systems: All systems reviewed & are unremarkable except as noted in HPI & below Physical Exam Constitutional: well developed and + obese; no acute distress Eyes: no scleral abnormality and no corneal abnormality ENMT: Mouth: no oral mucosal abnormality and oral mucous membranes not dry Neck: normal visual inspection and trachea midline Respiratory: no respiratory distress Auscultation: lungs clear to auscultation bilaterally Cardiovascular: Heart Sounds: normal S1 and normal S2 Extremities: + AV fistula (weak thrill and bruit, significant ecchymosis, tender to palpation) Gastrointestinal (Abdomen): Inspection/Auscultation: normal bowel sounds Percussion/Palpation: abdomen soft; abdomen nontender Musculoskeletal: Extremities: + limited ROM of extremities and + muscle atrophy Skin: + lesion and + ulcer; no rashes Neurologic: Motor/Sensory: no tremor and no asterixis Psychiatric: Affect: + flat affect Mood: + depressed mood Results & Data Vital Signs (Past 12 Hours) Vital Signs Temp Pulse Resp BP Pulse Ox 04/02/19 10:48 37 C 93 H 18 107/48 L 97 04/02/19 07:54 36.8 C 81 15 92/59 L 96 04/01/19 23:59 37.5 C 94 H 14 113/67 98 Laboratory Results Laboratory Results - last 24 hr 04/01/19 04/01/19 04/01/19 13:54 17:33 20:32 PT INR Sodium Potassium Chloride Carbon Dioxide Anion Gap BUN Creatinine Est Cr Clr Drug Dosing Est GFR ( Amer) Est GFR (Non-Af Amer) BUN/Creatinine Ratio Glucose POC Glucose 119 H 148 H 131 H Calcium 04/02/19 04/02/19 04/02/19 07:57 08:44 08:44 PT 21.9 H INR 2.3 H Sodium 137 D Potassium 4.0 Chloride 104 Carbon Dioxide 24 Anion Gap 8.0 BUN 23 H Creatinine 5.17 H* D Est Cr Clr Drug Dosing 13.8 Est GFR ( Amer) 9.7 Est GFR (Non-Af Amer) 8.4 BUN/Creatinine Ratio 4.5 L Glucose 131 H POC Glucose 128 H Calcium 8.9 04/02/19 10:56 PT INR Sodium Potassium Chloride Carbon Dioxide Anion Gap BUN Creatinine Est Cr Clr Drug Dosing Est GFR ( Amer) Est GFR (Non-Af Amer) BUN/Creatinine Ratio Glucose POC Glucose 149 H Calcium
[2019-04-02] MEDS ORDERED: HEPARIN SOD (PORCINE) 5,000 UNITS/ML VIAL ONE (11:27)
[2019-04-02] MEDS ORDERED: LIDOCAINE HCL 1% 20 ML VIAL ONE (11:27)
--- NOTE | 2019-04-02 11:27 | Pre Anesthesia Assessment ---
Date of Service April 02, 2019 Pre Sedation Assessment Vital Signs Temp Pulse Pulse Resp BP BP Pulse Ox 04/02/19 10:48 37 C 93 H 18 107/48 L 97 04/02/19 07:54 36.8 C 81 15 92/59 L 96 04/01/19 23:59 37.5 C 94 H 14 113/67 98 04/01/19 15:31 37.3 C 88 18 95/62 L 94 04/01/19 14:00 95 H 18 93/60 L 96 04/01/19 13:28 37.1 C 93 H 116/54 L 04/01/19 13:23 93 H 116/54 L 04/01/19 13:20 90 91/22 L 04/01/19 13:00 86 108/41 L 04/01/19 12:40 81 90/41 L 04/01/19 12:20 79 91/36 L 04/01/19 12:00 88 119/22 L 04/01/19 11:40 82 71/32 L Cardiovascular RRR, no murmur, no edema Respiratory normal respiratory effort, lungs clear to auscultation Pre-Sedation Airway Assessment Smoking Status: Former smoker Hx Sleep Apnea: No Short, Thick Neck: Yes Thyromental Distance: > or= 3.5 Finger Breadths Oral Cavity: + WNL Mallampati Class: II ASA: ASA3 NPO Status Date of Last Intake of Fluids: 04/01/19 Time of Last Intake of Fluids: 21:00 Date of Last Intake of Solid Food: 04/01/19 Time of Last Intake of Solid Foods: 21:00 Procedure Planning Contraindications for Sedation: none Current Medications Reviewed: Yes Notes The planned sedation has been discussed with the patient. Informed Consent was obtained. I have identified the patient, determined the appropriateness of sedation and have assessed the patient immediately prior to the procedure. All medicine(s) and interventions are by my order.
[2019-04-02] MEDS ORDERED: MIDAZOLAM HCL 1 MG/ML 2ML VIAL ONE (11:30)
[2019-04-02] MEDS ORDERED: fentaNYL citrate 100 MCG/2 ML VIAL ONE (11:30)
[2019-04-02] MEDS ORDERED: INSULIN ASPART 100 UNITS/ML 3 ML PEN SC SCH (12:00)
[2019-04-02] MEDS ORDERED: MIX: VIPERSLIDE 20ML + NITRO 5MG + NSS 1000ML IART ONE (12:33)
[2019-04-02] MEDS ORDERED: VISIPAQUE IV PRN (12:35)
--- NOTE | 2019-04-02 13:05 | Procedure Note ---
Angiogram Post Procedure Fluoroscopy Time (minutes): 10.8 Conscious Sedation Time (minutes): 61 Radiation (mGy): 107 Contrast: 15 Post Operative Report Pre & Post Diagnosis Operation Date: 03/26/19 13:40 Pre-Op Diagnosis: Abscess dorsal hand, osteomyelits of second metacarpal hand Post-Op Diagnosis: Osteomyelitis second metacarpal, second proximal phalanx, dorsal abscess right dorsal abscess x 2 separate sites. fasciitis dorsal hand, infectious tenosynovitis second and third extensor, rupture second extensor tendon with necrosis Operation Date: 03/31/19 07:00 Pre-Op Diagnosis: Gangrene of right index finger Post-Op Diagnosis: Gangrene of right index finger Operation Date: 04/02/19 12:50 Pre-Op Diagnosis: Right Arm Hematoma Post-Op Diagnosis: Right Arm Hematoma Procedure Operation Date: 03/26/19 13:40 Actual Procedures p Incision and Drainage abscess dorsal right hand x2 separate locations; Debridement 2nd extensor; tenonectomy of 2nd and 3rd extensor; partial fasciectomy dorsal hand(Right) - Henrik Izaguirre DO s Amputation 2nd metacarpal head and 2nd proximal phalanx; (Right) - Henrik Izaguirre DO Operation Date: 03/31/19 07:00 Actual Procedures p Right Index finger amputation, application of VAC sponge(Right) - Juvencio Colon MD Operation Date: 04/02/19 12:50 Actual Procedures p Insertion of Perm Catheter Right Jugular Approach, Ultrasound Localization of Right Jugular Vein, Superior Vena Cavagram, Fluoroscopy for Positioning, Moderate Sedation [id number](Right) - Dayton Meza MD Surgeon Dayton Meza MD Software Systems Architect None Estimated Blood Loss 30 Findings Consistent with Post-Op Diagnosis Specimens None Anesthesia Type RN Sedation Complications none Disposition Accompanied Patient To Recovery: No Disposition: Recovery Room Indications This is a 58-year-old female who developed a left arm hematoma while on dialysis through her fistula. There is inability to access the fistula due to the large size hematoma. She did have a temporary line in her groin for dialysis and now needs a PermCath so we could rest the right upper arm until the hematoma re absorbs. I have discussed the risks options and benefits of the procedure with the patient. The patient understands the risks options and benefits and agrees to the procedure. Description of Procedure Patient was taken to the angio suite and placed in the supine position. The patient was placed in the supine position the right side of the neck and chest wall were prepped and draped in a sterile manner. The patient was identified and a timeout was performed. Local anesthesia was then administered to the appropriate areas of the neck and chest wall. Ultrasound was then used to locate the right internal jugular vein. The vein compressed easily, had no filing defects, and was patent. The vein was then punctured under direct ultrasound imaging. A guidewire was then passed centrally under fluoroscopic imaging. The wire could not be passed PACS the innominate vein. We therefore inserted a 5 Burkinan sheath superior venacavogram was performed. This showed a anatomy which traverse the right angles the internal jugular than right angles into the superior vena cava. Using a angled glide catheter and 035 Glidewire we were able to traverse into the inferior vena cava. A stab wound was then made in the anterior chest wall and a 19 cm permcath was passed from the stab wound on the chest wall to the puncture site on the neck. We then switched to a stiff Glidewire. An attempt was made to dilate the puncture site this did not pass smoothly into the innominate vein. We therefore ended up exchanging to a 9 Burkinan sheath. This would not pass easily and at this point the wire and catheter slipped back and out of the vein. We then re-puncture the vein under ultrasound guidance. At that point a 5 Burkinan sheath was inserted over the wire. We then again passed an 035 Glidewire over the this wire we passed a angled glide catheter. We were able to get at the inferior vena cava again. Angled glide catheter was passed down. We then switched to an Amplatz wire. When looking at the pictures again there was a lot of tortuosity. We therefore exchanged it to a Lunderquist wire which straightened out the vein somewhat. Once this was done we passed the peel-away sheath. Peel-away sheath passed easily over the Lunderquist wire once the dilator was removed the peel-away sheath had a kink in it. We then passed the dilator to the point of kinking. We passed down through this area a Amplatz wire which got through the distal end of the sheath and straightened it out to allow the dilator to go through. With the stiffer wiring we then passed the wire after removing the dilator through the permacath. PermCath was then inserted through the peel-away sheath over the Amplatz wire. The tip of the catheter once inserted laid at the junction of the superior vena cava and right atrium. It is in good position. The wire was then removed. No kinking was seen in the catheter itself. Both ports aspirated and flushed easily. The catheter was then sutured in place using nylon sutures. The puncture was then closed using a 4-0 Vicryl subcuticular suture. Dermabond was used for a dressing on the puncture site. Both ports aspirated and flushed easily and were then packed with heparin. A sterile dressing was applied to the catheter. The patient left the angio suite in good condition and tolerated the procedure well. All needle and sponge counts were correct at the end of the procedure. The catheter was then sutured in place using nylon sutures. The puncture was then closed using a 4-0 Vicryl subcuticular suture. Dermabond was used for a dressing on the puncture site. Both ports aspirated and flushed easily and were then packed with heparin. A sterile dressing was applied to the catheter. The patient left the angio suite in good condition and tolerated the procedure well. I attest to the content of the Intraoperative Record and any orders documented therein. Any exceptions are noted below.
--- NOTE | 2019-04-02 13:09 | Post Anesthesia Assessment ---
Date of Service April 02, 2019 Post Sedation Assessment Vital Signs Temp Pulse Pulse Resp BP BP Pulse Ox 04/02/19 12:56 87 18 115/46 L 98 04/02/19 12:51 87 20 106/42 L 99 04/02/19 12:50 86 20 106/42 L 100 04/02/19 12:45 85 20 121/39 L 100 04/02/19 12:40 88 20 121/39 L 100 04/02/19 12:35 87 20 118/44 L 100 04/02/19 12:30 92 H 24 118/44 L 98 04/02/19 12:25 89 22 111/50 L 100 04/02/19 12:20 89 20 132/41 L 100 04/02/19 12:15 89 21 132/41 L 100 04/02/19 12:10 91 H 21 112/56 L 98 04/02/19 12:05 92 H 20 112/68 100 04/02/19 12:00 94 H 23 129/51 L 100 04/02/19 11:55 91 H 21 129/51 L 98 04/02/19 11:50 93 H 20 123/48 L 98 04/02/19 11:37 94 H 20 143/48 H 98 04/02/19 10:48 37 C 93 H 18 107/48 L 97 04/02/19 07:54 36.8 C 81 15 92/59 L 96 04/01/19 23:59 37.5 C 94 H 14 113/67 98 04/01/19 15:31 37.3 C 88 18 95/62 L 94 04/01/19 14:00 95 H 18 93/60 L 96 04/01/19 13:28 37.1 C 93 H 116/54 L 04/01/19 13:23 93 H 116/54 L 04/01/19 13:20 90 91/22 L Recovery Score Activity: Moves 4 extremities Respiration: Deep Breath/Cough Circulation: +/-20% PreAnes Value Consciousness: Arouseable (by name) Oxygen Saturation: > 92% On Room Air Post Anesthesia Score: 9 Discharge Sedation Level of Care: Fast Track Phase II Post Sedation Plan On clinical assessment, the patient appears to have tolerated the sedation without complications. Patient is recovering as anticipated. Patient will continue to be monitored by nursing and may be discharged when sedation discharge criteria are met per below protocol. Upon Completions of procedure and additional 15 minutes continue every 5 minute vital signs and the P.A.R. score; then discharge to a Phase I or Fast Track to Phase II per the following guidelines: * Discharge Patient to appropriate Phase II area if PAR is 8 or greater or return to pre- procedure baseline. The post - procedure orders will be as directed. * If PAR score is less than 8 or not return to pre-procedure baseline then patient will follow Phase I monitoring till PAR is reached for Phase II. The Phase I may be done in procedure room or may call to secure a Phase I area. * If naloxone or flumazenil are used for reversal, hold in Phase I for continued monitoring from when last reversal dose was given for a minimum of 60 minutes or longer pending the nurse and/or physician discretion of patient condition before discharge to Phase II. Please call the Sedation Physician to re-evaluate and complete post-note for discharge to Phase II area. Do NOT discharge from procedure sedation or Phase 1 until post- sedation evaluation note is complete by procedure /sedation MD Sedation Discharge Instructions to be given to the patient at discharge to home.
--- NOTE | 2019-04-02 14:42 | Infectious Disease Progress Nt ---
Date of Service April 02, 2019 Assessment & Plan (1) Cellulitis of right hand: 58-year-old female with end-stage renal disease on dialysis deep right hand infection status post debridement, with persistent pain persistent pain and distal small artery obstruction. Cultures have grown corynebacterium, actinomyces, and anaerobes. Should be well covered with imipenem. Will follow. Subjective Patient seen in follow-up for right hand infection. Still complaining of severe pain. Had low-grade fever, currently afebrile. Review of Systems Review of Systems: All systems reviewed & are unremarkable except as noted in HPI & below Physical Exam Constitutional: WD/WN, vitals as above + acute distress and + ill appearing Eyes: PERRL, conjunctivae normal, anicteric sclerae ENMT: external ear and nose normal, oropharynx normal Neck: trachea midline, no thyromegaly neck nontender Respiratory: normal respiratory effort, lungs clear to auscultation normal percussion; no respiratory distress and does not use accessory muscles Cardiovascular: Rate/Rhythm: regular rate and regular rhythm Heart Sounds: normal S1 and normal S2; no gallop, no murmur and no cardiac rub Vessels: normal peripheral pulses; no JVD Gastrointestinal (Abdomen): normal bowel sounds, soft, nontender, no hepatosplenomegaly Musculoskeletal: no cyanosis or clubbing, extremities motor strength 5/5 Spine: thoracic spine normal to inspection and lumbar spine normal to inspection; no cervical spinal tenderness Skin: no rashes Neurologic: patellar DTR's 2+ bilat, sensation intact moves all extremities and awake; no focal motor deficits Motor/Sensory: no sensory deficit Psychiatric: A+Ox3, euthymic affect Orientation: cooperative Lymphatic: no cervical or axillary lymphadenopathy no inguinal lymphadenopathy Results & Data Vital Signs (Past 12 Hours) Vital Signs Temp Pulse Pulse Resp BP Pulse Ox 04/02/19 14:15 80 16 92/56 L 99 04/02/19 13:45 36.9 C 83 15 94/59 L 99 04/02/19 13:19 37.1 C 81 14 126/77 97 04/02/19 12:56 87 18 115/46 L 98 04/02/19 12:51 87 20 106/42 L 99 04/02/19 12:50 86 20 106/42 L 100 04/02/19 12:45 85 20 121/39 L 100 04/02/19 12:40 88 20 121/39 L 100 04/02/19 12:35 87 20 118/44 L 100 04/02/19 12:30 92 H 24 118/44 L 98 04/02/19 12:25 89 22 111/50 L 100 04/02/19 12:20 89 20 132/41 L 100 04/02/19 12:15 89 21 132/41 L 100 04/02/19 12:10 91 H 21 112/56 L 98 04/02/19 12:05 92 H 20 112/68 100 04/02/19 12:00 94 H 23 129/51 L 100 04/02/19 11:55 91 H 21 129/51 L 98 04/02/19 11:50 93 H 20 123/48 L 98 04/02/19 11:37 94 H 20 143/48 H 98 04/02/19 10:48 37 C 93 H 18 107/48 L 97 04/02/19 07:54 36.8 C 81 15 92/59 L 96 Laboratory Results [facility] 04/02/19 08:44 Sodium 137 D Potassium 4.0 Chloride 104 Carbon Dioxide 24 BUN 23 H Creatinine 5.17 H* D Glucose 131 H Calcium 8.9 Diagnostic Findings Microbiology 03/31/19 11:05 Blood Blood Culture - Preliminary No growth to date. 03/31/19 11:03 Blood Blood Culture - Preliminary No growth to date. 03/26/19 17:44 Hand,Right Gram Stain - Final 03/26/19 17:44 Hand,Right Aerobic and Anaerobic Culture - Final Corynebacterium species Actinomyces turicensis Probable juli gram neg bacilli 03/26/19 17:44 Hand,Right Gram Stain - Final 03/26/19 17:44 Hand,Right Aerobic and Anaerobic Culture - Final No growth 03/24/19 23:36 Blood Blood Culture - Final No growth 03/24/19 21:42 Blood Blood Culture - Final No growth
[2019-04-02] MEDS ORDERED: LACTATED RINGER'S 1,000 ML IV SCH (18:45)
[2019-04-02] MEDS: INSULIN GLARGINE SOLOSTAR 100 UNITS/ML 3 ML PEN SQ SCH (21:48)
[2019-04-02] MEDS: ATORVASTATIN 20 MG TAB PO SCH (21:52)
[2019-04-02] MEDS: SERTRALINE HCL 50 MG TABLET PO SCH (22:06)
[2019-04-02] MEDS: PRAMIPEXOLE DIHYDROCHLO 0.25 MG TAB PO SCH (22:12)
--- NOTE | 2019-04-02 23:54 | Hospitalist Progress Note ---
Date of Service April 02, 2019 Assessment & Plan (1) Osteomyelitis of hand, right, acute: Diabetic hand infection. CT hand on 03/25 showed osteomyelitis. - Seen by vascular, ortho, and ID - Appreciate recs - Had extensive washout and debridement on 03/[address] Izaguirre - multiple abscesses, partial amputations of the second metacarpal head and second proximal phalanx - Follow up deep wound cultures after surgery - wound does not appear to be healing well, - Had surgery on 03/31 amputated right index finger. -pain appears to be somehwat improved. will continue to monitor. - Continue vanc & imipenem/cilastatin (2) Ischemic finger: On 03/27, her right index finger became cool, mottled, and painful. I discussed this with Drs. Izaguirre, Derrick, and Isaiah, as well as a vascular surgeon from [place] in regards to any salvage therapy for the index finger. She was put on aspirin and Plavix. Heparin gtt was not done due to her INR being near therapeutic. Discussed calcium channel blockers or nitro, but it was not thought to be vasospasm-induced, so unlikely to help, and additionally her BP has been low-normal in the 90/60 range, so I do not think she would tolerate either therapy. Attempted to get u/s Dopplers of the hand arteries, but the tech could not get them through her dressing from the recent surgery. - CTA right hand on 03/28 showed: 1) flow in the radial, ulnar, superficial palmar, and deep palmar arteries 2) no flow within the digital artery along the radial aspect of the second finger 3) thrombosis of the proximal digital artery along the ulnar aspect of the second finger 4) moderate stenosis with near complete to complete occlusion involving the digital artery along the ulnar aspect of the third finger Had amputation as noted above. (3) Cellulitis: Right hand and arm. - Plan as above (4) End-stage renal disease on hemodialysis: On admission - K+ up to 6.8. - S/p HD on 03/25 - Continue Bumex & sevelamer - On 03/27, K+ was back up to 6.3; possibly from tissue breakdown. - HD failed on 03/27 in the AM; U/s showed patent AV fistula. AVF infiltrated a second time in the evening. - On 03/27 at ~10pm, she had an urgent femoral HD line placed by pulm/cc - Underwent HD overnight of 03/27-03/28 - Appreciate nephrology recs - Plan for HD on Friday if K+ remains normal. -Potassium remains normal. (5) Anemia: Anemia of chronic disease and CKD. - Baseline hgb ~11; on 03/25 was 10.0. Hgb 8.8 on 03/28, but stable from 03/27. - Monitor hgb (6) Atrial fibrillation: History of atrial fibrillation and CVA. Chads-Vasc of 6, making her a high-risk candidate. - Rate-controlled with metoprolol 25mg PO BID - Anticoagulation with warfarin - On presentation, her INR was 8.3 for which she received vitamin K 5mg IV x 1. - On 03/25, her INR was down to 2.0. On 03/26, INR was 1.4. - Monitor INR;. - INR therapuetic on 04/02. (7) Diabetes: A1c of 9.7% on 03/25. - Continue basal bolus insulin with sliding scale coverage - Glycemic pharmacist consult (8) Hypothyroidism: TSH was 0.2 on 03/26 with normal FT4. No signs/symptoms of hypo- /hyperthyroidism. - Continue home Synthroid 250 mcg - Will not change dose in setting of acute illness. (9) Restless leg syndrome: No current symptoms. - Continue ropinerole QHS (10) DVT prophylaxis: SCDs Spent 25 minutes in management of patient. Subjective Patienrt reports no new complaints today. Nurses states thatshe continues to ask for pain medicine frequently. Review of Systems Review of Systems: All systems reviewed & are unremarkable except as noted in HPI & below Physical Exam Physical Exam: Constitutional: WD/WN, vitals as above Respiratory: normal respiratory effort; no respiratory distress Cardiovascular: Rate/Rhythm: regular rate and regular rhythm Gastrointestinal (Abdomen): normal bowel sounds, soft, nontender, no hepatosplenomegaly Skin: dressing noted on hand. Neurologic: normal touch/pain/proprioception and CN's II-XI intact bilaterally Psychiatric: Orientation: alert and oriented x 3 Results & Data Vital Signs (Past 12 Hours) Vital Signs Temp Pulse Pulse Resp BP Pulse Ox 04/02/19 20:58 96/56 L 04/02/19 18:50 36.9 C 82 16 92/52 L 100 04/02/19 17:18 37 C 80 18 96/54 L 100 04/02/19 16:50 83 90/56 L 04/02/19 16:44 89/60 L 04/02/19 16:30 36.7 C 79 18 78/45 L 100 04/02/19 15:40 95/61 L 04/02/19 15:19 82 83/49 L 04/02/19 15:09 37.2 C 80 16 83/45 L 99 04/02/19 14:15 80 16 92/56 L 99 04/02/19 13:45 36.9 C 83 15 94/59 L 99 04/02/19 13:19 37.1 C 81 14 126/77 97 04/02/19 12:56 87 18 115/46 L 98 04/02/19 12:51 87 20 106/42 L 99 04/02/19 12:50 86 20 106/42 L 100 04/02/19 12:45 85 20 121/39 L 04/02/19 12:40 88 20 121/39 L 100 04/02/19 12:35 87 20 118/44 L 100 04/02/19 12:30 92 H 24 118/44 L 98 04/02/19 12:25 89 22 111/50 L 04/02/19 12:20 89 20 132/41 L 100 04/02/19 12:15 89 21 132/41 L 100 04/02/19 12:10 91 H 21 112/56 L 98 04/02/19 12:05 92 H 20 112/68 100 04/02/19 12:00 94 H 23 129/51 L 100 04/02/19 11:55 91 H 21 129/51 L 98
[2019-04-03] MEDS: IMIPENEM/CILASTATIN SODIUM 200 MG in DEXTROSE 5% 100 ML IV SCH ×4 (03:29→22:18)
[2019-04-03] MEDS: LEVOTHYROXINE SODIUM 50 MCG TABLET PO SCH (06:12)
[2019-04-03] MEDS: LEVOTHYROXINE SODIUM 200 MCG TABLET PO SCH (06:12)
[2019-04-03] MEDS ORDERED: SODIUM CHLORIDE 0.9% 1000ML 1,000 ML IV PRN (07:00)
[2019-04-03] MEDS: ASPIRIN 81 MG ECTAB PO SCH (08:35)
[2019-04-03] MEDS: SEVELAMER HCL 800 MG TABLET PO SCH ×3 (08:36→22:02)
[2019-04-03] MEDS: CALCIUM CARBONATE 500 MG CHEWABLE TAB PO SCH ×3 (08:36→22:02)
[2019-04-03] MEDS: CLOPIDOGREL BISULFATE 75 MG TAB PO SCH (08:36)
[2019-04-03] MEDS: BUMETANIDE 1 MG TAB PO SCH (08:36)
[2019-04-03] MEDS: CHOLECALCIFEROL 1,000 UNITS TAB PO SCH (08:36)
[2019-04-03] MEDS: METOPROLOL TARTRATE 25 MG TAB PO SCH ×2 (08:36→22:06)
[2019-04-03] MEDS: INSULIN ASPART 100 UNITS/ML 3 ML PEN SC SCH ×4 (08:38→22:07)
[2019-04-03] MEDS ORDERED: IRON SUCROSE 200 MG in SYRINGE 0 ML IV ONE (09:15)
[2019-04-03] MEDS ORDERED: EPOETIN ALFA 10,000 UNITS/ML VIAL SQ SCH (09:15)
--- NOTE | 2019-04-03 09:28 | Orthopedic Progress Note ---
Date of Service April 03, 2019 Assessment & Plan (1) Ischemic finger: POD#3 RIGHT HAND I&D, INDEX FINGER AMP, APPLICATION WOUND VAC Continue wound vac at this time. Will discuss need for any further surgery with Dr Colon. ID ON BOARD- ON IMIPENEM DISPOSITION PRIMARY TEAM. (2) Cellulitis of right hand: Continue IV antibx (3) Osteomyelitis of hand, right, acute: Infectious bone removed. Continue IV antibx. Subjective No acute events overnight. Remains afebrile. Some confusion noted. Denies dyspnea. Pain persists. Physical Exam Physical Exam: RIGHT HAND DRESSINGS C/D/I, NO VISUAL DRAINAGE, UNABLE TO WIGGLE FINGERS. LOOKS MORE COMFORTABLE TODAY. APPEARS SOMEWHAT CONUSED. Results & Data Vital Signs (Past 12 Hours) Vital Signs Temp Pulse Resp BP BP Pulse Ox 04/03/19 07:30 37.1 C 86 18 118/70 97 04/02/19 22:47 36.4 C L 89 16 95/61 L 100
[2019-04-03] MEDS: POLYETHYLENE (MIRALAX) 17 GM PACK PO SCH (09:43)
--- NOTE | 2019-04-03 12:46 | Nephrology Progress Note ---
Date of Service April 03, 2019 Assessment & Plan (1) End-stage renal disease on hemodialysis: -- HD TTS -- Orders entered into EMR and discussed with HD nurse -- BP chronically low but acceptable -- AVF with very weak thrill and poor bruit, remains significantly ecchymotic and tender, this is being rested for now -- RIJ permcath placed yesterday -- Medications appropriate for kidney function -- Renal diet (2) Cellulitis of right hand: -- Culture growing corynebacterium -- ID following (3) Anemia: -- Epogen 36641 given on 03/27/20 -- 200 mg IV venofer and additional 61624 units Epogen to be provided with HD today -- Check CBC, renal panel and iron profile with AM labs (4) Secondary hyperparathyroidism of renal origin: (5) Hyperkalemia: -- Improved with HD -- Low potassium diet -- Monitor metabolic profile QAM Subjective No acute events overnight. Remains afebrile. Eating with assistance. Limited ability to use arm due to pain. TDC placed yesterday without complications. Review of Systems Review of Systems: All systems reviewed & are unremarkable except as noted in HPI & below Physical Exam Constitutional: well developed and + obese; no acute distress Eyes: no scleral abnormality and no corneal abnormality ENMT: Mouth: no oral mucosal abnormality and oral mucous membranes not dry Neck: normal visual inspection and trachea midline Respiratory: no respiratory distress Auscultation: lungs clear to auscultation bilaterally Cardiovascular: Heart Sounds: normal S1 and normal S2 Extremities: + AV fistula (weak thrill and bruit, significant ecchymosis, tender to palpation) Gastrointestinal (Abdomen): Inspection/Auscultation: normal bowel sounds Percussion/Palpation: abdomen soft; abdomen nontender Musculoskeletal: Extremities: + limited ROM of extremities and + muscle atrophy Skin: + lesion and + ulcer; no rashes Neurologic: Motor/Sensory: no tremor and no asterixis Psychiatric: Affect: euthymic affect (notably improved today) Results & Data Vital Signs (Past 12 Hours) Vital Signs Temp Pulse Resp BP Pulse Ox 04/03/19 07:30 37.1 C 86 18 118/70 97 Laboratory Results Laboratory Results - last 24 hr 04/02/19 04/02/19 04/03/19 17:16 20:40 07:50 POC Glucose 150 H 136 H 164 H 04/03/19 12:24 POC Glucose 187 H
--- NOTE | 2019-04-03 15:28 | Pharmacy Report ---
Pharmacy Glycemic Short Note 2 - Date of Service April 03, 2019 - Glycemic Short BSG Results (Last 24 hours): 04/02/19 04/02/19 04/03/19 17:16 20:40 07:50 POC Glucose 150 H 136 H 164 H 04/03/19 12:24 POC Glucose 187 H ASSESSMENT: * Kortney received 14 units of insulin yesterday * 10 units of basal * 4 units of bolus * of note, patient was NPO for part of the day * Fasting BSG of 164 mg/dL is slightly above goal. I will continue current doses of Lantus ordered per scale but I will lower the BSG cut offs so that patient is more likely to receive dose of 12 units rather than 10 units. * Post prandial BSGs are slightly above goal, therefore I will tighten Novolog carb ratio. PLAN FOR INPATIENT GLYCEMIC CONTROL: * Basal insulin: * Lantus HS per scale as follows: - for BSG less than 120: give 10 units - for BSG 120 - 200: give 12 units - for BSG greater 200: give 15 units * Bolus insulin - tighten carb ratio * NovoLog per scale ACHS or Q6hrs while NPO * Goal Range: Low 110 mg/dL - High 140 mg/dL * Correction Factor: 20 mg/dL/unit * Nutritional / Prandial insulin per carb ratio of 1 unit per 6 grams CHO consumed
[2019-04-03] MEDS: HYDROmorphone INJ 1 MG/ML SYRINGE IV PRN ×4 (16:18→23:31)
--- NOTE | 2019-04-03 20:23 | Infectious Disease Progress Nt ---
Date of Service April 03, 2019 Assessment & Plan (1) Cellulitis of right hand: 58-year-old female with end-stage renal disease on dialysis deep right hand infection status post debridement, with persistent pain persistent pain and distal small artery obstruction. Cultures have grown corynebacterium, actinomyces, and anaerobes. Should be well covered with imipenem. Will follow. Subjective Follow-up for right hand infection, status post debridement. Continues with severe pain. No fever. Review of Systems Review of Systems: All systems reviewed & are unremarkable except as noted in HPI & below Physical Exam Constitutional: WD/WN, vitals as above + acute distress and + ill appearing Eyes: PERRL, conjunctivae normal, anicteric sclerae ENMT: external ear and nose normal, oropharynx normal Neck: trachea midline, no thyromegaly neck nontender Respiratory: normal respiratory effort, lungs clear to auscultation normal percussion; no respiratory distress and does not use accessory muscles Cardiovascular: Rate/Rhythm: regular rate and regular rhythm Heart Sounds: normal S1 and normal S2; no gallop, no murmur and no cardiac rub Vessels: normal peripheral pulses; no JVD Gastrointestinal (Abdomen): normal bowel sounds, soft, nontender, no hepatosplenomegaly Musculoskeletal: no cyanosis or clubbing, extremities motor strength 5/5 Spine: thoracic spine normal to inspection and lumbar spine normal to inspection; no cervical spinal tenderness Skin: no rashes Neurologic: patellar DTR's 2+ bilat, sensation intact moves all extremities and awake; no focal motor deficits Motor/Sensory: no sensory deficit Psychiatric: A+Ox3, euthymic affect Orientation: cooperative Lymphatic: no cervical or axillary lymphadenopathy no inguinal lymphadenopathy Results & Data Vital Signs (Past 12 Hours) Vital Signs Temp Pulse Pulse Resp BP BP Pulse Ox 04/03/19 20:00 82 104/35 L 04/03/19 19:40 84 89/32 L 04/03/19 19:20 89 83/24 L 04/03/19 19:00 82 78/28 L 04/03/19 18:40 81 86/28 L 04/03/19 18:20 84 87/24 L 04/03/19 18:00 102 H 95/50 L 04/03/19 17:40 88 103/36 L 04/03/19 17:20 84 112/35 L 04/03/19 17:00 88 155/63 H 04/03/19 16:43 36.8 C 83 04/03/19 15:00 36.9 C 71 18 100/44 L 100 Laboratory Results Laboratory Results - last 48 hr 04/01/19 04/02/19 04/02/19 20:32 07:57 08:44 PT 21.9 H INR 2.3 H Sodium Potassium Chloride Carbon Dioxide Anion Gap BUN Creatinine Est Cr Clr Drug Dosing Est GFR ( Amer) Est GFR (Non-Af Amer) BUN/Creatinine Ratio Glucose POC Glucose 131 H 128 H Calcium 04/02/19 04/02/19 04/02/19 08:44 10:56 17:16 PT INR Sodium 137 D Potassium 4.0 Chloride 104 Carbon Dioxide 24 Anion Gap 8.0 BUN 23 H Creatinine 5.17 H* D Est Cr Clr Drug Dosing 13.8 Est GFR ( Amer) 9.7 Est GFR (Non-Af Amer) 8.4 BUN/Creatinine Ratio 4.5 L Glucose 131 H POC Glucose 149 H 150 H Calcium 8.9 04/02/19 04/03/19 04/03/19 20:40 07:50 12:24 PT INR Sodium Potassium Chloride Carbon Dioxide Anion Gap BUN Creatinine Est Cr Clr Drug Dosing Est GFR ( Amer) Est GFR (Non-Af Amer) BUN/Creatinine Ratio Glucose POC Glucose 136 H 164 H 187 H Calcium Diagnostic Findings Microbiology 03/31/19 11:05 Blood Blood Culture - Preliminary No growth to date. 03/31/19 11:03 Blood Blood Culture - Preliminary No growth to date. 03/26/19 17:44 Hand,Right Gram Stain - Final 03/26/19 17:44 Hand,Right Aerobic and Anaerobic Culture - Final Corynebacterium species Actinomyces turicensis Probable juli gram neg bacilli 03/26/19 17:44 Hand,Right Gram Stain - Final 03/26/19 17:44 Hand,Right Aerobic and Anaerobic Culture - Final No growth 03/24/19 23:36 Blood Blood Culture - Final No growth 03/24/19 21:42 Blood Blood Culture - Final No growth
[2019-04-03] MEDS: SERTRALINE HCL 50 MG TABLET PO SCH (22:09)
[2019-04-03] MEDS: INSULIN GLARGINE SOLOSTAR 100 UNITS/ML 3 ML PEN SQ SCH (22:10)
[2019-04-03] MEDS: ATORVASTATIN 20 MG TAB PO SCH (22:12)
[2019-04-03] MEDS: PRAMIPEXOLE DIHYDROCHLO 0.25 MG TAB PO SCH (22:12)
--- NOTE | 2019-04-03 22:28 | Hospitalist Progress Note ---
Date of Service April 03, 2019 Assessment & Plan (1) Osteomyelitis of hand, right, acute: Diabetic hand infection. CT hand on 03/25 showed osteomyelitis. - Seen by vascular, ortho, and ID - Appreciate recs - Had extensive washout and debridement on 03/[address] Izaguirre - multiple abscesses, partial amputations of the second metacarpal head and second proximal phalanx - Follow up deep wound cultures after surgery - wound does not appear to be healing well, - Had surgery on 03/31 amputated right index finger. -pain appears to be somehwat improved. will continue to monitor. - Continue vanc & imipenem/cilastatin (2) Ischemic finger: On 03/27, her right index finger became cool, mottled, and painful. I discussed this with Drs. Izaguirre, Derrick, and Isaiah, as well as a vascular surgeon from [facility] in regards to any salvage therapy for the index finger. She was put on aspirin and Plavix. Heparin gtt was not done due to her INR being near therapeutic. Discussed calcium channel blockers or nitro, but it was not thought to be vasospasm-induced, so unlikely to help, and additionally her BP has been low-normal in the 90/60 range, so I do not think she would tolerate either therapy. Attempted to get u/s Dopplers of the hand arteries, but the tech could not get them through her dressing from the recent surgery. - CTA right hand on 03/28 showed: 1) flow in the radial, ulnar, superficial palmar, and deep palmar arteries 2) no flow within the digital artery along the radial aspect of the second finger 3) thrombosis of the proximal digital artery along the ulnar aspect of the second finger 4) moderate stenosis with near complete to complete occlusion involving the digital artery along the ulnar aspect of the third finger Had amputation as noted above. (3) Cellulitis: Right hand and arm. - Plan as above (4) End-stage renal disease on hemodialysis: On admission - K+ up to 6.8. - S/p HD on 03/25 - Continue Bumex & sevelamer - On 03/27, K+ was back up to 6.3; possibly from tissue breakdown. - HD failed on 03/27 in the AM; U/s showed patent AV fistula. AVF infiltrated a second time in the evening. - On 03/27 at ~10pm, she had an urgent femoral HD line placed by pulm/cc - Underwent HD overnight of 03/27-03/28 - Appreciate nephrology recs - Plan for HD on Friday if K+ remains normal. -Potassium remains normal. (5) Anemia: Anemia of chronic disease and CKD. - Baseline hgb ~11; on 03/25 was 10.0. Hgb 8.8 on 03/28, but stable from 03/27. - Monitor hgb (6) Atrial fibrillation: History of atrial fibrillation and CVA. Chads-Vasc of 6, making her a high-risk candidate. - Rate-controlled with metoprolol 25mg PO BID - Anticoagulation with warfarin - On presentation, her INR was 8.3 for which she received vitamin K 5mg IV x 1. - On 03/25, her INR was down to 2.0. On 03/26, INR was 1.4. - Monitor INR;. - INR therapuetic on 04/02. (7) Diabetes: A1c of 9.7% on 03/25. - Continue basal bolus insulin with sliding scale coverage - Glycemic pharmacist consult (8) Hypothyroidism: TSH was 0.2 on 03/26 with normal FT4. No signs/symptoms of hypo- /hyperthyroidism. - Continue home Synthroid 250 mcg - Will not change dose in setting of acute illness. (9) Restless leg syndrome: No current symptoms. - Continue ropinerole QHS (10) DVT prophylaxis: SCDs Spent 25 minutes in management of patient. Subjective Patient seen during dialysis. Patient appears to be more somnolent. Patient denies any new symptoms. STates pain is under control Review of Systems Review of Systems: Unobtainable due to mental health condition Physical Exam Physical Exam: Constitutional: WD/WN, vitals as above Respiratory: normal respiratory effort; no respiratory distress Cardiovascular: Rate/Rhythm: regular rate and regular rhythm Gastrointestinal (Abdomen): normal bowel sounds, soft, nontender, no hepatosplenomegaly Skin: dressing noted on hand. Neurologic: normal touch/pain/proprioception and CN's II-XI intact bilaterally Psychiatric: Orientation: alert and oriented x 3 Results & Data Vital Signs (Past 12 Hours) Vital Signs Temp Pulse Pulse Resp BP BP BP 04/03/19 22:05 92 H 82/52 L 04/03/19 21:05 37.1 C 96 H 18 105/55 L 04/03/19 20:45 37.2 C 91 H 91 H 107/40 L 107/40 L 04/03/19 20:40 91 H 91/32 L 04/03/19 20:20 94 H 85/29 L 04/03/19 20:00 82 104/35 L 04/03/19 19:40 84 89/32 L 04/03/19 19:20 89 83/24 L 04/03/19 19:00 82 78/28 L 04/03/19 18:40 81 86/28 L 04/03/19 18:20 84 87/24 L 04/03/19 18:00 102 H 95/50 L 04/03/19 17:40 88 103/36 L 04/03/19 17:20 84 112/35 L 04/03/19 17:00 88 155/63 H 04/03/19 16:43 36.8 C 83 04/03/19 15:00 36.9 C 71 18 100/44 L Pulse Ox 04/03/19 22:05 04/03/19 21:05 99 04/03/19 20:45 04/03/19 20:40 04/03/19 20:20 04/03/19 20:00 04/03/19 19:40 04/03/19 19:20 04/03/19 19:00 04/03/19 18:40 04/03/19 18:20 04/03/19 18:00 04/03/19 17:40 04/03/19 17:20 04/03/19 17:00 04/03/19 16:43 04/03/19 15:00 100
[2019-04-04] MEDS: ACETAMINOPHEN 500 MG TAB PO PRN (00:15)
[2019-04-04] MEDS ORDERED: LORazepam 0.5 MG TAB PO STA (01:26)
[2019-04-04] MEDS ORDERED: LACTATED RINGER'S 250 ML IV ONE (01:26)
[2019-04-04] MEDS: IMIPENEM/CILASTATIN SODIUM 200 MG in DEXTROSE 5% 100 ML IV SCH ×4 (02:02→21:53)
--- NOTE | 2019-04-04 03:16 | Progress Note ---
Date of Service April 04, 2019 Received a page that the patient underwent dialysis today. Overnight her BP was as low as 70/43. Per nurse, patient was crying and yelling to have her dressing taken off her hand. Apparently patient keeps biting at her hand as well. Brief record review notes admission for a hand infection s/p amputation. There have been prior references to some confusion over the past few days. Discussed case briefly with Dr. Ribera. Treated empirically with 250 ml IVF bolus and PO ativan. Spoke with patient's nurse on the floor outside of patient's room around 3 am. She says patient seems a bit more calm now but she continues to want to unwrap her hand and bite at it. BP is up to 84/51. Russ Littlejohn, PGY2 Overnight call Results & Data Vital Signs (Past 12 Hours) Vital Signs Temp Pulse Pulse Resp BP BP Pulse Ox 04/04/19 02:23 84/51 L 04/03/19 23:45 37.3 C 96 H 16 77/46 L 97 04/03/19 22:05 92 H 82/52 L 04/03/19 21:05 37.1 C 96 H 18 105/55 L 99 04/03/19 20:45 37.2 C 91 H 91 H 107/40 L 107/40 L 04/03/19 20:40 91 H 91/32 L 04/03/19 20:20 94 H 85/29 L 04/03/19 20:00 82 104/35 L 04/03/19 19:40 84 89/32 L 04/03/19 19:20 89 83/24 L 04/03/19 19:00 82 78/28 L 04/03/19 18:40 81 86/28 L 04/03/19 18:20 84 87/24 L 04/03/19 18:00 102 H 95/50 L 04/03/19 17:40 88 103/36 L 04/03/19 17:20 84 112/35 L 04/03/19 17:00 88 155/63 H 04/03/19 16:43 36.8 C 83
[2019-04-04] MEDS: HYDROmorphone INJ 1 MG/ML SYRINGE IV PRN ×4 (04:32→23:48)
[2019-04-04] MEDS: LEVOTHYROXINE SODIUM 200 MCG TABLET PO SCH (04:36)
[2019-04-04] MEDS: LEVOTHYROXINE SODIUM 50 MCG TABLET PO SCH (04:36)
[2019-04-04] MEDS ORDERED: INSULIN GLARGINE SOLOSTAR 100 UNITS/ML 3 ML PEN SQ ONE (08:15)
[2019-04-04 09:00] LABS: Hematocrit (blood only) 24.1 % (37-47); Hemoglobin 7.6 g/dL (12.0-16.0); Mean Corpuscular Hgb Conc 31.5 g/dL (32-36); Mean Corpuscular Volume 98.8 fL (80-100); Mean Platelet Volume 9.8 fL (7.4-10.4); Platelet Count 305 K/uL (130-400); RDW Coefficient of Variation 14.5 % (11.5-14.5); RDW Standard Deviation 51.7 fL (36.4-46.3); Red Blood Count 2.44 M/uL (4.2-5.4); White Blood Count 10.22 K/uL (4.8-10.8)
[2019-04-04] MEDS: CHOLECALCIFEROL 1,000 UNITS TAB PO SCH (09:19)
[2019-04-04] MEDS: CLOPIDOGREL BISULFATE 75 MG TAB PO SCH (09:19)
[2019-04-04] MEDS: METOPROLOL TARTRATE 25 MG TAB PO SCH ×2 (09:19→21:52)
[2019-04-04] MEDS: SEVELAMER HCL 800 MG TABLET PO SCH ×3 (09:20→17:24)
[2019-04-04] MEDS: CALCIUM CARBONATE 500 MG CHEWABLE TAB PO SCH ×3 (09:21→17:24)
[2019-04-04] MEDS: BUMETANIDE 1 MG TAB PO SCH (09:21)
[2019-04-04] MEDS: POLYETHYLENE (MIRALAX) 17 GM PACK PO SCH (09:22)
[2019-04-04] MEDS: ASPIRIN 81 MG ECTAB PO SCH (09:22)
[2019-04-04] MEDS: INSULIN ASPART 100 UNITS/ML 3 ML PEN SC SCH ×4 (09:25→21:16)
[2019-04-04 09:41] LABS: Albumin Level 2.1 gm/dl (3.4-5.0); BUN Creatinine Ratio 4.8 (10-20); Calcium 8.4 mg/dl (8.5-10.1); Creatinine Clr Calc Pharmacy 14.2 ml/min; Est GFR (African American) 10.1; Est GFR (Non-African American) 8.7; Ferritin 1912.1 ng/ml (8-388); Phosphorus 2.5 mg/dl (2.5-4.9); Potassium 4.5 mmol/L (3.5-5.1)
--- NOTE | 2019-04-04 09:48 | Orthopedic Progress Note ---
Date of Service April 04, 2019 Assessment & Plan (1) Ischemic finger: POD#4 RIGHT HAND I&D, INDEX FINGER AMP, APPLICATION WOUND VAC Will discuss need for any further surgery with Dr Colon. ID ON BOARD- ON IMIPENEM DISPOSITION PRIMARY TEAM. Wound vac removed and sterile dressing applied by me. (2) Cellulitis of right hand: Continue IV antibx (3) Osteomyelitis of hand, right, acute: Infectious bone removed. Continue IV antibx. Subjective No acute events overnight. Remains afebrile. Eating with assistance. Limited ability to use arm due to pain. Pain the main issue still, per nursing wound vac is not holding suction, machine is beeping and reading errors and patient is pulling and biting at the wound vac. Physical Exam Physical Exam: Right hand wound dry, tendon exposed, some erythema btw thumb and index web space, no drainage. Results & Data Vital Signs (Past 12 Hours) Vital Signs Temp Pulse Resp BP BP Pulse Ox 04/04/19 07:49 36.8 C 95 H 18 96/65 L 95 04/04/19 04:14 111 H 113/71 04/04/19 02:23 84/51 L 04/03/19 23:45 37.3 C 96 H 16 77/46 L 97 04/03/19 22:05 92 H 82/52 L
--- NOTE | 2019-04-04 11:12 | Nephrology Progress Note ---
Date of Service April 04, 2019 Assessment & Plan (1) End-stage renal disease on hemodialysis: -- HD TTS -- UF 700 ml yesterday -- Treatment performed via Permcath: venous return pressure elevated throughout, arterial pressure also slightly elevated but acceptable -- Adequate Qb via catheter -- Hopefully, will be able to return to using AVF next week, in the interim TDC intact -- BP chronically low -- AVF with very weak thrill and poor bruit, remains significantly ecchymotic and tender, this is being rested for now -- RIJ permcath placed 04/02/19 -- Medications appropriate for kidney function -- Renal diet (2) Cellulitis of right hand: -- Culture + corynebacterium -- ID following -- Patient remains on imipenem -- POD#4 s/p I&D and index finger amputation (3) Anemia: -- Epogen 76045 units provided with HD yesterday -- Tsat 65% and ferritin >1000 -- Hgb low but stable -- Monitor H/H pre HD (4) Secondary hyperparathyroidism of renal origin: Subjective Intermittent confusion persists. Tolerated HD well yesterday, UF 700 ml. Unfortunately, venous return pressures were slightly high during treatment. Hypotensive with treatment. BP notably low yesterday evening and 500 ml fluid bolus provided overnight. Kortney was sitting comfortably in bed this morning. Intermittent confusion persists. No fevers or chills. Appetite is fair. Patient continues to struggle with pain. The right arm remains too sensitive to touch during exam today. Review of Systems Review of Systems: All systems reviewed & are unremarkable except as noted in HPI & below Physical Exam Constitutional: well developed and + obese; no acute distress Eyes: no scleral abnormality and no corneal abnormality ENMT: Mouth: no oral mucosal abnormality and oral mucous membranes not dry Neck: normal visual inspection and trachea midline Respiratory: no respiratory distress Auscultation: lungs clear to auscultation bilaterally Cardiovascular: Heart Sounds: normal S1 and normal S2 Extremities: + AV fistula (weak thrill and bruit, significant ecchymosis, tender to palpation) Chest (Breasts): Chest: + vascular access device or port Gastrointestinal (Abdomen): Inspection/Auscultation: normal bowel sounds Percussion/Palpation: abdomen soft; abdomen nontender Musculoskeletal: Extremities: + limited ROM of extremities and + muscle atrophy Skin: + lesion and + ulcer; no rashes Neurologic: Motor/Sensory: no tremor and no asterixis Psychiatric: Affect: euthymic affect (notably improved today) Mood: + depressed mood Results & Data Vital Signs (Past 12 Hours) Vital Signs Temp Pulse Resp BP BP Pulse Ox 04/04/19 07:49 36.8 C 95 H 18 96/65 L 95 04/04/19 04:14 111 H 113/71 04/04/19 02:23 84/51 L 04/03/19 23:45 37.3 C 96 H 16 77/46 L 97 Laboratory Results Laboratory Results - last 24 hr 04/03/19 04/03/19 04/04/19 12:24 21:38 08:07 WBC RBC Hgb Hct MCV MCH MCHC RDW Std Deviation RDW Coeff of Tommy Plt Count MPV Sodium Potassium Chloride Carbon Dioxide Anion Gap BUN Creatinine Est Cr Clr Drug Dosing Est GFR ( Amer) Est GFR (Non-Af Amer) BUN/Creatinine Ratio Glucose POC Glucose 187 H 138 H 194 H Calcium Phosphorus Iron Transferrin Transferrin % Sat Ferritin Albumin 04/04/19 04/04/19 08:41 08:41 WBC 10.22 RBC 2.44 L Hgb 7.6 L Hct 24.1 L MCV 98.8 MCH 31.1 MCHC 31.5 L RDW Std Deviation 51.7 H RDW Coeff of Tommy 14.5 Plt Count 305 MPV 9.8 Sodium 134 L Potassium 4.5 Chloride 104 Carbon Dioxide 23 Anion Gap 7.0 BUN 24 H Creatinine 5.01 H* Est Cr Clr Drug Dosing 14.2 Est GFR ( Amer) 10.1 Est GFR (Non-Af Amer) 8.7 BUN/Creatinine Ratio 4.8 L Glucose 183 H POC Glucose Calcium 8.4 L Phosphorus 2.5 Iron 107 Transferrin 116 L Transferrin % Sat 65 H Ferritin 1912.1 H Albumin 2.1 L
[2019-04-04] MEDS: HYDROCODONE/ACETAMOPHEN 5/325MG TAB PO PRN ×2 (12:06→18:55)
--- NOTE | 2019-04-04 14:54 | Pharmacy Report ---
Pharmacy Glycemic Short Note 2 - Date of Service April 04, 2019 - Glycemic Short BSG Results (Last 24 hours): 04/03/19 04/04/19 04/04/19 21:38 08:07 08:41 Glucose 183 H POC Glucose 138 H 194 H 04/04/19 12:13 Glucose POC Glucose 172 H OUTPATIENT REGIMEN: * Lantus 20 units SQ BID * Humalog ASSESSMENT: * Kortney received 27 units of insulin yesterday with decent glycemic control: * 12 units of basal * 15 units of bolus * Fasting BSG of 194 mg/dL is above goal. Fasting BSG trending upward (128 -> 164 -> 194 mg/dL). An additional 5 units of Lantus was given this AM. * Novolog carb ratio was tightened yesterday. Post prandial BSGs acceptable. I will continue the same for now. PLAN FOR INPATIENT GLYCEMIC CONTROL: * Basal insulin: * Lantus 5 units SQ x 1 this AM * Continue Lantus HS per scale: - for BSG less than 120: give 10 units - for BSG 120 - 200: give 12 units - for BSG greater 200: give 15 units * Bolus insulin - no changes * NovoLog per scale ACHS or Q6hrs while NPO * Goal Range: Low 110 mg/dL - High 140 mg/dL * Correction Factor: 20 mg/dL/unit * Nutritional / Prandial insulin per carb ratio of 1 unit per 6 grams CHO consumed
[2019-04-04] MEDS: INSULIN GLARGINE SOLOSTAR 100 UNITS/ML 3 ML PEN SQ SCH (21:16)
[2019-04-04] MEDS: ATORVASTATIN 20 MG TAB PO SCH (21:52)
[2019-04-04] MEDS: SERTRALINE HCL 50 MG TABLET PO SCH (21:53)
[2019-04-04] MEDS: PRAMIPEXOLE DIHYDROCHLO 0.25 MG TAB PO SCH (21:53)
--- NOTE | 2019-04-04 22:38 | Hospitalist Progress Note ---
Date of Service April 04, 2019 Assessment & Plan (1) Osteomyelitis of hand, right, acute: Diabetic hand infection. CT hand on 03/25 showed osteomyelitis. - Seen by vascular, ortho, and ID - Appreciate recs - Had extensive washout and debridement on 03/[address] Izaguirre - multiple abscesses, partial amputations of the second metacarpal head and second proximal phalanx - Follow up deep wound cultures after surgery - wound does not appear to be healing well, - Had surgery on 03/31 amputated right index finger. -pain appears to be somehwat improved. will continue to monitor. - Continue only imipenem/cilastatin (2) Ischemic finger: On 03/27, her right index finger became cool, mottled, and painful. I discussed this with Drs. Izaguirre, Derrick, and Isaiah, as well as a vascular surgeon from [place] in regards to any salvage therapy for the index finger. She was put on aspirin and Plavix. Heparin gtt was not done due to her INR being near therapeutic. Discussed calcium channel blockers or nitro, but it was not thought to be vasospasm-induced, so unlikely to help, and additionally her BP has been low-normal in the 90/60 range, so I do not think she would tolerate either therapy. Attempted to get u/s Dopplers of the hand arteries, but the tech could not get them through her dressing from the recent surgery. - CTA right hand on 03/28 showed: 1) flow in the radial, ulnar, superficial palmar, and deep palmar arteries 2) no flow within the digital artery along the radial aspect of the second finger 3) thrombosis of the proximal digital artery along the ulnar aspect of the second finger 4) moderate stenosis with near complete to complete occlusion involving the digital artery along the ulnar aspect of the third finger Had amputation as noted above. (3) Cellulitis: Right hand and arm. - Plan as above (4) End-stage renal disease on hemodialysis: On admission - K+ up to 6.8. - S/p HD on 03/25 - Continue Bumex & sevelamer - On 03/27, K+ was back up to 6.3; possibly from tissue breakdown. - HD failed on 03/27 in the AM; U/s showed patent AV fistula. AVF infiltrated a second time in the evening. - On 03/27 at ~10pm, she had an urgent femoral HD line placed by pulm/cc - Underwent HD overnight of 03/27-03/28 - Appreciate nephrology recs - Plan for HD on Friday if K+ remains normal. -Potassium remains normal. (5) Anemia: Anemia of chronic disease and CKD. - Baseline hgb ~11; on 03/25 was 10.0. Hgb 8.8 on 03/28, but stable from 03/27. - Monitor hgb -Hemoglobin dropped below 8 on 04/04. will recheck in AM. (6) Atrial fibrillation: History of atrial fibrillation and CVA. Chads-Vasc of 6, making her a high-risk candidate. - Rate-controlled with metoprolol 25mg PO BID - Anticoagulation with warfarin - On presentation, her INR was 8.3 for which she received vitamin K 5mg IV x 1. - On 03/25, her INR was down to 2.0. On 03/26, INR was 1.4. - Monitor INR;. - INR therapuetic on 04/02. will recheck in AM. will resume warfari as patient does not appear to be having any further surgery. (7) Diabetes: A1c of 9.7% on 03/25. - Continue basal bolus insulin with sliding scale coverage - Glycemic pharmacist consult (8) Hypothyroidism: TSH was 0.2 on 03/26 with normal FT4. No signs/symptoms of hypo- /hyperthyroidism. - Continue home Synthroid 250 mcg - Will not change dose in setting of acute illness. (9) Restless leg syndrome: No current symptoms. - Continue ropinerole QHS (10) DVT prophylaxis: SCDs Spent 25 minutes in management of patient. Subjective Patient appears to be doing well. Patient reports pain is better controlled. Patient is concerned over her lost cell phone. Review of Systems Review of Systems: All systems reviewed & are unremarkable except as noted in HPI & below Physical Exam Physical Exam: Constitutional: WD/WN, vitals as above Respiratory: normal respiratory effort; no respiratory distress Cardiovascular: Rate/Rhythm: regular rate and regular rhythm Gastrointestinal (Abdomen): normal bowel sounds, soft, nontender, no hepatosplenomegaly Skin: dressing noted on hand. Neurologic: normal touch/pain/proprioception and CN's II-XI intact bilaterally Psychiatric: Orientation: alert and oriented x 3 Results & Data Vital Signs (Past 12 Hours) Vital Signs Temp Pulse Resp BP BP Pulse Ox 04/04/19 22:32 36.7 C 105 H 18 138/79 99 04/04/19 21:49 93 H 111/68 04/04/19 20:00 92 H 91/53 L 04/04/19 19:54 130/101 H 04/04/19 15:09 36.7 C 87 18 105/69 100
[2019-04-05] MEDS: IMIPENEM/CILASTATIN SODIUM 200 MG in DEXTROSE 5% 100 ML IV SCH ×4 (02:23→21:21)
[2019-04-05] MEDS: HYDROmorphone INJ 1 MG/ML SYRINGE IV PRN ×5 (05:38→21:05)
[2019-04-05] MEDS: LEVOTHYROXINE SODIUM 50 MCG TABLET PO SCH (05:38)
[2019-04-05] MEDS: LEVOTHYROXINE SODIUM 200 MCG TABLET PO SCH (05:38)
[2019-04-05] MEDS: CALCIUM CARBONATE 500 MG CHEWABLE TAB PO SCH ×3 (08:28→16:14)
[2019-04-05] MEDS: CHOLECALCIFEROL 1,000 UNITS TAB PO SCH (08:28)
[2019-04-05] MEDS: CLOPIDOGREL BISULFATE 75 MG TAB PO SCH (08:28)
[2019-04-05] MEDS: ASPIRIN 81 MG ECTAB PO SCH (08:29)
[2019-04-05] MEDS: BUMETANIDE 1 MG TAB PO SCH (08:29)
[2019-04-05] MEDS: POLYETHYLENE (MIRALAX) 17 GM PACK PO SCH (08:29)
[2019-04-05] MEDS: SEVELAMER HCL 800 MG TABLET PO SCH ×3 (08:29→16:13)
[2019-04-05] MEDS: INSULIN ASPART 100 UNITS/ML 3 ML PEN SC SCH ×4 (08:33→21:09)
[2019-04-05] MEDS: METOPROLOL TARTRATE 25 MG TAB PO SCH ×2 (08:47→21:14)
[2019-04-05] MEDS ORDERED: INSULIN GLARGINE SOLOSTAR 100 UNITS/ML 3 ML PEN SC ONE (09:00)
[2019-04-05 09:27] LABS: Hemoglobin 7.9 g/dL (12.0-16.0); Mean Corpuscular Hgb Conc 31.6 g/dL (32-36); Mean Platelet Volume 9.9 fL (7.4-10.4); Platelet Count 327 K/uL (130-400); RDW Coefficient of Variation 14.7 % (11.5-14.5); RDW Standard Deviation 51.9 fL (36.4-46.3); Red Blood Count 2.55 M/uL (4.2-5.4); White Blood Count 10.58 K/uL (4.8-10.8)
[2019-04-05 09:36] LABS: INR 1.9 (0.9-1.1); Prothrombin Time 18.5 Seconds (9.0-12.0)
[2019-04-05 10:17] LABS: BUN Creatinine Ratio 5.3 (10-20); Calcium 8.9 mg/dl (8.5-10.1); Creatinine Clr Calc Pharmacy 11.3 ml/min; Est GFR (African American) 7.7; Est GFR (Non-African American) 6.6; Potassium 4.6 mmol/L (3.5-5.1)
--- NOTE | 2019-04-05 10:41 | Pharmacy Report ---
Pharmacy Glycemic Short Note 2 - Date of Service April 05, 2019 - Glycemic Short BSG Results (Last 24 hours): 04/04/19 04/04/19 04/04/19 12:13 16:59 20:46 Glucose POC Glucose 172 H 126 H 130 H 04/05/19 04/05/19 08:27 09:10 Glucose 151 H POC Glucose 141 H OUTPATIENT REGIMEN: * Lantus 20 units SQ BID * Humalog ASSESSMENT: 04/05 * Patient received 34 units of insulin yesterday with good glycemic control: * 17 units of basal * 17 units of bolus * Fasting BSG improved with additional lantus yesterday, 141 this AM * Will split lantus with morning dose and adjusted scale pm for equivalent dosing * Post prandial BSGs continue to be within range. Will continue same today. 04/04 * Kortney received 27 units of insulin yesterday with decent glycemic control: * 12 units of basal * 15 units of bolus * Fasting BSG of 194 mg/dL is above goal. Fasting BSG trending upward (128 -> 164 -> 194 mg/dL). An additional 5 units of Lantus was given this AM. * Novolog carb ratio was tightened yesterday. Post prandial BSGs acceptable. I will continue the same for now. PLAN FOR INPATIENT GLYCEMIC CONTROL: * Basal insulin: * Lantus 8 units x1 this morning * Continue Lantus HS per scale: - for BSG <180 give 8 units - for BSG 180 or greater 12 units * Bolus insulin - no changes * NovoLog per scale ACHS or Q6hrs while NPO * Goal Range: Low 110 mg/dL - High 140 mg/dL * Correction Factor: 20 mg/dL/unit * Nutritional / Prandial insulin per carb ratio of 1 unit per 6 grams CHO consumed
--- NOTE | 2019-04-05 11:02 | Nephrology Progress Note ---
Date of Service April 05, 2019 Assessment & Plan (1) End-stage renal disease on hemodialysis: -- Volume status and electrolyte balance are acceptable. Will plan next HD for am -- AVF with very weak thrill and poor bruit, remains significantly ecchymotic and tender, this is being rested for now -- RIJ permcath placed 04/02/19 -- Renal diet (2) Cellulitis of right hand: -- Culture + corynebacterium -- ID following -- Patient remains on imipenem -- POD#5 s/p I&D and index finger amputation (3) Anemia: -- Epogen 05640 units provided with HD Friday -- Tsat 65% and ferritin >1000 -- Hgb improved from 7.6 to 7.9. Will monitor (4) Secondary hyperparathyroidism of renal origin: Subjective Ms. Ardon was seen & examined in her hospital room this morning. She complains of persistent R hand discomfort. She was last dialyzed Friday via [facility]. She currently denies dyspnea or uremic symptoms Review of Systems Respiratory: no dyspnea Cardiovascular: no chest pain Gastrointestinal: no abdominal pain, no vomiting and no diarrhea/loose stools Physical Exam Neck: trachea midline, no thyromegaly Respiratory: normal respiratory effort, lungs clear to auscultation Cardiovascular: RRR, no murmur, no edema Extremities: + AV fistula (palpable thrill. Soft bruit. Large area of surrounding ecchymosis) Gastrointestinal (Abdomen): normal bowel sounds, soft, nontender, no hepatosplenomegaly Results & Data Vital Signs (Past 12 Hours) Vital Signs Temp Pulse Resp BP Pulse Ox 04/05/19 08:46 36.5 C 89 16 126/74 98 Laboratory Results Laboratory Tests 04/04/19 04/04/19 08:41 08:41 WBC 10.22 Hgb 7.6 L Hct 24.1 L Plt Count 305 Sodium 134 L Potassium 4.5 Chloride 104 Carbon Dioxide 23 BUN 24 H Creatinine 5.01 H* Glucose 183 H
--- NOTE | 2019-04-05 12:04 | Orthopedic Progress Note ---
Date of Service April 05, 2019 Assessment & Plan (1) Ischemic finger: POD#5 RIGHT HAND I&D, INDEX FINGER AMP Wound care following, recs appreciated decided against wound VAC at this time. Likely require repeat I&D, n.p.o. after midnight, will discuss with hand team. ID ON BOARD- ON IMIPENEM DISPOSITION PRIMARY TEAM. Nonweightbearing right upper extremity Ice and elevation (2) Cellulitis of right hand: Continue IV antibx (3) Osteomyelitis of hand, right, acute: Infectious bone removed. Continue IV antibx. Subjective Post Operative Progress Note Patient seen sitting in chair at bedside, comfortable however complains of pain with any movement or physical contact with the hand, denies complaints at this time. Review of Systems Review of Systems: All systems reviewed & are unremarkable except as noted in HPI & below Constitutional: as per Subjective / HPI Physical Exam Physical Exam: Right upper extremity neurovascular sensory intact, increase in edema and serous drainage, there is exposed tendon. Dressing currently clean dry and intact Constitutional: WD/WN, vitals as above Results & Data Vital Signs (Past 12 Hours) Vital Signs Temp Pulse Resp BP Pulse Ox 04/05/19 08:46 36.5 C 89 16 126/74 98
--- NOTE | 2019-04-05 13:25 | Psychiatric Consultation ---
Date of Consultation April 05, 2019 Impression / Recommendations Impression 58-year-old female with reported history of confusion at baseline. Patient was admitted due to cellulitis of her right hand, unwilling to allow dressings to remain on her hand to prevent her from biting the wound. Primary medical team reports concern for delirium, and is requesting assistance with agitated behaviors. No significant recommendation at this time would be for clearing consistent behavioral management for delirium. Recommending avoidance of deliriogenic medications, frequent orientation to person place and time, allowing patient to have personal items in room as appropriate (i.e. familiar b lanket, stuffed animal, pillow) to improve orientation, keeping patient awake and active during the day and encouraging sleep and keeping the room dark at night in order to avoid daytime/nighttime confusion or alter sleep patterns. Continue to explore techniques to manage patient behavioral, especially with biting behavior of the affected hand. Can consider low-dose antipsychotic medications, but would highly recommend that these be reserved only for situations in which patient is displaying behavior which demonstrates a risk of harm to self or to staff. Given the fact that these medications can also affect mental status or cause sedation, would suggest limited use of these medications. If necessary could trial low-dose quetiapine (12.5mg - 25mg) to manage agitated behaviors. Would highly recommend the primary team recheck EKG to assess QTc interval prior to initiation of antipsychotic medications. Given the fact that patient was already significantly drowsy at the time of this provider's interview, would also caution against use of medications that could further increase sedation, as may also contribute to AMS. Patient's behaviors are likely related to what appears to be delirium, therefore she is not appropriate for inpatient psychiatric admission. Would suggest continued medical treatment per primary team's recommendations. Dr. Maggie Ceballos was directly involved in review and discussion of the patient's case and participated in medical decision making regarding treatment recommendations. Risk Factors Assessment Do You Have Access To A Gun?: No CPT Code Initial Consultation: 57839 Psych History Identifying Data 58-year-old female admitted medically on 03/24/19 due to cellulitis of her right hand believed to be related to history of diabetes. At time of psychiatric consultation, the patient has been admitted for 12 days and has received several interventions for the infection. Psychiatric consultation is requested to assess patient for delirium and agitation, as staff has reported the patient continues to rip off her dressings. Information is gathered from hospital documentation, as patient is unable to participate at time of interview. Chief Complaint "Oh, hi..." History of Present Illness Kortney Ardon is a 58-year-old female admitted medically on 03/24/2019 for a diabetic infection of her right hand. So far, the patient's hospitalization has lasted 12 days, and she is received several interventions to address the infection. Per information provided by psychiatric liaison nurse, the patient is reported to be confused at baseline and has a history of biting on her wound causing the repeated infections. Psychiatric consultation was requested due to concern for delirium and agitation. At time of my assessment, the patient is unable to participate in evaluation due to level of fatigue. Patient is arousable with verbal stimuli; however, is unable to remain awake long enough to hear questions let alone provide answers. Although unable to fully assess patient's mental status, replies provided by the patient appeared to be appropriate for the questions asked. Patient apologizes for her level of fatigue, but is unable to remain late awake long enough for a productive interview. Patient participates enough to inform this provider that the dressings are not comfortable. This provider reinforced the importance of allowing the dressings to remain in place to prevent further infections or complications. Concerns passed along by staff include reports that patient has been removing her own dressing and at one point staff had been unable to decipher speech, with patient reporting she was "speaking tongue and that it was a language that only God can understand." It was also reported that the patient had refused blood work this morning and had dialed 911 giving reports that staff was "not helping her." Aside from continued biting of the infection site, these were the only's concerns reported by staff regarding patient's behavior or agitation. Past Psychiatric History Previous Psych History: Patient reports initiation of sertraline several years ago after the of her parents. No reports of inpatient psychiatric treatment or other serious psychiatric history. It is reported the patient had been seeing a psychiatrist and a counselor in [place]. Do You Have Access To A Gun?: No Allergies Allergy/AdvReac Type Severity Reaction Status Date / Time oxycodone Allergy Intermediate HIVES,RASH Verified 03/24/19 16:46 Sulfa (Sulfonamide Allergy Intermediate HIVES,RASH Verified 03/24/19 16:46 Antibiotics) cephalexin Allergy Mild HIVES Verified 03/24/19 16:46 Penicillins Allergy Mild RASH Verified 03/24/19 16:46 Dyazide Allergy Unknown UNKNOWN Verified 05/08/18 11:24 hydrochlorothiazide Allergy Unknown UNKNOWN Verified 03/24/19 16:46 Sulfonylureas Allergy Unknown UNKNOWN Verified 03/24/19 16:46 triamterene Allergy Unknown UNKNOWN Verified 03/24/19 16:46 CARBONIC Allergy Unknown UNKNOWN Uncoded 03/24/19 16:46 Home Medications Home Medications Medication Instructions Recorded Confirmed Type acetaminophen 1,000 mg PO Q6H PRN MDD 3 GRAMS/24 11/26/18 03/24/19 History HOURS acetaminophen 650 mg PO Q6 PRN MDD 3 GRAMS/24 11/26/18 03/24/19 History HOURS atorvastatin 20 mg PO HS 11/26/18 03/24/19 History bisacodyl 5 mg PO DAILY PRN 11/26/18 03/24/19 History bisacodyl 10 mg OK DAILY PRN 11/26/18 03/24/19 History bumetanide 2 mg PO DAILY 11/26/18 03/24/19 History calcium carbonate [Tums] 400 mg PO AC 11/26/18 03/24/19 History cholecalciferol (vitamin D3) 2,000 units PO DAILY 11/26/18 03/24/19 History docusate sodium 100 mg PO BID PRN 11/26/18 03/24/19 History hydrocodone-acetaminophen 1 tab PO Q6 PRN 11/26/18 03/24/19 History insulin glargine [Lantus Solostar 20 units SUBCUT BID 11/26/18 03/24/19 History U-100 Insulin] insulin lispro [Humalog U-100 7 units SUBCUT AMHS 11/26/18 03/24/19 History Insulin] insulin lispro [Humalog U-100 9 units SUBCUT BID 11/26/18 03/24/19 History Insulin] levothyroxine 50 mcg PO DAILY 11/26/18 03/24/19 History levothyroxine 200 mcg PO DAILY 11/26/18 03/24/19 History melatonin 3 mg PO HS PRN 11/26/18 03/24/19 History metoprolol tartrate 25 mg PO BID 11/26/18 03/24/19 History polyethylene glycol 3350 17 g PO DAILY 11/26/18 03/24/19 History pramipexole 0.25 mg PO HS 11/26/18 03/24/19 History sennosides [senna] 8.6 mg PO HS PRN 11/26/18 03/24/19 History sertraline 37.5 mg PO HS 11/26/18 03/24/19 History sevelamer carbonate 800 mg PO TIDM 11/26/18 03/24/19 History sodium bicarbonate 650 mg PO 4XWK 11/26/18 03/24/19 History warfarin 3 mg PO 4XWK 11/26/18 03/24/19 History Selan Silver Protectant 1 applic TOPICAL BID 03/24/19 History lidocaine-prilocaine 1 applic TOPICAL DIRECTED PRN 03/24/19 03/24/19 History linezolid 600 mg PO Q12H 03/24/19 03/24/19 History mupirocin 1 applic TOPICAL DAILY 03/24/19 03/24/19 History tramadol 50 mg PO Q4 PRN 03/24/19 03/24/19 History vancomycin 1 g IV DAILY 03/24/19 03/24/19 History warfarin 2.5 mg PO 3XWK 03/24/19 04/05/19 History Family History Both parents , history is unknown. Substance Abuse History Patient denied drug and alcohol abuse or addiction to psychiatric liaison nurse. Personal History Living Arrangements: [facility] ([place], [place]) Born In: Grew up in [place] Employment Status: Unemployed Marital Status: Number Of Children: 3 children ages 26, 25, and 23 - 2 daughters, 1 son Beliefs That Will Affect Care: None Patient History Medical History Azotemia End-stage renal disease on hemodialysis Dialysis AV fistula malfunction Anemia Hyponatremia Secondary hyperparathyroidism of renal origin AV fistula infection AV fistula Diabetes mellitus, type 2 Hemodialysis patient Hyperlipidemia Hypertension Hypothyroidism MRSA (methicillin resistant Staphylococcus aureus) Shingles Stroke Surgical History H/O section History of cholecystectomy History of hand surgery Family History Unknown Diabetes Social History Preferred Language: Croatian Communication Ability: Effective Beliefs That Will Affect Care: None marital status: Current Living Situation: [facility] Other Information That Helps Us Care for You: No Feels Safe at Home: Yes Safety Concerns: Feels Safe At This Time Smoking Status: Former smoker Smoking End Date: 2017 Hx Alcohol Use: Yes Hx Substance Use: No Physical Exam Psychiatric: Orientation: + not alert and + not oriented x 3 (Unable to fully assess due to level of fatigue) Apperance: appropriately dressed (In hospital gown) and + disheveled Obese-appearing female laying in bed resting. Opens eyes only brief during conversation. Short, rivero hair is somewhat disheveled. Right hand wrapped in gauze dressing, left arm flexed and somewhat contorted while laying in bed Eye Contact: + poor eye contact (Awakening only briefly with verbal stimuli) Motor Behavior: no abnormal motor movements (Observed while laying in bed, dozing off to sleep) Speech: normal rate/rhythm/volume of speech (Brief responses to questions) Affect: + blunted affect (Appearing very drowsy) Patient unable to provide any information regarding her mood Unable to adequately assess Unable to adequately assess Insight: + impaired insight Judgement: + impaired judgement Vital Signs (Past 24 Hours): Last Vital Signs Temp 36.5 C 04/05/19 08:46 Pulse 89 04/05/19 08:46 Resp 16 04/05/19 08:46 BP 126/74 04/05/19 08:46 Pulse Ox 98 04/05/19 08:46 Review of Systems Patient unable to participate and complete review of systems at time of initial assessment. Results & Data Medications Administered Acetaminophen (Tylenol) 1,000 mg PO Q6H PRN PRN Reason: Fever Stop: 04/25/19 18:52 Last Admin: 04/04/19 00:15 Dose: 1,000 mg Documented by: [id number] Hydrocodone Bitart/Acetaminophen ([place] 5/325) 1 tab PO Q6 PRN PRN Reason: Pain Stop: 04/09/19 18:52 Last Admin: 04/04/19 18:55 Dose: 1 tab Documented by: [id number] Admin: 04/04/19 12:06 Dose: 1 tab Documented by: [id number] Admin: 04/02/19 01:33 Dose: 1 tab Documented by: [id number] Admin: 04/01/19 16:58 Dose: 1 tab Documented by: [id number] Admin: 04/01/19 08:35 Dose: 1 tab Documented by: [id number] Admin: 03/31/19 22:15 Dose: 1 tab Documented by: [id number] Admin: 03/30/19 19:20 Dose: 1 tab Documented by: [id number] Admin: 03/30/19 14:19 Dose: 1 tab Documented by: [id number] Admin: 03/29/19 18:59 Dose: 1 tab Documented by: [id number] Admin: 03/29/19 10:17 Dose: 1 tab Documented by: [id number] Admin: 03/28/19 19:58 Dose: 1 tab Documented by: [id number] Admin: 03/28/19 12:14 Dose: 1 tab Documented by: [id number] Admin: 03/27/19 12:18 Dose: 1 tab Documented by: [id number] Admin: 03/26/19 21:46 Dose: 1 tab Documented by: [id number] Aspirin (Ecotrin Ectab) 81 mg PO DAILY DELANEY Stop: 04/26/19 18:59 Last Admin: 04/05/19 08:29 Dose: 81 mg Documented by: [id number] Admin: 04/04/19 09:22 Dose: 81 mg Documented by: [id number] Admin: 04/03/19 08:35 Dose: 81 mg Documented by: [id number] Admin: 04/02/19 08:04 Dose: 81 mg Documented by: [id number] Admin: 04/01/19 08:31 Dose: 81 mg Documented by: [id number] Admin: 03/31/19 09:00 Dose: Not Given Documented by: [id number] Admin: 03/30/19 08:37 Dose: 81 mg Documented by: [id number] Admin: 03/28/19 11:20 Dose: 81 mg Documented by: [id number] Admin: 03/28/19 09:09 Dose: 81 mg Documented by: [id number] Admin: 03/27/19 22:04 Dose: Not Given Documented by: [id number] Atorvastatin Calcium (Lipitor) 20 mg PO HS DELANEY Stop: 04/23/19 20:59 Last Admin: 04/04/19 21:52 Dose: 20 mg Documented by: [id number] Admin: 04/03/19 22:12 Dose: 20 mg Documented by: [id number] Admin: 04/02/19 21:52 Dose: 20 mg Documented by: [id number] Admin: 04/01/19 20:31 Dose: 20 mg Documented by: [id number] Admin: 03/31/19 20:57 Dose: 20 mg Documented by: [id number] Admin: 03/30/19 21:49 Dose: 20 mg Documented by: [id number] Admin: 03/29/19 21:45 Dose: 20 mg Documented by: [id number] Admin: 03/28/19 20:08 Dose: 20 mg Documented by: [id number] Admin: 03/27/19 22:25 Dose: 20 mg Documented by: [id number] Admin: 03/26/19 21:45 Dose: 20 mg Documented by: [id number] Admin: 03/25/19 21:00 Dose: 20 mg Documented by: [id number] Admin: 03/24/19 22:28 Dose: 20 mg Documented by: [id number] Bumetanide (Bumex) 2 mg PO DAILY DELANEY Stop: 04/24/19 08:59 Last Admin: 04/05/19 08:29 Dose: 2 mg Documented by: [id number] Admin: 04/04/19 09:21 Dose: 2 mg Documented by: [id number] Admin: 04/03/19 08:36 Dose: 2 mg Documented by: [id number] Admin: 04/02/19 08:05 Dose: 2 mg Documented by: [id number] Admin: 04/01/19 08:30 Dose: 2 mg Documented by: [id number] Admin: 03/31/19 09:01 Dose: Not Given Documented by: [id number] Admin: 03/30/19 08:38 Dose: 2 mg Documented by: [id number] Admin: 03/29/19 09:08 Dose: 2 mg Documented by: [id number] Admin: 03/28/19 09:09 Dose: 2 mg Documented by: [id number] Admin: 03/27/19 07:19 Dose: 2 mg Documented by: [id number] Admin: 03/26/19 08:49 Dose: 2 mg Documented by: [id number] Admin: 03/25/19 08:56 Dose: 2 mg Documented by: [id number] Calcium Carbonate (Tums) 1,000 mg PO AC DELANEY Stop: 04/24/19 07:29 Last Admin: 04/05/19 12:29 Dose: 1,000 mg Documented by: [id number] Admin: 04/05/19 08:28 Dose: 1,000 mg Documented by: [id number] Admin: 04/04/19 17:24 Dose: 1,000 mg Documented by: [id number] Admin: 04/04/19 12:07 Dose: 1,000 mg Documented by: [id number] Admin: 04/04/19 09:21 Dose: 1,000 mg Documented by: [id number] Admin: 04/03/19 22:02 Dose: Not Given Documented by: [id number] Admin: 04/03/19 12:40 Dose: 1,000 mg Documented by: [id number] Admin: 04/03/19 08:36 Dose: 1,000 mg Documented by: [id number] Admin: 04/02/19 16:45 Dose: 1,000 mg Documented by: [id number] Admin: 04/02/19 12:23 Dose: Not Given Documented by: [id number] Admin: 04/02/19 08:05 Dose: 1,000 mg Documented by: [id number] Admin: 04/01/19 18:34 Dose: 1,000 mg Documented by: [id number] Admin: 04/01/19 13:59 Dose: 1,000 mg Documented by: [id number] Admin: 04/01/19 08:31 Dose: 1,000 mg Documented by: [id number] Admin: 03/31/19 15:51 Dose: 1,000 mg Documented by: [id number] Admin: 03/31/19 11:12 Dose: Not Given Documented by: [id number] Admin: 03/31/19 09:01 Dose: Not Given Documented by: [id number] Admin: 03/30/19 18:40 Dose: 1,000 mg Documented by: [id number] Admin: 03/30/19 13:48 Dose: 1,000 mg Documented by: [id number] Admin: 03/30/19 08:37 Dose: 1,000 mg Documented by: [id number] Admin: 03/29/19 17:32 Dose: 1,000 mg Documented by: [id number] Admin: 03/29/19 12:45 Dose: 1,000 mg Documented by: [id number] Admin: 03/29/19 09:09 Dose: 1,000 mg Documented by: [id number] Admin: 03/28/19 17:00 Dose: 1,000 mg Documented by: [id number] Admin: 03/28/19 11:22 Dose: Not Given Documented by: [id number] Admin: 03/28/19 10:26 Dose: Not Given Documented by: [id number] Admin: 03/27/19 17:07 Dose: Not Given Documented by: [id number] Admin: 03/27/19 11:14 Dose: Not Given Documented by: [id number] Admin: 03/27/19 07:19 Dose: Not Given Documented by: [id number] Admin: 03/26/19 19:07 Dose: Not Given Documented by: [id number] Admin: 03/26/19 13:26 Dose: 1,000 mg Documented by: [id number] Admin: 03/26/19 08:49 Dose: 1,000 mg Documented by: [id number] Admin: 03/25/19 18:37 Dose: Not Given Documented by: [id number] Admin: 03/25/19 14:05 Dose: 1,000 mg Documented by: [id number] Admin: 03/25/19 07:56 Dose: 1,000 mg Documented by: [id number] Clopidogrel Bis[facility] (Pl[facility]ix) [facility] Stop: 04/26/19 18:59 Last Admin: 04/05/19 08:28 Dose: 75 mg Documented by: [id number] Admin: 04/04/19 09:19 Dose: 75 mg Documented by: [id number] Admin: 04/03/19 08:36 Dose: 75 mg Documented by: [id number] Admin: 04/02/19 08:04 Dose: 75 mg Documented by: [id number] Admin: 04/01/19 08:30 Dose: 75 mg Documented by: [id number] Admin: 03/30/19 08:37 Dose: 75 mg Documented by: [id number] Admin: 03/29/19 09:08 Dose: 75 mg Documented by: [id number] Admin: 03/28/19 09:09 Dose: 75 mg Documented by: [id number] Admin: 03/27/19 22:04 Dose: Not Given Documented by: [id number] Hydromorphone HCl (Dilaudid) 1 mg IV Q2H PRN PRN Reason: Moderate Pain Stop: 04/11/19 14:10 Last Admin: 04/05/19 12:28 Dose: 1 mg Documented by: [id number] Admin: 04/05/19 09:06 Dose: 1 mg Documented by: [id number] Admin: 04/05/19 05:38 Dose: 1 mg Documented by: [id number] Admin: 04/04/19 23:48 Dose: 1 mg Documented by: [id number] Admin: 04/04/19 20:19 Dose: 1 mg Documented by: [id number] Admin: 04/04/19 14:46 Dose: 1 mg Documented by: [id number] Admin: 04/04/19 04:32 Dose: 1 mg Documented by: [id number] Admin: 04/03/19 20:06 Dose: 1 mg Documented by: [id number] Admin: 04/03/19 18:03 Dose: 1 mg Documented by: [id number] Admin: 04/03/19 16:18 Dose: 1 mg Documented by: [id number] Admin: 04/02/19 09:45 Dose: 1 mg Documented by: [id number] Admin: 04/02/19 04:11 Dose: 1 mg Documented by: [id number] Admin: 04/02/19 00:16 Dose: 1 mg Documented by: [id number] Admin: 04/01/19 20:38 Dose: 1 mg Documented by: [id number] Admin: 04/01/19 18:08 Dose: 1 mg Documented by: [id number] Admin: 04/01/19 13:56 Dose: 1 mg Documented by: [id number] Admin: 04/01/19 11:56 Dose: 1 mg Documented by: [id number] Admin: 04/01/19 09:51 Dose: 1 mg Documented by: [id number] Admin: 04/01/19 07:35 Dose: 1 mg Documented by: [id number] Admin: 04/01/19 05:28 Dose: 1 mg Documented by: [id number] Admin: 04/01/19 00:38 Dose: 1 mg Documented by: [id number] Admin: 03/31/19 22:41 Dose: 1 mg Documented by: [id number] Admin: 03/31/19 20:40 Dose: 1 mg Documented by: [id number] Admin: 03/31/19 15:45 Dose: 1 mg Documented by: [id number] Admin: 03/31/19 13:48 Dose: 1 mg Documented by: [id number] Admin: 03/31/19 11:24 Dose: 1 mg Documented by: [id number] Admin: 03/31/19 09:01 Dose: 1 mg Documented by: [id number] Admin: 03/31/19 07:20 Dose: 1 mg Documented by: [id number] Admin: 03/31/19 03:06 Dose: 1 mg Documented by: [id number] Admin: 03/31/19 00:25 Dose: 1 mg Documented by: [id number] Admin: 03/30/19 19:37 Dose: 1 mg Documented by: [id number] Admin: 03/30/19 18:55 Dose: 1 mg Documented by: [id number] Admin: 03/30/19 14:39 Dose: 1 mg Documented by: [id number] Admin: 03/30/19 13:47 Dose: 1 mg Documented by: [id number] Admin: 03/30/19 10:01 Dose: 1 mg Documented by: [id number] Admin: 03/30/19 07:39 Dose: 1 mg Documented by: [id number] Admin: 03/30/19 05:13 Dose: 1 mg Documented by: [id number] Admin: 03/30/19 02:06 Dose: 1 mg Documented by: [id number] Admin: 03/29/19 21:36 Dose: 1 mg Documented by: [id number] Admin: 03/29/19 18:59 Dose: 1 mg Documented by: [id number] Admin: 03/29/19 11:25 Dose: 1 mg Documented by: [id number] Imipenem/Cilastatin Sodium 200 (mg/ Dextrose) 108 mls @ 100 mls/hr IV Q6H DELANEY; Protocol Stop: 05/05/19 21:59 Last Infusion: 04/05/19 10:14 Dose: 0 mls/hr Documented by: [id number] Admin: 04/05/19 08:52 Dose: 100 mls/hr Documented by: [id number] Infusion: 04/05/19 03:24 Dose: 0 mls/hr Documented by: [id number] Admin: 04/05/19 02:23 Dose: 100 mls/hr Documented by: [id number] Infusion: 04/04/19 22:58 Dose: 0 mls/hr Documented by: [id number] Admin: 04/04/19 21:53 Dose: 100 mls/hr Documented by: [id number] Infusion: 04/04/19 15:34 Dose: 0 mls/hr Documented by: [id number] Admin: 04/04/19 14:26 Dose: 100 mls/hr Documented by: [id number] Infusion: 04/04/19 11:06 Dose: 0 mls/hr Documented by: [id number] Admin: 04/04/19 09:32 Dose: 100 mls/hr Documented by: [id number] Infusion: 04/04/19 03:07 Dose: 0 mls/hr Documented by: [id number] Admin: 04/04/19 02:02 Dose: 100 mls/hr Documented by: [id number] Infusion: 04/03/19 23:25 Dose: 0 mls/hr Documented by: [id number] Admin: 04/03/19 22:18 Dose: 100 mls/hr Documented by: [id number] Infusion: 04/03/19 16:17 Dose: 0 mls/hr Documented by: [id number] Admin: 04/03/19 14:53 Dose: 100 mls/hr Documented by: [id number] Infusion: 04/03/19 10:54 Dose: 0 mls/hr Documented by: [id number] Admin: 04/03/19 09:43 Dose: 100 mls/hr Documented by: [id number] Infusion: 04/03/19 04:34 Dose: 0 mls/hr Documented by: [id number] Admin: 04/03/19 03:29 Dose: 100 mls/hr Documented by: [id number] Infusion: 04/02/19 22:57 Dose: 0 mls/hr Documented by: [id number] Admin: 04/02/19 21:52 Dose: 100 mls/hr Documented by: [id number] Infusion: 04/02/19 15:26 Dose: 0 mls/hr Documented by: [id number] Admin: 04/02/19 14:20 Dose: 100 mls/hr Documented by: [id number] Infusion: 04/02/19 09:02 Dose: 0 mls/hr Documented by: [id number] Admin: 04/02/19 07:59 Dose: 100 mls/hr Documented by: [id number] Infusion: 04/02/19 05:06 Dose: 0 mls/hr Documented by: [id number] Admin: 04/02/19 04:01 Dose: 100 mls/hr Documented by: [id number] Infusion: 04/01/19 21:40 Dose: 0 mls/hr Documented by: [id number] Admin: 04/01/19 20:35 Dose: 100 mls/hr Documented by: [id number] Infusion: 04/01/19 15:52 Dose: 0 mls/hr Documented by: [id number] Admin: 04/01/19 14:47 Dose: 100 mls/hr Documented by: [id number] Admin: 04/01/19 09:09 Dose: Not Given Documented by: [id number] Infusion: 04/01/19 03:52 Dose: 0 mls/hr Documented by: [id number] Admin: 04/01/19 02:37 Dose: 100 mls/hr Documented by: [id number] Infusion: 03/31/19 22:33 Dose: 0 mls/hr Documented by: [id number] Admin: 03/31/19 21:15 Dose: 100 mls/hr Documented by: [id number] Infusion: 03/31/19 15:49 Dose: 0 mls/hr Documented by: [id number] Admin: 03/31/19 14:43 Dose: 100 mls/hr Documented by: [id number] Infusion: 03/31/19 10:20 Dose: 0 mls/hr Documented by: [id number] Admin: 03/31/19 09:05 Dose: 100 mls/hr Documented by: [id number] Infusion: 03/31/19 04:15 Dose: 0 mls/hr Documented by: [id number] Admin: 03/31/19 03:06 Dose: 100 mls/hr Documented by: [id number] Infusion: 03/30/19 23:04 Dose: 0 mls/hr Documented by: [id number] Admin: 03/30/19 21:46 Dose: 100 mls/hr Documented by: [id number] Infusion: 03/30/19 15:02 Dose: 0 mls/hr Documented by: [id number] Admin: 03/30/19 13:57 Dose: 100 mls/hr Documented by: [id number] Infusion: 03/30/19 05:17 Dose: 0 mls/hr Documented by: [id number] Admin: 03/30/19 04:08 Dose: 100 mls/hr Documented by: [id number] Infusion: 03/29/19 23:04 Dose: 0 mls/hr Documented by: [id number] Admin: 03/29/19 21:47 Dose: 100 mls/hr Documented by: [id number] Infusion: 03/29/19 19:33 Dose: 0 mls/hr Documented by: [id number] Admin: 03/29/19 17:29 Dose: 100 mls/hr Documented by: [id number] Infusion: 03/29/19 12:41 Dose: 0 mls/hr Documented by: [id number] Admin: 03/29/19 11:25 Dose: 100 mls/hr Documented by: [id number] Infusion: 03/29/19 05:18 Dose: 0 mls/hr Documented by: [id number] Admin: 03/29/19 03:58 Dose: 100 mls/hr Documented by: [id number] Infusion: 03/28/19 23:01 Dose: 0 mls/hr Documented by: [id number] Admin: 03/28/19 21:28 Dose: 100 mls/hr Documented by: [id number] Infusion: 03/28/19 18:11 Dose: 0 mls/hr Documented by: [id number] Admin: 03/28/19 16:59 Dose: 100 mls/hr Documented by: [id number] Infusion: 03/28/19 11:24 Dose: 0 mls/hr Documented by: [id number] Admin: 03/28/19 10:08 Dose: 100 mls/hr Documented by: [id number] Infusion: 03/28/19 06:37 Dose: 0 mls/hr Documented by: [id number] Admin: 03/28/19 05:23 Dose: 100 mls/hr Documented by: [id number] Infusion: 03/27/19 23:39 Dose: 0 mls/hr Documented by: [id number] Admin: 03/27/19 22:28 Dose: 100 mls/hr Documented by: [id number] Infusion: 03/27/19 17:49 Dose: 0 mls/hr Documented by: [id number] Admin: 03/27/19 16:38 Dose: 100 mls/hr Documented by: [id number] Infusion: 03/27/19 14:40 Dose: 0 mls/hr Documented by: [id number] Admin: 03/27/19 11:13 Dose: 100 mls/hr Documented by: [id number] Infusion: 03/27/19 08:00 Dose: 0 mls/hr Documented by: [id number] Admin: 03/27/19 05:18 Dose: 100 mls/hr Documented by: [id number] Infusion: 03/26/19 23:17 Dose: 0 mls/hr Documented by: [id number] Admin: 03/26/19 21:46 Dose: 100 mls/hr Documented by: [id number] Admin: 03/26/19 19:44 Dose: Not Given Documented by: [id number] Infusion: 03/26/19 09:58 Dose: 0 mls/hr Documented by: [id number] Admin: 03/26/19 08:48 Dose: 100 mls/hr Documented by: [id number] Infusion: 03/26/19 05:23 Dose: 0 mls/hr Documented by: [id number] Admin: 03/26/19 04:18 Dose: 100 mls/hr Documented by: [id number] Infusion: 03/25/19 22:16 Dose: 100 mls/hr Documented by: [id number] Admin: 03/25/19 21:01 Dose: 100 mls/hr Documented by: [id number] Infusion: 03/25/19 18:39 Dose: 0 mls/hr Documented by: [id number] Admin: 03/25/19 17:04 Dose: 100 mls/hr Documented by: [id number] Infusion: 03/25/19 13:59 Dose: 0 mls/hr Documented by: [id number] Infusion: 03/25/19 09:47 Dose: 0 mls/hr Documented by: [id number] Admin: 03/25/19 08:56 Dose: 100 mls/hr Documented by: [id number] Infusion: 03/25/19 05:40 Dose: 0 mls/hr Documented by: [id number] Admin: 03/25/19 04:35 Dose: 100 mls/hr Documented by: [id number] Infusion: 03/24/19 23:35 Dose: 0 mls/hr Documented by: [id number] Admin: 03/24/19 22:27 Dose: 100 mls/hr Documented by: [id number] Insulin Aspart (Novolog Flexpen) 0 units SC [facility]; Protocol Stop: 05/02/19 16:29 Last Admin: 04/05/19 12:57 Dose: 8 units Documented by: [id number] Cosigned by: [id number] Admin: 04/05/19 08:33 Dose: 9 units Documented by: [id number] Cosigned by: [id number] Admin: 04/04/19 21:16 Dose: Not Given Documented by: [id number] Cosigned by: [id number] Admin: 04/04/19 18:30 Dose: 1 units Documented by: [id number] Cosigned by: [id number] Admin: 04/04/19 13:13 Dose: 7 units Documented by: [id number] Cosigned by: [id number] Admin: 04/04/19 09:25 Dose: 9 units Documented by: [id number] Cosigned by: [id number] Admin: 04/03/19 22:07 Dose: Not Given Documented by: [id number] Cosigned by: [id number] Admin: 04/03/19 21:34 Dose: Not Given Documented by: [id number] Cosigned by: [id number] Admin: 04/03/19 12:52 Dose: 7 units Documented by: [id number] Cosigned by: [id number] Admin: 04/03/19 08:38 Dose: 8 units Documented by: [id number] Cosigned by: [id number] Admin: 04/02/19 21:49 Dose: Not Given Documented by: [id number] Cosigned by: [id number] Admin: 04/02/19 18:19 Dose: 4 units Documented by: [id number] Cosigned by: [id number] Insulin Glargine (Lantus Solostar Pen) 0 units SQ HS [facility]; Protocol Stop: 04/28/19 20:59 Last Admin: 04/04/19 21:16 Dose: 12 units Documented by: [id number] Cosigned by: [id number] Admin: 04/03/19 22:10 Dose: 12 units Documented by: [id number] Cosigned by: [id number] Admin: 04/02/19 21:48 Dose: 10 units Documented by: [id number] Cosigned by: [id number] Admin: 04/01/19 20:39 Dose: 10 units Documented by: [id number] Cosigned by: [id number] Admin: 03/31/19 21:01 Dose: 10 units Documented by: [id number] Cosigned by: [id number] Admin: 03/30/19 21:55 Dose: 10 units Documented by: [id number] Cosigned by: [id number] Admin: 03/29/19 21:40 Dose: 12 units Documented by: [id number] Cosigned by: [id number] Iodixanol (Visipaque) 15 ml IV UD PRN PRN Reason: Interaction Checking Stop: 04/06/19 12:34 Last Admin: 04/02/19 12:36 Dose: 15 ml Documented by: [id number] Levothyroxine Sodium (Synthroid) 50 mcg PO DAILYBB [facility] Stop: 04/24/19 06:29 Last Admin: 04/05/19 05:38 Dose: 50 mcg Documented by: [id number] Admin: 04/04/19 04:36 Dose: 50 mcg Documented by: [id number] Admin: 04/03/19 06:12 Dose: 50 mcg Documented by: [id number] Admin: 04/02/19 04:09 Dose: 50 mcg Documented by: [id number] Admin: 04/01/19 05:30 Dose: 50 mcg Documented by: [id number] Admin: 03/31/19 05:28 Dose: Not Given Documented by: [id number] Admin: 03/30/19 06:38 Dose: 50 mcg Documented by: [id number] Admin: 03/29/19 05:21 Dose: 50 mcg Documented by: [id number] Admin: 03/28/19 06:16 Dose: 50 mcg Documented by: [id number] Admin: 03/27/19 07:42 Dose: 50 mcg Documented by: [id number] Admin: 03/26/19 06:05 Dose: 50 mcg Documented by: [id number] Admin: 03/25/19 06:50 Dose: 50 mcg Documented by: [id number] Levothyroxine Sodium (Synthroid) 200 mcg PO DAILYBB [facility] Stop: 04/24/19 06:29 Last Admin: 04/05/19 05:38 Dose: 200 mcg Documented by: [id number] Admin: 04/04/19 04:36 Dose: 200 mcg Documented by: [id number] Admin: 04/03/19 06:12 Dose: 200 mcg Documented by: [id number] Admin: 04/02/19 04:08 Dose: 200 mcg Documented by: [id number] Admin: 04/01/19 05:30 Dose: 200 mcg Documented by: [id number] Admin: 03/31/19 05:28 Dose: Not Given Documented by: [id number] Admin: 03/30/19 06:37 Dose: 200 mcg Documented by: [id number] Admin: 03/29/19 05:21 Dose: 200 mcg Documented by: [id number] Admin: 03/28/19 06:16 Dose: 200 mcg Documented by: [id number] Admin: 03/27/19 07:42 Dose: 200 mcg Documented by: [id number] Admin: 03/26/19 06:05 Dose: 200 mcg Documented by: [id number] Admin: 03/25/19 06:49 Dose: 200 mcg Documented by: [id number] Metoprolol Tartrate (Lopressor) 25 mg PO BID [facility] Stop: 04/23/19 20:59 Last Admin: 04/05/19 08:47 Dose: 25 mg Documented by: [id number] Admin: 04/04/19 21:52 Dose: 25 mg Documented by: [id number] Admin: 04/04/19 09:19 Dose: Not Given Documented by: [id number] Admin: 04/03/19 22:06 Dose: Not Given Documented by: [id number] Admin: 04/03/19 08:36 Dose: 25 mg Documented by: [id number] Admin: 04/02/19 20:50 Dose: Not Given Documented by: [id number] Admin: 04/02/19 08:05 Dose: 25 mg Documented by: [id number] Admin: 04/01/19 20:35 Dose: Not Given Documented by: [id number] Admin: 03/31/19 22:17 Dose: 25 mg Documented by: [id number] Admin: 03/31/19 20:57 Dose: Not Given Documented by: [id number] Admin: 03/31/19 09:00 Dose: Not Given Documented by: [id number] Admin: 03/30/19 21:54 Dose: Not Given Documented by: [id number] Admin: 03/30/19 08:39 Dose: Not Given Documented by: [id number] Admin: 03/29/19 20:18 Dose: Not Given Documented by: [id number] Admin: 03/29/19 09:08 Dose: 25 mg Documented by: [id number] Admin: 03/28/19 20:08 Dose: Not Given Documented by: [id number] Admin: 03/28/19 11:19 Dose: Not Given Documented by: [id number] Admin: 03/27/19 22:25 Dose: 25 mg Documented by: [id number] Admin: 03/27/19 07:52 Dose: 25 mg Documented by: [id number] Admin: 03/26/19 21:45 Dose: 25 mg Documented by: [id number] Admin: 03/26/19 08:48 Dose: 25 mg Documented by: [id number] Admin: 03/25/19 20:39 Dose: Not Given Documented by: [id number] Admin: 03/25/19 07:58 Dose: 25 mg Documented by: [id number] Admin: 03/24/19 22:28 Dose: 25 mg Documented by: [id number] Ondansetron HCl (Zofran) 4 mg IV Q6H PRN PRN Reason: Nausea Stop: 04/23/19 20:56 Last Admin: 04/04/19 04:32 Dose: 4 mg Documented by: [id number] Polyethylene Glycol (Miralax Powder Packet) 17 gm PO DAILY [facility] Stop: 04/24/19 08:59 Last Admin: 04/05/19 08:29 Dose: 17 gm Documented by: [id number] Admin: 04/04/19 09:22 Dose: 17 gm Documented by: [id number] Admin: 04/03/19 09:43 Dose: 17 gm Documented by: [id number] Admin: 04/02/19 10:39 Dose: 17 gm Documented by: [id number] Admin: 04/01/19 08:36 Dose: 17 gm Documented by: [id number] Admin: 03/31/19 09:00 Dose: Not Given Documented by: [id number] Admin: 03/30/19 08:39 Dose: 17 gm Documented by: [id number] Admin: 03/29/19 09:09 Dose: 17 gm Documented by: [id number] Admin: 03/28/19 10:26 Dose: Not Given Documented by: [id number] Admin: 03/27/19 07:20 Dose: Not Given Documented by: [id number] Admin: 03/26/19 08:49 Dose: Not Given Documented by: [id number] Admin: 03/25/19 07:59 Dose: 17 gm Documented by: [id number] Pramipexole Dihydrochloride (Mirapex) 0.25 mg PO HS [facility] Stop: 04/23/19 20:59 Last Admin: 04/04/19 21:53 Dose: 0.25 mg Documented by: [id number] Admin: 04/03/19 22:12 Dose: 0.25 mg Documented by: [id number] Admin: 04/02/19 22:12 Dose: 0.25 mg Documented by: [id number] Admin: 04/01/19 20:38 Dose: 0.25 mg Documented by: [id number] Admin: 03/31/19 20:57 Dose: 0.25 mg Documented by: [id number] Admin: 03/30/19 21:48 Dose: 0.25 mg Documented by: [id number] Admin: 03/29/19 22:35 Dose: 0.25 mg Documented by: [id number] Admin: 03/28/19 20:09 Dose: 0.25 mg Documented by: [id number] Admin: 03/27/19 22:25 Dose: 0.25 mg Documented by: [id number] Admin: 03/26/19 21:46 Dose: 0.25 mg Documented by: [id number] Admin: 03/25/19 21:00 Dose: 0.25 mg Documented by: [id number] Admin: 03/24/19 22:28 Dose: 0.25 mg Documented by: [id number] Sertraline HCl (Zoloft) 37.5 mg PO HS [facility] Stop: 04/23/19 20:59 Last Admin: 04/04/19 21:53 Dose: 37.5 mg Documented by: [id number] Admin: 04/03/19 22:09 Dose: Not Given Documented by: [id number] Admin: 04/02/19 22:06 Dose: Not Given Documented by: [id number] Admin: 04/01/19 20:37 Dose: 37.5 mg Documented by: [id number] Admin: 03/31/19 20:58 Dose: 37.5 mg Documented by: [id number] Admin: 03/30/19 21:47 Dose: 37.5 mg Documented by: [id number] Admin: 03/29/19 21:45 Dose: 37.5 mg Documented by: [id number] Admin: 03/28/19 20:09 Dose: 37.5 mg Documented by: [id number] Admin: 03/27/19 22:26 Dose: 37.5 mg Documented by: [id number] Admin: 03/26/19 21:46 Dose: 37.5 mg Documented by: [id number] Admin: 03/25/19 21:00 Dose: 37.5 mg Documented by: [id number] Admin: 03/24/19 22:27 Dose: 37.5 mg Documented by: [id number] Sevelamer HCl (Renagel) 800 mg PO TIDM [facility] Stop: 04/24/19 07:59 Last Admin: 04/05/19 12:29 Dose: 800 mg Documented by: [id number] Admin: 04/05/19 08:29 Dose: 800 mg Documented by: [id number] Admin: 04/04/19 17:24 Dose: 800 mg Documented by: [id number] Admin: 04/04/19 12:07 Dose: 800 mg Documented by: [id number] Admin: 04/04/19 09:20 Dose: 800 mg Documented by: [id number] Admin: 04/03/19 22:02 Dose: Not Given Documented by: [id number] Admin: 04/03/19 12:40 Dose: 800 mg Documented by: [id number] Admin: 04/03/19 08:36 Dose: 800 mg Documented by: [id number] Admin: 04/02/19 18:18 Dose: 800 mg Documented by: [id number] Admin: 04/02/19 12:24 Dose: Not Given Documented by: [id number] Admin: 04/02/19 08:05 Dose: 800 mg Documented by: [id number] Admin: 04/01/19 18:35 Dose: 800 mg Documented by: [id number] Admin: 04/01/19 14:41 Dose: 800 mg Documented by: [id number] Admin: 04/01/19 08:31 Dose: 800 mg Documented by: [id number] Admin: 03/31/19 15:51 Dose: 800 mg Documented by: [id number] Admin: 03/31/19 11:12 Dose: Not Given Documented by: [id number] Admin: 03/31/19 09:01 Dose: Not Given Documented by: [id number] Admin: 03/30/19 18:41 Dose: 800 mg Documented by: [id number] Admin: 03/30/19 13:48 Dose: 800 mg Documented by: [id number] Admin: 03/30/19 08:38 Dose: 800 mg Documented by: [id number] Admin: 03/29/19 17:32 Dose: 800 mg Documented by: [id number] Admin: 03/29/19 12:45 Dose: 800 mg Documented by: [id number] Admin: 03/29/19 09:09 Dose: 800 mg Documented by: [id number] Admin: 03/28/19 17:01 Dose: 800 mg Documented by: [id number] Admin: 03/28/19 11:23 Dose: 800 mg Documented by: [id number] Admin: 03/28/19 10:26 Dose: Not Given Documented by: [id number] Admin: 03/27/19 16:38 Dose: Not Given Documented by: [id number] Admin: 03/27/19 11:14 Dose: 800 mg Documented by: [id number] Admin: 03/27/19 07:20 Dose: 800 mg Documented by: [id number] Admin: 03/26/19 19:44 Dose: Not Given Documented by: [id number] Admin: 03/26/19 13:27 Dose: 800 mg Documented by: [id number] Admin: 03/26/19 08:48 Dose: 800 mg Documented by: [id number] Admin: 03/25/19 17:05 Dose: 800 mg Documented by: [id number] Admin: 03/25/19 14:05 Dose: 800 mg Documented by: [id number] Admin: 03/25/19 07:57 Dose: 800 mg Documented by: [id number] Vitamin D (Vitamin D3) 2,000 units PO DAILY [facility] Stop: 04/24/19 08:59 Last Admin: 04/05/19 08:28 Dose: 2,000 units Documented by: [id number] Admin: 04/04/19 09:19 Dose: 2,000 units Documented by: [id number] Admin: 04/03/19 08:36 Dose: 2,000 units Documented by: [id number] Admin: 04/02/19 08:04 Dose: 2,000 units Documented by: [id number] Admin: 04/01/19 08:30 Dose: 2,000 units Documented by: [id number] Admin: 03/31/19 08:59 Dose: Not Given Documented by: [id number] Admin: 03/30/19 08:37 Dose: 2,000 units Documented by: [id number] Admin: 03/29/19 09:08 Dose: 2,000 units Documented by: [id number] Admin: 03/28/19 10:30 Dose: Not Given Documented by: [id number] Admin: 03/27/19 07:19 Dose: 2,000 units Documented by: [id number] Admin: 03/26/19 08:49 Dose: 2,000 units Documented by: [id number] Admin: 03/25/19 07:58 Dose: 2,000 units Documented by: [id number]
--- NOTE | 2019-04-05 14:25 | Hospitalist Progress Note ---
Date of Service April 05, 2019 Assessment & Plan (1) Osteomyelitis of hand, right, acute: Diabetic hand infection. CT hand on 03/25 showed osteomyelitis. - Seen by vascular, ortho, and ID - Appreciate recs - Had extensive washout and debridement on 03/[address] Izaguirre - multiple abscesses, partial amputations of the second metacarpal head and second proximal phalanx - Wound culture with actinomyces, corynebacterium and probable anaerobic gram negative bacilli - wound does not appear to be healing well, patient removing dressing and chewing on site. - Had surgery on 03/31 amputated right index finger. - Continue imipenem/cilastatin - surgery scheduled 04/[address] Colon (2) Ischemic finger: On 03/27, her right index finger became cool, mottled, and painful. Discussed this with Drs. Izaguirre, Derrick, and Isaiah, as well as a vascular surgeon from [place] in regards to any salvage therapy for the index finger. She was put on aspirin and Plavix. Heparin gtt was not done due to her INR being near therapeutic. - CTA right hand on 03/28 showed: 1) flow in the radial, ulnar, superficial palmar, and deep palmar arteries 2) no flow within the digital artery along the radial aspect of the second finger 3) thrombosis of the proximal digital artery along the ulnar aspect of the second finger 4) moderate stenosis with near complete to complete occlusion involving the digital artery along the ulnar aspect of the third finger - amputation as above (3) Cellulitis: Right hand and arm. - Plan as above (4) End-stage renal disease on hemodialysis: On admission - K+ up to 6.8. - S/p HD on 03/25 - Continue Bumex & sevelamer - On 03/27, K+ was back up to 6.3; possibly from tissue breakdown. - HD failed on 03/27 in the AM; U/s showed patent AV fistula. AVF infiltrated a second time in the evening. - On 03/27 at ~10pm, she had an urgent femoral HD line placed by pulm/cc - Underwent HD overnight of 03/27-03/28 - Appreciate nephrology recs -Potassium remains normal. (5) Anemia: Anemia of chronic disease and CKD. - Baseline hgb ~11; on 03/25 was 10.0. Hgb 8.8 on 03/28, but stable from 03/27. - Monitor hgb -Hemoglobin has been steady around 7.8 - 8 over the last few days. (6) Atrial fibrillation: History of atrial fibrillation and CVA. Chads-Vasc of 6, making her a high-risk candidate. - Rate-controlled with metoprolol 25mg PO BID - Anticoagulation with warfarin - On presentation, her INR was 8.3 for which she received vitamin K 5mg IV x 1. - returning to surgery tomorrow, warfarin held for tonight (7) Diabetes: A1c of 9.7% on 03/25. - Continue basal bolus insulin with sliding scale coverage - Glycemic pharmacist consult (8) Hypothyroidism: TSH was 0.2 on 03/26 with normal FT4. No signs/symptoms of hypo- /hyperthyroidism. - Continue home Synthroid 250 mcg - Will not change dose in setting of acute illness. (9) Restless leg syndrome: No current symptoms. - Continue ropinerole QHS (10) DVT prophylaxis: SCDs, resume warfarin when ok with surgery Subjective Notified by nursing this morning that patient had called 911 to report being held with restraints here in the hospital and also that she is removing her dressings and chewing on her wound site. When I saw her bedside she was calm. She did report felling very fatigued. Review of Systems Review of Systems: All systems reviewed & are unremarkable except as noted in HPI & below Physical Exam Physical Exam: General: no distress Eyes: normal inspection, PERLL Respiratory: chest non tender, clear to auscultation, normal breath sounds, no respiratory distress, no accessory muscle use Cardiac: regular rate and rhythm, no rub or gallop, no murmur, no edema, no jvd GI/: active bowel sounds, no abd pain or tenderness, soft, non distended Extremities: normal range of motion, normal strength, non tender Neuro/Psych: alert and oriented x 3, normal mood and affect Skin: normal color, dry, ecchymosis right upper arm, dressing intact (patient reports site is painful and did not want me to remove dressing) Results & Data Vital Signs (Past 12 Hours) Vital Signs Temp Pulse Resp BP Pulse Ox 04/05/19 08:46 36.5 C 89 16 126/74 98
[2019-04-05] MEDS ORDERED: WARFARIN SOD 3 MG TAB PO SCH (16:00)
[2019-04-05] MEDS: HYDROCODONE/ACETAMOPHEN 5/325MG TAB PO PRN (16:12)
--- NOTE | 2019-04-05 16:43 | Anesthesiology Consultation ---
Date of Service April 05, 2019 Assessment & Plan Chart Review Chart Review: Patient NOT seen in Pre Admission Testing and manager beverage initiated Consults Requested none Additional Notes Patient scheduled for repeat IandD of right hand. Pt underwent GA with 7.0 ETT and glidescope #3 on 03/26/19 and a GA with LMA #4 on 03/31/19, both without apparent complications. Patient is scheduled for dialysis tomorrow morning and will need a PRP lab check post dialysis, prior to going to the operating room. History Surgery Operation Date: 03/26/19 13:40 Proposed Procedures p Right Hand Incision and Drainage, - Henrik Izaguirre DO s with Possible 2nd Metatarsal Head Resection - Henrik Izaguirre DO Operation Date: 03/31/19 07:00 Proposed Procedures p Right Hand Incision and Drainage, - Juvencio Colon MD s Right Index Finger Amputation - Juvencio Colon MD Operation Date: 04/02/19 12:50 Proposed Procedures p Insertion of Perm Catheter - Dayton Meza MD Operation Date: 04/06/19 07:00 Proposed Procedures p Right Hand Incision and Drainage Repeat; - Juvencio Colon MD s Right 3rd Finger Amputation with Application of Wound Vac - Juvencio Colon MD Height/Weight Height: 5 ft 3 in Weight: 109.6 kg Allergies Allergy/AdvReac Type Severity Reaction Status Date / Time oxycodone Allergy Intermediate HIVES,RASH Verified 03/24/19 16:46 Sulfa (Sulfonamide Allergy Intermediate HIVES,RASH Verified 03/24/19 16:46 Antibiotics) cephalexin Allergy Mild HIVES Verified 03/24/19 16:46 Penicillins Allergy Mild RASH Verified 03/24/19 16:46 Dyazide Allergy Unknown UNKNOWN Verified 05/08/18 11:24 hydrochlorothiazide Allergy Unknown UNKNOWN Verified 03/24/19 16:46 Sulfonylureas Allergy Unknown UNKNOWN Verified 03/24/19 16:46 triamterene Allergy Unknown UNKNOWN Verified 03/24/19 16:46 CARBONIC Allergy Unknown UNKNOWN Uncoded 03/24/19 16:46 Medications Home Medications Medication Instructions Recorded Confirmed Last Taken acetaminophen 1,000 mg PO Q6H PRN MDD 3 GRAMS/24 11/26/18 03/24/19 Unknown HOURS acetaminophen 650 mg PO Q6 PRN MDD 3 GRAMS/24 11/26/18 03/24/19 Unknown HOURS atorvastatin 20 mg PO HS 11/26/18 03/24/19 Unknown bisacodyl 5 mg PO DAILY PRN 11/26/18 03/24/19 Unknown bisacodyl 10 mg MN DAILY PRN 11/26/18 03/24/19 Unknown bumetanide 2 mg PO DAILY 11/26/18 03/24/19 Unknown calcium carbonate [Tums] 400 mg PO AC 11/26/18 03/24/19 Unknown cholecalciferol (vitamin D3) 2,000 units PO DAILY 11/26/18 03/24/19 Unknown docusate sodium 100 mg PO BID PRN 11/26/18 03/24/19 Unknown hydrocodone-acetaminophen 1 tab PO Q6 PRN 11/26/18 03/24/19 Unknown insulin glargine [Lantus Solostar 20 units SUBCUT BID 11/26/18 03/24/19 Unknown U-100 Insulin] insulin lispro [Humalog U-100 7 units SUBCUT AMHS 11/26/18 03/24/19 Unknown Insulin] insulin lispro [Humalog U-100 9 units SUBCUT BID 11/26/18 03/24/19 Unknown Insulin] levothyroxine 50 mcg PO DAILY 11/26/18 03/24/19 Unknown levothyroxine 200 mcg PO DAILY 11/26/18 03/24/19 Unknown melatonin 3 mg PO HS PRN 11/26/18 03/24/19 Unknown metoprolol tartrate 25 mg PO BID 11/26/18 03/24/19 Unknown polyethylene glycol 3350 17 g PO DAILY 11/26/18 03/24/19 Unknown pramipexole 0.25 mg PO HS 11/26/18 03/24/19 Unknown sennosides [senna] 8.6 mg PO HS PRN 11/26/18 03/24/19 Unknown sertraline 37.5 mg PO HS 11/26/18 03/24/19 Unknown sevelamer carbonate 800 mg PO TIDM 11/26/18 03/24/19 Unknown sodium bicarbonate 650 mg PO 4XWK 11/26/18 03/24/19 Unknown warfarin 3 mg PO 4XWK 11/26/18 03/24/19 Unknown Selan Silver Protectant 1 applic TOPICAL BID 03/24/19 Unknown lidocaine-prilocaine 1 applic TOPICAL DIRECTED PRN 03/24/19 03/24/19 Unknown linezolid 600 mg PO Q12H 03/24/19 03/24/19 Unknown mupirocin 1 applic TOPICAL DAILY 03/24/19 03/24/19 Unknown tramadol 50 mg PO Q4 PRN 03/24/19 03/24/19 Unknown vancomycin 1 g IV DAILY 03/24/19 03/24/19 Unknown warfarin 2.5 mg PO 3XWK 03/24/19 04/05/19 Unknown Active Medications Generic Name Dose Route Start Last Admin Trade Name Freq PRN Reason Stop Dose Admin Acetaminophen 1,000 mg 03/26/19 18:53 04/04/19 00:15 Tylenol PO 04/25/19 18:52 1,000 mg Q6H PRN Administration Fever Hydrocodone Bitart/Acetaminophen 1 tab 03/26/19 18:53 04/05/19 16:12 [place] 5/325 PO 04/09/19 18:52 1 tab Q6 PRN Administration Pain Aspirin 81 mg 03/27/19 19:00 04/05/19 08:29 Ecotrin Ectab PO 04/26/19 18:59 81 mg DAILY [facility] Administration Atorvastatin Calcium 20 mg 03/24/19 21:00 04/04/19 21:52 Lipitor PO 04/23/19 20:59 20 mg HS DEL[facility]Y Administration Bumetanide 2 mg 03/25/19 09:00 04/05/19 08:29 Bumex PO 04/24/19 08:59 2 mg DAILY DEL[facility] Administration Calcium Carbonate 1,000 mg 03/25/19 07:30 04/05/19 16:14 Tums PO 04/24/19 07:29 1,000 mg AC DELANEY Administration Clopidogrel Bisulfate 75 mg 03/27/19 19:00 04/05/19 08:28 Plavix PO 04/26/19 18:59 75 mg QAM [facility] Administration Diphenhydramine HCl 25 mg 04/05/19 14:51 04/05/19 16:12 Benadryl Capsule PO 05/05/19 14:50 25 mg TID PRN Administration pruritis Hydromorphone HCl 1 mg 03/29/19 10:16 04/05/19 16:22 Dilaudid IV 04/11/19 14:10 1 mg Q2H PRN Administration Moderate Pain Imipenem/Cilastatin Sodium 200 108 mls @ 100 mls/hr 03/24/19 22:00 04/05/19 16:15 mg/ Dextrose IV 05/05/19 21:59 Infused Q6H [facility] Infusion Protocol Insulin Aspart 0 units 04/02/19 16:30 04/05/19 12:57 Novolog Flexpen SC 05/02/19 16:29 8 units ACHS DEL[facility]Y Administration Protocol Insulin Glargine 0 units 03/29/19 21:00 04/04/19 21:16 Lantus Solostar Pen SQ 04/28/19 20:59 12 units HS DEL[facility]Y Administration Protocol Iodixanol 15 ml 04/02/19 12:35 04/02/19 12:36 Visipaque IV 04/06/19 12:34 15 ml UD PRN Administration Interaction Checking Levothyroxine Sodium 50 mcg 03/25/19 06:30 04/05/19 05:38 Synthroid PO 04/24/19 06:29 50 mcg DAILYBB [facility] Administration Levothyroxine Sodium 200 mcg 03/25/19 06:30 04/05/19 05:38 Synthroid PO 04/24/19 06:29 200 mcg DAILYBB [facility] Administration Metoprolol Tartrate 25 mg 03/24/19 21:00 04/05/19 08:47 Lopressor PO 04/23/19 20:59 25 mg BID DEL[facility]Y Administration Ondansetron HCl 4 mg 03/24/19 20:57 04/04/19 04:32 Zofran IV 04/23/19 20:56 4 mg Q6H PRN Administration Nausea Polyethylene Glycol 17 gm 03/25/19 09:00 04/05/19 08:29 Miralax Powder Packet PO 04/24/19 08:59 17 gm DAILY [facility] Administration Pramipexole Dihydrochloride 0.25 mg 03/24/19 21:00 04/04/19 21:53 Mirapex PO 04/23/19 20:59 0.25 mg HS [facility] Administration Sertraline HCl 37.5 mg 03/24/19 21:00 04/04/19 21:53 Zoloft PO 04/23/19 20:59 37.5 mg HS [facility] Administration Sevelamer HCl 800 mg 03/25/19 08:00 04/05/19 16:13 Renagel PO 04/24/19 07:59 800 mg TIDM DEL[facility]Y Administration Vitamin D 2,000 units 03/25/19 09:00 04/05/19 08:28 Vitamin D3 PO 04/24/19 08:59 2,000 units DAILY [facility] Administration Past Medical History Medical History Azotemia End-stage renal disease on hemodialysis Dialysis AV fistula malfunction Anemia Hyponatremia Secondary hyperparathyroidism of renal origin AV fistula infection AV fistula Diabetes mellitus, type 2 Hemodialysis patient Hyperlipidemia Hypertension Hypothyroidism MRSA (methicillin resistant Staphylococcus aureus) Shingles Stroke Exercise / Class Metabolic Activity III < 4 Walking/Shop/Light housework Past Family History Family History Unknown Diabetes Past Surgical History Surgical History H/O section History of cholecystectomy History of hand surgery Past Anesthesia History No Hx of Anesthesia Complications and No Family Hx of Anesthesia Complications History of PONV No Hx of PONV and No Hx of Motion Sickness Social History Smoking Status: Former smoker Smoking End Date: 2017 Hx Alcohol Use: Yes alcohol intake frequency: holidays/special occasions only Hx Substance Use: No substance use type: does not use Physical Exam Vital Signs Last Vital Signs Temp 36.6 C 04/05/19 16:07 Pulse 83 04/05/19 16:07 Resp 17 04/05/19 16:07 BP 93/56 L 04/05/19 16:07 Pulse Ox 99 04/05/19 16:07 Testing Electrocardiogram Date: 03/27/19 Findings: + NSR @ (93) When compared with ECG of 24-MAR-2019 15:58, Criteria for Septal infarct are no longer Present Chest X-Ray Date: 03/27/19 Findings: + cardiomegaly and + pulmonary vascular congestion Laboratory Results 04/05/19 09:10 04/05/19 09:10 PT 18.5 Seconds (9.0-12.0) H 04/05/19 09:10 INR 1.9 (0.9-1.1) H 04/05/19 09:10 Hemoglobin A1c 9.7 % (4.5-5.6) H 03/25/19 07:33 03/31/19 11:05 Blood Culture - Preliminary Blood No growth to date. 03/31/19 11:03 Blood Culture - Preliminary Blood No growth to date. 03/26/19 17:44 Gram Stain - Final Hand,Right Aerobic and Anaerobic Culture - Final Corynebacterium species Actinomyces turicensis Probable juli gram neg bacilli 03/26/19 17:44 Gram Stain - Final Hand,Right Aerobic and Anaerobic Culture - Final No growth 03/24/19 23:36 Blood Culture - Final Blood No growth 03/24/19 21:42 Blood Culture - Final Blood No growth 04/05/19 04/05/19 12:25 08:27 POC Glucose 99 141 H
[2019-04-05] MEDS: INSULIN GLARGINE SOLOSTAR 100 UNITS/ML 3 ML PEN SQ SCH (21:08)
[2019-04-05] MEDS: ATORVASTATIN 20 MG TAB PO SCH (21:15)
[2019-04-05] MEDS: PRAMIPEXOLE DIHYDROCHLO 0.25 MG TAB PO SCH (21:15)
[2019-04-05] MEDS: SERTRALINE HCL 50 MG TABLET PO SCH (21:16)
--- NOTE | 2019-04-05 21:27 | Infectious Disease Progress Nt ---
Date of Service April 05, 2019 Assessment & Plan (1) Cellulitis of right hand: 58-year-old female with end-stage renal disease on dialysis deep right hand infection status post debridement, with persistent pain persistent pain and distal small artery obstruction. Cultures have grown corynebacterium, actinomyces, and anaerobes. Should be well covered with imipenem. Will follow. Subjective Patient seen in follow-up for right hand infection. Apparently had been chewing on her dressing. Appears calm at present. No fever. Pain still severe. Review of Systems Review of Systems: All systems reviewed & are unremarkable except as noted in HPI & below Physical Exam Constitutional: WD/WN, vitals as above + acute distress and + ill appearing Eyes: PERRL, conjunctivae normal, anicteric sclerae ENMT: external ear and nose normal, oropharynx normal Neck: trachea midline, no thyromegaly neck nontender Respiratory: normal respiratory effort, lungs clear to auscultation normal percussion; no respiratory distress and does not use accessory muscles Cardiovascular: Rate/Rhythm: regular rate and regular rhythm Heart Sounds: normal S1 and normal S2; no gallop, no murmur and no cardiac rub Vessels: normal peripheral pulses; no JVD Gastrointestinal (Abdomen): normal bowel sounds, soft, nontender, no hepatosplenomegaly Musculoskeletal: no cyanosis or clubbing, extremities motor strength 5/5 Spine: thoracic spine normal to inspection and lumbar spine normal to inspection; no cervical spinal tenderness Skin: no rashes Right hand unchanged Neurologic: patellar DTR's 2+ bilat, sensation intact moves all extremities and awake; no focal motor deficits Motor/Sensory: no sensory deficit Psychiatric: A+Ox3, euthymic affect Orientation: cooperative Lymphatic: no cervical or axillary lymphadenopathy no inguinal lymphadenopathy Results & Data Vital Signs (Past 12 Hours) Vital Signs Temp Pulse Resp BP BP Pulse Ox 04/05/19 21:12 36.9 C 84 16 91/59 L 97 04/05/19 16:07 36.6 C 83 17 93/56 L 99 Laboratory Results Short CBC 04/05/19 Range/Units 09:10 WBC 10.58 (4.8-10.8) K/uL Hgb 7.9 L (12.0-16.0) g/dL Hct 25.0 L (37-47) % Plt Count 327 (130-400) K/uL BMP 04/05/19 09:10 Sodium 131 L Potassium 4.6 Chloride 99 Carbon Dioxide 21 BUN 33 H Creatinine 6.27 H* D Glucose 151 H Calcium 8.9 Diagnostic Findings Microbiology 03/31/19 11:05 Blood Blood Culture - Preliminary No growth to date. 03/31/19 11:03 Blood Blood Culture - Preliminary No growth to date. 03/26/19 17:44 Hand,Right Gram Stain - Final 03/26/19 17:44 Hand,Right Aerobic and Anaerobic Culture - Final Corynebacterium species Actinomyces turicensis Probable juli gram neg bacilli 03/26/19 17:44 Hand,Right Gram Stain - Final 03/26/19 17:44 Hand,Right Aerobic and Anaerobic Culture - Final No growth 03/24/19 23:36 Blood Blood Culture - Final No growth 03/24/19 21:42 Blood Blood Culture - Final No growth
[2019-04-06] MEDS: IMIPENEM/CILASTATIN SODIUM 200 MG in DEXTROSE 5% 100 ML IV SCH ×4 (03:44→21:46)
[2019-04-06] MEDS ORDERED: Nursing to Pharmacy Communication ONE ×2 (04:02→20:47)
[2019-04-06] MEDS: HYDROCODONE/ACETAMOPHEN 5/325MG TAB PO PRN ×3 (04:47→22:15)
[2019-04-06] MEDS: INSULIN ASPART 100 UNITS/ML 3 ML PEN SC SCH ×3 (06:20→22:23)
[2019-04-06] MEDS: LEVOTHYROXINE SODIUM 200 MCG TABLET PO SCH (06:21)
[2019-04-06] MEDS: LEVOTHYROXINE SODIUM 50 MCG TABLET PO SCH (06:21)
[2019-04-06 06:34] LABS: Hematocrit (blood only) 23.7 % (37-47); Hemoglobin 7.6 g/dL (12.0-16.0); Mean Corpuscular Hgb Conc 32.1 g/dL (32-36); Mean Corpuscular Volume 97.5 fL (80-100); Mean Platelet Volume 10.1 fL (7.4-10.4); Platelet Count 327 K/uL (130-400); RDW Coefficient of Variation 14.6 % (11.5-14.5); RDW Standard Deviation 51.9 fL (36.4-46.3); Red Blood Count 2.43 M/uL (4.2-5.4); White Blood Count 11.03 K/uL (4.8-10.8)
[2019-04-06] MEDS ORDERED: SODIUM CHLORIDE 0.9% 1000ML 1,000 ML IV PRN (07:00)
[2019-04-06] MEDS ORDERED: HEPARIN SOD (PORCINE) 1000 UNIT/ML 10 ML VIAL IV SCH ×2 (07:00)
[2019-04-06 07:19] LABS: BUN Creatinine Ratio 5.6 (10-20); Calcium 8.4 mg/dl (8.5-10.1); Creatinine Clr Calc Pharmacy 9.8 ml/min; Est GFR (African American) 6.3; Est GFR (Non-African American) 5.4; Potassium 4.5 mmol/L (3.5-5.1)
[2019-04-06] MEDS: ACETAMINOPHEN 500 MG TAB PO PRN (07:50)
[2019-04-06] MEDS: SEVELAMER HCL 800 MG TABLET PO SCH ×3 (07:51→17:30)
[2019-04-06] MEDS: CHOLECALCIFEROL 1,000 UNITS TAB PO SCH (07:51)
[2019-04-06] MEDS: METOPROLOL TARTRATE 25 MG TAB PO SCH ×2 (07:51→22:06)
[2019-04-06] MEDS: POLYETHYLENE (MIRALAX) 17 GM PACK PO SCH (07:52)
[2019-04-06] MEDS: CALCIUM CARBONATE 500 MG CHEWABLE TAB PO SCH ×3 (07:52→17:30)
[2019-04-06] MEDS: BUMETANIDE 1 MG TAB PO SCH (07:52)
[2019-04-06] MEDS: EPOETIN ALFA 10,000 UNITS/ML VIAL IV ONE ×2 (08:06→12:07)
[2019-04-06] MEDS ORDERED: INSULIN GLARGINE SOLOSTAR 100 UNITS/ML 3 ML PEN SQ ONE (09:15)
--- NOTE | 2019-04-06 09:48 | Pharmacy Report ---
Pharmacy Glycemic Short Note 2 - Date of Service April 06, 2019 - Glycemic Short BSG Results (Last 24 hours): 04/05/19 04/05/19 04/05/19 09:10 12:25 17:35 Glucose 151 H POC Glucose 99 94 04/05/19 04/06/19 04/06/19 20:57 05:38 06:17 Glucose 129 H POC Glucose 107 H 147 H OUTPATIENT REGIMEN: * Lantus 20 units SQ BID * Humalog SC ACHS, units ASSESSMENT: * 58 yo F with osteomyelitis. POD 6 s/p amputation of R index finger and now NPO as of 0000 for planned I&D with amputation of R 3rd finger later today. Patient also scheduled for HD today * Basal insulin * Due to changes in stressors above (NPO status and furthermore, HD increasing insulin sensitivity) will significantly decrease Lantus, especially as hypoglycemia during surgery should be avoided * During the day yesterday, patient had a total of Lantus 20 units on board (from 12 units 5/12 PM and 8 units 5/13 AM). Lantus was held last night per parameters and fasting BSG today was 147 mg/dL. PLAN FOR INPATIENT GLYCEMIC CONTROL: * Basal insulin: * Lantus 5 units SC BID (hold for BSG < 140 mg/d) * Bolus insulin - no changes * NovoLog per scale ACHS or Q6hrs while NPO * Goal Range: Low 110 mg/dL - High 140 mg/dL * Correction Factor: 20 mg/dL/unit * Nutritional / Prandial insulin per carb ratio of 1 unit per 6 grams CHO consumed
--- NOTE | 2019-04-06 10:18 | Nephrology Progress Note ---
Date of Service April 06, 2019 Assessment & Plan (1) End-stage renal disease on hemodialysis: -- Volume status and electrolyte balance are acceptable. HD ordered for today. HD RN notified. Will coordinate w/ surgery -- AVF with very weak thrill and poor bruit, remains significantly ecchymotic and tender, this is being rested for now -- RIJ permcath placed 04/02/19 -- Renal diet (2) Cellulitis of right hand: -- Culture + corynebacterium, actinomyces and anaerobes -- Patient remains on imipenem -- ID following -- POD#6 s/p I&D and index finger amputation (3) Anemia: -- Tsat 65% and ferritin >1000 -- Hgb remains stable at 7.6. Patient is asymptomatic -- Will provide SHANI w/ HD today (4) Secondary hyperparathyroidism of renal origin: Subjective Ms. Ardon was seen & examined in her hospital room this morning. She was resting comfortably in bed. She notes that she is scheduled for further debridement of her R hand today. Review of Systems Respiratory: no dyspnea Cardiovascular: no chest pain Gastrointestinal: no abdominal pain, no vomiting and no diarrhea/loose stools Physical Exam Neck: trachea midline, no thyromegaly Respiratory: normal respiratory effort, lungs clear to auscultation Cardiovascular: RRR, no murmur, no edema Extremities: + AV fistula (palpable thrill. Soft bruit. Large area of surrounding ecchymosis) Gastrointestinal (Abdomen): normal bowel sounds, soft, nontender, no hepatosplenomegaly Results & Data Vital Signs (Past 12 Hours) Vital Signs Temp Pulse Resp BP BP Pulse Ox 04/06/19 07:08 36.8 C 89 20 93/54 L 99 04/06/19 00:30 36.9 C 93 H 16 93/61 L 96
[2019-04-06] MEDS: HYDROmorphone INJ 1 MG/ML SYRINGE IV PRN (15:27)
--- NOTE | 2019-04-06 15:35 | Infectious Disease Progress Nt ---
Date of Service April 06, 2019 Assessment & Plan (1) Cellulitis of right hand: 58-year-old female with end-stage renal disease on dialysis deep right hand infection status post febrile debridements, with persistent pain persistent pain and distal small artery obstruction. Cultures have grown corynebacterium, actinomyces, and anaerobes. Should be well covered with imipenem. Await results of today's surgery along with repeat cultures. Will follow Subjective Patient seen in follow-up for right hand infection. Pain about the same. No fever. For further debridement in the OR later today. Review of Systems Review of Systems: All systems reviewed & are unremarkable except as noted in HPI & below Physical Exam Constitutional: WD/WN, vitals as above + acute distress and + ill appearing Eyes: PERRL, conjunctivae normal, anicteric sclerae ENMT: external ear and nose normal, oropharynx normal Neck: trachea midline, no thyromegaly neck nontender Respiratory: normal respiratory effort, lungs clear to auscultation normal percussion; no respiratory distress and does not use accessory muscles Cardiovascular: Rate/Rhythm: regular rate and regular rhythm Heart Sounds: normal S1 and normal S2; no gallop, no murmur and no cardiac rub Vessels: normal peripheral pulses; no JVD Gastrointestinal (Abdomen): normal bowel sounds, soft, nontender, no hepatosplenomegaly Musculoskeletal: no cyanosis or clubbing, extremities motor strength 5/5 Spine: thoracic spine normal to inspection and lumbar spine normal to inspect ion; no cervical spinal tenderness Skin: no rashes Neurologic: patellar DTR's 2+ bilat, sensation intact moves all extremities and awake; no focal motor deficits Motor/Sensory: no sensory deficit Psychiatric: A+Ox3, euthymic affect Orientation: cooperative Lymphatic: no cervical or axillary lymphadenopathy no inguinal lymphadenopathy Results & Data Vital Signs (Past 12 Hours) Vital Signs Temp Pulse Pulse Pulse Resp BP BP 04/06/19 13:42 36.9 C 92 H 96/51 L 04/06/19 13:20 88 74/32 L 04/06/19 13:00 87 85/43 L 04/06/19 12:40 79 100/46 L 04/06/19 12:20 83 102/42 L 04/06/19 12:00 73 85/35 L 04/06/19 11:40 73 81/42 L 04/06/19 11:20 57 L 73/51 L 04/06/19 11:00 86 102/43 L 04/06/19 10:40 83 120/48 L 04/06/19 10:20 83 117/48 L 04/06/19 10:00 84 97/28 L 04/06/19 09:32 36.9 C 84 04/06/19 07:08 36.8 C 89 20 BP Pulse Ox 04/06/19 13:42 04/06/19 13:20 04/06/19 13:00 04/06/19 12:40 04/06/19 12:20 04/06/19 12:00 04/06/19 11:40 04/06/19 11:20 04/06/19 11:00 04/06/19 10:40 04/06/19 10:20 04/06/19 10:00 04/06/19 09:32 04/06/19 07:08 93/54 L 99 Laboratory Results Short CBC 04/06/19 Range/Units 05:38 WBC 11.03 H (4.8-10.8) K/uL Hgb 7.6 L (12.0-16.0) g/dL Hct 23.7 L (37-47) % Plt Count 327 (130-400) K/uL BMP 04/06/19 05:38 Sodium 130 L Potassium 4.5 Chloride 99 Carbon Dioxide 21 BUN 41 H Creatinine 7.43 H* D Glucose 129 H Calcium 8.4 L Diagnostic Findings Microbiology 03/31/19 11:05 Blood Blood Culture - Final No growth 03/31/19 11:03 Blood Blood Culture - Final No growth 03/26/19 17:44 Hand,Right Gram Stain - Final 03/26/19 17:44 Hand,Right Aerobic and Anaerobic Culture - Final Corynebacterium species Actinomyces turicensis Probable juli gram neg bacilli 03/26/19 17:44 Hand,Right Gram Stain - Final 03/26/19 17:44 Hand,Right Aerobic and Anaerobic Culture - Final No growth 03/24/19 23:36 Blood Blood Culture - Final No growth 03/24/19 21:42 Blood Blood Culture - Final No growth
[2019-04-06] MEDS ORDERED: BUPIVACAINE/EPINEPHRINE 0.5% MPF 1:200,000 30 ML VIAL ONE (15:36)
[2019-04-06] MEDS ORDERED: BUPIVACAINE 0.5 % 5 MG/1 ML MPF 30ML VIAL ONE (15:36)
[2019-04-06] MEDS ORDERED: BACITRACIN INJ 50,000 UNIT VIAL ONE (15:36)
[2019-04-06] MEDS ORDERED: fentaNYL citrate 100 MCG/2 ML VIAL ONE ×3 (16:57→18:08)
--- NOTE | 2019-04-06 17:18 | Anesthesiology Consultation ---
Date of Service April 06, 2019 Assessment & Plan Chart Review Chart Review: Acceptable Risk for Surgery and Patient NOT seen in Pre Admission Testing Consults Requested none History Surgery Operation Date: 03/26/19 13:40 Proposed Procedures p Right Hand Incision and Drainage, - Henrik Izaguirre DO s with Possible 2nd Metatarsal Head Resection - Henrik Izaguirre DO Operation Date: 03/31/19 07:00 Proposed Procedures p Right Hand Incision and Drainage, - Juvencio Colon MD s Right Index Finger Amputation - Juvencio Colon MD Operation Date: 04/02/19 12:50 Proposed Procedures p Insertion of Perm Catheter - Dayton Meza MD Operation Date: 04/06/19 07:00 Proposed Procedures p Right Hand Incision and Drainage Repeat; - Juvencio Colon MD s Right 3rd Finger Amputation with Application of Wound Vac - Juvencio Colon MD Height/Weight Height: 5 ft 3 in Weight: 110.3 kg Allergies Allergy/AdvReac Type Severity Reaction Status Date / Time oxycodone Allergy Intermediate HIVES,RASH Verified 03/24/19 16:46 Sulfa (Sulfonamide Allergy Intermediate HIVES,RASH Verified 03/24/19 16:46 Antibiotics) cephalexin Allergy Mild HIVES Verified 03/24/19 16:46 Penicillins Allergy Mild RASH Verified 03/24/19 16:46 Dyazide Allergy Unknown UNKNOWN Verified 05/08/18 11:24 hydrochlorothiazide Allergy Unknown UNKNOWN Verified 03/24/19 16:46 Sulfonylureas Allergy Unknown UNKNOWN Verified 03/24/19 16:46 triamterene Allergy Unknown UNKNOWN Verified 03/24/19 16:46 CARBONIC Allergy Unknown UNKNOWN Uncoded 03/24/19 16:46 Medications Home Medications Medication Instructions Recorded Confirmed Last Taken acetaminophen 1,000 mg PO Q6H PRN MDD 3 GRAMS/24 11/26/18 03/24/19 Unknown HOURS acetaminophen 650 mg PO Q6 PRN MDD 3 GRAMS/24 11/26/18 03/24/19 Unknown HOURS atorvastatin 20 mg PO HS 11/26/18 03/24/19 Unknown bisacodyl 5 mg PO DAILY PRN 11/26/18 03/24/19 Unknown bisacodyl 10 mg AK DAILY PRN 11/26/18 03/24/19 Unknown bumetanide 2 mg PO DAILY 11/26/18 03/24/19 Unknown calcium carbonate [Tums] 400 mg PO AC 11/26/18 03/24/19 Unknown cholecalciferol (vitamin D3) 2,000 units PO DAILY 11/26/18 03/24/19 Unknown docusate sodium 100 mg PO BID PRN 11/26/18 03/24/19 Unknown hydrocodone-acetaminophen 1 tab PO Q6 PRN 11/26/18 03/24/19 Unknown insulin glargine [Lantus Solostar 20 units SUBCUT BID 11/26/18 03/24/19 Unknown U-100 Insulin] insulin lispro [Humalog U-100 7 units SUBCUT AMHS 11/26/18 03/24/19 Unknown Insulin] insulin lispro [Humalog U-100 9 units SUBCUT BID 11/26/18 03/24/19 Unknown Insulin] levothyroxine 50 mcg PO DAILY 11/26/18 03/24/19 Unknown levothyroxine 200 mcg PO DAILY 11/26/18 03/24/19 Unknown melatonin 3 mg PO HS PRN 11/26/18 03/24/19 Unknown metoprolol tartrate 25 mg PO BID 11/26/18 03/24/19 Unknown polyethylene glycol 3350 17 g PO DAILY 11/26/18 03/24/19 Unknown pramipexole 0.25 mg PO HS 11/26/18 03/24/19 Unknown sennosides [senna] 8.6 mg PO HS PRN 11/26/18 03/24/19 Unknown sertraline 37.5 mg PO HS 11/26/18 03/24/19 Unknown sevelamer carbonate 800 mg PO TIDM 11/26/18 03/24/19 Unknown sodium bicarbonate 650 mg PO 4XWK 11/26/18 03/24/19 Unknown warfarin 3 mg PO 4XWK 11/26/18 03/24/19 Unknown Selan Silver Protectant 1 applic TOPICAL BID 03/24/19 Unknown lidocaine-prilocaine 1 applic TOPICAL DIRECTED PRN 03/24/19 03/24/19 Unknown linezolid 600 mg PO Q12H 03/24/19 03/24/19 Unknown mupirocin 1 applic TOPICAL DAILY 03/24/19 03/24/19 Unknown tramadol 50 mg PO Q4 PRN 03/24/19 03/24/19 Unknown vancomycin 1 g IV DAILY 03/24/19 03/24/19 Unknown warfarin 2.5 mg PO 3XWK 03/24/19 04/05/19 Unknown Active Medications Generic Name Dose Route Start Last Admin Trade Name Freq PRN Reason Stop Dose Admin Acetaminophen 1,000 mg 03/26/19 18:53 04/06/19 07:50 Tylenol PO 04/25/19 18:52 1,000 mg Q6H PRN Administration Fever Hydrocodone Bitart/Acetaminophen 1 tab 03/26/19 18:53 04/06/19 14:13 [place] 5/325 PO 04/09/19 18:52 1 tab Q6 PRN Administration Pain Aspirin 81 mg 03/27/19 19:00 04/05/19 08:29 Ecotrin Ectab PO 04/26/19 18:59 81 mg DAILY DELANEY Administration Atorvastatin Calcium 20 mg 03/24/19 21:00 04/05/19 21:15 Lipitor PO 04/23/19 20:59 20 mg HS DELANEY Administration Bisacodyl 5 mg 03/26/19 18:53 04/06/19 15:27 Dulcolax PO 04/25/19 18:52 5 mg DAILY PRN Administration Constipation Bumetanide 2 mg 03/25/19 09:00 04/06/19 07:52 Bumex PO 04/24/19 08:59 2 mg DAILY DELANEY Administration Calcium Carbonate 1,000 mg 03/25/19 07:30 04/06/19 11:36 Tums PO 04/24/19 07:29 Not Given AC DELANEY Clopidogrel Bisulfate 75 mg 03/27/19 19:00 04/05/19 08:28 Plavix PO 04/26/19 18:59 75 mg QAM DELANEY Administration Docusate Sodium 100 mg 03/26/19 18:53 04/05/19 22:29 Colace PO 04/25/19 18:52 100 mg BID PRN Administration Constipation Hydromorphone HCl 1 mg 04/05/19 16:49 04/06/19 15:27 Dilaudid IV 04/12/19 10:15 1 mg Q4H PRN Administration Moderate Pain Imipenem/Cilastatin Sodium 200 108 mls @ 100 mls/hr 03/24/19 22:00 04/06/19 15:19 mg/ Dextrose IV 05/05/19 21:59 Infused Q6H DELANEY Infusion Protocol Insulin Aspart 0 units 04/06/19 06:00 04/06/19 14:11 Novolog Flexpen SC 05/06/19 05:59 Not Given Q6 DELANEY Protocol Levothyroxine Sodium 50 mcg 03/25/19 06:30 04/06/19 06:21 Synthroid PO 04/24/19 06:29 50 mcg DAILYBB DELANEY Administration Levothyroxine Sodium 200 mcg 03/25/19 06:30 04/06/19 06:21 Synthroid PO 04/24/19 06:29 200 mcg DAILYBB DELANEY Administration Metoprolol Tartrate 25 mg 03/24/19 21:00 04/06/19 07:51 Lopressor PO 04/23/19 20:59 Not Given BID DELANEY Ondansetron HCl 4 mg 03/24/19 20:57 04/04/19 04:32 Zofran IV 04/23/19 20:56 4 mg Q6H PRN Administration Nausea Polyethylene Glycol 17 gm 03/25/19 09:00 04/06/19 07:52 Miralax Powder Packet PO 04/24/19 08:59 17 gm DAILY DELANEY Administration Pramipexole Dihydrochloride 0.25 mg 03/24/19 21:00 04/05/19 21:15 Mirapex PO 04/23/19 20:59 0.25 mg HS DELANEY Administration Sertraline HCl 37.5 mg 03/24/19 21:00 04/05/19 21:16 Zoloft PO 04/23/19 20:59 37.5 mg HS DELANEY Administration Sevelamer HCl 800 mg 03/25/19 08:00 04/06/19 14:10 Renagel PO 04/24/19 07:59 Not Given TIDM DELANEY Vitamin D 2,000 units 03/25/19 09:00 04/06/19 07:51 Vitamin D3 PO 04/24/19 08:59 2,000 units DAILY DELANEY Administration NPO Date Last Intake of Fluids: 04/05/19 Time Last Intake of Fluids: 23:59 Date Last Intake of Solids: 04/05/19 Time Last Intake of Solids: 23:59 Past Medical History Medical History Azotemia End-stage renal disease on hemodialysis Dialysis AV fistula malfunction Anemia Hyponatremia Secondary hyperparathyroidism of renal origin AV fistula infection AV fistula Diabetes mellitus, type 2 Hemodialysis patient Hyperlipidemia Hypertension Hypothyroidism MRSA (methicillin resistant Staphylococcus aureus) Shingles Stroke Past Family History Family History Unknown Diabetes Past Surgical History Surgical History H/O section History of cholecystectomy History of hand surgery Social History Smoking Status: Former smoker Smoking End Date: 2017 Hx Alcohol Use: Yes alcohol intake frequency: holidays/special occasions only Hx Substance Use: No substance use type: does not use Physical Exam Vital Signs Last Vital Signs Temp 37.0 C 04/06/19 15:32 Pulse 92 H 04/06/19 15:32 Resp 18 04/06/19 15:32 BP 110/64 04/06/19 15:32 Pulse Ox 99 04/06/19 15:32 Testing Electrocardiogram Date: 03/27/19 Findings: + NSR @ (93) When compared with ECG of 24-MAR-2019 15:58, Criteria for Septal infarct are no longer Present Chest X-Ray Date: 03/27/19 Findings: + cardiomegaly and + pulmonary vascular congestion Laboratory Results 04/06/19 05:38 04/06/19 05:38 PT 18.5 Seconds (9.0-12.0) H 04/05/19 09:10 INR 1.9 (0.9-1.1) H 04/05/19 09:10 Hemoglobin A1c 9.7 % (4.5-5.6) H 03/25/19 07:33 03/31/19 11:05 Blood Culture - Final Blood No growth 03/31/19 11:03 Blood Culture - Final Blood No growth 03/26/19 17:44 Gram Stain - Final Hand,Right Aerobic and Anaerobic Culture - Final Corynebacterium species Actinomyces turicensis Probable juli gram neg bacilli 03/26/19 17:44 Gram Stain - Final Hand,Right Aerobic and Anaerobic Culture - Final No growth 03/24/19 23:36 Blood Culture - Final Blood No growth 03/24/19 21:42 Blood Culture - Final Blood No growth 04/06/19 04/06/19 14:03 06:17 POC Glucose 120 H 147 H
[2019-04-06] MEDS ORDERED: ATROPINE SULFATE 0.1 MG/ML 10ML SYR IV PRN (17:25)
[2019-04-06] MEDS ORDERED: ePHEDrine sulfate 50 MG/ML AMP IV PRN (17:25)
--- NOTE | 2019-04-06 17:25 | History & Physical Bridge Note ---
Date of Service April 06, 2019 History & Physical Bridge Note I have examined the patient, reviewed the History & Physical and in the interval since the performance of the History & Physical I have noted the following changes of clinical significance: no changes noted i WXAMINED HER IN THE PRE-OP HOLDING AREA . exam shows continued gangrene and necrosis. will plan for right middle finger ray ampuation, application of Vac.
[2019-04-06] MEDS ORDERED: PROPOFOL IV EMULSION 10 MG/ML 20 ML VIAL IV ONE (18:25)
[2019-04-06] MEDS ORDERED: LIDOCAINE HCL 2% 2 ML VIAL/AMP(20MG/ML) INFIL ONE (18:25)
[2019-04-06] MEDS ORDERED: ONDANSETRON INJ 2 MG/ML 2 ML VIAL ONE (18:25)
--- NOTE | 2019-04-06 18:54 | Post Operative Brief Note ---
Immediate Post Op Note v1 Date of Surgery April 06, 2019 Pre & Post Diagnosis Operation Date: 03/26/19 13:40 Pre-Op Diagnosis: Abscess dorsal hand, osteomyelits of second metacarpal hand Post-Op Diagnosis: Osteomyelitis second metacarpal, second proximal phalanx, dorsal abscess right dorsal abscess x 2 separate sites. fasciitis dorsal hand, infectious tenosynovitis second and third extensor, rupture second extensor tendon with necrosis Operation Date: 03/31/19 07:00 Pre-Op Diagnosis: Gangrene of right index finger Post-Op Diagnosis: Gangrene of right index finger Operation Date: 04/02/19 12:50 Pre-Op Diagnosis: Right Arm Hematoma Post-Op Diagnosis: Right Arm Hematoma Operation Date: 04/06/19 07:00 Pre-Op Diagnosis: Hand Cellulitis Failing Outpatient Treatment Post-Op Diagnosis: Hand Cellulitis Failing Outpatient Treatment Procedure Operation Date: 03/26/19 13:40 Actual Procedures p Incision and Drainage abscess dorsal right hand x2 separate locations; Debridement 2nd extensor; tenonectomy of 2nd and 3rd extensor; partial fasciectomy dorsal hand(Right) - Henrik Izaguirre DO s Amputation 2nd metacarpal head and 2nd proximal phalanx; (Right) - Henrik Izaguirre DO Operation Date: 03/31/19 07:00 Actual Procedures p Right Index finger amputation, application of VAC sponge(Right) - Juvencio Colon MD Operation Date: 04/02/19 12:50 Actual Procedures p Insertion of Perm Catheter Right Jugular Approach, Ultrasound Localization of Right Jugular Vein, Superior Vena Cavagram, Fluoroscopy for Positioning, Moderate Sedation [id number](Right) - Dayton Meza MD Operation Date: 04/06/19 07:00 Actual Procedures p Right Hand Incision and Drainage Repeat;(Right) - Juvencio Colon MD s Right 3rd Finger Amputation with Application of Wound Vac - Juvencio Colon MD Surgeon Juvencio Colon MD Editor Producer None Estimated Blood Loss 10 Findings Consistent with Post-Op Diagnosis Specimens Aerobic anaerobic Gram stain right dorsal hand 2 separate sites second extensor compartment and third extensor compartment. Second metacarpal head and proximal aspect second proximal phalanx. Necrotic second extensor tendon Drains Other (Wound Vac) Anesthesia Type RN Sedation
[2019-04-06] MEDS: fentaNYL citrate 100 MCG/2 ML VIAL IV PRN ×3 (19:10→19:20)
[2019-04-06] MEDS ORDERED: HYDROmorphone INJ 0.5 MG/0.5 ML SYR IV PRN (19:13)
--- NOTE | 2019-04-06 19:43 | Anesthesiology Progress Note ---
Date of Service April 06, 2019 Anesthesia Post Procedure Vital Signs Vital Signs: Temp Pulse Pulse Pulse Pulse Pulse Resp 04/06/19 19:40 36.5 C 101 H 14 04/06/19 19:30 103 H 17 04/06/19 19:20 102 H 17 04/06/19 19:10 105 H 16 04/06/19 19:02 36 C L 110 H 16 04/06/19 17:00 37 C 86 86 20 04/06/19 15:32 37.0 C 92 H 18 04/06/19 13:42 36.9 C 92 H 04/06/19 13:20 88 04/06/19 13:00 87 04/06/19 12:40 79 04/06/19 12:20 83 04/06/19 12:00 73 04/06/19 11:40 73 04/06/19 11:20 57 L 04/06/19 11:00 86 04/06/19 10:40 83 04/06/19 10:20 83 04/06/19 10:00 84 04/06/19 09:32 36.9 C 84 04/06/19 07:08 36.8 C 89 20 04/06/19 00:30 36.9 C 93 H 16 04/05/19 21:12 36.9 C 84 16 BP BP BP BP Pulse Ox 04/06/19 19:40 114/46 L 99 04/06/19 19:30 94/52 L 93 04/06/19 19:20 126/51 L 100 04/06/19 19:10 149/50 H 100 04/06/19 19:02 111/51 L 100 04/06/19 17:00 96/52 L 100 04/06/19 15:32 110/64 99 04/06/19 13:42 96/51 L 04/06/19 13:20 74/32 L 04/06/19 13:00 85/43 L 04/06/19 12:40 100/46 L 04/06/19 12:20 102/42 L 04/06/19 12:00 85/35 L 04/06/19 11:40 81/42 L 04/06/19 11:20 73/51 L 04/06/19 11:00 102/43 L 04/06/19 10:40 120/48 L 04/06/19 10:20 117/48 L 04/06/19 10:00 97/28 L 04/06/19 09:32 04/06/19 07:08 93/54 L 99 04/06/19 00:30 93/61 L 96 04/05/19 21:12 91/59 L 97 Pain Intensity Right Hand: Pain Intensity: 4 Transfer of Care Handoff Completed per policy Notes Mental Status: alert / awake / arousable Patient Amnestic to Procedure: Yes Nausea / Vomiting: adequately controlled Pain: adequately controlled Airway Patency, RR, SpO2: stable & adequate BP & HR: stable & adequate Hydration State: stable & adequate Anesthetic Complications: no major complications apparent and Pt Satisfied with anesthetic care
--- NOTE | 2019-04-06 20:10 | Hospitalist Progress Note ---
Date of Service April 06, 2019 Assessment & Plan (1) Ischemic finger: On 03/27, her right index finger became cool, mottled, and painful. Discussed this with Drs. Izaguirre, Derrick, and Isaiah, as well as a vascular surgeon from [place] in regards to any salvage therapy for the index finger. She was put on aspirin and Plavix. Heparin gtt was not done due to her INR being near therapeutic. - CTA right hand on 03/28 showed: 1) flow in the radial, ulnar, superficial palmar, and deep palmar arteries 2) no flow within the digital artery along the radial aspect of the second finger 3) thrombosis of the proximal digital artery along the ulnar aspect of the second finger 4) moderate stenosis with near complete to complete occlusion involving the digital artery along the ulnar aspect of the third finger - amputation as above (2) Osteomyelitis of hand, right, acute: - Diabetic hand infection. CT hand on 03/25 showed osteomyelitis. - Seen by vascular, ortho, and ID - Appreciate recs - Had extensive washout and debridement on 03/[address] Izaguirre - multiple abscesses, partial amputations of the second metacarpal head and second proximal phalanx - Wound culture with actinomyces, corynebacterium and probable anaerobic gram negative bacilli - wound does not appear to be healing well, patient removing dressing and chewing on site. - Had surgery on 03/31 amputated right index finger. - Continue imipenem/cilastatin - s/p 04/[address] Campos (3) Hypothyroidism: TSH was 0.2 on 03/26 with normal FT4. No signs/symptoms of hypo- /hyperthyroidism. - Continue home Synthroid 250 mcg - Will not change dose in setting of acute illness. (4) Hyperkalemia: resolved (5) DVT prophylaxis: warfarin when ok with surgery (6) Atrial fibrillation: History of atrial fibrillation and CVA. Chads-Vasc of 6, making her high- risk - Rate-controlled with metoprolol 25mg PO BID - Anticoagulation with warfarin - On presentation, her INR was 8.3 for which she received vitamin K 5mg IV x 1. - restart warfarin when ok with surgery (7) Diabetes: A1c of 9.7% on 03/25. - Continue basal bolus insulin with sliding scale coverage - Glycemic pharmacist consult (8) End-stage renal disease on hemodialysis: On admission - K+ up to 6.8. - S/p HD on 03/25 - Continue Bumex & sevelamer - On 03/27, K+ was back up to 6.3; possibly from tissue breakdown. - HD failed on 03/27 in the AM; U/s showed patent AV fistula. AVF infiltrated a second time in the evening. - On 03/27 at ~10pm, she had an urgent femoral HD line placed by pulm/cc - Underwent HD overnight of 03/27-03/28 - Appreciate nephrology recs -Potassium remains normal. (9) Anemia: Anemia of chronic disease and CKD. - Baseline hgb ~11; on 03/25 was 10.0. Hgb 8.8 on 03/28, but stable from 03/27. - has been mid to high 7s for last few days. recheck am (10) Restless leg syndrome: No current symptoms. - Continue ropinerole QHS Subjective Patient seen in dialysis. Awake and alert with some confusion. Hand continues to be painful Review of Systems Review of Systems: All systems reviewed & are unremarkable except as noted in HPI & below Physical Exam Physical Exam: General: no distress Eyes: normal inspection, PERLL Respiratory: chest non tender, clear to auscultation, normal breath sounds, no respiratory distress, no accessory muscle use Cardiac: regular rate and rhythm, no rub or gallop, no murmur, no edema, no jvd GI/: active bowel sounds, no abd pain or tenderness, soft, non distended Extremities: normal range of motion, normal strength, non tender Neuro/Psych: alert and oriented x 3, normal mood and affect Skin: normal color, dry Results & Data Vital Signs (Past 12 Hours) Vital Signs Temp Pulse Pulse Pulse Pulse Pulse Resp 04/06/19 19:40 36.5 C 101 H 14 04/06/19 19:30 103 H 17 04/06/19 19:20 102 H 17 04/06/19 19:10 105 H 16 04/06/19 19:02 36 C L 110 H 16 04/06/19 17:00 37 C 86 86 20 04/06/19 15:32 37.0 C 92 H 18 04/06/19 13:42 36.9 C 92 H 04/06/19 13:20 88 04/06/19 13:00 87 04/06/19 12:40 79 04/06/19 12:20 83 04/06/19 12:00 73 04/06/19 11:40 73 04/06/19 11:20 57 L 04/06/19 11:00 86 04/06/19 10:40 83 04/06/19 10:20 83 04/06/19 10:00 84 04/06/19 09:32 36.9 C 84 BP BP BP Pulse Ox 04/06/19 19:40 114/46 L 99 04/06/19 19:30 94/52 L 93 04/06/19 19:20 126/51 L 100 04/06/19 19:10 149/50 H 100 04/06/19 19:02 111/51 L 100 04/06/19 17:00 96/52 L 100 04/06/19 15:32 110/64 99 04/06/19 13:42 96/51 L 04/06/19 13:20 74/32 L 04/06/19 13:00 85/43 L 04/06/19 12:40 100/46 L 04/06/19 12:20 102/42 L 04/06/19 12:00 85/35 L 04/06/19 11:40 81/42 L 04/06/19 11:20 73/51 L 04/06/19 11:00 102/43 L 04/06/19 10:40 120/48 L 04/06/19 10:20 117/48 L 04/06/19 10:00 97/28 L 04/06/19 09:32
[2019-04-06] MEDS ORDERED: INSULIN GLARGINE SOLOSTAR 100 UNITS/ML 3 ML PEN SQ SCH (21:00)
[2019-04-06] MEDS ORDERED: INSULIN ASPART 100 UNITS/ML 3 ML PEN SC SCH (21:00)
[2019-04-06] MEDS ORDERED: OLANZapine 10 MG/2.1 ML SDV IM ONE (21:00)
[2019-04-06] MEDS: ATORVASTATIN 20 MG TAB PO SCH (22:06)
[2019-04-06] MEDS: SERTRALINE HCL 50 MG TABLET PO SCH (22:06)
[2019-04-06] MEDS: PRAMIPEXOLE DIHYDROCHLO 0.25 MG TAB PO SCH (22:06)
[2019-04-07] MEDS: HYDROmorphone INJ 1 MG/ML SYRINGE IV PRN ×3 (01:11→14:25)
[2019-04-07] MEDS: IMIPENEM/CILASTATIN SODIUM 200 MG in DEXTROSE 5% 100 ML IV SCH ×4 (03:00→20:20)
[2019-04-07] MEDS: ACETAMINOPHEN 500 MG TAB PO PRN ×2 (03:00→17:53)
[2019-04-07] MEDS: LEVOTHYROXINE SODIUM 200 MCG TABLET PO SCH (06:07)
[2019-04-07] MEDS: LEVOTHYROXINE SODIUM 50 MCG TABLET PO SCH (06:07)
[2019-04-07 07:31] LABS: Hematocrit (blood only) 22.7 % (37-47); Hemoglobin 7.2 g/dL (12.0-16.0); Mean Corpuscular Hgb Conc 31.7 g/dL (32-36); Mean Corpuscular Volume 99.1 fL (80-100); Mean Platelet Volume 9.2 fL (7.4-10.4); Platelet Count 293 K/uL (130-400); RDW Coefficient of Variation 15.4 % (11.5-14.5); RDW Standard Deviation 53.9 fL (36.4-46.3); Red Blood Count 2.29 M/uL (4.2-5.4); White Blood Count 9.71 K/uL (4.8-10.8)
[2019-04-07 08:20] LABS: BUN Creatinine Ratio 4.7 (10-20); Calcium 7.8 mg/dl (8.5-10.1); Creatinine Clr Calc Pharmacy 14.3 ml/min; Est GFR (Non-African American) 8.6; Potassium 4.2 mmol/L (3.5-5.1)
--- NOTE | 2019-04-07 08:29 | Operative Report ---
DATE OF OPERATION: 04/06/2019 PREOPERATIVE DIAGNOSES: 1. Right middle finger gangrene. 2. Right middle finger infection. 3. Right hand open wound. PROCEDURE: 1. Right middle finger ray amputation. 2. Right hand irrigation and debridement of skin and subcutaneous tissue and bone. 3. Right hand closure of open wound with fillet flap. 4. Right middle finger application of VAC sponge. SURGEON: Junito Colon MD PHYSICAL MEDICINE TEACHER: None. ANESTHESIA: General. INDICATIONS: This is a female status post index ray amputation. She presents with a breakdown of wound and she presents with a continued infection. She exhibits necrotic skin and open wound with exposed tendon over the middle finger. The risks and benefits have been discussed including, but not limited to, risk of infection, nerve injury, stiffness, loss of motion, failure to improve, etc. Reasonable outcomes and options of treatment were discussed. An explanation of appropriate alternatives to the procedure that may be advantageous were discussed and their risks and benefits, as well as the risks and benefits of not proceeding with treatment. I offered to answer any additional inquiries concerning the treatment involved. All the patient's questions were answered. The patient is agreeable, understanding of the treatment plan and alternatives, and wishes to proceed with the treatment plan. DESCRIPTION OF OPERATION: With a knife, I sharply excised necrotic skin and I performed debridement of skin, subcutaneous tissue, and bone. The skin on the ulnar aspect of the middle finger did appear to be somewhat viable and I shelled out the bone from the finger preserving the ulnar side of the skin and neurovascular bundle for a fillet flap. I then dissected out the metacarpal and identified the base of the metacarpal. I placed 2 Hohmann around the base of the metacarpal. With a sagittal saw, I sharply cut the metacarpal at its base. The metacarpal was excised as was the distal aspect of the finger completing ray amputation of the middle finger. I performed additional irrigation and debridement of any devitalized tissue. The area was copiously irrigated with 3 liters of bacitracin impregnated normal saline. I let the tourniquet down. Hemostasis was adequate and there did appear to be good bleeding in the area. The palmar arch was identified in the base of the wound and this did show significant calcification. I then performed a fillet flap with the skin from the finger. This was flapped in a retrograde fashion and this was sutured to partially close the wound under loose tension. This was sutured close with 3-0 nylon. There was an open wound approximately the size of a quarter over the dorsal aspect of the hand. I placed Adaptic over the areas as there was a small amount of exposed tendon. VAC sponge was placed and then I placed adherent for the VAC sponge and the VAC was placed and attached to the VAC machine under 125 mmHg of continuous suction. This resulted in a low leak. The patient was placed in a bulky soft dressing and was sent to the PACU in stable condition. I discussed the results of the procedure with the family in detail. I attest to the content of the Intraoperative Record and any orders documented therein. Any exception s are noted below.
[2019-04-07] MEDS ORDERED: INSULIN GLARGINE SOLOSTAR 100 UNITS/ML 3 ML PEN SQ ONE (08:30)
[2019-04-07] MEDS: INSULIN ASPART 100 UNITS/ML 3 ML PEN SC SCH ×4 (09:03→20:39)
--- NOTE | 2019-04-07 09:03 | Orthopedic Progress Note ---
Date of Service April 07, 2019 Assessment & Plan (1) Cellulitis of right hand: Right hand gangrene, index finger. 1. Right index finger ray amputation. 2. Right hand application of VAC sponge.3. Right hand irrigation and debridement of skin, subcutaneous tissue, and fascia done on 03/31/19 1. Right middle finger gangrene.2. Right middle finger infection.3. Right hand open wound. Second Surgery - 1. Right middle finger ray amputation.2. Right hand irrigation and debridement of skin and subcutaneous tissue and bone. 3. Right hand closure of open wound with fillet flap. 4. Right middle finger application of VAC sponge. 04/06/19 Continue current antibiotics as per medicine service. Another set of cultures was taken during this second surgery. Follow for now. If patient can keep from removing her dressing, continue wound VAC with plans for change of wound VAC on Friday per wound care team. Subjective Postop day 1 status post second I&D of right hand with amputation of gangrenous third finger. Patient is currently sitting up in bed. She was just bathed by nursing staff who is present. Nursing staff stated that patient was doing some kind of attempt to remove her dressing however the dressing was then rewrapped and t aped. Currently the patient complains of pain in the right hand but otherwise looks comfortable. She denies shortness of breath, chest pain, lightheadedness. Physical Exam Physical Exam: Dressing on the right hand is clean, dry, and intact. Wound VAC is functioning. Capillary refill on the remaining fingers is less than 2 seconds. Sensation appears to be intact. Results & Data Vital Signs (Past 12 Hours) Vital Signs Temp Pulse Pulse Resp BP BP Pulse Ox 04/07/19 06:59 36.9 C 80 18 112/54 L 96 04/07/19 02:16 37.1 C 81 18 103/62 100 04/06/19 23:00 37.1 C 99 H 20 101/65 100 04/06/19 22:04 36.4 C L 105 H 15 120/72 100
[2019-04-07] MEDS: CALCIUM CARBONATE 500 MG CHEWABLE TAB PO SCH ×3 (09:04→16:38)
[2019-04-07] MEDS: POLYETHYLENE (MIRALAX) 17 GM PACK PO SCH (09:05)
[2019-04-07] MEDS: METOPROLOL TARTRATE 25 MG TAB PO SCH ×2 (09:06→21:33)
[2019-04-07] MEDS: BUMETANIDE 1 MG TAB PO SCH (09:06)
[2019-04-07] MEDS: SEVELAMER HCL 800 MG TABLET PO SCH ×3 (09:07→17:30)
[2019-04-07] MEDS: CHOLECALCIFEROL 1,000 UNITS TAB PO SCH (09:07)
--- NOTE | 2019-04-07 10:13 | Nephrology Progress Note ---
Date of Service April 07, 2019 Assessment & Plan (1) End-stage renal disease on hemodialysis: -- Volume status and electrolyte balance are acceptable. Will schedule next HD for am -- AVF with very weak thrill and poor bruit, remains significantly ecchymotic and tender, this is being rested for now -- RIJ permcath placed 04/02/19 -- Renal diet (2) Cellulitis of right hand: -- Culture + corynebacterium, actinomyces and anaerobes -- Patient remains on imipenem -- ID following -- s/p I&D and index finger amputation 03/31/19 -- R middle finger ray amputation 04/06/19 (3) Anemia: -- Tsat 65% and ferritin >1000 -- Hgb remains stable at 7.6. Patient is asymptomatic -- Will provide SHANI w/ HD tomorrow -- Primary service to consider transfusion 1 U PRBC today (4) Secondary hyperparathyroidism of renal origin: Subjective Ms. Ardon was seen & examined in her hospital room this morning. She complains of R hand discomfort due to recent surgery and wound vac. Review of Systems Respiratory: no dyspnea Cardiovascular: no chest pain Gastrointestinal: no abdominal pain and no diarrhea/loose stools Physical Exam Neck: trachea midline, no thyromegaly Respiratory: normal respiratory effort, lungs clear to auscultation Cardiovascular: RRR, no murmur, no edema Extremities: + AV fistula (palpable thrill. Soft bruit. Large area of surrounding ecchymosis) Gastrointestinal (Abdomen): normal bowel sounds, soft, nontender, no hepatosplenomegaly Results & Data Vital Signs (Past 12 Hours) Vital Signs Temp Pulse Pulse Resp BP BP Pulse Ox 04/07/19 06:59 36.9 C 80 18 112/54 L 96 04/07/19 02:16 37.1 C 81 18 103/62 100 04/06/19 23:00 37.1 C 99 H 20 101/65 100 Laboratory Results Laboratory Tests 04/06/19 04/06/19 04/07/19 05:38 05:38 07:21 WBC 11.03 H 9.71 Hgb 7.6 L 7.2 L Hct 23.7 L 22.7 L Plt Count 327 293 Sodium 130 L Potassium 4.5 Chloride 99 Carbon Dioxide 21 BUN 41 H Creatinine 7.43 H* D Glucose 129 H 04/07/19 07:21 WBC Hgb Hct Plt Count Sodium 135 L Potassium 4.2 Chloride 103 Carbon Dioxide 23 BUN 24 H Creatinine 5.07 H* D Glucose 149 H
[2019-04-07] MEDS: HYDROCODONE/ACETAMOPHEN 5/325MG TAB PO PRN ×3 (12:18→18:34)
--- NOTE | 2019-04-07 14:47 | Hospitalist Progress Note ---
Date of Service April 07, 2019 Assessment & Plan (1) Ischemic finger: On 03/27, her right index finger became cool, mottled, and painful. Discussed this with Drs. Izaguirre, Derrick, and Isaiah, as well as a vascular surgeon from [place] in regards to any salvage therapy for the index finger. She was put on aspirin and Plavix. Heparin gtt was not done due to her INR being near therapeutic. - CTA right hand on 03/28 showed: 1) flow in the radial, ulnar, superficial palmar, and deep palmar arteries 2) no flow within the digital artery along the radial aspect of the second finger 3) thrombosis of the proximal digital artery along the ulnar aspect of the second finger 4) moderate stenosis with near complete to complete occlusion involving the digital artery along the ulnar aspect of the third finger - amputation as above (2) Osteomyelitis of hand, right, acute: - Diabetic hand infection. CT hand on 03/25 showed osteomyelitis. - Seen by vascular, ortho, and ID - Appreciate recs - Had extensive washout and debridement on 03/[address] Izaguirre - multiple abscesses, partial amputations of the second metacarpal head and second proximal phalanx - Wound culture with actinomyces, corynebacterium and probable anaerobic gram negative bacilli - wound does not appear to be healing well, patient removing dressing and chewing on site. - Had surgery on 03/31 amputated right index finger. - Continue imipenem/cilastatin - s/p 04/[address] Campos, wound vac in place, will have it exchanged on Friday. (3) Hypothyroidism: TSH was 0.2 on 03/26 with normal FT4. No signs/symptoms of hypo- /hyperthyroidism. - Continue home Synthroid 250 mcg - Will not change dose in setting of acute illness. (4) Hyperkalemia: resolved (5) DVT prophylaxis: warfarin (6) Atrial fibrillation: History of atrial fibrillation and CVA. Chads-Vasc of 6, making her high- risk - Rate-controlled with metoprolol 25mg PO BID - On presentation, her INR was 8.3 for which she received vitamin K 5mg IV x 1. - restart warfarin, INR in am (7) Diabetes: A1c of 9.7% on 03/25. - Continue basal bolus insulin with sliding scale coverage - Glycemic pharmacist consult (8) End-stage renal disease on hemodialysis: On admission - K+ up to 6.8. - S/p HD on 03/25 - Continue Bumex & sevelamer - On 03/27, K+ was back up to 6.3; possibly from tissue breakdown. - HD failed on 03/27 in the AM; U/s showed patent AV fistula. AVF infiltrated a second time in the evening. - On 03/27 at ~10pm, she had an urgent femoral HD line placed by pulm/cc - Underwent HD overnight of 03/27-03/28 - Appreciate nephrology recs -Potassium remains normal. (9) Anemia: Anemia of chronic disease and CKD. - Baseline hgb ~11; on 03/25 was 10.0. Hgb 8.8 on 03/28, but stable from 03/27. - 7.2 this am, will hold off on replacement unless drops below 7 in the absence of symptoms (10) Restless leg syndrome: No current symptoms. - Continue ropinerole QHS Subjective Ms. Ardon is up to a chair, feeling better except for pain in her hand. She is oriented, conversant. Review of Systems Review of Systems: All systems reviewed & are unremarkable except as noted in HPI & below Physical Exam Physical Exam: General: no distress Eyes: normal inspection, PERLL Respiratory: chest non tender, clear to auscultation, normal breath sounds, no respiratory distress, no accessory muscle use Cardiac: regular rate and rhythm, no rub or gallop, no murmur, no edema, no jvd GI/: active bowel sounds, no abd pain or tenderness, soft, non distended Extremities: normal range of motion, normal strength, non tender Neuro/Psych: alert and oriented x 3, normal mood and affect Skin: normal color, dry Results & Data Vital Signs (Past 12 Hours) Vital Signs Temp Pulse Resp BP Pulse Ox 04/07/19 10:55 36.7 C 78 18 93/54 L 98 04/07/19 06:59 36.9 C 80 18 112/54 L 96
--- NOTE | 2019-04-07 14:52 | Pharmacy Report ---
Pharmacy Glycemic Short Note 2 - Date of Service April 07, 2019 - Glycemic Short BSG Results (Last 24 hours): 04/06/19 04/06/19 04/07/19 19:09 21:28 07:21 Glucose 149 H POC Glucose 128 H 157 H 04/07/19 04/07/19 08:05 12:05 Glucose POC Glucose 165 H 194 H OUTPATIENT REGIMEN: * Lantus 20 units SQ BID * Humalog SC ACHS, 06/01/07/31 units ASSESSMENT: * 58 yo F with osteomyelitis/gangrene on imipenem. POD 7 s/p amputation of R index finger and now POD 1 s/p I&D with amputation of R 3rd finger * Patient received HD yesterday. Next planned for 04/08 * Basal insulin * Fasting BSG 165 mg/dL after a total of 10 units of Lantus administered yesterday. Will increase slightly today. PLAN FOR INPATIENT GLYCEMIC CONTROL: * Basal insulin: Lantus 10 units SC x1 this AM then ongoing BID based on BSG * 0 units for BSG less than 110 mg/dL * 5 units for BSG 110-140 mg/dL * 8 units for BSG greater than 140 mg/dL * Bolus insulin - no changes * NovoLog per scale ACHS or Q6hrs while NPO * Goal Range: Low 110 mg/dL - High 140 mg/dL * Correction Factor: 20 mg/dL/unit * Nutritional / Prandial insulin per carb ratio of 1 unit per 6 grams CHO consumed
[2019-04-07 15:08] LABS: Prothrombin Time 19.5 Seconds (9.0-12.0)
--- NOTE | 2019-04-07 15:52 | Infectious Disease Progress Nt ---
Date of Service April 07, 2019 Assessment & Plan (1) Cellulitis of right hand: 58-year-old female with end-stage renal disease on dialysis deep right hand infection status post further debridement, with persistent pain persistent pain and distal small artery obstruction. Cultures have grown corynebacterium, actinomyces, and anaerobes. Should be well covered with imipenem. Will follow. Subjective Patient seen in follow-up for right hand infection. Pain slightly better today. Remains afebrile. Appears to be tolerating antibiotic without apparent difficulty. Review of Systems Review of Systems: All systems reviewed & are unremarkable except as noted in HPI & below Physical Exam Constitutional: WD/WN, vitals as above + acute distress and + ill appearing Eyes: PERRL, conjunctivae normal, anicteric sclerae ENMT: external ear and nose normal, oropharynx normal Neck: trachea midline, no thyromegaly neck nontender Respiratory: normal respiratory effort, lungs clear to auscultation normal percussion; no respiratory distress and does not use accessory muscles Cardiovascular: Rate/Rhythm: regular rate and regular rhythm Heart Sounds: normal S1 and normal S2; no gallop, no murmur and no cardiac rub Vessels: normal peripheral pulses; no JVD Gastrointestinal (Abdomen): normal bowel sounds, soft, nontender, no hepatosplenomegaly Musculoskeletal: no cyanosis or clubbing, extremities motor strength 5/5 Spine: thoracic spine normal to inspection and lumbar spine normal to inspection; no cervical spinal tenderness Skin: no rashes Neurologic: patellar DTR's 2+ bilat, sensation intact moves all extremities and awake; no focal motor deficits Motor/Sensory: no sensory deficit Psychiatric: A+Ox3, euthymic affect Orientation: cooperative Lymphatic: no cervical or axillary lymphadenopathy no inguinal lymphadenopathy Results & Data Vital Signs (Past 12 Hours) Vital Signs Temp Pulse Pulse Resp BP BP Pulse Ox 04/07/19 15:25 95/66 L 04/07/19 15:10 36.8 C 82 18 88/59 L 99 04/07/19 10:55 36.7 C 78 18 93/54 L 98 04/07/19 06:59 36.9 C 80 18 112/54 L 96 Laboratory Results Short CBC 04/07/19 Range/Units 07:21 WBC 9.71 (4.8-10.8) K/uL Hgb 7.2 L (12.0-16.0) g/dL Hct 22.7 L (37-47) % Plt Count 293 (130-400) K/uL BMP 04/07/19 07:21 Sodium 135 L Potassium 4.2 Chloride 103 Carbon Dioxide 23 BUN 24 H Creatinine 5.07 H* D Glucose 149 H Calcium 7.8 L Diagnostic Findings Microbiology 04/06/19 Unknown Finger Gram Stain - Final 04/06/19 Unknown Finger Aerobic and Anaerobic Culture - Preliminary Staphylococcus species 03/31/19 11:05 Blood Blood Culture - Final No growth 03/31/19 11:03 Blood Blood Culture - Final No growth 03/26/19 17:44 Hand,Right Gram Stain - Final 03/26/19 17:44 Hand,Right Aerobic and Anaerobic Culture - Final Corynebacterium species Actinomyces turicensis Probable juli gram neg bacilli 03/26/19 17:44 Hand,Right Gram Stain - Final 03/26/19 17:44 Hand,Right Aerobic and Anaerobic Culture - Final No growth 03/24/19 23:36 Blood Blood Culture - Final No growth 03/24/19 21:42 Blood Blood Culture - Final No growth
[2019-04-07] MEDS: WARFARIN SOD 3 MG TAB PO SCH (16:29)
--- NOTE | 2019-04-07 17:31 | Ultrasound Report ---
Biliary ultrasound CLINICAL HISTORY: Elevated INR COMPARISON STUDY: No previous studies for comparison. FINDINGS: The pancreas was poorly visualized. No focal hepatic masses are delineated. There is no jimi milton dilatation. The common bile duct measures 5 mm. The gallbladder surgically absent. There is no ri ght-sided hydronephrosis. There is right-sided cortical thinning. There are nonspecific right renal c alcifications possibly vascular. IMPRESSION: 1. No focal hepatic masses. No evidence of ductal dilatation 2. Surgically absent gallbladder 3. Nondiagnostic evaluation of the pancreas. Electronically signed by: Fredis Doloey M.D. 04/07/2019 5:29 PM
[2019-04-07] MEDS ORDERED: OLANZapine 10 MG/2.1 ML SDV IM STA (19:19)
--- NOTE | 2019-04-07 19:25 | Progress Note ---
Date of Service April 07, 2019 Received page from the patient's nurse that the patient once again is becoming more agitated, screaming, and is chewing on her dressing. This seems to happen nightly. Fortunately, she generally responds well to Zyprexa 2.5 mg IM. Her psychiatric consultation from April 05 was again reviewed. Perhaps they can see her again given her repeated self-harm behaviors. Russ Littlejohn, PGY2 Overnight call Results & Data Vital Signs (Past 12 Hours) Vital Signs Temp Pulse Pulse Resp BP BP Pulse Ox 04/07/19 15:25 95/66 L 04/07/19 15:10 36.8 C 82 18 88/59 L 99 04/07/19 10:55 36.7 C 78 18 93/54 L 98
--- NOTE | 2019-04-07 19:35 | Progress Note ---
DATE: 04/07/2019 SUBJECTIVE: The patient is seen at the bedside today. She has appropriate amount of pain in the hand. OBJECTIVE: EXTREMITIES: On right hand examination, VAC is well fitting and is intact and does show 125 mmHg continuous suction. I do not detect gross bacterial infection or significant streaking erythema. The wound at this point is closed and does not show evidence of necrosis. ASSESSMENT: Postoperative day 1 ray amputation middle finger and application of vacuum-assisted closure. PLAN: At this point in time, we will continue VAC sponge, recommend wound care consult for change of VAC. No further surgical treatment plans at this time, but we will follow the wound to make sure it does heal. We will continue antibiotics as per Infectious Disease.
[2019-04-07] MEDS: SERTRALINE HCL 50 MG TABLET PO SCH (20:27)
[2019-04-07] MEDS: PRAMIPEXOLE DIHYDROCHLO 0.25 MG TAB PO SCH (20:27)
[2019-04-07] MEDS: ATORVASTATIN 20 MG TAB PO SCH (20:27)
[2019-04-07] MEDS: INSULIN GLARGINE SOLOSTAR 100 UNITS/ML 3 ML PEN SC SCH (20:37)
[2019-04-07] MEDS ORDERED: QUETIAPINE FUMARATE 25 MG TABLET PO STA (22:46)
[2019-04-08] MEDS: IMIPENEM/CILASTATIN SODIUM 200 MG in DEXTROSE 5% 100 ML IV SCH ×4 (03:11→22:11)
[2019-04-08] MEDS: HYDROmorphone INJ 1 MG/ML SYRINGE IV PRN ×3 (03:17→22:11)
[2019-04-08] MEDS: LEVOTHYROXINE SODIUM 200 MCG TABLET PO SCH (06:19)
[2019-04-08] MEDS: LEVOTHYROXINE SODIUM 50 MCG TABLET PO SCH (06:19)
[2019-04-08 06:22] LABS: Hematocrit (blood only) 21.5 % (37-47); Mean Corpuscular Hgb Conc 32.6 g/dL (32-36); Mean Corpuscular Volume 99.1 fL (80-100); Mean Platelet Volume 9.3 fL (7.4-10.4); Nucleated RBC # (auto) 0.03 K/uL (0-0); Nucleated RBC % (auto) 0.3 %; Platelet Count 291 K/uL (130-400); RDW Coefficient of Variation 15.4 % (11.5-14.5); Red Blood Count 2.17 M/uL (4.2-5.4); White Blood Count 9.16 K/uL (4.8-10.8)
[2019-04-08] MEDS ORDERED: EPOETIN ALFA 10,000 UNITS/ML VIAL IV ONE (07:00)
[2019-04-08] MEDS ORDERED: HEPARIN SOD (PORCINE) 1000 UNIT/ML 10 ML VIAL IV ONE (07:00)
[2019-04-08] MEDS ORDERED: SODIUM CHLORIDE 0.9% 1000ML 1,000 ML IV PRN (07:00)
[2019-04-08 07:02] LABS: Alanine Aminotransferase < 6 U/L (12-78); Alkaline Phosphatase 147 U/L (45-117); Aspartate Aminotransferase 10 U/L (15-37); BUN Creatinine Ratio 5.3 (10-20); Bilirubin Direct 0.1 mg/dl (0-0.2); Bilirubin,Total 0.5 mg/dl (0.2-1); Blood Urea Nitrogen 35 mg/dl (7-18); Calcium 7.9 mg/dl (8.5-10.1); Carbon Dioxide 24 mmol/L (21-32); Chloride 102 mmol/L (98-107); Creatinine Clr Calc Pharmacy 11.2 ml/min; Est GFR (African American) 7.4; Est GFR (Non-African American) 6.4; Glucose 124 mg/dl (70-99); Potassium 4.3 mmol/L (3.5-5.1); Sodium 132 mmol/L (136-145); Total Protein 6.8 gm/dl (6.4-8.2)
[2019-04-08] MEDS ORDERED: SODIUM CHLORIDE 0.9% 250 ML IV PRN (08:30)
[2019-04-08] MEDS: HYDROCODONE/ACETAMOPHEN 5/325MG TAB PO PRN (09:29)
[2019-04-08] MEDS: CALCIUM CARBONATE 500 MG CHEWABLE TAB PO SCH ×3 (09:30→17:24)
[2019-04-08] MEDS: SEVELAMER HCL 800 MG TABLET PO SCH ×3 (09:30→17:24)
[2019-04-08] MEDS: BUMETANIDE 1 MG TAB PO SCH (09:30)
[2019-04-08] MEDS: INSULIN GLARGINE SOLOSTAR 100 UNITS/ML 3 ML PEN SC SCH ×2 (09:31→22:04)
[2019-04-08] MEDS: CHOLECALCIFEROL 1,000 UNITS TAB PO SCH (09:31)
[2019-04-08] MEDS: INSULIN ASPART 100 UNITS/ML 3 ML PEN SC SCH ×4 (09:33→22:03)
[2019-04-08] MEDS: METOPROLOL TARTRATE 25 MG TAB PO SCH ×2 (09:35→22:01)
[2019-04-08] MEDS: ASPIRIN 81 MG ECTAB PO SCH (10:00)
[2019-04-08] MEDS: CLOPIDOGREL BISULFATE 75 MG TAB PO SCH (10:01)
[2019-04-08] MEDS: POLYETHYLENE (MIRALAX) 17 GM PACK PO SCH (10:01)
--- NOTE | 2019-04-08 10:25 | Nephrology Progress Note ---
Date of Service April 08, 2019 Assessment & Plan (1) End-stage renal disease on hemodialysis: -- HD has been scheduled for today. Orders have been entered into the EMR and HD RN notified -- AVF with very weak thrill and poor bruit, remains significantly ecchymotic and tender. Patient is unable to hold arm still due to discomfort from recent surgery. Will continue to rest AVF -- RIJ permcath placed 04/02/19 -- Renal diet (2) Cellulitis of right hand: -- Culture + corynebacterium, actinomyces and anaerobes -- Patient remains on imipenem -- ID following -- s/p I&D and index finger amputation 03/31/19 -- R middle finger ray amputation 04/06/19 (3) Anemia: -- Tsat 65% and ferritin >1000 -- Hgb remains stable at 7.6. Patient is asymptomatic -- Will provide SHANI w/ HD today -- Primary service to consider transfusion 1 U PRBC (4) Secondary hyperparathyroidism of renal origin: Subjective Ms. Ardon was seen & examined in her hospital room this morning. She complains of R hand discomfort due to recent surgery and wound vac. Review of Systems Respiratory: no dyspnea Cardiovascular: no chest pain Gastrointestinal: no abdominal pain, no vomiting and no diarrhea/loose stools Physical Exam Neck: trachea midline, no thyromegaly Respiratory: normal respiratory effort, lungs clear to auscultation Cardiovascular: RRR, no murmur, no edema Extremities: + AV fistula (palpable thrill. Soft bruit. Large area of surrounding ecchymosis) Gastrointestinal (Abdomen): normal bowel sounds, soft, nontender, no hepatosplenomegaly Results & Data Vital Signs (Past 12 Hours) Vital Signs Temp Pulse Pulse Resp BP BP Pulse Ox 04/08/19 09:11 91 H 106/58 L 04/08/19 07:48 37.0 C 92 H 20 121/71 100 04/07/19 23:45 36.9 C 85 18 86/57 L 98 Laboratory Results Laboratory Tests 04/08/19 04/08/19 06:15 06:15 WBC 9.16 Hgb 7.0 L Hct 21.5 L Plt Count 291 Sodium 132 L Potassium 4.3 Chloride 102 Carbon Dioxide 24 BUN 35 H Creatinine 6.51 H* D Glucose 124 H
--- NOTE | 2019-04-08 15:12 | Hospitalist Progress Note ---
Date of Service April 08, 2019 Assessment & Plan (1) Ischemic finger: On 03/27, her right index finger became cool, mottled, and painful. Discussed this with Drs. zIaguirre, Derrick, and Isaiah, as well as a vascular surgeon from [employer] in regards to any salvage therapy for the index finger. She was put on aspirin and Plavix. Heparin gtt was not done due to her INR being near therapeutic. - CTA right hand on 03/28 showed: 1) flow in the radial, ulnar, superficial palmar, and deep palmar arteries 2) no flow within the digital artery along the radial aspect of the second finger 3) thrombosis of the proximal digital artery along the ulnar aspect of the second finger 4) moderate stenosis with near complete to complete occlusion involving the digital artery along the ulnar aspect of the third finger - amputation as below (2) Osteomyelitis of hand, right, acute: - Diabetic hand infection. CT hand on 03/25 showed osteomyelitis. - Seen by vascular, ortho, and ID - Appreciate recs - Had extensive washout and debridement on 03/[address] Izaguirre - multiple abscesses, partial amputations of the second metacarpal head and second proximal phalanx - Wound culture with actinomyces, corynebacterium and probable anaerobic gram negative bacilli - wound does not appear to be healing well, patient removing dressing and chewing on site. - Had surgery on 03/31 amputated right index finger. - Continue imipenem/cilastatin - s/p 04/[address] Campos, wound vac in place, will have it exchanged on Friday. - nurse consulted (3) Hypothyroidism: TSH was 0.2 on 03/26 with normal FT4. No signs/symptoms of hypo- /hyperthyroidism. - Continue home Synthroid 250 mcg - Will not change dose in setting of acute illness. (4) Hyperkalemia: resolved (5) Atrial fibrillation: History of atrial fibrillation and CVA. Chads-Vasc of 6, making her high- risk - Rate-controlled with metoprolol 25mg PO BID - On presentation, her INR was 8.3 for which she received vitamin K 5mg IV x 1. - Can restart coumadin per surgery however patient has been therapeutic without having received any Coumadin since 03/27. This is likely nutritional. Liver US without any sign of liver disease. INR elevation is likely nutritional. (6) Diabetes: A1c of 9.7% on 03/25. - Continue basal bolus insulin with sliding scale coverage - Glycemic pharmacist consult (7) End-stage renal disease on hemodialysis: On admission - K+ up to 6.8. - S/p HD on 03/25 - Continue Bumex & sevelamer - On 03/27, K+ was back up to 6.3; possibly from tissue breakdown. - HD failed on 03/27 in the AM; U/s showed patent AV fistula. AVF infiltrated a second time in the evening. - On 03/27 at ~10pm, she had an urgent femoral HD line placed by pulm/cc - Underwent HD overnight of 03/27-03/28 - Appreciate nephrology recs -Potassium remains normal. (8) Anemia: Anemia of chronic disease and CKD. - Baseline hgb ~11; on 03/25 was 10.0. Hgb 8.8 on 03/28, but stable from 03/27. - 7.0 - 2 units PRBCs during dialysis today (9) Restless leg syndrome: No current symptoms. - Continue ropinerole QHS (10) Delirium: Continues to have agitation and behavior issues at night, chewing on her dressing during the day. Will increase her seroquel from 12.5 to 25 mg HS. (11) DVT prophylaxis: therapeutic INR Subjective Ms. Ardon is very drowsy today. Per overnight nights she was agitated and required additional antipsychotic. Her hand continues to hurt at the incision site. Review of Systems Review of Systems: All systems reviewed & are unremarkable except as noted in HPI & below Physical Exam Physical Exam: General: no distress Eyes: normal inspection, PERLL Respiratory: chest non tender, clear to auscultation, normal breath sounds, no respiratory distress, no accessory muscle use Cardiac: regular rate and rhythm, no rub or gallop, no murmur, no edema, no jvd GI/: active bowel sounds, no abd pain or tenderness, soft, non distended Extremities: normal range of motion, normal strength, non tender Neuro/Psych:drowsy, oriented x 3, normal mood and affect Skin: normal color, dry, wound vac in place Results & Data Vital Signs (Past 12 Hours) Vital Signs Temp Pulse Pulse Pulse Resp BP BP 04/08/19 13:19 36.9 C 81 16 108/64 04/08/19 13:13 36.9 C 80 16 109/64 04/08/19 13:10 36.8 C 81 16 122/64 04/08/19 12:40 80 105/64 04/08/19 12:24 36.8 C 88 16 124/64 04/08/19 09:11 91 H 106/58 L 04/08/19 07:48 37.0 C 92 H 20 BP Pulse Ox 04/08/19 13:19 04/08/19 13:13 04/08/19 13:10 04/08/19 12:40 04/08/19 12:24 100 04/08/19 09:11 04/08/19 07:48 121/71 100
--- NOTE | 2019-04-08 16:27 | Orthopedic Progress Note ---
Date of Service April 08, 2019 Assessment & Plan (1) Cellulitis of right hand: Right hand gangrene, index finger. 1. Right index finger ray amputation. 2. Right hand application of VAC sponge.3. Right hand irrigation and debridement of skin, subcutaneous tissue, and fascia done on 03/31/19 1. Right middle finger gangrene.2. Right middle finger infection.3. Right hand open wound. Second Surgery - 1. Right middle finger ray amputation.2. Right hand irrigation and debridement of skin and subcutaneous tissue and bone. 3. Right hand closure of open wound with fillet flap. 4. Right middle finger application of VAC sponge. 04/06/19 Continue current antibiotics as per medicine/ID service. Another set of cultures was taken during this second surgery. Now growing Coag Neg Staph on prelim. antibx as per ID team. Subjective Pt currently resting comfortably. Pain control appears adequate. No new complaints. Physical Exam Physical Exam: Dressings intact. No overt drainage on dressings. Wound vac functioning. Remainder of fingers pink with good cap refill. Results & Data Vital Signs (Past 12 Hours) Vital Signs Temp Pulse Pulse Pulse Pulse Resp BP 04/08/19 15:19 37 C 83 18 04/08/19 13:19 36.9 C 81 16 108/64 04/08/19 13:13 36.9 C 80 16 109/64 04/08/19 13:10 36.8 C 81 16 122/64 04/08/19 12:40 80 105/64 04/08/19 12:24 36.8 C 88 16 124/64 04/08/19 09:11 91 H 04/08/19 07:48 37.0 C 92 H 20 BP BP Pulse Ox 04/08/19 15:19 93/59 L 100 04/08/19 13:19 04/08/19 13:13 04/08/19 13:10 04/08/19 12:40 04/08/19 12:24 100 04/08/19 09:11 106/58 L 04/08/19 07:48 121/71 100
--- NOTE | 2019-04-08 17:34 | Infectious Disease Progress Nt ---
Date of Service April 08, 2019 Assessment & Plan (1) Cellulitis of right hand: 58-year-old female with end-stage renal disease on dialysis deep right hand infection status post further debridement and finger amputation. Cultures growing actinomyces and anaerobic gram-negative bacilli. Most recent culture with coag negative staph. Continue current antibiotics. Will follow. Subjective Pt currently resting comfortably. Pain control appears adequate. No new complaints. Review of Systems Review of Systems: All systems reviewed & are unremarkable except as noted in HPI & below Physical Exam Constitutional: WD/WN, vitals as above + acute distress and + ill appearing Eyes: PERRL, conjunctivae normal, anicteric sclerae ENMT: external ear and nose normal, oropharynx normal Neck: trachea midline, no thyromegaly neck nontender Respiratory: normal respiratory effort, lungs clear to auscultation normal percussion; no respiratory distress and does not use accessory muscles Cardiovascular: Rate/Rhythm: regular rate and regular rhythm Heart Sounds: normal S1 and normal S2; no gallop, no murmur and no cardiac rub Vessels: normal peripheral pulses; no JVD Gastrointestinal (Abdomen): normal bowel sounds, soft, nontender, no hepatosplenomegaly Musculoskeletal: no cyanosis or clubbing, extremities motor strength 5/5 Spine: thoracic spine normal to inspection and lumbar spine normal to inspection; no cervical spinal tenderness Skin: no rashes Dressing in place right hand Neurologic: patellar DTR's 2+ bilat, sensation intact moves all extremities and awake; no focal motor deficits Motor/Sensory: no sensory deficit Psychiatric: A+Ox3, euthymic affect Orientation: cooperative Lymphatic: no cervical or axillary lymphadenopathy no inguinal lymphadenopathy Results & Data Vital Signs (Past 12 Hours) Vital Signs Temp Pulse Pulse Pulse Pulse Resp BP 04/08/19 15:19 37 C 83 18 04/08/19 13:19 36.9 C 81 16 108/64 04/08/19 13:13 36.9 C 80 16 109/64 04/08/19 13:10 36.8 C 81 16 122/64 04/08/19 12:40 80 105/64 04/08/19 12:24 36.8 C 88 16 124/64 04/08/19 09:11 91 H 04/08/19 07:48 37.0 C 92 H 20 BP BP Pulse Ox 04/08/19 15:19 93/59 L 100 04/08/19 13:19 04/08/19 13:13 04/08/19 13:10 04/08/19 12:40 04/08/19 12:24 100 04/08/19 09:11 106/58 L 04/08/19 07:48 121/71 100 Laboratory Results Short CBC 04/08/19 Range/Units 06:15 WBC 9.16 (4.8-10.8) K/uL Hgb 7.0 L (12.0-16.0) g/dL Hct 21.5 L (37-47) % Plt Count 291 (130-400) K/uL BMP 04/08/19 06:15 Sodium 132 L Potassium 4.3 Chloride 102 Carbon Dioxide 24 BUN 35 H Creatinine 6.51 H* D Glucose 124 H Calcium 7.9 L Liver Function 04/08/19 Range/Units 06:15 Total Bilirubin 0.5 (0.2-1) mg/dl Direct Bilirubin 0.1 (0-0.2) mg/dl AST 10 L (15-37) U/L ALT < 6 L (12-78) U/L Alkaline Phosphatase 147 H (45-117) U/L Albumin 2.0 L (3.4-5.0) gm/dl Diagnostic Findings Microbiology 04/06/19 Unknown Finger Gram Stain - Final 04/06/19 Unknown Finger Aerobic and Anaerobic Culture - Preliminary Coag negative Staphylococcus 03/31/19 11:05 Blood Blood Culture - Final No growth 03/31/19 11:03 Blood Blood Culture - Final No growth 03/26/19 17:44 Hand,Right Gram Stain - Final 03/26/19 17:44 Hand,Right Aerobic and Anaerobic Culture - Final Corynebacterium species Actinomyces turicensis Probable juli gram neg bacilli 03/26/19 17:44 Hand,Right Gram Stain - Final 03/26/19 17:44 Hand,Right Aerobic and Anaerobic Culture - Final No growth 03/24/19 23:36 Blood Blood Culture - Final No growth 03/24/19 21:42 Blood Blood Culture - Final No growth
[2019-04-08] MEDS ORDERED: QUETIAPINE FUMARATE 25 MG TABLET PO SCH (21:00)
[2019-04-08] MEDS: PRAMIPEXOLE DIHYDROCHLO 0.25 MG TAB PO SCH (22:01)
[2019-04-08] MEDS: SERTRALINE HCL 50 MG TABLET PO SCH (22:01)
[2019-04-08] MEDS: QUETIAPINE FUMARATE 25 MG TABLET PO SCH (22:01)
[2019-04-08] MEDS: ATORVASTATIN 20 MG TAB PO SCH (22:02)
[2019-04-09] MEDS: IMIPENEM/CILASTATIN SODIUM 200 MG in DEXTROSE 5% 100 ML IV SCH ×4 (03:15→21:24)
[2019-04-09] MEDS: LEVOTHYROXINE SODIUM 200 MCG TABLET PO SCH (05:50)
[2019-04-09] MEDS: LEVOTHYROXINE SODIUM 50 MCG TABLET PO SCH (05:50)
[2019-04-09] MEDS: HYDROmorphone INJ 1 MG/ML SYRINGE IV PRN ×3 (05:59→23:52)
[2019-04-09 06:01] LABS: Hematocrit (blood only) 27.5 % (37-47); Hemoglobin 8.8 g/dL (12.0-16.0); Mean Corpuscular Volume 95.8 fL (80-100); Mean Platelet Volume 9.7 fL (7.4-10.4); Platelet Count 298 K/uL (130-400); RDW Coefficient of Variation 17.6 % (11.5-14.5); RDW Standard Deviation 60.2 fL (36.4-46.3); Red Blood Count 2.87 M/uL (4.2-5.4); White Blood Count 8.04 K/uL (4.8-10.8)
[2019-04-09 06:10] LABS: INR 1.4 (0.9-1.1)
[2019-04-09 06:44] LABS: BUN Creatinine Ratio 4.6 (10-20); Calcium 8.1 mg/dl (8.5-10.1); Creatinine Clr Calc Pharmacy 13.6 ml/min; Est GFR (African American) 9.3; Potassium 4.6 mmol/L (3.5-5.1)
--- NOTE | 2019-04-09 08:39 | Orthopedic Progress Note ---
Date of Service April 09, 2019 Assessment & Plan (1) Cellulitis of right hand: POD 9 Right hand gangrene, index finger. 1. Right index finger ray amputation. 2. Right hand application of VAC sponge.3. Right hand irrigation and debridement of skin, subcutaneous tissue, and fascia done on 03/31/19 1. POD 3 Right middle finger gangrene.2. Right middle finger infection.3. Right hand open wound. Second Surgery - 1. Right middle finger ray amputation.2. Right hand irrigation and debridement of skin and subcutaneous tissue and bone. 3. Right hand closure of open wound with fillet flap. 4. Right middle finger application of VAC sponge. 04/06/19 Continue current antibiotics as per medicine/ID service. Another set of cultures was taken during this second surgery. Now growing Coag Neg Staph on prelim. antibx as per ID team. New wound vac applied. Will discuss case with Dr Colon today. Subjective Pt awake,alert. WC nurse present removing the wound vac at present time. Pt appears to be tolerating well. C/O pain mostly when the hand is manipulated. No new complaints. Physical Exam Physical Exam: Darkened erythema noted over the 4th MTP area going slightly distal over the proximal phalanx. Proximal end of flap with questio of necrosis . No overt purulence in the wound. Darkened area of the proximal edge of the wound about 1cm in width noted. Question of necrosis vs hematoma formation. Capillary refill of remainder of fingers less than 2 seconds. Results & Data Vital Signs (Past 12 Hours) Vital Signs Temp Pulse Pulse Resp BP BP Pulse Ox 04/09/19 07:33 37.2 C 83 16 108/66 97 04/08/19 23:00 37.2 C 90 18 115/57 L 97 04/08/19 21:58 94 H 136/66
[2019-04-09] MEDS ORDERED: INSULIN GLARGINE SOLOSTAR 100 UNITS/ML 3 ML PEN SC SCH (09:00)
[2019-04-09] MEDS: BUMETANIDE 1 MG TAB PO SCH (09:06)
[2019-04-09] MEDS: HYDROCODONE/ACETAMOPHEN 5/325MG TAB PO PRN ×2 (09:06→13:12)
[2019-04-09] MEDS: CHOLECALCIFEROL 1,000 UNITS TAB PO SCH (09:07)
[2019-04-09] MEDS: CLOPIDOGREL BISULFATE 75 MG TAB PO SCH (09:07)
[2019-04-09] MEDS: SEVELAMER HCL 800 MG TABLET PO SCH ×3 (09:08→18:17)
[2019-04-09] MEDS: POLYETHYLENE (MIRALAX) 17 GM PACK PO SCH (09:08)
[2019-04-09] MEDS: METOPROLOL TARTRATE 25 MG TAB PO SCH ×2 (09:09→21:34)
[2019-04-09] MEDS: ASPIRIN 81 MG ECTAB PO SCH (09:09)
[2019-04-09] MEDS: CALCIUM CARBONATE 500 MG CHEWABLE TAB PO SCH ×3 (09:09→18:17)
[2019-04-09] MEDS: INSULIN ASPART 100 UNITS/ML 3 ML PEN SC SCH ×4 (09:14→21:37)
--- NOTE | 2019-04-09 10:02 | Pharmacy Report ---
Pharmacy Glycemic Short Note 2 - Date of Service April 09, 2019 - Glycemic Short BSG Results (Last 24 hours): 04/08/19 04/08/19 04/08/19 12:11 17:37 21:19 Glucose POC Glucose 195 H 117 H 106 H 04/09/19 04/09/19 05:50 08:41 Glucose 118 H POC Glucose 131 H OUTPATIENT REGIMEN: * Lantus 20 units SQ BID * Humalog SC ACHS, units ASSESSMENT: * 58 yo F with osteomyelitis/gangrene on imipenem. * Patient received HD yesterday + 2 units of pRBC * Pt has been receiving 25-30 units of insulin per day with adequate control. * Basal insulin dosing averages about 13 units/day. * Pt only received 5 units of basal insulin yesterday per scale. Rebound hyperglycemia likely to occur today. Will increase AM dose slightly for this morning to make up half of dose omitted for "lower" BSG last evening. Then resume BID scaling as before. Will remove the "0" dose option from basal insulin dosing since holding basal will result in rebound hyperglycemia. * Bolus insulin * Post-prandial BSGs in goal range. No changes needed to CF/CR PLAN FOR INPATIENT GLYCEMIC CONTROL: * Basal insulin: Lantus 10 units SC x1 this AM then ongoing BID based on BSG * 3 units for BSG less than 110 mg/dL * 5 units for BSG 110-140 mg/dL * 8 units for BSG greater than 140 mg/dL * Bolus insulin - no changes * NovoLog per scale ACHS or Q6hrs while NPO * Goal Range: Low 110 mg/dL - High 140 mg/dL * Correction Factor: 20 mg/dL/unit * Nutritional / Prandial insulin per carb ratio of 1 unit per 6 grams CHO consumed
--- NOTE | 2019-04-09 10:40 | Nephrology Progress Note ---
Date of Service April 09, 2019 Assessment & Plan (1) End-stage renal disease on hemodialysis: -- Volume status and electrolyte balance are acceptable. No acute indication for HD today. Will schedule next treatment for the am -- AVF with very weak thrill and poor bruit, remains significantly ecchymotic and tender. Patient is unable to hold arm still due to discomfort from recent surgery. Will continue to rest AVF -- RIJ permcath placed 04/02/19 -- Renal diet (2) Cellulitis of right hand: -- Culture + corynebacterium, actinomyces and anaerobes -- Patient remains on Imipenem -- ID following -- s/p I&D and index finger amputation 03/31/19 -- R middle finger ray amputation 04/06/19 (3) Anemia: -- Tsat 65% and ferritin >1000 -- Hgb has improved to 8.8 -- Will provide SHANI w/ HD tomorrow (4) Secondary hyperparathyroidism of renal origin: Subjective Ms. Ardon was seen & examined in her hospital room this morning. balance staff staker had just changed her surgical dressing. Patient still has significant discomfort. Ms. Ardon was dialyzed yesterday for 2 L UF. Her dialysis catheter was positional and Ms. Ardon had to lay on her side throughout most of the treatment. Review of Systems Respiratory: no cough and no dyspnea Cardiovascular: no chest pain and no edema Physical Exam Neck: trachea midline, no thyromegaly Respiratory: normal respiratory effort, lungs clear to auscultation Cardiovascular: RRR, no murmur, no edema Extremities: + AV fistula (palpable thrill. Soft bruit. Large area of surrounding ecchymosis) Gastrointestinal (Abdomen): normal bowel sounds, soft, nontender, no hepatosplenomegaly Results & Data Vital Signs (Past 12 Hours) Vital Signs Temp Pulse Pulse Resp BP Pulse Ox 04/09/19 07:33 37.2 C 83 16 108/66 97 04/08/19 23:00 37.2 C 90 18 115/57 L 97 Laboratory Results Laboratory Tests 04/09/19 04/09/19 05:50 05:50 WBC 8.04 Hgb 8.8 L Hct 27.5 L Plt Count 298 Sodium 135 L Potassium 4.6 Chloride 105 Carbon Dioxide 23 BUN 24 H Creatinine 5.36 H* D Glucose 118 H
--- NOTE | 2019-04-09 15:32 | Hospitalist Progress Note ---
Date of Service April 09, 2019 Assessment & Plan (1) Ischemic finger: On 03/27, her right index finger became cool, mottled, and painful. Discussed this with Drs. Izaguirre, Derrick, and Isaiah, as well as a vascular surgeon from [place] in regards to any salvage therapy for the index finger. She was put on aspirin and Plavix. Heparin gtt was not done due to her INR being near therapeutic. - CTA right hand on 03/28 showed: 1) flow in the radial, ulnar, superficial palmar, and deep palmar arteries 2) no flow within the digital artery along the radial aspect of the second finger 3) thrombosis of the proximal digital artery along the ulnar aspect of the second finger 4) moderate stenosis with near complete to complete occlusion involving the digital artery along the ulnar aspect of the third finger - amputation as below (2) Osteomyelitis of hand, right, acute: - Diabetic hand infection. CT hand on 03/25 showed osteomyelitis. - Seen by vascular, ortho, and ID - Appreciate recs - Had extensive washout and debridement on 03/[address] Izaguirre - multiple abscesses, partial amputations of the second metacarpal head and second proximal phalanx - Wound culture with actinomyces, corynebacterium and probable anaerobic gram negative bacilli - wound does not appear to be healing well, patient removing dressing and chewing on site. - Had surgery on 03/31 amputated right index finger. - Continue imipenem/cilastatin - s/p 04/[address] Campos, wound vac in place, wound vac to be exchanged today. - WC nurse consulted - Discussed with surgery - will need to remain in the hospital over the weekend (3) Hypothyroidism: TSH was 0.2 on 03/26 with normal FT4. No signs/symptoms of hypo- /hyperthyroidism. - Continue home Synthroid 250 mcg - Will not change dose in setting of acute illness. (4) Hyperkalemia: resolved (5) Atrial fibrillation: History of atrial fibrillation and CVA. Chads-Vasc of 6, making her high- risk - Rate-controlled with metoprolol 25mg PO BID - On presentation, her INR was 8.3 for which she received vitamin K 5mg IV x 1. - Can restart Coumadin per surgery - patient has been mostly therapeutic without having received any Coumadin since 03/27. This is likely nutritional. Liver US without any sign of liver disease. Subtherapeutic today so will start Coumadin 3 mg which is her home dose (6) Diabetes: A1c of 9.7% on 03/25. - Continue basal bolus insulin with sliding scale coverage - Glycemic pharmacist consult (7) End-stage renal disease on hemodialysis: On admission - K+ up to 6.8. - S/p HD on 03/25 - Continue Bumex & sevelamer - On 03/27, K+ was back up to 6.3; possibly from tissue breakdown. - HD failed on 03/27 in the AM; U/s showed patent AV fistula. AVF infiltrated a second time in the evening. - On 03/27 at ~10pm, she had an urgent femoral HD line placed by pulpily/agusto - Underwent HD overnight of 03/27-03/28 - Appreciate nephrology recs -Potassium remains normal. (8) Anemia: Anemia of chronic disease and CKD. - Baseline hgb ~11; on 03/25 was 10.0. -2 units PRBCs during dialysis 04/08 (9) Restless leg syndrome: No current symptoms. - Continue ropinerole QHS (10) Delirium: Increased seroquel from 12.5 to 25 mg HS, appears to have helped over the night (11) DVT prophylaxis: coumadin Subjective Ms. Ardon is drowsy but arousable. Her pain is better but she reports medications are making her sleepy. She otherwise has no complaints Review of Systems Review of Systems: All systems reviewed & are unremarkable except as noted in HPI & below Physical Exam Physical Exam: General: no distress Eyes: normal inspection, PERLL Respiratory: chest non tender, clear to auscultation, normal breath sounds, no respiratory distress, no accessory muscle use Cardiac: regular rate and rhythm, no rub or gallop, no murmur, no edema, no jvd GI/: active bowel sounds, no abd pain or tenderness, soft, non distended Extremities: normal range of motion, normal strength, non tender Neuro/Psych: alert and oriented x 3, normal mood and affect Skin: normal color, dry, wound vac in place, right fingers warm and pink, edematous Results & Data Vital Signs (Past 12 Hours) Vital Signs Temp Pulse Pulse Resp BP BP Pulse Ox 04/09/19 15:21 37.1 C 78 18 96/66 L 100 04/09/19 07:33 37.2 C 83 16 108/66 97
[2019-04-09] MEDS: WARFARIN SOD 3 MG TAB PO SCH (15:42)
--- NOTE | 2019-04-09 19:25 | Infectious Disease Progress Nt ---
Date of Service April 09, 2019 Assessment & Plan (1) Cellulitis of right hand: 58-year-old female with end-stage renal disease on dialysis deep right hand infection status post further debridement and finger amputation. Cultures growing actinomyces and anaerobic gram-negative bacilli. Most recent culture with coag negative staph. Continue current antibiotics. Will follow. Subjective Patient seen in follow-up for right hand infection. Continues to complain of significant pain. No fever. Remains afebrile. Review of Systems Review of Systems: All systems reviewed & are unremarkable except as noted in HPI & below Physical Exam Constitutional: WD/WN, vitals as above + acute distress and + ill appearing Eyes: PERRL, conjunctivae normal, anicteric sclerae ENMT: external ear and nose normal, oropharynx normal Neck: trachea midline, no thyromegaly neck nontender Respiratory: normal respiratory effort, lungs clear to auscultation normal percussion; no respiratory distress and does not use accessory muscles Cardiovascular: Rate/Rhythm: regular rate and regular rhythm Heart Sounds: normal S1 and normal S2; no gallop, no murmur and no cardiac rub Vessels: normal peripheral pulses; no JVD Gastrointestinal (Abdomen): normal bowel sounds, soft, nontender, no hepatosplenomegaly Musculoskeletal: no cyanosis or clubbing, extremities motor strength 5/5 Spine: thoracic spine normal to inspection and lumbar spine normal to inspection; no cervical spinal tenderness Skin: no rashes Neurologic: patellar DTR's 2+ bilat, sensation intact moves all extremities and awake; no focal motor deficits Motor/Sensory: no sensory deficit Psychiatric: A+Ox3, euthymic affect Orientation: cooperative Lymphatic: no cervical or axillary lymphadenopathy no inguinal lymphadenopathy Results & Data Vital Signs (Past 12 Hours) Vital Signs Temp Pulse Pulse Resp BP BP Pulse Ox 04/09/19 15:21 37.1 C 78 18 96/66 L 100 04/09/19 07:33 37.2 C 83 16 108/66 97 Laboratory Results Short CBC 04/09/19 Range/Units 05:50 WBC 8.04 (4.8-10.8) K/uL Hgb 8.8 L (12.0-16.0) g/dL Hct 27.5 L (37-47) % Plt Count 298 (130-400) K/uL BMP 04/09/19 05:50 Sodium 135 L Potassium 4.6 Chloride 105 Carbon Dioxide 23 BUN 24 H Creatinine 5.36 H* D Glucose 118 H Calcium 8.1 L Diagnostic Findings Microbiology 04/06/19 Unknown Finger Gram Stain - Final 04/06/19 Unknown Finger Aerobic and Anaerobic Culture - Preliminary Coag negative Staphylococcus Dana albicans 03/31/19 11:05 Blood Blood Culture - Final No growth 03/31/19 11:03 Blood Blood Culture - Final No growth 03/26/19 17:44 Hand,Right Gram Stain - Final 03/26/19 17:44 Hand,Right Aerobic and Anaerobic Culture - Final Corynebacterium species Actinomyces turicensis Probable juli gram neg bacilli 03/26/19 17:44 Hand,Right Gram Stain - Final 03/26/19 17:44 Hand,Right Aerobic and Anaerobic Culture - Final No growth 03/24/19 23:36 Blood Blood Culture - Final No growth 03/24/19 21:42 Blood Blood Culture - Final No growth
[2019-04-09] MEDS: SERTRALINE HCL 50 MG TABLET PO SCH (21:34)
[2019-04-09] MEDS: QUETIAPINE FUMARATE 25 MG TABLET PO SCH (21:34)
[2019-04-09] MEDS: ATORVASTATIN 20 MG TAB PO SCH (21:34)
[2019-04-09] MEDS: PRAMIPEXOLE DIHYDROCHLO 0.25 MG TAB PO SCH (21:34)
[2019-04-09] MEDS: INSULIN GLARGINE SOLOSTAR 100 UNITS/ML 3 ML PEN SC SCH (21:38)
[2019-04-10] MEDS: HYDROCODONE/ACETAMOPHEN 5/325MG TAB PO PRN ×3 (02:52→20:19)
[2019-04-10] MEDS: IMIPENEM/CILASTATIN SODIUM 200 MG in DEXTROSE 5% 100 ML IV SCH ×4 (02:54→21:46)
[2019-04-10] MEDS: HYDROmorphone INJ 1 MG/ML SYRINGE IV PRN ×2 (06:11→11:48)
[2019-04-10] MEDS: LEVOTHYROXINE SODIUM 50 MCG TABLET PO SCH (06:12)
[2019-04-10] MEDS: LEVOTHYROXINE SODIUM 200 MCG TABLET PO SCH (06:12)
[2019-04-10 06:27] LABS: Hematocrit (blood only) 28.2 % (37-47); Hemoglobin 8.8 g/dL (12.0-16.0); Mean Corpuscular Hgb Conc 31.2 g/dL (32-36); Mean Corpuscular Volume 98.6 fL (80-100); Mean Platelet Volume 9.9 fL (7.4-10.4); Platelet Count 313 K/uL (130-400); RDW Coefficient of Variation 17.3 % (11.5-14.5); RDW Standard Deviation 61.4 fL (36.4-46.3); Red Blood Count 2.86 M/uL (4.2-5.4); White Blood Count 6.84 K/uL (4.8-10.8)
[2019-04-10 06:31] LABS: INR 1.5 (0.9-1.1); Prothrombin Time 15.1 Seconds (9.0-12.0)
[2019-04-10] MEDS ORDERED: SODIUM CHLORIDE 0.9% 1000ML 1,000 ML IV PRN (07:00)
[2019-04-10] MEDS ORDERED: EPOETIN ALFA 10,000 UNITS/ML VIAL IV SCH (07:00)
[2019-04-10 07:06] LABS: BUN Creatinine Ratio 4.8 (10-20); Calcium 8.5 mg/dl (8.5-10.1); Creatinine Clr Calc Pharmacy 10.9 ml/min; Est GFR (African American) 7.1; Est GFR (Non-African American) 6.1; Potassium 4.9 mmol/L (3.5-5.1)
[2019-04-10] MEDS: SEVELAMER HCL 800 MG TABLET PO SCH ×3 (08:34→17:50)
[2019-04-10] MEDS: POLYETHYLENE (MIRALAX) 17 GM PACK PO SCH (08:35)
[2019-04-10] MEDS: CALCIUM CARBONATE 500 MG CHEWABLE TAB PO SCH ×3 (08:35→17:50)
[2019-04-10] MEDS: INSULIN ASPART 100 UNITS/ML 3 ML PEN SC SCH ×4 (08:45→21:31)
[2019-04-10] MEDS: INSULIN GLARGINE SOLOSTAR 100 UNITS/ML 3 ML PEN SC SCH ×2 (08:47→21:32)
--- NOTE | 2019-04-10 09:15 | Pharmacy Report ---
Pharmacy Glycemic Short Note 2 - Date of Service April 10, 2019 - Glycemic Short BSG Results (Last 24 hours): 04/09/19 04/09/19 04/09/19 12:09 16:55 17:25 Glucose POC Glucose 171 H 71 80 04/09/19 04/09/19 04/10/19 17:38 20:51 06:09 Glucose 104 H POC Glucose 94 130 H 04/10/19 08:04 Glucose POC Glucose 104 H OUTPATIENT REGIMEN: * Lantus 20 units SQ BID * Humalog SC ACHS, units ASSESSMENT: * Ms. Powerss BSGs over the previous 24 hrs have been well controlled: 108-63-022-104mg/dL. She required 33 units of insulin, roughly 50/50 split bt basal/bolus. Primaxin continues. HD is ordered for today, historically she requires less insulin on HD days. PLAN FOR INPATIENT GLYCEMIC CONTROL: * Basal insulin: nil changes * 3 units for BSG less than 110 mg/dL * 5 units for BSG 110-140 mg/dL * 8 units for BSG greater than 140 mg/dL * Bolus insulin - nil changes * NovoLog per scale ACHS or Q6hrs while NPO * Goal Range: Low 110 mg/dL - High 140 mg/dL * Correction Factor: 20 mg/dL/unit * Nutritional / Prandial insulin per carb ratio of 1 unit per 6 grams CHO consumed
--- NOTE | 2019-04-10 11:20 | Nephrology Progress Note ---
Date of Service April 10, 2019 Assessment & Plan (1) End-stage renal disease on hemodialysis: -- HD today. Orders have been entered into the EMR and HD RN notified -- AVF with very weak thrill and poor bruit, remains significantly ecchymotic and tender. Patient is unable to hold arm still due to discomfort from recent surgery. Will continue to rest AVF -- RIJ permcath placed 04/02/19 -- Renal diet (2) Cellulitis of right hand: -- Culture + corynebacterium, actinomyces and anaerobes -- Patient remains on Imipenem -- ID following -- s/p I&D and index finger amputation 03/31/19 -- R middle finger ray amputation 04/06/19 (3) Anemia: -- Tsat 65% and ferritin >1000 -- Hgb has improved to 8.8 -- Will provide SHANI w/ HD today (4) Secondary hyperparathyroidism of renal origin: Subjective Ms. Ardon was seen & examined in her hospital room this morning. She still has significant discomfort from her recent hand surgery. Review of Systems Constitutional: no fever Respiratory: no dyspnea Cardiovascular: no chest pain Gastrointestinal: no abdominal pain, no vomiting and no diarrhea/loose stools Physical Exam Neck: trachea midline, no thyromegaly Respiratory: normal respiratory effort, lungs clear to auscultation Cardiovascular: RRR, no murmur, no edema Extremities: + AV fistula (palpable thrill. Soft bruit. Large area of surrounding ecchymosis) Gastrointestinal (Abdomen): normal bowel sounds, soft, nontender, no hepatosplenomegaly Results & Data Vital Signs (Past 12 Hours) Vital Signs Temp Pulse Pulse Pulse Pulse Resp BP 04/10/19 10:20 75 93/36 L 04/10/19 10:00 76 78/26 L 04/10/19 09:40 73 92/35 L 04/10/19 09:20 68 99/31 L 04/10/19 09:01 37 C 70 04/10/19 06:56 36.9 C 73 18 04/09/19 23:23 37.0 C 87 16 BP BP Pulse Ox 04/10/19 10:20 04/10/19 10:00 04/10/19 09:40 04/10/19 09:20 04/10/19 09:01 04/10/19 06:56 88/55 L 96 04/09/19 23:23 90/61 L 98 Laboratory Results Laboratory Tests 04/10/19 04/10/19 06:09 06:09 WBC 6.84 Hgb 8.8 L Hct 28.2 L Plt Count 313 Sodium 133 L Potassium 4.9 Chloride 103 Carbon Dioxide 23 BUN 32 H Creatinine 6.74 H* D Glucose 104 H
--- NOTE | 2019-04-10 11:44 | Progress Note ---
DATE: 04/10/2019 SUBJECTIVE: Kortney seen at bedside today. She has appropriate amount of pain in the right hand. OBJECTIVE: Right hand exam shows a well fitted VAC. She has no extending erythema proximal to the VAC. Prior pictures did show skin necrosis both proximal and distal to the open wound. ASSESSMENT: Status post irrigation and debridement and application of VAC with ray amputation index and middle finger. PLAN: At this point, I will continue VAC treatment. We will allow her wound to demarcate more. It is likely she will need some additional surgical debridement down the road, but I would prefer to hold off until final demarcation is complete. We will continue to follow intermittently.
[2019-04-10] MEDS: BUMETANIDE 1 MG TAB PO SCH (13:51)
[2019-04-10] MEDS: ASPIRIN 81 MG ECTAB PO SCH (13:52)
[2019-04-10] MEDS: METOPROLOL TARTRATE 25 MG TAB PO SCH ×2 (13:52→21:43)
[2019-04-10] MEDS: CLOPIDOGREL BISULFATE 75 MG TAB PO SCH (13:52)
[2019-04-10] MEDS: CHOLECALCIFEROL 1,000 UNITS TAB PO SCH (13:53)
--- NOTE | 2019-04-10 13:58 | Hospitalist Progress Note ---
Date of Service April 10, 2019 Assessment & Plan (1) Ischemic finger: On 03/27, her right index finger became cool, mottled, and painful. Discussed this with Drs. Izaguirre, Derrick, and Isaiah, as well as a vascular surgeon from [place] in regards to any salvage therapy for the index finger. She was put on aspirin and Plavix. Heparin gtt was not done due to her INR being near therapeutic. - CTA right hand on 03/28 showed: 1) flow in the radial, ulnar, superficial palmar, and deep palmar arteries 2) no flow within the digital artery along the radial aspect of the second finger 3) thrombosis of the proximal digital artery along the ulnar aspect of the second finger 4) moderate stenosis with near complete to complete occlusion involving the digital artery along the ulnar aspect of the third finger - amputation as below (2) Osteomyelitis of hand, right, acute: - Diabetic hand infection. CT hand on 03/25 showed osteomyelitis. - Seen by vascular, ortho, and ID - Appreciate recs - Had extensive washout and debridement on 03/[address] Izaguirre - multiple abscesses, partial amputations of the second metacarpal head and second proximal phalanx - Wound culture with actinomyces, corynebacterium and probable anaerobic gram negative bacilli - wound does not appear to be healing well, patient removing dressing and chewing on site. - Had surgery on 03/31 amputated right index finger. - Continue imipenem/cilastatin - s/p 04/[address] Campos, wound vac in place, wound vac to be exchanged today. - WC nurse consulted - Discussed with surgery - will need to remain in the hospital over the weekend, per their note, may need further debridement down the road. (3) Hypothyroidism: TSH was 0.2 on 03/26 with normal FT4. No signs/symptoms of hypo- /hyperthyroidism. - Continue home Synthroid 250 mcg - Will not change dose in setting of acute illness. (4) Hyperkalemia: resolved (5) Atrial fibrillation: History of atrial fibrillation and CVA. Chads-Vasc of 6, making her high- risk - Rate-controlled with metoprolol 25mg PO BID - On presentation, her INR was 8.3 for which she received vitamin K 5mg IV x 1. - Restarted Coumadin per surgery - patient has been mostly therapeutic without having received any Coumadin since 03/27. This is likely nutritional. Liver US without any sign of liver disease. Will continue with 3 mg initiated 04/09 (6) Diabetes: A1c of 9.7% on 03/25. - Continue basal bolus insulin with sliding scale coverage - Glycemic pharmacist consult (7) End-stage renal disease on hemodialysis: On admission - K+ up to 6.8. - S/p HD on 03/25 - Continue Bumex & sevelamer - On 03/27, K+ was back up to 6.3; possibly from tissue breakdown. - HD failed on 03/27 in the AM; U/s showed patent AV fistula. AVF infiltrated a second time in the evening. - On 03/27 at ~10pm, she had an urgent femoral HD line placed by pulpily/cc - Underwent HD overnight of 03/27-03/28 - Appreciate nephrology recs -Potassium remains normal. (8) Anemia: Anemia of chronic disease and CKD. - Baseline hgb ~11; -2 units PRBCs during dialysis 04/08 (9) Restless leg syndrome: No current symptoms. - Continue ropinerole QHS (10) Delirium: Increased seroquel from 12.5 to 25 mg HS, appears to have helped over the last few night (11) History of CVA (cerebrovascular accident): Ms. Ardon complains of feeling like she had a stroke similar to her previous. She cannot comply with all commands but I do not appreciate anything focal other than her left arm weakness/hand contracture which is chronic. Additionally, until yesterday she was therapeutic since 03/28 with her INR making CVA less likely within the last week. At this point she would not be a TPA candidate and imaging her would not change her treatment so will hold off. I will increase her atorvastatin to 40 mg. She is already on aspirin (12) DVT prophylaxis: coumadin Subjective Ms. Ardon's pain is better controlled. "I think I had another stroke, I can't feed myself". I did ask nursing and they did not have any report of recent change in functional ability. Patient has left sided weakness from her original stroke some years ago. She has needed to be fed since at least 03/31 looking back through the record. Review of Systems Review of Systems: All systems reviewed & are unremarkable except as noted in HPI & below Physical Exam Physical Exam: General: no distress Eyes: normal inspection, PERLL Respiratory: chest non tender, clear to auscultation, normal breath sounds, no respiratory distress, no accessory muscle use Cardiac: regular rate and rhythm, no rub or gallop, no murmur, no edema, no jvd GI/: active bowel sounds, no abd pain or tenderness, soft, non distended Extremities: normal range of motion, normal strength, non tender Neuro/Psych: alert and oriented x 3, normal mood and affect Skin: normal color, dry Results & Data Vital Signs (Past 12 Hours) Vital Signs Temp Pulse Pulse Pulse Resp BP BP 04/10/19 12:20 81 85/33 L 04/10/19 12:00 79 75/24 L 04/10/19 11:40 83 99/27 L 04/10/19 11:20 91 H 98/26 L 04/10/19 11:00 82 99/38 L 04/10/19 10:40 79 89/28 L 04/10/19 10:20 75 93/36 L 04/10/19 10:00 76 78/26 L 04/10/19 09:40 73 92/35 L 04/10/19 09:20 68 99/31 L 04/10/19 09:01 37 C 70 04/10/19 06:56 36.9 C 73 18 88/55 L Pulse Ox 04/10/19 12:20 04/10/19 12:00 04/10/19 11:40 04/10/19 11:20 04/10/19 11:00 04/10/19 10:40 04/10/19 10:20 04/10/19 10:00 04/10/19 09:40 04/10/19 09:20 04/10/19 09:01 04/10/19 06:56 96
[2019-04-10] MEDS: WARFARIN SOD 3 MG TAB PO SCH (17:50)
[2019-04-10] MEDS: QUETIAPINE FUMARATE 25 MG TABLET PO SCH (20:00)
[2019-04-10] MEDS ORDERED: LORazepam 1 MG/2 ML VIAL IV STA (21:21)
[2019-04-10] MEDS ORDERED: HALOPERIDOL LACTATE 5 MG/ML 1 ML VIAL IM STA (21:22)
[2019-04-10] MEDS: SERTRALINE HCL 50 MG TABLET PO SCH (21:45)
[2019-04-10] MEDS: ATORVASTATIN 40 MG TAB PO SCH (21:45)
[2019-04-10] MEDS: PRAMIPEXOLE DIHYDROCHLO 0.25 MG TAB PO SCH (21:58)
[2019-04-11] MEDS: HYDROCODONE/ACETAMOPHEN 5/325MG TAB PO PRN ×2 (00:12→09:21)
[2019-04-11] MEDS: IMIPENEM/CILASTATIN SODIUM 200 MG in DEXTROSE 5% 100 ML IV SCH ×4 (03:52→22:18)
[2019-04-11 07:15] LABS: Hematocrit (blood only) 28.7 % (37-47); Hemoglobin 9.2 g/dL (12.0-16.0); Mean Corpuscular Hgb Conc 32.1 g/dL (32-36); Mean Corpuscular Volume 97.6 fL (80-100); Mean Platelet Volume 9.8 fL (7.4-10.4); Platelet Count 268 K/uL (130-400); RDW Coefficient of Variation 16.8 % (11.5-14.5); RDW Standard Deviation 58.9 fL (36.4-46.3); Red Blood Count 2.94 M/uL (4.2-5.4); White Blood Count 5.36 K/uL (4.8-10.8)
[2019-04-11 07:25] LABS: INR 1.7 (0.9-1.1); Prothrombin Time 17.2 Seconds (9.0-12.0)
[2019-04-11 07:40] LABS: BUN Creatinine Ratio 4.3 (10-20); Creatinine Clr Calc Pharmacy 16.3 ml/min; Est GFR (African American) 11.6
[2019-04-11] MEDS: LEVOTHYROXINE SODIUM 50 MCG TABLET PO SCH (08:37)
[2019-04-11] MEDS: SEVELAMER HCL 800 MG TABLET PO SCH ×3 (08:37→17:43)
[2019-04-11] MEDS: CLOPIDOGREL BISULFATE 75 MG TAB PO SCH (08:37)
[2019-04-11] MEDS: LEVOTHYROXINE SODIUM 200 MCG TABLET PO SCH (08:37)
[2019-04-11] MEDS: CHOLECALCIFEROL 1,000 UNITS TAB PO SCH (08:38)
[2019-04-11] MEDS: BUMETANIDE 1 MG TAB PO SCH (08:38)
[2019-04-11] MEDS: ASPIRIN 81 MG ECTAB PO SCH (08:38)
[2019-04-11] MEDS: METOPROLOL TARTRATE 25 MG TAB PO SCH ×2 (08:39→22:07)
[2019-04-11] MEDS: POLYETHYLENE (MIRALAX) 17 GM PACK PO SCH (08:39)
[2019-04-11] MEDS: CALCIUM CARBONATE 500 MG CHEWABLE TAB PO SCH ×3 (08:39→17:42)
[2019-04-11] MEDS: INSULIN ASPART 100 UNITS/ML 3 ML PEN SC SCH ×4 (09:10→22:13)
[2019-04-11] MEDS: INSULIN GLARGINE SOLOSTAR 100 UNITS/ML 3 ML PEN SC SCH ×2 (09:10→22:11)
--- NOTE | 2019-04-11 10:49 | Nephrology Progress Note ---
Date of Service April 11, 2019 Assessment & Plan (1) End-stage renal disease on hemodialysis: -- Volume status and electrolyte balance are acceptable. No acute indication for HD today -- AVF with very weak thrill and poor bruit, remains significantly ecchymotic and tender. Patient is unable to hold arm still due to discomfort from recent surgery. Will continue to rest AVF -- RIJ permcath placed 04/02/19 -- Renal diet (2) Cellulitis of right hand: -- Culture + corynebacterium, actinomyces and anaerobes -- Patient remains on Imipenem -- ID following -- s/p I&D and index finger amputation 03/31/19 -- R middle finger ray amputation 04/06/19 (3) Anemia: -- Tsat 65% and ferritin >1000 -- Hgb has improved to 8.8 -- Will continue SHANI w/ HD treatments (4) Secondary hyperparathyroidism of renal origin: Subjective Ms. Ardon was seen & examined in her hospital room. She was visiting w/ her daughter and grandson. Ms. Ardon has persistent discomfort related to her R hand surgery. She denies fever, angina or dyspnea. Ms. Ardon was dialyzed yesterday without complication. We are continuing to rest her AVF since she is unable to hold her arm still. Her IJ THC functioned well. Review of Systems Constitutional: no fever Respiratory: no dyspnea Cardiovascular: no chest pain and no edema Gastrointestinal: no abdominal pain, no vomiting and no diarrhea/loose stools Physical Exam Neck: trachea midline, no thyromegaly Respiratory: normal respiratory effort, lungs clear to auscultation Cardiovascular: RRR, no murmur, no edema Extremities: + AV fistula (palpable thrill. Soft bruit. Large area of surrounding ecchymosis) Gastrointestinal (Abdomen): normal bowel sounds, soft, nontender, no hepatosplenomegaly Results & Data Vital Signs (Past 12 Hours) Vital Signs Temp Pulse Resp BP Pulse Ox 04/11/19 06:49 36.9 C 79 18 100/60 96 04/10/19 23:10 37.5 C 82 14 119/70 97 Laboratory Results Laboratory Tests 04/11/19 04/11/19 06:58 06:58 WBC 5.36 Hgb 9.2 L Hct 28.7 L Plt Count 268 Sodium 138 Potassium 4.0 D Chloride 106 Carbon Dioxide 27 BUN 19 H Creatinine 4.47 H D Glucose 104 H
--- NOTE | 2019-04-11 11:33 | Hospitalist Progress Note ---
Date of Service April 11, 2019 Assessment & Plan (1) Ischemic finger: On 03/27, her right index finger became cool, mottled, and painful. Discussed this with Drs. Izaguirre, Derrick, and Isaiah, as well as a vascular surgeon from [place] in regards to any salvage therapy for the index finger. She was put on aspirin and Plavix. Heparin gtt was not done due to her INR being near therapeutic. - CTA right hand on 03/28 showed: 1) flow in the radial, ulnar, superficial palmar, and deep palmar arteries 2) no flow within the digital artery along the radial aspect of the second finger 3) thrombosis of the proximal digital artery along the ulnar aspect of the second finger 4) moderate stenosis with near complete to complete occlusion involving the digital artery along the ulnar aspect of the third finger - amputation as below (2) Osteomyelitis of hand, right, acute: - Diabetic hand infection. CT hand on 03/25 showed osteomyelitis. - Seen by vascular, ortho, and ID - Appreciate recs - Had extensive washout and debridement on 03/[address] Izaguirre - multiple abscesses, partial amputations of the second metacarpal head and second proximal phalanx - Wound culture with actinomyces, corynebacterium and ej - per ID no need to treat ej - Had surgery on 03/31 amputated right index finger. - Continue imipenem/cilastatin - s/p 04/[address] Campos, wound vac in place, wound vac to be exchanged today. - WC nurse consulted - Discussed with surgery - will need to remain in the hospital over the weekend, per their note, may need further debridement down the road. (3) Hypothyroidism: TSH was 0.2 on 03/26 with normal FT4. No signs/symptoms of hypo- /hyperthyroidism. - Continue home Synthroid 250 mcg - Will not change dose in setting of acute illness. (4) Hyperkalemia: resolved (5) Atrial fibrillation: History of atrial fibrillation and CVA. Chads-Vasc of 6, making her high-risk - Rate-controlled with metoprolol 25mg PO BID - On presentation, her INR was 8.3 for which she received vitamin K 5mg IV x 1. - Restarted Coumadin per surgery - patient has been mostly therapeutic without having received any Coumadin since 03/27. This is likely nutritional. Liver US without any sign of liver disease. Will continue with 3 mg initiated 04/09 (6) Diabetes: A1c of 9.7% on 03/25. - Continue basal bolus insulin with sliding scale coverage - Glycemic pharmacist consult (7) End-stage renal disease on hemodialysis: On admission - K+ up to 6.8. - S/p HD on 03/25 - Continue Bumex & sevelamer - On 03/27, K+ was back up to 6.3; possibly from tissue breakdown. - HD failed on 03/27 in the AM; U/s showed patent AV fistula. AVF infiltrated a second time in the evening. - On 03/27 at ~10pm, she had an urgent femoral HD line placed by pulm/cc - Underwent HD overnight of 03/27-03/28 - Appreciate nephrology recs -Potassium remains normal. (8) Anemia: Anemia of chronic disease and CKD. - Baseline hgb ~11; -2 units PRBCs during dialysis 04/08 (9) Restless leg syndrome: No current symptoms. - Continue ropinerole QHS (10) Delirium: Increased seroquel from 12.5 to 25 mg HS, appears to have helped over the last few night (11) History of CVA (cerebrovascular accident): Ms. Ardon complains of feeling like she had a stroke similar to her previous. She cannot comply with all commands but I do not appreciate anything focal other than her left arm weakness/hand contracture which is chronic. Additionally, until yesterday she was therapeutic since 03/28 with her INR making CVA less likely within the last week. At this point she would not be a TPA candidate and imaging her would not change her treatment so will hold off. I will increase her atorvastatin to 40 mg. She is already on aspirin (12) DVT prophylaxis: coumadin Subjective Ms. Ardon is accompanied by her family at bedside. She is up to a chair. She continues to have significant pain in her right hand. Review of Systems Review of Systems: All systems reviewed & are unremarkable except as noted in HPI & below Physical Exam Physical Exam: General: no distress Eyes: normal inspection, PERLL Respiratory: chest non tender, clear to auscultation, normal breath sounds, no respiratory distress, no accessory muscle use Cardiac: regular rate and rhythm, no rub or gallop, no murmur, no edema, no jvd GI/: active bowel sounds, no abd pain or tenderness, soft, non distended Extremities: normal range of motion, left side weakness baseline d/t previous CVA Neuro/Psych: alert and oriented x 3, normal mood and affect Skin: normal color, dry Results & Data Vital Signs (Past 12 Hours) Vital Signs Temp Pulse Resp BP Pulse Ox 04/11/19 06:49 36.9 C 79 18 100/60 96
--- NOTE | 2019-04-11 13:42 | Psychiatric Progress Note ---
Date of Service April 11, 2019 Impression / Recommendations Impression Continues to demonstrate s/o delirium and multiple likely medical etiologies. Her cognitive baseline at home is not known to me today. Unfortunately pain is triggering emotional duress and, when disoriented, precipitating unintentional self injurious behaviors such as biting at affected hand and agitation. Pain control is a bind as necessary but narcs may certainly contribute to prolonged delirium. As she did initially respond positively to seroquel, will add 25mg dose at 18:00 (in addition to HS dose) and will also start 25mg q8h prn for agitation associated with her delirium (hold for sedation.) Risk Factors Assessment Do You Have Access To A Gun?: No Interval History Chief Complaint "It hurts". Review of Systems Notes R hand pain, anxiety, and confusion reported Subjective Subjective Patient was seen for f/u of delirium in setting of R finger amputation, osteomyelitis, and stage renal disease, and h/o CVA. Pt seen for f/u today as she required haldol 5mg IM and ativan 1mg IV last evening 2/2 agitation associated with pain and confusion. She responded favorably per nursing staff. Orientation and alertness continues to wax and wane. 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 She states "sometimes" when queried re visual hallucinations but cannot elaborate. She is preoccupied w/ somatic complaints. She describes pain at surgical site as sharp. w Procedures Performed Operation Date: 03/26/19 13:40 Actual Procedures p Incision and Drainage abscess dorsal right hand x2 separate locations; Debridement 2nd extensor; tenonectomy of 2nd and 3rd extensor; partial fasciectomy dorsal hand(Right) - Henrik Izaguirre DO s Amputation 2nd metacarpal head and 2nd proximal phalanx; (Right) - Henrik Izaguirre DO Operation Date: 03/31/19 07:00 Actual Procedures p Right Index finger amputation, application of VAC sponge(Right) - Juvencio Colon MD Operation Date: 04/02/19 12:50 Actual Procedures p Insertion of Perm Catheter Right Jugular Approach, Ultrasound Localization of Right Jugular Vein, Superior Vena Cavagram, Fluoroscopy for Positioning, Moderate Sedation [id number](Right) - Dayton Meza MD Operation Date: 04/06/19 07:00 Actual Procedures p Right Hand Incision and Drainage Repeat;(Right) - Juvencio Colon MD s Right 3rd Finger Amputation with Application of Wound Vac(Right) - Juvencio Colon MD Physical Exam Psychiatric Orientation: oriented to person; + not oriented to place and + not oriented to time Apperance: + disheveled obese Eye Contact: + poor eye contact Motor Behavior: + psychomotor retardation soft, minimal Affect: + blunted affect (appears in physical discomfort) Mood: + anxious mood Thought Process: + thought process not clear or coherent Thought Content: + preoccupation (somatic) Hallucinations: + visual hallucinations (possible) Cognition: + recent memory not intact, + remote memory not intact and + attention not intact Insight: + limited insight Vital Signs (Past 24 Hours) Last Vital Signs Temp 36.9 C 04/11/19 06:49 Pulse 79 04/11/19 06:49 Resp 18 04/11/19 06:49 BP 100/60 04/11/19 06:49 Pulse Ox 96 04/11/19 06:49 Results & Data Laboratory Results Laboratory Results - last 24 hr 04/10/19 04/10/19 04/10/19 13:28 17:16 20:40 WBC RBC Hgb Hct MCV MCH MCHC RDW Std Deviation RDW Coeff of Tommy Plt Count MPV PT INR Sodium Potassium Chloride Carbon Dioxide Anion Gap BUN Creatinine Est Cr Clr Drug Dosing Est GFR ( Amer) Est GFR (Non-Af Amer) BUN/Creatinine Ratio Glucose POC Glucose 162 H 151 H 104 H Calcium 04/11/19 04/11/19 04/11/19 06:58 06:58 06:58 WBC 5.36 RBC 2.94 L Hgb 9.2 L Hct 28.7 L MCV 97.6 MCH 31.3 MCHC 32.1 RDW Std Deviation 58.9 H RDW Coeff of Tommy 16.8 H Plt Count 268 MPV 9.8 PT 17.2 H INR 1.7 H Sodium 138 Potassium 4.0 D Chloride 106 Carbon Dioxide 27 Anion Gap 5.0 BUN 19 H Creatinine 4.47 H D Est Cr Clr Drug Dosing 16.3 Est GFR ( Amer) 11.6 Est GFR (Non-Af Amer) 10.0 BUN/Creatinine Ratio 4.3 L Glucose 104 H POC Glucose Calcium 8.0 L 04/11/19 04/11/19 08:21 12:00 WBC RBC Hgb Hct MCV MCH MCHC RDW Std Deviation RDW Coeff of Tommy Plt Count MPV PT INR Sodium Potassium Chloride Carbon Dioxide Anion Gap BUN Creatinine Est Cr Clr Drug Dosing Est GFR ( Amer) Est GFR (Non-Af Amer) BUN/Creatinine Ratio Glucose POC Glucose 112 H 208 H Calcium Current Inpatient Medications Current Inpatient Medications: Current Inpatient Medications Acetaminophen (Tylenol) 1,000 mg PO Q6H PRN PRN Reason: Fever Stop: 04/25/19 18:52 Last Admin: 04/07/19 17:53 Dose: 1,000 mg Documented by: Hydrocodone Bitart/Acetaminophen (Royal 5/325) 0 tab PO Q4H PRN PRN Reason: Pain Stop: 04/21/19 18:42 Last Admin: 04/11/19 09:21 Dose: 2 tab Documented by: Aspirin (Ecotrin Ectab) 81 mg PO DAILY DELANEY Stop: 04/26/19 18:59 Last Admin: 04/11/19 08:38 Dose: 81 mg Documented by: Atorvastatin Calcium (Lipitor) 40 mg PO HS DELANEY Stop: 05/10/19 20:59 Last Admin: 04/10/19 21:45 Dose: 40 mg Documented by: Bisacodyl (Dulcolax) 10 mg MO DAILY PRN PRN Reason: Constipation Stop: 04/25/19 18:52 Bisacodyl (Dulcolax) 5 mg PO DAILY PRN PRN Reason: Constipation Stop: 04/25/19 18:52 Last Admin: 04/06/19 15:27 Dose: 5 mg Documented by: Bumetanide (Bumex) 2 mg PO DAILY DELANEY Stop: 04/24/19 08:59 Last Admin: 04/11/19 08:38 Dose: 2 mg Documented by: Calcium Carbonate (Tums) 1,000 mg PO AC DELANEY Stop: 04/24/19 07:29 Last Admin: 04/11/19 12:57 Dose: 1,000 mg Documented by: Clopidogrel Bisulfate (Plavix) 75 mg PO QAM DELANEY Stop: 04/26/19 18:59 Last Admin: 04/11/19 08:37 Dose: 75 mg Documented by: Dextrose (Dextrose 50%) 25 - 50 ml IV UD PRN; Protocol PRN Reason: Hypoglycemia Protocol Stop: 04/23/19 20:56 Docusate Sodium (Colace) 100 mg PO BID PRN PRN Reason: Constipation Stop: 04/25/19 18:52 Last Admin: 04/05/19 22:29 Dose: 100 mg Documented by: Glucagon (Glucagen) 1 mg SQ UD PRN; Protocol PRN Reason: Hypoglycemia Protocol Stop: 04/23/19 20:56 Glucose (Glucose 40%) 15 - 30 gm PO UD PRN; Protocol PRN Reason: Hypoglycemia Protocol Stop: 04/23/19 20:56 Glucose (Dex4 Glucose) 4 - 8 tabs PO UD PRN; Protocol PRN Reason: Hypoglycemia Protocol Stop: 04/23/19 20:56 Hydromorphone HCl (Dilaudid) 1 mg IV Q4H PRN PRN Reason: Moderate Pain Stop: 04/12/19 10:15 Last Admin: 04/10/19 11:48 Dose: 1 mg Documented by: Imipenem/Cilastatin Sodium 200 (mg/ Dextrose) 108 mls @ 100 mls/hr IV Q6H DELANEY; Protocol Stop: 05/05/19 21:59 Last Infusion: 04/11/19 10:43 Dose: Infused Documented by: Sodium Chloride (Nss) 250 mls @ 15 mls/hr IV .[id number] PRN PRN Reason: For Transfusion Stop: 05/08/19 08:29 Insulin Aspart (Novolog Flexpen) 0 units SC ACHS [facility]; Protocol Stop: 05/06/19 05:59 Last Admin: 04/11/19 12:56 Dose: 11 units Documented by: Insulin Glargine (Lantus Solostar Pen) 0 units SC BID [facility]ANEY; Protocol Stop: 05/07/19 20:59 Last Admin: 04/11/19 09:10 Dose: 5 units Documented by: Levothyroxine Sodium (Synthroid) 50 mcg PO DAILYBB [facility] Stop: 04/24/19 06:29 Last Admin: 04/11/19 08:37 Dose: 50 mcg Documented by: Levothyroxine Sodium (Synthroid) 200 mcg PO DAILYBB [facility] Stop: 04/24/19 06:29 Last Admin: 04/11/19 08:37 Dose: 200 mcg Documented by: Lidocaine/Prilocaine (Emla 2.5%) 1 ea EXT . DIRECTED PRN PRN Reason: PRIOR TO DIALYSIS Stop: 04/25/19 18:52 Metoprolol Tartrate (Lopressor) 25 mg PO BID DELANEY Stop: 04/23/19 20:59 Last Admin: 04/11/19 08:39 Dose: Not Given Documented by: Miscellaneous (Carbohydrates For Hypoglycemia) 15 - 30 gm PO UD PRN PRN Reason: Hypoglycemia Treatment Stop: 04/23/19 20:56 Last Admin: 04/09/19 17:07 Dose: 15 gm Documented by: Miscellaneous Information (Consult Glycemic Management Pharmacy) 1 ea N/A UD PRN PRN Reason: Consult Stop: 04/24/19 15:09 Nitroglycerin (Nitrostat) 0.4 mg SL UD PRN PRN Reason: Chest Pain Stop: 04/23/19 20:56 Ondansetron HCl (Zofran) 4 mg IV Q6H PRN PRN Reason: Nausea Stop: 04/23/19 20:56 Last Admin: 04/04/19 04:32 Dose: 4 mg Documented by: Polyethylene Glycol (Miralax Powder Packet) 17 gm PO DAILY DELANEY Stop: 04/24/19 08:59 Last Admin: 04/11/19 08:39 Dose: 17 gm Documented by: Pramipexole Dihydrochloride (Mirapex) 0.25 mg PO HS DELANEY Stop: 04/23/19 20:59 Last Admin: 04/10/19 21:58 Dose: 0.25 mg Documented by: Quetiapine Fumarate (Seroquel) 25 mg PO HS DELANEY Stop: 05/08/19 20:59 Last Admin: 04/10/19 20:00 Dose: 25 mg Documented by: Sennosides (Senokot) 8.6 mg PO HS PRN PRN Reason: Constipation Stop: 04/25/19 18:52 Sertraline HCl (Zoloft) 37.5 mg PO HS DELANEY Stop: 04/23/19 20:59 Last Admin: 04/10/19 21:45 Dose: 37.5 mg Documented by: Sevelamer HCl (Renagel) 800 mg PO TIDM DELANEY Stop: 04/24/19 07:59 Last Admin: 04/11/19 12:59 Dose: 800 mg Documented by: Vitamin D (Vitamin D3) 2,000 units PO DAILY [facility]ANEY Stop: 04/24/19 08:59 Last Admin: 04/11/19 08:38 Dose: 2,000 units Documented by: Warfarin Sodium (Coumadin) 3 mg PO DAILY@1600 DELANEY Stop: 05/07/19 15:59 Last Admin: 04/10/19 17:50 Dose: 3 mg Documented by: CPT Code CPT Code 69749
[2019-04-11] MEDS ORDERED: QUETIAPINE FUMARATE 25 MG TABLET PO PRN (13:47)
[2019-04-11] MEDS: WARFARIN SOD 3 MG TAB PO SCH (17:42)
[2019-04-11] MEDS ORDERED: QUETIAPINE FUMARATE 25 MG TABLET PO SCH (18:00)
[2019-04-11] MEDS: ATORVASTATIN 40 MG TAB PO SCH (22:07)
[2019-04-11] MEDS: SERTRALINE HCL 50 MG TABLET PO SCH (22:07)
[2019-04-11] MEDS: PRAMIPEXOLE DIHYDROCHLO 0.25 MG TAB PO SCH (22:07)
[2019-04-11] MEDS: QUETIAPINE FUMARATE 25 MG TABLET PO SCH (22:07)
[2019-04-12] MEDS: IMIPENEM/CILASTATIN SODIUM 200 MG in DEXTROSE 5% 100 ML IV SCH ×2 (03:52→09:01)
[2019-04-12] MEDS: HYDROCODONE/ACETAMOPHEN 5/325MG TAB PO PRN ×3 (05:00→13:31)
[2019-04-12] MEDS: LEVOTHYROXINE SODIUM 200 MCG TABLET PO SCH (06:15)
[2019-04-12] MEDS: LEVOTHYROXINE SODIUM 50 MCG TABLET PO SCH (06:15)
[2019-04-12 06:33] LABS: Hematocrit (blood only) 29.2 % (37-47); Hemoglobin 9.3 g/dL (12.0-16.0); Mean Corpuscular Hgb Conc 31.8 g/dL (32-36); Mean Corpuscular Volume 96.4 fL (80-100); Mean Platelet Volume 9.5 fL (7.4-10.4); Platelet Count 268 K/uL (130-400); RDW Coefficient of Variation 16.4 % (11.5-14.5); RDW Standard Deviation 57.4 fL (36.4-46.3); Red Blood Count 3.03 M/uL (4.2-5.4); White Blood Count 5.72 K/uL (4.8-10.8)
[2019-04-12 07:12] LABS: BUN Creatinine Ratio 4.8 (10-20); Calcium 8.6 mg/dl (8.5-10.1); Creatinine Clr Calc Pharmacy 12.6 ml/min; Est GFR (African American) 8.5; Est GFR (Non-African American) 7.3; Potassium 4.3 mmol/L (3.5-5.1)
[2019-04-12] MEDS ORDERED: MICONAZOLE NITRATE POWDER 43 GM EXT PRN (07:41)
[2019-04-12 08:06] LABS: INR 2.8 (0.9-1.1); Prothrombin Time 26.3 Seconds (9.0-12.0)
[2019-04-12] MEDS: CHOLECALCIFEROL 1,000 UNITS TAB PO SCH (09:00)
[2019-04-12] MEDS: SEVELAMER HCL 800 MG TABLET PO SCH ×2 (09:00→12:38)
[2019-04-12] MEDS: CLOPIDOGREL BISULFATE 75 MG TAB PO SCH (09:00)
[2019-04-12] MEDS: BUMETANIDE 1 MG TAB PO SCH (09:00)
[2019-04-12] MEDS: METOPROLOL TARTRATE 25 MG TAB PO SCH (09:01)
[2019-04-12] MEDS: CALCIUM CARBONATE 500 MG CHEWABLE TAB PO SCH ×2 (09:01→12:37)
[2019-04-12] MEDS: ASPIRIN 81 MG ECTAB PO SCH (09:01)
[2019-04-12] MEDS: POLYETHYLENE (MIRALAX) 17 GM PACK PO SCH (09:01)
[2019-04-12] MEDS: INSULIN GLARGINE SOLOSTAR 100 UNITS/ML 3 ML PEN SC SCH (09:04)
[2019-04-12] MEDS: INSULIN ASPART 100 UNITS/ML 3 ML PEN SC SCH ×2 (09:05→12:39)
--- NOTE | 2019-04-12 09:57 | Nephrology Progress Note ---
Date of Service April 12, 2019 Assessment & Plan (1) End-stage renal disease on hemodialysis: ESRD on HD TTS, admitted with rt hand cellulitis and osteomyelitis, s/p I&D and index finger amputation 03/31/19, R middle finger amputation on 04/06/19. Culture + corynebacterium, actinomyces and anaerobes, on Imipenem -- Volume status and electrolyte balance are acceptable. No acute indication for HD today -- AVF with weak thrill and poor bruit, remains significantly ecchymotic and tender. Patient is unable to hold arm still due to discomfort from recent surgery. Will continue to rest AVF and continue HD via RIJ permcath (placed 04/02/19) -- Renal diet --Tsat 65% and ferritin >1000, stable, Hgb , continue SHANI w/ HD treatments Will follow (2) Cellulitis of right hand: (3) Anemia: (4) Secondary hyperparathyroidism of renal origin: Edwige Sheets was seen & examined in her room. She has persistent discomfort related to her R hand surgery and wound. She denies fever, angina or dyspnea, however, very anxious with her rt hand and worried that she may loose her hand. Her IJ THC functioned well while AVF resting. Physical Exam Constitutional: WD/WN, vitals as above Respiratory: normal respiratory effort, lungs clear to auscultation Cardiovascular: RRR, no murmur, no edema Neurologic: PERRL, EOMI, accommodation nl, no face palsy, no dysarthria Psychiatric: Orientation: alert and oriented x 3 Affect: + tearful affect Mood: + anxious mood Results & Data Vital Signs (Past 12 Hours) Vital Signs Temp Pulse Pulse Pulse Resp BP BP 04/12/19 07:50 37.2 C 82 20 113/70 04/11/19 23:38 37.2 C 87 14 138/78 04/11/19 21:58 84 85 125/58 L Pulse Ox 04/12/19 07:50 96 04/11/19 23:38 98 04/11/19 21:58
--- NOTE | 2019-04-12 13:53 | Discharge Summary ---
Date of Service April 12, 2019 Admission HPI Per Admitting Provider 58yo female with ESRD on hemodialysis who was transferred to [facility] from [facility] ER ([place], [place]) due to right hand infection. The ER notes from [facility] suggest that she presented to them from a local SNF with a skin infection and was given intravenous vancomycin and linezolid. They did at that point time discuss her case with Dr. Meza from vascular surgery over the phone at which time she was transferred to our facility. Patient reported worsening swelling, redness, and tenderness to her right hand. There were open sores between the second and third, and fourth and fifth digits. Admission Exam Per Admitting Provider The patient appeared clinically unconfused Vital signs as documented. Head exam is unremarkable. normocephalic, atraumatic Neck is without jugular venous distension, thyromegaly, or lymphademopathy Lungs are diminished at both bases Cardiac exam reveals Rhythm is regular. Systolic ejection murmurs heard first and second heart sounds normal. Abdominal exam reveals normal bowel sounds, no masses, no organomegaly right hand erythema and swelling with open areas about the right hand with some dry gangrene to the distal fifth digit Neurologic exam is A&Ox2, no focal deficits, strength is equal bilateral Psychologically seems confused Skin is concern for right hand cellulitis Principal Diagnosis Ischemic Finger/Right Hand Osteomyelitis Discharge Exam General: Resting comfortably in no apparent distress HEENT: NC/AT; PERRLA with EOMI; [place] conjunctiva, MMM. No erythema of posterior pharynx Neck: Supple and nontender Cardiac: RRR w/o murmurs, gallops or rubs Lungs: CTA bilaterally; No rhonchi, wheezing, or rales Abdomen: Bowel normoactive X 4; Nontender to palpation Extremities: Warm. No edema present. Dressing in place over right hand wound, 4th and 5th digits with significant edema. Neuro: No focal weakness Skin: No rash Discharge Data Allergies Allergy/AdvReac Type Severity Reaction Status Date / Time oxycodone Allergy Intermediate HIVES,RASH Verified 03/24/19 16:46 Sulfa (Sulfonamide Allergy Intermediate HIVES,RASH Verified 03/24/19 16:46 Antibiotics) cephalexin Allergy Mild HIVES Verified 03/24/19 16:46 Penicillins Allergy Mild RASH Verified 03/24/19 16:46 Dyazide Allergy Unknown UNKNOWN Verified 05/08/18 11:24 hydrochlorothiazide Allergy Unknown UNKNOWN Verified 03/24/19 16:46 Sulfonylureas Allergy Unknown UNKNOWN Verified 03/24/19 16:46 triamterene Allergy Unknown UNKNOWN Verified 03/24/19 16:46 CARBONIC Allergy Unknown UNKNOWN Uncoded 03/24/19 16:46 Consultations 03/24/19 20:57 Consult Case Management - Discharge Planning Routine Consult Infectious Diseases Routine Consult Nephrology Routine 03/24/19 21:22 Consult Orthopedic Surgery Routine 04/05/19 08:19 Consult Psychiatry Routine Procedures Performed Operation Date: 03/26/19 13:40 Actual Procedures p Incision and Drainage abscess dorsal right hand x2 separate locations; Debridement 2nd extensor; tenonectomy of 2nd and 3rd extensor; partial fasciectomy dorsal hand(Right) - Henrik Izaguirre DO s Amputation 2nd metacarpal head and 2nd proximal phalanx; (Right) - Henrik Izaguirre DO Operation Date: 03/31/19 07:00 Actual Procedures p Right Index finger amputation, application of VAC sponge(Right) - Juvencio Colon MD Operation Date: 04/02/19 12:50 Actual Procedures p Insertion of Perm Catheter Right Jugular Approach, Ultrasound Localization of Right Jugular Vein, Superior Vena Cavagram, Fluoroscopy for Positioning, Moderate Sedation [id number](Right) - Dayton Meza MD Operation Date: 04/06/19 07:00 Actual Procedures p Right Hand Incision and Drainage Repeat;(Right) - Juvencio Colon MD s Right 3rd Finger Amputation with Application of Wound Vac(Right) - Juvencio Colon MD Temporary dialysis catheter via femoral vein - now removed Ordered Studies 03/24/19 16:04 US arterial duplex UE RT Stat 03/24/19 20:57 CT hand RT wo con Routine 03/27/19 11:33 US hemodialysis access Stat CXR 03/28/19 08:38 CT angio hand RT wo/w con Urgent 03/28/19 20:33 US point of care ultrasound Urgent 03/31/19 Hand XR 04/02/19 10:22 EV cvc insrt tunnel wo prt/manager printing Routine 04/07/19 16:21 US liver Routine Hospital Course (1) Ischemic finger: Pt. was initially admitted for right hand cellulitis. Right index finger became cool, mottled, and painful. Discussed this with Dr. Izaguirre, Dr. Meza and Dr. Colon, as well as a vascular surgeon from [place] in regards to any salvage therapy for the index finger. Aspirin was continued; Plavix was also added. CTA right hand 03/28 showed low in the radial, ulnar, superficial palmar, and deep palmar arteries, no flow within the digital artery along the radial aspect of the second finger, thrombosis of the proximal digital artery along the ulnar aspect of the second finger & moderate stenosis with near complete to complete occlusion involving the digital artery along the ulnar aspect of the third finger Further treatment as noted below. (2) Osteomyelitis of hand, right, acute: Diabetic hand infection. CT hand 03/25 showed osteomyelitis. Seen by vascular, ortho, and ID. Had extensive washout and debridement on 03/[address] Izaguirre - had multiple abscesses, partial amputations of the second metacarpal head and second proximal phalanx. Wound culture with actinomyces, corynebacterium and ej - did not treat Ej per ID recs. Started Imipenem/cilastatin on 03/24, will need to complete 6 week course. US guided PIV was placed prior to discharge. Surgery on 03/31 with amputation of right index finger. S/p 04/06 I[address] Colon with amputation of right 3rd finger and placement of wound vac. Wound vac will need exchanged q3days, was exchanged on day of discharge. May require future debridement, f/u with ortho in 7 days. (3) Hypothyroidism: TSH was 0.2 on 03/26. Continued home Synthroid 250 mcg Will need repeat labs in 3-4 weeks. (4) Hyperkalemia: In setting of ESRD, now resolved. (5) Atrial fibrillation: History of atrial fibrillation and CVA. Chads-Vasc of 6, is high risk. Rate-controlled with Metoprolol 25mg PO BID. Had supratherapeutic INR on presentation -- received Vit K pre op. Restarted Coumadin per surgery; INR was 2.8 on day of discharge. Will continue 3 mg daily and continue PT/INR monitoring. (6) Diabetes: A1C of 9.7% on 03/25. Continue basal bolus insulin with sliding scale coverage Glycemic pharmacist consult. Will need close follow up with endocrinology. (7) End-stage renal disease on hemodialysis: K was 6.8 on admission in setting of ESRD. Continued home Bumex and Sevelamer. S/p HD on 03/25/19. Failed HD on 03/27, US showed patent AV fistula. Had urgent femoral HD line placed on 03/27/19 and completed HD. Follows with nephro as outpatient. (8) Anemia: Anemia of chronic disease and CKD. (9) Restless leg syndrome: Continued ropinerole qhs. (10) Delirium: Increased Seroquel to 25 mg qhs. (11) History of CVA (cerebrovascular accident): Complained of stroke like symptoms during this admission. No acute symptoms/signs on exam. Would not be a TPA candidate. Increased statin to 40 mg daily; continued home aspirin. Imaging was not obtained as it would not change plan of care. (12) DVT prophylaxis: Coumadin. Pt. was stable for discharge on 04/12/19 to [facility]. Will need close folllow up with wound care and orthopedics. Total Time Total Time Spent Total Time Spent (In Minutes): >30 minutes Total Time Includes: Examination of the Patient, Discharge Planning, Medication Reconciliation, Communication With Other Providers and Other Discharge Plan Discharge Items Patient Disposition: Transfer [facility] Reason For Visit: HAND CELLULITIS FAILING OUTPT TREATMENT Discharge Diagnosis: Ischemic Finger, Osteomyelitis of the Right Hand Condition: Fair Discharge Goals: Decrease discomfort, Diagnostic testing, Improve disease control, Improve function, Increase independence, Improve nutritional status and Prevent disease Activity: As commented below Non-emergency contact: Primary Care Provider and Surgeon Call non-emergency contact if: you have any medication questions, your symptoms worsen, your pain is not controlled, your pain is worsening, your pain is unusual for you, your pain is concerning for you, you have a fever, your wound has increased redness, your wound has increased drainage and your wound pain has increased Follow-up/Referrals: LAITH WICK [Primary Care Provider] - Diet: Carb Consistent or DM2 Fluids: 2000ml (8 cups) Addtl Provider Instructions: 1. Ischemic Finger/Osteomyelitis of the Right Hand * S/p washout and debridement on 03/[address] Izaguirre. * S/p amputation of right index finger on 03/31. * S/p 3rd finger amputation with wound vac placement on 04/06. * Wound culture is positive for Actinomyces, Corynebacterium and Ej. * Please continue IV antibiotics via ultrasound guided peripheral IV; patient will need to complete a 6 week course (end date: 05/05/2019) * Pt. will need to follow up in the wound clinic every 3 days starting on 04/15 for wound vac changes. * Please schedule an appointment with orthopedics in 7 days (Dr Colon [phone]) for wound evaluation. * Please continue atorvastatin and aspirin as prescribed; Plavix 75 mg daily has also been added. 2. Atrial Fibrillation * Please continue Coumadin 3 mg daily. * Most recent INR level was 2.8 today -- level was previously low ~1.5-1.7. * Please continue to monitor PT/INR and adjust dose per protocol. 3. Hypothyroidism * TSH level was low during this admission (0.02) * Pt. will need follow up lab work in 3-4 weeks; she may require dose adjustment. 4. Diabetes Mellitus * Please resume home basal/bolus insulin regimen. * Continue to monitor blood glucose checks ac/hs. * Hemoglobin A1C was 9.7 on 03/25; recommend follow up with PCP or endocrinology in near future. 5. End Stage Renal Disease on HD * Please continue home medications as prescribed. * Please schedule follow up with nephrology in 1-2 weeks for evaluation. * Avoid PICC/midline placement in left upper extremity if possible due to development of AVF in right arm/need for possible line placement in left arm in the future. 6. Please monitor labs, including BMP, Magnesium and CBC with platelets, 1-2 times weekly. 7. Please schedule an appointment with her primary care provider in 1-2 weeks to discuss this hospital admission. Wound vac changes per [facility] instructions placed in discharge instructions. Prescriptions: New warfarin [Coumadin] 3 mg Tablet 3 mg PO DAILY@1600 Qty: 1 RF: 0 aspirin [Ecotrin Low Strength] 81 mg Tablet,Delayed Release (/Ec) 81 mg PO DAILY Qty: 1 RF: 0 imipenem-cilastatin 250 mg recon soln 200 mg IV Q6H Qty: 1 RF: 0 Continued sennosides [senna] 8.6 mg Tablet 8.6 mg PO HS PRN (Reason: Constipation) RF: 0 bumetanide 2 mg tablet 2 mg PO DAILY RF: 0 levothyroxine 50 mcg tablet 50 mcg PO DAILY RF: 0 bisacodyl 10 mg Suppository 10 mg NJ DAILY PRN (Reason: Constipation) RF: 0 calcium carbonate [Tums] 200 mg calcium (500 mg) Tablet,Chewable 400 mg PO AC RF: 0 docusate sodium 100 mg Capsule 100 mg PO BID PRN (Reason: Constipation) RF: 0 pramipexole 0.25 mg tablet 0.25 mg PO HS RF: 0 sertraline 25 mg tablet 37.5 mg PO HS RF: 0 levothyroxine 200 mcg tablet 200 mcg PO DAILY RF: 0 bisacodyl 5 mg Tablet,Delayed Release (Dr/Ec) 5 mg PO DAILY PRN (Reason: Constipation) RF: 0 insulin lispro 100 unit/mL solution 7 units subcut AMHS RF: 0 insulin lispro 100 unit/mL solution 9 units subcut BID RF: 0 polyethylene glycol 3350 17 gram/dose Powder 17 g PO DAILY RF: 0 metoprolol tartrate 25 mg tablet 25 mg PO BID RF: 0 insulin glargine 100 unit/mL (3 mL) insulin pen 20 units subcut BID RF: 0 sevelamer carbonate 800 mg tablet 800 mg PO TIDM RF: 0 cholecalciferol (vitamin D3) 2,000 unit Capsule 2,000 units PO DAILY RF: 0 lidocaine-prilocaine 2.5-2.5 % Cream 1 applic topical DIRECTED PRN (Reason: PRIOR TO DIALYSIS) RF: 0 Selan Silver Protectant 1 applic topical BID RF: 0 Changed acetaminophen 500 mg Tablet 500 mg PO Q6H PRN (Reason: fever or pain) Qty: 1 RF: 0 Discontinued atorvastatin 40 mg Tablet 20 mg PO HS RF: 0 acetaminophen 325 mg Tablet 650 mg PO Q6 MDD 3 GRAMS/24 HOURS PRN (Reason: Fever) RF: 0 hydrocodone-acetaminophen 5-325 mg Tablet 1 tab PO Q6 PRN (Reason: Pain) RF: 0 melatonin 3 mg Tablet 3 mg PO HS PRN (Reason: Insomnia) RF: 0 sodium bicarbonate 650 mg Tablet 650 mg PO 4XWK RF: 0 warfarin 3 mg Tablet 3 mg PO 4XWK RF: 0 warfarin 2.5 mg Tablet 2.5 mg PO 3XWK RF: 0 tramadol 50 mg Tablet 50 mg PO Q4 PRN (Reason: Pain) RF: 0 linezolid 600 mg Tablet 600 mg PO Q12H RF: 0 mupirocin 2 % Ointment 1 applic TOPICAL DAILY RF: 0 vancomycin 1.25 gram Recon Soln 1 g IV DAILY RF: 0 Stand-Alone Forms: [facility] Discharge Orders: Discharge Order (Routine); Ordered 04/12/19 Ordered By: Kim Vasquez Skilled Items Patient informed of condition?: Yes DNR: No Discharge Level of Care: Skilled Communicable Disease: No Discharge Prognosis: Improving Admission Data Admit Date/Time: 03/24/19 19:02 Attending Provider: George Rock Admit Provider: Santi Elizabeth Primary Care Provider: LAITH WICK Other Providers: Natalio Younger ; Kristyn Harrington ; Chapo Salter ; Henrik Izaguirre ; Dayton Meza ; Joe Galan ; Aleksandr Ford ; Bari Long ; Greg Alva ; Jovon Marshall ; Murtaza Reyna ; Chris Valadez ; Manuelito Vasquez ; Trini Blackmon ; Nixon Will ; Juvencio Colon ; Greg Hein ; Akbar Rowe ; Russ Littlejohn ; Elder Durbin ; Abraham Brandt ; Ling Sparrow ; Maggie Ceballos ; Zeina Crowell ; Darshan Topete ; Samuel Fields ; Kim Vasquez Service: Surgical Services Other Interventions: Discharge Summary Assessment (RN) Last Done: 04/12/19 13:14 Pending Studies at Discharge: No DC Date/Time DO NOT enter until pt leaves facility: 04/12/19 15:08 Supervising Physician Co-Signing Physician Notes Attending Attestation & Discharge Note: Pt seen/examined, chart reviewed, care plan d/w SILVESTRE Vasquez. I agree w/ the niño components of her discharge documentation. Complicated 58yo female with ESRD on HD who presented to our hospital with extensive right hand infection. Imaging showed osteomyelitis of the right 2nd finger along with gangrene. Multiple consultants were involved in her care including orthopedics, vascular, ID, and nephrology. Initially underwent amputation of the RIGHT 2nd digit. Later on in her stay she also underwent RIGHT 3rd digit amputation for gangrene. Lengthy hospitalization marked by hematoma formation over the right arm dialysis fistula. She ultimately needed placement of a right IJ permcath for dialysis purposes due to the right arm fistula issues. IV antibiotics were received her entire stay. She will continue on IV imipenem post-discharge via u/s-guided peripherally in serted IV. She will need close follow-up with ID and orthopedics after discharge, preferably within 1 week. Discharge exam: gen - looks older than stated age, NAD, obese mouth - MMM, no thrush neck - no JVD chest - right IJ permcath heart - RRR s1 s2 1/6 MIS LSB lungs - CTA b/l abd - soft NT ND BS+ ext - right hand - absence of 2nd/3rd fingers; dressings intact; wound vac in place; legs - no edema; pulses 2+ b/l of feet George Rock MD
[2019-04-13] MEDS ORDERED: SODIUM CHLORIDE 0.9% 1000ML 1,000 ML IV PRN (07:00)
== END 2019-04-12 15:08 | DRG 629 ==
LOC: ED 15:49 → SUATTDRO 19:02 → 2S 19:02 → 3E 03-29 17:07
DX: E11.69 Type 2 diabetes mellitus with other specified complication; L02.511 Cutaneous abscess of right hand; D63.1 Anemia in chronic kidney disease; G25.81 Restless legs syndrome; L03.113 Cellulitis of right upper limb; M86.141 Other acute osteomyelitis, right hand; Z99.2 Dependence on renal dialysis; E87.5 Hyperkalemia; I99.8 Other disorder of circulatory system; E78.5 Hyperlipidemia, unspecified; Z79.01 Long term (current) use of anticoagulants; Z88.2 Allergy status to sulfonamides; M66.241 Spontaneous rupture of extensor tendons, right hand; M72.8 Other fibroblastic disorders; Z87.891 Personal history of nicotine dependence; I48.91 Unspecified atrial fibrillation; E11.22 Type 2 diabetes mellitus with diabetic chronic kidney disease; E87.1 Hypo-osmolality and hyponatremia; M65.141 Other infective (teno)synovitis, right hand; Z88.8 Allergy status to other drugs, medicaments and biological substances; Z88.1 Allergy status to other antibiotic agents; I12.0 Hypertensive chronic kidney disease with stage 5 chronic kidney disease or end stage renal disease; E03.9 Hypothyroidism, unspecified; Z88.0 Allergy status to penicillin; E11.628 Type 2 diabetes mellitus with other skin complications; R41.0 Disorientation, unspecified; I74.2 Embolism and thrombosis of arteries of the upper extremities; Z79.899 Other long term (current) drug therapy; N18.6 End stage renal disease; Z88.5 Allergy status to narcotic agent; E11.52 Type 2 diabetes mellitus with diabetic peripheral angiopathy with gangrene; N25.81 Secondary hyperparathyroidism of renal origin; I70.208 Unspecified atherosclerosis of native arteries of extremities, other extremity; Z86.73 Personal history of transient ischemic attack (TIA), and cerebral infarction without residual deficits; B96.89 Other specified bacterial agents as the cause of diseases classified elsewhere; Z79.2 Long term (current) use of antibiotics; Z79.4 Long term (current) use of insulin

== ENCOUNTER 2019-07-01 11:50 | Inpatient (IN) ==
[2019-07-01] MEDS ORDERED: KETOROLAC TROMETHAMINE 15 MG/ML VIAL ONE (19:28)
[2019-07-01] MEDS ORDERED: CARBOHYDRATES FOR HYPOGLYCEMIA PO PRN (20:09)
[2019-07-01] MEDS ORDERED: DEXTROSE 50% 50 ML SYRINGE IV PRN (20:09)
[2019-07-01] MEDS ORDERED: GLUCOSE 40% GEL 15 GM TUBE PO PRN (20:09)
[2019-07-01] MEDS ORDERED: GLUCOSE 10 TABS/TUBE PO PRN (20:09)
[2019-07-01] MEDS ORDERED: LIDOCAINE/PRILOCAINE 2.5% EA CRM EXT PRN (20:14)
[2019-07-01] MEDS ORDERED: ACETAMINOPHEN 500 MG TAB PO PRN (20:14)
[2019-07-01] MEDS ORDERED: BISACODYL 10 MG SUPP PR PRN (20:14)
[2019-07-01] MEDS ORDERED: SENNA 8.6 MG TAB PO PRN (20:14)
[2019-07-01] MEDS ORDERED: KETOROLAC TROMETHAMINE 15 MG/ML VIAL IV ONE (20:19)
[2019-07-01] MEDS: ACETAMINOPHEN 325 MG TAB PO PRN (20:32)
[2019-07-01] MEDS: HYDROmorphone INJ 1 MG/ML SYRINGE IV PRN (20:53)
--- NOTE | 2019-07-01 20:58 | History & Physical Report ---
Date of Service July 01, 2019 Assessment & Plan (1) Cellulitis of right hand: Right hand cellulitis -Patient has chronic issues with her right hand past medical history of amputation of 3 fingers and a nonhealing wound located now at the dorsum of the right hand. Hemodialysis fistula is also located in the right hand and because of infection she did not have hemodialysis today. -Admits to medicine on telemetry -Vital signs every 4 hours -Follow up from wound and blood cultures -CBC CMP BNP CRP ESR pending -Monitor labs daily, replenish electrolytes as necessary -Patient failed failed therapy with imipenem cilastatin as that outpatient and wound care -Please consult for infectious diseases, pending wound culture. Empirically started daptomycin and Ertapenem renally dosed. -Consulted vascular Dr. Mzea will follow up on patient in a.m. -Consulted Ortho per recommendation of Dr. Meza to evaluate right hand wound. -Arterial Doppler of the right upper extremity is ordered and result is pending. -For DVT prophylaxis patient is on warfarin because she also has atrial fibrillation. -Patient is a full code. Present on Admission?: Yes (2) End-stage renal disease on hemodialysis: Patient has end-stage renal disease and hemodialysis on Friday and Saturdays -Concerned that her fistula is infected. -Patient did not have hemodialysis today. -Consulted nephrology. Present on Admission?: Yes (3) Atrial fibrillation: No new findings. Continue warfarin anticoagulation. Continue aspirin 81 mg daily, continue metoprolol tartrate 25 mg twice daily Present on Admission?: Yes (4) Diabetes: A1c pending. Other labs are still pending. Accu-Cheks before meals and at bedtime. Sliding scale insulin and less systemic consults placed per pharmacy. Present on Admission?: Yes (5) Hypothyroidism: Stable, 50 MCG's continue home dose of levothyroxine 250 p.o. daily, TSH pending Present on Admission?: Yes (6) Restless leg syndrome: Stable, continue pramipexole 0.5 mg p.o. nightly Present on Admission?: Yes History of Present Illness Chief Complaint: Right hand osteoarthritis cellulitis Primary Care Provider: LAITH WICK 58yo female with PMhx of ESRD on hemodialysis , HTN, DMty, amputation of the two fingers -right hand , is transferred from [facility] ER ([place], [place])to be evaluated for right hand nonhealing wound and chronic osteo and cellulitis. Dr. Lomeli ER physician form [facility] stated that pt did not have HD today when it was scheduled due to the concern that her HD fistula could be affected by ongoing infection and worsening cellulitis of the right hand and remaining ringer 4 and 5th digit.They called Dr. Meza -vascular and arranged consult and admission at [facility]. Pt was discharged from [facility] on 03/24/2019 for the right wound infection and incision and drainage of the dorsal right hand , debridement, right index finger amputation , right 3rd finger amputation and dialysis was ongoing through catheter via femoral vein at that time.Patient reported worsening swelling, redness, and tenderness to her right hand. There is now open angry looking sore on the dorsum of the right hand approximately 4 cm x 5 cm in size. Culture at that time were positive for + corynebacterium, actinomyces and anaerobes. Pt was discharged home with Imipenem/cilastatine AVF with weak thrill and poor bruit-right arm , remains significantly ecchymotic and tender. Patient is unable to hold arm still due to discomfort from recent surgery. On arrival pt labs were ordered and still pending.Spoke to Dr. Meza and he recommneded Arterial Doppler of the right and and to consult orthopedics. Allergies Allergy/AdvReac Type Severity Reaction Status Date / Time oxycodone Allergy Intermediate HIVES,RASH Verified 03/24/19 16:46 Sulfa (Sulfonamide Allergy Intermediate HIVES,RASH Verified 03/24/19 16:46 Antibiotics) cephalexin Allergy Mild HIVES Verified 03/24/19 16:46 Penicillins Allergy Mild RASH Verified 03/24/19 16:46 Dyazide Allergy Unknown UNKNOWN Verified 05/08/18 11:24 hydrochlorothiazide Allergy Unknown UNKNOWN Verified 03/24/19 16:46 Sulfonylureas Allergy Unknown UNKNOWN Verified 03/24/19 16:46 triamterene Allergy Unknown UNKNOWN Verified 03/24/19 16:46 CARBONIC Allergy Unknown UNKNOWN Uncoded 03/24/19 16:46 Home Medications Home Medications Medication Instructions Recorded Confirmed Type Pieter Silver Protectant 1 applic TOPICAL BID 03/24/19 History lidocaine-prilocaine 1 applic TOPICAL DIRECTED PRN 03/24/19 03/24/19 History acetaminophen 500 mg PO Q6 PRN MDD 3000 07/01/19 07/01/19 History aspirin 81 mg PO DAILY 07/01/19 07/01/19 History bisacodyl 5 mg PO 07/01/19 History bisacodyl 10 mg GA DAILY PRN 07/01/19 07/01/19 History calcium carbonate [Tums] PO HS 07/01/19 History cholecalciferol (vitamin D3) 2,000 unit PO DAILY 07/01/19 07/01/19 History docusate sodium 100 mg PO BID 07/01/19 07/01/19 History insulin glargine 20 unit SUBCUT BID 07/01/19 07/01/19 History insulin lispro 7 - 9 unit SUBCUT BID 07/01/19 07/01/19 History metoprolol tartrate 25 mg PO BID 07/01/19 07/01/19 History polyethylene glycol 3350 17 g PO DAILY 07/01/19 07/01/19 History pramipexole 0.25 mg PO HS 07/01/19 07/01/19 History sertraline 37.5 mg PO DAILY 07/01/19 07/01/19 History sevelamer carbonate 800 mg PO TIDM 07/01/19 07/01/19 History warfarin 3 mg PO DAILY 07/01/19 07/01/19 History Past Med/Surg History Medical History Azotemia End-stage renal disease on hemodialysis Dialysis AV fistula malfunction Anemia Hyponatremia Secondary hyperparathyroidism of renal origin AV fistula infection AV fistula Diabetes mellitus, type 2 Hemodialysis patient Hyperlipidemia Hypertension Hypothyroidism MRSA (methicillin resistant Staphylococcus aureus) Shingles Stroke Surgical History H/O section History of cholecystectomy History of hand surgery Family History Unknown Diabetes Social History Preferred Language: Icelandic Communication Ability: Effective Network Desktop Support Specialist Required: No Beliefs That Will Affect Care: None marital status: Current Living Situation: [facility] Other Information That Helps Us Care for You: No Feels Safe at Home: Yes Safety Concerns: Feels Safe At This Time Smoking Status: Former smoker Smoking End Date: 2008 ; Hx Alcohol Use: Yes Hx Substance Use: No Review of Systems Review of Systems: All systems reviewed & are unremarkable except as noted in HPI & below Integumentary: Right upper extremity positive for swelling erythema that starts from the tip of the fingers and dorsum of the right hand and it is spreading to the upper part of the arm. Patient has open wound on the dorsum of the right hand. Wound looks angry purulent and inflammatory. Physical Exam Constitutional: WD/WN, vitals as above well developed and + obese Eyes: PERRL, conjunctivae normal, anicteric sclerae ENMT: external ear and nose normal, oropharynx normal Neck: trachea midline, no thyromegaly Respiratory: normal respiratory effort, lungs clear to auscultation Cardiovascular: RRR, no murmur, no edema Chest (Breasts): normal inspection/palpation of breasts Gastrointestinal (Abdomen): normal bowel sounds, soft, nontender, no hepatosplenomegaly Musculoskeletal: Right upper extremity: Open wound located at the dorsum of the hand approximately 4 x 6 cm in size, purulent draining. 3 fingers are amputated. There is some erythema on the fourth and fifth finger that is spreading to the upper parts of the hand. Erythema is associated with swelling/cellulitis. Skin: Cellulitis of the right hand. Neurologic: patellar DTR's 2+ bilat, sensation intact Psychiatric: A+Ox3, euthymic affect Orientation: cooperative Apperance: + disheveled Genitourinary: no vaginal lesions, no adnexal mass Lymphatic: no cervical or axillary lymphadenopathy Code Status & VTE Plan Code Status Full code VTE Prophylaxis Plan VTE Prophylaxis will be ordered: Yes PG Care Time/CCT Total # of Minutes Spent Total Time Spent with Patient: Total time spent is greater than 50% in coordination of care (as documented) at patient's floor/unit and/or counseling patient:
[2019-07-01] MEDS ORDERED: DAPTOmycin 450 MG in SYRINGE 0 ML IV SCH (21:00)
[2019-07-01] MEDS ORDERED: ERTAPENEM SODIUM 500 MG in SODIUM CHLORIDE 0.9% 50 ML IV SCH (21:00)
[2019-07-01 21:10] LABS: INR 1.1 (0.9-1.1); Partial Thromboplastin Ratio 0.9; Partial Thromboplastin Time 25.7 Seconds (21.0-31.0); Prothrombin Time 10.9 Seconds (9.0-12.0)
[2019-07-01] MEDS ORDERED: PHARMACY GLYCEMIC MGMT CONSULT PRN (21:15)
[2019-07-01 21:20] LABS: BUN Creatinine Ratio 14.4 (10-20); Blood Urea Nitrogen 86 mg/dl (7-18); Calcium 8.9 mg/dl (8.5-10.1); Carbon Dioxide 24 mmol/L (21-32); Chloride 96 mmol/L (98-107); Creatinine Clr Calc Pharmacy 11.8 ml/min; Est GFR (African American) 8.1; Glucose 147 mg/dl (70-99); NT Pro B Type Natriuretic Pept > 35000 pg/ml (0-900); Potassium 4.5 mmol/L (3.5-5.1); Sodium 133 mmol/L (136-145)
[2019-07-01] MEDS: PRAMIPEXOLE DIHYDROCHLO 0.25 MG TAB PO SCH (21:28)
[2019-07-01] MEDS: METOPROLOL TARTRATE 25 MG TAB PO SCH (21:29)
[2019-07-01] MEDS: DiphenhydrAMINE HCL 50 MG/ML VIAL IV PRN (21:36)
[2019-07-01 21:56] LABS: Basophils # (auto) 0.06 K/uL (0-0.2); Basophils % (auto) 0.4 %; Eosinophils # (auto) 0.06 K/uL (0-0.5); Eosinophils % (auto) 0.4 %; Hematocrit (blood only) 27.5 % (37-47); Hemoglobin 8.6 g/dL (12.0-16.0); Immature Granulocytes # (auto) 0.14 K/uL (0.00-0.02); Lymphocytes # (auto) 2.23 K/uL (1.2-3.4); Lymphocytes % (auto) 16.7 %; Mean Corpuscular Hgb Conc 31.3 g/dL (32-36); Mean Corpuscular Volume 97.5 fL (80-100); Mean Platelet Volume 10.6 fL (7.4-10.4); Monocytes # (auto) 1.08 K/uL (0.11-0.59); Monocytes % (auto) 8.1 %; Neutrophils # (auto) 9.82 K/uL (1.4-6.5); Neutrophils % (auto) 73.4 %; Platelet Count 234 K/uL (130-400); RDW Standard Deviation 57.4 fL (36.4-46.3); Red Blood Count 2.82 M/uL (4.2-5.4); White Blood Count 13.39 K/uL (4.8-10.8)
--- NOTE | 2019-07-01 22:40 | Pharmacy Report ---
Glycemic Control Consultation - Date of Service July 01, 2019 - Scope Scope: Glycemic Pharmacist consulted by Dr Parker on 07/01 for glycemic control and to write orders per [facility] inpatient glycemic control protocol - Objective Weight: 108.6 kg Accuchecks BSG (last 24hrs): 07/01/19 07/01/19 07/01/19 19:20 20:26 22:00 Glucose 147 H POC Glucose 152 H 161 H Laboratory Data (last 24hrs): 07/01/19 20:26 Potassium 4.5 Carbon Dioxide 24 Anion Gap 13.0 H Creatinine 6.00 H* Est Cr Clr Drug Dosing 11.8 - Recent Pertinent Medications Outpatient Anti-diabetic Regimen: * Lantus 20 units BID * Humalog 7-9 units BID * Patient's A1c result is likely somewhat unreliable in ESRD patients d/t interactions between the A1c analyzing technique and high levels of urea in ESRD, reduced RBC life span, iron deficiency anemia, and EPO administration. HbA1c > 7.5% in ESRD patient may overestimate the extent of hyperglycemia in ESRD patients. Risk Factors for Insulin Resistance: * Infection: R hand cellulitis/osteo * Diet: type 2 diabetes - Assessment & Plan Assessment & Plan: ASSESSMENT: * Patient admitted with R hand cellulitis, well known to pharmacy glycemic service from past admissions. She typically requires only ~30 units of insulin/day when admitted. Since BSGs are in range and she already received her 20 units of Lantus this AM (RN confirmed w/ patient that nurse gave it this AM), will not give further basal until tomorrow. Lantus and Novolog dosing will be similar to previous admissions. PLAN FOR INPATIENT GLYCEMIC CONTROL: * Basal insulin * Lantus qAM per the following scale: * 10 units for BSG < 110 * 15 units for BSG 110 or above * Bolus insulin * NovoLog per scale ACHS or Q6hrs while NPO * Goal Range: Low 110 mg/dL - High 140 mg/dL * Correction Factor: 25 mg/dL/unit * Nutritional / Prandial insulin per carb ratio of 1 unit per 8 grams CHO consumed * Please note that the plan above was derived based on current level of insulin resistance and hospital stress. These recommendations are appropriate for inpatient admission only. Plan of care upon discharge will need to be reassessed to avoid potential outpatient hypo/hyperglycemia. Thank you.
--- NOTE | 2019-07-01 22:58 | Ultrasound Report ---
DOPPLER ULTRASOUND RIGHT UPPER EXTREMITY HEMODIALYSIS ACCESS CLINICAL HISTORY: Right upper extremity wound. COMPARISON STUDY: Right upper extremity vascular ultrasound dated 03/27/2019. FINDINGS: Real-time, grayscale, and color Doppler sonography of the right upper extremity is performe d to assess the patient's AV fistula. The right upper extremity fistula is patent. Velocities within the fistula measure up to 255 cm/s. No intraluminal thrombus is identified. There is no adjacent rohini chloé. The distance from the skin to the fistula at the level of the antecubital fossa is 7 mm. The ca liber of the fistula at this level is 1.3 cm. A bypass in the distal right arm is patent with velocit ies measuring up to 50 cm/s. The right brachial artery and the right cephalic vein are patent. IMPRESSION: 1. Patent right upper stomach AV fistula as above. 2. Patent right upper extremity bypass as above. Electronically signed by: Augustus Madrid M.D. 07/01/2019 10:56 PM
[2019-07-02] MEDS: DiphenhydrAMINE HCL 50 MG/ML VIAL IV PRN (04:18)
[2019-07-02] MEDS: LEVOTHYROXINE SODIUM 125 MCG TABLET PO SCH (05:48)
[2019-07-02] MEDS: HYDROmorphone INJ 1 MG/ML SYRINGE IV PRN (05:48)
[2019-07-02 06:46] LABS: Basophils # (auto) 0.03 K/uL (0-0.2); Basophils % (auto) 0.3 %; Eosinophils # (auto) 0.08 K/uL (0-0.5); Eosinophils % (auto) 0.9 %; Hematocrit (blood only) 27.5 % (37-47); Hemoglobin 8.7 g/dL (12.0-16.0); Immature Granulocytes # (auto) 0.02 K/uL (0.00-0.02); Immature Granulocytes % (auto) 0.2 %; Lymphocytes # (auto) 1.87 K/uL (1.2-3.4); Lymphocytes % (auto) 20.2 %; Mean Corpuscular Hgb Conc 31.6 g/dL (32-36); Mean Platelet Volume 10.5 fL (7.4-10.4); Monocytes # (auto) 0.76 K/uL (0.11-0.59); Monocytes % (auto) 8.2 %; Neutrophils # (auto) 6.49 K/uL (1.4-6.5); Neutrophils % (auto) 70.2 %; Platelet Count 254 K/uL (130-400); RDW Coefficient of Variation 16.3 % (11.5-14.5); RDW Standard Deviation 59.5 fL (36.4-46.3); Red Blood Count 2.75 M/uL (4.2-5.4); White Blood Count 9.25 K/uL (4.8-10.8)
[2019-07-02 07:41] LABS: Albumin Globulin Ratio 0.4 (0.9-2); Albumin Level 2.3 gm/dl (3.4-5.0); BUN Creatinine Ratio 13.9 (10-20); Bilirubin,Total 0.4 mg/dl (0.2-1); C Reactive Protein 10.9 mg/dl (0-0.29); Calcium 8.7 mg/dl (8.5-10.1); Creatinine Clr Calc Pharmacy 10.8 ml/min; Est GFR (African American) 7.2; Est GFR (Non-African American) 6.2; Globulin 5.5 gm/dl (2.5-4.0); Potassium 4.9 mmol/L (3.5-5.1); Total Protein 7.8 gm/dl (6.4-8.2)
[2019-07-02 07:56] LABS: Estimated Average Glucose 126 mg/dl
[2019-07-02] MEDS: INSULIN ASPART 100 UNITS/ML 3 ML PEN SC SCH ×4 (08:44→21:29)
[2019-07-02] MEDS: INSULIN GLARGINE SOLOSTAR 100 UNITS/ML 3 ML PEN SC SCH (08:45)
[2019-07-02] MEDS: SEVELAMER HCL 800 MG TABLET PO SCH ×3 (08:47→17:30)
[2019-07-02] MEDS: BUMETANIDE 1 MG TAB PO SCH (08:47)
[2019-07-02] MEDS: ASPIRIN 81 MG ECTAB PO SCH (08:47)
[2019-07-02] MEDS: CHOLECALCIFEROL 1,000 UNITS TAB PO SCH (08:48)
[2019-07-02] MEDS: POLYETHYLENE (MIRALAX) 17 GM PACK PO SCH (08:48)
[2019-07-02] MEDS: METOPROLOL TARTRATE 25 MG TAB PO SCH ×2 (08:48→21:31)
[2019-07-02] MEDS ORDERED: DAPTOmycin 500 MG VIAL IV SCH (09:00)
[2019-07-02] MEDS ORDERED: LEVOTHYROXINE SODIUM 50 MCG TABLET PO SCH (09:00)
--- NOTE | 2019-07-02 09:05 | Family Medicine Progress Note ---
Date of Service July 02, 2019 Assessment & Plan (1) History of CVA (cerebrovascular accident): 4-year-old woman on dialysis for end-stage renal disease transferred to [facility] due to right hand infection. Given vancomycin and linezolid at outside hospital. Started on daptomycin and ertapenem here Right Hand Wound Non healing, was admitted in March of this year to deal with it initially, after multiple debridements and amputation of 2nd and 3rd digits she still has an open purulent wound on dorsum of right hand and cellulitis of surrounding skin. Continuing ertapenem and daptomycin, patient failed imipenem cilastatin therapy Orthopedic surgery consulted for further debridement, possible amputation Dr. Meza consulted for threat to AV fistula Wound cultures pending ESRD TTHS dialysis, missed dose yesterday due to right upper extremity infection Doppler shows patent AVF Will discuss with nephrology and vascular safety of continuing hemodialysis at this time Patient is having itching, in setting of her pending hemodialysis this is a common symptom and possibly due to high levels of phosphorous will need dialysis to correct Diabetes A1c 6.0 On sliding scale Atrial Fibrillation on warfarin chronically 3 mg daily INR 1.1 on arrival will likely increase dose to make her therapeutic after discussion with ortho and vascular for any possible surgical intervention Hypothyroidism Continue home 250 mg Synthroid Restless Leg Syndrome Pramipexole .5mg nightly F/E/N: Dialysis diet DVT PPx: Warfarin Dispo: Med Surg (2) Delirium: (3) Ischemic finger: (4) Encounter for pre-operative examination: (5) Osteomyelitis of hand, right, acute: (6) Restless leg syndrome: (7) Hypothyroidism: Supervising Physician Co-Signing Physician Notes I personally examined the patient and verified all niño points of history and exam, discussed case, and agree with decision making with Dr Saldana. Feeling okay overall. Hand hurts. Whenever I see her later her spirits and mood are much brighter than when she first seen with Dr. Saldana, of note her son is present. Home Care Associate input appreciated. Vitals noted, in general she is awake and alert pleasant no distress. HEENT normocephalic atraumatic mucous membranes moist. Breathing is unlabored no accessory muscle use good effort. Right hand has missing fingers, as well as large erythematous fingers. Hand cellulitis/nonhealing wound. Continue broad antibiotics. Reportedly has at least one blood culture positive, must treat as though it is real pending further speciation, covered with daptomycin. Continue to cover gram-negatives as well. Appreciate vascular, orthopedic input. End-stage renal disease on dialysiscontinue hemodialysis. Continue to follow her mood symptoms. DVT prophylaxiswarfarin Subjective Kortney Duglas is very depressed this morning, she is tearful and says she can't believe how quickly her life has been taken away from her. All she wants is to be independent and able to be home and walk and play with her grandchildren. She has pain and tenderness around her whole of her right arm, most intensely over dorsum of right hand and swollen index finger. She has not been able to receive her dialysis due to concern for infection on right hand. Review of Systems Review of Systems: All systems reviewed & are unremarkable except as noted in HPI & below Physical Exam Physical Exam: Constitutional: Patient resting comfortably, tearful affect obese calm and cooperative Eyes: Pupils equal round reactive to light, extraocular muscle motions intact bilaterally, anicteric sclerae Neck: No abnormality detected Respiratory: Chest expansion symmetric, breath sounds vesicular bilaterally no added lung sounds on auscultation Cardiovascular: Regular rate and rhythm, heart sounds dual, no murmurs rubs skips or gallops Gastrointestinal: Abdomen soft nontender, no masses detected, no organomegaly Integumentary: Patient with erythematous rash emanating from dorsum of right hand. Remaining 2 fingers are red hot swollen and tender Results & Data Vital Signs (Past 12 Hours) Vital Signs Temp Pulse Pulse Resp BP Pulse Ox 07/02/19 07:26 87 07/02/19 07:11 36.8 C 88 18 99/56 L 94 07/02/19 04:00 36.7 C 89 20 126/69 90 07/02/19 02:05 103 H 07/01/19 23:48 36.9 C 94 H 18 92 07/01/19 23:26 142/78 H 07/01/19 22:20 93 H 07/01/19 21:29 95/61 L PG Care Time/CCT Total # of Minutes Spent Total Time Spent with Patient: Total time spent is greater than 50% in coordination of care (as documented) at patient's floor/unit and/or counseling patient: Resident Activity Tracking Resident Involvement: Resident Care Provided Care Provided: Adult [facility] Medicine
--- NOTE | 2019-07-02 10:41 | Nephrology Consultation ---
Date of Consultation July 02, 2019 Assessment & Plan (1) End-stage renal disease on hemodialysis: -- ESRD on HD TTS in [facility] -- Volume status & electrolyte balance acceptable. No acute indication for HD today -- R upper arm brachiocephalic AVF evaluated this am. No surrounding erythema. + bruit. No need for temporary dialysis catheter at this time -- Will schedule HD for am. Orders placed in EMR and HD RN notified (2) Ischemic ulcer: -- On IV Daptomycin and Ertapenem. Dose adjusted per pharmacy -- Await Orthopedic surgery input (3) Hypertension: -- Blood pressure is relatively low but asymptomatic. Patient reports that she still makes a small amount of urine. Continue Metoprolol and loop diuretic (4) Atrial fibrillation: -- On warfarin therapy (5) Diabetes mellitus, type 2: History of Present Illness Reason for Consultation: ESRD Attending Physician: Randy Reyes, DO History of Present Illness Mrs. Ardon is a 58 year old white female who is seen at the request of Dr. Reyes to provide inpatient HD and assist w/ medical management. Medical information in the EMR was reviewed today and is summarized as follows: Mrs. Ardon has a h/o AODM, HTN, hypothyroidism, atrial fibrillation on anticoagulation therapy, shingles and CVA. She has ESRD and dialyzes TTS in [facility]. Mrs. Ardon has a R arm brachiocephalic AVF. She developed osteomyelitis involving the index and middle finger of her R hand. Ultimately she required amputation of these fingers. The surgical incision has been slow to heal and patient has developed a new ulcerative lesion on the dorsum of her R hand. Mrs. Ardon has been admitted to [facility] for orthopedic consultation, IV antibiotic therapy and inpatient HD. Allergies Allergy/AdvReac Type Severity Reaction Status Date / Time oxycodone Allergy Intermediate HIVES,RASH Verified 03/24/19 16:46 Sulfa (Sulfonamide Allergy Intermediate HIVES,RASH Verified 03/24/19 16:46 Antibiotics) cephalexin Allergy Mild HIVES Verified 03/24/19 16:46 Penicillins Allergy Mild RASH Verified 03/24/19 16:46 Dyazide Allergy Unknown UNKNOWN Verified 05/08/18 11:24 hydrochlorothiazide Allergy Unknown UNKNOWN Verified 03/24/19 16:46 Sulfonylureas Allergy Unknown UNKNOWN Verified 03/24/19 16:46 triamterene Allergy Unknown UNKNOWN Verified 03/24/19 16:46 CARBONIC Allergy Unknown UNKNOWN Uncoded 03/24/19 16:46 Home Medications Home Medications Medication Instructions Recorded Confirmed Type Pieter Silver Protectant 1 applic TOPICAL BID 03/24/19 History lidocaine-prilocaine 1 applic TOPICAL DIRECTED PRN 03/24/19 03/24/19 History acetaminophen 500 mg PO Q6 PRN MDD 3000 07/01/19 07/01/19 History aspirin 81 mg PO DAILY 07/01/19 07/01/19 History bisacodyl 5 mg PO 07/01/19 History bisacodyl 10 mg VA DAILY PRN 07/01/19 07/01/19 History calcium carbonate [Tums] PO HS 07/01/19 History cholecalciferol (vitamin D3) 2,000 unit PO DAILY 07/01/19 07/01/19 History docusate sodium 100 mg PO BID 07/01/19 07/01/19 History insulin glargine 20 unit SUBCUT BID 07/01/19 07/01/19 History insulin lispro 7 - 9 unit SUBCUT BID 07/01/19 07/01/19 History metoprolol tartrate 25 mg PO BID 07/01/19 07/01/19 History polyethylene glycol 3350 17 g PO DAILY 07/01/19 07/01/19 History pramipexole 0.25 mg PO HS 07/01/19 07/01/19 History sertraline 37.5 mg PO DAILY 07/01/19 07/01/19 History sevelamer carbonate 800 mg PO TIDM 07/01/19 07/01/19 History warfarin 3 mg PO DAILY 07/01/19 07/01/19 History Patient History Medical History Ischemic ulcer Restless leg syndrome Hypothyroidism Cellulitis of right hand Diabetes Atrial fibrillation Azotemia End-stage renal disease on hemodialysis (Chronic) Anemia Ischemic ulcer Hypertension (Chronic) AV fistula Diabetes mellitus, type 2 Hemodialysis patient Hyperlipidemia Hypothyroidism MRSA (methicillin resistant Staphylococcus aureus) Shingles Stroke Surgical History H/O section History of cholecystectomy History of hand surgery Family History Unknown Diabetes Social History Preferred Language: Lao Communication Ability: Effective Skin Piler Required: No Beliefs That Will Affect Care: None marital status: Current Living Situation: Custodial Other Information That Helps Us Care for You: No Feels Safe at Home: Yes Safety Concerns: Feels Safe At This Time Smoking Status: Former smoker Smoking End Date: 2008 ; Hx Alcohol Use: Yes Hx Substance Use: No Review of Systems Constitutional: + weakness; no fever Eyes: no worsening vision and no problem reported Ear, Nose, Mouth, Throat: no problem reported Respiratory: no cough and no dyspnea Cardiovascular: no chest pain, no palpitations and no edema Gastrointestinal: no abdominal pain, no nausea, no vomiting and no diarrhea/loose stools Genitourinary: no dysuria and no hematuria Musculoskeletal: no back pain Integumentary: no rash Neurologic: no falls, no dizziness and no confusion Physical Exam Constitutional: + ill appearing and + obese Eyes: PERRL, conjunctivae normal, anicteric sclerae ENMT: external ear and nose normal, oropharynx normal Neck: trachea midline, no thyromegaly Respiratory: normal respiratory effort, lungs clear to auscultation Cardiovascular: RRR, no murmur, no edema Extremities: + AV fistula (no erythema. AVF + bruit) Gastrointestinal (Abdomen): normal bowel sounds, soft, nontender, no hepatosplenomegaly Musculoskeletal: no cyanosis or clubbing, extremities motor strength 5/5 Skin: index and middle fingers of R hand have been amputated. Ring finger R hand is swollen & erythematous. 2 cm ulcerative lesion R hand draining purulent material Neurologic: awake; not confused Results & Data Vital Signs (Past 12 Hours) Vital Signs Temp Pulse Pulse Resp BP Pulse Ox 07/02/19 07:26 87 07/02/19 07:11 36.8 C 88 18 99/56 L 94 07/02/19 04:00 36.7 C 89 20 126/69 90 07/02/19 02:05 103 H 07/01/19 23:48 36.9 C 94 H 18 92 07/01/19 23:26 142/78 H Laboratory Results Laboratory Tests 07/02/19 07/02/19 06:14 06:14 WBC 9.25 Hgb 8.7 L Hct 27.5 L Plt Count 254 Sodium 134 L Potassium 4.9 Chloride 98 Carbon Dioxide 26 BUN 90 H Creatinine 6.61 H* D Glucose 140 H Alkaline Phosphatase 150 H Albumin 2.3 L PG Care Time/CCT Total # of Minutes Spent Total Time Spent with Patient: Total time spent is greater than 50% in coordination of care (as documented) at patient's floor/unit and/or counseling patient:
--- NOTE | 2019-07-02 11:10 | Consultation ---
Date of Consultation July 02, 2019 Assessment & Plan (1) Cellulitis of right hand: Pt with acutely infected R hand wound. Hx of RUE brachiocephalic AVF for HD, as well as subsequent steal syndrome requiring Distal Revascularization with Interval Ligation(DRIL) procedure in remote past. Patentcy of BPG has been regularly eval by US. Access US performed on arrival indicates patent BPG and patent AVF. Exam reveals adequate doppler palmar arch signals, better in radial than ulnar. No indications for vascular surgical intervention at this time. Recommend pt undergo HD as scheduled per nephrology and have R hand wound/infection evaluated by orthopedics. Please call if needed. Also discussed with pt's son in room today. Patient was seen, examined, and chart reviewed. Agree with exam and treatment plan of the Vascular PA. Present on Admission?: Yes History of Present Illness Reason for Consultation: RUE brachial BPG, AVF Attending Physician: Randy Reyes, DO History of Present Illness 58 yo f with multiple medical problems, well known to Dr Meza for vascular HD access and previous surgery, admitted with acute infection of R hand/fingers, seen in consultation today. Pt is poor historian and demonstrates moderate dementia. She has undergone a RUE DRIL procedure d/t vascular access steal syndrome a few yrs ago. She also underwent revision of her R brachiocephalic AVF anastomosis in the past as well, although her original AVF was created at another facility. Unfortunately, she later developed infection in R hand/fingers that required amputation of 2nd and 3rd fingers. This occurred at [facility] according to her son. Pt admits severe pain in R hand and occasional nausea over past 2 weeks. Per son, pt has dementia and cannot reliably answer questions. Pt denies other complaints. According to son, pt has had worsening infection in R hand over past few days, but believes she has had R hand wound for months. Hemodialysis access US demonstrates patent AVF and patent brachial-brachial vein bypass. Allergies Allergy/AdvReac Type Severity Reaction Status Date / Time oxycodone Allergy Intermediate HIVES,RASH Verified 03/24/19 16:46 Sulfa (Sulfonamide Allergy Intermediate HIVES,RASH Verified 03/24/19 16:46 Antibiotics) cephalexin Allergy Mild HIVES Verified 03/24/19 16:46 Penicillins Allergy Mild RASH Verified 03/24/19 16:46 Dyazide Allergy Unknown UNKNOWN Verified 05/08/18 11:24 hydrochlorothiazide Allergy Unknown UNKNOWN Verified 03/24/19 16:46 Sulfonylureas Allergy Unknown UNKNOWN Verified 03/24/19 16:46 triamterene Allergy Unknown UNKNOWN Verified 03/24/19 16:46 CARBONIC Allergy Unknown UNKNOWN Uncoded 03/24/19 16:46 Home Medications Home Medications Medication Instructions Recorded Confirmed Type Selan Silver Protectant 1 applic TOPICAL BID 03/24/19 History lidocaine-prilocaine 1 applic TOPICAL DIRECTED PRN 03/24/19 03/24/19 History acetaminophen 500 mg PO Q6 PRN MDD 3000 07/01/19 07/01/19 History aspirin 81 mg PO DAILY 07/01/19 07/01/19 History bisacodyl 5 mg PO 07/01/19 History bisacodyl 10 mg VA DAILY PRN 07/01/19 07/01/19 History calcium carbonate [Tums] PO HS 07/01/19 History cholecalciferol (vitamin D3) 2,000 unit PO DAILY 07/01/19 07/01/19 History docusate sodium 100 mg PO BID 07/01/19 07/01/19 History insulin glargine 20 unit SUBCUT BID 07/01/19 07/01/19 History insulin lispro 7 - 9 unit SUBCUT BID 07/01/19 07/01/19 History metoprolol tartrate 25 mg PO BID 07/01/19 07/01/19 History polyethylene glycol 3350 17 g PO DAILY 07/01/19 07/01/19 History pramipexole 0.25 mg PO HS 07/01/19 07/01/19 History sertraline 37.5 mg PO DAILY 07/01/19 07/01/19 History sevelamer carbonate 800 mg PO TIDM 07/01/19 07/01/19 History warfarin 3 mg PO DAILY 07/01/19 07/01/19 History Patient History Medical History Ischemic ulcer Restless leg syndrome Hypothyroidism Cellulitis of right hand Diabetes Atrial fibrillation Azotemia End-stage renal disease on hemodialysis (Chronic) Hypertension (Chronic) AV fistula Anemia Diabetes mellitus, type 2 Hemodialysis patient Hyperlipidemia Hypothyroidism Ischemic ulcer MRSA (methicillin resistant Staphylococcus aureus) Shingles Stroke Surgical History AV fistula H/O section History of cholecystectomy History of hand surgery Family History Unknown Diabetes Social History Preferred Language: Martiniquais Communication Ability: Impaired 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 Admits R hand pain and occasional nausea over past 2 weeks. ) Physical Exam Constitutional: WD/WN, vitals as above well developed, well nourished, + ill appearing (chronically), + obese, + disheveled, cooperative and comfortable; not in distress and not combative Eyes: PERRL, conjunctivae normal, anicteric sclerae EOM intact bilaterally ENMT: external ear and nose normal, oropharynx normal Ears: no hearing impairment Nose: no nasal discharge Neck: trachea midline, no thyromegaly no tracheal deviation, no neck crepitus and neck nontender Respiratory: normal respiratory effort, lungs clear to auscultation able to speak in complete sentences; does not use accessory muscles and no cough Auscultation: lungs clear to auscultation bilaterally and + diminished lung sounds; no rhonchi and no wheezes Cardiovascular: Rate/Rhythm: + irregularly irregular Heart Sounds: no gallop Vessels: femoral pulses present, radial pulses present (R wrist/hand with good doppler radial and palmar arch) and ulnar pulses present (R wrist and palmar arch with weak signal.); no carotid bruit, no femoral bruit and + abnormal peripheral pulses Extremities: + AV fistula (+ thrill/bruit RUE AVF); + abnormal capillary refill (decreased) and no pedal edema Chest (Breasts): Chest: normal inspection of chest Gastrointestinal (Abdomen): normal bowel sounds, soft, nontender, no hepatosplenomegaly Inspection/Auscultation: abdomen normal to inspection, normal bowel sounds and + abdominal edema; abdomen not distended and no abdominal surgical drain present Percussion/Palpation: abdomen soft; abdomen nontender, no guarding, abdomen not rigid and no abdominal mass Musculoskeletal: no cyanosis or clubbing, extremities motor strength 5/5 Head/Neck/Chest: normocephalic, head atraumatic and neck supple Extremities: + amputation noted (R fingers #2/3); + extremities abnormal to inspection (LUE and LLE contracted, with chronic weakness.) and no clubbing Skin: no rashes, warm and dry normal turgor, + induration, + wound (R dorsal hand wound with+wet eschar, erythema, exquisite tenderness, warmth), + erythema and + eschar; no rashes, no excoriations and no mottling Neurologic: + focal motor deficit (L hand/leg, chronic), awake and + confused Speech / Cognition: no expressive aphasia and no receptive aphasia Motor/Sensory: no tremor and no sensory deficit Cranial Nerves: EOM intact bilaterally, normal facial strength and tongue midline Psychiatric: Orientation: alert, oriented to person and cooperative Apperance: appropriately dressed Affect: + flat affect Thought Process: + thought process not clear or coherent Cognition: attention grossly intact and language grossly intact; + recent memory not intact and + remote memory not intact Estimated Intelligence: average estimated intelligence Results & Data Vital Signs (Past 12 Hours) Vital Signs Temp Pulse Pulse Resp BP Pulse Ox 07/02/19 07:26 87 07/02/19 07:11 36.8 C 88 18 99/56 L 94 07/02/19 04:00 36.7 C 89 20 126/69 90 07/02/19 02:05 103 H 07/01/19 23:48 36.9 C 94 H 18 92 07/01/19 23:26 142/78 H
--- NOTE | 2019-07-02 14:25 | Consultation Report ---
DATE OF CONSULTATION: 07/02/2019 ORTHOPEDIC CONSULT REASON FOR CONSULT: Infection, right hand. HISTORY OF PRESENT ILLNESS: The patient is a 58-year-old white female known to our practice who is status post amputation of the 2nd,3rd fingers of her right hand and irrigation and debridement of some open wounds. She has had some chronic nonhealing wounds since that time on the same hand and was seen in [facility] yesterday afternoon with cellulitis and the chronic nonhealing wound with purulence. The patient who was on dialysis did not receive a dialysis due to worries about her fistula being affected by ongoing infection, etc. They contacted Dr. Meza and the patient was then transferred down to [facility] and was admitted by the medicine service, started on antibiotics and we have been asked to see her for her nonhealing wound on the right hand. She is currently sitting in her chair at the bedside and appears comfortable at this time. She does state that she is having pain in the right hand and has no new complaints. PAST MEDICAL HISTORY: End-stage renal disease on hemodialysis, atrial fibrillation on chronic anticoagulation, diabetes mellitus, hypothyroidism, restless leg syndrome, history of shingles, hyperlipidemia, hypertension, anemia, CVA. PAST SURGICAL HISTORY: Cholecystectomy, multiple amputations of the fingers of the right hand, in the past. FAMILY HISTORY: Noncontributory. SOCIAL HISTORY: The patient is , currently resides in a nursing facility, is a former smoker who stopped in 2008 and drinks alcohol on occasion. MEDICATIONS: Acetaminophen 500 mg p.o. q. 6 hours p.r.n., aspirin 81 mg p.o. daily, bisacodyl p.r.n., calcium carbonate p.o. at bedtime, vitamin D3 2000 units p.o. daily, Colace 100 mg p.o. b.i.d., insulin Glargine 20 units subcutaneous b.i.d., insulin lispro 79 units subcutaneous b.i.d., Lidoderm patch applied topically as directed, metoprolol 25 mg p.o. b.i.d., polyethylene glycol 17 grams p.o. daily, pramipexole 0.25 mg p.o. at bedtime, silver dressing 1 application topically b.i.d., sertraline 37.5 mg p.o. daily, sevelamer carbonate 800 mg p.o. t.i.d., warfarin 3 mg p.o. daily. ALLERGIES: OXYCODONE, SULFA, CEPHALEXIN, PENICILLIN, DYAZIDE, HYDROCHLOROTHIAZIDE, SULPHONYLUREAS AND TRIAMTERENE, AND SOMETHING CALLED CARBONIC. REVIEW OF SYSTEMS: As per admitting history and physical. PHYSICAL EXAMINATION: EXTREMITIES: On examination of the patient's right hand, she has a small dressing noted on the right hand which is removed. There is some silver dressing on it which is I can peel back not completely and the ulceration is over the dorsum of the hand near the MTP joint of the fourth finger. The fourth finger itself is erythematous and tender on palpation. The patient is very reluctant to let me palpate the fourth and fifth fingers due to pain. What I can see of the ulceration that she has got an area of darkened, hardened eschar proximally with an area that is approximately 2 cm x 1.5 cm across that has a purulent debris without odor. The distal portion of the dressing is stuck to her hand and have no sealing present to soften it and the patient will not let me take the dressing off which causes her further discomfort. She has minimal range of motion of her fourth finger and she states that the fifth finger does hurt, but not as bad as before. She has no pain in her thumb essentially and has good range of motion of her wrist which is nontender throughout range of motion. Decreased sensation through both fingers is noted and she has a noted area at the distal tip of the fifth finger that appears to be eschar from poor blood flow. ASSESSMENT AND PLAN: Chronic open wound, dorsum of the right hand. I had just received word from the nursing staff that she is growing a staph species of a culture that was taken from the hand at [facility] and there was some question of positive blood cultures as well. The patient states that she had an MRI at [facility] of which this was confirmed not to be true. We will plan to do an MRI without contrast of the right hand today. With the way the wound appears, at this point in time, she will likely need an irrigation and debridement. Current INR that was drawn yesterday was 1.1. I will discuss this case with Dr. Izaguirre who is on-call today and for the weekend and have him review her wound and her films and plan for likely I and D this weekend. I also ordered a wound care consult for wound care nursing to adjust or change any type of dressings that might be needed. MARY
[2019-07-02] MEDS: ACETAMINOPHEN 325 MG TAB PO PRN (16:35)
--- NOTE | 2019-07-02 16:57 | Infectious Disease Consult ---
Date of Consultation July 02, 2019 Assessment & Plan (1) Cellulitis of right hand: 58-year-old patient with infection of right hand in the setting of severe peripheral vascular disease, with patent arterial system on exam, now with worsening infection. Agree with need for probable surgical debridement. Current IV antibiotics appropriate pending final culture results. Will follow. History of Present Illness Reason for Consultation: Chronic wound infection Attending Physician: Randy Reyes DO History of Present Illness 58-year-old female with end-stage renal disease, recently hospitalized for right hand infection, status post surgical debridement, with prior cultures positive for E. coli. Has had chronic open wound of her right hand, now presents with evidence of worsening infection, cultures now growing staph aureus. Pain currently 6 out of 10 in intensity. No current fever. Has been seen by ort hopedic surgery, and plans for surgical debridement. Allergies Allergy/AdvReac Type Severity Reaction Status Date / Time oxycodone Allergy Intermediate HIVES,RASH Verified 03/24/19 16:46 Sulfa (Sulfonamide Allergy Intermediate HIVES,RASH Verified 03/24/19 16:46 Antibiotics) cephalexin Allergy Mild HIVES Verified 03/24/19 16:46 Penicillins Allergy Mild RASH Verified 03/24/19 16:46 Dyazide Allergy Unknown UNKNOWN Verified 05/08/18 11:24 hydrochlorothiazide Allergy Unknown UNKNOWN Verified 03/24/19 16:46 Sulfonylureas Allergy Unknown UNKNOWN Verified 03/24/19 16:46 triamterene Allergy Unknown UNKNOWN Verified 03/24/19 16:46 CARBONIC Allergy Unknown UNKNOWN Uncoded 03/24/19 16:46 Home Medications Home Medications Medication Instructions Recorded Confirmed Type Pieter Silver Protectant 1 applic TOPICAL BID 03/24/19 History lidocaine-prilocaine 1 applic TOPICAL DIRECTED PRN 03/24/19 03/24/19 History acetaminophen 500 mg PO Q6 PRN MDD 3000 07/01/19 07/01/19 History aspirin 81 mg PO DAILY 07/01/19 07/01/19 History bisacodyl 5 mg PO 07/01/19 History bisacodyl 10 mg W[place] DAILY PRN 07/01/19 07/01/19 History calcium carbonate [Tums] PO HS 07/01/19 History cholecalciferol (vitamin D3) 2,000 unit PO DAILY 07/01/19 07/01/19 History docusate sodium 100 mg PO BID 07/01/19 07/01/19 History insulin glargine 20 unit SUBCUT BID 07/01/19 07/01/19 History insulin lispro 7 - 9 unit SUBCUT BID 07/01/19 07/01/19 History metoprolol tartrate 25 mg PO BID 07/01/19 07/01/19 History polyethylene glycol 3350 17 g PO DAILY 07/01/19 07/01/19 History pramipexole 0.25 mg PO HS 07/01/19 07/01/19 History sertraline 37.5 mg PO DAILY 07/01/19 07/01/19 History sevelamer carbonate 800 mg PO TIDM 07/01/19 07/01/19 History warfarin 3 mg PO DAILY 07/01/19 07/01/19 History Patient History Medical History Ischemic ulcer Restless leg syndrome Hypothyroidism Cellulitis of right hand Diabetes Atrial fibrillation Azotemia End-stage renal disease on hemodialysis (Chronic) Anemia Ischemic ulcer Hypertension (Chronic) AV fistula Diabetes mellitus, type 2 Hemodialysis patient Hyperlipidemia Hypothyroidism MRSA (methicillin resistant Staphylococcus aureus) Shingles Stroke Surgical History H/O section History of cholecystectomy History of hand surgery Family History Unknown Diabetes Social History Preferred Language: Taiwanese Communication Ability: Impaired Compliance Engineer Required: No Beliefs That Will Affect Care: None marital status: Current Living Situation: Jail Other Information That Helps Us Care for You: No Feels Safe at Home: Yes Safety Concerns: Feels Safe At This Time Smoking Status: Former smoker Smoking End Date: 2008 ; Hx Alcohol Use: Yes Hx Substance Use: No Review of Systems Review of Systems: All systems reviewed & are unremarkable except as noted in HPI & below Physical Exam Constitutional: WD/WN, vitals as above comfortable; no acute distress Eyes: PERRL, conjunctivae normal, anicteric sclerae ENMT: external ear and nose normal, oropharynx normal Neck: trachea midline, no thyromegaly neck nontender Respiratory: normal respiratory effort, lungs clear to auscultation normal percussion; does not use accessory muscles Cardiovascular: Rate/Rhythm: regular rate and regular rhythm Heart Sounds: normal S1 and normal S2; no gallop, no murmur and no cardiac rub Vessels: normal peripheral pulses; no JVD Gastrointestinal (Abdomen): normal bowel sounds, soft, nontender, no hepatosplenomegaly Musculoskeletal: no cyanosis or clubbing, extremities motor strength 5/5 Spine: thoracic spine normal to inspection and lumbar spine normal to inspection; no cervical spinal tenderness Skin: normal turgor and + erythema (Right hand with some purulence) Neurologic: patellar DTR's 2+ bilat, sensation intact no focal motor deficits Psychiatric: A+Ox3, euthymic affect Orientation: cooperative Lymphatic: no cervical or axillary lymphadenopathy no inguinal lymphadenopathy Results & Data Vital Signs (Past 12 Hours) Vital Signs Temp Pulse Pulse Resp BP Pulse Ox 07/02/19 11:55 36.8 C 87 20 110/82 94 07/02/19 07:26 87 07/02/19 07:11 36.8 C 88 18 99/56 L 94 Laboratory Results Short CBC 07/01/19 07/01/19 07/02/19 Range/Units 20:26 21:45 06:14 WBC Cancelled 13.39 H 9.25 Hgb Cancelled 8.6 L 8.7 L Hct Cancelled 27.5 L 27.5 L Plt Count Cancelled 234 254 BMP 07/01/19 07/02/19 20:26 06:14 Sodium 133 L 134 L Potassium 4.5 4.9 Chloride 96 L 98 Carbon Dioxide 24 26 BUN 86 H 90 H Creatinine 6.00 H* 6.61 H* D Glucose 147 H 140 H Calcium 8.9 8.7 Liver Function 07/02/19 Range/Units 06:14 Total Bilirubin 0.4 (0.2-1) mg/dl AST 17 (15-37) U/L ALT 14 (12-78) U/L Alkaline Phosphatase 150 H (45-117) U/L Albumin 2.3 L (3.4-5.0) gm/dl Diagnostic Findings Microbiology 07/01/19 19:52 Hand,Right Gram Stain - Final 07/01/19 19:52 Hand,Right Wound Culture - Preliminary Staphylococcus aureus DOPPLER ULTRASOUND RIGHT UPPER EXTREMITY HEMODIALYSIS ACCESS CLINICAL HISTORY: Right upper extremity wound. COMPARISON STUDY: Right upper extremity vascular ultrasound dated 03/27/2019. FINDINGS: Real-time, grayscale, and color Doppler sonography of the right upper extremity is performed to assess the patient's AV fistula. The right upper extremity fistula is patent. Velocities within the fistula measure up to 255 cm/s. No intraluminal thrombus is identified. There is no adjacent hematoma. The distance from the skin to the fistula at the level of the antecubital fossa is 7 mm. The caliber of the fistula at this level is 1.3 cm. A bypass in the distal right arm is patent with velocities measuring up to 50 cm/s. The right brachial artery and the right cephalic vein are patent. IMPRESSION: 1. Patent right upper stomach AV fistula as above. 2. Patent right upper extremity bypass as above. PG Care Time/CCT Total # of Minutes Spent Total Time Spent with Patient: Total time spent is greater than 50% in coordination of care (as documented) at patient's floor/unit and/or counseling patient:
[2019-07-02] MEDS ORDERED: MoRPHine SULFATE 2 MG/ML CARP IV PRN (17:29)
[2019-07-02] MEDS: WARFARIN SOD 3 MG TAB PO SCH (17:30)
[2019-07-02] MEDS: CIPROFLOXACIN 400 MG/200 ML BAG IV SCH (18:36)
--- NOTE | 2019-07-02 21:11 | Magnetic Resonance Report ---
MR hand RT wo con CLINICAL HISTORY: 58 years-old Female presenting with history of injury with fall, finger injuries, h istory of finger amputations, redness and swelling, r/o abscess/osteomyelitis. TECHNIQUE: Multisequence, multiplanar MR imaging of the right hand was performed without the use of i ntravenous contrast. IV contrast: None. COMPARISON: Plain radiographs from 03/31/2019. FINDINGS: Localizer images: Unremarkable. The examination was limited by incomplete acquisition of several sequences due to patient intolerance . Postsurgical changes of amputation of the second and third fingers. Fluid noted along the volar aspec t of the fourth finger. T2 hyperintense, T1 hypointense bone marrow signal of the base of the proxima l phalanx of the fourth finger. The remainder of the phalanges of the fourth finger are preserved. Fl uid does not appear to be limited to the tendon sheath of the flexor tendons of the fourth finger tho ugh there is some fluid component within the tendon sheath. Soft tissue defect along the dorsum of the hand overlying the head of the fourth metacarpal. Abnormal bone marrow signal intensity of the head of the fourth metacarpal similar to the base of the proxima l phalanx of the fourth finger. The fifth metacarpal is preserved. Surgical absence of the second and third metacarpals. Tendons within the carpal tunnel are grossly normal appearing. Carpal bones are also grossly normal. Distal radius and ulna normal. The first finger is also normal. Edema within the musculature of the hand. IMPRESSION: 1. Findings highly suspicious for osteomyelitis of the head of the fourth metacarpal and base of the proximal phalanx of the fourth finger. This distribution is concerning for septic arthritis of the f ourth MCP joint. 2. Fluid along the volar aspect of the proximal phalanx of the fourth finger. Sterility cannot be co nfirmed. This may in part involve the tendon sheath of the flexor tendons of the fourth finger. 3. Tenosynovitis of the flexor tendons of the fourth finger. Infectious tenosynovitis not excluded. 4. Postsurgical changes of resection of the second and third metacarpals and second and third finger s. 5. Soft tissue wound along the dorsum of the hand overlying the fourth MCP joint. Electronically signed by: Elder Smith M.D. 07/02/2019 9:08 PM
[2019-07-02] MEDS: MoRPHine SULFATE 2 MG/ML CARP IV PRN (21:26)
[2019-07-02] MEDS: EUCERIN CR 120 GM JAR EXT SCH (21:30)
[2019-07-02] MEDS: PRAMIPEXOLE DIHYDROCHLO 0.25 MG TAB PO SCH (21:31)
[2019-07-03] MEDS: MoRPHine SULFATE 2 MG/ML CARP IV PRN ×6 (00:23→22:37)
[2019-07-03] MEDS: DiphenhydrAMINE HCL 50 MG/ML VIAL IV PRN ×2 (00:24→06:11)
[2019-07-03] MEDS: LEVOTHYROXINE SODIUM 125 MCG TABLET PO SCH (06:08)
[2019-07-03] MEDS ORDERED: HEPARIN SOD (PORCINE) 1000 UNIT/ML 10 ML VIAL IV SCH (07:00)
[2019-07-03] MEDS ORDERED: EPOETIN ALFA 10,000 UNITS/ML VIAL IV SCH (07:00)
[2019-07-03] MEDS ORDERED: SODIUM CHLORIDE 0.9% 1000ML 1,000 ML IV PRN (07:00)
[2019-07-03 07:07] LABS: Basophils # (auto) 0.02 K/uL (0-0.2); Basophils % (auto) 0.2 %; Eosinophils # (auto) 0.12 K/uL (0-0.5); Eosinophils % (auto) 1.1 %; Hemoglobin 8.9 g/dL (12.0-16.0); Immature Granulocytes # (auto) 0.02 K/uL (0.00-0.02); Immature Granulocytes % (auto) 0.2 %; Lymphocytes # (auto) 1.83 K/uL (1.2-3.4); Lymphocytes % (auto) 16.2 %; Mean Corpuscular Hgb Conc 31.8 g/dL (32-36); Mean Corpuscular Volume 95.6 fL (80-100); Mean Platelet Volume 10.2 fL (7.4-10.4); Monocytes # (auto) 0.99 K/uL (0.11-0.59); Monocytes % (auto) 8.8 %; Neutrophils # (auto) 8.29 K/uL (1.4-6.5); Neutrophils % (auto) 73.5 %; Platelet Count 282 K/uL (130-400); RDW Coefficient of Variation 16.1 % (11.5-14.5); RDW Standard Deviation 56.4 fL (36.4-46.3); Red Blood Count 2.93 M/uL (4.2-5.4); White Blood Count 11.27 K/uL (4.8-10.8)
[2019-07-03 07:49] LABS: Albumin Globulin Ratio 0.4 (0.9-2); Albumin Level 2.5 gm/dl (3.4-5.0); BUN Creatinine Ratio 13.2 (10-20); Bilirubin,Total 0.4 mg/dl (0.2-1); Calcium 8.9 mg/dl (8.5-10.1); Creatinine Clr Calc Pharmacy 9.2 ml/min; Est GFR (Non-African American) 5.2; Globulin 5.6 gm/dl (2.5-4.0); Potassium 5.1 mmol/L (3.5-5.1); Total Protein 8.1 gm/dl (6.4-8.2)
[2019-07-03] MEDS: HEPARIN SOD (PORCINE) 1000 UNIT/ML 10 ML VIAL IV SCH ×2 (09:17→09:18)
[2019-07-03] MEDS: INSULIN ASPART 100 UNITS/ML 3 ML PEN SC SCH ×4 (09:33→21:14)
[2019-07-03] MEDS: POLYETHYLENE (MIRALAX) 17 GM PACK PO SCH (09:34)
[2019-07-03] MEDS: SEVELAMER HCL 800 MG TABLET PO SCH ×3 (09:35→17:48)
[2019-07-03] MEDS: ASPIRIN 81 MG ECTAB PO SCH (09:35)
[2019-07-03] MEDS: METOPROLOL TARTRATE 25 MG TAB PO SCH ×3 (09:36→19:49)
[2019-07-03] MEDS: INSULIN GLARGINE SOLOSTAR 100 UNITS/ML 3 ML PEN SC SCH (09:45)
[2019-07-03] MEDS: EUCERIN CR 120 GM JAR EXT SCH ×2 (09:45→19:48)
--- NOTE | 2019-07-03 12:08 | Dialysis Progress Note ---
Date of Service July 03, 2019 Assessment & Plan (1) End-stage renal disease on hemodialysis: 58 y o F with ESRd on HD TTS at [facility]. Admitted with rt hand ischemic ulcer, On IV Daptomycin and Ertapenem. -- Volume status & electrolyte balance acceptable. No acute indication for H D today -- R upper arm brachiocephalic AVF evaluated this am. No surrounding erythema. AVF functioning well for HD -- tolerating HD Will follow (2) Ischemic ulcer: (3) Hypertension: (4) Atrial fibrillation: -- On warfarin therapy (5) Diabetes mellitus, type 2: Subjective Kortney was seen and examined during dialysis this morning. Overall tolerating dialysis well, blood pressure stable. She continues to complain of pain in her right hand. Review of Systems Constitutional: as per Subjective / HPI; no fever, no chills, no weakness and no weight loss Eyes: no problem reported Respiratory: no cough, no dyspnea and no hemoptysis Cardiovascular: no chest pain, no syncope and no edema Gastrointestinal: no abdominal pain, no nausea and no vomiting Neurologic: no generalized weakness, no tingling and no numbness Psychiatric: as per Subjective / HPI; no behavioral changes Physical Exam Constitutional: well developed and well nourished; no acute distress Respiratory: normal respiratory effort, lungs clear to auscultation Cardiovascular: RRR, no murmur, no edema Neurologic: moves all extremities and awake; not confused Psychiatric: A+Ox3, euthymic affect Results & Data Vital Signs (Past 12 Hours) Vital Signs Temp Pulse Pulse Resp BP BP Pulse Ox 07/03/19 12:00 37.0 C 86 88 16 170/85 H 142/64 H 96 07/03/19 11:40 81 149/77 H 07/03/19 11:20 88 142/64 H 07/03/19 11:00 75 134/71 07/03/19 10:44 80 157/67 H 07/03/19 10:20 86 143/65 H 07/03/19 10:00 76 150/54 H 07/03/19 09:40 79 156/74 H 07/03/19 09:20 76 139/73 07/03/19 09:00 75 140/74 07/03/19 08:30 75 144/66 H 07/03/19 08:18 36.6 C 75 07/03/19 07:30 36.9 C 77 18 118/64 92 07/03/19 07:26 80 07/03/19 05:40 86 07/03/19 04:00 36.9 C 80 20 123/68 95
[2019-07-03] MEDS: NEPHROCAPS PO SCH (12:13)
[2019-07-03] MEDS: CHOLECALCIFEROL 1,000 UNITS TAB PO SCH (12:14)
--- NOTE | 2019-07-03 13:02 | Dialysis Progress Note ---
Date of Service July 03, 2019 Assessment & Plan (1) End-stage renal disease on hemodialysis: 58 y o F with ESRd on HD TTS at [facility]. Admitted with rt hand ischemic ulcer, On IV Daptomycin and Ertapenem. -- Volume status & electrolyte balance acceptable. No acute indication for H D today -- R upper arm brachiocephalic AVF evaluated this am. No surrounding erythema. AVF functioning well for HD -- tolerating HD Will follow (2) Ischemic ulcer: -- On IV Daptomycin and Ertapenem. Dose adjusted per pharmacy -- Await Orthopedic surgery input (3) Hypertension: -- Blood pressure is relatively low but asymptomatic. Patient reports that she still makes a small amount of urine. Continue Metoprolol and loop diuretic (4) Atrial fibrillation: -- On warfarin therapy (5) Diabetes mellitus, type 2: Subjective Kortney was seen and examined during dialysis this morning. Overall tolerating dialysis well, blood pressure stable. She continues to complain of pain in her right hand. Review of Systems Constitutional: as per Subjective / HPI; no fever, no chills, no weakness and no weight loss Psychiatric: as per Subjective / HPI; no behavioral changes Physical Exam Constitutional: well developed and well nourished; no acute distress Respiratory: normal respiratory effort, lungs clear to auscultation Cardiovascular: RRR, no murmur, no edema Neurologic: moves all extremities and awake; not confused Psychiatric: A+Ox3, euthymic affect Results & Data Vital Signs (Past 12 Hours) Vital Signs Temp Pulse Pulse Resp BP BP Pulse Ox 07/03/19 12:46 36.6 C 173/84 H 07/03/19 12:33 75 182/75 H 07/03/19 12:20 89 182/87 H 07/03/19 12:00 37.0 C 86 88 16 170/85 H 142/64 H 96 07/03/19 11:40 81 149/77 H 07/03/19 11:20 88 142/64 H 07/03/19 11:00 75 134/71 07/03/19 10:44 80 157/67 H 07/03/19 10:20 86 143/65 H 07/03/19 10:00 76 150/54 H 07/03/19 09:40 79 156/74 H 07/03/19 09:20 76 139/73 07/03/19 09:00 75 140/74 07/03/19 08:30 75 144/66 H 07/03/19 08:18 36.6 C 75 07/03/19 07:30 36.9 C 77 18 118/64 92 07/03/19 07:26 80 07/03/19 05:40 86 07/03/19 04:00 36.9 C 80 20 123/68 95
[2019-07-03] MEDS: BUMETANIDE 1 MG TAB PO SCH (13:09)
--- NOTE | 2019-07-03 15:24 | Pharmacy Report ---
Glycemic Control Progress Note - Date of Service July 03, 2019 - Scope Glycemic Pharmacist consulted for glycemic control to write orders per [facility] inpatient glycemic control protocol. - Objective Accuchecks BSG(last 24 hours):: 07/02/19 07/02/19 07/03/19 16:27 20:57 06:49 Glucose 107 H POC Glucose 80 122 H 07/03/19 07/03/19 07/03/19 06:59 07:26 11:04 Glucose POC Glucose 116 H 116 H 97 HbA1c:: Hemoglobin A1c 6.0 % (4.5-5.6) H 07/02/19 06:14 - Recent Pertinent Medications The patient is currently receiving: * Basal insulin: Lantus 10-20 units every 24 hours * Correctional Insulin: Novolog Correction per scale ACHS Goal Range: Low 110 mg/dL - High 140 mg/dL Correction Factor: 25 mg/dL/unit * Prandial insulin: Per carb ratio of 1 unit per 10 grams CHO consumed - Outpatient Anti-Diabetic Meds Lantus 20 units BID plus Humalog 7-9 units BID - Assessment & Plan ASSESSMENT: * See progress note from 07/01/19 for more background info, in short: * Pt receiving SQ basal bolus insulin regimen for hyperglycemia secondary to baseline DM (outpatient regimen on hold),stress/infection (on Daptomycin/ciprofloxacin). * Patient is currently receiving an average of 27 units of insulin per day * 15 units of basal insulin * 12 units of prandial/correctional insulin * BSGs ranging 80 - 146 mg/dl over the past 24hrs * Changes needed to insulin regimen: * AM Fasting BSG = 116 mg/dl. This is in goal range for patient based on inpatient targets and co-morbidities. Therefore Basal insulin will be adjusted. Patient received 7 units today because she is NPO. Will increase threshold to receive only 10 units and remove 15 unit entry. * Post-prandial BSGs are in range therefore no changes needed to CF/CR. * Total daily dose = ~25-30 units. PLAN FOR INPATIENT GLYCEMIC CONTROL: * Decreasing Lantus to 10 units SQ daily (15 units if BSG 130 mg/dL or greater) * Continuing correction factor of 25 mg/dl/unit * Continuing carb ratio of 1 unit per 10 grams CHO consumed * Continuing goal range of Low 110 mg/dL - High 140 mg/dL RECOMMENDATIONS FOR DISCHARGE: * Patient is HD patient therefore HbA1C is not always reliable. Recommend close follow up with physician and adjust insulin via blood glucose logs. * Please note that the plan above was derived based on current level of insulin resistance and hospital stress. These recommendations are appropriate for inpatient admission only. Plan of care upon discharge will need to be reassessed to avoid potential outpatient hypo/hyperglycemia. Thank you.
[2019-07-03] MEDS: WARFARIN SOD 3 MG TAB PO SCH (15:40)
[2019-07-03] MEDS: CIPROFLOXACIN 400 MG/200 ML BAG IV SCH (15:43)
--- NOTE | 2019-07-03 16:19 | Family Medicine Progress Note ---
Date of Service July 03, 2019 Assessment & Plan (1) Cellulitis of right hand: 58-year-old female with DM, A. fib, hypothyroid, RLS, on dialysis for ESRD transferred to [facility] for right hand infection now on Daptomycin, Ciprofloxacin previously on Vancomycin and linezolid OSH and previously failed imipenem cilastin therapy. Ortho has seen the patient and procedure planned for 07/04. Acute right hand infection - MRI results highly suspicious for osteomyelitis of the 4th metacarpal base, concern for septic arthritis, concern for infection of the tenosynovitis of the flexor tendon of the 4th digit - wound cultures grew MRSA from 07/01/2019 - no indications for vascular surgical intervention at this time - Daptomycin 450 mg IV Q48h, Ciprofloxacin 400 mg Q24h will determine EOT date after results of orthopaedic procedure - right hand wound/infection evaluated by orthopedics and debridement scheduled for 07/04 ESRD - Access US performed on arrival indicates patent BPG and patent AVF. - HD today (07/03) as scheduled per nephrology - continue Epoetin 10,000 Diabetic - glucose 107 today - A1C 6.0 (07/02) - on insulin sliding scale A. fib - on Warfarin w/ INR of 1.1 on arrival, will recheck and potentially increase dose of Warfarin after orthopaedic procedure Hypothyroid - take home Synthroid 250 mg RLS - continue Pramipexole .5 mg QHS FEN: dialysis diet DVT: Warfarin Dispo: pending orthopaedic procedure results and continued evaluation of right hand infection Supervising Physician Co-Signing Physician Notes I personally examined the patient and verified all niño points of history and exam, discussed case, and agree with decision making with Dr Pinedo. Hand hurts. more confused this afternoon - thinks she's in school and she's in a girls' dorm Vitals noted, in general she is awake and alert pleasant no distress. HEENT normocephalic atraumatic mucous membranes moist. Breathing is unlabored no accessory muscle use good effort. Right hand has missing fingers, as well as large erythematous fingers. no tracking erythema up arm Hand cellulitis/nonhealing wound. Continue broad antibiotics - given vascular disease/DM and duration of open wound in healthcare setting, while growing MRSA, have to assume polymicrobial/potential for pseudomonas, until proven otherwise. Reportedly has at least one blood culture positive, must treat as though it is real pending further speciation, covered with daptomycin -- this will likely match the hand culture we are seeing growth on. Appreciate vascular, orthopedic input - anticipate OR 07/04. End-stage renal disease on dialysiscontinue hemodialysis. appears to have tolerated well today DVT prophylaxiswarfarin (currently low INR, but since OR tomorrow, would wait until postop to titrate up) Subjective Somewhat disoriented when we saw her today. She thought we were in a girl's dormitory. She did not remember our morning discussion in the afternoon. She only asked about the procedure and what might happen no other concerns today. Kortney was seen and examined during dialysis this morning. Overall tolerating dialysis well, blood pressure stable. She continues to complain of pain in her right hand. Review of Systems Review of Systems: Denied fevers, chills, fatigue Denied: shortness of breath or cough Denied: chest pain, palpitations Denied: nausea, vomiting Physical Exam Constitutional: somnolent this morning while on dialysis Eyes: PERRL, conjunctivae normal, anicteric sclerae ENMT: external ear and nose normal, oropharynx normal Respiratory: normal respiratory effort, lungs clear to auscultation Gastrointestinal (Abdomen): Soft with slight tenderness on palpation of the RUQ. + bowel sounds. Skin: no rashes, warm and dry Neurologic: + confused Psychiatric: Orientation: cooperative Affect: euthymic affect disoriented Results & Data Vital Signs (Past 12 Hours) Vital Signs Temp Pulse Pulse Resp BP BP Pulse Ox 07/03/19 14:55 37.1 C 79 16 113/71 90 07/03/19 14:52 81 07/03/19 12:46 36.6 C 173/84 H 07/03/19 12:33 75 182/75 H 07/03/19 12:20 89 182/87 H 07/03/19 12:00 37.0 C 86 88 16 170/85 H 142/64 H 96 07/03/19 11:40 81 149/77 H 07/03/19 11:20 88 142/64 H 07/03/19 11:00 75 134/71 07/03/19 10:44 80 157/67 H 07/03/19 10:20 86 143/65 H 07/03/19 10:00 76 150/54 H 07/03/19 09:40 79 156/74 H 07/03/19 09:20 76 139/73 07/03/19 09:00 75 140/74 07/03/19 08:30 75 144/66 H 07/03/19 08:18 36.6 C 75 07/03/19 07:30 36.9 C 77 18 118/64 92 07/03/19 07:26 80 07/03/19 05:40 86 PG Care Time/CCT Total # of Minutes Spent Total Time Spent with Patient: Total time spent is greater than 50% in coordination of care (as documented) at patient's floor/unit and/or counseling patient:
[2019-07-03] MEDS: DAPTOmycin 450 MG in SYRINGE 0 ML IV SCH (19:47)
[2019-07-03] MEDS: PRAMIPEXOLE DIHYDROCHLO 0.25 MG TAB PO SCH (19:48)
[2019-07-04] MEDS: LEVOTHYROXINE SODIUM 125 MCG TABLET PO SCH (05:31)
[2019-07-04] MEDS: MoRPHine SULFATE 2 MG/ML CARP IV PRN ×2 (05:36→19:35)
--- NOTE | 2019-07-04 07:31 | Anesthesiology Consultation ---
Date of Service July 04, 2019 Assessment & Plan (1) Encounter for pre-operative examination: Chart Review Chart Review: Acceptable Risk for Surgery History Surgery Operation Date: 07/03/19 09:35 Proposed Procedures p Right Hand Wound Incision and Drainage - Henrik Izaguirre DO Operation Date: 07/04/19 09:00 Proposed Procedures p Incision and Drainage Extremity - Henrik Izaguirre DO Height/Weight Height: 5 ft 3 in Weight: 112.8 kg Allergies Allergy/AdvReac Type Severity Reaction Status Date / Time oxycodone Allergy Intermediate HIVES,RASH Verified 03/24/19 16:46 Sulfa (Sulfonamide Allergy Intermediate HIVES,RASH Verified 03/24/19 16:46 Antibiotics) cephalexin Allergy Mild HIVES Verified 03/24/19 16:46 Penicillins Allergy Mild RASH Verified 03/24/19 16:46 Dyazide Allergy Unknown UNKNOWN Verified 05/08/18 11:24 hydrochlorothiazide Allergy Unknown UNKNOWN Verified 03/24/19 16:46 Sulfonylureas Allergy Unknown UNKNOWN Verified 03/24/19 16:46 triamterene Allergy Unknown UNKNOWN Verified 03/24/19 16:46 CARBONIC Allergy Unknown UNKNOWN Uncoded 03/24/19 16:46 Medications Home Medications Medication Instructions Recorded Confirmed Last Taken Selan Silver Protectant 1 applic TOPICAL BID 03/24/19 Unknown lidocaine-prilocaine 1 applic TOPICAL DIRECTED PRN 03/24/19 03/24/19 Unknown acetaminophen 500 mg PO Q6 PRN MDD 3000 07/01/19 07/01/19 Unknown aspirin 81 mg PO DAILY 07/01/19 07/01/19 Unknown bisacodyl 5 mg PO 07/01/19 Unknown bisacodyl 10 mg MI DAILY PRN 07/01/19 07/01/19 Unknown calcium carbonate [Tums] PO HS 07/01/19 Unknown cholecalciferol (vitamin D3) 2,000 unit PO DAILY 07/01/19 07/01/19 Unknown docusate sodium 100 mg PO BID 07/01/19 07/01/19 Unknown insulin glargine 20 unit SUBCUT BID 07/01/19 07/01/19 Unknown insulin lispro 7 - 9 unit SUBCUT BID 07/01/19 07/01/19 Unknown metoprolol tartrate 25 mg PO BID 07/01/19 07/01/19 Unknown polyethylene glycol 3350 17 g PO DAILY 07/01/19 07/01/19 Unknown pramipexole 0.25 mg PO HS 07/01/19 07/01/19 Unknown sertraline 37.5 mg PO DAILY 07/01/19 07/01/19 Unknown sevelamer carbonate 800 mg PO TIDM 07/01/19 07/01/19 Unknown warfarin 3 mg PO DAILY 07/01/19 07/01/19 Unknown Active Medications Generic Name Dose Route Start Last Admin Trade Name Freq PRN Reason Stop Dose Admin Acetaminophen 650 mg 07/01/19 19:58 07/02/19 16:35 Tylenol PO 07/31/19 19:57 650 mg Q4H PRN Administration Pain or Fever Aspirin 81 mg 07/02/19 09:00 07/03/19 09:35 Ecotrin Ectab PO 08/01/19 08:59 Not Given DAILY DELANEY Bumetanide 2 mg 07/02/19 09:00 07/03/19 13:09 Bumex PO 08/01/19 08:59 2 mg DAILY DELANEY Administration Diphenhydramine HCl 25 mg 07/01/19 20:38 07/03/19 06:11 Benadryl IV 07/31/19 20:37 25 mg Q4H PRN Administration Allergic Reaction Ciprofloxacin 400 mg in 200 mls @ 100 mls/hr 07/02/19 16:00 07/03/19 17:47 Cipro IV 07/12/19 15:59 Infused Q24H DELANEY Infusion Protocol Daptomycin 450 mg/ Syringe 9 mls @ 0 mls/min 07/03/19 21:00 07/03/19 19:47 IV 07/11/19 20:59 5 mls/min Q48H DELANEY Administration Protocol Insulin Aspart 0 units 07/02/19 07:30 07/03/19 21:14 Novolog Flexpen SC 08/01/19 07:29 Not Given ACHS DELANEY Protocol Insulin Glargine 0 units 07/02/19 09:00 07/03/19 09:45 Lantus Solostar Pen SC 08/01/19 08:59 7 units QAM DELANEY Administration Protocol Levothyroxine Sodium 250 mcg 07/02/19 06:30 07/04/19 05:31 Synthroid PO 08/01/19 06:29 250 mcg DAILYBB DELANEY Administration Metoprolol Tartrate 25 mg 07/01/19 21:00 07/03/19 19:49 Lopressor PO 07/31/19 20:59 25 mg BID DELANEY Administration Morphine Sulfate 2 mg 07/02/19 20:05 07/04/19 05:36 Morphine Sulfate IV 07/16/19 17:28 2 mg Q2H PRN Administration Pain Multi-Ingredient Cream 1 appln 07/02/19 21:00 07/03/19 19:48 Hydrocerin EXT 08/01/19 20:59 Not Given BID DELANEY Polyethylene Glycol 17 gm 07/02/19 09:00 07/03/19 09:34 Miralax Powder Packet PO 08/01/19 08:59 Not Given QAM DELANEY Pramipexole Dihydrochloride 0.25 mg 07/01/19 21:00 07/03/19 19:48 Mirapex PO 07/31/19 20:59 0.25 mg HS DELANEY Administration Sevelamer HCl 800 mg 07/02/19 08:00 07/03/19 17:48 Renagel PO 08/01/19 07:59 800 mg TIDM DELANEY Administration Vitamin B Complex/Folic Acid 1 cap 07/03/19 11:00 07/03/19 12:13 Nephrocaps PO 08/02/19 10:59 1 cap QAM DELANEY Administration Vitamin D 2,000 units 07/02/19 09:00 07/03/19 12:14 Vitamin D3 PO 08/01/19 08:59 2,000 units QAM DELANEY Administration Warfarin Sodium 3 mg 07/02/19 16:00 07/03/19 15:40 Coumadin PO 08/01/19 15:59 3 mg DAILY@1600 DELANEY Administration NPO Date Last Intake of Fluids: 07/03/19 Time Last Intake of Fluids: 06:21 Last Intake of Fluids Comment: Sip with medication Date Last Intake of Solids: 07/02/19 Time Last Intake of Solids: 18:00 Past Medical History Medical History Ischemic ulcer Restless leg syndrome Hypothyroidism Cellulitis of right hand Diabetes Atrial fibrillation Azotemia End-stage renal disease on hemodialysis (Chronic) Anemia Ischemic ulcer Hypertension (Chronic) AV fistula Diabetes mellitus, type 2 Hemodialysis patient Hyperlipidemia Hypothyroidism MRSA (methicillin resistant Staphylococcus aureus) Shingles Stroke Past Family History Family History Unknown Diabetes Past Surgical History Surgical History AV fistula H/O section History of cholecystectomy History of hand surgery Social History Smoking Status: Former smoker Smoking End Date: 2008 Hx Alcohol Use: Yes alcohol intake frequency: holidays/special occasions only Alcohol Intake Frequency Comment: rare occassion Hx Substance Use: No substance use type: does not use Physical Exam Vital Signs Last Vital Signs Temp 36.7 C 07/04/19 07:01 Pulse 67 07/04/19 07:01 Resp 16 07/04/19 07:01 BP 126/77 07/04/19 07:01 Pulse Ox 95 07/04/19 07:01 Testing Laboratory Results 07/03/19 06:49 07/03/19 06:49 PT 10.9 Seconds (9.0-12.0) 07/01/19 20:26 INR 1.1 (0.9-1.1) 07/01/19 20:26 APTT 25.7 Seconds (21.0-31.0) 07/01/19 20:26 Hemoglobin A1c 6.0 % (4.5-5.6) H 07/02/19 06:14 Blood Type O Negative 07/01/19 20:26 Antibody Screen NEGATIVE 07/01/19 20:26 07/01/19 20:26 Aerobic Blood Culture - Preliminary Blood No growth in Aerobic bottle after 48 hours. Anaerobic Blood Culture - Final 07/01/19 19:52 Gram Stain - Final Hand,Right Wound Culture - Final Staph aureus MRSA 07/03/19 20:33 POC Glucose 117 H Electrocardiogram Date: 04/08/19 Findings: + NSR @ (92 cannot rule out ant NC)
[2019-07-04 07:34] LABS: Basophils # (auto) 0.09 K/uL (0-0.2); Basophils % (auto) 0.6 %; Eosinophils # (auto) 0.04 K/uL (0-0.5); Eosinophils % (auto) 0.3 %; Hematocrit (blood only) 27.5 % (37-47); Hemoglobin 8.5 g/dL (12.0-16.0); Immature Granulocytes # (auto) 0.15 K/uL (0.00-0.02); Immature Granulocytes % (auto) 1.1 %; Lymphocytes # (auto) 2.62 K/uL (1.2-3.4); Lymphocytes % (auto) 18.5 %; Mean Corpuscular Hgb Conc 30.9 g/dL (32-36); Mean Corpuscular Volume 96.8 fL (80-100); Mean Platelet Volume 10.1 fL (7.4-10.4); Monocytes % (auto) 9.9 %; Neutrophils # (auto) 9.89 K/uL (1.4-6.5); Neutrophils % (auto) 69.6 %; Platelet Count 289 K/uL (130-400); RDW Coefficient of Variation 15.9 % (11.5-14.5); RDW Standard Deviation 56.2 fL (36.4-46.3); Red Blood Count 2.84 M/uL (4.2-5.4); White Blood Count 14.19 K/uL (4.8-10.8)
[2019-07-04] MEDS: SEVELAMER HCL 800 MG TABLET PO SCH ×3 (07:44→16:14)
[2019-07-04] MEDS: INSULIN ASPART 100 UNITS/ML 3 ML PEN SC SCH ×4 (07:44→21:42)
[2019-07-04] MEDS: NEPHROCAPS PO SCH (07:45)
[2019-07-04] MEDS: POLYETHYLENE (MIRALAX) 17 GM PACK PO SCH (07:45)
[2019-07-04] MEDS: METOPROLOL TARTRATE 25 MG TAB PO SCH ×2 (07:45→20:42)
[2019-07-04] MEDS: CHOLECALCIFEROL 1,000 UNITS TAB PO SCH (07:45)
[2019-07-04] MEDS: EUCERIN CR 120 GM JAR EXT SCH ×2 (07:46→20:41)
[2019-07-04] MEDS: INSULIN GLARGINE SOLOSTAR 100 UNITS/ML 3 ML PEN SC SCH (07:46)
[2019-07-04] MEDS: BUMETANIDE 1 MG TAB PO SCH (07:47)
[2019-07-04] MEDS: ASPIRIN 81 MG ECTAB PO SCH (07:47)
--- NOTE | 2019-07-04 08:05 | Nephrology Progress Note ---
Date of Service July 04, 2019 Assessment & Plan (1) End-stage renal disease on hemodialysis: 58 y o F with ESRd on HD TTS at [facility]. Admitted with rt hand ischemic ulcer, On IV Daptomycin and Ertapenem. Had HD yesterday, BP, electrolyte acceptable. --HD next Friday --continue on phos binder and renal cap. --SHANI with next HD Will follow (2) Ischemic ulcer: -- On IV Daptomycin and Ertapenem. Dose adjusted per pharmacy -- Await Orthopedic surgery input (3) Hypertension: -- Blood pressure is relatively low but asymptomatic. Patient reports that she still makes a small amount of urine. Continue Metoprolol and loop diuretic (4) Atrial fibrillation: -- On warfarin therapy (5) Diabetes mellitus, type 2: Subjective Kortney was not in her room as she left for OR for rt hand debridement. . Results & Data Vital Signs (Past 12 Hours) Vital Signs Temp Pulse Pulse Resp BP BP Pulse Ox 07/04/19 07:01 36.7 C 67 16 126/77 95 07/04/19 04:16 36.8 C 86 20 113/66 99 07/04/19 01:54 85 07/03/19 23:25 37.1 C 81 20 121/61 97 07/03/19 20:06 36.9 C 79 20 134/73 97 PG Care Time/CCT Total # of Minutes Spent Total Time Spent with Patient: Total time spent is greater than 50% in coordination of care (as documented) at patient's floor/unit and/or counseling patient:
[2019-07-04 08:18] LABS: Albumin Globulin Ratio 0.4 (0.9-2); Albumin Level 2.3 gm/dl (3.4-5.0); Bilirubin,Total 0.3 mg/dl (0.2-1); Calcium 8.5 mg/dl (8.5-10.1); Creatinine Clr Calc Pharmacy 15.1 ml/min; Est GFR (African American) 10.6; Est GFR (Non-African American) 9.2; Globulin 5.4 gm/dl (2.5-4.0); Potassium 4.8 mmol/L (3.5-5.1); Total Protein 7.7 gm/dl (6.4-8.2)
[2019-07-04] MEDS ORDERED: BACITRACIN INJ 50,000 UNIT VIAL ONE ×2 (08:26→08:39)
[2019-07-04] MEDS ORDERED: BUPIVACAINE 0.5 % 5 MG/1 ML MPF 30ML VIAL ONE (08:26)
[2019-07-04] MEDS ORDERED: PROPOFOL IV EMULSION 10 MG/ML 20 ML VIAL IV ONE (08:28)
[2019-07-04] MEDS ORDERED: fentaNYL citrate 100 MCG/2 ML VIAL ONE ×2 (08:28→09:27)
[2019-07-04] MEDS ORDERED: LIDOCAINE HCL 2% 2 ML VIAL/AMP(20MG/ML) INFIL ONE (08:28)
[2019-07-04] MEDS ORDERED: ONDANSETRON INJ 2 MG/ML 2 ML VIAL ONE (08:28)
[2019-07-04] MEDS ORDERED: LABETALOL HCL IV 5 MG/ML 20ML IV PRN (08:49)
[2019-07-04] MEDS ORDERED: fentaNYL citrate 100 MCG/2 ML VIAL IV PRN (08:49)
[2019-07-04] MEDS ORDERED: ONDANSETRON INJ 2 MG/ML 2 ML VIAL IV PRN (08:49)
[2019-07-04] MEDS ORDERED: ATROPINE SULFATE 0.1 MG/ML 10ML SYR IV PRN (08:49)
--- NOTE | 2019-07-04 09:02 | Family Medicine Progress Note ---
Date of Service July 04, 2019 Assessment & Plan (1) Cellulitis of right hand: 58-year-old female with DM, A. fib, hypothyroid, RLS, on dialysis for ESRD transferred to [facility] for right hand infection now on Daptomycin, Ciprofloxacin previously on Vancomycin and linezolid OSH and previously failed imipenem cilastin therapy. Orthopaedic surgery performed operative debridement 07/04/2019. Acute right hand infection - MRI results highly suspicious for osteomyelitis of the 4th metacarpal base, concern for septic arthritis, concern for infection of the tenosynovitis of the flexor tendon of the 4th digit - wound cultures grew MRSA from 07/01/2019 - no indications for vascular surgical intervention - Daptomycin 450 mg IV Q48h, Ciprofloxacin 400 mg Q24h will determine EOT date after results of orthopaedic procedure - right hand wound/infection s/p "Irrigation and Debridement right hand diabetic neuropathic ulcer including skin/fascia/fourth metacarpal phalangeal joint capsule; Resection of Extensor tendon fourth digit; irrigation and debridement septic fourth metacarpal phalangeal joint; Resection fourth metacarpal head, resection fourth proximal phalanx; Tenosynovectomy of fourth flexor(Right)" - Henrik Izaguirre, DO ESRD - Access US performed on arrival indicates patent BPG and patent AVF. - HD TTS last HD on 07/03 as scheduled per nephrology - continue Epoetin 10,000 Diabetic - glucose 130 today - A1C 6.0 (07/02) - on insulin sliding scale A. fib w/ history of CVA Discussed with pharmacology the potential interaction between Warfarin and Cipro, but given the interaction is not a true drug-drug interaction and the risk of not properly anticoagulating a patient with a 9.8 % per year risk of stroke was concerning, Warfarin was continued. - home dose: 3 mg Warfarin w/ INR of 1.1 on arrival w/ goal INR 2-3 - INR 1.3 (07/04) - increasing Warfarin to 4 mg (07/04) - Recheck INR daily until therapeutic - consider increasing Warfarin again if not at goal Hypothyroid - take home Synthroid 250 mg RLS - continue Pramipexole .5 mg QHS FEN: dialysis diet DVT: Warfarin Dispo: pending orthopaedic procedure results and continued evaluation of right hand infection Supervising Physician Co-Signing Physician Notes I personally examined the patient and verified all niño points of history and exam, discussed case, and agree with decision making with Dr Pinedo. no significant complaints. still confused. operative notes noted Vitals noted, in general she is awake and alert pleasant no distress. HEENT normocephalic atraumatic mucous membranes moist. Breathing is unlabored no accessory muscle use good effort. Right hand dressed, no tracking erythema Hand cellulitis/nonhealing wound. Continue broad antibiotics - given vascular disease/DM and duration of open wound in healthcare setting, while growing MRSA, have to assume polymicrobial/potential for pseudomonas, until proven otherwise (at least until operative cultures). Reportedly has at least one blood culture positive, must treat as though it is real pending further speciation, covered with daptomycin -- this will likely match the hand culture we are seeing growth on. Appreciate vascular, orthopedic input End-stage renal disease on dialysiscontinue hemodialysis. DVT prophylaxiswarfarin (currently low INR, adequate for DVT proph althogh not stroke proph - slowly titrate up since post op; no indication to need full bridging) Edwige Ardon was in the sitting in her bed and had just finished her lunch. She had returned from the OR where she had a debridement of her right hand. She was concerned that she might start feeling pain in her hand once the anesthesia wears off. When I saw her in the afternoon she had low blood pressure, but was able to hold a conversation. She was not oriented to date or time but otherwise oriented. She has been drinking plenty of fluid and not having any issues with dysuria or polyuria. She did not have any increased work of breathing. Review of Systems Constitutional: no fever Respiratory: no cough denies shortness of breath Cardiovascular: no chest pain Gastrointestinal: + nausea (slightly nausea); no abdominal pain and no vomiting Physical Exam Constitutional: WD/WN, vitals as above cooperative and comfortable Eyes: PERRL, conjunctivae normal, anicteric sclerae ENMT: external ear and nose normal, oropharynx normal Respiratory: normal respiratory effort, lungs clear to auscultation Cardiovascular: RRR, no murmur, no edema Gastrointestinal (Abdomen): normal bowel sounds, soft, nontender, no hepatosplenomegaly Skin: no rashes, warm and dry Neurologic: + confused Psychiatric: Orientation: + not oriented x 3 (oriented to name and location, thougth date was, "September 04 1992") Eye Contact: good eye contact Affect: euthymic affect Results & Data Vital Signs (Past 12 Hours) Vital Signs Temp Pulse Pulse Resp BP BP Pulse Ox 07/04/19 07:01 36.7 C 67 16 126/77 95 07/04/19 04:16 36.8 C 86 20 113/66 99 07/04/19 01:54 85 07/03/19 23:25 37.1 C 81 20 121/61 97 PG Care Time/CCT Total # of Minutes Spent Total Time Spent with Patient: Total time spent is greater than 50% in coordination of care (as documented) at patient's floor/unit and/or counseling patient:
--- NOTE | 2019-07-04 09:09 | History & Physical Bridge Note ---
Date of Service July 04, 2019 History & Physical Bridge Note I have examined the patient, reviewed the History & Physical and in the interval since the performance of the History & Physical I have noted the following changes of clinical significance: Will require surgical incision, irrigation and debridement right hand multiple locations today. Maintain NPO. Please see consent on chart.
[2019-07-04] MEDS ORDERED: PHENYLEPHRINE 100MCG/ML 5ML SYR ONE (10:26)
[2019-07-04] MEDS ORDERED: NEOSTIGMINE METHYLSULFATE 5 MG/5 ML SYR ONE (10:26)
[2019-07-04] MEDS ORDERED: GLYCOPYRROLATE 0.2 MG/ML VIAL ONE (10:26)
--- NOTE | 2019-07-04 11:06 | Post Operative Brief Note ---
Immediate Post Op Note v1 Date of Surgery July 04, 2019 Pre & Post Diagnosis Operation Date: 07/03/19 09:35 <No data on this case meets the specified criteria> Operation Date: 07/04/19 09:00 Pre-Op Diagnosis: Diabetic neuropathic ulcer dorsal right hand; suppurative tenosynovitis of fourth flexor tendon, osteomyelitis fourth metacarpal head, osteomyelitis proximal phalanx fourth digit Post-Op Diagnosis: Diabetic neuropathic ulcer dorsal right hand; suppurative tenosynovitis of fourth flexor tendon, osteomyelitis fourth metacarpal head, osteomyelitis proximal phalanx fourth digit, necrosis fourth extensor tendon Procedure Operation Date: 07/03/19 09:35 <No data on this case meets the specified criteria> Operation Date: 07/04/19 09:00 Actual Procedures p Irrigation and Debridement right hand diabetic neuropathic ulcer including skin/fascia/fourth metacarpal phalangeal joint capsule; Resection of Extensor tendon fourth digit; irrigation and debridement septic fourth metacarpal phalangeal joint; Resection fourth metacarpal head, resection fourth proximal phalanx; Tenosynovectomy of fourth flexor(Right) - Henrik Izaguirre DO Surgeon Henrik Izaguirre DO Magazine Supervisor Greg Alva PA-C Estimated Blood Loss 20 Findings Consistent with Post-Op Diagnosis Specimens Aerobic anaerobic Gram stain fourth metacarpal phalangeal joint Fourth metacarpal head and fourth proximal phalanx Drains Other (1/2 inch iodoform gauze x8 inches) Anesthesia Type General Regional Complications none Disposition Accompanied Patient To Recovery: Yes Disposition: Recovery Room
--- NOTE | 2019-07-04 13:10 | Anesthesiology Progress Note ---
Date of Service July 04, 2019 Anesthesia Post Procedure Vital Signs Vital Signs: Temp Pulse Pulse Pulse Resp BP BP 07/04/19 12:37 70 07/04/19 12:26 36.8 C 73 20 117/57 L 07/04/19 11:46 36.9 C 72 20 117/73 07/04/19 11:35 72 20 115/55 L 07/04/19 11:25 37 C 71 20 119/50 L 07/04/19 11:15 76 20 133/59 L 07/04/19 11:05 80 20 144/69 H 07/04/19 10:55 37.2 C 81 18 123/58 L 07/04/19 08:00 78 07/04/19 07:01 36.7 C 67 16 126/77 07/04/19 04:16 36.8 C 86 20 113/66 07/04/19 01:54 85 07/03/19 23:25 37.1 C 81 20 121/61 07/03/19 20:06 36.9 C 79 20 134/73 07/03/19 14:55 37.1 C 79 16 113/71 07/03/19 14:52 81 Pulse Ox 07/04/19 12:37 07/04/19 12:26 95 07/04/19 11:46 98 07/04/19 11:35 96 07/04/19 11:25 97 07/04/19 11:15 98 07/04/19 11:05 98 07/04/19 10:55 100 07/04/19 08:00 07/04/19 07:01 95 07/04/19 04:16 99 07/04/19 01:54 07/03/19 23:25 97 07/03/19 20:06 97 07/03/19 14:55 90 07/03/19 14:52 Pain Intensity Right Hand: Pain Intensity: 8 Transfer of Care Handoff Completed per policy Notes Mental Status: alert / awake / arousable Patient Amnestic to Procedure: Yes Nausea / Vomiting: adequately controlled Pain: adequately controlled Airway Patency, RR, SpO2: stable & adequate BP & HR: stable & adequate Hydration State: stable & adequate Anesthetic Complications: no major complications apparent
[2019-07-04 14:37] LABS: INR 1.3 (0.9-1.1); Prothrombin Time 13.5 Seconds (9.0-12.0)
--- NOTE | 2019-07-04 15:55 | Operative Report ---
DATE OF OPERATION: 07/04/2019 PREOPERATIVE DIAGNOSES: 1. Left hand diabetic neuropathic ulcer measuring 5 cm x 4 cm. 2. Suppurative tenosynovitis of the fourth flexor tendon. 3. Osteomyelitis of the fourth metacarpal head. 4. Osteomyelitis of the fourth proximal phalanx. 5. Necrosis of the fourth extensor tendon. 6. Septic arthritis of the fourth metacarpophalangeal joint. POSTOPERATIVE DIAGNOSES: 1. Left hand diabetic neuropathic ulcer measuring 5 cm x 4 cm. 2. Suppurative tenosynovitis of the fourth flexor tendon. 3. Osteomyelitis of the fourth metacarpal head. 4. Osteomyelitis of the fourth proximal phalanx. 5. Necrosis of the fourth extensor tendon. 6. Septic arthritis of the fourth metacarpophalangeal joint. PROCEDURE: 1. Right hand irrigation and debridement, diabetic neuropathic ulcer measuring 5 cm x 4 cm including skin, fascia and fourth metacarpophalangeal joint capsule. 2. Resection right fourth extensor tendon. 3. Incision and drainage fourth metacarpophalangeal joint septic arthritis. 4. Resection right fourth metacarpal head. 5. Resection of the right fourth proximal phalanx. 6. Tenosynovectomy of the right fourth flexor tendon. SURGEON: Henrik Izaguirre DO. PHOTOGRAPHER PORTRAIT: Greg Alva PA-C who was present for patient positioning, sterile prep and drape, management of retractors and instruments. He was present through the critical portions of the case including wound closure, application of sterile dressing and transport of the patient to recovery. ANESTHESIA: General endotracheal tube with wrist block. SPECIMENS: Aerobic, anaerobic, Gram stain from the fourth metacarpophalangeal joint and fourth metacarpal head and fourth proximal phalanx. DRAINS: One-half inch iodoform gauze x8 inches. COMPLICATIONS: None. BLOOD LOSS: 20 mL. PERTINENT HISTORY: This is a 58-year-old female with significant diabetes, neuropathy and peripheral vascular disease as well as a chronic dialysis. The patient had ulceration and abscess with deep infection of her right hand on several occasions. She had a prior debridement by Dr. Meza. Presented with ulceration on the dorsum of the right hand with swelling of her residual fourth digit. MRI demonstrated likely septic arthritis fourth metacarpophalangeal joint with flexor tenosynovitis of the fourth digit and severe tissue loss with ulceration dorsum of the hand. The patient was then scheduled for surgery as indicated. The patient was originally scheduled to have surgery yesterday; however, she was in dialysis for significant portion of the day and Anesthesia service was concerned about safety of anesthetizing the patient same day of dialysis. The patient was then scheduled for surgery today as indicated. All potential risks, benefits, complications, alternatives, rehab, potential for incomplete relief of symptoms, need for further surgery, DVT, PE, , persistent pain, swelling, scarring, weakness, neurovascular injury, wound complications were discussed with the patient. The patient decided to proceed with procedure as indicated. DESCRIPTION OF PROCEDURE: The patient was taken to the operative suite, placed supine on the operating table. After review of consent and identification of proper operative site, the patient was anesthetized, endotracheal tube was placed. Tourniquet was unable to be used on the right upper extremity due to the patient's AV fistula. Next, the right upper extremity was then sterilely prepped and draped in usual fashion, elevated and an Esmarch tourniquet was applied over sterile surgical towel at the level of the wrist. Next, a 15 blade scalpel was used to debride the skin, fascia, and joint capsule of the fourth metacarpophalangeal joint. The necrotic tissue which was obvious was resected and then the fourth extensor tendon was noted to have necrosis and was slightly retracted. This was grasped with a rongeur, placed on traction and then transected and allowed to retract within the extensor compartment. This was performed to provide an opportunity to heal the tissue as this was exposed tendon underneath the dorsum of the hand. Next, the curette was then used to curettage the dorsal soft tissue including the fascia, joint capsule and the skin to encourage bleeding. Next, the fourth metacarpal head was noted to have been exposed. A probe was performed with gentle pressure using a forceps on the fourth metacarpal head. There was no integrity of the bone. The forceps passed directly into the bone indicating osteomyelitis and osteomalacia. The fourth metacarpal head was then resected using a bone biting rongeur proximal to the neck. Next, the proximal phalanx was then probed with a forceps, this too allowed easy passage of the forceps into the bone indicating osteomyelitis. A bone biting rongeur was then used to resect the proximal phalanx of the fourth digit just distal to the flare of the metaphysis. These two fragments of bone were then passed off as specimen for pathology. Next, the joint capsule was then irrigated with pulsatile lavage with bacitracin and the volar plate was identified and noted to be a tear and the volar plate with necrosis and exposure of the fourth flexor tendon sheath. This was then opened with a 15 blade scalpel and there was noted to be significant purulence which was noted within the fourth metacarpophalangeal joint and in the flexor tendon sheath. This culture was then obtained and sent for aerobic, anaerobic, Gram stain. Next, portion of the damage volar plate was then resected using a 15 blade scalpel. The flexor tendon sheath was then opened through the dorsum of the ray, exposing the tendon and then tenosynovectomy was then performed with a rongeur, forceps and tenotomy scissors. Once this was completed, the entire incision and residual right hand was then copiously irrigated with pulsatile lavage with 6 liters of lavage solution with bacitracin. Once this was completed, top gloves and top sheet were changed to reestablish a sterile field and approximately 8 inches of one-half inch iodoform gauze was then packed into the flexor tendon sheath and into the fourth metacarpophalangeal joint region. The dorsal tissue flap was then loosely closed over this drain with interrupted 3-0 nylon. This reapproximated the tissue loosely to allow for drainage. However, also allow for approximation of the soft tissues. Improvement overall in the contour and alignment of the hand was noted. Decompression of the abscess and tenosynovitis was also noted. Next, a wrist block was performed with 0.5% Marcaine plain and then a sterile compressive dressing was applied with overwrapped with an Phuc wrap. The tourniquet was released. The patient was awakened and taken to recovery in stable condition. I attest to the content of the Intraoperative Record and any orders documented therein. Any exception s are noted below.
[2019-07-04] MEDS: CIPROFLOXACIN 400 MG/200 ML BAG IV SCH (16:14)
[2019-07-04] MEDS: WARFARIN SOD 4 MG TAB PO SCH (17:24)
[2019-07-04] MEDS: PRAMIPEXOLE DIHYDROCHLO 0.25 MG TAB PO SCH (20:42)
[2019-07-04] MEDS ORDERED: MoRPHine SULFATE 4 MG/ML 1 ML CARP\\VIAL IV PRN (21:10)
[2019-07-05] MEDS: HYDROmorphone INJ 0.5 MG/0.5 ML SYR IV PRN ×5 (01:10→21:11)
[2019-07-05] MEDS: LEVOTHYROXINE SODIUM 125 MCG TABLET PO SCH (06:07)
--- NOTE | 2019-07-05 06:11 | Family Medicine Progress Note ---
Date of Service July 05, 2019 Assessment & Plan (1) Cellulitis of right hand: 58-year-old female with DM, A. fib, hypothyroid, RLS, on dialysis for ESRD transferred to [facility] for right hand infection now on Daptomycin, Ciprofloxacin previously on Vancomycin and linezolid OSH and previously failed imipenem cilastin therapy. Orthopaedic surgery performed operative debridement 07/04/2019. Acute right hand infection - MRI results highly suspicious for osteomyelitis of the 4th metacarpal base, concern for septic arthritis, concern for infection of the tenosynovitis of the flexor tendon of the 4th digit - wound cultures grew MRSA from 07/01/2019 - no indications for vascular surgical intervention - Daptomycin 450 mg IV Q48h D/C'd ciprofloxacin per ID; not concerned about pseudomonas right hand wound/infection s/p "Irrigation and Debridement right hand diabetic neuropathic ulcer including skin/fascia/fourth metacarpal phalangeal joint capsule; Resection of Extensor tendon fourth digit; irrigation and debridement septic fourth metacarpal phalangeal joint; Resection fourth metacarpal head, resection fourth proximal phalanx; Tenosynovectomy of fourth flexor(Right)" - Henrik Izaguirre, DO ESRD - Access US performed on arrival indicates patent BPG and patent AVF. - HD TTS as scheduled per nephrology Diabetes - A1C 6.0 (07/02) - on insulin sliding scale A. fib w/ history of CVA Discussed with pharmacology the potential interaction between Warfarin and Cipro, but given the interaction is not a true drug-drug interaction and the risk of not properly anticoagulating a patient with a 9.8 % per year risk of stroke was concerning, Warfarin was continued. - home dose: 3 mg Warfarin w/ INR of 1.1 on arrival w/ goal INR 2-3 - INR 1.3 (07/04) - increasing Warfarin to 5 mg will discuss bridging with heparin with surgeon tomorrow - Recheck INR daily until therapeutic - consider increasing Warfarin again if not at goal Hypothyroid Continue home synthroid 250 mg RLS - continue Pramipexole .5 mg QHS FEN: dialysis diet DVT: Warfarin Dispo: pending orthopaedic procedure results and continued evaluation of right hand infection Supervising Physician Co-Signing Physician Notes ATTENDING NOTE I was present with the resident and confirmed niño portions of the history and exam. I agree with the above impression and plan. I also discussed the case with the ID remediation consultant. Pain seems well controlled at the time of our visit, however, other providers note significant pain in their notes - this seems variable and may be related to timing of pain medication. She had no complaints otherwise. PLAN 1) Dressing and packing change tomorrow. 2) Pain management. 3) HD as scheduled tomorrow. 4) IV antibiotics as discussed with ID; she will need extended course so will advise case management. Edwige Ardon is doing well today post op day 1 from debridement of wound and removal of part of metacarpophalangeal joint of fourth digit. She denies any fever, chills, rigors, SOB, cough, GI issues, Abdominal pain, or other problems. Review of Systems Review of Systems: All systems reviewed & are unremarkable except as noted in HPI & below Physical Exam Physical Exam: Constitutional: Patient appears stated age resting comfortably in bed no concerns at this time Eyes: Pupils equal round reactive to light, anicteric sclerae, extraocular muscle motions intact bilaterally Respiratory: Chest expansion symmetric, lung sounds vesicular in all lung castellano Cardiovascular: Regular rate regular rhythm heart sounds dual no murmurs rubs skips or gallops Gastrointestinal: Abdomen soft nontender, no hepatosplenomegaly, no masses detected MSK: Patient recently had removal of distal fourth metacarpal and proximal phalanges as well as extensor tendon wound is bandaged does not appear to be leaking Results & Data Vital Signs (Past 12 Hours) Vital Signs Temp Pulse Pulse Pulse Resp BP Pulse Ox 07/05/19 05:11 84 07/05/19 03:14 37.0 C 82 21 108/65 100 07/05/19 00:54 85 20 109/65 100 07/04/19 22:45 37.4 C 85 19 129/70 96 07/04/19 19:39 37 C 80 18 128/69 98 PG Care Time/CCT Total # of Minutes Spent Total Time Spent with Patient: Total time spent is greater than 50% in coordination of care (as documented) at patient's floor/unit and/or counseling patient: Resident Activity Tracking Resident Involvement: Resident Care Provided Care Provided: Adult Hospital Medicine
[2019-07-05 07:42] LABS: Basophils # (auto) 0.03 K/uL (0-0.2); Basophils % (auto) 0.3 %; Eosinophils # (auto) 0.04 K/uL (0-0.5); Eosinophils % (auto) 0.3 %; Hematocrit (blood only) 25.1 % (37-47); Hemoglobin 7.8 g/dL (12.0-16.0); Immature Granulocytes # (auto) 0.07 K/uL (0.00-0.02); Immature Granulocytes % (auto) 0.6 %; Lymphocytes # (auto) 2.33 K/uL (1.2-3.4); Lymphocytes % (auto) 19.7 %; Mean Corpuscular Hgb Conc 31.1 g/dL (32-36); Mean Platelet Volume 9.6 fL (7.4-10.4); Monocytes # (auto) 1.26 K/uL (0.11-0.59); Monocytes % (auto) 10.7 %; Neutrophils # (auto) 8.09 K/uL (1.4-6.5); Neutrophils % (auto) 68.4 %; Platelet Count 279 K/uL (130-400); RDW Coefficient of Variation 15.9 % (11.5-14.5); RDW Standard Deviation 57.1 fL (36.4-46.3); Red Blood Count 2.56 M/uL (4.2-5.4); White Blood Count 11.82 K/uL (4.8-10.8)
[2019-07-05 08:11] LABS: RBC Morphology Unremarkable
[2019-07-05 08:25] LABS: Albumin Globulin Ratio 0.4 (0.9-2); Albumin Level 2.3 gm/dl (3.4-5.0); Bilirubin,Total 0.3 mg/dl (0.2-1); Calcium 8.2 mg/dl (8.5-10.1); Creatinine Clr Calc Pharmacy 11.5 ml/min; Est GFR (African American) 7.8; Est GFR (Non-African American) 6.7; Globulin 5.3 gm/dl (2.5-4.0); Potassium 4.6 mmol/L (3.5-5.1); Total Protein 7.6 gm/dl (6.4-8.2)
[2019-07-05] MEDS: SEVELAMER HCL 800 MG TABLET PO SCH ×3 (08:55→16:41)
[2019-07-05] MEDS: ASPIRIN 81 MG ECTAB PO SCH (08:56)
[2019-07-05] MEDS: BUMETANIDE 1 MG TAB PO SCH (08:56)
[2019-07-05] MEDS: NEPHROCAPS PO SCH (08:57)
[2019-07-05] MEDS: POLYETHYLENE (MIRALAX) 17 GM PACK PO SCH (08:57)
[2019-07-05] MEDS: CHOLECALCIFEROL 1,000 UNITS TAB PO SCH (08:58)
[2019-07-05] MEDS ORDERED: EPOETIN ALFA 10,000 UNITS/ML VIAL IV SCH (09:00)
[2019-07-05] MEDS: INSULIN GLARGINE SOLOSTAR 100 UNITS/ML 3 ML PEN SC SCH (09:04)
[2019-07-05] MEDS: INSULIN ASPART 100 UNITS/ML 3 ML PEN SC SCH ×4 (09:07→21:14)
[2019-07-05] MEDS: EUCERIN CR 120 GM JAR EXT SCH ×2 (09:11→20:41)
[2019-07-05] MEDS: METOPROLOL TARTRATE 25 MG TAB PO SCH ×2 (09:12→20:41)
--- NOTE | 2019-07-05 09:25 | Orthopedic Progress Note ---
Date of Service July 05, 2019 Assessment & Plan (1) Osteomyelitis of hand, right, acute: POD #1 s/p 1. Right hand irrigation and debridement, diabetic neuropathic ulcer measuring 5 cm x 4 cm including skin, fascia and fourth metacarpophalangeal joint capsule. 2. Resection right fourth extensor tendon. 3. Incision and drainage fourth metacarpophalangeal joint septic arthritis. 4. Resection right fourth metacarpal head. 5. Resection of the right fourth proximal phalanx. 6. Tenosynovectomy of the right fourth flexor tendon The dressing was changed today. ~6 inches of packing was removed from the dorsal hand ulcer site. Will continue to monitor the 4th finger at this time. Continue IV antibiotics. Awaiting cultures and sensitivities. Plan for dressing change tomorrow with more packing removal. D/C planning--uncertain at this time. (2) Ischemic finger: Subjective Pain controlled while at rest. No other complaints with the right hand. Physical Exam Constitutional: WD/WN, vitals as above no acute distress Musculoskeletal: Extremities: + upper extremity abnormal to inspection Right (Dorsal 4th interspace ulceration with packing at the site.) and + hand abnormality Right (index and middle finger amputations. Extensor lag ring finger. Ring finger with a purple appearance, moderate to severe swelling.) Psychiatric: A+Ox3, euthymic affect Results & Data Vital Signs (Past 12 Hours) Vital Signs Temp Pulse Pulse Pulse Resp BP Pulse Ox 07/05/19 07:14 36.9 C 84 18 91/58 L 93 07/05/19 05:11 84 07/05/19 03:14 37.0 C 82 21 108/65 100 07/05/19 00:54 85 20 109/65 100 07/04/19 22:45 37.4 C 85 19 129/70 96
--- NOTE | 2019-07-05 10:31 | Nephrology Progress Note ---
Date of Service July 05, 2019 Assessment & Plan (1) End-stage renal disease on hemodialysis: 58 y o F with ESRd on HD TTS at [facility]. Admitted with rt hand ischemic ulcer, On IV Daptomycin and Ertapenem. Had debridement on 07/04/2019 Currently volume status, BP, electrolyte acceptable. Having lot of pain in her right hand. --HD tomorrow --continue on phos binder and renal cap. --SHANI 39043 units with next HD Will follow (2) Ischemic ulcer: -- On IV Daptomycin and Ertapenem. Dose adjusted per pharmacy -- Await Orthopedic surgery input (3) Hypertension: -- Blood pressure is relatively low but asymptomatic. Patient reports that she still makes a small amount of urine. Continue Metoprolol and loop diuretic (4) Atrial fibrillation: -- On warfarin therapy (5) Diabetes mellitus, type 2: Subjective Kortney Was seen and examined in her room this morning. She was having significant pain in her right hand, just received Dilaudid. Denies shortness of breath or chest pain. Appetite has been decent. Blood pressure relatively low. Review of Systems Review of Systems: Review of system was negative except mention above Physical Exam Constitutional: well developed, well nourished and + acute distress (With pain in right hand) Respiratory: normal respiratory effort, lungs clear to auscultation Cardiovascular: RRR, no murmur, no edema Neurologic: moves all extremities and awake; not confused Psychiatric: A+Ox3, euthymic affect Results & Data Vital Signs (Past 12 Hours) Vital Signs Temp Pulse Pulse Pulse Resp BP Pulse Ox 07/05/19 07:14 36.9 C 84 18 91/58 L 93 07/05/19 05:11 84 07/05/19 03:14 37.0 C 82 21 108/65 100 07/05/19 00:54 85 20 109/65 100 07/04/19 22:45 37.4 C 85 19 129/70 96 PG Care Time/CCT Total # of Minutes Spent Total Time Spent with Patient: Total time spent is greater than 50% in coordination of care (as documented) at patient's floor/unit and/or counseling patient:
[2019-07-05] MEDS: DiphenhydrAMINE HCL 50 MG/ML VIAL IV PRN (11:12)
--- NOTE | 2019-07-05 11:13 | Infectious Disease Progress Nt ---
Date of Service July 05, 2019 Assessment & Plan (1) Osteomyelitis of hand, right, acute: will stop cipro, continue dapto at Q48 hour dosing, will need 6 weeks of IV abx post op, will need weekly cbc, cmp, esr, cpk while on abx. can follow with ID post d/c. discussed with primary. Subjective pt seen in followup, oob to chair. c/o pain in right hand, dressing intact s/p I&D, remains on dapto and cipro IV. All cultures growing MRSA, wbc improved to 11, blood cultures remain negative. afebrile. no cp, sob, n/v/d/abd pain, tolerating abx well. Review of Systems Review of Systems: All systems reviewed & are unremarkable except as noted in HPI & below Physical Exam Constitutional: WD/WN, vitals as above Eyes: EOM intact bilaterally; no conjunctival abnormality ENMT: external ear and nose normal, oropharynx normal Neck: normal visual inspection Respiratory: normal respiratory effort, lungs clear to auscultation Cardiovascular: RRR, no murmur, no edema Gastrointestinal (Abdomen): normal bowel sounds, soft, nontender, no hepatosplenomegaly Musculoskeletal: no cyanosis or clubbing, extremities motor strength 5/5 Skin: no rashes, warm and dry right hand dressing c/d/i, no surrounding warmth or erythema, tender Psychiatric: A+Ox3, euthymic affect Results & Data Vital Signs (Past 12 Hours) Vital Signs Temp Pulse Pulse Pulse Resp BP Pulse Ox 07/05/19 07:14 36.9 C 84 18 91/58 L 93 07/05/19 05:11 84 07/05/19 03:14 37.0 C 82 21 108/65 100 07/05/19 00:54 85 20 109/65 100 Laboratory Results Microbiology 07/04/19 12:30 Finger,Right Ring Gram Stain - Final 07/04/19 12:30 Finger,Right Ring Aerobic and Anaerobic Culture - Preliminary Staphylococcus aureus 07/01/19 20:26 Blood Aerobic Blood Culture - Preliminary No growth in Aerobic bottle after 48 hours. 07/01/19 20:26 Blood Anaerobic Blood Culture - Final 07/01/19 19:52 Hand,Right Gram Stain - Final 07/01/19 19:52 Hand,Right Wound Culture - Final Staph aureus MRSA PG Care Time/CCT Total # of Minutes Spent Total Time Spent with Patient: Total time spent is greater than 50% in coordination of care (as documented) at patient's floor/unit and/or counseling patient:
[2019-07-05] MEDS: WARFARIN SOD 4 MG TAB PO SCH (16:42)
[2019-07-05 19:22] LABS: INR 1.9 (0.9-1.1); Prothrombin Time 18.6 Seconds (9.0-12.0)
[2019-07-05] MEDS: PRAMIPEXOLE DIHYDROCHLO 0.25 MG TAB PO SCH (20:42)
[2019-07-05] MEDS: DAPTOmycin 450 MG in SYRINGE 0 ML IV SCH (20:55)
[2019-07-06] MEDS: DiphenhydrAMINE HCL 50 MG/ML VIAL IV PRN (01:43)
[2019-07-06 06:02] LABS: Basophils # (auto) 0.03 K/uL (0-0.2); Basophils % (auto) 0.3 %; Eosinophils # (auto) 0.04 K/uL (0-0.5); Eosinophils % (auto) 0.4 %; Hematocrit (blood only) 26.3 % (37-47); Hemoglobin 8.2 g/dL (12.0-16.0); Immature Granulocytes # (auto) 0.09 K/uL (0.00-0.02); Immature Granulocytes % (auto) 0.9 %; Lymphocytes # (auto) 2.16 K/uL (1.2-3.4); Lymphocytes % (auto) 20.5 %; Mean Corpuscular Hgb Conc 31.2 g/dL (32-36); Mean Corpuscular Volume 97.8 fL (80-100); Mean Platelet Volume 9.7 fL (7.4-10.4); Monocytes # (auto) 1.08 K/uL (0.11-0.59); Monocytes % (auto) 10.2 %; Neutrophils # (auto) 7.16 K/uL (1.4-6.5); Neutrophils % (auto) 67.7 %; Platelet Count 270 K/uL (130-400); RDW Coefficient of Variation 16.2 % (11.5-14.5); Red Blood Count 2.69 M/uL (4.2-5.4); White Blood Count 10.56 K/uL (4.8-10.8)
[2019-07-06 06:21] LABS: INR 2.6 (0.9-1.1); Prothrombin Time 25.2 Seconds (9.0-12.0)
[2019-07-06 06:50] LABS: Albumin Globulin Ratio 0.4 (0.9-2); Albumin Level 2.3 gm/dl (3.4-5.0); BUN Creatinine Ratio 7.8 (10-20); Bilirubin,Total 0.3 mg/dl (0.2-1); Calcium 7.9 mg/dl (8.5-10.1); Creatinine Clr Calc Pharmacy 9.4 ml/min; Est GFR (African American) 6.1; Est GFR (Non-African American) 5.3; Globulin 5.3 gm/dl (2.5-4.0); Potassium 4.8 mmol/L (3.5-5.1); Total Protein 7.6 gm/dl (6.4-8.2)
[2019-07-06] MEDS ORDERED: SODIUM CHLORIDE 0.9% 1000ML 1,000 ML IV PRN (07:00)
[2019-07-06] MEDS ORDERED: EPOETIN ALFA 10,000 UNITS/ML VIAL IV SCH (07:00)
[2019-07-06] MEDS: ASPIRIN 81 MG ECTAB PO SCH (07:57)
[2019-07-06] MEDS: BUMETANIDE 1 MG TAB PO SCH (07:57)
[2019-07-06] MEDS: SEVELAMER HCL 800 MG TABLET PO SCH ×3 (07:57→19:13)
[2019-07-06] MEDS: CHOLECALCIFEROL 1,000 UNITS TAB PO SCH (07:58)
[2019-07-06] MEDS: POLYETHYLENE (MIRALAX) 17 GM PACK PO SCH (07:58)
[2019-07-06] MEDS: NEPHROCAPS PO SCH (07:58)
[2019-07-06] MEDS: INSULIN ASPART 100 UNITS/ML 3 ML PEN SC SCH ×4 (07:59→21:13)
[2019-07-06] MEDS: INSULIN GLARGINE SOLOSTAR 100 UNITS/ML 3 ML PEN SC SCH (07:59)
[2019-07-06] MEDS: EUCERIN CR 120 GM JAR EXT SCH ×2 (07:59→20:56)
[2019-07-06] MEDS: LEVOTHYROXINE SODIUM 125 MCG TABLET PO SCH (08:07)
--- NOTE | 2019-07-06 10:11 | Nephrology Progress Note ---
Date of Service July 06, 2019 Assessment & Plan (1) End-stage renal disease on hemodialysis: 58 y o F with ESRd on HD TTS at [facility]. Admitted with rt hand ischemic ulcer, On IV Daptomycin and Ertapenem. Had debridement on 07/04/2019 Currently volume status, BP, electrolyte acceptable. --HD today, UF to EDW --continue on phos binder and renal cap. --SHANI 29642 units with HD today Will follow (2) Ischemic ulcer: -- On IV Daptomycin and Ertapenem. Dose adjusted per pharmacy -- Await Orthopedic surgery input (3) Hypertension: -- Blood pressure is relatively low but asymptomatic. Patient reports that she still makes a small amount of urine. Continue Metoprolol and loop diuretic (4) Atrial fibrillation: -- On warfarin therapy (5) Diabetes mellitus, type 2: Subjective Kortney Was seen and examined in her room this morning. Denies shortness of breath or chest pain. Appetite has been decent. Blood pressure stable. Review of Systems Review of Systems: Review of system was negative except mention above Physical Exam Constitutional: well developed, well nourished and + acute distress (With pain in right hand) Respiratory: normal respiratory effort, lungs clear to auscultation Cardiovascular: RRR, no murmur, no edema Musculoskeletal: right hand index finger purple with swelling. dressing in place Neurologic: moves all extremities and awake; not confused Psychiatric: A+Ox3, euthymic affect Results & Data Vital Signs (Past 12 Hours) Vital Signs Temp Pulse Pulse Resp BP BP Pulse Ox 07/06/19 08:00 93 H 07/06/19 07:13 37.2 C 88 18 136/79 96 07/06/19 05:04 37 C 93 H 20 118/72 91 07/06/19 01:23 86 07/05/19 23:01 36.7 C 88 18 102/58 L 90 PG Care Time/CCT Total # of Minutes Spent Total Time Spent with Patient: Total time spent is greater than 50% in coordination of care (as documented) at patient's floor/unit and/or counseling patient:
--- NOTE | 2019-07-06 14:29 | Orthopedic Progress Note ---
Date of Service July 06, 2019 Assessment & Plan (1) Osteomyelitis of hand, right, acute: POD #1 s/p 1. Right hand irrigation and debridement, diabetic neuropathic ulcer measuring 5 cm x 4 cm including skin, fascia and fourth metacarpophalangeal joint capsule. 2. Resection right fourth extensor tendon. 3. Incision and drainage fourth metacarpophalangeal joint septic arthritis. 4. Resection right fourth metacarpal head. 5. Resection of the right fourth proximal phalanx. 6. Tenosynovectomy of the right fourth flexor tendon Will discuss case with . 2nd washout might be needed. Question need for further OR on the 4th finger as well Continue IV antibiotics. Cx - MRSA (Daptomycin) D/C planning--uncertain at this time. (2) Ischemic finger: Subjective POD 2 s/p I/D Right hand. Pt resting comfortably. No new complaints. States her back feels "itchy". Hand painful off and on. Physical Exam Physical Exam: Dressing removed. Mild erythema noted. Mild dranage noted. No odor. Distal wound edges with thickened slough-like tissue. 4th finger noted to be dusky and purple with darkening at the tip. Tender on palpation. 5th finger pink with cap refill around 2 seconds. All packing removed from wound. Redressed with adpatic, 4x4's, vito. Pavithra Loco present during dressing change. Results & Data Vital Signs (Past 12 Hours) Vital Signs Temp Pulse Pulse Resp BP BP Pulse Ox 07/06/19 11:36 36.9 C 85 20 93/62 L 94 07/06/19 08:00 93 H 07/06/19 07:13 37.2 C 88 18 136/79 96 07/06/19 05:04 37 C 93 H 20 118/72 91
--- NOTE | 2019-07-06 15:43 | Family Medicine Progress Note ---
Date of Service July 06, 2019 Assessment & Plan (1) Cellulitis of right hand: 58-year-old female with DM, A. fib, hypothyroid, RLS, on dialysis for ESRD transferred to [facility] for right hand infection now on Daptomycin previously on Vancomycin and linezolid OSH and previously failed imipenem cilastin therapy. Orthopaedic surgery performed operative debridement 07/04/2019. Acute right hand infection - MRI results highly suspicious for osteomyelitis of the 4th metacarpal base, concern for septic arthritis, concern for infection of the tenosynovitis of the flexor tendon of the 4th digit - wound cultures grew MRSA from 07/01/2019 - no indications for vascular surgical intervention - Daptomycin 450 mg IV Q48h D/C'd ciprofloxacin per ID; not concerned about pseudomonas right hand wound/infection s/p "Irrigation and Debridement right hand diabetic neuropathic ulcer including skin/fascia/fourth metacarpal phalangeal joint capsule; Resection of Extensor tendon fourth digit; irrigation and debridement septic fourth metacarpal phalangeal joint; Resection fourth metacarpal head, resection fourth proximal phalanx; Tenosynovectomy of fourth flexor(Right)" - Henrik Izaguirre, DO Per ID will need six weeks of IV antibiotics daptomycin moving forward q 48 hour dosing ESRD - Access US performed on arrival indicates patent BPG and patent AVF. - HD TTS as scheduled per nephrology Colon Cancer Spoke with son who mentioned that patient has history of colon cancer diagnosed at [facility] in [place] Requested records transferred over Patient requesting follow up with [facility] oncology and made Dr. Vieyra aware who recommended outpatient scheduling. Diabetes - A1C 6.0 (07/02) - on insulin sliding scale A. fib w/ history of CVA Discussed with pharmacology the potential interaction between Warfarin and Cipro, but given the interaction is not a true drug-drug interaction and the risk of not properly anticoagulating a patient with a 9.8 % per year risk of stroke was concerning, Warfarin was continued. - home dose: 3 mg Warfarin w/ INR of 1.1 on arrival w/ goal INR 2-3 - INR 2.6 today, will step back to 3 mg moving forward so we do not overshoot and make patient supertherapeutic - Recheck INR daily Hypothyroid Continue home synthroid 250 mg RLS - continue Pramipexole .5 mg QHS FEN: dialysis diet DVT: Warfarin Dispo: Med-Surg Supervising Physician Co-Signing Physician Notes ATTENDING NOTE I was present with the resident and confirmed niño portions of the history and exam. I agree with the above impression and plan. I also discussed the case with the ID oracle consultant. Patient is postop day #2; operative note is reviewed and it sounds as if a second washout may be needed and or surgical attention to the fourth digit as well. PLAN 1) Dressing and packing change per orthopedics; will await further recommendations regarding possible need for additional surgery. 2) Pain management. 3) HD today. 4) Continue current daptomycin. Subjective Kortney Ardon is doing okay today, her hand has less pain at rest than it did yesterday but she is endorsing more tenderness to palpation. She denies any fevers, chills, abdominal pain, nausea or vomiting. Her breathing continues to be at baseline and she does not endorse any chest pain. Review of Systems Review of Systems: All systems reviewed & are unremarkable except as noted in HPI & below Physical Exam Physical Exam: Constitutional: Patient appears stated age resting comfortably in bed no concerns at this time Eyes: Pupils equal round reactive to light, anicteric sclerae, extraocular muscle motions intact bilaterally Respiratory: Chest expansion symmetric, lung sounds vesicular in all lung castellano Cardiovascular: Regular rate regular rhythm heart sounds dual no murmurs rubs skips or gallops Gastrointestinal: Abdomen soft nontender, no hepatosplenomegaly, no masses detected MSK: Patient recently had removal of distal fourth metacarpal and proximal phalanges as well as extensor tendon Patient's fourth phalanx is quite ecchymotic but she is able to move it and has sensation intact Results & Data Vital Signs (Past 12 Hours) Vital Signs Temp Pulse Pulse Pulse Resp BP BP 07/06/19 15:26 82 07/06/19 15:00 76 130/66 07/06/19 14:57 36.9 C 81 07/06/19 14:39 81 125/65 07/06/19 11:36 36.9 C 85 20 93/62 L 07/06/19 08:00 93 H 07/06/19 07:13 37.2 C 88 18 07/06/19 05:04 37 C 93 H 20 118/72 BP Pulse Ox 07/06/19 15:26 07/06/19 15:00 07/06/19 14:57 07/06/19 14:39 07/06/19 11:36 94 07/06/19 08:00 07/06/19 07:13 136/79 96 07/06/19 05:04 91 PG Care Time/CCT Total # of Minutes Spent Total Time Spent with Patient: Total time spent is greater than 50% in coordination of care (as documented) at patient's floor/unit and/or counseling patient: Resident Activity Tracking Resident Involvement: Resident Care Provided Care Provided: Adult Hospital Medicine
[2019-07-06] MEDS ORDERED: WARFARIN SOD 5 MG TAB PO SCH (16:00)
[2019-07-06] MEDS: METOPROLOL TARTRATE 25 MG TAB PO SCH ×2 (18:48→20:57)
[2019-07-06] MEDS: PRAMIPEXOLE DIHYDROCHLO 0.25 MG TAB PO SCH (20:57)
[2019-07-07] MEDS: HYDROmorphone INJ 0.5 MG/0.5 ML SYR IV PRN ×2 (01:38→09:20)
[2019-07-07 01:48] LABS: Basophils # (auto) 0.03 K/uL (0-0.2); Basophils % (auto) 0.3 %; Eosinophils # (auto) 0.11 K/uL (0-0.5); Eosinophils % (auto) 1.1 %; Hematocrit (blood only) 27.3 % (37-47); Hemoglobin 8.5 g/dL (12.0-16.0); Immature Granulocytes # (auto) 0.18 K/uL (0.00-0.02); Immature Granulocytes % (auto) 1.8 %; Lymphocytes # (auto) 1.71 K/uL (1.2-3.4); Lymphocytes % (auto) 17.1 %; Mean Corpuscular Hgb Conc 31.1 g/dL (32-36); Mean Corpuscular Volume 97.2 fL (80-100); Mean Platelet Volume 9.6 fL (7.4-10.4); Monocytes # (auto) 0.87 K/uL (0.11-0.59); Monocytes % (auto) 8.7 %; Neutrophils # (auto) 7.09 K/uL (1.4-6.5); Platelet Count 295 K/uL (130-400); RDW Standard Deviation 56.9 fL (36.4-46.3); Red Blood Count 2.81 M/uL (4.2-5.4); White Blood Count 9.99 K/uL (4.8-10.8)
[2019-07-07 02:06] LABS: Prothrombin Time 36.8 Seconds (9.0-12.0)
[2019-07-07 02:09] LABS: BUN Creatinine Ratio 5.8 (10-20); Calcium 8.2 mg/dl (8.5-10.1); Creatinine Clr Calc Pharmacy 17.2 ml/min; Est GFR (African American) 12.7; Est GFR (Non-African American) 10.9
[2019-07-07 02:29] LABS: Potassium 3.9 mmol/L (3.5-5.1)
[2019-07-07] MEDS: LEVOTHYROXINE SODIUM 125 MCG TABLET PO SCH (05:51)
[2019-07-07] MEDS: CHOLECALCIFEROL 1,000 UNITS TAB PO SCH (08:11)
[2019-07-07] MEDS: ASPIRIN 81 MG ECTAB PO SCH (08:11)
[2019-07-07] MEDS: SEVELAMER HCL 800 MG TABLET PO SCH ×3 (08:11→18:22)
[2019-07-07] MEDS: METOPROLOL TARTRATE 25 MG TAB PO SCH ×2 (08:11→20:20)
[2019-07-07] MEDS: BUMETANIDE 1 MG TAB PO SCH (08:11)
[2019-07-07] MEDS: POLYETHYLENE (MIRALAX) 17 GM PACK PO SCH (08:11)
[2019-07-07] MEDS: NEPHROCAPS PO SCH (08:12)
[2019-07-07] MEDS: EUCERIN CR 120 GM JAR EXT SCH ×2 (08:14→20:19)
[2019-07-07] MEDS: INSULIN ASPART 100 UNITS/ML 3 ML PEN SC SCH ×4 (08:17→20:23)
[2019-07-07] MEDS ORDERED: INSULIN GLARGINE SOLOSTAR 100 UNITS/ML 3 ML PEN SC SCH (09:00)
[2019-07-07] MEDS: BISACODYL 5 MG TABEC PO PRN (09:20)
--- NOTE | 2019-07-07 10:17 | Nephrology Progress Note ---
Date of Service July 07, 2019 Assessment & Plan (1) End-stage renal disease on hemodialysis: 58 y o F with ESRd on HD TTS at [facility]. Admitted with rt hand ischemic ulcer, On IV Daptomycin and Ertapenem. Had debridement on 07/04/2019, now has ischemic ring finger and continued pain. Currently volume status, BP, electrolyte acceptable. --HD tomorrow. --continue on phos binder and renal cap. --SHANI 4000 units with HD tomorrow Will follow (2) Ischemic ulcer: -- On IV Daptomycin and Ertapenem. Dose adjusted per pharmacy -- Await Orthopedic surgery input (3) Hypertension: -- Blood pressure is relatively low but asymptomatic. Patient reports that she still makes a small amount of urine. Continue Metoprolol and loop diuretic (4) Atrial fibrillation: -- On warfarin therapy (5) Diabetes mellitus, type 2: Subjective Kortney Was seen and examined in her room this morning. Continues to have severe pain in her rt hand and has occasional hallucination. Denies shortness of breath or chest pain. Appetite has been decent. Blood pressure stable. Review of Systems Review of Systems: Review of system was negative except mention above Physical Exam Constitutional: well developed, well nourished and + acute distress (With pain in right hand) Respiratory: normal respiratory effort, lungs clear to auscultation Cardiovascular: RRR, no murmur, no edema Musculoskeletal: Rt hand in dressing, ring finger blackish and purplish Neurologic: moves all extremities and awake; not confused Psychiatric: A+Ox3, euthymic affect Results & Data Vital Signs (Past 12 Hours) Vital Signs Temp Pulse Pulse Pulse Resp BP BP 07/07/19 07:18 36.8 C 77 16 102/56 L 07/07/19 03:57 36.9 C 79 18 96/62 L 07/07/19 02:21 85 07/06/19 23:38 89 132/84 07/06/19 23:31 37 C 83 20 94/49 L Pulse Ox 07/07/19 07:18 96 07/07/19 03:57 97 07/07/19 02:21 07/06/19 23:38 07/06/19 23:31 98 PG Care Time/CCT Total # of Minutes Spent Total Time Spent with Patient: Total time spent is greater than 50% in coordination of care (as documented) at patient's floor/unit and/or counseling patient:
--- NOTE | 2019-07-07 10:27 | Infectious Disease Progress Nt ---
Date of Service July 07, 2019 Assessment & Plan (1) Osteomyelitis of hand, right, acute: will stop cipro, continue dapto at Q48 hour dosing, will need 6 weeks of IV abx post op, will need weekly cbc, cmp, esr, cpk while on abx. can follow with ID post d/c. discussed with primary. may require additional OR, will follow. Subjective pt remains on Dapto, tolerating well, renal dosing. afebrile. wbc 9.9. Ortho following, may need sencond debridement. Blood cultures remain negative, wound culture 07/01, 07/04 growing MRSA. no new micro. Results & Data Vital Signs (Past 12 Hours) Vital Signs Temp Pulse Pulse Pulse Resp BP BP 07/07/19 07:18 36.8 C 77 16 102/56 L 07/07/19 03:57 36.9 C 79 18 96/62 L 07/07/19 02:21 85 07/06/19 23:38 89 132/84 07/06/19 23:31 37 C 83 20 94/49 L Pulse Ox 07/07/19 07:18 96 07/07/19 03:57 97 07/07/19 02:21 07/06/19 23:38 07/06/19 23:31 98 Laboratory Results Microbiology 07/01/19 20:26 Blood Aerobic Blood Culture - Final No growth in Aerobic bottle after 5 days. 07/01/19 20:26 Blood Anaerobic Blood Culture - Final 07/04/19 12:30 Finger,Right Ring Gram Stain - Final 07/04/19 12:30 Finger,Right Ring Aerobic and Anaerobic Culture - Preliminary Staph aureus MRSA 07/01/19 19:52 Hand,Right Gram Stain - Final 07/01/19 19:52 Hand,Right Wound Culture - Final Staph aureus MRSA PG Care Time/CCT Total # of Minutes Spent Total Time Spent with Patient: Total time spent is greater than 50% in coordination of care (as documented) at patient's floor/unit and/or counseling patient:
--- NOTE | 2019-07-07 11:07 | Pharmacy Report ---
Glycemic Control Progress Note - Date of Service July 07, 2019 - Scope Glycemic Pharmacist consulted for glycemic control to write orders per [facility] inpatient glycemic control protocol. - Objective Accuchecks BSG(last 24 hours):: 07/06/19 07/06/19 07/06/19 11:37 16:04 20:20 Glucose POC Glucose 101 H 112 H 107 H 07/07/19 07/07/19 01:33 07:41 Glucose 130 H POC Glucose 114 H HbA1c:: Hemoglobin A1c 6.0 % (4.5-5.6) H 07/02/19 06:14 - Recent Pertinent Medications The patient is currently receiving: * Basal insulin: Lantus 10 units every 24 hours (15 units if blood sugar over 130 mg/dL) * Correctional Insulin: Novolog Correction per scale ACHS Goal Range: Low 110 mg/dL - High 140 mg/dL Correction Factor: 25 mg/dL/unit * Prandial insulin: Per carb ratio of 1 unit per 8 grams CHO consumed - Outpatient Anti-Diabetic Meds Lantus 20 units BID + Humalog 7-9 units TIDM - Assessment & Plan ASSESSMENT: * See progress note from 07/02/19 for more background info, in short: * Pt receiving SQ basal bolus insulin regimen for hyperglycemia secondary to baseline DM (outpatient regimen on hold),stress/infection (on daptomycin for hand infection). * Patient is currently receiving an average of 21 units of insulin per day * 15 units of basal insulin * 6 units of prandial/correctional insulin * BSGs ranging 101 - 166 mg/dl over the past 24hrs * Changes needed to insulin regimen: * AM Fasting BSG = 114 mg/dl. This is in goal range for patient based on inpatient targets and co-morbidities. It appears that 10 units of Lantus is not enough but 15 units is too much. Will schedule 13 units of Lantus daily * Post-prandial BSGs are in range therefore no changes needed to CF/CR. * Total daily dose = ~20 units. PLAN FOR INPATIENT GLYCEMIC CONTROL: * Starting Lantus 13 units SQ daily * Continuing correction factor of 25 mg/dl/unit * Continuing carb ratio of 1 unit per 8 grams CHO consumed * Continuing goal range of Low 110 mg/dL - High 140 mg/dL RECOMMENDATIONS FOR DISCHARGE: * Patient end stage renal on dialysis - recommend continuing current regimen with close outpatient follow up dosed based on blood sugars. * Please note that the plan above was derived based on current level of insulin resistance and hospital stress. These recommendations are appropriate for inpatient admission only. Plan of care upon discharge will need to be reassessed to avoid potential outpatient hypo/hyperglycemia. Thank you.
--- NOTE | 2019-07-07 14:35 | Orthopedic Progress Note ---
Date of Service July 07, 2019 Assessment & Plan (1) Osteomyelitis of hand, right, acute: POD #1 s/p 1. Right hand irrigation and debridement, diabetic neuropathic ulcer measuring 5 cm x 4 cm including skin, fascia and fourth metacarpophalangeal joint capsule. 2. Resection right fourth extensor tendon. 3. Incision and drainage fourth metacarpophalangeal joint septic arthritis. 4. Resection right fourth metacarpal head. 5. Resection of the right fourth proximal phalanx. 6. Tenosynovectomy of the right fourth flexor tendon 7. Ischemic right 4th finger. Discussed case with . He feels pt wound benefit from a hand surgeon however Dr. Colon is unavailable at this time to assist with this patient. Possible need for transfer to tertiary facility for further hand surgery. Continue IV antibiotics. Cx - MRSA (Daptomycin) D/C planning--uncertain at this time. (2) Ischemic finger: Subjective Postop day 2 status post irrigation debridement right hand Patient is currently sitting up in a chair at the bedside and appears comfortable. No new complaints. Physical Exam Physical Exam: Dressings were removed. No overt drainage noted on the dressings however dressings have been just changed by the nursing staff just a little bit earlier than my arrival. Overall the open wound on the top of the hand looks little better today with less erythema and looks a bit pulp drier firer. No overt purulence noted. Small area of eschar is noted on the proximal portion of the wound. The fourth finger remains purple with the fingertip being almost black. She has a small dry ulceration on the medial aspect near the PIP phalanx that is not open. Obvious discomfort with palpation of that finger. Wound care was present during the dressing change noting some overall improvement with the dorsum of the hand wound but noting the fourth finger overall remains the same with the dry ulceration being more prominent. Wounds redressed. Results & Data Vital Signs (Past 12 Hours) Vital Signs Temp Pulse Pulse Resp BP BP Pulse Ox 07/07/19 11:32 36.8 C 73 18 115/58 L 97 07/07/19 09:00 73 07/07/19 07:18 36.8 C 77 16 102/56 L 96 07/07/19 03:57 36.9 C 79 18 96/62 L 97
--- NOTE | 2019-07-07 17:17 | Family Medicine Progress Note ---
Date of Service July 07, 2019 Assessment & Plan (1) Cellulitis of right hand: 58-year-old female with DM, A. fib, hypothyroid, RLS, on dialysis for ESRD transferred to [facility] for right hand infection now on Daptomycin previously on Vancomycin and linezolid OSH and previously failed imipenem cilastin therapy. Orthopaedic surgery performed operative debridement 07/04/2019. Acute right hand infection - MRI results highly suspicious for osteomyelitis of the 4th metacarpal base, concern for septic arthritis, concern for infection of the tenosynovitis of the flexor tendon of the 4th digit - wound cultures grew MRSA from 07/01/2019 - no indications for vascular surgical intervention - Daptomycin 450 mg IV Q48h D/C'd ciprofloxacin per ID; not concerned about pseudomonas . Per ID will need six weeks of IV antibiotics daptomycin moving forward q 48 hour dosing. Will need weekly cbc, cmp, esr, cpk while on abx Ortho: feels pt wound benefit from a hand surgeon however Dr. Colon is unavailable at this time to assist with this patient. Possible need for transfer to tertiary facility for further hand surgery ESRD - Access US performed on arrival indicates patent BPG and patent AVF. - HD TTS as scheduled per nephrology Colon Cancer Spoke with son who mentioned that patient has history of colon cancer diagnosed at [facility] in [place] Requested records transferred over Patient requesting follow up with [facility] oncology and made Dr. Vieyra aware who recommended outpatient scheduling. Diabetes - A1C 6.0 (07/02) - on insulin sliding scale A. fib w/ history of CVA Discussed with pharmacology the potential interaction between Warfarin and Cipro, but given the interaction is not a true drug-drug interaction and the risk of not properly anticoagulating a patient with a 9.8 % per year risk of stroke was concerning, Warfarin was continued. - home dose: 3 mg Warfarin w/ INR of 1.1 on arrival w/ goal INR 2-3 - INR 4.0 today, will step back to 3 mg moving forward so we do not overshoot and make patient supertherapeutic - Recheck INR daily Hypothyroid Continue home synthroid 250 mg RLS - continue Pramipexole .5 mg QHS FEN: dialysis diet DVT: Warfarin FULL CODE Dispo: Med-Surg Supervising Physician Co-Signing Physician Notes ATTENDING NOTE I was present with the resident and confirmed niño portions of the history and exam. I agree with the above impression and plan. I also discussed the case with the ID farm consultant as well as orthopedics. The patient was out of bed when I saw her this morning and actually more cheerful than she had been previously. She tells me that she usually feels better on today's postdialysis, which makes sense. Her pain is better this morning compared to yesterday. Nursing notes that the patient had an episode of confusion at which time she thought there were ants climbing the beltran. This was an isolated episode and seemed to correspond to recent pain medication administration. Nursing will keep an eye on this and advise if this recurs. Patient is postop day #3; operative note is reviewed which documents some improvement though concerned that additional procedures may be needed. It was suggested that these additional procedures may not be able to be performed at this facility due to lack of a dedicated hand specialist combined with the patient's multiple comorbidities. Will reassess in AM. and discuss; if transfer is needed we will have to coordinate with nephrology regarding dialysis and certainly discussed with the patient her preferences. Subjective 58 yo F found in bed this AM in NAD. No reported overnight events. POD 3 s/p I&D R hand. Notes ongoing R hand pain. No other acute concerns or complaints. Review of Systems Review of Systems: All systems reviewed & are unremarkable except as noted in HPI & below Physical Exam Constitutional: WD/WN, vitals as above Neck: trachea midline, no thyromegaly Respiratory: normal respiratory effort, lungs clear to auscultation Cardiovascular: RRR, no murmur, no edema Gastrointestinal (Abdomen): normal bowel sounds, soft, nontender, no hepatosplenomegaly Musculoskeletal: Patient recently had removal of distal fourth metacarpal and proximal phalanges as well as extensor tendon Patient's fourth phalanx is quite ecchymotic but she is able to move it and has sensation intact R hand bandaged w/o d/c. Tender to touch from outside. Psychiatric: A+Ox3, euthymic affect Results & Data Vital Signs (Past 12 Hours) Vital Signs Temp Pulse Pulse Resp BP BP Pulse Ox 07/07/19 16:59 70 07/07/19 15:12 36.9 C 73 16 173/84 H 97 07/07/19 11:32 36.8 C 73 18 115/58 L 97 07/07/19 09:00 73 07/07/19 07:18 36.8 C 77 16 102/56 L 96 Laboratory Results Laboratory Results - last 24 hr 07/06/19 07/07/19 07/07/19 20:20 01:33 01:33 WBC 9.99 RBC 2.81 L Hgb 8.5 L Hct 27.3 L MCV 97.2 MCH 30.2 MCHC 31.1 L RDW Std Deviation 56.9 H RDW Coeff of Tommy 16.0 H Plt Count 295 MPV 9.6 Immature Gran % (Auto) 1.8 Neut % (Auto) 71.0 Lymph % (Auto) 17.1 [place] % (Auto) 8.7 Eos % (Auto) 1.1 Baso % (Auto) 0.3 Immature Gran # (Auto) 0.18 H Neut # (Auto) 7.09 H Lymph # (Auto) 1.71 [place] # (Auto) 0.87 H Eos # (Auto) 0.11 Baso # (Auto) 0.03 PT 36.8 H INR 4.0 H Sodium Potassium Chloride Carbon Dioxide Anion Gap BUN Creatinine Est Cr Clr Drug Dosing Est GFR ( Amer) Est GFR (Non-Af Amer) BUN/Creatinine Ratio Glucose POC Glucose 107 H Calcium 07/07/19 07/07/19 07/07/19 01:33 07:41 11:44 WBC RBC Hgb Hct MCV MCH MCHC RDW Std Deviation RDW Coeff of Tommy Plt Count MPV Immature Gran % (Auto) Neut % (Auto) Lymph % (Auto) [place] % (Auto) Eos % (Auto) Baso % (Auto) Immature Gran # (Auto) Neut # (Auto) Lymph # (Auto) [place] # (Auto) Eos # (Auto) Baso # (Auto) PT INR Sodium 138 Potassium 3.9 D Chloride 101 Carbon Dioxide 27 Anion Gap 10.0 BUN 24 H D Creatinine 4.16 H D Est Cr Clr Drug Dosing 17.2 Est GFR ( Amer) 12.7 Est GFR (Non-Af Amer) 10.9 BUN/Creatinine Ratio 5.8 L Glucose 130 H POC Glucose 114 H 106 H Calcium 8.2 L 07/07/19 16:44 WBC RBC Hgb Hct MCV MCH MCHC RDW Std Deviation RDW Coeff of Tommy Plt Count MPV Immature Gran % (Auto) Neut % (Auto) Lymph % (Auto) [place] % (Auto) Eos % (Auto) Baso % (Auto) Immature Gran # (Auto) Neut # (Auto) Lymph # (Auto) [place] # (Auto) Eos # (Auto) Baso # (Auto) PT INR Sodium Potassium Chloride Carbon Dioxide Anion Gap BUN Creatinine Est Cr Clr Drug Dosing Est GFR ( Amer) Est GFR (Non-Af Amer) BUN/Creatinine Ratio Glucose POC Glucose 146 H Calcium Medications Administered Current Inpatient Medications Acetaminophen (Tylenol) 650 mg PO Q4H PRN PRN Reason: Pain or Fever Stop: 07/31/19 19:57 Last Admin: 07/02/19 16:35 Dose: 650 mg Documented by: Aspirin (Ecotrin Ectab) 81 mg PO DAILY DELANEY Stop: 08/01/19 08:59 Last Admin: 07/07/19 08:11 Dose: 81 mg Documented by: Bisacodyl (Dulcolax) 10 mg [place] DAILY PRN PRN Reason: Constipation Stop: 07/31/19 20:13 Bisacodyl (Dulcolax) 5 mg PO DAILY PRN PRN Reason: Constipation Stop: 07/31/19 20:13 Last Admin: 07/07/19 09:20 Dose: 5 mg Documented by: Bumetanide (Bumex) 2 mg PO DAILY DELANEY Stop: 08/01/19 08:59 Last Admin: 07/07/19 08:11 Dose: 2 mg Documented by: Dextrose (Dextrose 50%) 25 - 50 ml IV UD PRN; Protocol PRN Reason: Hypoglycemia Protocol Stop: 07/31/19 20:08 Diphenhydramine HCl (Benadryl) 25 mg IV Q4H PRN PRN Reason: Allergic Reaction Stop: 07/31/19 20:37 Last Admin: 07/06/19 01:43 Dose: 25 mg Documented by: Glucose (Dex4 Glucose) 4 - 8 tabs PO UD PRN; Protocol PRN Reason: Hypoglycemia Protocol Stop: 07/31/19 20:08 Glucose (Glucose 40%) 15 - 30 gm PO UD PRN; Protocol PRN Reason: Hypoglycemia Protocol Stop: 07/31/19 20:08 Hydromorphone HCl (Dilaudid) 0.5 mg IV Q2H PRN PRN Reason: Pain Stop: 07/18/19 22:27 Last Admin: 07/07/19 09:20 Dose: 0.5 mg Documented by: Daptomycin 450 mg/ Syringe 9 mls @ 0 mls/min IV Q48H [facility]; Protocol Stop: 07/11/19 20:59 Last Admin: 07/05/19 20:55 Dose: 2 mls/min Documented by: Sodium Chloride (Nss 1000ml) 1,000 mls @ 0 mls/hr IV .Q0M PRN PRN Reason: For Hemodialysis Use ONLY Stop: 07/08/19 12:59 Insulin Aspart (Novolog Flexpen) 0 units SC ACHS [facility]; Protocol Stop: 08/01/19 07:29 Last Admin: 07/07/19 12:26 Dose: 4 units Documented by: Insulin Glargine (Lantus Solostar Pen) 13 units SC QAM [facility]; Protocol Stop: 08/06/19 08:59 Last Admin: 07/07/19 08:16 Dose: 13 units Documented by: Levothyroxine Sodium (Synthroid) 250 mcg PO DAILYBB [facility] Stop: 08/01/19 06:29 Last Admin: 07/07/19 05:51 Dose: 250 mcg Documented by: Lidocaine/Prilocaine (Emla 2.5%) 1 ea EXT DAILY PRN PRN Reason: PRIOR TO DIALYSIS Stop: 07/31/19 20:13 Metoprolol Tartrate (Lopressor) 25 mg PO BID [facility] Stop: 07/31/19 20:59 Last Admin: 07/07/19 08:11 Dose: 25 mg Documented by: Miscellaneous (Carbohydrates For Hypoglycemia) 15 - 30 gm PO UD PRN PRN Reason: Hypoglycemia Treatment Stop: 07/31/19 20:08 Miscellaneous Information (Consult Glycemic Management Pharmacy) 1 ea N/A UD PRN; Protocol PRN Reason: Consult Stop: 07/31/19 21:14 Multi-Ingredient Cream (Hydrocerin) 1 appln EXT BID [facility] Stop: 08/01/19 20:59 Last Admin: 07/07/19 08:14 Dose: Not Given Documented by: Polyethylene Glycol (Miralax Powder Packet) 17 gm PO QAM [facility] Stop: 08/01/19 08:59 Last Admin: 07/07/19 08:11 Dose: 17 gm Documented by: Pramipexole Dihydrochloride (Mirapex) 0.25 mg PO HS [facility] Stop: 07/31/19 20:59 Last Admin: 07/06/19 20:57 Dose: 0.25 mg Documented by: Sennosides (Senokot) 8.6 mg PO HS PRN PRN Reason: Constipation Stop: 07/31/19 20:13 Sevelamer HCl (Renagel) 800 mg PO TIDM [facility] Stop: 08/01/19 07:59 Last Admin: 07/07/19 12:27 Dose: 800 mg Documented by: Vitamin B Complex/Folic Acid (Nephrocaps) 1 cap PO QAM [facility] Stop: 08/02/19 10:59 Last Admin: 07/07/19 08:12 Dose: 1 cap Documented by: Vitamin D (Vitamin D3) 2,000 units PO QAM [facility] Stop: 08/01/19 08:59 Last Admin: 07/07/19 08:11 Dose: 2,000 units Documented by: Warfarin Sodium (Coumadin) 5 mg PO DAILY@1600 [facility] Stop: 08/05/19 15:59 Last Admin: 07/06/19 19:15 Dose: 5 mg Documented by: PG Care Time/CCT Total # of Minutes Spent Total Time Spent with Patient: Total time spent is greater than 50% in coordination of care (as documented) at patient's floor/unit and/or counseling patient: Resident Activity Tracking Resident Involvement: Resident Care Provided Care Provided: Adult Hospital Medicine
[2019-07-07] MEDS: PRAMIPEXOLE DIHYDROCHLO 0.25 MG TAB PO SCH (20:22)
[2019-07-07] MEDS: DAPTOmycin 450 MG in SYRINGE 0 ML IV SCH (20:23)
[2019-07-08] MEDS: ACETAMINOPHEN 325 MG TAB PO PRN (02:39)
[2019-07-08] MEDS: LEVOTHYROXINE SODIUM 125 MCG TABLET PO SCH (05:59)
[2019-07-08] MEDS ORDERED: SODIUM CHLORIDE 0.9% 1000ML 1,000 ML IV PRN (07:00)
[2019-07-08 07:47] LABS: Basophils # (auto) 0.02 K/uL (0-0.2); Basophils % (auto) 0.2 %; Eosinophils # (auto) 0.16 K/uL (0-0.5); Eosinophils % (auto) 1.8 %; Hematocrit (blood only) 28.9 % (37-47); Immature Granulocytes # (auto) 0.09 K/uL (0.00-0.02); Lymphocytes # (auto) 2.02 K/uL (1.2-3.4); Lymphocytes % (auto) 22.8 %; Mean Corpuscular Hgb Conc 31.1 g/dL (32-36); Mean Platelet Volume 10.1 fL (7.4-10.4); Monocytes # (auto) 0.85 K/uL (0.11-0.59); Monocytes % (auto) 9.6 %; Neutrophils # (auto) 5.73 K/uL (1.4-6.5); Neutrophils % (auto) 64.6 %; Platelet Count 272 K/uL (130-400); RDW Coefficient of Variation 15.8 % (11.5-14.5); Red Blood Count 2.98 M/uL (4.2-5.4); White Blood Count 8.87 K/uL (4.8-10.8)
[2019-07-08 08:06] LABS: Prothrombin Time 78.6 Seconds (9.0-12.0)
[2019-07-08 08:35] LABS: BUN Creatinine Ratio 5.5 (10-20); Calcium 8.1 mg/dl (8.5-10.1); Creatinine Clr Calc Pharmacy 12.3 ml/min; Est GFR (African American) 8.7; Est GFR (Non-African American) 7.5; Potassium 3.8 mmol/L (3.5-5.1)
[2019-07-08] MEDS ORDERED: PHYTONADIONE 5 MG TAB PO ONE (09:00)
[2019-07-08] MEDS: NEPHROCAPS PO SCH (09:02)
[2019-07-08] MEDS: ASPIRIN 81 MG ECTAB PO SCH (09:03)
[2019-07-08] MEDS: POLYETHYLENE (MIRALAX) 17 GM PACK PO SCH (09:03)
[2019-07-08] MEDS: CHOLECALCIFEROL 1,000 UNITS TAB PO SCH (09:03)
[2019-07-08] MEDS: SEVELAMER HCL 800 MG TABLET PO SCH ×3 (09:03→18:34)
[2019-07-08] MEDS: METOPROLOL TARTRATE 25 MG TAB PO SCH ×2 (09:04→20:49)
[2019-07-08] MEDS: EUCERIN CR 120 GM JAR EXT SCH ×3 (09:04→21:51)
[2019-07-08] MEDS: BUMETANIDE 1 MG TAB PO SCH (09:04)
[2019-07-08] MEDS: INSULIN ASPART 100 UNITS/ML 3 ML PEN SC SCH ×4 (09:07→22:08)
[2019-07-08] MEDS: INSULIN GLARGINE SOLOSTAR 100 UNITS/ML 3 ML PEN SC SCH (09:08)
[2019-07-08] MEDS: BISACODYL 5 MG TABEC PO PRN (09:14)
--- NOTE | 2019-07-08 12:17 | Nephrology Progress Note ---
Date of Service July 08, 2019 Assessment & Plan (1) End-stage renal disease on hemodialysis: 58 y o F with ESRD on HD TTS. Admitted with rt hand ischemic ulcer. On IV Daptomycin and Ertapenem. Had debridement on 07/04/2019, now has ischemic ring finger and continued pain. Orders for HD today have been entered into the EMR and discussed with the dialysis nurse. UF goal 2 L. (2) Ischemic ulcer: -- On IV Daptomycin and Ertapenem. Dose adjusted per pharmacy -- Await Orthopedic surgery input (3) Hypertension: -- Blood pressure is relatively low but asymptomatic. Continue Metoprolol and loop diuretic (4) Atrial fibrillation: -- On warfarin therapy (5) Diabetes mellitus, type 2: Subjective No acute events overnight. No fevers or chills. Overall feels reasonably well with continued pain. Review of Systems Review of Systems: All systems reviewed & are unremarkable except as noted in HPI & below Physical Exam Constitutional: well developed and + obese; no acute distress Eyes: no scleral abnormality and no corneal abnormality ENMT: Ears: + hearing impairment Mouth: no oral mucosal abnormality and oral mucous membranes not dry Neck: normal visual inspection; + trachea not midline Respiratory: normal respiratory effort Auscultation: lungs clear to auscultation bilaterally Cardiovascular: Rate/Rhythm: regular rate Heart Sounds: normal S1, normal S2 and + murmur Extremities: + AV fistula Musculoskeletal: Extremities: no cyanosis and no clubbing Skin: normal turgor; no lesions Neurologic: Motor/Sensory: no tremor and no asterixis Psychiatric: Orientation: alert and oriented x 3 Results & Data Vital Signs (Past 12 Hours) Vital Signs Temp Pulse Pulse Resp BP BP Pulse Ox 07/08/19 08:00 76 07/08/19 07:32 36.5 C 73 18 95/46 L 94 07/08/19 06:12 78 07/08/19 05:57 97 07/08/19 03:06 36.7 C 82 18 87/44 L 97 Laboratory Results Laboratory Results - last 24 hr 07/07/19 07/07/19 07/08/19 16:44 20:23 07:16 WBC 8.87 RBC 2.98 L Hgb 9.0 L Hct 28.9 L MCV 97.0 MCH 30.2 MCHC 31.1 L RDW Std Deviation 56.0 H RDW Coeff of Tommy 15.8 H Plt Count 272 MPV 10.1 Immature Gran % (Auto) 1.0 Neut % (Auto) 64.6 Lymph % (Auto) 22.8 Anderson % (Auto) 9.6 Eos % (Auto) 1.8 Baso % (Auto) 0.2 Immature Gran # (Auto) 0.09 H Neut # (Auto) 5.73 Lymph # (Auto) 2.02 Anderson # (Auto) 0.85 H Eos # (Auto) 0.16 Baso # (Auto) 0.02 PT INR Sodium Potassium Chloride Carbon Dioxide Anion Gap BUN Creatinine Est Cr Clr Drug Dosing Est GFR ( Amer) Est GFR (Non-Af Amer) BUN/Creatinine Ratio Glucose POC Glucose 146 H 168 H Calcium 07/08/19 07/08/19 07/08/19 07:16 07:16 07:51 WBC RBC Hgb Hct MCV MCH MCHC RDW Std Deviation RDW Coeff of Tommy Plt Count MPV Immature Gran % (Auto) Neut % (Auto) Lymph % (Auto) Anderson % (Auto) Eos % (Auto) Baso % (Auto) Immature Gran # (Auto) Neut # (Auto) Lymph # (Auto) Anderson # (Auto) Eos # (Auto) Baso # (Auto) PT 78.6 H INR 9.0 H* Sodium 138 Potassium 3.8 Chloride 104 Carbon Dioxide 25 Anion Gap 9.0 BUN 31 H Creatinine 5.68 H* D Est Cr Clr Drug Dosing 12.3 Est GFR ( Amer) 8.7 Est GFR (Non-Af Amer) 7.5 BUN/Creatinine Ratio 5.5 L Glucose 89 POC Glucose 92 Calcium 8.1 L 07/08/19 11:44 WBC RBC Hgb Hct MCV MCH MCHC RDW Std Deviation RDW Coeff of Tommy Plt Count MPV Immature Gran % (Auto) Neut % (Auto) Lymph % (Auto) Anderson % (Auto) Eos % (Auto) Baso % (Auto) Immature Gran # (Auto) Neut # (Auto) Lymph # (Auto) [place] # (Auto) Eos # (Auto) Baso # (Auto) PT INR Sodium Potassium Chloride Carbon Dioxide Anion Gap BUN Creatinine Est Cr Clr Drug Dosing Est GFR ( Amer) Est GFR (Non-Af Amer) BUN/Creatinine Ratio Glucose POC Glucose 142 H Calcium PG Care Time/CCT Total # of Minutes Spent Total Time Spent with Patient: Total time spent is greater than 50% in c oordination of care (as documented) at patient's floor/unit and/or counseling patient:
--- NOTE | 2019-07-08 13:50 | Family Medicine Progress Note ---
Date of Service July 08, 2019 Assessment & Plan (1) Cellulitis of right hand: 58-year-old female with DM, A. fib, hypothyroid, RLS, on dialysis for ESRD transferred to [facility] for right hand infection now on Daptomycin previously on Vancomycin and linezolid OSH and previously failed imipenem cilastin therapy. Orthopaedic surgery performed operative debridement 07/04/2019. Acute right hand infection - MRI results highly suspicious for osteomyelitis of the 4th metacarpal base, concern for septic arthritis, concern for infection of the tenosynovitis of the flexor tendon of the 4th digit - wound cultures grew MRSA from 07/01/2019 - no indications for vascular surgical intervention - Daptomycin 450 mg IV Q48h -D/C'd ciprofloxacin per ID; not concerned about pseudomonas . Per ID will need six weeks of IV antibiotics daptomycin moving forward q 48 hour dosing. -Will need weekly cbc, cmp, esr, cpk while on abx -Ortho: feels pt wound benefit from a hand surgeon however Dr. Colon is unavailable at this time to assist with this patient. Possible need for transfer to tertiary facility for further hand surgery -Pt ok with plan for transfer. Awaiting further ortho recs. This will likely happen tomorrow so that it does not coincide with HD TTS schedule ESRD - Access US performed on arrival indicates patent BPG and patent AVF. - HD TTS as scheduled per nephrology Colon Cancer Spoke with son who mentioned that patient has history of colon cancer diagnosed at [facility] [place] Requested records transferred over Patient requesting follow up with [facility] oncology and made Dr. Vieyra aware who r ecommended outpatient scheduling. Diabetes - A1C 6.0 (07/02) - on insulin sliding scale A. fib w/ history of CVA Discussed with pharmacology the potential interaction between Warfarin and Cipro, but given the interaction is not a true drug-drug interaction and the risk of not properly anticoagulating a patient with a 9.8 % per year risk of stroke was concerning, Warfarin was continued. - home dose: 3 mg Warfarin w/ INR of 1.1 on arrival w/ goal INR 2-3 - INR 9.0 today, administered 5mg PO vitamin K after speaking with pharmacy and held warfarin. -Moving forward will likely step back to 3 mg so we do not overshoot and make patient supertherapeutic - Recheck INR daily Hypothyroid Continue home synthroid 250 mg RLS - continue Pramipexole .5 mg QHS FEN: dialysis diet DVT: Warfarin FULL CODE Dispo: Med-Surg Supervising Physician Co-Signing Physician Notes ATTENDING NOTE I was present with the resident and confirmed niño portions of the history and exam. I agree with the above impression and plan. I also discussed the case with orthopedics. The patient was feeling well this morning; the pain is well controlled unless she bumps or someone palpates the finger. Unfortunately the plan is to take her back to the OR tomorrow for amputation of the fourth digit. Upon examination, it is both ecchymotic and appearing necrotic. To the OR tomorrow for amputation of the fourth digit Discussed with the patient that if further work is needed after tomorrow's surgery - may need referral to a tertiary care center N.p.o. after midnight Subjective 58 yo F found in bed this AM in NAD. No reported overnight events. Notes that R hand pain ongoing, but seems improved today. Gradually getting better. Also notes that if transfer is needed for further surgery, would be ok with [place]. Notes previous sx in [place] with Dr. Darshan Stover. Getting HD today. No other acute concerns or complaints. Review of Systems Review of Systems: All systems reviewed & are unremarkable except as noted in HPI & below Physical Exam Constitutional: WD/WN, vitals as above Eyes: PERRL, conjunctivae normal, anicteric sclerae Neck: trachea midline, no thyromegaly Respiratory: normal respiratory effort, lungs clear to auscultation Cardiovascular: RRR, no murmur, no edema Gastrointestinal (Abdomen): normal bowel sounds, soft, nontender, no hepatosplenomegaly Musculoskeletal: R hand with less erythema. 4th finger purple colored with distal tip zoe. Small dry ulceration on medial side at PIP flex point. Very tender to touch. No purulence, dry. R hand bandaged. Psychiatric: A+Ox3, euthymic affect Results & Data Vital Signs (Past 12 Hours) Vital Signs Temp Pulse Pulse Resp BP BP Pulse Ox 07/08/19 08:00 76 07/08/19 07:32 36.5 C 73 18 95/46 L 94 07/08/19 06:12 78 07/08/19 05:57 97 07/08/19 03:06 36.7 C 82 18 87/44 L 97 Laboratory Results Laboratory Results - last 24 hr 07/07/19 07/07/19 07/08/19 16:44 20:23 07:16 WBC 8.87 RBC 2.98 L Hgb 9.0 L Hct 28.9 L MCV 97.0 MCH 30.2 MCHC 31.1 L RDW Std Deviation 56.0 H RDW Coeff of Tommy 15.8 H Plt Count 272 MPV 10.1 Immature Gran % (Auto) 1.0 Neut % (Auto) 64.6 Lymph % (Auto) 22.8 [place] % (Auto) 9.6 Eos % (Auto) 1.8 Baso % (Auto) 0.2 Immature Gran # (Auto) 0.09 H Neut # (Auto) 5.73 Lymph # (Auto) 2.02 [place]ie # (Auto) 0.85 H Eos # (Auto) 0.16 Baso # (Auto) 0.02 PT INR Sodium Potassium Chloride Carbon Dioxide Anion Gap BUN Creatinine Est Cr Clr Drug Dosing Est GFR ( Amer) Est GFR (Non-Af Amer) BUN/Creatinine Ratio Glucose POC Glucose 146 H 168 H Calcium 07/08/19 07/08/19 07/08/19 07:16 07:16 07:51 WBC RBC Hgb Hct MCV MCH MCHC RDW Std Deviation RDW Coeff of Tommy Plt Count MPV Immature Gran % (Auto) Neut % (Auto) Lymph % (Auto) [place] % (Auto) Eos % (Auto) Baso % (Auto) Immature Gran # (Auto) Neut # (Auto) Lymph # (Auto) [place] # (Auto) Eos # (Auto) Baso # (Auto) PT 78.6 H INR 9.0 H* Sodium 138 Potassium 3.8 Chloride 104 Carbon Dioxide 25 Anion Gap 9.0 BUN 31 H Creatinine 5.68 H* D Est Cr Clr Drug Dosing 12.3 Est GFR ( Amer) 8.7 Est GFR (Non-Af Amer) 7.5 BUN/Creatinine Ratio 5.5 L Glucose 89 POC Glucose 92 Calcium 8.1 L 07/08/19 11:44 WBC RBC Hgb Hct MCV MCH MCHC RDW Std Deviation RDW Coeff of Tommy Plt Count MPV Immature Gran % (Auto) Neut % (Auto) Lymph % (Auto) [place]ie % (Auto) Eos % (Auto) Baso % (Auto) Immature Gran # (Auto) Neut # (Auto) Lymph # (Auto) [place]ie # (Auto) Eos # (Auto) Baso # (Auto) PT INR Sodium Potassium Chloride Carbon Dioxide Anion Gap BUN Creatinine Est Cr Clr Drug Dosing Est GFR ( Amer) Est GFR (Non-Af Amer) BUN/Creatinine Ratio Glucose POC Glucose 142 H Calcium Medications Administered Current Inpatient Medications Acetaminophen (Tylenol) 650 mg PO Q4H PRN PRN Reason: Pain or Fever Stop: 07/31/19 19:57 Last Admin: 07/08/19 02:39 Dose: 650 mg Documented by: Aspirin (Ecotrin Ectab) 81 mg PO DAILY [facility]ANE[facility] Stop: 08/01/19 08:59 Last Admin: 07/08/19 09:03 Dose: 81 mg Documented by: Bisacodyl (Dulcolax) 10 mg CO DAILY PRN PRN Reason: Constipation Stop: 07/31/19 20:13 Bisacodyl (Dulcolax) 5 mg PO DAILY PRN PRN Reason: Constipation Stop: 07/31/19 20:13 Last Admin: 07/08/19 09:14 Dose: 5 mg Documented by: Bumetanide (Bumex) 2 mg PO DAILY DELANEY Stop: 08/01/19 08:59 Last Admin: 07/08/19 09:04 Dose: Not Given Documented by: Dextrose (Dextrose 50%) 25 - 50 ml IV UD PRN; Protocol PRN Reason: Hypoglycemia Protocol Stop: 07/31/19 20:08 Diphenhydramine HCl (Benadryl) 25 mg IV Q4H PRN PRN Reason: Allergic Reaction Stop: 07/31/19 20:37 Last Admin: 07/06/19 01:43 Dose: 25 mg Documented by: Glucose (Dex4 Glucose) 4 - 8 tabs PO UD PRN; Protocol PRN Reason: Hypoglycemia Protocol Stop: 07/31/19 20:08 Glucose (Glucose 40%) 15 - 30 gm PO UD PRN; Protocol PRN Reason: Hypoglycemia Protocol Stop: 07/31/19 20:08 Hydromorphone HCl (Dilaudid) 0.5 mg IV Q2H PRN PRN Reason: Pain Stop: 07/18/19 22:27 Last Admin: 07/07/19 09:20 Dose: 0.5 mg Documented by: Daptomycin 450 mg/ Syringe 9 mls @ 0 mls/min IV Q48H [facility]; Protocol Stop: 07/11/19 20:59 Last Admin: 07/07/19 20:23 Dose: 9 mls/min Documented by: Insulin Aspart (Novolog Flexpen) 0 units SC ACHS [facility]; Protocol Stop: 08/01/19 07:29 Last Admin: 07/08/19 12:09 Dose: 8 units Documented by: Insulin Glargine (Lantus Solostar Pen) 12 units SC QAM [facility]; Protocol Stop: 08/07/19 08:59 Last Admin: 07/08/19 09:08 Dose: 12 units Documented by: Levothyroxine Sodium (Synthroid) 250 mcg PO DAILYBB [facility] Stop: 08/01/19 06:29 Last Admin: 07/08/19 05:59 Dose: 250 mcg Documented by: Lidocaine/Prilocaine (Emla 2.5%) 1 ea EXT DAILY PRN PRN Reason: PRIOR TO DIALYSIS Stop: 07/31/19 20:13 Metoprolol Tartrate (Lopressor) 25 mg PO BID [facility] Stop: 07/31/19 20:59 Last Admin: 07/08/19 09:04 Dose: Not Given Documented by: Miscellaneous (Carbohydrates For Hypoglycemia) 15 - 30 gm PO UD PRN PRN Reason: Hypoglycemia Treatment Stop: 07/31/19 20:08 Miscellaneous Information (Consult Glycemic Management Pharmacy) 1 ea N/A UD PRN; Protocol PRN Reason: Consult Stop: 07/31/19 21:14 Multi-Ingredient Cream (Hydrocerin) 1 appln EXT BID [facility] Stop: 08/01/19 20:59 Last Admin: 07/08/19 09:04 Dose: Not Given Documented by: Polyethylene Glycol (Miralax Powder Packet) 17 gm PO QAM [facility] Stop: 08/01/19 08:59 Last Admin: 07/08/19 09:03 Dose: 17 gm Documented by: Pramipexole Dihydrochloride (Mirapex) 0.25 mg PO HS [facility] Stop: 07/31/19 20:59 Last Admin: 07/07/19 20:22 Dose: 0.25 mg Documented by: Sennosides (Senokot) 8.6 mg PO HS PRN PRN Reason: Constipation Stop: 07/31/19 20:13 Sevelamer HCl (Renagel) 800 mg PO TIDM [facility] Stop: 08/01/19 07:59 Last Admin: 07/08/19 12:07 Dose: 800 mg Documented by: Vitamin B Complex/Folic Acid (Nephrocaps) 1 cap PO QAM [facility] Stop: 08/02/19 10:59 Last Admin: 07/08/19 09:02 Dose: 1 cap Documented by: Vitamin D (Vitamin D3) 2,000 units PO QAM [facility] Stop: 08/01/19 08:59 Last Admin: 07/08/19 09:03 Dose: 2,000 units Documented by: Warfarin Sodium (Coumadin) 3 mg PO DAILY@1600 [facility] Stop: 08/07/19 15:59 PG Care Time/CCT Total # of Minutes Spent Total Time Spent with Patient: Total time spent is greater than 50% in coordination of care (as documented) at patient's floor/unit and/or counseling patient: Resident Activity Tracking Resident Involvement: Resident Care Provided Care Provided: Adult Hospital Medicine
--- NOTE | 2019-07-08 17:18 | Orthopedic Progress Note ---
Date of Service July 08, 2019 Assessment & Plan (1) Ischemic finger: Plan for further I/D of right hand with 4th finger amputation tomorrow. Subjective POD 4 Hand I/D I discussed the case with Dr. Colon. He's available to do further work on the 4th finger tomorrow. Pt currently undergoing dialysis. No new complaints. Continues with pain in the 4th finger and dorsum of hand. No new complaints. Physical Exam Physical Exam: Dialysis currently using right arm fistula. Dressing change not done at this time due to dialysis. However, 4th finger continues to look dry. Small dry ulceration appears to be getting slightly larger. No drainage noted. Finger tip essentially blackened. Painful on light palpation. Unable to move finger at this time except at MCP but is limited. Results & Data Vital Signs (Past 12 Hours) Vital Signs Temp Pulse Pulse Pulse Resp BP BP 07/08/19 17:00 75 127/52 L 07/08/19 16:40 76 132/52 L 07/08/19 16:20 74 122/55 L 07/08/19 16:00 71 125/47 L 07/08/19 15:40 78 130/60 07/08/19 15:20 76 141/58 H 07/08/19 15:00 76 126/50 L 07/08/19 14:40 76 127/59 L 07/08/19 14:20 73 114/54 L 07/08/19 14:14 36.7 C 75 897 H 111/48 L 07/08/19 08:00 76 07/08/19 07:32 36.5 C 73 18 95/46 L 07/08/19 06:12 78 07/08/19 05:57 Pulse Ox 07/08/19 17:00 07/08/19 16:40 07/08/19 16:20 07/08/19 16:00 07/08/19 15:40 07/08/19 15:20 07/08/19 15:00 07/08/19 14:40 07/08/19 14:20 07/08/19 14:14 07/08/19 08:00 07/08/19 07:32 94 07/08/19 06:12 07/08/19 05:57 97
[2019-07-08] MEDS: HYDROmorphone INJ 0.5 MG/0.5 ML SYR IV PRN ×3 (17:32→23:05)
[2019-07-08] MEDS: PRAMIPEXOLE DIHYDROCHLO 0.25 MG TAB PO SCH (20:49)
[2019-07-09] MEDS: HYDROmorphone INJ 0.5 MG/0.5 ML SYR IV PRN ×2 (04:21→18:22)
[2019-07-09] MEDS: LEVOTHYROXINE SODIUM 125 MCG TABLET PO SCH (06:03)
[2019-07-09 06:25] LABS: Basophils # (auto) 0.03 K/uL (0-0.2); Basophils % (auto) 0.3 %; Eosinophils # (auto) 0.13 K/uL (0-0.5); Eosinophils % (auto) 1.3 %; Hematocrit (blood only) 30.2 % (37-47); Hemoglobin 9.5 g/dL (12.0-16.0); Immature Granulocytes # (auto) 0.12 K/uL (0.00-0.02); Immature Granulocytes % (auto) 1.2 %; Lymphocytes # (auto) 2.13 K/uL (1.2-3.4); Lymphocytes % (auto) 21.9 %; Mean Corpuscular Hgb Conc 31.5 g/dL (32-36); Mean Corpuscular Volume 95.9 fL (80-100); Mean Platelet Volume 9.8 fL (7.4-10.4); Monocytes # (auto) 1.29 K/uL (0.11-0.59); Monocytes % (auto) 13.2 %; Neutrophils # (auto) 6.04 K/uL (1.4-6.5); Neutrophils % (auto) 62.1 %; Platelet Count 287 K/uL (130-400); RDW Coefficient of Variation 15.8 % (11.5-14.5); RDW Standard Deviation 55.6 fL (36.4-46.3); Red Blood Count 3.15 M/uL (4.2-5.4); White Blood Count 9.74 K/uL (4.8-10.8)
[2019-07-09] MEDS ORDERED: SODIUM CHLORIDE 0.9% 1000ML 1,000 ML IV SCH (06:30)
[2019-07-09 06:36] LABS: INR 1.7 (0.9-1.1); Prothrombin Time 16.8 Seconds (9.0-12.0)
[2019-07-09 06:59] LABS: BUN Creatinine Ratio 4.2 (10-20); Calcium 8.1 mg/dl (8.5-10.1); Creatinine Clr Calc Pharmacy 20.5 ml/min; Est GFR (African American) 16.2; Potassium 3.5 mmol/L (3.5-5.1)
[2019-07-09] MEDS: INSULIN ASPART 100 UNITS/ML 3 ML PEN SC SCH ×4 (08:40→21:19)
[2019-07-09] MEDS: BUMETANIDE 1 MG TAB PO SCH (08:41)
[2019-07-09] MEDS: SEVELAMER HCL 800 MG TABLET PO SCH ×3 (08:41→18:24)
[2019-07-09] MEDS: METOPROLOL TARTRATE 25 MG TAB PO SCH ×3 (08:41→20:18)
[2019-07-09] MEDS: CHOLECALCIFEROL 1,000 UNITS TAB PO SCH (08:42)
[2019-07-09] MEDS: ASPIRIN 81 MG ECTAB PO SCH (08:42)
[2019-07-09] MEDS: NEPHROCAPS PO SCH (08:42)
[2019-07-09] MEDS: POLYETHYLENE (MIRALAX) 17 GM PACK PO SCH (08:43)
[2019-07-09] MEDS ORDERED: INSULIN GLARGINE SOLOSTAR 100 UNITS/ML 3 ML PEN SC SCH (09:00)
--- NOTE | 2019-07-09 09:54 | Nephrology Progress Note ---
Date of Service July 09, 2019 Assessment & Plan (1) End-stage renal disease on hemodialysis: 58 y o F with ESRD on HD TTS. Admitted with rt hand ischemic ulcer. On IV Daptomycin and Ertapenem. Had debridement on 07/04/2019. Additional surgery planned for today. Metabolic profile is acceptable. Volume status euvolemic. No complications with HD yesterday. AVF functioning well. Plan HD tomorrow per TTS schedule. Medications are appropriately dosed for kidney function. (2) Ischemic ulcer: On IV Daptomycin and Ertapenem (3) Hypertension: Blood pressure is relatively low but asymptomatic. Continue Metoprolol and loop diuretic (4) Atrial fibrillation: On warfarin therapy (5) Diabetes mellitus, type 2: Subjective No acute events overnight. Pain persists. No fevers or chills. Breathing comfortably. Tolerated HD well yesterday. No complications with dialysis. Some anxiety regarding I/D today reported. Review of Systems Review of Systems: All systems reviewed & are unremarkable except as noted in HPI & below Physical Exam Constitutional: well developed and + obese; no acute distress Eyes: no scleral abnormality and no corneal abnormality ENMT: Ears: + hearing impairment Mouth: no oral mucosal abnormality and oral mucous membranes not dry Neck: normal visual inspection; + trachea not midline Respiratory: normal respiratory effort Auscultation: lungs clear to auscultation bilaterally Cardiovascular: Rate/Rhythm: regular rate Heart Sounds: normal S1, normal S2 and + murmur Extremities: + AV fistula Musculoskeletal: Extremities: no cyanosis and no clubbing Skin: normal turgor; no lesions Neurologic: Motor/Sensory: no tremor and no asterixis Psychiatric: Orientation: alert and oriented x 3 Results & Data Vital Signs (Past 12 Hours) Vital Signs Temp Pulse Pulse Resp BP BP Pulse Ox 07/09/19 07:28 84 07/09/19 07:19 36.7 C 77 16 94/55 L 95 07/09/19 04:00 36.9 C 76 20 116/76 137/79 94 07/09/19 02:27 77 07/08/19 23:00 36.8 C 83 18 120/72 95 Laboratory Results Laboratory Results - last 24 hr 07/08/19 07/08/19 07/08/19 11:44 16:56 20:51 WBC RBC Hgb Hct MCV MCH MCHC RDW Std Deviation RDW Coeff of Tommy Plt Count MPV Immature Gran % (Auto) Neut % (Auto) Lymph % (Auto) [place] % (Auto) Eos % (Auto) Baso % (Auto) Immature Gran # (Auto) Neut # (Auto) Lymph # (Auto) [place] # (Auto) Eos # (Auto) Baso # (Auto) PT INR Sodium Potassium Chloride Carbon Dioxide Anion Gap BUN Creatinine Est Cr Clr Drug Dosing Est GFR ( Amer) Est GFR (Non-Af Amer) BUN/Creatinine Ratio Glucose POC Glucose 142 H 89 118 H Calcium 07/09/19 07/09/19 07/09/19 01:32 05:47 05:47 WBC 9.74 RBC 3.15 L Hgb 9.5 L Hct 30.2 L MCV 95.9 MCH 30.2 MCHC 31.5 L RDW Std Deviation 55.6 H RDW Coeff of Tommy 15.8 H Plt Count 287 MPV 9.8 Immature Gran % (Auto) 1.2 Neut % (Auto) 62.1 Lymph % (Auto) 21.9 [place] % (Auto) 13.2 Eos % (Auto) 1.3 Baso % (Auto) 0.3 Immature Gran # (Auto) 0.12 H Neut # (Auto) 6.04 Lymph # (Auto) 2.13 [place] # (Auto) 1.29 H Eos # (Auto) 0.13 Baso # (Auto) 0.03 PT 16.8 H INR 1.7 H Sodium Potassium Chloride Carbon Dioxide Anion Gap BUN Creatinine Est Cr Clr Drug Dosing Est GFR ( Amer) Est GFR (Non-Af Amer) BUN/Creatinine Ratio Glucose POC Glucose 118 H Calcium 07/09/19 07/09/19 05:47 06:19 WBC RBC Hgb Hct MCV MCH MCHC RDW Std Deviation RDW Coeff of Tommy Plt Count MPV Immature Gran % (Auto) Neut % (Auto) Lymph % (Auto) [place] % (Auto) Eos % (Auto) Baso % (Auto) Immature Gran # (Auto) Neut # (Auto) Lymph # (Auto) [place] # (Auto) Eos # (Auto) Baso # (Auto) PT INR Sodium 137 Potassium 3.5 Chloride 101 Carbon Dioxide 27 Anion Gap 9.0 BUN 14 D Creatinine 3.39 H D Est Cr Clr Drug Dosing 20.5 Est GFR ( Amer) 16.2 Est GFR (Non-Af Amer) 14.0 BUN/Creatinine Ratio 4.2 L Glucose 103 H POC Glucose 112 H Calcium 8.1 L PG Care Time/CCT Total # of Minutes Spent Total Time Spent with Patient: Total time spent is greater than 50% in emergency management coordinator rdination of care (as documented) at patient's floor/unit and/or counseling patient:
--- NOTE | 2019-07-09 10:40 | Infectious Disease Progress Nt ---
Date of Service July 09, 2019 Assessment & Plan (1) Osteomyelitis of hand, right, acute: will stop cipro, continue dapto at Q48 hour dosing, will need 6 weeks of IV abx post op, will need weekly cbc, cmp, esr, cpk while on abx. can follow with ID post d/c. discussed with primary. for OR today, await findings. Subjective pt remains on dapto, tolerating well. For OR today, I&D and 4th finger amp. afebrile overnight. blood cultures remain negative. wbc 9.7 Results & Data Vital Signs (Past 12 Hours) Vital Signs Temp Pulse Pulse Resp BP BP Pulse Ox 07/09/19 07:28 84 07/09/19 07:19 36.7 C 77 16 94/55 L 95 07/09/19 04:00 36.9 C 76 20 116/76 137/79 94 07/09/19 02:27 77 07/08/19 23:00 36.8 C 83 18 120/72 95 Laboratory Results Microbiology 07/04/19 12:30 Finger,Right Ring Gram Stain - Final 07/04/19 12:30 Finger,Right Ring Aerobic and Anaerobic Culture - Preliminary Staph aureus MRSA 07/01/19 20:26 Blood Aerobic Blood Culture - Final No growth in Aerobic bottle after 5 days. 07/01/19 20:26 Blood Anaerobic Blood Culture - Final 07/01/19 19:52 Hand,Right Gram Stain - Final 07/01/19 19:52 Hand,Right Wound Culture - Final Staph aureus MRSA PG Care Time/CCT Total # of Minutes Spent Total Time Spent with Patient: Total time spent is greater than 50% in coordination of care (as documented) at patient's floor/unit and/or counseling patient:
[2019-07-09] MEDS: EUCERIN CR 120 GM JAR EXT SCH ×2 (12:59→20:18)
--- NOTE | 2019-07-09 13:57 | Pharmacy Report ---
Glycemic Control Progress Note - Date of Service July 09, 2019 - Scope Glycemic Pharmacist consulted for glycemic control to write orders per [facility] inpatient glycemic control protocol. - Objective Accuchecks BSG(last 24 hours):: 07/08/19 07/08/19 07/09/19 16:56 20:51 01:32 Glucose POC Glucose 89 118 H 118 H 07/09/19 07/09/19 07/09/19 05:47 06:19 11:51 Glucose 103 H POC Glucose 112 H 90 HbA1c:: Hemoglobin A1c 6.0 % (4.5-5.6) H 07/02/19 06:14 - Recent Pertinent Medications The patient is currently receiving: * Basal insulin: Lantus 12 units every 24 hours * Correctional Insulin: Novolog Correction per scale ACHS Goal Range: Low 110 mg/dL - High 140 mg/dL Correction Factor: 25 mg/dL/unit * Prandial insulin: Per carb ratio of 1 unit per 8 grams CHO consumed - Outpatient Anti-Diabetic Meds lantus 20 units BID + Humalog 7-9 units TIDM - Assessment & Plan ASSESSMENT: * See progress note from 07/01/19 for more background info, in short: * Pt receiving SQ basal bolus insulin regimen for hyperglycemia secondary to baseline DM (outpatient regimen on hold),stress/infection (on daptomycin). Currently NPO for surgery. * Patient is currently receiving an average of 26 units of insulin per day * 12 units of basal insulin * 14 units of prandial/correctional insulin * BSGs ranging 89 - 142 mg/dl over the past 24hrs * Changes needed to insulin regimen: * AM Fasting BSG = 112 mg/dl. This is in goal range for patient based on inpatient targets and co-morbidities. Basal insulin can be continued when patient has a diet ordered. Gave 6 units today since NPO for procedure. * Post-prandial BSGs are in range therefore no changes needed to CF/CR. * Total daily dose = ~25 units. PLAN FOR INPATIENT GLYCEMIC CONTROL: * Continuing Lantus 12 units SQ daily (6 units today since NPO) * Continuing correction factor of 25 mg/dl/unit * Continuing carb ratio of 1 unit per 8 grams CHO consumed * Continuing goal range of Low 110 mg/dL - High 140 mg/dL RECOMMENDATIONS FOR DISCHARGE: * Patient is a dialysis patient. HbA1C is not always accurate in these patients. Recommend following blood sugars as an outpatient and adjusting insulin appropriately. * Please note that the plan above was derived based on current level of insulin resistance and hospital stress. These recommendations are appropriate for inpatient admission only. Plan of care upon discharge will need to be reassessed to avoid potential outpatient hypo/hyperglycemia. Thank you.
--- NOTE | 2019-07-09 14:22 | Family Medicine Progress Note ---
Date of Service July 09, 2019 Assessment & Plan (1) Cellulitis of right hand: 58-year-old female with DM, A. fib, hypothyroid, RLS, on dialysis for ESRD transferred to [facility] for right hand infection now on Daptomycin previously on Vancomycin and linezolid OSH and previously failed imipenem cilastin therapy. Orthopaedic surgery performed operative debridement 07/04/2019, 4th finger amputation on 07/09. Acute right hand infection - MRI results highly suspicious for osteomyelitis of the 4th metacarpal base, concern for septic arthritis, concern for infection of the tenosynovitis of the flexor tendon of the 4th digit - wound cultures grew MRSA from 07/01/2019 - no indications for vascular surgical intervention - Daptomycin 450 mg IV Q48h -D/C'd ciprofloxacin per ID; not concerned about pseudomonas . Per ID will need six weeks of IV antibiotics daptomycin moving forward q 48 hour dosing. -Will need weekly cbc, cmp, esr, cpk while on abx -Ortho: plan for further I/D of right hand with 4th finger amputation today ESRD - Access US performed on arrival indicates patent BPG and patent AVF. - HD TTS as scheduled per nephrology Colon Cancer Spoke with son who mentioned that patient has history of colon cancer diagnosed at [facility] in [place] Requested records transferred over Patient requesting follow up with [facility] oncology and made Dr. Vieyra aware who recommended outpatient scheduling. Diabetes - A1C 6.0 (07/02) - on insulin sliding scale. Appreciate glycemic management consult A. fib w/ history of CVA Discussed with pharmacology the potential interaction between Warfarin and Cipro, but given the interaction is not a true drug-drug interaction and the risk of not properly anticoagulating a patient with a 9.8 % per year risk of stroke was concerning, Warfarin was continued. - home dose: 3 mg Warfarin w/ INR of 1.1 on arrival w/ goal INR 2-3 - INR 1.7 today s/p 5mg PO vitamin K yesterday. Question if was lab error of INR 9.0 yesterday -Moving forward will likely step back to 3 mg so we do not overshoot and make patient supertherapeutic - Recheck INR daily Hypothyroid Continue home synthroid 250 mg RLS - continue Pramipexole .5 mg QHS FEN: dialysis diet DVT: Warfarin FULL CODE Dispo: Med-Surg Supervising Physician Co-Signing Physician Notes Patient seen and examined with PGY-1 Dr. Rodriguez. Agree with history, exam findings, assessment and plan of care as documented. In brief, Ms. rAdon is a 58 year old female with history significant for ESRD on HD, prior ischemic ulcers, osteomyelitis, afib, CVA admitted with ischemic finger on the right hand. She continues to have pain in the ischemic finger. It is ischemic and necrotic appearing. She is on dapto q48 hour dosing. Her INR was 9.0 yesterday. She received vitamin K and today her INR is 1.7. She will be having the ischemic digit amputated with Dr. Colon (hand surgery) this afternoon. Will restart anticoagulation with coumadin once ok with surgery. May be difficult to get her therapeutic initially until the vitamin K clears. Dispo: pending surgical intervention and further post-operative care recommendations. Subjective 58 yo F found in bed this AM in NAD. No reported overnight events. Pt notes pain is not terrible, only bad when bumps up against it otherwise tolerable. Pt ok with plan for OR today. No other acute concerns or complaints. Review of Systems Review of Systems: All systems reviewed & are unremarkable except as noted in HPI & below Physical Exam Constitutional: WD/WN, vitals as above Eyes: PERRL, conjunctivae normal, anicteric sclerae Neck: trachea midline, no thyromegaly Respiratory: normal respiratory effort, lungs clear to auscultation Cardiovascular: RRR, no murmur, no edema Gastrointestinal (Abdomen): normal bowel sounds, soft, nontender, no hepatosplenomegaly Musculoskeletal: R hand with less erythema. 4th finger purple colored with distal tip zoe. Small dry ulceration on medial side at PIP flex point. Very tender to touch. No purulence, dry. R hand bandaged. Psychiatric: A+Ox3, euthymic affect Results & Data Vital Signs (Past 12 Hours) Vital Signs Temp Pulse Pulse Resp BP BP Pulse Ox 07/09/19 12:28 36.8 C 84 20 137/77 94 07/09/19 07:28 84 07/09/19 07:19 36.7 C 77 16 94/55 L 95 07/09/19 04:00 36.9 C 76 20 116/76 137/79 94 07/09/19 02:27 77 Laboratory Results Laboratory Results - last 24 hr 07/08/19 07/08/19 07/09/19 16:56 20:51 01:32 WBC RBC Hgb Hct MCV MCH MCHC RDW Std Deviation RDW Coeff of Tommy Plt Count MPV Immature Gran % (Auto) Neut % (Auto) Lymph % (Auto) [place] % (Auto) Eos % (Auto) Baso % (Auto) Immature Gran # (Auto) Neut # (Auto) Lymph # (Auto) [place] # (Auto) Eos # (Auto) Baso # (Auto) PT INR Sodium Potassium Chloride Carbon Dioxide Anion Gap BUN Creatinine Est Cr Clr Drug Dosing Est GFR ( Amer) Est GFR (Non-Af Amer) BUN/Creatinine Ratio Glucose POC Glucose 89 118 H 118 H Calcium 07/09/19 07/09/19 07/09/19 05:47 05:47 05:47 WBC 9.74 RBC 3.15 L Hgb 9.5 L Hct 30.2 L MCV 95.9 MCH 30.2 MCHC 31.5 L RDW Std Deviation 55.6 H RDW Coeff of Tommy 15.8 H Plt Count 287 MPV 9.8 Immature Gran % (Auto) 1.2 Neut % (Auto) 62.1 Lymph % (Auto) 21.9 [place] % (Auto) 13.2 Eos % (Auto) 1.3 Baso % (Auto) 0.3 Immature Gran # (Auto) 0.12 H Neut # (Auto) 6.04 Lymph # (Auto) 2.13 [place] # (Auto) 1.29 H Eos # (Auto) 0.13 Baso # (Auto) 0.03 PT 16.8 H INR 1.7 H Sodium 137 Potassium 3.5 Chloride 101 Carbon Dioxide 27 Anion Gap 9.0 BUN 14 D Creatinine 3.39 H D Est Cr Clr Drug Dosing 20.5 Est GFR ( Amer) 16.2 Est GFR (Non-Af Amer) 14.0 BUN/Creatinine Ratio 4.2 L Glucose 103 H POC Glucose Calcium 8.1 L 07/09/19 07/09/19 06:19 11:51 WBC RBC Hgb Hct MCV MCH MCHC RDW Std Deviation RDW Coeff of Tommy Plt Count MPV Immature Gran % (Auto) Neut % (Auto) Lymph % (Auto) [place] % (Auto) Eos % (Auto) Baso % (Auto) Immature Gran # (Auto) Neut # (Auto) Lymph # (Auto) [place] # (Auto) Eos # (Auto) Baso # (Auto) PT INR Sodium Potassium Chloride Carbon Dioxide Anion Gap BUN Creatinine Est Cr Clr Drug Dosing Est GFR ( Amer) Est GFR (Non-Af Amer) BUN/Creatinine Ratio Glucose POC Glucose 112 H 90 Calcium Medications Administered Current Inpatient Medications Acetaminophen (Tylenol) 650 mg PO Q4H PRN PRN Reason: Pain or Fever Stop: 07/31/19 19:57 Last Admin: 07/08/19 02:39 Dose: 650 mg Documented by: Aspirin (Ecotrin Ectab) 81 mg PO DAILY DELANEY Stop: 08/01/19 08:59 Last Admin: 07/09/19 08:42 Dose: Not Given Documented by: Bisacodyl (Dulcolax) 10 mg ID DAILY PRN PRN Reason: Constipation Stop: 07/31/19 20:13 Bisacodyl (Dulcolax) 5 mg PO DAILY PRN PRN Reason: Constipation Stop: 07/31/19 20:13 Last Admin: 07/08/19 09:14 Dose: 5 mg Documented by: Bumetanide (Bumex) 2 mg PO DAILY DELANEY Stop: 08/01/19 08:59 Last Admin: 07/09/19 08:41 Dose: 2 mg Documented by: Dextrose (Dextrose 50%) 25 - 50 ml IV UD PRN; Protocol PRN Reason: Hypoglycemia Protocol Stop: 07/31/19 20:08 Diphenhydramine HCl (Benadryl) 25 mg IV Q4H PRN PRN Reason: Allergic Reaction Stop: 07/31/19 20:37 Last Admin: 07/06/19 01:43 Dose: 25 mg Documented by: Glucose (Dex4 Glucose) 4 - 8 tabs PO UD PRN; Protocol PRN Reason: Hypoglycemia Protocol Stop: 07/31/19 20:08 Glucose (Glucose 40%) 15 - 30 gm PO UD PRN; Protocol PRN Reason: Hypoglycemia Protocol Stop: 07/31/19 20:08 Hydromorphone HCl (Dilaudid) 0.5 mg IV Q2H PRN PRN Reason: Pain Stop: 07/18/19 22:27 Last Admin: 07/09/19 04:21 Dose: 0.5 mg Documented by: Daptomycin 450 mg/ Syringe 9 mls @ 0 mls/min IV Q48H [facility]; Protocol Stop: 07/11/19 20:59 Last Admin: 07/07/19 20:23 Dose: 9 mls/min Documented by: Sodium Chloride (Nss 1000ml) 1,000 mls @ 15 mls/hr IV .Q24H DELANEY Stop: 08/08/19 06:29 Last Admin: 07/09/19 06:45 Dose: 15 mls/hr Documented by: Insulin Aspart (Novolog Flexpen) 0 units SC ACHS [facility]; Protocol Stop: 08/01/19 07:29 Last Admin: 07/09/19 12:59 Dose: Not Given Documented by: Insulin Glargine (Lantus Solostar Pen) 12 units SC QAM [facility]; Protocol Stop: 08/07/19 08:59 Last Admin: 07/08/19 09:08 Dose: 12 units Documented by: Levothyroxine Sodium (Synthroid) 250 mcg PO DAILYBB [facility] Stop: 08/01/19 06:29 Last Admin: 07/09/19 06:03 Dose: 250 mcg Documented by: Lidocaine/Prilocaine (Emla 2.5%) 1 ea EXT DAILY PRN PRN Reason: PRIOR TO DIALYSIS Stop: 07/31/19 20:13 Metoprolol Tartrate (Lopressor) 25 mg PO BID [facility] Stop: 07/31/19 20:59 Last Admin: 07/09/19 09:17 Dose: Not Given Documented by: Miscellaneous (Carbohydrates For Hypoglycemia) 15 - 30 gm PO UD PRN PRN Reason: Hypoglycemia Treatment Stop: 07/31/19 20:08 Miscellaneous Information (Consult Glycemic Management Pharmacy) 1 ea N/A UD PRN; Protocol PRN Reason: Consult Stop: 07/31/19 21:14 Multi-Ingredient Cream (Hydrocerin) 1 appln EXT BID [facility] Stop: 08/01/19 20:59 Last Admin: 07/09/19 12:59 Dose: Not Given Documented by: Polyethylene Glycol (Miralax Powder Packet) 17 gm PO QAM [facility] Stop: 08/01/19 08:59 Last Admin: 07/09/19 08:43 Dose: 17 gm Documented by: Pramipexole Dihydrochloride (Mirapex) 0.25 mg PO HS [facility] Stop: 07/31/19 20:59 Last Admin: 07/08/19 20:49 Dose: 0.25 mg Documented by: Sennosides (Senokot) 8.6 mg PO HS PRN PRN Reason: Constipation Stop: 07/31/19 20:13 Last Admin: 07/08/19 20:51 Dose: 8.6 mg Documented by: Sevelamer HCl (Renagel) 800 mg PO TIDM [facility] Stop: 08/01/19 07:59 Last Admin: 07/09/19 13:04 Dose: Not Given Documented by: Vitamin B Complex/Folic Acid (Nephrocaps) 1 cap PO QAM [facility] Stop: 08/02/19 10:59 Last Admin: 07/09/19 08:42 Dose: 1 cap Documented by: Vitamin D (Vitamin D3) [facility] [place] Stop: 08/01/19 08:59 Last Admin: 07/09/19 08:42 Dose: 2,000 units Documented by: Warfarin Sodium (Coumadin) 3 mg PO DAILY@1600 [facility] Stop: 08/07/19 15:59 PG Care Time/CCT Total # of Minutes Spent Total Time Spent with Patient: Total time spent is greater than 50% in coordination of care (as documented) at patient's floor/unit and/or counseling patient: Resident Activity Tracking Resident Involvement: Resident Care Provided Care Provided: Adult Hospital Medicine
--- NOTE | 2019-07-09 15:22 | Anesthesiology Consultation ---
Date of Service July 09, 2019 Assessment & Plan Chart Review Chart Review: Acceptable Risk for Surgery Consults Requested none History Surgery Operation Date: 07/03/19 09:35 Proposed Procedures p Right Hand Wound Incision and Drainage - Henrik Izaguirre DO Operation Date: 07/04/19 09:00 Proposed Procedures p Incision and Drainage Extremity - Henrik Izaguirre DO Operation Date: 07/09/19 11:45 Proposed Procedures p Right Hand Incision and Drainage, - Juvencio Colon MD s Right 4th Finger Amputation - Juvencio Colon MD Height/Weight Height: 5 ft 3 in Weight: 105.2 kg Allergies Allergy/AdvReac Type Severity Reaction Status Date / Time oxycodone Allergy Intermediate HIVES,RASH Verified 03/24/19 16:46 Sulfa (Sulfonamide Allergy Intermediate HIVES,RASH Verified 03/24/19 16:46 Antibiotics) cephalexin Allergy Mild HIVES Verified 03/24/19 16:46 Penicillins Allergy Mild RASH Verified 03/24/19 16:46 Dyazide Allergy Unknown UNKNOWN Verified 05/08/18 11:24 hydrochlorothiazide Allergy Unknown UNKNOWN Verified 03/24/19 16:46 Sulfonylureas Allergy Unknown UNKNOWN Verified 03/24/19 16:46 triamterene Allergy Unknown UNKNOWN Verified 03/24/19 16:46 CARBONIC Allergy Unknown UNKNOWN Uncoded 03/24/19 16:46 Medications Home Medications Medication Instructions Recorded Confirmed Last Taken [place] Silver Protectant 1 applic TOPICAL BID 03/24/19 Unknown lidocaine-prilocaine 1 applic TOPICAL DIRECTED PRN 03/24/19 03/24/19 Unknown acetaminophen 500 mg PO Q6 PRN MDD 3000 07/01/19 07/01/19 Unknown aspirin 81 mg PO DAILY 07/01/19 07/01/19 Unknown bisacodyl 5 mg PO 07/01/19 Unknown bisacodyl 10 mg [place] DAILY PRN 07/01/19 07/01/19 Unknown calcium carbonate [Tums] PO HS 07/01/19 Unknown cholecalciferol (vitamin D3) 2,000 unit PO DAILY 07/01/19 07/01/19 Unknown docusate sodium 100 mg PO BID 07/01/19 07/01/19 Unknown insulin glargine 20 unit SUBCUT BID 07/01/19 07/01/19 Unknown insulin lispro 7 - 9 unit SUBCUT BID 07/01/19 07/01/19 Unknown metoprolol tartrate 25 mg PO BID 07/01/19 07/01/19 Unknown polyethylene glycol 3350 17 g PO DAILY 07/01/19 07/01/19 Unknown pramipexole 0.25 mg PO HS 07/01/19 07/01/19 Unknown sertraline 37.5 mg PO DAILY 07/01/19 07/01/19 Unknown sevelamer carbonate 800 mg PO TIDM 07/01/19 07/01/19 Unknown warfarin 3 mg PO DAILY 07/01/19 07/01/19 Unknown Active Medications Generic Name Dose Route Start Last Admin Trade Name Freq PRN Reason Stop Dose Admin Acetaminophen 650 mg 07/01/19 19:58 07/08/19 02:39 Tylenol PO 07/31/19 19:57 650 mg Q4H PRN Administration Pain or Fever Aspirin 81 mg 07/02/19 09:00 07/09/19 08:42 Ecotrin Ectab PO 08/01/19 08:59 Not Given DAILY DELANEY Bisacodyl 5 mg 07/01/19 20:14 07/08/19 09:14 Dulcolax PO 07/31/19 20:13 5 mg DAILY PRN Administration Constipation Bumetanide 2 mg 07/02/19 09:00 07/09/19 08:41 Bumex PO 08/01/19 08:59 2 mg DAILY DELANEY Administration Diphenhydramine HCl 25 mg 07/01/19 20:38 07/06/19 01:43 Benadryl IV 07/31/19 20:37 25 mg Q4H PRN Administration Allergic Reaction Hydromorphone HCl 0.5 mg 07/04/19 22:28 07/09/19 04:21 Dilaudid IV 07/18/19 22:27 0.5 mg Q2H PRN Administration Pain Daptomycin 450 mg/ Syringe 9 mls @ 0 mls/min 07/03/19 21:00 07/07/19 20:23 IV 07/11/19 20:59 9 mls/min Q48H DELANEY Administration Protocol Sodium Chloride 1,000 mls @ 15 mls/hr 07/09/19 06:30 07/09/19 06:45 Nss 1000ml IV 08/08/19 06:29 15 mls/hr .Q24H DELANEY Administration Insulin Aspart 0 units 07/02/19 07:30 07/09/19 12:59 Novolog Flexpen SC 08/01/19 07:29 Not Given ACHS [facility] Protocol Insulin Glargine 12 units 07/08/19 09:00 07/08/19 09:08 Lantus Solostar Pen SC 08/07/19 08:59 12 units QAM [facility] Administration Protocol Levothyroxine Sodium 250 mcg 07/02/19 06:30 07/09/19 06:03 Synthroid PO 08/01/19 06:29 250 mcg DAILYBB DELANEY Administration Metoprolol Tartrate 25 mg 07/01/19 21:00 07/09/19 09:17 Lopressor PO 07/31/19 20:59 Not Given BID [facility] Multi-Ingredient Cream 1 appln 07/02/19 21:00 07/09/19 12:59 Hydrocerin EXT 08/01/19 20:59 Not Given BID [facility] Polyethylene Glycol 17 gm 07/02/19 09:00 07/09/19 08:43 Miralax Powder Packet PO 08/01/19 08:59 17 gm QAM [facility] Administration Pramipexole Dihydrochloride 0.25 mg 07/01/19 21:00 07/08/19 20:49 Mirapex PO 07/31/19 20:59 0.25 mg HS DELANEY Administration Sennosides 8.6 mg 07/01/19 20:14 07/08/19 20:51 Senokot PO 07/31/19 20:13 8.6 mg HS PRN Administration Constipation Sevelamer HCl 800 mg 07/02/19 08:00 07/09/19 13:04 Renagel PO 08/01/19 07:59 Not Given TIDM [facility] Vitamin B Complex/Folic Acid 1 cap 07/03/19 11:00 07/09/19 08:42 Nephrocaps PO 08/02/19 10:59 [facility] [place] Administration Vitamin D 2,000 units 07/02/19 09:00 07/09/19 08:42 Vitamin D3 PO 08/01/19 08:59 2,000 units QAM DELANEY Administration NPO Date Last Intake of Fluids: 07/08/19 Time Last Intake of Fluids: 09:00 Last Intake of Fluids Comment: sips with meds Date Last Intake of Solids: 07/09/19 Time Last Intake of Solids: 23:59 Past Medical History Medical History Ischemic ulcer Restless leg syndrome Hypothyroidism Cellulitis of right hand Diabetes Atrial fibrillation Azotemia End-stage renal disease on hemodialysis (Chronic) Hypertension (Chronic) AV fistula Anemia Diabetes mellitus, type 2 Hemodialysis patient Hyperlipidemia Hypothyroidism Ischemic ulcer MRSA (methicillin resistant Staphylococcus aureus) Shingles Stroke Past Family History Family History Unknown Diabetes Past Surgical History Surgical History AV fistula H/O section History of cholecystectomy History of hand surgery Social History Smoking Status: Former smoker Smoking End Date: 2008 Hx Alcohol Use: Yes alcohol intake frequency: holidays/special occasions only Alcohol Intake Frequency Comment: rare occassion Hx Substance Use: No substance use type: does not use Physical Exam Vital Signs Last Vital Signs Temp 37 C 07/09/19 15:13 Pulse 101 H 07/09/19 15:13 Resp 16 07/09/19 15:13 BP 125/90 07/09/19 15:13 Pulse Ox 96 07/09/19 15:13 Testing Laboratory Results 07/09/19 05:47 07/09/19 05:47 PT 16.8 Seconds (9.0-12.0) H 07/09/19 05:47 INR 1.7 (0.9-1.1) H 07/09/19 05:47 APTT 25.7 Seconds (21.0-31.0) 07/01/19 20:26 Hemoglobin A1c 6.0 % (4.5-5.6) H 07/02/19 06:14 Blood Type O Negative 07/01/19 20:26 Antibody Screen NEGATIVE 07/01/19 20:26 07/04/19 12:30 Gram Stain - Final Finger,Right Ring Aerobic and Anaerobic Culture - Preliminary Staph aureus MRSA 07/01/19 20:26 Aerobic Blood Culture - Final Blood No growth in Aerobic bottle after 5 days. Anaerobic Blood Culture - Final 07/01/19 19:52 Gram Stain - Final Hand,Right Wound Culture - Final Staph aureus MRSA 07/09/19 07/09/19 07/09/19 15:15 11:51 06:19 POC Glucose 86 90 112 H
[2019-07-09] MEDS ORDERED: ATROPINE SULFATE 0.1 MG/ML 10ML SYR IV PRN (15:29)
[2019-07-09] MEDS ORDERED: MoRPHine SULFATE 10 MG/ML CARP/VIAL IV PRN (15:29)
[2019-07-09] MEDS ORDERED: MEPERIDINE HCL 25 MG/ML CARP IV PRN (15:29)
[2019-07-09] MEDS ORDERED: fentaNYL citrate 100 MCG/2 ML VIAL IV PRN (15:29)
[2019-07-09] MEDS ORDERED: ePHEDrine sulfate 50 MG/ML AMP IV PRN (15:29)
[2019-07-09] MEDS ORDERED: PROPOFOL IV EMULSION 10 MG/ML 20 ML VIAL IV ONE (15:31)
[2019-07-09] MEDS ORDERED: LIDOCAINE HCL 2% 2 ML VIAL/AMP(20MG/ML) INFIL ONE (15:31)
--- NOTE | 2019-07-09 15:31 | History & Physical Bridge Note ---
Date of Service July 09, 2019 History & Physical Bridge Note I have examined the patient, reviewed the History & Physical and in the interval since the performance of the History & Physical I have noted the following changes of clinical significance: no changes noted I saw the patient the preoperative holding area we discussed risk benefits reasonable outcomes and expectations. We will plan for 1. Right ring finger amputation 2. right hand irrigation and debridement
[2019-07-09] MEDS ORDERED: fentaNYL citrate 100 MCG/2 ML VIAL ONE (15:36)
[2019-07-09] MEDS ORDERED: BUPIVACAINE/EPINEPHRINE 0.5% MPF 1:200,000 30 ML VIAL ONE (15:36)
[2019-07-09] MEDS ORDERED: BUPIVACAINE 0.5 % 5 MG/1 ML MPF 30ML VIAL ONE (15:36)
[2019-07-09] MEDS ORDERED: BACITRACIN INJ 50,000 UNIT VIAL ONE (15:37)
[2019-07-09] MEDS ORDERED: MIDAZOLAM HCL 1 MG/ML 2ML VIAL ONE (15:50)
[2019-07-09] MEDS: DAPTOmycin 450 MG in SYRINGE 0 ML IV SCH (16:03)
[2019-07-09] MEDS ORDERED: HYDROmorphone INJ 2 MG/ML SYR/VIAL ONE (16:25)
--- NOTE | 2019-07-09 16:52 | Post Operative Brief Note ---
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 Operation Date: 07/09/19 11:45 Pre-Op Diagnosis: RIGHT HAND CELLULITIS Post-Op Diagnosis: RIGHT HAND CELLULITIS Procedure Operation Date: 07/03/19 09:35 <No data on this case meets the specified criteria> Operation Date: 07/04/19 09:00 Actual Procedures p Irrigation and Debridement right hand ulcer; Resection of Extensor 4th digit; irrigation and debridement 4th metacarpal phalangeal joint; Resection 4th matcarpal head & proximal phalanyx; Tenosynovectomy of 4th flexor(Right) - Henrik Izaguirre DO Operation Date: 07/09/19 11:45 Actual Procedures p Right Hand Incision and Drainage(Right) - Juvencio Colon MD s Right 4th Finger Amputation(Right) - Juvencio Colon MD Surgeon Juvencio Colon MD Clinical Documentation Consultant Greg Alva PA-C Estimated Blood Loss 10 Findings Consistent with Post-Op Diagnosis Specimens Aerobic anaerobic Gram stain fourth metacarpal phalangeal joint Fourth metacarpal head and fourth proximal phalanx Drains Other (1/2 inch iodoform gauze x8 inches) Anesthesia Type General Regional
[2019-07-09] MEDS: HYDROmorphone INJ 1 MG/ML SYRINGE IV PRN ×6 (17:11→17:36)
[2019-07-09] MEDS ORDERED: ROCURONIUM BROMIDE 10 MG/ML 5 ML VIAL ONE (17:18)
[2019-07-09] MEDS ORDERED: ONDANSETRON INJ 2 MG/ML 2 ML VIAL ONE (17:18)
--- NOTE | 2019-07-09 18:00 | Anesthesiology Progress Note ---
Date of Service July 09, 2019 Anesthesia Post Procedure Vital Signs Vital Signs: Temp Pulse Pulse Pulse Pulse Resp BP 07/09/19 17:55 92 H 17 07/09/19 17:45 37.2 C 97 H 14 07/09/19 17:35 103 H 12 07/09/19 17:25 102 H 18 07/09/19 17:15 102 H 18 07/09/19 17:09 36.3 C L 107 H 11 L 07/09/19 15:13 37 C 101 H 16 07/09/19 12:28 36.8 C 84 20 07/09/19 07:28 84 07/09/19 07:19 36.7 C 77 16 07/09/19 04:00 36.9 C 76 20 07/09/19 02:27 77 07/08/19 23:00 36.8 C 83 18 07/08/19 20:15 90 07/08/19 19:27 36.8 C 85 20 07/08/19 19:25 85 07/08/19 18:16 36.8 C 78 78 139/54 L BP BP BP Pulse Ox 07/09/19 17:55 101/55 L 95 07/09/19 17:45 113/60 96 07/09/19 17:35 112/65 96 07/09/19 17:25 129/67 98 07/09/19 17:15 133/72 99 07/09/19 17:09 142/80 H 99 07/09/19 15:13 125/90 96 07/09/19 12:28 137/77 94 07/09/19 07:28 07/09/19 07:19 94/55 L 95 07/09/19 04:00 116/76 137/79 94 07/09/19 02:27 07/08/19 23:00 120/72 95 07/08/19 20:15 116/67 07/08/19 19:27 131/66 96 07/08/19 19:25 07/08/19 18:16 139/54 L Pain Intensity Right Hand: Pain Intensity: 3 Transfer of Care Handoff Completed per policy Notes Mental Status: alert / awake / arousable and participated in evaluation Patient Amnestic to Procedure: Yes Nausea / Vomiting: adequately controlled Pain: adequately controlled Airway Patency, RR, SpO2: stable & adequate BP & HR: stable & adequate Hydration State: stable & adequate Anesthetic Complications: no major complications apparent
[2019-07-09] MEDS: WARFARIN SOD 3 MG TAB PO SCH (18:23)
[2019-07-09] MEDS: PRAMIPEXOLE DIHYDROCHLO 0.25 MG TAB PO SCH (20:18)
[2019-07-09] MEDS ORDERED: INSULIN GLARGINE SOLOSTAR 100 UNITS/ML 3 ML PEN SQ SCH (21:00)
[2019-07-09] MEDS ORDERED: INSULIN LISPRO SQ SCH (21:00)
[2019-07-09] MEDS: DOCUSATE SODIUM 100 MG CAP PO SCH (21:05)
[2019-07-10] MEDS: HYDROmorphone INJ 0.5 MG/0.5 ML SYR IV PRN ×6 (00:17→18:35)
[2019-07-10] MEDS: ACETAMINOPHEN 325 MG TAB PO PRN (04:31)
[2019-07-10] MEDS: LEVOTHYROXINE SODIUM 125 MCG TABLET PO SCH (06:25)
[2019-07-10 06:46] LABS: Basophils # (auto) 0.03 K/uL (0-0.2); Basophils % (auto) 0.4 %; Eosinophils # (auto) 0.08 K/uL (0-0.5); Eosinophils % (auto) 0.9 %; Hematocrit (blood only) 29.1 % (37-47); Hemoglobin 9.1 g/dL (12.0-16.0); Immature Granulocytes # (auto) 0.08 K/uL (0.00-0.02); Immature Granulocytes % (auto) 0.9 %; Lymphocytes # (auto) 2.18 K/uL (1.2-3.4); Lymphocytes % (auto) 25.5 %; Mean Corpuscular Hgb Conc 31.3 g/dL (32-36); Mean Corpuscular Volume 97.3 fL (80-100); Mean Platelet Volume 9.8 fL (7.4-10.4); Monocytes # (auto) 1.15 K/uL (0.11-0.59); Monocytes % (auto) 13.4 %; Neutrophils # (auto) 5.04 K/uL (1.4-6.5); Neutrophils % (auto) 58.9 %; Platelet Count 268 K/uL (130-400); RDW Standard Deviation 56.5 fL (36.4-46.3); Red Blood Count 2.99 M/uL (4.2-5.4); White Blood Count 8.56 K/uL (4.8-10.8)
[2019-07-10 06:53] LABS: INR 1.5 (0.9-1.1); Prothrombin Time 15.1 Seconds (9.0-12.0)
[2019-07-10 07:29] LABS: BUN Creatinine Ratio 4.5 (10-20); Creatinine Clr Calc Pharmacy 14.6 ml/min; Est GFR (African American) 10.8; Est GFR (Non-African American) 9.3; Potassium 4.1 mmol/L (3.5-5.1)
[2019-07-10] MEDS: INSULIN ASPART 100 UNITS/ML 3 ML PEN SC SCH ×4 (08:57→21:00)
[2019-07-10] MEDS: INSULIN GLARGINE SOLOSTAR 100 UNITS/ML 3 ML PEN SC SCH (08:59)
[2019-07-10] MEDS: EUCERIN CR 120 GM JAR EXT SCH ×2 (08:59→20:08)
[2019-07-10] MEDS: SEVELAMER HCL 800 MG TABLET PO SCH ×3 (09:00→17:54)
[2019-07-10] MEDS: POLYETHYLENE (MIRALAX) 17 GM PACK PO SCH ×2 (09:01→09:08)
[2019-07-10] MEDS: NEPHROCAPS PO SCH (09:01)
[2019-07-10] MEDS: DOCUSATE SODIUM 100 MG CAP PO SCH ×2 (09:01→20:08)
[2019-07-10] MEDS: CHOLECALCIFEROL 1,000 UNITS TAB PO SCH ×2 (09:01→09:08)
[2019-07-10] MEDS: ASPIRIN 81 MG ECTAB PO SCH (09:02)
[2019-07-10] MEDS ORDERED: EPOETIN ALFA 10,000 UNITS/ML VIAL IV ONE (10:00)
[2019-07-10] MEDS ORDERED: IRON SUCROSE 100 MG in SYRINGE 0 ML IV ONE (10:00)
--- NOTE | 2019-07-10 10:18 | Pharmacy Report ---
PHA: Glycemic Control AP - Date of Service July 10, 2019 - Assessment & Plan The patient is currently receiving ~25 units of insulin per day. BSGs ranging 83 - 168 mg/dl over the past 24hrs. * Basal insulin: Lantus 12 units every 24 hours given in the morning. Half dose of 6 units given when patient NPO * Correctional Insulin: Novolog Correction per scale ACHS Goal Range: Low 110 mg/dL - High 140 mg/dL Correction Factor: 25 mg/dL/unit * Prandial insulin: Per carb ratio of 1 unit per 8 grams CHO consumed BSGs continue to improve, no changes needed to inpatient regimen at this time. Pharmacy will continue to monitor patient daily and write orders per [facility] inpatient glycemic control protocol. Thanks. * Please note that the plan above was derived based on current level of insulin resistance and hospital stress. These recommendations are appropriate for inpatient admission only. Plan of care upon discharge will need to be reassessed to avoid potential outpatient hypo/hyperglycemia.
--- NOTE | 2019-07-10 10:19 | Nephrology Progress Note ---
Date of Service July 10, 2019 Assessment & Plan (1) End-stage renal disease on hemodialysis: 58 y o F with ESRD on HD TTS. Admitted with rt hand ischemic ulcer. On IV Daptomycin and Ertapenem. Had debridement on 07/04/2019. I&D 07/09/19. Orders for HD were entered into the EMR today and discussed with the HD nurse concert promoter. Kortney was seen and evaluated during HD. UF goal 2.5L. Qb adequate. BP appropriate. 3 K bath. Medications are appropriately dosed for kidney function. (2) Ischemic ulcer: On IV Daptomycin and Ertapenem (3) Hypertension: BP improved (4) Atrial fibrillation: On warfarin therapy (5) Diabetes mellitus, type 2: Subjective No acute events overnight. Denies fevers or chills. Continue to struggle with pain. No post operative complications. Kortney was seen and evaluated during hemodialysis this morning. She was tolerating treatment well. Review of Systems Review of Systems: All systems reviewed & are unremarkable except as noted in HPI & below Physical Exam Constitutional: well developed and + obese; no acute distress Eyes: no scleral abnormality and no corneal abnormality ENMT: Ears: + hearing impairment Mouth: no oral mucosal abnormality and oral mucous membranes not dry Neck: normal visual inspection; + trachea not midline Respiratory: normal respiratory effort Auscultation: lungs clear to auscultation bilaterally Cardiovascular: Rate/Rhythm: regular rate Heart Sounds: normal S1, normal S2 and + murmur Extremities: + AV fistula Musculoskeletal: Extremities: no cyanosis and no clubbing Skin: normal turgor; no lesions Neurologic: Motor/Sensory: no tremor and no asterixis Psychiatric: Orientation: alert and oriented x 3 Results & Data Vital Signs (Past 12 Hours) Vital Signs Temp Pulse Pulse Resp BP BP Pulse Ox 07/10/19 07:33 36.7 C 88 20 130/72 97 07/10/19 07:22 84 07/10/19 04:05 36.9 C 90 18 106/70 97 07/10/19 01:15 81 07/09/19 23:00 36.8 C 86 20 123/61 96 Laboratory Results Laboratory Results - last 24 hr 07/09/19 07/09/19 07/09/19 11:51 15:15 17:18 WBC RBC Hgb Hct MCV MCH MCHC RDW Std Deviation RDW Coeff of Tommy Plt Count MPV Immature Gran % (Auto) Neut % (Auto) Lymph % (Auto) [place] % (Auto) Eos % (Auto) Baso % (Auto) Immature Gran # (Auto) Neut # (Auto) Lymph # (Auto) [place] # (Auto) Eos # (Auto) Baso # (Auto) PT INR Sodium Potassium Chloride Carbon Dioxide Anion Gap BUN Creatinine Est Cr Clr Drug Dosing Est GFR ( Amer) Est GFR (Non-Af Amer) BUN/Creatinine Ratio Glucose POC Glucose 90 86 98 Calcium 07/09/19 07/09/19 07/10/19 18:17 20:11 06:14 WBC RBC Hgb Hct MCV MCH MCHC RDW Std Deviation RDW Coeff of Tommy Plt Count MPV Immature Gran % (Auto) Neut % (Auto) Lymph % (Auto) [place] % (Auto) Eos % (Auto) Baso % (Auto) Immature Gran # (Auto) Neut # (Auto) Lymph # (Auto) [place] # (Auto) Eos # (Auto) Baso # (Auto) PT 15.1 H INR 1.5 H Sodium Potassium Chloride Carbon Dioxide Anion Gap BUN Creatinine Est Cr Clr Drug Dosing Est GFR ( Amer) Est GFR (Non-Af Amer) BUN/Creatinine Ratio Glucose POC Glucose 106 H 83 Calcium 07/10/19 07/10/19 07/10/19 06:14 06:14 07:43 WBC 8.56 RBC 2.99 L Hgb 9.1 L Hct 29.1 L MCV 97.3 MCH 30.4 MCHC 31.3 L RDW Std Deviation 56.5 H RDW Coeff of Tommy 16.0 H Plt Count 268 MPV 9.8 Immature Gran % (Auto) 0.9 Neut % (Auto) 58.9 Lymph % (Auto) 25.5 [place] % (Auto) 13.4 Eos % (Auto) 0.9 Baso % (Auto) 0.4 Immature Gran # (Auto) 0.08 H Neut # (Auto) 5.04 Lymph # (Auto) 2.18 [place] # (Auto) 1.15 H Eos # (Auto) 0.08 Baso # (Auto) 0.03 PT INR Sodium 139 Potassium 4.1 D Chloride 104 Carbon Dioxide 29 Anion Gap 7.0 BUN 21 H Creatinine 4.73 H* D Est Cr Clr Drug Dosing 14.6 Est GFR ( Amer) 10.8 Est GFR (Non-Af Amer) 9.3 BUN/Creatinine Ratio 4.5 L Glucose 101 H POC Glucose 102 H Calcium 8.0 L PG Care Time/CCT Total # of Minutes Spent Total Time Spent with Patient: Total time spent is greater than 50% in coordin ation of care (as documented) at patient's floor/unit and/or counseling patient:
[2019-07-10] MEDS: METOPROLOL TARTRATE 25 MG TAB PO SCH ×2 (11:18→20:08)
[2019-07-10] MEDS: BUMETANIDE 1 MG TAB PO SCH (11:18)
--- NOTE | 2019-07-10 12:33 | Orthopedic Progress Note ---
Date of Service July 10, 2019 Assessment & Plan (1) Cellulitis of right hand: S/P right hand I & D and amputation 4th finger Ortho will sign off for now. Please notify if needed. May change dressing prior to DC and F/U at [facility] with Dr. Colon in 10-14 days. Continue care and DC planning per medicine. Subjective POD #1 Right hand I & D and amputation 4th finger she notes pain today. just given Dilaudid and sleepy now. No other complaints Physical Exam Physical Exam: right hand dressing in place. finger mobile. NVI Results & Data Vital Signs (Past 12 Hours) Vital Signs Temp Pulse Pulse Pulse Resp BP BP 07/10/19 12:20 84 87/40 L 07/10/19 12:00 93 H 142/59 H 07/10/19 11:40 82 112/46 L 07/10/19 11:20 80 111/49 L 07/10/19 11:00 87 129/54 L 07/10/19 10:40 82 108/46 L 07/10/19 10:20 83 99/45 L 07/10/19 10:00 79 103/44 L 07/10/19 09:34 36.4 C L 81 07/10/19 07:33 36.7 C 88 20 07/10/19 07:22 84 07/10/19 04:05 36.9 C 90 18 106/70 07/10/19 01:15 81 BP Pulse Ox 07/10/19 12:20 07/10/19 12:00 07/10/19 11:40 07/10/19 11:20 07/10/19 11:00 07/10/19 10:40 07/10/19 10:20 07/10/19 10:00 07/10/19 09:34 07/10/19 07:33 130/72 97 07/10/19 07:22 07/10/19 04:05 97 07/10/19 01:15
[2019-07-10] MEDS: WARFARIN SOD 3 MG TAB PO SCH (15:55)
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
[2019-07-10] MEDS: PRAMIPEXOLE DIHYDROCHLO 0.25 MG TAB PO SCH (20:09)
[2019-07-11] MEDS: HYDROmorphone INJ 0.5 MG/0.5 ML SYR IV PRN ×2 (03:11→07:57)
[2019-07-11] MEDS: LEVOTHYROXINE SODIUM 125 MCG TABLET PO SCH (05:32)
[2019-07-11 06:02] LABS: Basophils # (auto) 0.04 K/uL (0-0.2); Basophils % (auto) 0.5 %; Eosinophils # (auto) 0.11 K/uL (0-0.5); Eosinophils % (auto) 1.3 %; Hematocrit (blood only) 30.2 % (37-47); Hemoglobin 9.3 g/dL (12.0-16.0); Immature Granulocytes % (auto) 1.2 %; Lymphocytes # (auto) 2.52 K/uL (1.2-3.4); Lymphocytes % (auto) 29.4 %; Mean Corpuscular Hgb Conc 30.8 g/dL (32-36); Mean Corpuscular Volume 98.1 fL (80-100); Mean Platelet Volume 9.7 fL (7.4-10.4); Monocytes # (auto) 1.12 K/uL (0.11-0.59); Monocytes % (auto) 13.1 %; Neutrophils # (auto) 4.67 K/uL (1.4-6.5); Neutrophils % (auto) 54.5 %; Platelet Count 252 K/uL (130-400); RDW Coefficient of Variation 15.8 % (11.5-14.5); RDW Standard Deviation 56.2 fL (36.4-46.3); Red Blood Count 3.08 M/uL (4.2-5.4); White Blood Count 8.56 K/uL (4.8-10.8)
[2019-07-11 06:12] LABS: INR 1.6 (0.9-1.1); Prothrombin Time 16.3 Seconds (9.0-12.0)
[2019-07-11 06:37] LABS: BUN Creatinine Ratio 3.6 (10-20); Calcium 8.5 mg/dl (8.5-10.1); Creatinine Clr Calc Pharmacy 21.6 ml/min; Est GFR (African American) 17.2; Est GFR (Non-African American) 14.9; Potassium 4.1 mmol/L (3.5-5.1)
[2019-07-11] MEDS ORDERED: SODIUM CHLORIDE 0.9% 1000ML 1,000 ML IV PRN (07:00)
[2019-07-11] MEDS: METOPROLOL TARTRATE 25 MG TAB PO SCH ×2 (07:47→19:55)
[2019-07-11] MEDS: SEVELAMER HCL 800 MG TABLET PO SCH ×3 (07:57→16:21)
[2019-07-11] MEDS: INSULIN GLARGINE SOLOSTAR 100 UNITS/ML 3 ML PEN SC SCH ×2 (07:57→08:33)
[2019-07-11] MEDS: DOCUSATE SODIUM 100 MG CAP PO SCH ×2 (07:58→19:57)
[2019-07-11] MEDS: CHOLECALCIFEROL 1,000 UNITS TAB PO SCH ×2 (07:58→08:02)
[2019-07-11] MEDS: BUMETANIDE 1 MG TAB PO SCH (07:58)
[2019-07-11] MEDS: NEPHROCAPS PO SCH (07:58)
[2019-07-11] MEDS: POLYETHYLENE (MIRALAX) 17 GM PACK PO SCH ×2 (08:00→08:02)
[2019-07-11] MEDS: ASPIRIN 81 MG ECTAB PO SCH (08:01)
[2019-07-11] MEDS: EUCERIN CR 120 GM JAR EXT SCH ×2 (08:01→19:56)
[2019-07-11] MEDS: INSULIN ASPART 100 UNITS/ML 3 ML PEN SC SCH ×4 (08:09→21:45)
--- NOTE | 2019-07-11 10:29 | Nephrology Progress Note ---
Date of Service July 11, 2019 Assessment & Plan (1) End-stage renal disease on hemodialysis: 58 y o F with ESRD on HD TTS. Admitted with rt hand ischemic ulcer. On IV Daptomycin and Ertapenem. Had debridement on 07/04/2019. I&D 07/09/19. Continue HD per TTS schedule. BP and volume status are currently appropriate. Patient is on a renal diet. Medications are appropriately dosed for kidney function. Electrolytes are within normal limits. AVF has been functioning well. Epogen and venofer provided with dialysis yesterday for anemia. (2) Ischemic ulcer: (3) Hypertension: (4) Atrial fibrillation: On warfarin therapy (5) Diabetes mellitus, type 2: Subjective No acute events overnight. No fevers or chills. Pain control improved. Feeling ready to go home. Completed HD yesterday, net UF 2.3 L. Tolerated dialysis well. Review of Systems Review of Systems: All systems reviewed & are unremarkable except as noted in HPI & below Physical Exam Constitutional: well developed and + obese; no acute distress Eyes: no scleral abnormality and no corneal abnormality ENMT: Ears: + hearing impairment Mouth: no oral mucosal abnormality and oral mucous membranes not dry Neck: normal visual inspection; + trachea not midline Respiratory: normal respiratory effort Auscultation: lungs clear to auscultation bilaterally Cardiovascular: Rate/Rhythm: regular rate Heart Sounds: normal S1, normal S2 and + murmur Extremities: + AV fistula Musculoskeletal: Extremities: no cyanosis and no clubbing Skin: normal turgor; no lesions Neurologic: Motor/Sensory: no tremor and no asterixis Psychiatric: Orientation: alert and oriented x 3 Results & Data Vital Signs (Past 12 Hours) Vital Signs Temp Pulse Pulse Resp BP Pulse Ox 07/11/19 10:01 89 07/11/19 06:57 36.8 C 95 H 20 122/80 97 07/11/19 03:56 36.9 C 95 H 20 106/69 95 07/10/19 23:35 36.8 C 91 H 20 118/71 93 07/10/19 23:32 92 H Laboratory Results Laboratory Results - last 24 hr 07/10/19 07/10/19 07/10/19 11:49 16:41 20:00 WBC RBC Hgb Hct MCV MCH MCHC RDW Std Deviation RDW Coeff of Tommy Plt Count MPV Immature Gran % (Auto) Neut % (Auto) Lymph % (Auto) [place] % (Auto) Eos % (Auto) Baso % (Auto) Immature Gran # (Auto) Neut # (Auto) Lymph # (Auto) [place] # (Auto) Eos # (Auto) Baso # (Auto) PT INR Sodium Potassium Chloride Carbon Dioxide Anion Gap BUN Creatinine Est Cr Clr Drug Dosing Est GFR ( Amer) Est GFR (Non-Af Amer) BUN/Creatinine Ratio Glucose POC Glucose 109 H 85 119 H Calcium 07/11/19 07/11/19 07/11/19 05:26 05:26 05:26 WBC 8.56 RBC 3.08 L Hgb 9.3 L Hct 30.2 L MCV 98.1 MCH 30.2 MCHC 30.8 L RDW Std Deviation 56.2 H RDW Coeff of Tommy 15.8 H Plt Count 252 MPV 9.7 Immature Gran % (Auto) 1.2 Neut % (Auto) 54.5 Lymph % (Auto) 29.4 [place] % (Auto) 13.1 Eos % (Auto) 1.3 Baso % (Auto) 0.5 Immature Gran # (Auto) 0.10 H Neut # (Auto) 4.67 Lymph # (Auto) 2.52 [place] # (Auto) 1.12 H Eos # (Auto) 0.11 Baso # (Auto) 0.04 PT 16.3 H INR 1.6 H Sodium 136 Potassium 4.1 Chloride 103 Carbon Dioxide 28 Anion Gap 5.0 BUN 12 Creatinine 3.22 H D Est Cr Clr Drug Dosing 21.6 Est GFR ( Amer) 17.2 Est GFR (Non-Af Amer) 14.9 BUN/Creatinine Ratio 3.6 L Glucose 98 POC Glucose Calcium 8.5 07/11/19 07:44 WBC RBC Hgb Hct MCV MCH MCHC RDW Std Deviation RDW Coeff of Tommy Plt Count MPV Immature Gran % (Auto) Neut % (Auto) Lymph % (Auto) [place] % (Auto) Eos % (Auto) Baso % (Auto) Immature Gran # (Auto) Neut # (Auto) Lymph # (Auto) [place] # (Auto) Eos # (Auto) Baso # (Auto) PT INR Sodium Potassium Chloride Carbon Dioxide Anion Gap BUN Creatinine Est Cr Clr Drug Dosing Est GFR ( Amer) Est GFR (Non-Af Amer) BUN/Creatinine Ratio Glucose POC Glucose 97 Calcium PG Care Time/CCT Total # of Minutes Spent Total Time Spent with Patient: Total time spent is greater than 50% in coordination of care (as documented) at patient's floor/unit and/or counseling patient:
--- NOTE | 2019-07-11 13:57 | Family Medicine Progress Note ---
Date of Service July 11, 2019 Assessment & Plan (1) Cellulitis of right hand: 58-year-old female with DM, A. fib, hypothyroid, RLS, on dialysis for ESRD transferred to [facility] for right hand infection now on Daptomycin previously on Vancomycin and linezolid OSH and previously failed imipenem cilastin therapy. Orthopaedic surgery performed operative debridement 07/04/2019, 4th finger amputation on 07/09. Acute right hand infection - MRI results highly suspicious for osteomyelitis of the 4th metacarpal base, concern for septic arthritis, concern for infection of the tenosynovitis of the flexor tendon of the 4th digit - wound cultures grew MRSA from 07/01/2019 - Daptomycin 450 mg IV Q48h - D/C'd ciprofloxacin per ID; not concerned about pseudomonas . Per ID will need six weeks of IV antibiotics daptomycin moving forward q 48 hour dosing. Discussed with nephro, leonides with place PICC in L arm if need be. Other option is to see if dialysis center would be ok administering IV dapto after HD sessions TTS. CM to follow up. Pt does not want central line. -Will need weekly cbc, cmp, esr, cpk while on abx -07/09: S/P right hand I&D and amputation 4th finger. Will f/u at [facility] with Dr. Colon in 10-14 days -Pain: PO Alvarado 5-325 q6h prn, IV dilaudid .5 mg q4h prn ESRD - Access US performed on arrival indicates patent BPG and patent AVF. - HD TTS as scheduled per nephrology Colon Cancer Spoke with son who mentioned that patient has history of colon cancer diagnosed at [facility] in [place] Requested records transferred over Patient requesting follow up with [facility] oncology and made Dr. Vieyra aware who recommended outpatient scheduling. Diabetes - A1C 6.0 (07/02) - on insulin sliding scale. Appreciate glycemic management consult A. fib w/ history of CVA Anticoagulated with coumadin - home dose: 3 mg Warfarin w/ INR of 1.1 on arrival w/ goal INR 2-3. INR 1.6 today -Moving forward will cont on 3 mg so we do not overshoot and make patient supertherapeutic - Recheck INR daily Hypothyroid Continue home synthroid 250 mg RLS - continue Pramipexole .5 mg QHS FEN: dialysis diet DVT: Warfarin FULL CODE Dispo: Med-Surg. Will be d/c to [facility] Supervising Physician Co-Signing Physician Notes Patient seen and examined with PGY-1 Dr. Israel. Agree with history, exam findings, assessment and plan of care as documented. In brief, Ms. Ardon is a 58 year old female with history significant for ESRD on HD, prior ischemic ulcers, osteomyelitis, afib, CVA admitted with ischemic finger on the right hand. s/p right ring finger amputation for osteomyelitis, culture grew out MRSA, POD#2. Start to transition her to oral pain medication. Alvarado 5-325 q6h (may increase to q4h if necessary) with dilaudid q4h PRN breakthrough pain. Continue dapto q48h. As far as access for dapto administration goes, will check into whether or not this can be done after dialysis upon discharge. Will need to discuss with medical record technician at the dialysis center tomorrow. Appreciate case management's assistance with this. If we are not able to get her the dapto immediately following dialysis, ok for PICC in right arm. Discussed with nephrology. INR subtherapeutic at 1.6. Continue wtih coumadin 3mg. Check INR daily. May be difficult to get her therapeutic initially until the vitamin K clears. Dispo: Pending adequate oral pain medication management and set up of dapto administration. Will be discharged to [place]. Subjective 58 yo M found in bed this AM in NAD. No reported overnight events. R hand pain tolerable per pt. Denies fevers or chills. No other acute concerns or complaints. Review of Systems Review of Systems: All systems reviewed & are unremarkable except as noted in HPI & below Physical Exam Constitutional: WD/WN, vitals as above Eyes: PERRL, conjunctivae normal, anicteric sclerae Respiratory: normal respiratory effort, lungs clear to auscultation Cardiovascular: RRR, no murmur, no edema Gastrointestinal (Abdomen): normal bowel sounds, soft, nontender, no hepatosplenomegaly Musculoskeletal: R hand dressing in place, C/D/I Psychiatric: A+Ox3, euthymic affect Results & Data Vital Signs (Past 12 Hours) Vital Signs Temp Pulse Pulse Resp BP Pulse Ox 07/11/19 11:59 36.8 C 81 18 108/72 96 07/11/19 10:01 89 08/18/19 06:57 36.8 C 95 H 20 122/80 97 07/11/19 03:56 36.9 C 95 H 20 106/69 95 Laboratory Results Laboratory Results - last 24 hr 07/10/19 07/10/19 07/11/19 16:41 20:00 05:26 WBC RBC Hgb Hct MCV MCH MCHC RDW Std Deviation RDW Coeff of Tommy Plt Count MPV Immature Gran % (Auto) Neut % (Auto) Lymph % (Auto) Mcmullen % (Auto) Eos % (Auto) Baso % (Auto) Immature Gran # (Auto) Neut # (Auto) Lymph # (Auto) Mcmullen # (Auto) Eos # (Auto) Baso # (Auto) PT 16.3 H INR 1.6 H Sodium Potassium Chloride Carbon Dioxide Anion Gap BUN Creatinine Est Cr Clr Drug Dosing Est GFR ( Amer) Est GFR (Non-Af Amer) BUN/Creatinine Ratio Glucose POC Glucose 85 119 H Calcium 07/11/19 07/11/19 07/11/19 05:26 05:26 07:44 WBC 8.56 RBC 3.08 L Hgb 9.3 L Hct 30.2 L MCV 98.1 MCH 30.2 MCHC 30.8 L RDW Std Deviation 56.2 H RDW Coeff of Tommy 15.8 H Plt Count 252 MPV 9.7 Immature Gran % (Auto) 1.2 Neut % (Auto) 54.5 Lymph % (Auto) 29.4 Mcmullen % (Auto) 13.1 Eos % (Auto) 1.3 Baso % (Auto) 0.5 Immature Gran # (Auto) 0.10 H Neut # (Auto) 4.67 Lymph # (Auto) 2.52 Mcmullen # (Auto) 1.12 H Eos # (Auto) 0.11 Baso # (Auto) 0.04 PT INR Sodium 136 Potassium 4.1 Chloride 103 Carbon Dioxide 28 Anion Gap 5.0 BUN 12 Creatinine 3.22 H D Est Cr Clr Drug Dosing 21.6 Est GFR ( Amer) 17.2 Est GFR (Non-Af Amer) 14.9 BUN/Creatinine Ratio 3.6 L Glucose 98 POC Glucose 97 Calcium 8.5 07/11/19 11:47 WBC RBC Hgb Hct MCV MCH MCHC RDW Std Deviation RDW Coeff of Tommy Plt Count MPV Immature Gran % (Auto) Neut % (Auto) Lymph % (Auto) Mcmullen % (Auto) Eos % (Auto) Baso % (Auto) Immature Gran # (Auto) Neut # (Auto) Lymph # (Auto) Mcmullen # (Auto) Eos # (Auto) Baso # (Auto) PT INR Sodium Potassium Chloride Carbon Dioxide Anion Gap BUN Creatinine Est Cr Clr Drug Dosing Est GFR ( Amer) Est GFR (Non-Af Amer) BUN/Creatinine Ratio Glucose POC Glucose 116 H Calcium Medications Administered Current Inpatient Medications Acetaminophen (Tylenol) 650 mg PO Q4H PRN PRN Reason: Pain or Fever Stop: 07/31/19 19:57 Last Admin: 07/10/19 04:31 Dose: 650 mg Documented by: Aspirin (Ecotrin Ectab) 81 mg PO DAILY [facility] Stop: 08/01/19 08:59 Last Admin: 07/11/19 08:01 Dose: 81 mg Documented by: Bisacodyl (Dulcolax) 10 mg CA DAILY PRN PRN Reason: Constipation Stop: 07/31/19 20:13 Bisacodyl (Dulcolax) 5 mg PO DAILY PRN PRN Reason: Constipation Stop: 07/31/19 20:13 Last Admin: 07/08/19 09:14 Dose: 5 mg Documented by: Bumetanide (Bumex) 2 mg PO DAILY [facility] Stop: 08/01/19 08:59 Last Admin: 07/11/19 07:58 Dose: 2 mg Documented by: Dextrose (Dextrose 50%) 25 - 50 ml IV UD PRN; Protocol PRN Reason: Hypoglycemia Protocol Stop: 07/31/19 20:08 Diphenhydramine HCl (Benadryl) 25 mg IV Q4H PRN PRN Reason: Allergic Reaction Stop: 07/31/19 20:37 Last Admin: 07/06/19 01:43 Dose: 25 mg Documented by: Docusate Sodium (Colace) 100 mg PO BID [facility] Stop: 08/08/19 20:59 Last Admin: 07/11/19 07:58 Dose: 100 mg Documented by: Glucose (Dex4 Glucose) 4 - 8 tabs PO UD PRN; Protocol PRN Reason: Hypoglycemia Protocol Stop: 07/31/19 20:08 Glucose (Glucose 40%) 15 - 30 gm PO UD PRN; Protocol PRN Reason: Hypoglycemia Protocol Stop: 07/31/19 20:08 Hydromorphone HCl (Dilaudid) 0.5 mg IV Q4H PRN PRN Reason: Pain Stop: 07/18/19 22:27 Daptomycin 450 mg/ Syringe 9 mls @ 0 mls/min IV Q48H [facility]; Protocol Stop: 07/11/19 20:59 Last Admin: 07/09/19 16:03 Dose: 1 mls/min Documented by: Insulin Aspart (Novolog Flexpen) 0 units SC ACHS [facility]; Protocol Stop: 08/01/19 07:29 Last Admin: 07/11/19 11:57 Dose: 7 units Documented by: Insulin Glargine (Lantus Solostar Pen) [facility] [place] Protocol Stop: 08/10/19 08:59 Last Admin: 07/11/19 08:33 Dose: Not Given Documented by: Levothyroxine Sodium (Synthroid) 250 mcg PO DAILYBB [facility] Stop: 08/01/19 06:29 Last Admin: 07/11/19 05:32 Dose: 250 mcg Documented by: Lidocaine/Prilocaine (Emla 2.5%) 1 ea EXT DAILY PRN PRN Reason: PRIOR TO DIALYSIS Stop: 07/31/19 20:13 Metoprolol Tartrate (Lopressor) 25 mg PO BID [facility] Stop: 07/31/19 20:59 Last Admin: 07/11/19 07:47 Dose: Not Given Documented by: Miscellaneous (Carbohydrates For Hypoglycemia) 15 - 30 gm PO UD PRN PRN Reason: Hypoglycemia Treatment Stop: 07/31/19 20:08 Miscellaneous Information (Consult Glycemic Management Pharmacy) 1 ea N/A UD PRN; Protocol PRN Reason: Consult Stop: 07/31/19 21:14 Multi-Ingredient Cream (Hydrocerin) 1 appln EXT BID [facility] Stop: 08/01/19 20:59 Last Admin: 07/11/19 08:01 Dose: 1 appln Documented by: Polyethylene Glycol (Miralax Powder Packet) 17 gm PO QAM [facility] Stop: 08/01/19 08:59 Last Admin: 07/11/19 08:00 Dose: 17 gm Documented by: Polyethylene Glycol (Miralax Powder Packet) 17 gm PO DAILY [facility] Stop: 08/09/19 08:59 Last Admin: 07/11/19 08:02 Dose: 17 gm Documented by: Pramipexole Dihydrochloride (Mirapex) 0.25 mg PO HS [facility] Stop: 07/31/19 20:59 Last Admin: 07/10/19 20:09 Dose: 0.25 mg Documented by: Sennosides (Senokot) 8.6 mg PO HS PRN PRN Reason: Constipation Stop: 07/31/19 20:13 Last Admin: 07/08/19 20:51 Dose: 8.6 mg Documented by: Sevelamer HCl (Renagel) 800 mg PO TIDM [facility] Stop: 08/01/19 07:59 Last Admin: 07/11/19 11:58 Dose: 800 mg Documented by: Tramadol HCl (Ultram) 50 mg PO Q4H PRN PRN Reason: Pain Stop: 08/10/19 14:01 Vitamin B Complex/Folic Acid (Nephrocaps) 1 cap PO QAM [facility] Stop: 08/02/19 10:59 Last Admin: 07/11/19 07:58 Dose: 1 cap Documented by: Vitamin D (Vitamin D3) 2,000 units PO QAM [facility] Stop: 08/01/19 08:59 Last Admin: 07/11/19 07:58 Dose: 2,000 units Documented by: Vitamin D (Vitamin D3) 2,000 units PO DAILY [facility] Stop: 08/09/19 08:59 Last Admin: 07/11/19 08:02 Dose: 2,000 units Documented by: Warfarin Sodium (Coumadin) 3 mg PO DAILY@1600 [facility] Stop: 08/07/19 15:59 Last Admin: 07/10/19 15:55 Dose: 3 mg Documented by: PG Care Time/CCT Total # of Minutes Spent Total Time Spent with Patient: Total time spent is greater than 50% in coordination of care (as documented) at patient's floor/unit and/or counseling patient: Resident Activity Tracking Resident Involvement: Resident Care Provided Care Provided: Adult Hospital Medicine
[2019-07-11] MEDS ORDERED: TRAMADOL HCL 50 MG TABLET PO PRN (14:02)
[2019-07-11] MEDS ORDERED: HYDROCODONE/ACETAMOPHEN 5/325MG TAB PO PRN (16:11)
[2019-07-11] MEDS: WARFARIN SOD 3 MG TAB PO SCH (16:21)
[2019-07-11] MEDS: PRAMIPEXOLE DIHYDROCHLO 0.25 MG TAB PO SCH (19:58)
[2019-07-12] MEDS: LEVOTHYROXINE SODIUM 125 MCG TABLET PO SCH (05:36)
[2019-07-12 07:01] LABS: Basophils # (auto) 0.03 K/uL (0-0.2); Basophils % (auto) 0.4 %; Eosinophils # (auto) 0.08 K/uL (0-0.5); Hematocrit (blood only) 28.7 % (37-47); Hemoglobin 8.8 g/dL (12.0-16.0); Immature Granulocytes # (auto) 0.07 K/uL (0.00-0.02); Immature Granulocytes % (auto) 0.9 %; Lymphocytes # (auto) 2.27 K/uL (1.2-3.4); Lymphocytes % (auto) 29.4 %; Mean Corpuscular Hgb Conc 30.7 g/dL (32-36); Mean Corpuscular Volume 97.6 fL (80-100); Mean Platelet Volume 9.9 fL (7.4-10.4); Monocytes # (auto) 0.84 K/uL (0.11-0.59); Monocytes % (auto) 10.9 %; Neutrophils # (auto) 4.43 K/uL (1.4-6.5); Neutrophils % (auto) 57.4 %; Platelet Count 223 K/uL (130-400); RDW Standard Deviation 57.1 fL (36.4-46.3); Red Blood Count 2.94 M/uL (4.2-5.4); White Blood Count 7.72 K/uL (4.8-10.8)
[2019-07-12 07:13] LABS: INR 2.2 (0.9-1.1); Prothrombin Time 21.1 Seconds (9.0-12.0)
[2019-07-12 07:44] LABS: BUN Creatinine Ratio 4.4 (10-20); Calcium 8.4 mg/dl (8.5-10.1); Creatinine Clr Calc Pharmacy 14.6 ml/min; Est GFR (African American) 10.8; Est GFR (Non-African American) 9.3; Potassium 4.1 mmol/L (3.5-5.1)
--- NOTE | 2019-07-12 07:46 | Operative Report ---
DATE OF OPERATION: 07/09/2019 PREOPERATIVE DIAGNOSES: 1. Right ring finger gangrene. 2. Right ring finger infection. 3. Right hand infection. POSTOPERATIVE DIAGNOSES: 1. Right ring finger gangrene. 2. Right ring finger infection. 3. Right hand infection. PROCEDURES: 1. Right ring finger amputation at the metacarpal level. 2. Right hand irrigation and debridement of open wound. SURGEON: Junito Colon MD HOSPITAL SOCIAL WORKER: None. ANESTHESIA: General. INDICATIONS: This is a 58-year-old female with progressive gangrene in her ring finger. She presents after amputations of the second and third digits with a well-healing incision, but she presents with gangrene of the ring finger and she is status post irrigation and debridement by one of my partners with a partial removal of the metacarpal. The risks and benefits have been discussed including, but not limited to, risk of infection, nerve injury, stiffness, loss of motion, failure to improve, etc. Reasonable outcomes and options of treatment were discussed. An explanation of appropriate alternatives to the procedure that may be advantageous were discussed and their risks and benefits, as well as the risks and benefits of not proceeding with treatment. I offered to answer any additional inquiries concerning the treatment involved. All the patient's questions were answered. The patient is agreeable, understanding of the treatment plan and alternatives, and wishes to proceed with the treatment plan. DESCRIPTION OF OPERATION: With the scalpel, I excised necrotic tissue over the dorsal aspect of the hand. I extended this in elliptical fashion around the finger. Finger was completely and necrotic and infected. I amputated the finger at the level of the metacarpal and I debrided the skin, subcutaneous tissue and bone in that area. There was significant scar tissue identified from previous surgeries. I incised the flexor tendons and allowed them to retract proximally. The wound was copiously irrigated with 1 liter of normal saline. The wound looked fairly clean at the end and did show excellent vascular blood supply. I did use a forearm tourniquet and this was let down after the finger was removed. Hemostasis was obtained with bipolar electrocautery. There did appear to be good bleeding in the area of incision. I then closed the skin with 3-0 nylon in a simple running and mattress fashion. This did result in complete closure of the wound. I did not feel any packing was necessary or required. A dry sterile dressing was applied. The patient was sent to the PACU in a stable condition. I attest to the content of the Intraoperative Record and any orders documented therein. Any exception s are noted below.
--- NOTE | 2019-07-12 08:15 | Anesthesiology Progress Note ---
Date of Service July 12, 2019 Anesthesia Post Procedure Vital Signs Vital Signs: Temp Pulse Pulse Pulse Resp BP Pulse Ox 07/12/19 05:41 36.9 C 88 18 98/63 L 97 07/12/19 00:00 91 H 07/11/19 23:59 36.9 C 89 20 111/65 94 07/11/19 19:59 97 H 121/76 07/11/19 19:13 36.8 C 91 H 18 109/67 95 07/11/19 16:51 90 07/11/19 15:26 36.8 C 94 H 18 116/54 L 98 07/11/19 11:59 36.8 C 81 18 108/72 96 07/11/19 10:01 89 Pain Intensity Right Hand: Pain Intensity: 4 Notes Mental Status: alert / awake / arousable Patient Amnestic to Procedure: Yes Nausea / Vomiting: adequately controlled Pain: adequately controlled Airway Patency, RR, SpO2: stable & adequate BP & HR: stable & adequate Hydration State: stable & adequate Anesthetic Complications: no major complications apparent and Pt Satisfied with anesthetic care
[2019-07-12] MEDS: INSULIN ASPART 100 UNITS/ML 3 ML PEN SC SCH ×4 (08:52→20:42)
[2019-07-12] MEDS: METOPROLOL TARTRATE 25 MG TAB PO SCH ×2 (08:53→19:57)
[2019-07-12] MEDS: SEVELAMER HCL 800 MG TABLET PO SCH ×3 (08:53→17:27)
[2019-07-12] MEDS: DOCUSATE SODIUM 100 MG CAP PO SCH ×2 (08:54→19:56)
[2019-07-12] MEDS: ASPIRIN 81 MG ECTAB PO SCH (08:54)
[2019-07-12] MEDS: BUMETANIDE 1 MG TAB PO SCH (08:54)
[2019-07-12] MEDS: NEPHROCAPS PO SCH (08:55)
[2019-07-12] MEDS: POLYETHYLENE (MIRALAX) 17 GM PACK PO SCH ×2 (08:55→09:21)
[2019-07-12] MEDS: CHOLECALCIFEROL 1,000 UNITS TAB PO SCH ×2 (08:55→09:21)
[2019-07-12] MEDS: INSULIN GLARGINE SOLOSTAR 100 UNITS/ML 3 ML PEN SC SCH (08:55)
[2019-07-12] MEDS: EUCERIN CR 120 GM JAR EXT SCH ×2 (08:56→19:56)
--- NOTE | 2019-07-12 09:48 | Nephrology Progress Note ---
Date of Service July 12, 2019 Assessment & Plan (1) End-stage renal disease on hemodialysis: 58 y o F with ESRD on HD TTS. Admitted with rt hand ischemic ulcer. On IV Daptomycin and Ertapenem. Had debridement on 07/04/2019. I&D 07/09/19. Continue HD per TTS schedule. BP and volume status are currently appropriate. Patient is on a renal diet. Medications are appropriately dosed for kidney function. Electrolytes are within normal limits. AVF has been functioning well. Epogen and Venofer provided with dialysis for anemia. (2) Ischemic ulcer: IV Daptomycin to be continued at discharge. Certainly reasonable to try to coordinate with dialysis through [place], if unable patient will require LUE PICC which is certainly not ideal due to declining options for HD access. (3) Hypertension: BP acceptable. (4) Atrial fibrillation: On warfarin therapy (5) Diabetes mellitus, type 2: Subjective No acute events overnight. Very emotional this morning. States that she needs to go home. Pain control adequate. No fevers or chills. Review of Systems Review of Systems: All systems reviewed & are unremarkable except as noted in HPI & below Physical Exam Constitutional: well developed and + obese; no acute distress Eyes: no scleral abnormality and no corneal abnormality ENMT: Ears: + hearing impairment Mouth: no oral mucosal abnormality and oral mucous membranes not dry Neck: normal visual inspection; + trachea not midline Respiratory: normal respiratory effort Auscultation: lungs clear to auscultation bilaterally Cardiovascular: Rate/Rhythm: regular rate Heart Sounds: normal S1, normal S2 and + murmur Extremities: + AV fistula Musculoskeletal: Extremities: no cyanosis and no clubbing Skin: normal turgor; no lesions Neurologic: Motor/Sensory: no tremor and no asterixis Psychiatric: Orientation: alert and oriented x 3 Results & Data Vital Signs (Past 12 Hours) Vital Signs Temp Pulse Pulse Resp BP Pulse Ox 07/12/19 09:30 80 07/12/19 08:00 36.8 C 85 18 109/69 96 07/12/19 05:41 36.9 C 88 18 98/63 L 97 07/12/19 00:00 91 H 07/11/19 23:59 36.9 C 89 20 111/65 94 Laboratory Results Laboratory Results - last 24 hr 07/11/19 07/11/19 07/11/19 11:47 16:52 20:43 WBC RBC Hgb Hct MCV MCH MCHC RDW Std Deviation RDW Coeff of Tommy Plt Count MPV Immature Gran % (Auto) Neut % (Auto) Lymph % (Auto) [place] % (Auto) Eos % (Auto) Baso % (Auto) Immature Gran # (Auto) Neut # (Auto) Lymph # (Auto) [place] # (Auto) Eos # (Auto) Baso # (Auto) PT INR Sodium Potassium Chloride Carbon Dioxide Anion Gap BUN Creatinine Est Cr Clr Drug Dosing Est GFR ( Amer) Est GFR (Non-Af Amer) BUN/Creatinine Ratio Glucose POC Glucose 116 H 106 H 116 H Calcium 07/12/19 07/12/19 07/12/19 06:51 06:51 06:51 WBC 7.72 RBC 2.94 L Hgb 8.8 L Hct 28.7 L MCV 97.6 MCH 29.9 MCHC 30.7 L RDW Std Deviation 57.1 H RDW Coeff of Tommy 16.0 H Plt Count 223 MPV 9.9 Immature Gran % (Auto) 0.9 Neut % (Auto) 57.4 Lymph % (Auto) 29.4 [place] % (Auto) 10.9 Eos % (Auto) 1.0 Baso % (Auto) 0.4 Immature Gran # (Auto) 0.07 H Neut # (Auto) 4.43 Lymph # (Auto) 2.27 Gooding # (Auto) 0.84 H Eos # (Auto) 0.08 Baso # (Auto) 0.03 PT 21.1 H INR 2.2 H Sodium 137 Potassium 4.1 Chloride 103 Carbon Dioxide 25 Anion Gap 9.0 BUN 21 H D Creatinine 4.76 H* D Est Cr Clr Drug Dosing 14.6 Est GFR ( Amer) 10.8 Est GFR (Non-Af Amer) 9.3 BUN/Creatinine Ratio 4.4 L Glucose 123 H POC Glucose Calcium 8.4 L 07/12/19 07:46 WBC RBC Hgb Hct MCV MCH MCHC RDW Std Deviation RDW Coeff of Tommy Plt Count MPV Immature Gran % (Auto) Neut % (Auto) Lymph % (Auto) [place] % (Auto) Eos % (Auto) Baso % (Auto) Immature Gran # (Auto) Neut # (Auto) Lymph # (Auto) Gooding # (Auto) Eos # (Auto) Baso # (Auto) PT INR Sodium Potassium Chloride Carbon Dioxide Anion Gap BUN Creatinine Est Cr Clr Drug Dosing Est GFR ( Amer) Est GFR (Non-Af Amer) BUN/Creatinine Ratio Glucose POC Glucose 125 H Calcium PG Care Time/CCT Total # of Minutes Spent Total Time Spent with Patient: Total time spent is greater than 50% in coordination of care (as documented) at patient's floor/unit and/or counseling patient:
--- NOTE | 2019-07-12 10:42 | Infectious Disease Progress Nt ---
Date of Service July 12, 2019 Assessment & Plan (1) Osteomyelitis of hand, right, acute: will stop cipro, continue dapto at Q48 hour dosing, will need 6 weeks of IV abx post op, will need weekly cbc, cmp, esr, cpk while on abx. can follow with ID post d/c. Subjective s/p OR I&D and 4th finger amp, tolerated well. OR cultures growing MRSA, she remains on renal dosed Dapto. tolerating well. afebrile. wbc 7 Results & Data Vital Signs (Past 12 Hours) Vital Signs Temp Pulse Pulse Resp BP Pulse Ox 07/12/19 09:30 80 07/12/19 08:00 36.8 C 85 18 109/69 96 07/12/19 05:41 36.9 C 88 18 98/63 L 97 07/12/19 00:00 91 H 07/11/19 23:59 36.9 C 89 20 111/65 94 Laboratory Results Microbiology 07/09/19 Unknown Finger,Right Ring Gram Stain - Final 07/09/19 Unknown Finger,Right Ring Aerobic and Anaerobic Culture - Preliminary Staph aureus MRSA 07/04/19 12:30 Finger,Right Ring Gram Stain - Final 07/04/19 12:30 Finger,Right Ring Aerobic and Anaerobic Culture - Final Staph aureus MRSA 07/01/19 20:26 Blood Aerobic Blood Culture - Final No growth in Aerobic bottle after 5 days. 07/01/19 20:26 Blood Anaerobic Blood Culture - Final 07/01/19 19:52 Hand,Right Gram Stain - Final 07/01/19 19:52 Hand,Right Wound Culture - Final Staph aureus MRSA PG Care Time/CCT Total # of Minutes Spent Total Time Spent with Patient: Total time spent is greater than 50% in coordination of care (as documented) at patient's floor/unit and/or counseling patient:
[2019-07-12] MEDS: HYDROCODONE/ACETAMOPHEN 5/325MG TAB PO PRN (12:20)
[2019-07-12] MEDS: WARFARIN SOD 3 MG TAB PO SCH (16:56)
--- NOTE | 2019-07-12 17:01 | Orthopedic Progress Note ---
Date of Service July 12, 2019 Assessment & Plan (1) Ischemic finger: POD 3 s/p amputation right 4th finger; I/D right hand wound Continue daily dressing changes INR 2.2 today. Plan discussed with Med Service (Dr Duckworth). Hold Coumadin today and restart tomorrow. No further surgery needed at this time. Orthopedics will sign off at this time. Please call with any questions. Subjective POD 3 s/p I/D right hand with amputation right 4th finger. Nursing relates moderate bleeding today from the wound. Dressings were changed approximately 4 times today due to saturation of dressing. Pt sitting in chair at bedside. No new complaints. Pain off and on in the right hand. Physical Exam Physical Exam: Dressings removed. No active bleeding noted at this time. Wound benign. No erythema. Tissue around wound pink with good refill. No purulence noted. Redressed with adaptic, 4x4's, webril, and bulmaro wrap. Results & Data Vital Signs (Past 12 Hours) Vital Signs Temp Pulse Pulse Resp BP BP Pulse Ox 07/12/19 15:53 36.8 C 73 20 129/58 L 100 07/12/19 12:00 36.5 C 72 20 139/75 100 07/12/19 09:30 80 07/12/19 08:00 36.8 C 85 18 109/69 96 07/12/19 05:41 36.9 C 88 18 98/63 L 97
--- NOTE | 2019-07-12 17:25 | Family Medicine Progress Note ---
Date of Service July 12, 2019 Assessment & Plan (1) Cellulitis of right hand: 58-year-old female with DM, A. fib, hypothyroid, RLS, on dialysis for ESRD transferred to [facility] for right hand infection now on Daptomycin previously on Vancomycin and linezolid OSH and previously failed imipenem cilastin therapy. Orthopaedic surgery performed operative debridement 07/04/2019, 4th finger amputation on 07/09. Acute right hand infection - MRI results highly suspicious for osteomyelitis of the 4th metacarpal base, concern for septic arthritis, concern for infection of the tenosynovitis of the flexor tendon of the 4th digit - wound cultures grew MRSA from 07/01/2019 - no indications for vascular surgical intervention - Daptomycin 450 mg IV Q48h -D/C'd ciprofloxacin per ID; not concerned about pseudomonas . Per ID will need six weeks of IV antibiotics daptomycin moving forward q 48 hour dosing. Discussed with nephro, ok with place PICC in L arm if need be. Other option is to see if dialysis center would be ok administering IV dapto after HD sessions TTS. CM to follow up. Pt declines central line. -Will need weekly cbc, cmp, esr, cpk while on abx -07/09: S/P right hand I&D and amputation 4th finger. Will f/u at [facility] with Dr. Colon in 10-14 days -Pain: PO tramadol 50 mg q4h prn, IV dilaudid .5 mg q4h prn ESRD - Access US performed on arrival indicates patent BPG and patent AVF. - HD TTS as scheduled per nephrology Colon Cancer Spoke with son who mentioned that patient has history of colon cancer diagnosed at [facility] [place] Requested records transferred over Patient requesting follow up with [facility] oncology and made Dr. Vieyra aware who recommended outpatient scheduling. Diabetes - A1C 6.0 (07/02) - on insulin sliding scale. Appreciate glycemic management consult A. fib w/ history of CVA Discussed with pharmacology the potential interaction between Warfarin and Cipro, but given the interaction is not a true drug-drug interaction and the risk of not properly anticoagulating a patient with a 9.8 % per year risk of stroke was concerning, Warfarin was continued. - home dose: 3 mg Warfarin w/ INR of 1.1 on arrival w/ goal INR 2-3. INR 2.2 today -Warfarin held today 2/2 concerns of bleeding. Will restart tomorrow -Moving forward will cont on 3 mg so we do not overshoot and make patient supertherapeutic - Recheck INR daily, even on d/c Hypothyroid Continue home synthroid 250 mg RLS - continue Pramipexole .5 mg QHS FEN: dialysis diet DVT: Warfarin FULL CODE Dispo: Med-Surg. Will be d/c to [facility] Supervising Physician Co-Signing Physician Notes I personally examined the patient and verified all niño points of history and exam, discussed case, and agree with decision making with Dr Duckworth. Feeling sad. Would like to get out of the hospital. No other acute complaints. Vitals noted, in general she is awake and alert appears sad but no physical distress. HEENT normocephalic atraumatic mucous membranes moist. Breathing unlabored no accessory muscle use good effort. Skin shows no rashes no pallor or icterus. Right hand is dressed with a little bit of bleeding seeping through the dressing, no tracking erythema up her arm. No new focal neuro deficits. Hand cellulitis/osteomy/septic joint/tenosynovitiscontinue daptomycin and wound care. Stable for SNF once ongoing dosing of daptomycin has been worked out. Continue to titrate Coumadin, okay to hold today due to hand bleeding. Otherwise as above Subjective 58 yo M found in bed this AM in NAD. No reported overnight events. R hand pain tolerable per pt. Denies fevers or chills. Some reports of bleeding through dressing. Ortho changed dressing and bleeding stablilized. Warfarin held. No other acute concerns or complaints. Review of Systems Review of Systems: All systems reviewed & are unremarkable except as noted in HPI & below Physical Exam Constitutional: WD/WN, vitals as above Eyes: PERRL, conjunctivae normal, anicteric sclerae Neck: trachea midline, no thyromegaly Respiratory: normal respiratory effort, lungs clear to auscultation Cardiovascular: RRR, no murmur, no edema Gastrointestinal (Abdomen): normal bowel sounds, soft, nontender, no hepatosplenomegaly Musculoskeletal: R hand bandaged. Some bleeding noted to seep through. Psychiatric: A+Ox3, euthymic affect Results & Data Vital Signs (Past 12 Hours) Vital Signs Temp Pulse Pulse Resp BP BP Pulse Ox 07/12/19 15:53 36.8 C 73 20 129/58 L 100 07/12/19 12:00 36.5 C 72 20 139/75 100 07/12/19 09:30 80 07/12/19 08:00 36.8 C 85 18 109/69 96 07/12/19 05:41 36.9 C 88 18 98/63 L 97 Laboratory Results Laboratory Results - last 24 hr 07/11/19 07/12/19 07/12/19 20:43 06:51 06:51 WBC 7.72 RBC 2.94 L Hgb 8.8 L Hct 28.7 L MCV 97.6 MCH 29.9 MCHC 30.7 L RDW Std Deviation 57.1 H RDW Coeff of Tommy 16.0 H Plt Count 223 MPV 9.9 Immature Gran % (Auto) 0.9 Neut % (Auto) 57.4 Lymph % (Auto) 29.4 Hutchinson % (Auto) 10.9 Eos % (Auto) 1.0 Baso % (Auto) 0.4 Immature Gran # (Auto) 0.07 H Neut # (Auto) 4.43 Lymph # (Auto) 2.27 Hutchinson # (Auto) 0.84 H Eos # (Auto) 0.08 Baso # (Auto) 0.03 PT 21.1 H INR 2.2 H Sodium Potassium Chloride Carbon Dioxide Anion Gap BUN Creatinine Est Cr Clr Drug Dosing Est GFR ( Amer) Est GFR (Non-Af Amer) BUN/Creatinine Ratio Glucose POC Glucose 116 H Calcium 07/12/19 07/12/19 07/12/19 06:51 07:46 11:38 WBC RBC Hgb Hct MCV MCH MCHC RDW Std Deviation RDW Coeff of Tommy Plt Count MPV Immature Gran % (Auto) Neut % (Auto) Lymph % (Auto) Hutchinson % (Auto) Eos % (Auto) Baso % (Auto) Immature Gran # (Auto) Neut # (Auto) Lymph # (Auto) Hutchinson # (Auto) Eos # (Auto) Baso # (Auto) PT INR Sodium 137 Potassium 4.1 Chloride 103 Carbon Dioxide 25 Anion Gap 9.0 BUN 21 H D Creatinine 4.76 H* D Est Cr Clr Drug Dosing 14.6 Est GFR ( Amer) 10.8 Est GFR (Non-Af Amer) 9.3 BUN/Creatinine Ratio 4.4 L Glucose 123 H POC Glucose 125 H 159 H Calcium 8.4 L 07/12/19 16:34 WBC RBC Hgb Hct MCV MCH MCHC RDW Std Deviation RDW Coeff of Tommy Plt Count MPV Immature Gran % (Auto) Neut % (Auto) Lymph % (Auto) Hutchinson % (Auto) Eos % (Auto) Baso % (Auto) Immature Gran # (Auto) Neut # (Auto) Lymph # (Auto) Hutchinson # (Auto) Eos # (Auto) Baso # (Auto) PT INR Sodium Potassium Chloride Carbon Dioxide Anion Gap BUN Creatinine Est Cr Clr Drug Dosing Est GFR ( Amer) Est GFR (Non-Af Amer) BUN/Creatinine Ratio Glucose POC Glucose 91 Calcium Medications Administered Current Inpatient Medications Hydrocodone Bitart/Acetaminophen ([place] 5/325) 1 tab PO Q4H PRN PRN Reason: Pain Stop: 07/25/19 16:10 Last Admin: 07/12/19 12:20 Dose: 1 tab Documented by: Aspirin (Ecotrin Ectab) 81 mg PO DAILY [facility] Stop: 08/01/19 08:59 Last Admin: 07/12/19 08:54 Dose: 81 mg Documented by: Bisacodyl (Dulcolax) 10 mg [place] DAILY PRN PRN Reason: Constipation Stop: 07/31/19 20:13 Bisacodyl (Dulcolax) 5 mg PO DAILY PRN PRN Reason: Constipation Stop: 07/31/19 20:13 Last Admin: 07/08/19 09:14 Dose: 5 mg Documented by: Bumetanide (Bumex) 2 mg PO DAILY [facility] Stop: 08/01/19 08:59 Last Admin: 07/12/19 08:54 Dose: 2 mg Documented by: Dextrose (Dextrose 50%) 25 - 50 ml IV UD PRN; Protocol PRN Reason: Hypoglycemia Protocol Stop: 07/31/19 20:08 Diphenhydramine HCl (Benadryl) 25 mg IV Q4H PRN PRN Reason: Allergic Reaction Stop: 07/31/19 20:37 Last Admin: 07/06/19 01:43 Dose: 25 mg Documented by: Docusate Sodium (Colace) 100 mg PO BID [facility] Stop: 08/08/19 20:59 Last Admin: 07/12/19 08:54 Dose: 100 mg Documented by: Glucose (Dex4 Glucose) 4 - 8 tabs PO UD PRN; Protocol PRN Reason: Hypoglycemia Protocol Stop: 07/31/19 20:08 Glucose (Glucose 40%) 15 - 30 gm PO UD PRN; Protocol PRN Reason: Hypoglycemia Protocol Stop: 07/31/19 20:08 Hydromorphone HCl (Dilaudid) 0.5 mg IV Q4H PRN PRN Reason: Pain Stop: 07/18/19 22:27 Sodium Chloride (Nss 1000ml) 1,000 mls @ 0 mls/hr IV .Q0M PRN PRN Reason: For Hemodialysis Use ONLY Stop: 07/13/19 12:59 Insulin Aspart (Novolog Flexpen) 0 units SC ACHS [facility]; Protocol Stop: 08/01/19 07:29 Last Admin: 07/12/19 12:21 Dose: 9 units Documented by: Insulin Glargine (Lantus Solostar Pen) 11 units SC QAM [facility]; Protocol Stop: 08/10/19 08:59 Last Admin: 07/12/19 08:55 Dose: 11 units Documented by: Levothyroxine Sodium (Synthroid) 250 mcg PO DAILYBB [facility] Stop: 08/01/19 06:29 Last Admin: 07/12/19 05:36 Dose: 250 mcg Documented by: Lidocaine/Prilocaine (Emla 2.5%) 1 ea EXT DAILY PRN PRN Reason: PRIOR TO DIALYSIS Stop: 07/31/19 20:13 Metoprolol Tartrate (Lopressor) 25 mg PO BID [facility] Stop: 07/31/19 20:59 Last Admin: 07/12/19 08:53 Dose: 25 mg Documented by: Miscellaneous (Carbohydrates For Hypoglycemia) 15 - 30 gm PO UD PRN PRN Reason: Hypoglycemia Treatment Stop: 07/31/19 20:08 Miscellaneous Information (Consult Glycemic Management Pharmacy) 1 ea N/A UD PRN; Protocol PRN Reason: Consult Stop: 07/31/19 21:14 Multi-Ingredient Cream (Hydrocerin) 1 appln EXT BID [facility] Stop: 08/01/19 20:59 Last Admin: 07/12/19 08:56 Dose: 1 appln Documented by: Polyethylene Glycol (Miralax Powder Packet) 17 gm PO DAILY [facility] Stop: 08/09/19 08:59 Last Admin: 07/12/19 09:21 Dose: Not Given Documented by: Pramipexole Dihydrochloride (Mirapex) 0.25 mg PO HS [facility] Stop: 07/31/19 20:59 Last Admin: 07/11/19 19:58 Dose: 0.25 mg Documented by: Sennosides (Senokot) 8.6 mg PO HS PRN PRN Reason: Constipation Stop: 07/31/19 20:13 Last Admin: 07/08/19 20:51 Dose: 8.6 mg Documented by: Sevelamer HCl (Renagel) 800 mg PO TIDM [facility] Stop: 08/01/19 07:59 Last Admin: 07/12/19 12:20 Dose: 800 mg Documented by: Vitamin B Complex/Folic Acid (Nephrocaps) 1 cap PO QAM [facility] Stop: 08/02/19 10:59 Last Admin: 07/12/19 08:55 Dose: 1 cap Documented by: Vitamin D (Vitamin D3) 2,000 units PO DAILY [facility] Stop: 08/09/19 08:59 Last Admin: 07/12/19 09:21 Dose: Not Given Documented by: Warfarin Sodium (Coumadin) 3 mg PO DAILY@1600 [facility] Stop: 08/07/19 15:59 Last Admin: 07/12/19 16:56 Dose: Not Given Documented by: PG Care Time/CCT Total # of Minutes Spent Total Time Spent with Patient: Total time spent is greater than 50% in coordination of care (as documented) at patient's floor/unit and/or counseling patient: Resident Activity Tracking Resident Involvement: Resident Care Provided Care Provided: Adult Hospital Medicine
[2019-07-12] MEDS: PRAMIPEXOLE DIHYDROCHLO 0.25 MG TAB PO SCH (20:04)
[2019-07-13 06:07] LABS: Basophils # (auto) 0.03 K/uL (0-0.2); Basophils % (auto) 0.4 %; Eosinophils # (auto) 0.09 K/uL (0-0.5); Eosinophils % (auto) 1.1 %; Hematocrit (blood only) 29.3 % (37-47); Hemoglobin 9.2 g/dL (12.0-16.0); Immature Granulocytes # (auto) 0.06 K/uL (0.00-0.02); Immature Granulocytes % (auto) 0.7 %; Lymphocytes % (auto) 26.7 %; Mean Corpuscular Hgb Conc 31.4 g/dL (32-36); Mean Platelet Volume 9.8 fL (7.4-10.4); Monocytes # (auto) 0.91 K/uL (0.11-0.59); Neutrophils # (auto) 4.96 K/uL (1.4-6.5); Neutrophils % (auto) 60.1 %; Platelet Count 249 K/uL (130-400); RDW Coefficient of Variation 16.1 % (11.5-14.5); RDW Standard Deviation 57.2 fL (36.4-46.3); Red Blood Count 3.02 M/uL (4.2-5.4); White Blood Count 8.25 K/uL (4.8-10.8)
[2019-07-13 06:28] LABS: INR 2.7 (0.9-1.1); Prothrombin Time 25.9 Seconds (9.0-12.0)
[2019-07-13] MEDS: LEVOTHYROXINE SODIUM 125 MCG TABLET PO SCH (06:30)
[2019-07-13] MEDS ORDERED: SODIUM CHLORIDE 0.9% 1000ML 1,000 ML IV PRN (07:00)
[2019-07-13 07:12] LABS: BUN Creatinine Ratio 5.1 (10-20); Calcium 8.5 mg/dl (8.5-10.1); Creatinine Clr Calc Pharmacy 12.1 ml/min; Est GFR (African American) 8.5; Est GFR (Non-African American) 7.4; Potassium 4.2 mmol/L (3.5-5.1)
[2019-07-13] MEDS: HYDROCODONE/ACETAMOPHEN 5/325MG TAB PO PRN ×3 (07:25→21:20)
[2019-07-13] MEDS: POLYETHYLENE (MIRALAX) 17 GM PACK PO SCH (07:31)
[2019-07-13] MEDS: BUMETANIDE 1 MG TAB PO SCH (07:32)
[2019-07-13] MEDS: SEVELAMER HCL 800 MG TABLET PO SCH ×3 (07:33→16:40)
[2019-07-13] MEDS: DOCUSATE SODIUM 100 MG CAP PO SCH ×2 (07:33→21:10)
[2019-07-13] MEDS: CHOLECALCIFEROL 1,000 UNITS TAB PO SCH (07:34)
[2019-07-13] MEDS: METOPROLOL TARTRATE 25 MG TAB PO SCH ×2 (07:34→21:11)
[2019-07-13] MEDS: NEPHROCAPS PO SCH (07:35)
[2019-07-13] MEDS: ASPIRIN 81 MG ECTAB PO SCH (07:35)
[2019-07-13] MEDS: EUCERIN CR 120 GM JAR EXT SCH ×2 (08:34→21:10)
[2019-07-13] MEDS: INSULIN ASPART 100 UNITS/ML 3 ML PEN SC SCH ×4 (08:42→21:15)
[2019-07-13] MEDS: INSULIN GLARGINE SOLOSTAR 100 UNITS/ML 3 ML PEN SC SCH (08:43)
--- NOTE | 2019-07-13 09:18 | Nephrology Progress Note ---
Date of Service July 13, 2019 Assessment & Plan (1) End-stage renal disease on hemodialysis: 58 y o F with ESRD on HD TTS. Admitted with rt hand ischemic ulcer. Rx IV Daptomycin. Debridement on 07/04/2019 and 07/09/19. Orders for HD today were entered into the EMR and discussed with the HD nurse. UF goal 2.5 L. Epogen and Venofer provided with dialysis for anemia. (2) Ischemic ulcer: Daptomycin to be continued at discharge. (3) Hypertension: BP acceptable. (4) Atrial fibrillation: Anticoagulated with warfarin. (5) Diabetes mellitus, type 2: Subjective Bleeding from hand resolved. No acute events overnight. Kortney is frustrated by the length of her hospitalization. She states that she feels well. Pain control acceptable. No fevers or chills. Review of Systems Review of Systems: All systems reviewed & are unremarkable except as noted in HPI & below Physical Exam Constitutional: + obese; no acute distress Eyes: no scleral abnormality and no corneal abnormality ENMT: Mouth: no oral mucosal abnormality and oral mucous membranes not dry Neck: normal visual inspection and trachea midline Respiratory: normal respiratory effort Auscultation: lungs clear to auscultation bilaterally Cardiovascular: Rate/Rhythm: regular rate Heart Sounds: normal S1, normal S2 and + murmur Extremities: + AV fistula Musculoskeletal: Extremities: no cyanosis and no clubbing Skin: normal turgor; no lesions Neurologic: Motor/Sensory: no tremor and no asterixis Psychiatric: Orientation: alert and oriented x 3 Results & Data Vital Signs (Past 12 Hours) Vital Signs Temp Pulse Pulse Resp BP Pulse Ox 07/13/19 07:22 36.8 C 79 20 102/39 L 95 07/13/19 04:00 36.7 C 84 18 103/65 97 07/13/19 00:00 36.7 C 86 89 18 134/69 97 07/12/19 23:00 36.7 C 89 18 134/69 97 Laboratory Results Laboratory Results - last 24 hr 07/12/19 07/12/19 07/12/19 11:38 16:34 20:20 WBC RBC Hgb Hct MCV MCH MCHC RDW Std Deviation RDW Coeff of Tommy Plt Count MPV Immature Gran % (Auto) Neut % (Auto) Lymph % (Auto) Grant % (Auto) Eos % (Auto) Baso % (Auto) Immature Gran # (Auto) Neut # (Auto) Lymph # (Auto) Grant # (Auto) Eos # (Auto) Baso # (Auto) PT INR Sodium Potassium Chloride Carbon Dioxide Anion Gap BUN Creatinine Est Cr Clr Drug Dosing Est GFR ( Amer) Est GFR (Non-Af Amer) BUN/Creatinine Ratio Glucose POC Glucose 159 H 91 134 H Calcium 07/13/19 07/13/19 07/13/19 05:38 05:38 05:38 WBC 8.25 RBC 3.02 L Hgb 9.2 L Hct 29.3 L MCV 97.0 MCH 30.5 MCHC 31.4 L RDW Std Deviation 57.2 H RDW Coeff of Tommy 16.1 H Plt Count 249 MPV 9.8 Immature Gran % (Auto) 0.7 Neut % (Auto) 60.1 Lymph % (Auto) 26.7 Grant % (Auto) 11.0 Eos % (Auto) 1.1 Baso % (Auto) 0.4 Immature Gran # (Auto) 0.06 H Neut # (Auto) 4.96 Lymph # (Auto) 2.20 Grant # (Auto) 0.91 H Eos # (Auto) 0.09 Baso # (Auto) 0.03 PT 25.9 H INR 2.7 H Sodium 138 Potassium 4.2 Chloride 104 Carbon Dioxide 26 Anion Gap 8.0 BUN 29 H Creatinine 5.76 H* D Est Cr Clr Drug Dosing 12.1 Est GFR ( Amer) 8.5 Est GFR (Non-Af Amer) 7.4 BUN/Creatinine Ratio 5.1 L Glucose 103 H POC Glucose Calcium 8.5 07/13/19 07:52 WBC RBC Hgb Hct MCV MCH MCHC RDW Std Deviation RDW Coeff of Tommy Plt Count MPV Immature Gran % (Auto) Neut % (Auto) Lymph % (Auto) Grant % (Auto) Eos % (Auto) Baso % (Auto) Immature Gran # (Auto) Neut # (Auto) Lymph # (Auto) Grant # (Auto) Eos # (Auto) Baso # (Auto) PT INR Sodium Potassium Chloride Carbon Dioxide Anion Gap BUN Creatinine Est Cr Clr Drug Dosing Est GFR ( Amer) Est GFR (Non-Af Amer) BUN/Creatinine Ratio Glucose POC Glucose 110 H Calcium PG Care Time/CCT Total # of Minutes Spent Total Time Spent with Patient: Total time spent is greater than 50% in coordination of care (as documented) at patient's floor/unit and/or counseling patient:
[2019-07-13] MEDS ORDERED: EPOETIN ALFA 4,000 UNIT/ML VIAL IV SCH (10:00)
[2019-07-13] MEDS ORDERED: IRON SUCROSE 100 MG in SYRINGE 0 ML IV SCH (10:00)
--- NOTE | 2019-07-13 11:54 | Pharmacy Report ---
PHA: Glycemic Control AP - Date of Service July 13, 2019 - Assessment & Plan The patient is currently receiving 29 units of insulin per day. BSGs ranging 91 - 159 mg/dl over the past 24hrs. * Basal insulin: Lantus 11 units every 24 hours given in the morning * Correctional Insulin: Novolog Correction per scale ACHS Goal Range: Low 110 mg/dL - High 140 mg/dL Correction Factor: 25 mg/dL/unit * Prandial insulin: Per carb ratio of 1 unit per 8 grams CHO consumed BSGs continue to improve, no changes needed to inpatient regimen at this time. Pharmacy will continue to monitor patient daily and write orders per [facility] inpatient glycemic control protocol. Thanks. * Please note that the plan above was derived based on current level of insulin resistance and hospital stress. These recommendations are appropriate for inpatient admission only. Plan of care upon discharge will need to be reassessed to avoid potential outpatient hypo/hyperglycemia.
--- NOTE | 2019-07-13 13:16 | Discharge Summary ---
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 Dr. Lomeli ER physician form [facility] stated that pt did not have HD today when it was scheduled due to the concern that her HD fistula could be affected by ongoing infection and worsening cellulitis of the right hand and remaining ringer 4 and 5th digit.They called Dr. Meza -vascular and arranged consult and admission at [facility]. Pt was discharged from [facility] on 03/24/2019 for the right wound infection and incision and drainage of the dorsal right hand , debridement, right index finger amputation , right 3rd finger amputation and dialysis was ongoing through catheter via femoral vein at that time.Patient reported worsening swelling, redness, and tenderness to her right hand. There is now open angry looking sore on the dorsum of the right hand approximately 4 cm x 5 cm in size. Culture at that time were positive for + corynebacterium, actinomyces and anaerobes. Pt was discharged home with Imipenem/cilastatine AVF with weak thrill and poor bruit-right arm , remains significantly ecchymotic and tender. Patient is unable to hold arm still due to discomfort from recent surgery. On arrival pt labs were ordered and still pending.Spoke to Dr. Meza and he recommneded Arterial Doppler of the right and and to consult orthopedics. Principal Diagnosis r hand infxn Discharge Exam Constitutional WD/WN, vitals as above Eyes PERRL, conjunctivae normal, anicteric sclerae Respiratory normal respiratory effort, lungs clear to auscultation Cardiovascular RRR, no murmur, no edema Gastrointestinal (Abdomen) normal bowel sounds, soft, nontender, no hepatosplenomegaly Musculoskeletal R hand bandaged, C/D/I Psychiatric A+Ox3, euthymic affect Discharge Data Allergies Allergy/AdvReac Type Severity Reaction Status Date / Time oxycodone Allergy Intermediate HIVES,RASH Verified 03/24/19 16:46 Sulfa (Sulfonamide Allergy Intermediate HIVES,RASH Verified 03/24/19 16:46 Antibiotics) cephalexin Allergy Mild HIVES Verified 03/24/19 16:46 Penicillins Allergy Mild RASH Verified 03/24/19 16:46 Carbonic Anhydrase Inhibitors Allergy Unknown Unknown Verified 07/09/19 18:29 Dyazide Allergy Unknown UNKNOWN Verified 05/08/18 11:24 hydrochlorothiazide Allergy Unknown UNKNOWN Verified 03/24/19 16:46 Sulfonylureas Allergy Unknown UNKNOWN Verified 03/24/19 16:46 triamterene Allergy Unknown UNKNOWN Verified 03/24/19 16:46 Consultations 07/01/19 19:58 Consult Nephrology Routine 07/01/19 20:03 Consult Infectious Diseases Routine Consult Vascular Surgery Routine 07/01/19 20:31 Consult Orthopedic Surgery Routine 07/04/19 10:56 Consult Case Management - Discharge Planning Routine 07/11/19 14:06 Consult Case Management - Discharge Planning Routine Procedures Performed Operation Date: 07/03/19 09:35 <No data on this case meets the specified criteria> Operation Date: 07/04/19 09:00 Actual Procedures p Irrigation and Debridement right hand ulcer; Resection of Extensor 4th digit; irrigation and debridement 4th metacarpal phalangeal joint; Resection 4th matcarpal head & proximal phalanyx; Tenosynovectomy of 4th flexor(Right) - Henrik Izaguirre DO Operation Date: 07/09/19 11:45 Actual Procedures p Right Hand Incision and Drainage(Right) - Juvencio Colon MD s Right 4th Finger Amputation(Right) - Juvencio Colon MD Ordered Studies 07/01/19 20:30 hemodialysis access Stat 07/02/19 13:54 MR hand RT wo con Routine Hospital Course (1) Cellulitis of right hand: 58-year-old female with DM, A. fib, hypothyroid, RLS, on dialysis for ESRD transferred to [facility] for right hand infection now on Daptomycin previously on Vancomycin and linezolid at OSH and previously failed imipenem cilastin therapy. Orthopaedic surgery performed operative debridement 07/04/2019, 4th finger amputation on 07/09. The following is the medical management during stay here: Acute right hand infection - MRI results highly suspicious for osteomyelitis of the 4th metacarpal base, concern for septic arthritis, concern for infection of the tenosynovitis of the flexor tendon of the 4th digit - wound cultures grew MRSA from 07/01/2019 - no indications for vascular surgical intervention - Continue on Daptomycin 450 mg IV Q48h. Last dose given day of d/c, 07/13. -D/C'd ciprofloxacin per ID; not concerned about pseudomonas . Per ID will need six weeks of IV antibiotics daptomycin moving forward q 48 hour dosing. We placed a PICC in L arm to administer this. -Pt will need weekly cbc, cmp, esr, cpk while on abx -07/09: S/P right hand I&D and amputation 4th finger. Will f/u at [facility] with Dr. Colon on 07/27 -Pain: PO Houghton 5/325 mg q4h prn ESRD - Access US performed on arrival indicates patent BPG and patent AVF - HD TTS as scheduled per nephrology Diabetes - A1C 6.0 (07/02) - BSG managed with SSI here A. fib w/ history of CVA Discussed with pharmacology the potential interaction between Warfarin and antibiotic, but given the interaction is not a true drug-drug interaction and the risk of not properly anticoagulating a patient with a 9.8 % per year risk of stroke was concerning, Warfarin was continued. - home dose: 3 mg Warfarin w/ INR of 1.1 on arrival w/ goal INR 2-3. INR 2.7 on day of d/c -Moving forward cont on 3 mg so we do not overshoot and make patient supertherapeutic - Recheck INR daily, even on d/c Colon Cancer Spoke with sister who mentioned that patient has [facility] [place] Requested records transferred over, but unable to be obtained. This should be done once pt back at [place]. Patient requesting follow up with [facility] oncology and made Dr. Vieyra aware who recommended outpatient scheduling. Hypothyroid Continue home synthroid 250 mg RLS - continue Pramipexole .5 mg QHS At time of d/c, pt had no other acute concerns or complaints. Total Time Total Time Spent Total Time Spent (In Minutes): 30 Discharge Plan Discharge Items Patient Disposition: Personal [facility] Reason For Visit: RIGHT HAND CELLULITIS Discharge Diagnosis: hand cellulitis Discharge Goals: Improve function and Therapeutic intervention Activity: Per 'Additional Instructions' section Non-emergency contact: Primary Care Provider Call non-emergency contact if: you have any medication questions, your symptoms worsen, your pain is not controlled and your temperature is above 101.5 Follow-up/Referrals: Padmaja Tatum DO [Physician] - 07/27/19 10:45 am (Please, follow up at [facility]'s Infectious Disease Office with Dr. Padmaja Tatum on FridayJuly 27 at 10:45 am. *The office is located in [address] of [facility]. This is the big building next to this hospital. The office address is [address] [place] [address] in [place]. If you need to change this appointment, call the office at [phone].) Juvencio Colon MD [Physician] - 07/27/19 12:00 pm (Please, follow up at [facility] with Dr. Colon's health center assistant, Sandy Mascorro PA-C, on FridayJuly 27 at 12:00 pm. *The office is located at [address] [place] [address] in [place]. If you need to change this appointment, call the office at [phone].) LAITH WICK [Primary Care Provider] - Diet: Carb Consistent or DM2 Addtl Provider Instructions: 58-year-old female with DM, A. fib, hypothyroid, RLS, on dialysis for ESRD transferred to [facility] for right hand infection now on Daptomycin previously on Vancomycin and linezolid at OSH and previously failed imipenem cilastin therapy. Orthopaedic surgery performed operative debridement 07/04/2019, 4th finger amputation on 07/09. The following is the medical management during stay here: Acute right hand infection - MRI results highly suspicious for osteomyelitis of the 4th metacarpal base, concern for septic arthritis, concern for infection of the tenosynovitis of the flexor tendon of the 4th digit - wound cultures grew MRSA from 07/01/2019 - no indications for vascular surgical intervention - Continue on Daptomycin 450 mg IV Q48h. Last dose given day of d/c, 07/13. -D/C'd ciprofloxacin per ID; not concerned about pseudomonas . Per ID will need six weeks of IV antibiotics daptomycin moving forward q 48 hour dosing. We placed a PICC in L arm to administer this. -Pt will need weekly cbc, cmp, esr, cpk while on abx -07/09: S/P right hand I&D and amputation 4th finger. Will f/u at [facility] with Dr. Colon on 07/27 -Pain: PO Houghton 5/325 mg q4h prn ESRD - Access US performed on arrival indicates patent BPG and patent AVF - HD TTS as scheduled per nephrology Diabetes - A1C 6.0 (07/02) - BSG managed with SSI here A. fib w/ history of CVA Discussed with pharmacology the potential interaction between Warfarin and antibiotic, but given the interaction is not a true drug-drug interaction and the risk of not properly anticoagulating a patient with a 9.8 % per year risk of stroke was concerning, Warfarin was continued. - home dose: 3 mg Warfarin w/ INR of 1.1 on arrival w/ goal INR 2-3. INR 2.7 on day of d/c -Moving forward cont on 3 mg so we do not overshoot and make patient supertherapeutic - Recheck INR daily, even on d/c Hypothyroid Continue home synthroid 250 mg RLS - continue Pramipexole .5 mg QHS SPECIAL CARE INSTRUCTIONS: * Change dressing daily. * Some drainage onto the dressing may occur. This is normal. * If the bandage feels excessively tight, you may loosen the elastic bandage but you MUST keep the wound covered. Then call the physician's office for further instructions. * If possible, keep your hand elevated above the level of your heart for the first 2 post operative days. You may use a sling if necessary. * You should move your fingers regularly (50-100 motions per hour) unless otherwise instructed. SPECIAL PRECAUTIONS: * If you notice increased drainage, fever over 101 degrees F. or severe, unremitting pain, call your physician/office at . * You may have been prescribed pain medication. If you experience nausea and/or skin rash, discontinue this medication and contact our office for an alternative medication. FOLLOW UP VISIT: If appointment is not already scheduled: Please call [facility] [place] to make a follow-up appointment in 10 to 14 days from the day of your surgery with Dr. Colon at . Prescriptions: New daptomycin 350 mg recon soln 450 mg IV DAILY Qty: 10 RF: 0 levothyroxine 200 mcg tablet 250 mcg PO DAILY Qty: 30 RF: 0 hydrocodone-acetaminophen [Houghton] 5-325 mg tablet 1 tab PO Q4H PRN (Reason: pain) Qty: 30 RF: 0 Continued lidocaine-prilocaine 2.5-2.5 % Cream 1 applic topical DIRECTED PRN (Reason: PRIOR TO DIALYSIS) RF: 0 Selan Silver Protectant 1 applic topical BID RF: 0 polyethylene glycol 3350 17 gram Powder In Packet 17 g PO DAILY RF: 0 warfarin 3 mg Tablet 3 mg PO DAILY RF: 0 bisacodyl 10 mg Suppository 10 mg CO DAILY PRN (Reason: Constipation) RF: 0 calcium carbonate [Tums] 200 mg calcium (500 mg) Tablet,Chewable PO HS RF: 0 docusate sodium 100 mg Capsule 100 mg PO BID RF: 0 pramipexole 0.25 mg Tablet 0.25 mg PO HS RF: 0 sertraline 25 mg Tablet 37.5 mg PO DAILY RF: 0 bisacodyl 5 mg Tablet,Delayed Release (Dr/Ec) 5 mg PO RF: 0 insulin lispro 100 unit/mL Insulin Pen 7 - 9 unit SUBCUT BID RF: 0 metoprolol tartrate 25 mg Tablet 25 mg PO BID RF: 0 insulin glargine 100 unit/mL (3 mL) Insulin Pen 20 unit SUBCUT BID RF: 0 sevelamer carbonate 800 mg Tablet 800 mg PO TIDM RF: 0 cholecalciferol (vitamin D3) 2,000 unit Capsule 2,000 unit PO DAILY RF: 0 acetaminophen tablet 500 mg PO Q6 MDD 3000 PRN (Reason: Pain) RF: 0 aspirin 81 mg PO DAILY RF: 0 Stand-Alone Forms: [facility] Discharge Orders: Discharge Order (Routine); Ordered 07/13/19 Ordered By: Ehsan Duckworth Admission Data Admit Date/Time: 07/01/19 18:51 Attending Provider: Randy Reyes Admit Provider: Carie Parker Primary Care Provider: LAITH WICK Other Providers: Carie Parker ; Abraham Brandt ; Natalio Younger ; Dayton Meza ; Henrik Izaguirre ; Rob Guillen Service: Telemetry Solderer Activity Tracking Resident Involvement: Resident Care Provided Care Provided: Adult [facility]
[2019-07-13] MEDS: DAPTOmycin 450 MG in SYRINGE 0 ML IV SCH (13:57)
[2019-07-13] MEDS: WARFARIN SOD 3 MG TAB PO SCH (16:42)
--- NOTE | 2019-07-13 17:10 | Family Medicine Progress Note ---
Date of Service July 13, 2019 Assessment & Plan (1) Cellulitis of right hand: 58-year-old female with DM, A. fib, hypothyroid, RLS, on dialysis for ESRD transferred to [facility] for right hand infection now on Daptomycin previously on Vancomycin and linezolid OSH and previously failed imipenem cilastin therapy. Orthopaedic surgery performed operative debridement 07/04/2019, 4th finger amputation on 07/09. Acute right hand infection - MRI results highly suspicious for osteomyelitis of the 4th metacarpal base, concern for septic arthritis, concern for infection of the tenosynovitis of the flexor tendon of the 4th digit - wound cultures grew MRSA from 07/01/2019 - Daptomycin 450 mg IV Q48h -D/C'd ciprofloxacin per ID; not concerned about pseudomonas . Per ID will need six weeks of IV antibiotics daptomycin moving forward q 48 hour dosing. [facility] declined administering antibiotic. PICC insertion unsuccessful today. Attempting to recall [facility] to reconsider administering IV dapto after HD sessions TTS. CM to follow up. Pt declines central line. Other option is to consult vascular surgery to insert line in OR. -Will need weekly cbc, cmp, esr, cpk while on abx -07/09: S/P right hand I&D and amputation 4th finger. Will f/u at [facility] with Dr. Colon in 10-14 days -Pain: PO Hector 5/325 mg q4h prn, IV dilaudid .5 mg q4h prn ESRD - Access US performed on arrival indicates patent BPG and patent AVF. - HD TTS as scheduled per nephrology Colon Cancer Spoke with son who mentioned that patient has history of colon cancer [facility] [place] Requested records transferred over Patient requesting follow up with [facility] oncology and made Dr. Vieyra aware who recommended outpatient scheduling. Diabetes - A1C 6.0 (07/02) - on insulin sliding scale. Appreciate glycemic management consult AManny fib w/ history of CVA Discussed with pharmacology the potential interaction between Warfarin and antibiotic, but given the interaction is not a true drug-drug interaction and the risk of not properly anticoagulating a patient with a 9.8 % per year risk of stroke was concerning, Warfarin was continued. - home dose: 3 mg Warfarin w/ INR of 1.1 on arrival w/ goal INR 2-3. INR 2.7 today -Moving forward will cont on 3 mg so we do not overshoot and make patient supertherapeutic - Recheck INR daily, even on d/c Hypothyroid Continue home synthroid 250 mg RLS - continue Pramipexole .5 mg QHS FEN: dialysis diet DVT: Warfarin FULL CODE Dispo: Med-Surg. Will be d/c to [facility]. Awaiting to hear back from [facility] for reconsideration of administering IV antibiotics. CM following. If declines again, will have to consult vascular to insert line in OR. Supervising Physician Co-Signing Physician Notes I personally examined the patient and verified all niño points of history and exam, discussed case, and agree with decision making with Dr Duckworth. Really wants to get out of the hospital, difficulty obtaining any type of IV access for daptomycin. Discussed situation with PCP at [facility]. He notes that she had significant bleeding when on Coumadin, but was doing well on apixaban and would request that we switch her anticoagulation back prior to discharge Vitals noted, in general she is awake and alert no physical distress. HEENT normocephalic atraumatic mucous membranes moist. Breathing unlabored no accessory muscle use good effort. Skin shows no rashes no pallor or icterus. Right hand is dressed no tracking erythema up her arm. No new focal neuro deficits. Hand cellulitis/osteomy/septic joint/tenosynovitiscontinue daptomycin and wound care. Unfortunately right now daptomycin is not scheduled to be given during dialysis as an outpatient, but IV access is not been obtainable to continue daptomycin at [facility]. Case management is reaching out to the patient's dialysis clinic to ask them to reconsider, given that our only other viable alternative appears to be consulting surgery for more invasive vascular access, and if daptomycin is able to be given at dialysis it would be nice to forego any further invasive procedures if not necessary INR therapeutic, but given discussion with PCP at [facility], will stop Coumadin, and his INR titrate down will resume apixaban Otherwise as above Subjective 58 yo M found in bed this AM in NAD. No reported overnight events. R hand pain tolerable per pt. Denies fevers or chills. No bleeding today. No other acute concerns or complaints. Pt patiently awaiting future considerations regarding iv antibiotic administration: dialysis vs. picc vs. vascular consult. Review of Systems Review of Systems: All systems reviewed & are unremarkable except as noted in HPI & below Physical Exam Constitutional: WD/WN, vitals as above Eyes: PERRL, conjunctivae normal, anicteric sclerae Respiratory: normal respiratory effort, lungs clear to auscultation Cardiovascular: RRR, no murmur, no edema Gastrointestinal (Abdomen): normal bowel sounds, soft, nontender, no hepatosplenomegaly Musculoskeletal: Bandage C/D/I Psychiatric: A+Ox3, euthymic affect Results & Data Vital Signs (Past 12 Hours) Vital Signs Temp Pulse Pulse Pulse Resp BP BP 07/13/19 15:52 36.6 C 79 133/60 07/13/19 15:00 36.8 C 79 20 07/13/19 13:35 37.1 C 97 H 79 20 102/39 L 07/13/19 13:00 74 133/60 07/13/19 12:42 74 157/63 H 07/13/19 12:20 75 149/41 H 07/13/19 12:03 76 155/73 H 07/13/19 11:40 68 169/53 H 07/13/19 11:20 72 157/50 H 07/13/19 11:00 71 146/57 H 07/13/19 10:40 71 144/54 H 07/13/19 10:20 77 143/61 H 07/13/19 10:00 74 146/60 H 07/13/19 09:41 68 115/54 L 07/13/19 09:40 37.1 C 79 07/13/19 07:22 36.8 C 79 20 102/39 L BP Pulse Ox 07/13/19 15:52 07/13/19 15:00 102/65 95 07/13/19 13:35 129/58 L 95 07/13/19 13:00 07/13/19 12:42 07/13/19 12:20 07/13/19 12:03 07/13/19 11:40 07/13/19 11:20 07/13/19 11:00 07/13/19 10:40 07/13/19 10:20 07/13/19 10:00 07/13/19 09:41 07/13/19 09:40 07/13/19 07:22 95 Laboratory Results Laboratory Results - last 24 hr 07/12/19 07/13/19 07/13/19 20:20 05:38 05:38 WBC 8.25 RBC 3.02 L Hgb 9.2 L Hct 29.3 L MCV 97.0 MCH 30.5 MCHC 31.4 L RDW Std Deviation 57.2 H RDW Coeff of Tommy 16.1 H Plt Count 249 MPV 9.8 Immature Gran % (Auto) 0.7 Neut % (Auto) 60.1 Lymph % (Auto) 26.7 [place] % (Auto) 11.0 Eos % (Auto) 1.1 Baso % (Auto) 0.4 Immature Gran # (Auto) 0.06 H Neut # (Auto) 4.96 Lymph # (Auto) 2.20 [place] # (Auto) 0.91 H Eos # (Auto) 0.09 Baso # (Auto) 0.03 PT 25.9 H INR 2.7 H Sodium Potassium Chloride Carbon Dioxide Anion Gap BUN Creatinine Est Cr Clr Drug Dosing Est GFR ( Amer) Est GFR (Non-Af Amer) BUN/Creatinine Ratio Glucose POC Glucose 134 H Calcium 07/13/19 07/13/19 07/13/19 05:38 07:52 13:45 WBC RBC Hgb Hct MCV MCH MCHC RDW Std Deviation RDW Coeff of Tommy Plt Count MPV Immature Gran % (Auto) Neut % (Auto) Lymph % (Auto) [place] % (Auto) Eos % (Auto) Baso % (Auto) Immature Gran # (Auto) Neut # (Auto) Lymph # (Auto) [place] # (Auto) Eos # (Auto) Baso # (Auto) PT INR Sodium 138 Potassium 4.2 Chloride 104 Carbon Dioxide 26 Anion Gap 8.0 BUN 29 H Creatinine 5.76 H* D Est Cr Clr Drug Dosing 12.1 Est GFR ( Amer) 8.5 Est GFR (Non-Af Amer) 7.4 BUN/Creatinine Ratio 5.1 L Glucose 103 H POC Glucose 110 H 117 H Calcium 8.5 07/13/19 16:49 WBC RBC Hgb Hct MCV MCH MCHC RDW Std Deviation RDW Coeff of Tommy Plt Count MPV Immature Gran % (Auto) Neut % (Auto) Lymph % (Auto) [place] % (Auto) Eos % (Auto) Baso % (Auto) Immature Gran # (Auto) Neut # (Auto) Lymph # (Auto) [place] # (Auto) Eos # (Auto) Baso # (Auto) PT INR Sodium Potassium Chloride Carbon Dioxide Anion Gap BUN Creatinine Est Cr Clr Drug Dosing Est GFR ( Amer) Est GFR (Non-Af Amer) BUN/Creatinine Ratio Glucose POC Glucose 91 Calcium Medications Administered Current Inpatient Medications Hydrocodone Bitart/Acetaminophen (Hector 5/325) 1 tab PO Q4H PRN PRN Reason: Pain Stop: 07/25/19 16:10 Last Admin: 07/13/19 13:48 Dose: 1 tab Documented by: Aspirin (Ecotrin Ectab) 81 mg PO DAILY DELANEY Stop: 08/01/19 08:59 Last Admin: 07/13/19 07:35 Dose: 81 mg Documented by: Bisacodyl (Dulcolax) 10 mg NC DAILY PRN PRN Reason: Constipation Stop: 07/31/19 20:13 Bisacodyl (Dulcolax) 5 mg PO DAILY PRN PRN Reason: Constipation Stop: 07/31/19 20:13 Last Admin: 07/08/19 09:14 Dose: 5 mg Documented by: Bumetanide (Bumex) 2 mg PO DAILY DELANEY Stop: 08/01/19 08:59 Last Admin: 07/13/19 07:32 Dose: 2 mg Documented by: Dextrose (Dextrose 50%) 25 - 50 ml IV UD PRN; Protocol PRN Reason: Hypoglycemia Protocol Stop: 07/31/19 20:08 Diphenhydramine HCl (Benadryl) 25 mg IV Q4H PRN PRN Reason: Allergic Reaction Stop: 07/31/19 20:37 Last Admin: 07/06/19 01:43 Dose: 25 mg Documented by: Docusate Sodium (Colace) 100 mg PO BID DELANEY Stop: 08/08/19 20:59 Last Admin: 07/13/19 07:33 Dose: 100 mg Documented by: Epoetin Jean-Pierre (Procrit) 4,000 units IV TODAY@1000 DELANEY Stop: 07/13/19 18:00 Last Admin: 07/13/19 11:38 Dose: 4,000 units Documented by: Glucose (Dex4 Glucose) 4 - 8 tabs PO UD PRN; Protocol PRN Reason: Hypoglycemia Protocol Stop: 07/31/19 20:08 Glucose (Glucose 40%) 15 - 30 gm PO UD PRN; Protocol PRN Reason: Hypoglycemia Protocol Stop: 07/31/19 20:08 Hydromorphone HCl (Dilaudid) 0.5 mg IV Q4H PRN PRN Reason: Pain Stop: 07/18/19 22:27 Iron Sucrose 100 mg/ Syringe 5 mls @ 1 mls/min IV TODAY@1000 DELANEY Stop: 07/13/19 18:00 Last Admin: 07/13/19 12:01 Dose: 1 mls/min Documented by: Daptomycin 450 mg/ Syringe 9 mls @ 0 mls/min IV Q48H DELANEY; Protocol Stop: 08/24/19 11:59 Last Admin: 07/13/19 13:57 Dose: 9 mls/min Documented by: Insulin Aspart (Novolog Flexpen) 0 units SC ACHS [facility]; Protocol Stop: 08/01/19 07:29 Last Admin: 07/13/19 14:59 Dose: Not Given Documented by: Insulin Glargine (Lantus Solostar Pen) [facility]; Protocol Stop: 08/10/19 08:59 Last Admin: 07/13/19 08:43 Dose: 11 units Documented by: Levothyroxine Sodium (Synthroid) 250 mcg PO DAILYBB [facility] Stop: 08/01/19 06:29 Last Admin: 07/13/19 06:30 Dose: 250 mcg Documented by: Lidocaine/Prilocaine (Emla 2.5%) 1 ea EXT DAILY PRN PRN Reason: PRIOR TO DIALYSIS Stop: 07/31/19 20:13 Metoprolol Tartrate (Lopressor) 25 mg PO BID [facility] Stop: 07/31/19 20:59 Last Admin: 07/13/19 07:34 Dose: 25 mg Documented by: Miscellaneous (Carbohydrates For Hypoglycemia) 15 - 30 gm PO UD PRN PRN Reason: Hypoglycemia Treatment Stop: 07/31/19 20:08 Miscellaneous Information (Consult Glycemic Management Pharmacy) 1 ea N/A UD PRN; Protocol PRN Reason: Consult Stop: 07/31/19 21:14 Multi-Ingredient Cream (Hydrocerin) 1 appln EXT BID [facility] Stop: 08/01/19 20:59 Last Admin: 07/13/19 08:34 Dose: Not Given Documented by: Polyethylene Glycol (Miralax Powder Packet) 17 gm PO DAILY DELANEY Stop: 08/09/19 08:59 Last Admin: 07/13/19 07:31 Dose: 17 gm Documented by: Pramipexole Dihydrochloride (Mirapex) 0.25 mg PO HS DELANEY Stop: 07/31/19 20:59 Last Admin: 07/12/19 20:04 Dose: 0.25 mg Documented by: Sennosides (Senokot) 8.6 mg PO HS PRN PRN Reason: Constipation Stop: 07/31/19 20:13 Last Admin: 07/08/19 20:51 Dose: 8.6 mg Documented by: Sevelamer HCl (Renagel) 800 mg PO TIDM DELANEY Stop: 08/01/19 07:59 Last Admin: 07/13/19 16:40 Dose: 800 mg Documented by: Vitamin B Complex/Folic Acid (Nephrocaps) 1 cap PO QAM DELANEY Stop: 08/02/19 10:59 Last Admin: 07/13/19 07:35 Dose: 1 cap Documented by: Vitamin D (Vitamin D3) 2,000 units PO DAILY DELANEY Stop: 08/09/19 08:59 Last Admin: 07/13/19 07:34 Dose: 2,000 units Documented by: PG Care Time/CCT Total # of Minutes Spent Total Time Spent with Patient: Total time spent is greater than 50% in coordi nation of care (as documented) at patient's floor/unit and/or counseling patient: Resident Activity Tracking Resident Involvement: Resident Care Provided Care Provided: Adult Hospital Medicine
[2019-07-13] MEDS: PRAMIPEXOLE DIHYDROCHLO 0.25 MG TAB PO SCH (21:23)
[2019-07-14] MEDS: HYDROCODONE/ACETAMOPHEN 5/325MG TAB PO PRN ×3 (03:39→17:42)
[2019-07-14] MEDS: LEVOTHYROXINE SODIUM 125 MCG TABLET PO SCH (06:15)
[2019-07-14] MEDS: BUMETANIDE 1 MG TAB PO SCH (07:55)
[2019-07-14] MEDS: POLYETHYLENE (MIRALAX) 17 GM PACK PO SCH (07:55)
[2019-07-14] MEDS: NEPHROCAPS PO SCH (07:56)
[2019-07-14] MEDS: ASPIRIN 81 MG ECTAB PO SCH (07:56)
[2019-07-14] MEDS: CHOLECALCIFEROL 1,000 UNITS TAB PO SCH (07:57)
[2019-07-14] MEDS: SEVELAMER HCL 800 MG TABLET PO SCH ×3 (07:57→17:42)
[2019-07-14] MEDS: DOCUSATE SODIUM 100 MG CAP PO SCH ×2 (07:57→21:23)
[2019-07-14] MEDS: METOPROLOL TARTRATE 25 MG TAB PO SCH ×2 (07:58→21:20)
[2019-07-14] MEDS: EUCERIN CR 120 GM JAR EXT SCH ×2 (07:58→21:22)
[2019-07-14] MEDS: INSULIN GLARGINE SOLOSTAR 100 UNITS/ML 3 ML PEN SC SCH (07:59)
[2019-07-14] MEDS: INSULIN ASPART 100 UNITS/ML 3 ML PEN SC SCH ×4 (08:01→21:21)
[2019-07-14 08:04] LABS: Basophils # (auto) 0.04 K/uL (0-0.2); Basophils % (auto) 0.6 %; Eosinophils # (auto) 0.08 K/uL (0-0.5); Eosinophils % (auto) 1.3 %; Hematocrit (blood only) 31.2 % (37-47); Hemoglobin 9.9 g/dL (12.0-16.0); Immature Granulocytes # (auto) 0.04 K/uL (0.00-0.02); Immature Granulocytes % (auto) 0.6 %; Lymphocytes # (auto) 2.28 K/uL (1.2-3.4); Lymphocytes % (auto) 35.8 %; Mean Corpuscular Hgb Conc 31.7 g/dL (32-36); Mean Corpuscular Volume 97.2 fL (80-100); Mean Platelet Volume 9.8 fL (7.4-10.4); Monocytes # (auto) 0.78 K/uL (0.11-0.59); Monocytes % (auto) 12.3 %; Neutrophils # (auto) 3.14 K/uL (1.4-6.5); Neutrophils % (auto) 49.4 %; Platelet Count 265 K/uL (130-400); RDW Coefficient of Variation 16.2 % (11.5-14.5); RDW Standard Deviation 57.3 fL (36.4-46.3); Red Blood Count 3.21 M/uL (4.2-5.4); White Blood Count 6.36 K/uL (4.8-10.8)
[2019-07-14 08:13] LABS: INR 1.8 (0.9-1.1)
[2019-07-14 08:28] LABS: BUN Creatinine Ratio 4.1 (10-20); Calcium 8.3 mg/dl (8.5-10.1); Creatinine Clr Calc Pharmacy 15.6 ml/min; Est GFR (Non-African American) 10.3; Potassium 4.4 mmol/L (3.5-5.1)
--- NOTE | 2019-07-14 09:51 | Pharmacy Report ---
Pharmacy Glycemic Short Note 2 - Date of Service July 14, 2019 - Glycemic Short BSG Results (Last 24 hours): 07/13/19 07/13/19 07/13/19 13:45 16:49 21:04 Glucose POC Glucose 117 H 91 85 07/14/19 07/14/19 07:35 07:48 Glucose 111 H POC Glucose 102 H ASSESSMENT: * BSGs over the previous 24hrs mostly euglycemic. PO intake has remained consistent. Clinical status continues to improve. Will continue with standing insulin orders. PLAN FOR INPATIENT GLYCEMIC CONTROL: * Basal insulin * Lantus 11u QAM * Bolus insulin * NovoLog per scale ACHS or Q6hrs while NPO * Goal Range: Low 110 mg/dL - High 140 mg/dL * Correction Factor: 25 mg/dL/unit * Nutritional / Prandial insulin per carb ratio of 1 unit per 8 grams CHO consumed
--- NOTE | 2019-07-14 09:56 | Nephrology Progress Note ---
Date of Service July 14, 2019 Assessment & Plan (1) End-stage renal disease on hemodialysis: 58 yo F with ESRD on HD TTS. Admitted with rt hand ischemic ulcer. Rx IV Daptomycin. Debridement on 07/04/2019 and 07/09/19. HD TTS schedule. Continue outpatient Rx at [place] upon discharge. Epogen and Venofer provided with dialysis during admission for anemia. (2) Ischemic ulcer: Daptomycin to be continued at discharge. Logistics of antibiotic complicating discharge. Case management to discuss possibility of providing antibiotic at dialysis facility post discharge due to limited options for access. (3) Hypertension: BP acceptable. (4) Atrial fibrillation: Anticoagulated with warfarin. (5) Diabetes mellitus, type 2: Subjective Tolerated HD well yesterday. Net UF 2L. Breathing comfortably. Hopeful for discharge home today. Review of Systems Review of Systems: All systems reviewed & are unremarkable except as noted in HPI & below Physical Exam Constitutional: + obese; no acute distress Eyes: no scleral abnormality and no corneal abnormality ENMT: Ears: + hearing impairment Mouth: no oral mucosal abnormality and oral mucous membranes not dry Neck: normal visual inspection and trachea midline Respiratory: normal respiratory effort Auscultation: lungs clear to auscultation bilaterally Cardiovascular: Rate/Rhythm: regular rate Heart Sounds: normal S1, normal S2 and + murmur Extremities: + AV fistula Musculoskeletal: Extremities: no cyanosis and no clubbing Skin: normal turgor; no lesions Neurologic: Motor/Sensory: no tremor and no asterixis Psychiatric: Orientation: alert and oriented x 3 Results & Data Vital Signs (Past 12 Hours) Vital Signs Temp Pulse Pulse Resp BP Pulse Ox 07/14/19 07:32 86 07/14/19 07:26 36.7 C 87 20 99/40 L 99 07/14/19 04:00 36.9 C 86 18 105/62 95 07/14/19 00:00 83 07/13/19 23:00 36.7 C 80 20 91/47 L 96 Laboratory Results Laboratory Results - last 24 hr 07/13/19 07/13/19 07/13/19 13:45 16:49 21:04 WBC RBC Hgb Hct MCV MCH MCHC RDW Std Deviation RDW Coeff of Tommy Plt Count MPV Immature Gran % (Auto) Neut % (Auto) Lymph % (Auto) [place] % (Auto) Eos % (Auto) Baso % (Auto) Immature Gran # (Auto) Neut # (Auto) Lymph # (Auto) [place] # (Auto) Eos # (Auto) Baso # (Auto) PT INR Sodium Potassium Chloride Carbon Dioxide Anion Gap BUN Creatinine Est Cr Clr Drug Dosing Est GFR ( Amer) Est GFR (Non-Af Amer) BUN/Creatinine Ratio Glucose POC Glucose 117 H 91 85 Calcium 07/14/19 07/14/19 07/14/19 07:35 07:35 07:35 WBC 6.36 RBC 3.21 L Hgb 9.9 L Hct 31.2 L MCV 97.2 MCH 30.8 MCHC 31.7 L RDW Std Deviation 57.3 H RDW Coeff of Tommy 16.2 H Plt Count 265 MPV 9.8 Immature Gran % (Auto) 0.6 Neut % (Auto) 49.4 Lymph % (Auto) 35.8 [place] % (Auto) 12.3 Eos % (Auto) 1.3 Baso % (Auto) 0.6 Immature Gran # (Auto) 0.04 H Neut # (Auto) 3.14 Lymph # (Auto) 2.28 [place] # (Auto) 0.78 H Eos # (Auto) 0.08 Baso # (Auto) 0.04 PT 18.0 H INR 1.8 H Sodium 136 Potassium 4.4 Chloride 103 Carbon Dioxide 26 Anion Gap 7.0 BUN 18 Creatinine 4.35 H D Est Cr Clr Drug Dosing 15.6 Est GFR ( Amer) 12.0 Est GFR (Non-Af Amer) 10.3 BUN/Creatinine Ratio 4.1 L Glucose 111 H POC Glucose Calcium 8.3 L 07/14/19 07:48 WBC RBC Hgb Hct MCV MCH MCHC RDW Std Deviation RDW Coeff of Tommy Plt Count MPV Immature Gran % (Auto) Neut % (Auto) Lymph % (Auto) [place] % (Auto) Eos % (Auto) Baso % (Auto) Immature Gran # (Auto) Neut # (Auto) Lymph # (Auto) [place] # (Auto) Eos # (Auto) Baso # (Auto) PT INR Sodium Potassium Chloride Carbon Dioxide Anion Gap BUN Creatinine Est Cr Clr Drug Dosing Est GFR ( Amer) Est GFR (Non-Af Amer) BUN/Creatinine Ratio Glucose POC Glucose 102 H Calcium PG Care Time/CCT Total # of Minutes Spent Total Time Spent with Patient: Total time spent is greater than 50% in coordination of care (as documented) at patient's floor/unit and/or counseling patient:
--- NOTE | 2019-07-14 14:37 | Surgery Progress Note ---
Date of Service July 14, 2019 Assessment & Plan (1) Osteomyelitis of hand, right, acute: Discussed case with primary service this morning regarding venous access for IV antibiotics. General surgery would prefer not to place A-port at this time. Patient has A-V fistula and is known to Dr. Meza. He may have other recommendations for access if antibiotics cannot be coordinated with dialysis. Results & Data Vital Signs (Past 12 Hours) Vital Signs Temp Pulse Pulse Resp BP BP Pulse Ox 07/14/19 11:23 36.7 C 86 18 126/68 99 07/14/19 07:32 86 07/14/19 07:26 36.7 C 87 20 99/40 L 99 07/14/19 04:00 36.9 C 86 18 105/62 95 PG Care Time/CCT Total # of Minutes Spent Total Time Spent with Patient: Total time spent is greater than 50% in coordination of care (as documented) at patient's floor/unit and/or counseling patient:
--- NOTE | 2019-07-14 16:36 | Family Medicine Progress Note ---
Date of Service July 14, 2019 Assessment & Plan (1) Cellulitis of right hand: 58-year-old female with DM, A. fib, hypothyroid, RLS, on dialysis for ESRD transferred to [facility] for right hand infection now on Daptomycin previously on Vancomycin and linezolid OSH and previously failed imipenem cilastin therapy. Orthopaedic surgery performed operative debridement 07/04/2019, 4th finger amputation on 07/09. Acute right hand infection - MRI results highly suspicious for osteomyelitis of the 4th metacarpal base, concern for septic arthritis, concern for infection of the tenosynovitis of the flexor tendon of the 4th digit - wound cultures grew MRSA from 07/01/2019 - Daptomycin 450 mg IV Q48h -D/C'd ciprofloxacin per ID; not concerned about pseudomonas . Per ID will need six weeks of IV antibiotics daptomycin moving forward q 48 hour dosing. [facility] has agreed to administering IV dapto after HD sessions TTS. Will likely get approval/shipments/etc until this weekend, so pt will stay here until Friday. CM to follow up. -Will need weekly cbc, cmp, esr, cpk while on abx -07/09: S/P right hand I&D and amputation 4th finger. [facility] f[facility]u [facility] Dr. Colon in 10-14 days -Pain: PO [place] 5/325 mg q4h prn, IV dilaudid .5 mg q4h prn ESRD - Access US performed on arrival indicates patent BPG and patent AVF. - HD TTS as scheduled per nephrology Colon Cancer Spoke with son who mentioned that patient has history of colon cancer [facility] [place] Requested records transferred over Patient requesting follow up with [facility] oncology and made Dr. Vieyra aware who recommended outpatient scheduling. Diabetes - A1C 6.0 (07/02) - on insulin sliding scale. Appreciate glycemic management consult A. fib w/ history of CVA -Discussed with PCP and found that pt had significant bleeding when on Coumadin, but was doing well on apixaban and requested that we switch her anticoagulation back prior to discharge -apixaban 2.5 BID Hypothyroid Continue home synthroid 250 mg RLS - continue Pramipexole .5 mg QHS FEN: dialysis diet DVT: Apixiban FULL CODE Dispo: Med-Surg. Coordinating with [facility] for IV Dapto TTS. CM following. Likely d/c on Friday after arrangements made Supervising Physician Co-Signing Physician Notes I personally examined the patient and verified all niño points of history and exam, discussed case, and agree with decision making with Dr Duckworth. still working on how to administer abx after discharge. no new complaints. still would very much like to get out of hospital Vitals noted, in general she is awake and alert no physical distress. HEENT normocephalic atraumatic mucous membranes moist. Breathing unlabored no accessory muscle use good effort. Skin shows no rashes no pallor or icterus. Right hand is dressed no tracking erythema up her arm. No new focal neuro deficits. Hand cellulitis/osteomy/septic joint/tenosynovitiscontinue daptomycin and wound care. continue to work on how to admin abx as outpt. otherwise stable INR therapeutic, but given discussion with [facility]CP at [facility], changing back to apixiban due to prior severe bleed on coumadin Otherwise as above Subjective 58 yo M found in bed this AM in NAD. No reported overnight events. R hand pain tolerable per pt. Denies fevers or chills. No bleeding today. No other acute concerns or complaints. Pt made aware that dialysis has agreed to admin iv an tibiotics, but will likely get approval/shipments until weekend. Review of Systems Review of Systems: All systems reviewed & are unremarkable except as noted in HPI & below Physical Exam Constitutional: WD/WN, vitals as above Eyes: PERRL, conjunctivae normal, anicteric sclerae Neck: trachea midline, no thyromegaly Respiratory: normal respiratory effort, lungs clear to auscultation Cardiovascular: RRR, no murmur, no edema Gastrointestinal (Abdomen): normal bowel sounds, soft, nontender, no he patosplenomegaly Musculoskeletal: R hand bandaged, C/D/I Psychiatric: A+Ox3, euthymic affect Results & Data Vital Signs (Past 12 Hours) Vital Signs Temp Pulse Pulse Resp BP BP Pulse Ox 07/14/19 16:07 85 07/14/19 15:19 36.7 C 82 18 114/68 98 07/14/19 11:23 36.7 C 86 18 126/68 99 07/14/19 07:32 86 07/14/19 07:26 36.7 C 87 20 99/40 L 99 Laboratory Results Laboratory Results - last 24 hr 07/13/19 07/13/19 07/14/19 16:49 21:04 07:35 WBC 6.36 RBC 3.21 L Hgb 9.9 L Hct 31.2 L MCV 97.2 MCH 30.8 MCHC 31.7 L RDW Std Deviation 57.3 H RDW Coeff of Tommy 16.2 H Plt Count 265 MPV 9.8 Immature Gran % (Auto) 0.6 Neut % (Auto) 49.4 Lymph % (Auto) 35.8 [place] % (Auto) 12.3 Eos % (Auto) 1.3 Baso % (Auto) 0.6 Immature Gran # (Auto) 0.04 H Neut # (Auto) 3.14 Lymph # (Auto) 2.28 [place] # (Auto) 0.78 H Eos # (Auto) 0.08 Baso # (Auto) 0.04 PT INR Sodium Potassium Chloride Carbon Dioxide Anion Gap BUN Creatinine Est Cr Clr Drug Dosing Est GFR ( Amer) Est GFR (Non-Af Amer) BUN/Creatinine Ratio Glucose POC Glucose 91 85 Calcium 07/14/19 07/14/19 07/14/19 07:35 07:35 07:48 WBC RBC Hgb Hct MCV MCH MCHC RDW Std Deviation RDW Coeff of Tommy Plt Count MPV Immature Gran % (Auto) Neut % (Auto) Lymph % (Auto) [place] % (Auto) Eos % (Auto) Baso % (Auto) Immature Gran # (Auto) Neut # (Auto) Lymph # (Auto) [place] # (Auto) Eos # (Auto) Baso # (Auto) PT 18.0 H INR 1.8 H Sodium 136 Potassium 4.4 Chloride 103 Carbon Dioxide 26 Anion Gap 7.0 BUN 18 Creatinine 4.35 H D Est Cr Clr Drug Dosing 15.6 Est GFR ( Amer) 12.0 Est GFR (Non-Af Amer) 10.3 BUN/Creatinine Ratio 4.1 L Glucose 111 H POC Glucose 102 H Calcium 8.3 L 07/14/19 11:46 WBC RBC Hgb Hct MCV MCH MCHC RDW Std Deviation RDW Coeff of Tommy Plt Count MPV Immature Gran % (Auto) Neut % (Auto) Lymph % (Auto) [place] % (Auto) Eos % (Auto) Baso % (Auto) Immature Gran # (Auto) Neut # (Auto) Lymph # (Auto) [place] # (Auto) Eos # (Auto) Baso # (Auto) PT INR Sodium Potassium Chloride Carbon Dioxide Anion Gap BUN Creatinine Est Cr Clr Drug Dosing Est GFR ( Amer) Est GFR (Non-Af Amer) BUN/Creatinine Ratio Glucose POC Glucose 212 H Calcium Medications Administered Current Inpatient Medications Hydrocodone Bitart/Acetaminophen ([place] 5/325) 1 tab PO Q4H PRN PRN Reason: Pain Stop: 07/25/19 16:10 Last Admin: 07/14/19 12:25 Dose: 1 tab Documented by: Apixaban (Eliquis) 2.5 mg PO BID [facility] Stop: 08/13/19 20:59 Aspirin (Ecotrin Ectab) 81 mg PO DAILY [facility] Stop: 08/01/19 08:59 Last Admin: 07/14/19 07:56 Dose: 81 mg Documented by: Bisacodyl (Dulcolax) 10 mg OR DAILY PRN PRN Reason: Constipation Stop: 07/31/19 20:13 Bisacodyl (Dulcolax) 5 mg PO DAILY PRN PRN Reason: Constipation Stop: 07/31/19 20:13 Last Admin: 07/08/19 09:14 Dose: 5 mg Documented by: Bumetanide (Bumex) 2 mg PO DAILY [facility] Stop: 08/01/19 08:59 Last Admin: 07/14/19 07:55 Dose: 2 mg Documented by: Dextrose (Dextrose 50%) 25 - 50 ml IV UD PRN; Protocol PRN Reason: Hypoglycemia Protocol Stop: 07/31/19 20:08 Diphenhydramine HCl (Benadryl) 25 mg IV Q4H PRN PRN Reason: Allergic Reaction Stop: 07/31/19 20:37 Last Admin: 07/06/19 01:43 Dose: 25 mg Documented by: Docusate Sodium (Colace) 100 mg PO BID [facility] Stop: 08/08/19 20:59 Last Admin: 07/14/19 07:57 Dose: 100 mg Documented by: Glucose (Dex4 Glucose) 4 - 8 tabs PO UD PRN; Protocol PRN Reason: Hypoglycemia Protocol Stop: 07/31/19 20:08 Glucose (Glucose 40%) 15 - 30 gm PO UD PRN; Protocol PRN Reason: Hypoglycemia Protocol Stop: 07/31/19 20:08 Hydromorphone HCl (Dilaudid) 0.5 mg IV Q4H PRN PRN Reason: Pain Stop: 07/18/19 22:27 Daptomycin 450 mg/ Syringe 9 mls @ 0 mls/min IV Q48H [facility]; Protocol Stop: 08/24/19 11:59 Last Admin: 07/13/19 13:57 Dose: 9 mls/min Documented by: Insulin Aspart (Novolog Flexpen) 0 units SC ACHS [facility]; Protocol Stop: 08/01/19 07:29 Last Admin: 07/14/19 12:20 Dose: 5 units Documented by: Insulin Glargine (Lantus Solostar Pen) 11 units SC QAM [facility]; Protocol Stop: 08/10/19 08:59 Last Admin: 07/14/19 07:59 Dose: 11 units Documented by: Levothyroxine Sodium (Synthroid) 250 mcg PO DAILYBB [facility] Stop: 08/01/19 06:29 Last Admin: 07/14/19 06:15 Dose: 250 mcg Documented by: Lidocaine/Prilocaine (Emla 2.5%) 1 ea EXT DAILY PRN PRN Reason: PRIOR TO DIALYSIS Stop: 07/31/19 20:13 Metoprolol Tartrate (Lopressor) 25 mg PO BID [facility] Stop: 07/31/19 20:59 Last Admin: 07/14/19 07:58 Dose: Not Given Documented by: Miscellaneous (Carbohydrates For Hypoglycemia) 15 - 30 gm PO UD PRN PRN Reason: Hypoglycemia Treatment Stop: 07/31/19 20:08 Miscellaneous Information (Consult Glycemic Management Pharmacy) 1 ea N/A UD PRN; Protocol PRN Reason: Consult Stop: 07/31/19 21:14 Multi-Ingredient Cream (Hydrocerin) 1 appln EXT BID [facility] Stop: 08/01/19 20:59 Last Admin: 07/14/19 07:58 Dose: 1 appln Documented by: Polyethylene Glycol (Miralax Powder Packet) 17 gm PO DAILY [facility] Stop: 08/09/19 08:59 Last Admin: 07/14/19 07:55 Dose: 17 gm Documented by: Pramipexole Dihydrochloride (Mirapex) 0.25 mg PO HS [facility] Stop: 07/31/19 20:59 Last Admin: 07/13/19 21:23 Dose: 0.25 mg Documented by: Sennosides (Senokot) 8.6 mg PO HS PRN PRN Reason: Constipation Stop: 07/31/19 20:13 Last Admin: 07/08/19 20:51 Dose: 8.6 mg Documented by: Sevelamer HCl (Renagel) 800 mg PO TIDM [facility] Stop: 08/01/19 07:59 Last Admin: 07/14/19 12:19 Dose: 800 mg Documented by: Vitamin B Complex/Folic Acid (Nephrocaps) 1 cap PO QAM [facility] Stop: 08/02/19 10:59 Last Admin: 07/14/19 07:56 Dose: 1 cap Documented by: Vitamin D (Vitamin D3) 2,000 units PO DAILY [facility] Stop: 08/09/19 08:59 Last Admin: 07/14/19 07:57 Dose: 2,000 units Documented by: PG Care Time/CCT Total # of Minutes Spent Total Time Spent with Patient: Total time spent is greater than 50% in coordination of care (as documented) at patient's floor/unit and/or counseling patient: Resident Activity Tracking Resident Involvement: Resident Care Provided Care Provided: Adult Hospital Medicine
[2019-07-14] MEDS ORDERED: RIVAROXABAN 2.5 MG TAB PO SCH (21:00)
[2019-07-14] MEDS: ONDANSETRON INJ 2 MG/ML 2 ML VIAL IV PRN (21:18)
[2019-07-14] MEDS: APIXABAN 2.5 MG TAB PO SCH (21:20)
[2019-07-14] MEDS: PRAMIPEXOLE DIHYDROCHLO 0.25 MG TAB PO SCH (21:22)
[2019-07-15] MEDS: DiphenhydrAMINE HCL 50 MG/ML VIAL IV PRN (01:16)
[2019-07-15] MEDS: LEVOTHYROXINE SODIUM 125 MCG TABLET PO SCH (05:45)
[2019-07-15] MEDS ORDERED: SODIUM CHLORIDE 0.9% 1000ML 1,000 ML IV PRN (07:00)
[2019-07-15 07:35] LABS: Basophils # (auto) 0.04 K/uL (0-0.2); Basophils % (auto) 0.6 %; Eosinophils # (auto) 0.07 K/uL (0-0.5); Hematocrit (blood only) 30.3 % (37-47); Hemoglobin 9.6 g/dL (12.0-16.0); Immature Granulocytes # (auto) 0.04 K/uL (0.00-0.02); Immature Granulocytes % (auto) 0.6 %; Lymphocytes # (auto) 2.38 K/uL (1.2-3.4); Lymphocytes % (auto) 34.6 %; Mean Corpuscular Hgb Conc 31.7 g/dL (32-36); Mean Corpuscular Volume 96.2 fL (80-100); Mean Platelet Volume 9.9 fL (7.4-10.4); Monocytes % (auto) 13.1 %; Neutrophils # (auto) 3.44 K/uL (1.4-6.5); Neutrophils % (auto) 50.1 %; Platelet Count 274 K/uL (130-400); RDW Coefficient of Variation 16.2 % (11.5-14.5); RDW Standard Deviation 56.2 fL (36.4-46.3); Red Blood Count 3.15 M/uL (4.2-5.4); White Blood Count 6.87 K/uL (4.8-10.8)
[2019-07-15 07:43] LABS: INR 1.5 (0.9-1.1); Prothrombin Time 15.1 Seconds (9.0-12.0)
[2019-07-15] MEDS: INSULIN ASPART 100 UNITS/ML 3 ML PEN SC SCH ×4 (08:18→21:20)
[2019-07-15] MEDS: SEVELAMER HCL 800 MG TABLET PO SCH ×3 (08:20→17:32)
[2019-07-15] MEDS: DOCUSATE SODIUM 100 MG CAP PO SCH ×2 (08:20→21:27)
[2019-07-15] MEDS: BUMETANIDE 1 MG TAB PO SCH (08:20)
[2019-07-15] MEDS: APIXABAN 2.5 MG TAB PO SCH ×2 (08:21→21:28)
[2019-07-15] MEDS: ASPIRIN 81 MG ECTAB PO SCH (08:21)
[2019-07-15] MEDS: INSULIN GLARGINE SOLOSTAR 100 UNITS/ML 3 ML PEN SC SCH (08:22)
[2019-07-15] MEDS: METOPROLOL TARTRATE 25 MG TAB PO SCH ×3 (08:22→21:28)
[2019-07-15] MEDS: POLYETHYLENE (MIRALAX) 17 GM PACK PO SCH (08:22)
[2019-07-15] MEDS: NEPHROCAPS PO SCH (08:23)
[2019-07-15] MEDS: CHOLECALCIFEROL 1,000 UNITS TAB PO SCH (08:24)
[2019-07-15] MEDS: EUCERIN CR 120 GM JAR EXT SCH ×2 (08:24→21:30)
[2019-07-15 08:29] LABS: BUN Creatinine Ratio 4.6 (10-20); Calcium 8.6 mg/dl (8.5-10.1); Creatinine Clr Calc Pharmacy 12.5 ml/min; Est GFR (African American) 9.1; Est GFR (Non-African American) 7.9; Potassium 4.4 mmol/L (3.5-5.1)
[2019-07-15] MEDS: HYDROCODONE/ACETAMOPHEN 5/325MG TAB PO PRN ×2 (08:36→13:31)
--- NOTE | 2019-07-15 11:39 | Family Medicine Progress Note ---
Date of Service July 15, 2019 Assessment & Plan (1) Cellulitis of right hand: 58-year-old female with DM, A. fib, hypothyroid, RLS, on dialysis for ESRD transferred to [facility] for right hand infection now on Daptomycin previously on Vancomycin and linezolid OSH and previously failed imipenem cilastin therapy. Orthopaedic surgery performed operative debridement 07/04/2019, 4th finger amputation on 07/09. Acute right hand infection - MRI results highly suspicious for osteomyelitis of the 4th metacarpal base, concern for septic arthritis, concern for infection of the tenosynovitis of the flexor tendon of the 4th digit - wound cultures grew MRSA from 07/01/2019 - Daptomycin 450 mg IV Q48h -D/C'd ciprofloxacin per ID; not concerned about pseudomonas . Per ID will need six weeks of IV antibiotics daptomycin moving forward q 48 hour dosing. [facility] has agreed to administering IV dapto after HD sessions TTS. Will likely get approval/shipments/etc until this weekend, so pt will stay here until Friday. CM to follow up. -Will need weekly cbc, cmp, esr, cpk while on abx -07/09: S/P right hand I&D and amputation 4th finger. [facility] f[facility] Colon in 10-14 days -Pain: PO [place] 5/325 mg q4h prn, IV dilaudid .5 mg q4h prn ESRD - Access US performed on arrival indicates patent BPG and patent AVF. - HD TTS as scheduled per nephrology Colon Cancer Spoke with son who mentioned that patient has history of colon cancer diagnosed [facility] [place] Requested records transferred over Patient requesting follow up with [facility] oncology and made Dr. Vieyra aware who recommended outpatient scheduling. Diabetes - A1C 6.0 (07/02) - on insulin sliding scale. Appreciate glycemic management consult A. fib w/ history of CVA -Discussed with PCP and found that pt had significant bleeding when on Coumadin, but was doing well on apixaban and requested that we switch her anticoagulation back prior to discharge -apixaban 2.5 BID Hypothyroid Continue home synthroid 250 mg RLS - continue Pramipexole .5 mg QHS FEN: dialysis diet DVT: Apixiban FULL CODE Dispo: Med-Surg. Coordinating with [facility] for IV Dapto TTS. CM following. Likely d/c tomorrow after arrangements made Supervising Physician Co-Signing Physician Notes I personally examined the patient and verified all niño points of history and exam, discussed case, and agree with decision making with Dr Duckworth. Main complaint is missing her children. Vitals noted, in general she is awake and alert no physical distress. HEENT normocephalic atraumatic mucous membranes moist. Breathing unlabored no accessory muscle use good effort. Skin shows no rashes no pallor or icterus. Right hand is dressed no tracking erythema up her arm. No new focal neuro deficits. Hand cellulitis/osteomy/septic joint/tenosynovitiscontinue daptomycin and wound care. Anticipate ability to discharge tomorrow with outpatient dosing after dialysis. INR therapeutic, but given discussion with PCP at [facility], changed back to apixiban due to prior severe bleed on coumadin Otherwise as above Subjective 58 yo M found in bed this AM in NAD. No reported overnight events. R hand pain tolerable per pt. Denies fevers or chills. No bleeding today. No other acute concerns or complaints. Pt made aware that dialysis has agreed to admin iv antibiotics, but will likely get approval/shipments until weekend. Anticipate d/c tomorrow. Review of Systems Review of Systems: All systems reviewed & are unremarkable except as noted in HPI & below Physical Exam Constitutional: WD/WN, vitals as above Eyes: PERRL, conjunctivae normal, anicteric sclerae Respiratory: normal respiratory effort, lungs clear to auscultation Cardiovascular: RRR, no murmur, no edema Gastrointestinal (Abdomen): normal bowel sounds, soft, nontender, no hepatosplenomegaly Musculoskeletal: R hand bandaged, C/D/I Psychiatric: A+Ox3, euthymic affect Results & Data Vital Signs (Past 12 Hours) Vital Signs Temp Pulse Pulse Resp BP BP Pulse Ox 07/15/19 10:40 80 140/44 L 07/15/19 10:20 81 144/55 H 07/15/19 10:00 82 150/64 H 07/15/19 09:40 76 152/62 H 07/15/19 09:20 81 149/69 H 07/15/19 09:08 79 134/61 07/15/19 08:57 36.5 C 80 07/15/19 03:50 36.8 C 89 18 101/51 L 94 07/15/19 00:13 83 Laboratory Results Laboratory Results - last 24 hr 07/14/19 07/14/19 07/14/19 11:46 16:56 20:12 WBC RBC Hgb Hct MCV MCH MCHC RDW Std Deviation RDW Coeff of Tommy Plt Count MPV Immature Gran % (Auto) Neut % (Auto) Lymph % (Auto) [place] % (Auto) Eos % (Auto) Baso % (Auto) Immature Gran # (Auto) Neut # (Auto) Lymph # (Auto) [place] # (Auto) Eos # (Auto) Baso # (Auto) PT INR Sodium Potassium Chloride Carbon Dioxide Anion Gap BUN Creatinine Est Cr Clr Drug Dosing Est GFR ( Amer) Est GFR (Non-Af Amer) BUN/Creatinine Ratio Glucose POC Glucose 212 H 117 H 149 H Calcium 07/15/19 07/15/19 07/15/19 07:15 07:15 07:15 WBC 6.87 RBC 3.15 L Hgb 9.6 L Hct 30.3 L MCV 96.2 MCH 30.5 MCHC 31.7 L RDW Std Deviation 56.2 H RDW Coeff of Tommy 16.2 H Plt Count 274 MPV 9.9 Immature Gran % (Auto) 0.6 Neut % (Auto) 50.1 Lymph % (Auto) 34.6 [place] % (Auto) 13.1 Eos % (Auto) 1.0 Baso % (Auto) 0.6 Immature Gran # (Auto) 0.04 H Neut # (Auto) 3.44 Lymph # (Auto) 2.38 [place] # (Auto) 0.90 H Eos # (Auto) 0.07 Baso # (Auto) 0.04 PT 15.1 H INR 1.5 H Sodium 136 Potassium 4.4 Chloride 102 Carbon Dioxide 27 Anion Gap 6.0 BUN 26 H Creatinine 5.44 H* D Est Cr Clr Drug Dosing 12.5 Est GFR ( Amer) 9.1 Est GFR (Non-Af Amer) 7.9 BUN/Creatinine Ratio 4.6 L Glucose 111 H POC Glucose Calcium 8.6 07/15/19 07:44 WBC RBC Hgb Hct MCV MCH MCHC RDW Std Deviation RDW Coeff of Tommy Plt Count MPV Immature Gran % (Auto) Neut % (Auto) Lymph % (Auto) [place] % (Auto) Eos % (Auto) Baso % (Auto) Immature Gran # (Auto) Neut # (Auto) Lymph # (Auto) [place] # (Auto) Eos # (Auto) Baso # (Auto) PT INR Sodium Potassium Chloride Carbon Dioxide Anion Gap BUN Creatinine Est Cr Clr Drug Dosing Est GFR ( Amer) Est GFR (Non-Af Amer) BUN/Creatinine Ratio Glucose POC Glucose 104 H Calcium Medications Administered Current Inpatient Medications Hydrocodone Bitart/Acetaminophen ([place] 5/325) 1 tab PO Q4H PRN PRN Reason: Pain Stop: 07/25/19 16:10 Last Admin: 07/15/19 08:36 Dose: 1 tab Documented by: Apixaban (Eliquis) 2.5 mg PO BID [facility] Stop: 08/13/19 20:59 Last Admin: 07/15/19 08:21 Dose: 2.5 mg Documented by: Aspirin (Ecotrin Ectab) 81 mg PO DAILY [facility] Stop: 08/01/19 08:59 Last Admin: 07/15/19 08:21 Dose: 81 mg Documented by: Bisacodyl (Dulcolax) 10 mg MD DAILY PRN PRN Reason: Constipation Stop: 07/31/19 20:13 Bisacodyl (Dulcolax) 5 mg PO DAILY PRN PRN Reason: Constipation Stop: 07/31/19 20:13 Last Admin: 07/08/19 09:14 Dose: 5 mg Documented by: Bumetanide (Bumex) 2 mg PO DAILY [facility] Stop: 08/01/19 08:59 Last Admin: 07/15/19 08:20 Dose: Not Given Documented by: Dextrose (Dextrose 50%) 25 - 50 ml IV UD PRN; Protocol PRN Reason: Hypoglycemia Protocol Stop: 07/31/19 20:08 Diphenhydramine HCl (Benadryl) 25 mg IV Q4H PRN PRN Reason: Allergic Reaction Stop: 07/31/19 20:37 Last Admin: 07/15/19 01:16 Dose: 25 mg Documented by: Docusate Sodium (Colace) 100 mg PO BID [facility] Stop: 08/08/19 20:59 Last Admin: 07/15/19 08:20 Dose: 100 mg Documented by: Glucose (Dex4 Glucose) 4 - 8 tabs PO UD PRN; Protocol PRN Reason: Hypoglycemia Protocol Stop: 07/31/19 20:08 Glucose (Glucose 40%) 15 - 30 gm PO UD PRN; Protocol PRN Reason: Hypoglycemia Protocol Stop: 07/31/19 20:08 Hydromorphone HCl (Dilaudid) 0.5 mg IV Q4H PRN PRN Reason: Pain Stop: 07/18/19 22:27 Daptomycin 450 mg/ Syringe 9 mls @ 0 mls/min IV Q48H [facility]; Protocol Stop: 08/24/19 11:59 Last Admin: 07/13/19 13:57 Dose: 9 mls/min Documented by: Sodium Chloride (Nss 1000ml) 1,000 mls @ 0 mls/hr IV .Q0M PRN PRN Reason: For Hemodialysis Use ONLY Stop: 07/15/19 12:59 Insulin Aspart (Novolog Flexpen) 0 units SC TID@1130,1630,2100 [facility]; Protocol Stop: 08/14/19 11:29 Insulin Aspart (Novolog Flexpen) 0 units SC DAILY@0730 [facility]; Protocol Stop: 08/14/19 07:29 Last Admin: 07/15/19 08:18 Dose: 16 units Documented by: Insulin Glargine (Lantus Solostar Pen) 11 units SC QAM [facility]; Protocol Stop: 08/10/19 08:59 Last Admin: 07/15/19 08:22 Dose: 11 units Documented by: Levothyroxine Sodium (Synthroid) 250 mcg PO DAILYBB [facility] Stop: 08/01/19 06:29 Last Admin: 07/15/19 05:45 Dose: 250 mcg Documented by: Lidocaine/Prilocaine (Emla 2.5%) 1 ea EXT DAILY PRN PRN Reason: PRIOR TO DIALYSIS Stop: 07/31/19 20:13 Metoprolol Tartrate (Lopressor) 25 mg PO BID [facility] Stop: 07/31/19 20:59 Last Admin: 07/15/19 08:36 Dose: Not Given Documented by: Miscellaneous (Carbohydrates For Hypoglycemia) 15 - 30 gm PO UD PRN PRN Reason: Hypoglycemia Treatment Stop: 07/31/19 20:08 Miscellaneous Information (Consult Glycemic Management Pharmacy) 1 ea N/A UD PRN; Protocol PRN Reason: Consult Stop: 07/31/19 21:14 Multi-Ingredient Cream (Hydrocerin) 1 appln EXT BID [facility] Stop: 08/01/19 20:59 Last Admin: 07/15/19 08:24 Dose: 1 appln Documented by: Ondansetron HCl (Zofran) 4 mg IV Q4H PRN PRN Reason: Nausea Stop: 08/13/19 20:48 Last Admin: 07/14/19 21:18 Dose: 4 mg Documented by: Polyethylene Glycol (Miralax Powder Packet) 17 gm PO DAILY [facility] Stop: 08/09/19 08:59 Last Admin: 07/15/19 08:22 Dose: 17 gm Documented by: Pramipexole Dihydrochloride (Mirapex) 0.25 mg PO HS [facility] Stop: 07/31/19 20:59 Last Admin: 07/14/19 21:22 Dose: 0.25 mg Documented by: Sennosides (Senokot) 8.6 mg PO HS PRN PRN Reason: Constipation Stop: 07/31/19 20:13 Last Admin: 07/08/19 20:51 Dose: 8.6 mg Documented by: Sevelamer HCl (Renagel) 800 mg PO TIDM [facility] Stop: 08/01/19 07:59 Last Admin: 07/15/19 08:20 Dose: 800 mg Documented by: Vitamin B Complex/Folic Acid (Nephrocaps) 1 cap PO QAM [facility] Stop: 08/02/19 10:59 Last Admin: 07/15/19 08:23 Dose: 1 cap Documented by: Vitamin D (Vitamin D3) 2,000 units PO DAILY [facility] Stop: 08/09/19 08:59 Last Admin: 07/15/19 08:24 Dose: 2,000 units Documented by: PG Care Time/CCT Total # of Minutes Spent Total Time Spent with Patient: Total time spent is greater than 50% in coordination of care (as documented) at patient's floor/unit and/or counseling patient: Resident Activity Tracking Resident Involvement: Resident Care Provided Care Provided: Adult Hospital Medicine
--- NOTE | 2019-07-15 12:01 | Dialysis Progress Note ---
Date of Service July 15, 2019 Assessment & Plan (1) End-stage renal disease on hemodialysis: 58 yo F with ESRD on HD TTS. Admitted with rt hand ischemic ulcer. Rx IV Daptomycin. Debridement on 07/04/2019 and 07/09/19. HD TTS schedule. Continue outpatient Rx at [facility] upon discharge. Epogen and Venofer provided with dialysis during admission for anemia. --currently tolerating dialysis well, goal for 2 L UF, av fistula functioning well --dose medications for GFR less than 10 --continue on renal vitamin and phosphate binder with male --okay to be discharged from nephrology standpoint, please notify dialysis unit at [facility] upon discharge Will follow Subjective One-day was seen examined during dialysis this morning. She has been tolerating dialysis, vital signs stable. Continues to have some pain in her right hand however overall otherwise feeling much better. Review of Systems Review of Systems: All systems reviewed & are unremarkable except as noted in HPI & below Physical Exam Constitutional: WD/WN, vitals as above Respiratory: normal respiratory effort, lungs clear to auscultation Cardiovascular: RRR, no murmur, no edema Musculoskeletal: Right hand in dressing, tender. Neurologic: moves all extremities and awake Psychiatric: A+Ox3, euthymic affect Results & Data Vital Signs (Past 12 Hours) Vital Signs Temp Pulse Pulse Resp BP BP Pulse Ox 07/15/19 11:40 77 108/54 L 07/15/19 11:20 68 119/60 07/15/19 11:00 81 139/43 L 07/15/19 10:40 80 140/44 L 07/15/19 10:20 81 144/55 H 07/15/19 10:00 82 150/64 H 07/15/19 09:40 76 152/62 H 07/15/19 09:20 81 149/69 H 07/15/19 09:08 79 134/61 07/15/19 08:57 36.5 C 80 07/15/19 03:50 36.8 C 89 18 101/51 L 94 07/15/19 00:13 83
[2019-07-15] MEDS: DAPTOmycin 450 MG in SYRINGE 0 ML IV SCH (13:30)
[2019-07-15] MEDS: HYDROmorphone INJ 0.5 MG/0.5 ML SYR IV PRN (15:52)
[2019-07-15] MEDS: PRAMIPEXOLE DIHYDROCHLO 0.25 MG TAB PO SCH (21:31)
[2019-07-16] MEDS: HYDROCODONE/ACETAMOPHEN 5/325MG TAB PO PRN ×2 (04:14→10:54)
[2019-07-16] MEDS: HYDROmorphone INJ 0.5 MG/0.5 ML SYR IV PRN (04:55)
[2019-07-16] MEDS: LEVOTHYROXINE SODIUM 125 MCG TABLET PO SCH (06:17)
[2019-07-16 06:26] LABS: Basophils # (auto) 0.03 K/uL (0-0.2); Basophils % (auto) 0.4 %; Eosinophils # (auto) 0.11 K/uL (0-0.5); Eosinophils % (auto) 1.5 %; Hematocrit (blood only) 32.5 % (37-47); Immature Granulocytes # (auto) 0.03 K/uL (0.00-0.02); Immature Granulocytes % (auto) 0.4 %; Lymphocytes # (auto) 2.32 K/uL (1.2-3.4); Lymphocytes % (auto) 30.8 %; Mean Corpuscular Hgb Conc 30.8 g/dL (32-36); Mean Corpuscular Volume 97.3 fL (80-100); Monocytes # (auto) 1.08 K/uL (0.11-0.59); Monocytes % (auto) 14.3 %; Neutrophils # (auto) 3.96 K/uL (1.4-6.5); Neutrophils % (auto) 52.6 %; Platelet Count 260 K/uL (130-400); RDW Coefficient of Variation 15.9 % (11.5-14.5); RDW Standard Deviation 56.7 fL (36.4-46.3); Red Blood Count 3.34 M/uL (4.2-5.4); White Blood Count 7.53 K/uL (4.8-10.8)
[2019-07-16 07:06] LABS: BUN Creatinine Ratio 4.5 (10-20); Calcium 8.7 mg/dl (8.5-10.1); Creatinine Clr Calc Pharmacy 18.1 ml/min; Est GFR (African American) 14.3; Est GFR (Non-African American) 12.4; Potassium 4.8 mmol/L (3.5-5.1)
--- NOTE | 2019-07-16 08:19 | Nephrology Progress Note ---
Date of Service July 16, 2019 Assessment & Plan (1) End-stage renal disease on hemodialysis: 58 yo F with ESRD on HD TTS. Admitted with rt hand ischemic ulcer. Rx IV Daptomycin. Debridement on 07/04/2019 and 07/09/19. HD TTS schedule. Continue outpatient Rx at [place] upon discharge. Epogen and Venofer provided with dialysis during admission for anemia. Had dialysis yesterday, currently overall feeling well, volume status, electrolyte, blood pressure acceptable. --okay to be discharged from nephrology standpoint, please notify dialysis unit at [facility] upon discharge for next dialysis tomorrow 07/17/2019 Will follow Subjective Kortney was seen examined this morning. Overall she is feeling well and looking forward to go home. Denies any symptoms. Blood pressure stable. Volume status acceptable. Electrolyte acceptable. Review of Systems Review of Systems: All systems reviewed & are unremarkable except as noted in HPI & below Physical Exam Constitutional: WD/WN, vitals as above well developed, well nourished and + acute distress (With pain in right hand) Respiratory: normal respiratory effort, lungs clear to auscultation Cardiovascular: RRR, no murmur, no edema Extremities: + AV fistula (Right brachiocephalic AV fistula with thrill and bruit right hand incision.) Neurologic: moves all extremities and awake; not confused Psychiatric: A+Ox3, euthymic affect Results & Data Vital Signs (Past 12 Hours) Vital Signs Temp Pulse Pulse Resp BP Pulse Ox 07/16/19 07:26 37.2 C 78 17 109/71 97 07/16/19 04:03 36.7 C 81 18 107/68 98 07/15/19 22:30 36.6 C 89 18 127/94 97 PG Care Time/CCT Total # of Minutes Spent Total Time Spent with Patient: Total time spent is greater than 50% in coordination of care (as documented) at patient's floor/unit and/or counseling patient:
[2019-07-16] MEDS: INSULIN ASPART 100 UNITS/ML 3 ML PEN SC SCH ×4 (08:33→20:48)
[2019-07-16] MEDS: POLYETHYLENE (MIRALAX) 17 GM PACK PO SCH (08:34)
[2019-07-16] MEDS: SEVELAMER HCL 800 MG TABLET PO SCH ×3 (08:35→18:01)
[2019-07-16] MEDS: INSULIN GLARGINE SOLOSTAR 100 UNITS/ML 3 ML PEN SC SCH (08:35)
[2019-07-16] MEDS: DOCUSATE SODIUM 100 MG CAP PO SCH ×2 (08:36→20:45)
[2019-07-16] MEDS: BUMETANIDE 1 MG TAB PO SCH (08:36)
[2019-07-16] MEDS: ASPIRIN 81 MG ECTAB PO SCH (08:37)
[2019-07-16] MEDS: APIXABAN 2.5 MG TAB PO SCH ×2 (08:39→20:45)
[2019-07-16] MEDS: METOPROLOL TARTRATE 25 MG TAB PO SCH ×2 (08:39→20:49)
[2019-07-16] MEDS: EUCERIN CR 120 GM JAR EXT SCH ×2 (08:40→20:45)
[2019-07-16] MEDS: CHOLECALCIFEROL 1,000 UNITS TAB PO SCH (08:41)
[2019-07-16] MEDS: NEPHROCAPS PO SCH (08:41)
--- NOTE | 2019-07-16 12:35 | Family Medicine Progress Note ---
Date of Service July 16, 2019 Assessment & Plan (1) Cellulitis of right hand: 58-year-old female with DM, A. fib, hypothyroid, RLS, on dialysis for ESRD transferred to [facility] for right hand infection now on Daptomycin previously on Vancomycin and linezolid OSH and previously failed imipenem cilastin therapy. Orthopaedic surgery performed operative debridement 07/04/2019, 4th finger amputation on 07/09. Acute right hand infection - MRI results highly suspicious for osteomyelitis of the 4th metacarpal base, concern for septic arthritis, concern for infection of the tenosynovitis of the flexor tendon of the 4th digit - wound cultures grew MRSA from 07/01/2019 - Daptomycin 450 mg IV Q48h -D/C'd ciprofloxacin per ID; not concerned about pseudomonas . Per ID will need six weeks of IV antibiotics daptomycin moving forward q 48 hour dosing. [facility] has agreed to administering IV dapto after HD sessions TTS. Will likely get approval/shipments/etc until this weekend, so pt will stay here until medical bureaucracy is cleared up. CM to follow up. -Will need weekly cbc, cmp, esr, cpk while on abx -07/09: S/P right hand I&D and amputation 4th finger. Will f/u [facility] with Dr. Colon in 10-14 days -Pain: PO [place] 5/325 mg q4h prn, IV dilaudid .5 mg q4h prn ESRD - Access US performed on arrival indicates patent BPG and patent AVF. - HD TTS as scheduled per nephrology Colon Cancer Spoke with son who mentioned that patient has history of colon cancer diagnosed at [facility] in [place] Requested records transferred over Patient requesting follow up with [facility] oncology and made Dr. Vieyra aware who recommended outpatient scheduling. Diabetes - A1C 6.0 (07/02) - on insulin sliding scale. Appreciate glycemic management consult A. fib w/ history of CVA -Discussed with PCP and found that pt had significant bleeding when on Coumadin, but was doing well on apixaban and requested that we switch her anticoagulation back prior to discharge -apixaban 2.5 BID Hypothyroid Continue home synthroid 250 mg RLS - continue Pramipexole .5 mg QHS FEN: dialysis diet DVT: Apixiban FULL CODE Dispo: Med-Surg. Coordinating with [place] dialysis [facility] for IV Dapto TTS. Appreciate CM following. Hopefully d/c tomorrow after arrangements made Supervising Physician Co-Signing Physician Notes I personally examined the patient and verified all niño points of history and exam, discussed case, and agree with decision making with Dr Duckworth. Vomited just prior to my coming into the room. She notes he thinks it was the fish. She notes her stomach feels okay now. Vitals noted, in general she is awake and alert no physical distress. HEENT normocephalic atraumatic mucous membranes moist. Breathing unlabored no accessory muscle use good effort. Skin shows no rashes no pallor or icterus. Right hand is dressed no tracking erythema up her arm. No new focal neuro deficits. I help her get cleaned up, as she had vomit on her chin. Hand cellulitis/osteomy/septic joint/tenosynovitiscontinue daptomycin and wound care. Appears to be stable in this regard. INR therapeutic, but given discussion with PCP at [facility], changed back to apixiban due to prior severe bleed on coumadin Otherwise as above Subjective 58 yo M found in bed this AM in NAD. No reported overnight events. R hand pain tolerable per pt. Denies fevers or chills. No bleeding today. No other acute concerns or complaints. Pt made aware that dialysis has agreed to admin iv antibiotics, but will likely get approval/shipments until weekend. Still waiting for this as we are dealing with silly medical bureaucracy. Review of Systems Review of Systems: All systems reviewed & are unremarkable except as noted in HPI & below Physical Exam Constitutional: WD/WN, vitals as above Eyes: PERRL, conjunctivae normal, anicteric sclerae Neck: trachea midline, no thyromegaly Respiratory: normal respiratory effort, lungs clear to auscultation Cardiovascular: RRR, no murmur, no edema Gastrointestinal (Abdomen): normal bowel sounds, soft, nontender, no hepatosplenomegaly Psychiatric: A+Ox3, euthymic affect Results & Data Vital Signs (Past 12 Hours) Vital Signs Temp Pulse Pulse Resp BP Pulse Ox 07/16/19 11:25 36.6 C 66 17 95/57 L 98 07/16/19 07:26 37.2 C 78 17 109/71 97 07/16/19 04:03 36.7 C 81 18 107/68 98 PG Care Time/CCT Total # of Minutes Spent Total Time Spent with Patient: Total time spent is greater than 50% in coordination of care (as documented) at patient's floor/unit and/or counseling patient: Resident Activity Tracking Resident Involvement: Resident Care Provided Care Provided: Adult Hospital Medicine
[2019-07-16] MEDS: ONDANSETRON INJ 2 MG/ML 2 ML VIAL IV PRN ×2 (13:06→17:57)
--- NOTE | 2019-07-16 14:01 | Pharmacy Report ---
Pharmacy Glycemic Short Note 2 - Date of Service July 16, 2019 - Glycemic Short BSG Results (Last 24 hours): 07/15/19 07/15/19 07/15/19 13:51 16:34 20:24 Glucose POC Glucose 174 H 117 H 108 H 07/16/19 07/16/19 07/16/19 06:04 07:42 11:40 Glucose 128 H POC Glucose 129 H 171 H ASSESSMENT: * BSGs in the last 48 hrs have been within goal range except for lunch BSG which was elevated to 212 on 07/14. * Carb Ratio was tightened to 7 at breakfast yesterday and it resulted in better BSGs (in the 170s) yesterday and today. Patient has been eating a large breakfast (over 100 gm of Carbs). * Further tightened Carb ratio to 6 today in an attempt to get lunch BSG within range. PLAN FOR INPATIENT GLYCEMIC CONTROL: * Basal insulin * Lantus 11u QAM * Bolus insulin * NovoLog per scale ACHS or Q6hrs while NPO * Goal Range: Low 110 mg/dL - High 140 mg/dL * Correction Factor: 25 mg/dL/unit * Nutritional / Prandial insulin per carb ratio of 1 unit per 6 grams CHO consumed at breakfast; 1 unit per 8 gm CHO with rest of the meals and HS
[2019-07-16] MEDS: PRAMIPEXOLE DIHYDROCHLO 0.25 MG TAB PO SCH (20:45)
[2019-07-17] MEDS: LEVOTHYROXINE SODIUM 125 MCG TABLET PO SCH (06:24)
[2019-07-17 06:41] LABS: Basophils # (auto) 0.02 K/uL (0-0.2); Basophils % (auto) 0.3 %; Eosinophils # (auto) 0.08 K/uL (0-0.5); Eosinophils % (auto) 1.1 %; Hematocrit (blood only) 29.1 % (37-47); Hemoglobin 9.2 g/dL (12.0-16.0); Immature Granulocytes # (auto) 0.01 K/uL (0.00-0.02); Immature Granulocytes % (auto) 0.1 %; Lymphocytes # (auto) 2.24 K/uL (1.2-3.4); Lymphocytes % (auto) 30.4 %; Mean Corpuscular Hgb Conc 31.6 g/dL (32-36); Mean Corpuscular Volume 96.7 fL (80-100); Mean Platelet Volume 10.2 fL (7.4-10.4); Monocytes % (auto) 13.6 %; Neutrophils # (auto) 4.03 K/uL (1.4-6.5); Neutrophils % (auto) 54.5 %; Platelet Count 242 K/uL (130-400); RDW Standard Deviation 56.1 fL (36.4-46.3); Red Blood Count 3.01 M/uL (4.2-5.4); White Blood Count 7.38 K/uL (4.8-10.8)
[2019-07-17 07:28] LABS: BUN Creatinine Ratio 5.7 (10-20); Calcium 8.4 mg/dl (8.5-10.1); Creatinine Clr Calc Pharmacy 13.1 ml/min; Est GFR (African American) 9.8; Est GFR (Non-African American) 8.4
[2019-07-17] MEDS: ASPIRIN 81 MG ECTAB PO SCH (08:06)
[2019-07-17] MEDS: SEVELAMER HCL 800 MG TABLET PO SCH ×3 (08:06→17:22)
[2019-07-17] MEDS: APIXABAN 2.5 MG TAB PO SCH ×2 (08:06→19:37)
[2019-07-17] MEDS: NEPHROCAPS PO SCH (08:06)
[2019-07-17] MEDS: METOPROLOL TARTRATE 25 MG TAB PO SCH ×2 (08:06→19:35)
[2019-07-17] MEDS: BUMETANIDE 1 MG TAB PO SCH (08:06)
[2019-07-17] MEDS: CHOLECALCIFEROL 1,000 UNITS TAB PO SCH (08:07)
[2019-07-17] MEDS: DOCUSATE SODIUM 100 MG CAP PO SCH ×2 (08:07→19:35)
[2019-07-17] MEDS: POLYETHYLENE (MIRALAX) 17 GM PACK PO SCH (08:07)
[2019-07-17] MEDS: INSULIN GLARGINE SOLOSTAR 100 UNITS/ML 3 ML PEN SC SCH (08:08)
[2019-07-17] MEDS: INSULIN ASPART 100 UNITS/ML 3 ML PEN SC SCH ×4 (08:09→20:45)
[2019-07-17] MEDS: EUCERIN CR 120 GM JAR EXT SCH ×2 (08:14→19:36)
[2019-07-17] MEDS: HYDROCODONE/ACETAMOPHEN 5/325MG TAB PO PRN ×3 (09:49→17:29)
--- NOTE | 2019-07-17 11:16 | Dialysis Progress Note ---
Date of Service July 17, 2019 Assessment & Plan (1) End-stage renal disease on hemodialysis: 58 yo F with ESRD on HD TTS. Admitted with rt hand ischemic ulcer. Rx IV Daptomycin. Debridement on 07/04/2019 and 07/09/19. HD TTS schedule. Continue outpatient Rx at [facility] upon discharge. Epogen and Venofer provided with dialysis during admission for anemia. Had dialysis yesterday, currently overall feeling well, volume status, electrolyte, blood pressure acceptable. --dialysis currently a as her regular schedule for 3.5 hours with 2 K bath. --Epogen 4000 units IV with dialysis during next dialysis treatment --continue Nephrocaps and Renvela as phosphate binder --dose medications for GFR less than 10, right arm nephrology precaution --okay to be discharged from nephrology standpoint, please notify dialysis unit at [facility] upon discharge for next dialysis Friday07/20/2019 Will follow Subjective Kortney was seen examined during hemodialysis treatment this morning. Overall she is feeling well and tolerating dialysis however very sleepy as she mention she could not sleep last night and she just received narcotics for pain in her right hand. Denies any symptoms. Blood pressure stable. Volume status acceptable. Electrolyte acceptable. Review of Systems Review of Systems: All systems reviewed & are unremarkable except as noted in HPI & below Physical Exam Constitutional: WD/WN, vitals as above well developed, well nourished and + acute distress (With pain in right hand) Respiratory: normal respiratory effort, lungs clear to auscultation Cardiovascular: RRR, no murmur, no edema Extremities: + AV fistula (Right brachiocephalic AV fistula with thrill and bruit right hand incision.) Neurologic: moves all extremities and awake; not confused Psychiatric: A+Ox3, euthymic affect Results & Data Vital Signs (Past 12 Hours) Vital Signs Temp Pulse Pulse Pulse Resp BP BP 07/17/19 11:00 81 158/65 H 07/17/19 10:40 73 134/41 L 07/17/19 10:20 76 128/58 L 07/17/19 10:00 36.7 C 81 07/17/19 07:46 36.8 C 79 18 109/53 L 07/17/19 03:33 36.9 C 87 20 118/66 07/17/19 00:00 85 07/16/19 23:51 36.9 C 88 20 96/42 L Pulse Ox 07/17/19 11:00 07/17/19 10:40 07/17/19 10:20 07/17/19 10:00 07/17/19 07:46 95 07/17/19 03:33 94 07/17/19 00:00 07/16/19 23:51 95
[2019-07-17] MEDS: DAPTOmycin 450 MG in SYRINGE 0 ML IV SCH (13:39)
--- NOTE | 2019-07-17 13:41 | Family Medicine Progress Note ---
Date of Service July 17, 2019 Assessment & Plan (1) Cellulitis of right hand: 58-year-old female with DM, A. fib, hypothyroidism, RLS, on dialysis for ESRD who was transferred to [facility] for a right hand infection. Currently being treated with IV Daptomycin and s/p operative debridement 06/24, 4th finger amputation on 07/09. Awaiting discharge 07/18. Acute right hand infection -Currently stable; afebrile and doing well postop. -will receive IV daptomycin as outpt after hemodialysis. - MRI results highly suspicious for osteomyelitis of the 4th metacarpal base, concern for septic arthritis, concern for infection of the tenosynovitis of the flexor tendon of the 4th digit - wound cultures grew MRSA from 07/01/2019 - Treated with Daptomycin 450 mg IV Q48h while hospitalized at [facility]. -D/C'd ciprofloxacin per ID; not concerned about pseudomonas . Per ID will need six weeks of IV antibiotics daptomycin moving forward q 48 hour dosing. [facility] has agreed to administering IV dapto after HD sessions Friday, , Friday. -Will need weekly cbc, cmp, esr, cpk while on abx -07/09: S/P right hand I&D and amputation 4th finger. Will f/u [facility] Colon in 10-14 days -Pain: PO [place] 5/325 mg q4h prn, IV dilaudid .5 mg q4h prn ESRD -Pt post dialysis currently 07/17 - Access US performed on arrival indicates patent BPG and patent AVF. - HD TTS as scheduled per nephrology Colon Cancer son mentioned that patient has history of colon cancer diagnosed at [facility] in [place] Requested records transferred over Patient requesting follow up with [facility] oncology; Dr. Vieyra aware who recommended outpatient scheduling. Diabetes - A1C 6.0 (07/02) - on insulin sliding scale. Appreciate glycemic management consult A. fib w/ history of CVA -Discussed with PCP and found that pt had significant bleeding when on Coumadin, but was doing well on apixaban and requested that we switch her anticoagulation back prior to discharge -apixaban 2.5 BID Hypothyroid Continue home synthroid 250 mg RLS - continue Pramipexole .5 mg QHS FEN: dialysis diet DVT: Apixiban FULL CODE Dispo: D/C anticipated 07/18 Supervising Physician Co-Signing Physician Notes I personally examined the patient and verified all niño points of history and exam, discussed case, and agree with decision making with Dr Prasad No further nausea or vomiting. No new complaints today. Vitals noted, in general she is awake and alert no physical distress. HEENT normocephalic atraumatic mucous membranes moist. Breathing unlabored no accessory muscle use good effort. Skin shows no rashes no pallor or icterus. Right hand is dressed no tracking erythema up her arm. No new focal neuro deficits. Hand cellulitis/osteomy/septic joint/tenosynovitiscontinue daptomycin and wound care. Appears to be stable in this regard. Reviewed antibiotic dosing with pharmacy, to ensure that are dosing after dialysis would also be adequate for the timeframe between Friday dialysis and Friday dialysis. Fortunately this will suffice. INR therapeutic, but given discussion with PCP at SNF, changed back to apixiban due to prior severe bleed on coumadin Otherwise as above, anticipate return to SNF tomorrow. Subjective Ms. Ardon states she's doing well today. States her pain is well controlled. Denies fevers, chills, night sweats currently. Review of Systems Review of Systems: All systems reviewed & are unremarkable except as noted in HPI & below Physical Exam Physical Exam: General: Alert, orientedx2. No acute distress HEENT: NC/AT, PERRLA, EOMI, oropharynx moist. Chest: Nontender to palpation. CV: RRR, Normal s1, s2. No murmurs appreciated Resp: Breath sounds clear bilaterally, no increased effort of breathing. Abdomen: Soft, nontender, nondistended. No guarding. No organomegaly appreciated. Extremities: Right hand bandaged with amputated digits. Thumb and 1 finger protruding. Bandage clean without evidence of drainage or blood. No edema in lower extremities bilaterally. Results & Data Vital Signs (Past 12 Hours) Vital Signs Temp Pulse Pulse Pulse Resp BP BP 07/17/19 13:20 71 99/46 L 07/17/19 13:00 60 99/68 L 07/17/19 12:40 61 94/60 L 07/17/19 12:20 74 95/44 L 07/17/19 12:00 86 111/42 L 07/17/19 11:40 69 124/48 L 07/17/19 11:20 71 128/52 L 07/17/19 11:00 81 158/65 H 07/17/19 10:40 73 134/41 L 07/17/19 10:20 76 128/58 L 07/17/19 10:00 36.7 C 81 07/17/19 07:46 36.8 C 79 18 109/53 L 07/17/19 03:33 36.9 C 87 20 118/66 Pulse Ox 07/17/19 13:20 07/17/19 13:00 07/17/19 12:40 07/17/19 12:20 07/17/19 12:00 07/17/19 11:40 07/17/19 11:20 07/17/19 11:00 07/17/19 10:40 07/17/19 10:20 07/17/19 10:00 07/17/19 07:46 95 07/17/19 03:33 94 Laboratory Results Laboratory Results - last 24 hr 07/16/19 07/16/19 07/17/19 15:58 20:20 06:09 WBC RBC Hgb Hct MCV MCH MCHC RDW Std Deviation RDW Coeff of Tommy Plt Count MPV Immature Gran % (Auto) Neut % (Auto) Lymph % (Auto) [place] % (Auto) Eos % (Auto) Baso % (Auto) Immature Gran # (Auto) Neut # (Auto) Lymph # (Auto) [place] # (Auto) Eos # (Auto) Baso # (Auto) Sodium 134 L Potassium 5.0 Chloride 102 Carbon Dioxide 26 Anion Gap 6.0 BUN 30 H D Creatinine 5.15 H* D Est Cr Clr Drug Dosing 13.1 Est GFR ( Amer) 9.8 Est GFR (Non-Af Amer) 8.4 BUN/Creatinine Ratio 5.7 L Glucose 123 H POC Glucose 96 142 H Calcium 8.4 L 07/17/19 07/17/19 06:09 07:35 WBC 7.38 RBC 3.01 L Hgb 9.2 L Hct 29.1 L MCV 96.7 MCH 30.6 MCHC 31.6 L RDW Std Deviation 56.1 H RDW Coeff of Tommy 16.0 H Plt Count 242 MPV 10.2 Immature Gran % (Auto) 0.1 Neut % (Auto) 54.5 Lymph % (Auto) 30.4 [place] % (Auto) 13.6 Eos % (Auto) 1.1 Baso % (Auto) 0.3 Immature Gran # (Auto) 0.01 Neut # (Auto) 4.03 Lymph # (Auto) 2.24 [place] # (Auto) 1.00 H Eos # (Auto) 0.08 Baso # (Auto) 0.02 Sodium Potassium Chloride Carbon Dioxide Anion Gap BUN Creatinine Est Cr Clr Drug Dosing Est GFR ( Amer) Est GFR (Non-Af Amer) BUN/Creatinine Ratio Glucose POC Glucose 128 H Calcium Medications Administered Home Medications Selan Silver Protectant 1 applic TOPICAL BID 03/24/19 [History] lidocaine-prilocaine 1 applic TOPICAL DIRECTED PRN 03/24/19 [History Confirmed 03/24/19] acetaminophen 500 mg PO Q6 PRN MDD 3000 07/01/19 [History Confirmed 07/01/19] aspirin 81 mg PO DAILY 07/01/19 [History Confirmed 07/01/19] bisacodyl 5 mg PO 07/01/19 [History] bisacodyl 10 mg [place] DAILY PRN 07/01/19 [History Confirmed 07/01/19] calcium carbonate [Tums] PO HS 07/01/19 [History] cholecalciferol (vitamin D3) 2,000 unit PO DAILY 07/01/19 [History Confirmed 07/12] docusate sodium 100 mg PO BID 07/01/19 [History Confirmed 07/01/19] insulin glargine 20 unit SUBCUT BID 07/01/19 [History Confirmed 07/01/19] insulin lispro 7 - 9 unit SUBCUT BID 07/01/19 [History Confirmed 07/01/19] metoprolol tartrate 25 mg PO BID 07/01/19 [History Confirmed 07/01/19] polyethylene glycol 3350 17 g PO DAILY 07/01/19 [History Confirmed 07/01/19] pramipexole 0.25 mg PO HS 07/01/19 [History Confirmed 07/01/19] sertraline 37.5 mg PO DAILY 07/01/19 [History Confirmed 07/01/19] sevelamer carbonate 800 mg PO TIDM 07/01/19 [History Confirmed 07/01/19] warfarin 3 mg PO DAILY 07/01/19 [History Confirmed 07/01/19] daptomycin 450 mg IV DAILY #10 ea 07/13/19 [Rx] hydrocodone-acetaminophen [[place]] 1 tab PO Q4H PRN #30 tab 07/13/19 [Rx] levothyroxine 250 mcg PO DAILY #30 tab 07/13/19 [Rx] Active Medications Hydrocodone Bitart/Acetaminophen ([place] 5/325) 1 tab PO Q4H PRN PRN Reason: Pain Stop: 07/25/19 16:10 Last Admin: 07/17/19 09:49 Dose: 1 tab Documented by: Apixaban (Eliquis) 2.5 mg PO BID [facility] Stop: 08/13/19 20:59 Last Admin: 07/17/19 08:06 Dose: 2.5 mg Documented by: Aspirin (Ecotrin Ectab) 81 mg PO DAILY [facility] Stop: 08/01/19 08:59 Last Admin: 07/17/19 08:06 Dose: 81 mg Documented by: Bisacodyl (Dulcolax) 10 mg [place] DAILY PRN PRN Reason: Constipation Stop: 07/31/19 20:13 Bisacodyl (Dulcolax) 5 mg PO DAILY PRN PRN Reason: Constipation Stop: 07/31/19 20:13 Last Admin: 07/08/19 09:14 Dose: 5 mg Documented by: Bumetanide (Bumex) 2 mg PO DAILY [facility] Stop: 08/01/19 08:59 Last Admin: 07/17/19 08:06 Dose: 2 mg Documented by: Dextrose (Dextrose 50%) 25 - 50 ml IV UD PRN; Protocol PRN Reason: Hypoglycemia Protocol Stop: 07/31/19 20:08 Diphenhydramine HCl (Benadryl) 25 mg IV Q4H PRN PRN Reason: Allergic Reaction Stop: 07/31/19 20:37 Last Admin: 07/15/19 01:16 Dose: 25 mg Documented by: Docusate Sodium (Colace) 100 mg PO BID [facility] Stop: 08/08/19 20:59 Last Admin: 07/17/19 08:07 Dose: 100 mg Documented by: Glucose (Dex4 Glucose) 4 - 8 tabs PO UD PRN; Protocol PRN Reason: Hypoglycemia Protocol Stop: 07/31/19 20:08 Glucose (Glucose 40%) 15 - 30 gm PO UD PRN; Protocol PRN Reason: Hypoglycemia Protocol Stop: 07/31/19 20:08 Hydromorphone HCl (Dilaudid) 0.5 mg IV Q4H PRN PRN Reason: Pain Stop: 07/18/19 22:27 Last Admin: 07/16/19 04:55 Dose: 0.5 mg Documented by: Daptomycin 450 mg/ Syringe 9 mls @ 0 mls/min IV Q48H [facility]; Protocol Stop: 08/24/19 11:59 Last Admin: 07/15/19 13:30 Dose: 9 mls/min Documented by: Insulin Aspart (Novolog Flexpen) 0 units SC TID@1130,1630,2100 [facility]; Protocol Stop: 08/14/19 11:29 Last Admin: 07/16/19 20:48 Dose: 1 units Documented by: Insulin Aspart (Novolog Flexpen) 0 units SC DAILY@0730 [facility]; Protocol Stop: 08/14/19 07:29 Last Admin: 07/17/19 08:09 Dose: 16 units Documented by: Insulin Glargine (Lantus Solostar Pen) 11 units SC QAM [facility]; Protocol Stop: 08/10/19 08:59 Last Admin: 07/17/19 08:08 Dose: 11 units Documented by: Levothyroxine Sodium (Synthroid) 250 mcg PO DAILYBB [facility] Stop: 08/01/19 06:29 Last Admin: 07/17/19 06:24 Dose: 250 mcg Documented by: Lidocaine/Prilocaine (Emla 2.5%) 1 ea EXT DAILY PRN PRN Reason: PRIOR TO DIALYSIS Stop: 07/31/19 20:13 Metoprolol Tartrate (Lopressor) 25 mg PO BID [facility] Stop: 07/31/19 20:59 Last Admin: 07/17/19 08:06 Dose: 25 mg Documented by: Miscellaneous (Carbohydrates For Hypoglycemia) 15 - 30 gm PO UD PRN PRN Reason: Hypoglycemia Treatment Stop: 07/31/19 20:08 Miscellaneous Information (Consult Glycemic Management Pharmacy) 1 ea N/A UD PRN; Protocol PRN Reason: Consult Stop: 07/31/19 21:14 Multi-Ingredient Cream (Hydrocerin) 1 appln EXT BID [facility] Stop: 08/01/19 20:59 Last Admin: 07/17/19 08:14 Dose: 1 appln Documented by: Ondansetron HCl (Zofran) 4 mg IV Q4H PRN PRN Reason: Nausea Stop: 08/13/19 20:48 Last Admin: 07/16/19 17:57 Dose: 4 mg Documented by: Polyethylene Glycol (Miralax Powder Packet) 17 gm PO DAILY [facility] Stop: 08/09/19 08:59 Last Admin: 07/17/19 08:07 Dose: 17 gm Documented by: Pramipexole Dihydrochloride (Mirapex) 0.25 mg PO HS [facility] Stop: 07/31/19 20:59 Last Admin: 07/16/19 20:45 Dose: 0.25 mg Documented by: Sennosides (Senokot) 8.6 mg PO HS PRN PRN Reason: Constipation Stop: 07/31/19 20:13 Last Admin: 07/08/19 20:51 Dose: 8.6 mg Documented by: Sevelamer HCl (Renagel) 800 mg PO TIDM [facility] Stop: 08/01/19 07:59 Last Admin: 07/17/19 08:06 Dose: 800 mg Documented by: Vitamin B Complex/Folic Acid (Nephrocaps) 1 cap PO QAM [facility] Stop: 08/02/19 10:59 Last Admin: 07/17/19 08:06 Dose: 1 cap Documented by: Vitamin D (Vitamin D3) 2,000 units PO DAILY [facility] Stop: 08/09/19 08:59 Last Admin: 07/17/19 08:07 Dose: 2,000 units Documented by: PG Care Time/CCT Total # of Minutes Spent Total Time Spent with Patient: Total time spent is greater than 50% in coordination of care (as documented) at patient's floor/unit and/or counseling patient:
[2019-07-17] MEDS: HYDROmorphone INJ 0.5 MG/0.5 ML SYR IV PRN (19:33)
[2019-07-17] MEDS: PRAMIPEXOLE DIHYDROCHLO 0.25 MG TAB PO SCH (19:35)
[2019-07-17] MEDS: ONDANSETRON INJ 2 MG/ML 2 ML VIAL IV PRN (21:35)
[2019-07-18] MEDS: HYDROCODONE/ACETAMOPHEN 5/325MG TAB PO PRN ×3 (01:33→21:09)
[2019-07-18] MEDS: LEVOTHYROXINE SODIUM 125 MCG TABLET PO SCH (05:45)
--- NOTE | 2019-07-18 07:25 | Discharge Summary ---
Date of Service July 19, 2019 Admission HPI Per Admitting Provider This is a 58-year-old female with significant diabetes, neuropathy and peripheral vascular disease as well as a chronic dialysis. The patient had ulceration and abscess with deep infection of her right hand on several occasions. She had a prior debridement by Dr. Meza. Presented with ulceration on the dorsum of the right hand with swelling of her residual fourth digit. MRI demonstrated likely septic arthritis fourth metacarpophalangeal joint with flexor tenosynovitis of the fourth digit and severe tissue loss with ulceration dorsum of the hand. The patient was then scheduled for surgery as indicated. The patient was originally scheduled to have surgery yesterday; however, she was in dialysis for significant portion of the day and Anesthesia service was concerned about safety of anesthetizing the patient same day of dialysis. The patient was then scheduled for surgery today as indicated. All potential risks, benefits, complications, alternatives, rehab, potential for incomplete relief of symptoms, need for further surgery, DVT, PE, , persistent pain, swelling, scarring, weakness, neurovascular injury, wound complications were discussed with the patient. The patient decided to proceed with procedure as indicated. Admission Exam Per Admitting Provider From Jul 08, 2019: WD/WN, vitals as above Eyes: PERRL, conjunctivae normal, anicteric sclerae Neck: trachea midline, no thyromegaly Respiratory: normal respiratory effort, lungs clear to auscultation Cardiovascular: RRR, no murmur, no edema Gastrointestinal (Abdomen): normal bowel sounds, soft, nontender, no hepatosplenomegaly Musculoskeletal: R hand with less erythema. 4th finger purple colored with distal tip zoe. Small dry ulceration on medial side at PIP flex point. Very tender to touch. No purulence, dry. R hand bandaged. Psychiatric: A+Ox3, euthymic affect Principal Diagnosis Right hand cellulitis Discharge Exam General: Alert, oriented. No acute distress HEENT: NC/AT, PERRLA, EOMI, oropharynx moist. Chest: Nontender to palpation. CV: RRR, Normal s1, s2. Blowing murmurs appreciated Resp: Breath sounds clear bilaterally, no increased effort of breathing. No crackles/rhonchi/rales. Abdomen: Soft, nontender, nondistended. No guarding. No organomegaly appreciated. Extremities: Right hand with amputated digits, thumb and .litte finger remaining. Stitches present. No blood or drainage noted from incision. No edema in lower extremities bilaterally. Discharge Data Allergies Allergy/AdvReac Type Severity Reaction Status Date / Time oxycodone Allergy Intermediate HIVES,RASH Verified 03/24/19 16:46 Sulfa (Sulfonamide Allergy Intermediate HIVES,RASH Verified 03/24/19 16:46 Antibiotics) cephalexin Allergy Mild HIVES Verified 03/24/19 16:46 Penicillins Allergy Mild RASH Verified 03/24/19 16:46 Carbonic Anhydrase Inhibitors Allergy Unknown Unknown Verified 07/09/19 18:29 Dyazide Allergy Unknown UNKNOWN Verified 05/08/18 11:24 hydrochlorothiazide Allergy Unknown UNKNOWN Verified 03/24/19 16:46 Sulfonylureas Allergy Unknown UNKNOWN Verified 03/24/19 16:46 triamterene Allergy Unknown UNKNOWN Verified 03/24/19 16:46 Consultations 07/01/19 19:58 Consult Nephrology Routine 07/01/19 20:03 Consult Infectious Diseases Routine Consult Vascular Surgery Routine 07/01/19 20:31 Consult Orthopedic Surgery Routine 07/04/19 10:56 Consult Case Management - Discharge Planning Routine 07/11/19 14:06 Consult Case Management - Discharge Planning Routine 07/14/19 08:57 Consult Vascular Surgery Routine Procedures Performed Operation Date: 07/03/19 09:35 <No data on this case meets the specified criteria> Operation Date: 07/04/19 09:00 Actual Procedures p Irrigation and Debridement right hand ulcer; Resection of Extensor 4th digit; irrigation and debridement 4th metacarpal phalangeal joint; Resection 4th matcarpal head & proximal phalanyx; Tenosynovectomy of 4th flexor(Right) - Henrik Izaguirre DO Operation Date: 07/09/19 11:45 Actual Procedures p Right Hand Incision and Drainage(Right) - Juvencio Colon MD s Right 4th Finger Amputation(Right) - Juvencio Colon MD Ordered Studies 07/01/19 20:30 US hemodialysis access Stat 07/02/19 13:54 MR hand RT wo con Routine Hospital Course (1) Cellulitis of right hand: 58-year-old female with DM, A. fib, hypothyroidism, RLS, on dialysis for ESRD transferred to [facility] for right hand infection now on Daptomycin. Was previously on Vancomycin and linezolid at the outside facility and previously failed imipenem/cilastin therapy. Orthopedic surgery performed, operative debridement 07/04/2019, 4th finger amputation on 07/09. The following is the medical management during stay here: Acute right hand infection - MRI results highly suspicious for osteomyelitis of the 4th metacarpal base, concern for septic arthritis, concern for infection of the tenosynovitis of the flexor tendon of the 4th digit - wound cultures grew MRSA from 07/01/2019 - no indications for vascular surgical intervention - Continue on Daptomycin 450 mg IV Q48h. Last dose given day of d/c, 07/19. -D/C'd ciprofloxacin per ID; not concerned about pseudomonas . Per ID will need six weeks of IV antibiotics daptomycin moving forward q 48 hour dosing. [facility] has agreed to administering IV dapto after HD sessions Friday, , Friday. -Pt will need weekly cbc, cmp, esr, cpk while on abx -07/09: S/P right hand I&D and amputation 4th finger. Will f/u at [facility] with Dr. Colon in 10-14 days -Pain: PO Hemphill 5/325 mg q4h prn, IV dilaudid .5 mg q4h prn ESRD - Access US performed on arrival indicates patent BPG and patent AVF - HD TThS as scheduled per nephrology Hx of Colon Cancer son mentioned that patient has history of colon cancer diagnosed [facility] [place] Requested records transferred over Patient requesting follow up with [facility] oncology; Dr. Vieyra aware who recommended outpatient scheduling. Diabetes - A1C 6.0 (07/02) - BSG managed with ISS here A. fib w/ history of CVA -Discussed with PCP and found that pt had significant bleeding when on Coumadin, but was doing well on apixaban and requested that we switch her anticoagulation back prior to discharge -apixaban 2.5 BID Hypothyroid Continue home synthroid 250 mg RLS - continue Pramipexole .5 mg QHS (2) Diabetes: (3) Atrial fibrillation: (4) End-stage renal disease on hemodialysis: Total Time Total Time Spent Total Time Spent (In Minutes): 60 Discharge Plan Discharge Items Patient Disposition: Transfer Half-Way Fac Reason For Visit: RIGHT HAND CELLULITIS Discharge Diagnosis: hand cellulitis Discharge Goals: Improve function and Therapeutic intervention Activity: Per 'Additional Instructions' section Non-emergency contact: Primary Care Provider Call non-emergency contact if: you have any medication questions, your symptoms worsen, your pain is not controlled and your temperature is above 101.5 Follow-up/Referrals: Padmaja Tatum DO [Physician] - 07/27/19 10:45 am (Please, follow up at [facility]'s Infectious Disease Office with Dr. Padmaja Tatum on FridayJuly 27 at 10:45 am. *The office is located in [address] of [facility]. This is the big building next to this hospital. The office address is [address] [place] [address] in [place]. If you need to change this appointment, call the office at [phone].) Juvencio Colon MD [Physician] - 07/27/19 12:00 pm (Please, follow up at [facility] with Dr. Colon's assistant professor of forestry, Sandy Mascorro PA-C, on FridayJuly 27 at 12:00 pm. *The office is located at [address] [place] [address] in [place]. If you need to change this appointment, call the office at [phone].) LAITH WICK [Primary Care Provider] - Diet: Carb Consistent or DM2 Addtl Provider Instructions: 58-year-old female with DM, A. fib, hypothyroidism, RLS, on dialysis for ESRD transferred to [facility] for right hand infection now on Daptomycin. Was previously on Vancomycin and linezolid at the outside facility and previously failed imipenem/cilastin therapy. Orthopedic surgery performed, operative debridement 07/04/2019, 4th finger amputation on 07/09. The following is the medical management during stay here: Acute right hand infection - MRI results highly suspicious for osteomyelitis of the 4th metacarpal base, concern for septic arthritis, concern for infection of the tenosynovitis of the flexor tendon of the 4th digit - wound cultures grew MRSA from 07/01/2019 - no indications for vascular surgical intervention - Continue on Daptomycin 450 mg IV Q48h. Last dose given day of d/c, 07/19. -D/C'd ciprofloxacin per ID; not concerned about pseudomonas . Per ID will need six weeks of IV antibiotics daptomycin moving forward q 48 hour dosing. [facility] has agreed to administering IV dapto after HD sessions Friday, , Friday. -Pt will need weekly cbc, cmp, esr, cpk while on abx -07/09: S/P right hand I&D and amputation 4th finger. Will f/u at [facility] with Dr. Colon in 10-14 days -Pain: PO Hemphill 5/325 mg q4h prn, IV dilaudid .5 mg q4h prn ESRD - Access US performed on arrival indicates patent BPG and patent AVF - HD TThS as scheduled per nephrology Hx of Colon Cancer son mentioned that patient has history of colon cancer diagnosed at [facility] [place] Requested records transferred over Patient requesting follow up with [facility] oncology; Dr. Vieyra aware who recommended outpatient scheduling. Diabetes - A1C 6.0 (07/02) - BSG managed with PAT here [facility]. fib w/ history of CVA -Discussed with PCP and found that pt had significant bleeding when on Coumadin, but was doing well on apixaban and requested that we switch her anticoagulation back prior to discharge -apixaban 2.5 BID Hypothyroid Continue home synthroid 250 mg RLS - continue Pramipexole .5 mg QHS SPECIAL CARE INSTRUCTIONS: * Change dressing daily. * Some drainage onto the dressing may occur. This is normal. * If the bandage feels excessively tight, you may loosen the elastic bandage but you MUST keep the wound covered. Then call the physician's office for further instructions. * If possible, keep your hand elevated above the level of your heart for the first 2 post operative days. You may use a sling if necessary. * You should move your fingers regularly (50-100 motions per hour) unless otherwise instructed. SPECIAL PRECAUTIONS: * If you notice increased drainage, fever over 101 degrees F. or severe, unremitting pain, call your physician/office at . * You may have been prescribed pain medication. If you experience nausea and/or skin rash, discontinue this medication and contact our office for an alternative medication. FOLLOW UP VISIT: If appointment is not already scheduled: Please call [facility] to make a follow-up appointment in 10 to 14 days from the day of your surgery with Dr. Colon at . Prescriptions: New daptomycin 350 mg recon soln 450 mg IV DAILY Qty: 10 RF: 0 levothyroxine 200 mcg tablet 250 mcg PO DAILY Qty: 30 RF: 0 hydrocodone-acetaminophen [Hemphill] 5-325 mg tablet 1 tab PO Q4H PRN (Reason: pain) Qty: 30 RF: 0 Continued lidocaine-prilocaine 2.5-2.5 % Cream 1 applic topical DIRECTED PRN (Reason: PRIOR TO DIALYSIS) RF: 0 Selan Silver Protectant 1 applic topical BID RF: 0 polyethylene glycol 3350 17 gram Powder In Packet 17 g PO DAILY RF: 0 warfarin 3 mg Tablet 3 mg PO DAILY RF: 0 bisacodyl 10 mg Suppository 10 mg MA DAILY PRN (Reason: Constipation) RF: 0 calcium carbonate [Tums] 200 mg calcium (500 mg) Tablet,Chewable PO HS RF: 0 docusate sodium 100 mg Capsule 100 mg PO BID RF: 0 pramipexole 0.25 mg Tablet 0.25 mg PO HS RF: 0 sertraline 25 mg Tablet 37.5 mg PO DAILY RF: 0 bisacodyl 5 mg Tablet,Delayed Release (Dr/Ec) 5 mg PO RF: 0 insulin lispro 100 unit/mL Insulin Pen 7 - 9 unit SUBCUT BID RF: 0 metoprolol tartrate 25 mg Tablet 25 mg PO BID RF: 0 insulin glargine 100 unit/mL (3 mL) Insulin Pen 20 unit SUBCUT BID RF: 0 sevelamer carbonate 800 mg Tablet 800 mg PO TIDM RF: 0 cholecalciferol (vitamin D3) 2,000 unit Capsule 2,000 unit PO DAILY RF: 0 acetaminophen tablet 500 mg PO Q6 MDD 3000 PRN (Reason: Pain) RF: 0 aspirin 81 mg PO DAILY RF: 0 Stand-Alone Forms: [facility] Discharge Orders: Discharge Order (Routine); Ordered 07/19/19 Ordered By: Maribel Prasad Skilled Items Patient informed of condition?: Yes DNR: No Discharge Level of Care: Skilled Communicable Disease: Yes (Pt on contact precautions on discharge. MRSA+) Discharge Prognosis: Stable Admission Data Admit Date/Time: 07/01/19 18:51 Attending Provider: Annie Lakhani Admit Provider: Carie Parker Primary Care Provider: LAITH WICK Other Providers: Carei Parker ; Abraham Brandt ; Natalio Younger ; Dayton Meza ; Henrik Izaguirre ; Rob Guillen ; Tom Rodas ; Randy Reyes Service: Telemetry Medical Other Interventions: Discharge Summary Assessment (RN) Last Done: 07/19/19 10:02 TX Date/Time DO NOT enter until pt leaves facility: 07/19/19 10:15 Supervising Physician Co-Signing Physician Notes Resident Physician Supervision Note: I independently interviewed and examined the patient and verified the niño history and physical, reviewed labs and image studies, discussed the case with the resident Dr. Prasad and agree with the findings and care plan. Time spent in discharge 35 min
[2019-07-18] MEDS: DOCUSATE SODIUM 100 MG CAP PO SCH ×2 (07:59→21:06)
[2019-07-18] MEDS: METOPROLOL TARTRATE 25 MG TAB PO SCH ×2 (07:59→21:03)
[2019-07-18] MEDS: ASPIRIN 81 MG ECTAB PO SCH (08:00)
[2019-07-18] MEDS: SEVELAMER HCL 800 MG TABLET PO SCH ×3 (08:00→17:06)
[2019-07-18] MEDS: POLYETHYLENE (MIRALAX) 17 GM PACK PO SCH (08:00)
[2019-07-18] MEDS: BUMETANIDE 1 MG TAB PO SCH (08:00)
[2019-07-18] MEDS: CHOLECALCIFEROL 1,000 UNITS TAB PO SCH (08:01)
[2019-07-18] MEDS: APIXABAN 2.5 MG TAB PO SCH ×2 (08:01→21:05)
[2019-07-18] MEDS: NEPHROCAPS PO SCH (08:01)
[2019-07-18] MEDS: INSULIN GLARGINE SOLOSTAR 100 UNITS/ML 3 ML PEN SC SCH (08:04)
[2019-07-18] MEDS: EUCERIN CR 120 GM JAR EXT SCH ×2 (08:04→21:06)
[2019-07-18] MEDS: INSULIN ASPART 100 UNITS/ML 3 ML PEN SC SCH ×4 (08:35→21:02)
[2019-07-18 10:53] LABS: Basophils # (auto) 0.02 K/uL (0-0.2); Basophils % (auto) 0.3 %; Eosinophils # (auto) 0.08 K/uL (0-0.5); Eosinophils % (auto) 1.2 %; Hematocrit (blood only) 33.2 % (37-47); Hemoglobin 10.4 g/dL (12.0-16.0); Immature Granulocytes # (auto) 0.01 K/uL (0.00-0.02); Immature Granulocytes % (auto) 0.1 %; Lymphocytes # (auto) 1.91 K/uL (1.2-3.4); Lymphocytes % (auto) 28.5 %; Mean Corpuscular Hgb Conc 31.3 g/dL (32-36); Mean Corpuscular Volume 96.5 fL (80-100); Mean Platelet Volume 9.8 fL (7.4-10.4); Monocytes # (auto) 0.67 K/uL (0.11-0.59); Neutrophils # (auto) 4.02 K/uL (1.4-6.5); Neutrophils % (auto) 59.9 %; Platelet Count 256 K/uL (130-400); RDW Coefficient of Variation 15.7 % (11.5-14.5); RDW Standard Deviation 55.5 fL (36.4-46.3); Red Blood Count 3.44 M/uL (4.2-5.4); White Blood Count 6.71 K/uL (4.8-10.8)
--- NOTE | 2019-07-18 10:58 | Nephrology Progress Note ---
Date of Service July 18, 2019 Assessment & Plan (1) End-stage renal disease on hemodialysis: 58 yo F with ESRD on HD TTS. Admitted with rt hand ischemic ulcer. Rx IV Daptomycin. Debridement on 07/04/2019 and 07/09/19, will continue on daptomycin post dialysis at the dialysis unit. HD TTS schedule. Continue outpatient Rx at [facility] upon discharge. Epogen and Venofer provided with dialysis during admission for anemia. Had dialysis yesterday, currently overall feeling well, volume status, electrolyte, blood pressure acceptable. Waiting to be discharged today. --continue Nephrocaps and Renvela as phosphate binder --dose medications for GFR less than 10, right arm nephrology precaution --okay to be discharged from nephrology standpoint, please notify dialysis unit at [facility] upon discharge for next dialysis Friday07/20/2019 Will follow Subjective Kortney was seen examined this morning. Overall she is feeling well and looking forward to go home possibly later today. Blood pressure stable. Volume status acceptable. Electrolyte acceptable. Review of Systems Review of Systems: All systems reviewed & are unremarkable except as noted in HPI & below Physical Exam Constitutional: WD/WN, vitals as above well developed and well nourished; no acute distress (With pain in right hand) Respiratory: normal respiratory effort, lungs clear to auscultation Cardiovascular: RRR, no murmur, no edema Extremities: + AV fistula (Right brachiocephalic AV fistula with thrill and bruit right hand incision.) Neurologic: moves all extremities and awake; not confused Psychiatric: A+Ox3, euthymic affect Results & Data Vital Signs (Past 12 Hours) Vital Signs Temp Pulse Resp BP BP Pulse Ox 07/18/19 08:00 36.3 C L 82 20 114/71 96 07/18/19 04:00 36.8 C 94 H 18 103/54 L 95 07/17/19 23:00 36.7 C 85 18 119/75 98 PG Care Time/CCT Total # of Minutes Spent Total Time Spent with Patient: Total time spent is greater than 50% in coordination of care (as documented) at patient's floor/unit and/or counseling patient:
[2019-07-18 11:30] LABS: BUN Creatinine Ratio 4.5 (10-20); Calcium 9.2 mg/dl (8.5-10.1); Creatinine Clr Calc Pharmacy 15.1 ml/min; Est GFR (African American) 11.7; Est GFR (Non-African American) 10.1; Potassium 4.3 mmol/L (3.5-5.1)
--- NOTE | 2019-07-18 13:07 | Family Medicine Progress Note ---
Date of Service July 18, 2019 Assessment & Plan (1) Cellulitis of right hand: 58-year-old female with DM, A. fib, hypothyroidism, RLS, on dialysis for ESRD transferred to [facility] for right hand infection now on Daptomycin. Was previously on Vancomycin and linezolid at the outside facility and previously failed imipenem/cilastin therapy. Orthopedic surgery performed, operative debridement 07/04/2019, 4th finger amputation on 07/09. Discharge anticipated 07/19 currently to SNF. Acute right hand infection - MRI results highly suspicious for osteomyelitis of the 4th metacarpal base, concern for septic arthritis, concern for infection of the tenosynovitis of the flexor tendon of the 4th digit - wound cultures grew MRSA from 07/01/2019 - no indications for vascular surgical intervention - Continue on Daptomycin 450 mg IV Q48h. Last dose given day of d/c, 07/18. -D/C'd ciprofloxacin per ID; not concerned about pseudomonas . Per ID will need six weeks of IV antibiotics daptomycin moving forward q 48 hour dosing. [facility] has agreed to administering IV dapto after HD sessions Friday, , Friday. -Pt will need weekly cbc, cmp, esr, cpk while on abx -07/09: S/P right hand I&D and amputation 4th finger. Will f/u [facility] with Dr. Colon in 10-14 days -Pain: PO [place] 5/325 mg q4h prn, IV dilaudid .5 mg q4h prn ESRD - Access US performed on arrival indicates patent BPG and patent AVF - HD TThS as scheduled per nephrology Hx of Colon Cancer son mentioned that patient has history of colon cancer diagnosed at [facility] pres [facility] in [place] Requested records transferred over Patient requesting follow up with [facility] oncology; Dr. Vieyra aware who recommended outpatient scheduling. Diabetes - A1C 6.0 (07/02) - BSG managed with ISS here A. fib w/ history of CVA -Discussed with PCP and found that pt had significant bleeding when on Coumadin, but was doing well on apixaban and requested that we switch her anticoagulation back prior to discharge -apixaban 2.5 BID Hypothyroid Continue home synthroid 250 mg RLS - continue Pramipexole .5 mg QHS Supervising Physician Co-Signing Physician Notes I personally examined the patient and verified all niño points of history and exam, discussed case, and agree with decision making with Dr Prasad no significant hx. discharge order signed at 1106. snf unable to accept. Vitals noted, in general she is resting comfortably and appears in nad. HEENT normocephalic atraumatic mucous membranes moist. Breathing unlabored no accessory muscle use good effort. Skin shows no rashes no pallor or icterus. Right hand is dressed Hand cellulitis/osteomy/septic joint/tenosynovitiscontinue daptomycin and wound care. Stable for SNF once today accept INR therapeutic, but given discussion with PCP at [facility], changed back to apixiban due to prior severe bleed on coumadin Otherwise as above, anticipate return to SNF tomorrow. Subjective Pt doing well, stated she had some mild soreness of the hand this AM but had not received pain meds yet. Denies [place], blurry vision, chest pain, palps, SOB, N/V, diarrhea, constipation. Review of Systems Review of Systems: All systems reviewed & are unremarkable except as noted in HPI & below Physical Exam Physical Exam: General: Alert, orientedx2. No acute distress HEENT: NC/AT, PERRLA, EOMI, oropharynx moist. Chest: Nontender to palpation. CV: RRR, Normal s1, s2. No murmurs appreciated Resp: Breath sounds clear bilaterally, no increased effort of breathing. Abdomen: Soft, nontender, nondistended. No guarding. No organomegaly appreciated. Extremities: Right hand bandaged with amputated digits. Thumb and 1 finger protruding. Bandage clean without evidence of drainage or blood. No edema in lower extremities bilaterally. Results & Data Vital Signs (Past 12 Hours) Vital Signs Temp Pulse Resp BP BP Pulse Ox 07/18/19 12:07 36.9 C 71 18 93/56 L 98 07/18/19 08:00 36.3 C L 82 20 114/71 96 07/18/19 04:00 36.8 C 94 H 18 103/54 L 95 Laboratory Results Laboratory Results - last 24 hr 07/17/19 07/17/19 07/17/19 13:35 16:46 20:11 WBC RBC Hgb Hct MCV MCH MCHC RDW Std Deviation RDW Coeff of Tommy Plt Count MPV Immature Gran % (Auto) Neut % (Auto) Lymph % (Auto) [place] % (Auto) Eos % (Auto) Baso % (Auto) Immature Gran # (Auto) Neut # (Auto) Lymph # (Auto) [place] # (Auto) Eos # (Auto) Baso # (Auto) Sodium Potassium Chloride Carbon Dioxide Anion Gap BUN Creatinine Est Cr Clr Drug Dosing Est GFR ( Amer) Est GFR (Non-Af Amer) BUN/Creatinine Ratio Glucose POC Glucose 153 H 181 H 199 H Calcium 07/18/19 07/18/19 07/18/19 07:41 10:30 10:30 WBC 6.71 RBC 3.44 L Hgb 10.4 L Hct 33.2 L MCV 96.5 MCH 30.2 MCHC 31.3 L RDW Std Deviation 55.5 H RDW Coeff of Tommy 15.7 H Plt Count 256 MPV 9.8 Immature Gran % (Auto) 0.1 Neut % (Auto) 59.9 Lymph % (Auto) 28.5 [place] % (Auto) 10.0 Eos % (Auto) 1.2 Baso % (Auto) 0.3 Immature Gran # (Auto) 0.01 Neut # (Auto) 4.02 Lymph # (Auto) 1.91 [place] # (Auto) 0.67 H Eos # (Auto) 0.08 Baso # (Auto) 0.02 Sodium 135 L Potassium 4.3 Chloride 99 Carbon Dioxide 26 Anion Gap 11.0 BUN 20 H Creatinine 4.45 H D Est Cr Clr Drug Dosing 15.1 Est GFR ( Amer) 11.7 Est GFR (Non-Af Amer) 10.1 BUN/Creatinine Ratio 4.5 L Glucose 179 H POC Glucose 127 H Calcium 9.2 07/18/19 11:48 WBC RBC Hgb Hct MCV MCH MCHC RDW Std Deviation RDW Coeff of Tommy Plt Count MPV Immature Gran % (Auto) Neut % (Auto) Lymph % (Auto) [place] % (Auto) Eos % (Auto) Baso % (Auto) Immature Gran # (Auto) Neut # (Auto) Lymph # (Auto) [place] # (Auto) Eos # (Auto) Baso # (Auto) Sodium Potassium Chloride Carbon Dioxide Anion Gap BUN Creatinine Est Cr Clr Drug Dosing Est GFR ( Amer) Est GFR (Non-Af Amer) BUN/Creatinine Ratio Glucose POC Glucose 194 H Calcium Medications Administered Home Medications Selan Silver Protectant 1 applic TOPICAL BID 03/24/19 [History] lidocaine-prilocaine 1 applic TOPICAL DIRECTED PRN 03/24/19 [History Confirmed 03/24/19] acetaminophen 500 mg PO Q6 PRN MDD 3000 07/01/19 [History Confirmed 07/01/19] aspirin 81 mg PO DAILY 07/01/19 [History Confirmed 07/01/19] bisacodyl 5 mg PO 07/01/19 [History] bisacodyl 10 mg CA DAILY PRN 07/01/19 [History Confirmed 07/01/19] calcium carbonate [Tums] PO HS 07/01/19 [History] cholecalciferol (vitamin D3) 2,000 unit PO DAILY 07/01/19 [History Confirmed 07/01/19] docusate sodium 100 mg PO BID 07/01/19 [History Confirmed 07/01/19] insulin glargine 20 unit SUBCUT BID 07/01/19 [History Confirmed 07/01/19] insulin lispro 7 - 9 unit SUBCUT BID 07/01/19 [History Confirmed 07/01/19] metoprolol tartrate 25 mg PO BID 07/01/19 [History Confirmed 07/01/19] polyethylene glycol 3350 17 g PO DAILY 07/01/19 [History Confirmed 07/01/19] pramipexole 0.25 mg PO HS 07/01/19 [History Confirmed 07/01/19] sertraline 37.5 mg PO DAILY 07/01/19 [History Confirmed 07/01/19] sevelamer carbonate 800 mg PO TIDM 07/01/19 [History Confirmed 07/01/19] warfarin 3 mg PO DAILY 07/01/19 [History Confirmed 07/01/19] daptomycin 450 mg IV DAILY #10 ea 07/13/19 [Rx] hydrocodone-acetaminophen [[place]] 1 tab PO Q4H PRN #30 tab 07/13/19 [Rx] levothyroxine 250 mcg PO DAILY #30 tab 07/13/19 [Rx] Active Medications Hydrocodone Bitart/Acetaminophen ([place] 5/325) 1 tab PO Q4H PRN PRN Reason: Pain Stop: 07/25/19 16:10 Last Admin: 07/18/19 10:50 Dose: 1 tab Documented by: Apixaban (Eliquis) 2.5 mg PO BID [facility] Stop: 08/13/19 20:59 Last Admin: 07/18/19 08:01 Dose: 2.5 mg Documented by: Aspirin (Ecotrin Ectab) 81 mg PO DAILY [facility] Stop: 08/01/19 08:59 Last Admin: 07/18/19 08:00 Dose: 81 mg Documented by: Bisacodyl (Dulcolax) 10 mg CA DAILY PRN PRN Reason: Constipation Stop: 07/31/19 20:13 Bisacodyl (Dulcolax) 5 mg PO DAILY PRN PRN Reason: Constipation Stop: 07/31/19 20:13 Last Admin: 07/08/19 09:14 Dose: 5 mg Documented by: Bumetanide (Bumex) 2 mg PO DAILY [facility] Stop: 08/01/19 08:59 Last Admin: 07/18/19 08:00 Dose: 2 mg Documented by: Dextrose (Dextrose 50%) 25 - 50 ml IV UD PRN; Protocol PRN Reason: Hypoglycemia Protocol Stop: 07/31/19 20:08 Diphenhydramine HCl (Benadryl) 25 mg IV Q4H PRN PRN Reason: Allergic Reaction Stop: 07/31/19 20:37 Last Admin: 07/15/19 01:16 Dose: 25 mg Documented by: Docusate Sodium (Colace) 100 mg PO BID [facility] Stop: 08/08/19 20:59 Last Admin: 07/18/19 07:59 Dose: 100 mg Documented by: Glucose (Dex4 Glucose) 4 - 8 tabs PO UD PRN; Protocol PRN Reason: Hypoglycemia Protocol Stop: 07/31/19 20:08 Glucose (Glucose 40%) 15 - 30 gm PO UD PRN; Protocol PRN Reason: Hypoglycemia Protocol Stop: 07/31/19 20:08 Hydromorphone HCl (Dilaudid) 0.5 mg IV Q4H PRN PRN Reason: Pain Stop: 07/18/19 22:27 Last Admin: 07/17/19 19:33 Dose: 0.5 mg Documented by: Daptomycin 450 mg/ Syringe 9 mls @ 0 mls/min IV Q48H [facility]ANEY; Protocol Stop: 08/24/19 11:59 Last Admin: 07/17/19 13:39 Dose: 9 mls/min Documented by: Insulin Aspart (Novolog Flexpen) 0 units SC TID@1130,1630,2100 [facility]; Protocol Stop: 08/14/19 11:29 Last Admin: 07/18/19 12:18 Dose: 6 units Documented by: Insulin Aspart (Novolog Flexpen) 0 units SC DAILY@0730 [facility]; Protocol Stop: 08/14/19 07:29 Last Admin: 07/18/19 08:35 Dose: 16 units Documented by: Insulin Glargine (Lantus Solostar Pen) 11 units SC QAM [facility]; Protocol Stop: 08/10/19 08:59 Last Admin: 07/18/19 08:04 Dose: 11 units Documented by: Levothyroxine Sodium (Synthroid) 250 mcg PO DAILYBB [facility] Stop: 08/01/19 06:29 Last Admin: 07/18/19 05:45 Dose: 250 mcg Documented by: Lidocaine/Prilocaine (Emla 2.5%) 1 ea EXT DAILY PRN PRN Reason: PRIOR TO DIALYSIS Stop: 07/31/19 20:13 Metoprolol Tartrate (Lopressor) 25 mg PO BID [facility] Stop: 07/31/19 20:59 Last Admin: 07/18/19 07:59 Dose: 25 mg Documented by: Miscellaneous (Carbohydrates For Hypoglycemia) 15 - 30 gm PO UD PRN PRN Reason: Hypoglycemia Treatment Stop: 07/31/19 20:08 Miscellaneous Information (Consult Glycemic Management Pharmacy) 1 ea N/A UD PRN; Protocol PRN Reason: Consult Stop: 07/31/19 21:14 Multi-Ingredient Cream (Hydrocerin) 1 appln EXT BID [facility] Stop: 08/01/19 20:59 Last Admin: 07/18/19 08:04 Dose: 1 appln Documented by: Ondansetron HCl (Zofran) 4 mg IV Q4H PRN PRN Reason: Nausea Stop: 08/13/19 20:48 Last Admin: 07/17/19 21:35 Dose: 4 mg Documented by: Polyethylene Glycol (Miralax Powder Packet) 17 gm PO DAILY [facility] Stop: 08/09/19 08:59 Last Admin: 07/18/19 08:00 Dose: 17 gm Documented by: Pramipexole Dihydrochloride (Mirapex) 0.25 mg PO HS [facility] Stop: 07/31/19 20:59 Last Admin: 07/17/19 19:35 Dose: 0.25 mg Documented by: Sennosides (Senokot) 8.6 mg PO HS PRN PRN Reason: Constipation Stop: 07/31/19 20:13 Last Admin: 07/08/19 20:51 Dose: 8.6 mg Documented by: Sevelamer HCl (Renagel) 800 mg PO TIDM [facility] Stop: 08/01/19 07:59 Last Admin: 07/18/19 12:19 Dose: 800 mg Documented by: Vitamin B Complex/Folic Acid (Nephrocaps) 1 cap PO QAM [facility] Stop: 08/02/19 10:59 Last Admin: 07/18/19 08:01 Dose: 1 cap Documented by: Vitamin D (Vitamin D3) 2,000 units PO DAILY [facility] Stop: 08/09/19 08:59 Last Admin: 07/18/19 08:01 Dose: 2,000 units Documented by: PG Care Time/CCT Total # of Minutes Spent Total Time Spent with Patient: Total time spent is greater than 50% in coordination of care (as documented) at patient's floor/unit and/or counseling patient:
[2019-07-18] MEDS: PRAMIPEXOLE DIHYDROCHLO 0.25 MG TAB PO SCH (21:05)
[2019-07-19] MEDS: LEVOTHYROXINE SODIUM 125 MCG TABLET PO SCH (05:49)
[2019-07-19] MEDS: SEVELAMER HCL 800 MG TABLET PO SCH (07:45)
[2019-07-19] MEDS: ASPIRIN 81 MG ECTAB PO SCH (07:45)
[2019-07-19] MEDS: DOCUSATE SODIUM 100 MG CAP PO SCH (07:45)
[2019-07-19] MEDS: METOPROLOL TARTRATE 25 MG TAB PO SCH (07:45)
[2019-07-19] MEDS: APIXABAN 2.5 MG TAB PO SCH (07:46)
[2019-07-19] MEDS: CHOLECALCIFEROL 1,000 UNITS TAB PO SCH (07:46)
[2019-07-19 07:47] LABS: Basophils # (auto) 0.03 K/uL (0-0.2); Basophils % (auto) 0.4 %; Eosinophils # (auto) 0.11 K/uL (0-0.5); Eosinophils % (auto) 1.5 %; Hematocrit (blood only) 32.4 % (37-47); Hemoglobin 10.5 g/dL (12.0-16.0); Immature Granulocytes # (auto) 0.03 K/uL (0.00-0.02); Immature Granulocytes % (auto) 0.4 %; Lymphocytes # (auto) 2.37 K/uL (1.2-3.4); Lymphocytes % (auto) 31.3 %; Mean Corpuscular Hgb Conc 32.4 g/dL (32-36); Mean Platelet Volume 10.1 fL (7.4-10.4); Monocytes # (auto) 0.93 K/uL (0.11-0.59); Monocytes % (auto) 12.3 %; Neutrophils # (auto) 4.11 K/uL (1.4-6.5); Neutrophils % (auto) 54.1 %; Platelet Count 266 K/uL (130-400); RDW Coefficient of Variation 15.6 % (11.5-14.5); RDW Standard Deviation 54.5 fL (36.4-46.3); Red Blood Count 3.41 M/uL (4.2-5.4); White Blood Count 7.58 K/uL (4.8-10.8)
[2019-07-19] MEDS: NEPHROCAPS PO SCH (07:47)
[2019-07-19] MEDS: POLYETHYLENE (MIRALAX) 17 GM PACK PO SCH (07:47)
[2019-07-19] MEDS: BUMETANIDE 1 MG TAB PO SCH (07:47)
[2019-07-19] MEDS: EUCERIN CR 120 GM JAR EXT SCH (07:48)
[2019-07-19 08:32] LABS: BUN Creatinine Ratio 5.6 (10-20); Calcium 9.2 mg/dl (8.5-10.1); Creatinine Clr Calc Pharmacy 12.1 ml/min; Est GFR (Non-African American) 7.8; Potassium 4.7 mmol/L (3.5-5.1)
[2019-07-19] MEDS: INSULIN ASPART 100 UNITS/ML 3 ML PEN SC SCH (08:54)
[2019-07-19] MEDS ORDERED: INSULIN GLARGINE SOLOSTAR 100 UNITS/ML 3 ML PEN SC SCH (09:00)
--- NOTE | 2019-07-19 09:24 | Nephrology Progress Note ---
Date of Service July 19, 2019 Assessment & Plan (1) End-stage renal disease on hemodialysis: 58 yo F with ESRD on HD TTS. Admitted with rt hand ischemic ulcer. Rx IV Daptomycin. Debridement on 07/04/2019 and 07/09/19, will continue on daptomycin post dialysis at the dialysis unit. HD TTS schedule. Continue outpatient Rx at [facility] upon discharge. Epogen and Venofer provided with dialysis during admission for anemia. Had dialysis yesterday, currently overall feeling well, volume status, electrolyte, blood pressure acceptable. Waiting to be discharged today. --continue Nephrocaps and Renvela as phosphate binder --dose medications for GFR less than 10, right arm nephrology precaution --okay to be discharged from nephrology standpoint, please notify dialysis unit at [facility] upon discharge for next dialysis Friday07/20/2019 Subjective Ms. Ardon was seen & examined in her hospital room this morning. She currently denies fever or uremic symptoms. Her discomfort from recent hand surgery has resolved. She hopes to return home today Review of Systems Constitutional: no fever, no chills and no weakness Eyes: no worsening vision and no problem reported Ear, Nose, Mouth, Throat: no problem reported Respiratory: no cough and no dyspnea Cardiovascular: no chest pain, no palpitations and no edema Gastrointestinal: no abdominal pain, no nausea, no vomiting and no diarrhea/loose stools Genitourinary: no dysuria and no hematuria Musculoskeletal: no back pain Integumentary: no rash Neurologic: no dizziness and no confusion Physical Exam Constitutional: + ill appearing and + obese Eyes: PERRL, conjunctivae normal, anicteric sclerae ENMT: external ear and nose normal, oropharynx normal Neck: trachea midline, no thyromegaly Respiratory: normal respiratory effort, lungs clear to auscultation Cardiovascular: RRR, no murmur, no edema Extremities: + AV fistula (no erythema. AVF + bruit) Gastrointestinal (Abdomen): normal bowel sounds, soft, nontender, no hepatosplenomegaly Musculoskeletal: no cyanosis or clubbing, extremities motor strength 5/5 Neurologic: awake; not confused Results & Data Vital Signs (Past 12 Hours) Vital Signs Temp Pulse Resp BP BP Pulse Ox 07/19/19 07:00 36.7 C 78 18 133/97 96 07/19/19 03:54 36.8 C 77 20 130/64 98 07/18/19 22:39 36.7 C 84 20 120/78 97 Laboratory Results Laboratory Tests 07/19/19 07/19/19 07:18 07:18 WBC 7.58 Hgb 10.5 L Hct 32.4 L Plt Count 266 Sodium 133 L Potassium 4.7 Chloride 100 Carbon Dioxide 25 BUN 31 H D Creatinine 5.50 H* D Glucose 153 H
== END 2019-07-19 10:15 | DRG 255 ==
LOC: SUATTDRO 18:51 → 2N 18:51
DX: Z79.82 Long term (current) use of aspirin; M65.88 Other synovitis and tenosynovitis, other site; Z79.01 Long term (current) use of anticoagulants; Z88.8 Allergy status to other drugs, medicaments and biological substances; N18.6 End stage renal disease; E11.52 Type 2 diabetes mellitus with diabetic peripheral angiopathy with gangrene; G25.81 Restless legs syndrome; E11.69 Type 2 diabetes mellitus with other specified complication; Z88.5 Allergy status to narcotic agent; I12.0 Hypertensive chronic kidney disease with stage 5 chronic kidney disease or end stage renal disease; E11.622 Type 2 diabetes mellitus with other skin ulcer; E11.22 Type 2 diabetes mellitus with diabetic chronic kidney disease; E66.01 Morbid (severe) obesity due to excess calories; D63.0 Anemia in neoplastic disease; Z79.4 Long term (current) use of insulin; N25.81 Secondary hyperparathyroidism of renal origin; E11.40 Type 2 diabetes mellitus with diabetic neuropathy, unspecified; I99.8 Other disorder of circulatory system; L98.499 Non-pressure chronic ulcer of skin of other sites with unspecified severity; Z89.021 Acquired absence of right finger(s); E03.9 Hypothyroidism, unspecified; Z51.81 Encounter for therapeutic drug level monitoring; M00.041 Staphylococcal arthritis, right hand; Z79.899 Other long term (current) drug therapy; Z83.3 Family history of diabetes mellitus; L03.113 Cellulitis of right upper limb; Z86.73 Personal history of transient ischemic attack (TIA), and cerebral infarction without residual deficits; C18.9 Malignant neoplasm of colon, unspecified; I96 Gangrene, not elsewhere classified; Z99.2 Dependence on renal dialysis; M86.141 Other acute osteomyelitis, right hand; Z88.1 Allergy status to other antibiotic agents; Z88.0 Allergy status to penicillin; Z86.14 Personal history of Methicillin resistant Staphylococcus aureus infection; Z68.41 Body mass index [BMI] 40.0-44.9, adult; Z88.2 Allergy status to sulfonamides; R41.0 Disorientation, unspecified; B95.62 Methicillin resistant Staphylococcus aureus infection as the cause of diseases classified elsewhere; Z87.891 Personal history of nicotine dependence; M83.9 Adult osteomalacia, unspecified